=== PATIENT | female | born 1980 | race Caucasian/White ===

== ENCOUNTER 2018-06-26 18:13 | Outpatient (REF) | payer BC, SELFPAY ==
[2018-06-26 22:29] LABS: HCT 38.1 % (36.0-46.0); HGB 11.7 g/dL (12.0-15.5); Mean Corp. HGB Concentration 30.7 g/dL (32.0-36.0); Mean Corpuscular Hemoglobin 22.1 pg (27.0-33.0); Mean Platelet Volume 10.7 fL (8.0-11.0); Platelet Count 397 x1000/uL (130-400); RBC 5.29 m/cumm (4.00-5.20); RBC Distribution Width 17.5 % (11.7-14.6); White Blood Cell Count 9.22 k/cumm (4.4-10.8)
[2018-06-26 22:41] LABS: ALT 98 U/L (12-78); AST 112 U/L (15-37); Albumin 4.1 g/dL (3.4-5.0); Alkaline Phosphatase 77 U/L (46-116); BUN 13 mg/dL (7-18); Bilirubin, Total 0.4 mg/dL (0.2-1.0); Calcium 9.5 mg/dL (8.5-10.1); Chloride 100 mmol/L (98-107); Cholesterol 253 mg/dL (50-200); Glucose 95 mg/dL (70-100); HDL Cholesterol 65 mg/dL (40-60); LDL CHOLESTEROL 176 mg/dL (<100); Sodium 137 mmol/L (136-145); TSH 5.52 uIU/mL (0.358-3.74); Total Protein 8.1 g/dL (6.4-8.2); Triglyceride 101 mg/dL (30-150)
[2018-06-27 12:20] LABS: FREE T4 0.86 ng/dL (0.76-1.46)
== END 2018-06-26 18:33 ==
LOC: NCHCN 18:13
PROVIDERS: PCP Family Medicine; Visit Provider Registered Nurse
DX: R07.89 Other chest pain (principal); R94.6 Abnormal results of thyroid function studies; R03.0 Elevated blood-pressure reading, without diagnosis of hypertension; F41.9 Anxiety disorder, unspecified
CPT/HCPCS: 80053; 80061; 83721; 85027; 84439; 84443

== ENCOUNTER 2018-07-10 15:53 | Outpatient (REF) | payer BC, SELFPAY ==
[2018-07-10 22:13] LABS: Iron 13 ug/dL (50-175); Total Iron Binding Capacity 438 ug/dL (250-450); Transferrin Sat 3 % (15-50)
[2018-07-10 22:26] LABS: ALT 105 U/L (12-78); AST 161 U/L (15-37); Ferritin 18 ng/mL (8-388)
[2018-07-10 22:30] LABS: Abs Immature Grans 0.01 k/cumm (0.0-0.09); Absolute Basophil Count 0.07 k/cumm (0.0-0.2); Absolute Lymphocyte Count 1.47 k/cumm (1.2-3.4); Absolute Monocyte Count 0.73 k/cumm (0.11-0.7); Absolute Neutrophil Count 5.15 k/cumm (1.2-6.7); Basophils % 0.9; Eosinophils % 2.6; HCT 37.8 % (36.0-46.0); HGB 11.4 g/dL (12.0-15.5); Immature Grans % 0.1; Lymphocytes % 19.3; Mean Corp. HGB Concentration 30.2 g/dL (32.0-36.0); Mean Corpuscular Hemoglobin 21.6 pg (27.0-33.0); Mean Corpuscular Volume 71.6 fL (80-95); Mean Platelet Volume 10.5 fL (8.0-11.0); Monocytes % 9.6; Neutrophils % 67.5; Platelet Count 490 x1000/uL (130-400); RBC 5.28 m/cumm (4.00-5.20); RBC Distribution Width 17.2 % (11.7-14.6); White Blood Cell Count 7.63 k/cumm (4.4-10.8)
[2018-07-10 23:33] LABS: Hypochromasia 1+; Microcytosis 1+
== END 2018-07-10 16:13 ==
LOC: NCHCN 15:53
PROVIDERS: PCP Family Medicine; Visit Provider Registered Nurse
DX: D64.9 Anemia, unspecified (principal); R79.89 Other specified abnormal findings of blood chemistry
CPT/HCPCS: 82728; 83540; 83550; 84450; 84460; 85025

== ENCOUNTER 2018-07-19 13:13 | Outpatient (REF) | payer BC, SELFPAY ==
[2018-07-21 11:10] LABS: Hepatitis B Surface Ag Negative (NEGAT)
[2018-07-21 12:25] LABS: Hepatitis C Ab w Rflx HCV PCR Negative (NEGAT)
[2018-07-21 13:03] LABS: HBs Antibody, Quant 44.7 mIU/mL; Hepatitis B Surface Ab Positive
[2018-07-21 13:51] LABS: Hep B Core Antibody Negative (NEGAT)
== END 2018-07-19 13:33 ==
LOC: NCHCN 13:13
PROVIDERS: PCP Family Medicine; Visit Provider Registered Nurse
DX: R79.89 Other specified abnormal findings of blood chemistry (principal); Z11.59 Encounter for screening for other viral diseases
CPT/HCPCS: 86704; 86706; 86803; 87340

== ENCOUNTER 2018-09-18 13:08 | Outpatient (REF) | payer BC, SELFPAY ==
[2018-09-18 22:16] LABS: ALT 133 U/L (12-78); AST 173 U/L (15-37); Albumin 3.7 g/dL (3.4-5.0); Alkaline Phosphatase 96 U/L (46-116); Bilirubin, Direct 0.17 mg/dL (0.00-0.20); Bilirubin, Total 0.4 mg/dL (0.2-1.0); Total Protein 7.9 g/dL (6.4-8.2)
== END 2018-09-18 13:28 ==
LOC: NCHCN 13:08
PROVIDERS: PCP Family Medicine; Visit Provider Registered Nurse
DX: R79.89 Other specified abnormal findings of blood chemistry (principal)
CPT/HCPCS: 80076

== ENCOUNTER 2019-01-03 16:04 | Outpatient (REF) | payer BC, SELFPAY ==
--- NOTE | 2019-01-03 15:30 | PAPFT_PTH ---
PATIENT: Violet Cowan LOC: [facility]#:[id number] AGE/SX: 38/F ROOM: RE01/03/[address]: Julieta Odell : 1980 BED: DIS: 01/03/2019 SPEC #: [id number] RECD: 01/04/19 12:35 STATUS: LAWANDA RESri #: [id number] ELVIS: 01/03/19 15:[address]: Julieta Odell DEPT: [facility] Cytology RECD BY: Raine Juarez ENTERED: 01/04/19 12:35 SP TYPE: PAPFT OTHR DR: Leidy Fitzgerald Tissues: 1 - CX/ENDOCX FOR PAP SMEARS Procedures: PAP THIN PREP/UVM Screening HPV DNA PROBE Comments: [id number]
[2019-01-03 22:02] LABS: HCT 31.3 % (36.0-46.0); HGB 8.9 g/dL (12.0-15.5); Mean Corp. HGB Concentration 28.4 g/dL (32.0-36.0); Mean Corpuscular Hemoglobin 18.7 pg (27.0-33.0); Mean Corpuscular Volume 65.9 fL (80-95); Mean Platelet Volume 10.3 fL (8.0-11.0); Platelet Count 634 x1000/uL (130-400); RBC 4.75 m/cumm (4.00-5.20); RBC Distribution Width 19.5 % (11.7-14.6); White Blood Cell Count 10.01 k/cumm (4.4-10.8)
[2019-01-03 22:13] LABS: ALT 72 U/L (12-78); AST 112 U/L (15-37); Albumin 3.7 g/dL (3.4-5.0); Alkaline Phosphatase 95 U/L (46-116); Bilirubin, Direct 0.19 mg/dL (0.00-0.20); Bilirubin, Total 0.5 mg/dL (0.2-1.0); Total Protein 7.5 g/dL (6.4-8.2)
== END 2019-01-03 16:24 ==
LOC: NCHCN 16:04
PROVIDERS: PCP Family Medicine; Visit Provider Registered Nurse
DX: D64.9 Anemia, unspecified (principal); R79.89 Other specified abnormal findings of blood chemistry; Z12.4 Encounter for screening for malignant neoplasm of cervix; Z11.51 Encounter for screening for human papillomavirus (HPV)
CPT/HCPCS: 80076; 85027; 88142; 87624

== ENCOUNTER 2019-01-17 11:22 | Outpatient (REF) | payer BC, SELFPAY ==
[2019-01-17 21:40] LABS: HCT 28.9 % (36.0-46.0); HGB 8.2 g/dL (12.0-15.5)
== END 2019-01-17 11:42 ==
LOC: NCHCN 11:22
PROVIDERS: PCP Family Medicine; Visit Provider Registered Nurse
DX: D64.9 Anemia, unspecified (principal)
CPT/HCPCS: 85014; 85018

== ENCOUNTER 2019-01-19 10:41 | Outpatient (REF) | payer BC, SELFPAY ==
[2019-01-19 21:26] LABS: Abs Immature Grans 0.01 k/cumm (0.0-0.09); Absolute Eosinophil Count 0.13 k/cumm (0.0-0.7); Absolute Lymphocyte Count 1.15 k/cumm (1.2-3.4); Absolute Monocyte Count 0.77 k/cumm (0.11-0.7); Absolute Neutrophil Count 5.35 k/cumm (1.2-6.7); Basophils % 1.3; Eosinophils % 1.7; HCT 34.6 % (36.0-46.0); HGB 9.7 g/dL (12.0-15.5); Immature Grans % 0.1; Lymphocytes % 15.3; Mean Corpuscular Hemoglobin 18.3 pg (27.0-33.0); Mean Corpuscular Volume 65.2 fL (80-95); Mean Platelet Volume 10.8 fL (8.0-11.0); Monocytes % 10.3; Neutrophils % 71.3; Platelet Count 522 x1000/uL (130-400); RBC 5.31 m/cumm (4.00-5.20); RBC Distribution Width 20.5 % (11.7-14.6); Reticulocyte 1.5 % (0.5-2.4); White Blood Cell Count 7.51 k/cumm (4.4-10.8)
[2019-01-19 21:50] LABS: Ferritin 12 ng/mL (8-388); Iron 393 ug/dL (50-175); Total Iron Binding Capacity 513 ug/dL (250-450); Transferrin Sat 77 % (15-50)
[2019-01-19 21:58] LABS: Anisocytosis 2+; Hypochromasia 1+; Macrocytosis 1+; Microcytosis 2+; Polychromasia Present
[2019-01-22 11:27] LABS: IgA 278 mg/dL (85-499); Interpretation SEE COMMENTS; Tissue Transglutaminase IgA <1.2 U/mL (<4.0)
== END 2019-01-19 11:01 ==
LOC: NCHCN 10:41
PROVIDERS: PCP Family Medicine; Visit Provider Family Medicine
DX: D64.9 Anemia, unspecified (principal)
CPT/HCPCS: 82784; 83516; 82728; 83540; 83550; 85025; 85045

== ENCOUNTER 2019-03-28 11:51 | Outpatient (REF) | payer BC, SELFPAY | END 2019-03-28 12:11 | LOC: NCHCN 11:51 | PROVIDERS: PCP Family Medicine; Visit Provider Registered Nurse | DX: Z87.440 Personal history of urinary (tract) infections (principal); F41.9 Anxiety disorder, unspecified; N98.2 Complications of attempted introduction of fertilized ovum following in vitro fertilization; R60.0 Localized edema | CPT/HCPCS: 87077; 87086 ==

== ENCOUNTER 2019-07-16 21:31 | Outpatient (REF) | payer BC, SELFPAY ==
[2019-07-16 21:53] LABS: Bilirubin Negative (Negative); Blood Trace-intact (Negative); Clarity Sl Cloudy (Clear); Glucose Negative (Negative); Ketones Negative (Negative); Leukocyte Esterase Moderate (Negative); Nitrite Negative (Negative); Specific Gravity 1.025 (1.005-1.025); Urobilinogen 0.2 EU/dL (Up TO 0.2); pH 6.5 (5-8)
[2019-07-16 22:12] LABS: Bacteria Many HPF (Negative); C & S Indicated? Yes; Casts Negative LPF (Negative); Crystals Few Amorphous HPF (Negative); Epithelial Cells Few HPF (Negative); Mucus Negative (Negative); WBC 20-50 HPF (0-5)
== END 2019-07-16 21:51 ==
LOC: NCHCN 21:31
PROVIDERS: PCP Family Medicine; Visit Provider Family Medicine
DX: N39.0 Urinary tract infection, site not specified (principal); Z87.440 Personal history of urinary (tract) infections
CPT/HCPCS: 87077; 81003; 81015; 87086; 87186

== ENCOUNTER 2019-07-23 11:29 | Outpatient (REF) | payer BC, SELFPAY | END 2019-07-23 11:49 | LOC: NCHCN 11:29 | PROVIDERS: PCP Family Medicine; Visit Provider Family Medicine | DX: N39.0 Urinary tract infection, site not specified (principal); Z87.440 Personal history of urinary (tract) infections | CPT/HCPCS: 87086 ==

== ENCOUNTER 2019-08-09 11:39 | Outpatient (REF) | payer BC, SELFPAY ==
[2019-08-09 21:37] LABS: HCT 31.1 % (36.0-46.0); HGB 8.9 g/dL (12.0-15.5); Mean Corp. HGB Concentration 28.6 g/dL (32.0-36.0); Mean Corpuscular Hemoglobin 22.7 pg (27.0-33.0); Mean Corpuscular Volume 79.3 fL (80-95); Mean Platelet Volume 10.8 fL (8.0-11.0); Platelet Count 707 x1000/uL (130-400); RBC 3.92 m/cumm (4.00-5.20); RBC Distribution Width 22.3 % (11.7-14.6); White Blood Cell Count 7.63 k/cumm (4.4-10.8)
[2019-08-09 21:55] LABS: ALT 49 U/L (14-59); AST 124 U/L (15-37); Albumin 3.2 g/dL (3.4-5.0); Alkaline Phosphatase 124 U/L (46-116); Anion Gap 12.5 mmol/L (3-11); BUN 7 mg/dL (7-18); Bilirubin, Total 0.5 mg/dL (0.2-1.0); CO2 25.5 mmol/L (21.0-32.0); Calcium 8.9 mg/dL (8.5-10.1); Chloride 105 mmol/L (98-107); Glucose 81 mg/dL (74-106); Potassium 4.1 mmol/L (3.5-5.1); Sodium 143 mmol/L (136-145); Total Protein 6.7 g/dL (6.4-8.2)
[2019-08-09 22:09] LABS: Bacteria Many HPF (Negative); C & S Indicated? C&S Done As Ordered; Crystals Negative HPF (Negative); Epithelial Cells Many HPF (Negative); Mucus Negative (Negative); Other Cells Few Transitional (Negative); RBC 0-2 HPF (0-2)
== END 2019-08-09 11:59 ==
LOC: NCHCN 11:39
PROVIDERS: PCP Family Medicine; Visit Provider Registered Nurse
DX: R60.0 Localized edema (principal); D64.9 Anemia, unspecified; R79.89 Other specified abnormal findings of blood chemistry; N39.0 Urinary tract infection, site not specified
CPT/HCPCS: 80053; 85027; 87077; 81015; 87086

== ENCOUNTER 2019-09-13 19:57 | Outpatient (REF) | payer BC, SELFPAY ==
[2019-09-13 21:08] LABS: HGB 9.9 g/dL (12.0-15.5); Mean Corp. HGB Concentration 29.1 g/dL (32.0-36.0); Mean Corpuscular Hemoglobin 23.9 pg (27.0-33.0); Mean Corpuscular Volume 82.1 fL (80-95); Mean Platelet Volume 10.3 fL (8.0-11.0); Platelet Count 470 x1000/uL (130-400); RBC 4.14 m/cumm (4.00-5.20); RBC Distribution Width 19.5 % (11.7-14.6); White Blood Cell Count 7.86 k/cumm (4.4-10.8)
[2019-09-13 21:34] LABS: ALT 55 U/L (14-59); AST 197 U/L (15-37); Albumin 3.4 g/dL (3.4-5.0); Alkaline Phosphatase 116 U/L (46-116); Bilirubin, Total 0.4 mg/dL (0.2-1.0); Total Protein 7.2 g/dL (6.4-8.2)
[2019-09-13 21:49] LABS: Bilirubin, Direct 0.17 mg/dL (0.00-0.20)
== END 2019-09-13 20:17 ==
LOC: NCHCN 19:57
PROVIDERS: PCP Family Medicine; Visit Provider Registered Nurse
DX: D64.9 Anemia, unspecified (principal); R79.89 Other specified abnormal findings of blood chemistry
CPT/HCPCS: 80076; 85027

== ENCOUNTER 2019-09-24 11:05 | Outpatient (REF) | payer BC, SELFPAY ==
[2019-09-24 21:28] LABS: HCT 37.2 % (36.0-46.0); HGB 11.3 g/dL (12.0-15.5); Mean Corp. HGB Concentration 30.4 g/dL (32.0-36.0); Mean Corpuscular Hemoglobin 24.3 pg (27.0-33.0); Platelet Count 495 x1000/uL (130-400); RBC 4.65 m/cumm (4.00-5.20); RBC Distribution Width 17.7 % (11.7-14.6)
== END 2019-09-24 11:25 ==
LOC: NCHCN 11:05
PROVIDERS: PCP Family Medicine; Visit Provider Registered Nurse
DX: D64.9 Anemia, unspecified (principal)
CPT/HCPCS: 85027

== ENCOUNTER 2019-10-08 21:57 | Outpatient (REF) | payer BC, SELFPAY ==
[2019-10-08 21:44] LABS: HCT 35.3 % (36.0-46.0); HGB 10.7 g/dL (12.0-15.5); Mean Corp. HGB Concentration 30.3 g/dL (32.0-36.0); Mean Corpuscular Hemoglobin 24.2 pg (27.0-33.0); Mean Corpuscular Volume 79.9 fL (80-95); Mean Platelet Volume 10.6 fL (8.0-11.0); Platelet Count 355 x1000/uL (130-400); RBC 4.42 m/cumm (4.00-5.20); RBC Distribution Width 17.3 % (11.7-14.6); White Blood Cell Count 7.84 k/cumm (4.4-10.8)
== END 2019-10-08 22:17 ==
LOC: NCHCN 21:57
PROVIDERS: PCP Family Medicine; Visit Provider Registered Nurse
DX: K92.2 Gastrointestinal hemorrhage, unspecified (principal)
CPT/HCPCS: 85027

== ENCOUNTER 2019-10-29 09:12 | Outpatient (REF) | payer BC, SELFPAY ==
[2019-10-29 20:03] LABS: HGB 13.5 g/dL (12.0-15.5); Mean Corp. HGB Concentration 31.4 g/dL (32.0-36.0); Mean Corpuscular Hemoglobin 26.1 pg (27.0-33.0); Mean Platelet Volume 10.9 fL (8.0-11.0); Platelet Count 528 x1000/uL (130-400); RBC 5.18 m/cumm (4.00-5.20); RBC Distribution Width 18.7 % (11.7-14.6); White Blood Cell Count 16.16 k/cumm (4.4-10.8)
== END 2019-10-29 09:32 ==
LOC: NCHCN 09:12
PROVIDERS: PCP Family Medicine; Visit Provider Registered Nurse
DX: D64.9 Anemia, unspecified (principal)
CPT/HCPCS: 85027

== ENCOUNTER 2020-02-07 14:11 | Outpatient (REF) | payer BC, SELFPAY | END 2020-02-07 14:31 | LOC: NCHCN 14:11 | PROVIDERS: PCP Family Medicine; Visit Provider Registered Nurse | DX: Z87.440 Personal history of urinary (tract) infections (principal) | CPT/HCPCS: 87077; 87086; 87186 ==

== ENCOUNTER 2020-02-12 16:41 | Outpatient (REF) | payer BC, SELFPAY | END 2020-02-12 17:01 | LOC: NCHCN 16:41 | PROVIDERS: PCP Family Medicine; Visit Provider Family Medicine | DX: Z87.440 Personal history of urinary (tract) infections (principal) | CPT/HCPCS: 87086 ==

== ENCOUNTER 2020-04-25 12:02 | Outpatient (REF) | payer BC, SELFPAY ==
[2020-04-25 21:08] LABS: Abs Immature Grans 0.18 10^3/uL (0.0-0.06); HCT 34.8 % (36.0-46.0); HGB 11.5 g/dL (11.2-15.7); MCH 29.4 pg (27.0-33.0); MPV 11.2 fL (8.0-11.0); Nucleated RBC 0 %; Platelet Count 659 10^3/uL (130-400); RBC 3.91 10^6/uL (3.93-5.22); RDW 18.9 % (11.7-14.6); RDW-SD 59.9 fL
[2020-04-25 21:43] LABS: WBC 27.39 10^3/uL (4.4-10.8)
[2020-04-25 21:44] LABS: Absolute Lymphocyte Count 1.92 10^3/uL (1.2-3.4); Absolute Monocyte Count 2.47 10^3/uL (0.1-0.8); Absolute Neutrophil Count 23.01 10^3/uL (1.2-6.7); Bands % 4
[2020-04-25 21:45] LABS: Diff Comment Manual Differential; Poikilocytes 1+
[2020-04-25 21:59] LABS: ALT 38 U/L (14-59); AST 180 U/L (15-37); Albumin 1.9 g/dL (3.4-5.0); Alkaline Phosphatase 142 U/L (46-116); BUN 6 mg/dL (7-18); Calcium 8.2 mg/dL (8.5-10.1); Chloride 100 mmol/L (98-107); Glucose 98 mg/dL (74-106); Potassium 3.7 mmol/L (3.5-5.1); Sodium 135 mmol/L (136-145); Total Protein 5.8 g/dL (6.4-8.2)
[2020-04-25 22:13] LABS: Bilirubin, Total 19.2 mg/dL (0.2-1.0)
== END 2020-04-25 12:22 ==
LOC: NCHCN 12:02
PROVIDERS: PCP Family Medicine; Visit Provider Registered Nurse
DX: D64.9 Anemia, unspecified (principal); K92.2 Gastrointestinal hemorrhage, unspecified
CPT/HCPCS: 80053; 85025; 85610

== ENCOUNTER 2020-06-10 11:09 | Outpatient (REF) | payer BC, SELFPAY ==
[2020-06-10 21:10] LABS: Abs Immature Grans 0.06 10^3/uL (0.0-0.06); Absolute Basophil Count 0.03 10^3/uL (0.0-0.2); Absolute Eosinophil Count 0.27 10^3/uL (0.0-0.7); Absolute Lymphocyte Count 2.28 10^3/uL (1.2-3.4); Absolute Monocyte Count 1.03 10^3/uL (0.1-0.8); Basophils % 0.2; Eosinophils % 1.9; HCT 28.5 % (36.0-46.0); HGB 8.5 g/dL (11.2-15.7); Immature Grans % 0.4; MCH 25.2 pg (27.0-33.0); MCHC 29.8 % (32.0-36.0); MCV 84.6 fL (80-95); MPV 12.3 fL (8.0-11.0); Monocytes % 7.2; Neutrophils % 74.3; Nucleated RBC 0 %; Platelet Count 240 10^3/uL (130-400); RBC 3.37 10^6/uL (3.93-5.22); RDW 18.7 % (11.7-14.6); RDW-SD 57.2 fL; WBC 14.26 10^3/uL (4.4-10.8)
[2020-06-10 21:26] LABS: Prothrombin Time 13.5 sec (9.3-11.0)
[2020-06-10 21:27] LABS: ALT 65 U/L (14-59); AST 94 U/L (15-37); Albumin 2.8 g/dL (3.4-5.0); Alkaline Phosphatase 118 U/L (46-116); Anion Gap 5.4 mmol/L (3-11); BUN 11 mg/dL (7-18); Bilirubin, Total 12.6 mg/dL (0.2-1.0); CO2 32.6 mmol/L (21.0-32.0); CREATININE 0.88 mg/dL (0.55-1.02); Calcium 8.8 mg/dL (8.5-10.1); Chloride 97 mmol/L (98-107); Glucose 142 mg/dL (74-106); Sodium 135 mmol/L (136-145); Total Protein 6.4 g/dL (6.4-8.2)
[2020-06-10 21:35] LABS: INR 1.3 (0.9-1.1)
[2020-06-10 22:20] LABS: Potassium 2.8 mmol/L (3.5-5.1)
== END 2020-06-10 11:29 ==
LOC: LBN 11:09
PROVIDERS: PCP Family Medicine; Visit Provider Internal Medicine
DX: K70.11 Alcoholic hepatitis with ascites (principal)
CPT/HCPCS: 80053; 85025; 85610

== ENCOUNTER 2020-06-24 21:50 | Outpatient (REF) | payer BC, SELFPAY ==
[2020-06-24 21:49] LABS: Abs Immature Grans 0.05 10^3/uL (0.0-0.06); Absolute Basophil Count 0.01 10^3/uL (0.0-0.2); Absolute Eosinophil Count 0.02 10^3/uL (0.0-0.7); Absolute Lymphocyte Count 1.59 10^3/uL (1.2-3.4); Absolute Monocyte Count 0.75 10^3/uL (0.1-0.8); Absolute Neutrophil Count 9.35 10^3/uL (1.2-6.7); Basophils % 0.1; Eosinophils % 0.2; HCT 33.9 % (36.0-46.0); HGB 10.3 g/dL (11.2-15.7); Immature Grans % 0.4; Lymphocytes % 13.5; MCH 25.9 pg (27.0-33.0); MCHC 30.4 % (32.0-36.0); MCV 85.4 fL (80-95); MPV 10.6 fL (8.0-11.0); Monocytes % 6.4; Neutrophils % 79.4; Nucleated RBC 0 %; Platelet Count 256 10^3/uL (130-400); RBC 3.97 10^6/uL (3.93-5.22); RDW 18.3 % (11.7-14.6); RDW-SD 55.7 fL; WBC 11.77 10^3/uL (4.4-10.8)
[2020-06-24 22:47] LABS: ALT 37 U/L (14-59); AST 89 U/L (15-37); Alkaline Phosphatase 130 U/L (46-116); Anion Gap 10.9 mmol/L (3-11); BUN 13 mg/dL (7-18); Bilirubin, Total 7.5 mg/dL (0.2-1.0); CO2 21.1 mmol/L (21.0-32.0); Calcium 8.8 mg/dL (8.5-10.1); Chloride 108 mmol/L (98-107); Glucose 92 mg/dL (74-106); Potassium 3.4 mmol/L (3.5-5.1); Sodium 140 mmol/L (136-145); Total Protein 7.3 g/dL (6.4-8.2)
== END 2020-06-24 22:10 ==
LOC: NCHCN 21:50
PROVIDERS: PCP Family Medicine; Visit Provider Nurse Practitioner Family
DX: D64.9 Anemia, unspecified (principal); K70.31 Alcoholic cirrhosis of liver with ascites; K72.90 Hepatic failure, unspecified without coma
CPT/HCPCS: 80053; 85025

== ENCOUNTER 2020-07-01 09:52 | Outpatient (REF) | payer BC, SELFPAY ==
[2020-07-01 22:07] LABS: INR 1.3 (0.9-1.1); Prothrombin Time 12.8 sec (9.3-11.0)
[2020-07-01 22:17] LABS: Abs Immature Grans 0.01 10^3/uL (0.0-0.06); Absolute Basophil Count 0.05 10^3/uL (0.0-0.2); Absolute Eosinophil Count 0.06 10^3/uL (0.0-0.7); Absolute Lymphocyte Count 1.68 10^3/uL (1.2-3.4); Absolute Monocyte Count 0.68 10^3/uL (0.1-0.8); Basophils % 0.8; Eosinophils % 0.9; HCT 34.8 % (36.0-46.0); HGB 10.6 g/dL (11.2-15.7); Immature Grans % 0.2; Lymphocytes % 26.3; MCH 25.7 pg (27.0-33.0); MCHC 30.5 % (32.0-36.0); MCV 84.5 fL (80-95); MPV 11.5 fL (8.0-11.0); Monocytes % 10.7; Neutrophils % 61.1; Nucleated RBC 0 %; Platelet Count 327 10^3/uL (130-400); RBC 4.12 10^6/uL (3.93-5.22); RDW-SD 55.7 fL; WBC 6.38 10^3/uL (4.4-10.8)
[2020-07-01 22:58] LABS: ALT 26 U/L (14-59); AST 57 U/L (15-37); Albumin 3.1 g/dL (3.4-5.0); Alkaline Phosphatase 95 U/L (46-116); Anion Gap 7.9 mmol/L (3-11); BUN 19 mg/dL (7-18); Bilirubin, Total 6.6 mg/dL (0.2-1.0); CO2 30.1 mmol/L (21.0-32.0); CREATININE 1.26 mg/dL (0.55-1.02); Calcium 9.1 mg/dL (8.5-10.1); Chloride 101 mmol/L (98-107); Glucose 183 mg/dL (74-106); Potassium 3.2 mmol/L (3.5-5.1); Sodium 139 mmol/L (136-145); Total Protein 7.2 g/dL (6.4-8.2)
== END 2020-07-01 10:12 ==
LOC: LBN 09:52
PROVIDERS: PCP Family Medicine; Visit Provider Internal Medicine
DX: K70.11 Alcoholic hepatitis with ascites (principal)
CPT/HCPCS: 80053; 85025; 85610

== ENCOUNTER 2020-07-10 21:27 | Outpatient (REF) | payer BC, SELFPAY ==
[2020-07-10 21:37] LABS: Abs Immature Grans 0.02 10^3/uL (0.0-0.06); Absolute Eosinophil Count 0.16 10^3/uL (0.0-0.7); Absolute Lymphocyte Count 1.88 10^3/uL (1.2-3.4); Absolute Monocyte Count 0.83 10^3/uL (0.1-0.8); Absolute Neutrophil Count 4.69 10^3/uL (1.2-6.7); Basophils % 1.3; Eosinophils % 2.1; HCT 33.2 % (36.0-46.0); HGB 10.2 g/dL (11.2-15.7); Immature Grans % 0.3; Lymphocytes % 24.5; MCHC 30.7 % (32.0-36.0); MCV 81.4 fL (80-95); MPV 11.8 fL (8.0-11.0); Monocytes % 10.8; Nucleated RBC 0 %; Platelet Count 283 10^3/uL (130-400); RBC 4.08 10^6/uL (3.93-5.22); RDW 18.1 % (11.7-14.6); RDW-SD 53.9 fL; WBC 7.68 10^3/uL (4.4-10.8)
[2020-07-10 21:52] LABS: ALT 23 U/L (14-59); AST 54 U/L (15-37); Albumin 3.1 g/dL (3.4-5.0); Alkaline Phosphatase 97 U/L (46-116); Anion Gap 8.9 mmol/L (3-11); BUN 13 mg/dL (7-18); Bilirubin, Total 4.5 mg/dL (0.2-1.0); CO2 27.1 mmol/L (21.0-32.0); CREATININE 1.08 mg/dL (0.55-1.02); Calcium 8.9 mg/dL (8.5-10.1); Chloride 103 mmol/L (98-107); Estimated GFR 55.91 (mL/min/1.73m2); Glucose 103 mg/dL (74-106); Potassium 3.2 mmol/L (3.5-5.1); Sodium 139 mmol/L (136-145); Total Protein 7.1 g/dL (6.4-8.2)
[2020-07-10 22:21] LABS: INR 1.2 (0.9-1.1); Prothrombin Time 12.3 sec (9.3-11.0)
== END 2020-07-10 21:47 ==
LOC: LBN 21:27
PROVIDERS: PCP Family Medicine; Visit Provider Internal Medicine
DX: K70.11 Alcoholic hepatitis with ascites (principal)
CPT/HCPCS: 80053; 85025; 85610

== ENCOUNTER 2020-07-31 20:28 | Outpatient (REF) | payer BC, SELFPAY ==
[2020-07-31 20:44] LABS: INR 1.3 (0.9-1.1); Prothrombin Time 12.6 sec (9.3-11.0)
[2020-07-31 20:49] LABS: Abs Immature Grans 0.01 10^3/uL (0.0-0.06); Absolute Basophil Count 0.04 10^3/uL (0.0-0.2); Absolute Eosinophil Count 0.15 10^3/uL (0.0-0.7); Absolute Lymphocyte Count 1.58 10^3/uL (1.2-3.4); Absolute Monocyte Count 0.53 10^3/uL (0.1-0.8); Absolute Neutrophil Count 4.17 10^3/uL (1.2-6.7); Basophils % 0.6; Eosinophils % 2.3; HCT 28.7 % (36.0-46.0); HGB 8.8 g/dL (11.2-15.7); Immature Grans % 0.2; Lymphocytes % 24.4; MCH 23.9 pg (27.0-33.0); MCHC 30.7 % (32.0-36.0); MPV 11.1 fL (8.0-11.0); Monocytes % 8.2; Neutrophils % 64.3; Nucleated RBC 0 %; Platelet Count 259 10^3/uL (130-400); RBC 3.68 10^6/uL (3.93-5.22); RDW 16.2 % (11.7-14.6); RDW-SD 46.2 fL; WBC 6.48 10^3/uL (4.4-10.8)
[2020-07-31 21:09] LABS: ALT 18 U/L (14-59); AST 37 U/L (15-37); Albumin 3.1 g/dL (3.4-5.0); Alkaline Phosphatase 84 U/L (46-116); Anion Gap 9.4 mmol/L (3-11); BUN 12 mg/dL (7-18); Bilirubin, Total 2.9 mg/dL (0.2-1.0); CO2 26.6 mmol/L (21.0-32.0); CREATININE 1.11 mg/dL (0.55-1.02); Calcium 8.5 mg/dL (8.5-10.1); Chloride 103 mmol/L (98-107); Estimated GFR 54.17 (mL/min/1.73m2); Glucose 123 mg/dL (74-106); Potassium 3.3 mmol/L (3.5-5.1); Sodium 139 mmol/L (136-145); Total Protein 6.8 g/dL (6.4-8.2)
== END 2020-07-31 20:48 ==
LOC: LBN 20:28
PROVIDERS: PCP Family Medicine; Referring Provider Registered Nurse; Visit Provider Internal Medicine
DX: K70.11 Alcoholic hepatitis with ascites (principal)
CPT/HCPCS: 80053; 85025; 85610

== ENCOUNTER 2020-08-26 13:59 | Outpatient (REF) | payer BC, SELFPAY ==
[2020-08-26 13:48] LABS: Abs Immature Grans 0.01 10^3/uL (0.0-0.06); Absolute Basophil Count 0.04 10^3/uL (0.0-0.2); Absolute Eosinophil Count 0.08 10^3/uL (0.0-0.7); Absolute Monocyte Count 0.38 10^3/uL (0.1-0.8); Absolute Neutrophil Count 2.52 10^3/uL (1.2-6.7); Eosinophils % 1.9; HCT 22.8 % (36.0-46.0); Immature Grans % 0.2; Lymphocytes % 26.6; MCH 22.1 pg (27.0-33.0); MCHC 30.3 % (32.0-36.0); MCV 73.1 fL (80-95); MPV 10.1 fL (8.0-11.0); Monocytes % 9.2; Neutrophils % 61.1; Nucleated RBC 0 %; Platelet Count 232 10^3/uL (130-400); RBC 3.12 10^6/uL (3.93-5.22); RDW 14.8 % (11.7-14.6); RDW-SD 39.2 fL; WBC 4.13 10^3/uL (4.4-10.8)
[2020-08-26 13:52] LABS: INR 1.2 (0.9-1.1); Prothrombin Time 12.1 sec (9.3-11.0)
[2020-08-26 14:36] LABS: ALT 18 U/L (14-59); AST 31 U/L (15-37); Albumin 2.9 g/dL (3.4-5.0); Alkaline Phosphatase 77 U/L (46-116); BUN 13 mg/dL (7-18); CREATININE 0.97 mg/dL (0.55-1.02); Calcium 8.6 mg/dL (8.5-10.1); Chloride 106 mmol/L (98-107); Glucose 89 mg/dL (74-106); Potassium 3.4 mmol/L (3.5-5.1); Sodium 138 mmol/L (136-145); Total Protein 6.3 g/dL (6.4-8.2)
[2020-08-26 14:41] LABS: HGB 6.9 g/dL (11.2-15.7)
[2020-08-26 14:43] LABS: Acanthocytes 1+; Diff Comment RBC Morph Reviewed
[2020-08-26 14:44] LABS: Hypochromasia 2+; Microcytosis 2+; Polychromasia Present
[2020-08-26 14:45] LABS: Ovalocytes 2+
[2020-08-26 14:46] LABS: Poikilocytes 2+
== END 2020-08-26 14:19 ==
LOC: NCHCN 13:59
PROVIDERS: PCP Family Medicine; Referring Provider Registered Nurse; Visit Provider Internal Medicine
DX: K70.11 Alcoholic hepatitis with ascites (principal)
CPT/HCPCS: 80053; 85025; 85610

== ENCOUNTER 2020-08-27 17:59 | Outpatient (REF) | payer BC, SELFPAY ==
[2020-08-27 22:09] LABS: HCT 29.5 % (36.0-46.0); MCH 23.5 pg (27.0-33.0); MCHC 31.9 % (32.0-36.0); MCV 73.8 fL (80-95); MPV 10.6 fL (8.0-11.0); Platelet Count 245 10^3/uL (130-400); RDW 15.6 % (11.7-14.6); RDW-SD 41.4 fL; WBC 5.68 10^3/uL (4.4-10.8)
[2020-08-27 22:10] LABS: HGB 9.4 g/dL (11.2-15.7)
[2020-08-27 22:13] LABS: Iron 15 ug/dL (50-170); Total Iron Binding Capacity 426 ug/dL (250-450); Transferrin Sat 4 % (15-50)
[2020-08-27 22:27] LABS: Ferritin 15 ng/mL (8-252)
== END 2020-08-27 18:19 ==
LOC: NCHCN 17:59
PROVIDERS: PCP Family Medicine; Visit Provider Registered Nurse
DX: D64.9 Anemia, unspecified (principal); K92.2 Gastrointestinal hemorrhage, unspecified; K70.31 Alcoholic cirrhosis of liver with ascites
CPT/HCPCS: 85027; 82728; 83540; 83550

== ENCOUNTER 2020-09-04 15:05 | Outpatient (REF) | payer BC, SELFPAY ==
[2020-09-04 13:53] LABS: HGB 9.9 g/dL (11.2-15.7); MCH 23.3 pg (27.0-33.0); MCHC 30.9 % (32.0-36.0); MCV 75.5 fL (80-95); MPV 11.2 fL (8.0-11.0); Platelet Count 208 10^3/uL (130-400); RBC 4.24 10^6/uL (3.93-5.22); RDW 18.8 % (11.7-14.6); RDW-SD 50.3 fL; WBC 5.51 10^3/uL (4.4-10.8)
== END 2020-09-04 15:06 | disposition home or self-care (01) ==
LOC: NCHCN 15:05
PROVIDERS: PCP Family Medicine; Visit Provider Registered Nurse
DX: D64.9 Anemia, unspecified (principal); K72.90 Hepatic failure, unspecified without coma
CPT/HCPCS: 85027

== ENCOUNTER 2020-10-01 14:39 | Outpatient (REF) | payer BC, SELFPAY ==
[2020-10-01 13:21] LABS: Abs Immature Grans 0.02 10^3/uL (0.0-0.06); Absolute Basophil Count 0.05 10^3/uL (0.0-0.2); Absolute Lymphocyte Count 1.14 10^3/uL (1.2-3.4); Absolute Monocyte Count 0.59 10^3/uL (0.1-0.8); Basophils % 0.8; Eosinophils % 1.7; HCT 32.2 % (36.0-46.0); HGB 9.9 g/dL (11.2-15.7); Immature Grans % 0.3; MCH 23.3 pg (27.0-33.0); MCHC 30.7 % (32.0-36.0); MCV 75.8 fL (80-95); MPV 10.5 fL (8.0-11.0); Monocytes % 9.8; Neutrophils % 68.4; Nucleated RBC 0 %; Platelet Count 234 10^3/uL (130-400); RBC 4.25 10^6/uL (3.93-5.22); RDW 18.8 % (11.7-14.6)
[2020-10-01 13:32] LABS: ALT 19 U/L (14-59); AST 31 U/L (15-37); Albumin 3.1 g/dL (3.4-5.0); Alkaline Phosphatase 80 U/L (46-116); Anion Gap 10.1 mmol/L (3-11); BUN 15 mg/dL (7-18); CO2 24.9 mmol/L (21.0-32.0); Calcium 8.8 mg/dL (8.5-10.1); Chloride 105 mmol/L (98-107); Glucose 99 mg/dL (74-106); Potassium 3.7 mmol/L (3.5-5.1); Sodium 140 mmol/L (136-145)
[2020-10-01 13:41] LABS: INR 1.1 (0.9-1.1); Prothrombin Time 11.4 sec (9.3-11.0)
== END 2020-10-01 14:40 | disposition home or self-care (01) ==
LOC: LBN 14:39
PROVIDERS: PCP Family Medicine; Visit Provider Internal Medicine
DX: K70.11 Alcoholic hepatitis with ascites (principal)
CPT/HCPCS: 80053; 85025; 85610

== ENCOUNTER 2020-11-05 11:03 | Outpatient (REF) | payer BC, SELFPAY ==
[2020-11-05 13:55] LABS: Abs Immature Grans 0.01 10^3/uL (0.0-0.06); Absolute Basophil Count 0.04 10^3/uL (0.0-0.2); Absolute Eosinophil Count 0.09 10^3/uL (0.0-0.7); Absolute Lymphocyte Count 1.25 10^3/uL (1.2-3.4); Absolute Monocyte Count 0.54 10^3/uL (0.1-0.8); Absolute Neutrophil Count 3.55 10^3/uL (1.2-6.7); Basophils % 0.7; Eosinophils % 1.6; HCT 30.3 % (36.0-46.0); HGB 9.2 g/dL (11.2-15.7); Immature Grans % 0.2; Lymphocytes % 22.8; MCH 23.9 pg (27.0-33.0); MCHC 30.4 % (32.0-36.0); MCV 78.7 fL (80-95); MPV 10.6 fL (8.0-11.0); Monocytes % 9.9; Neutrophils % 64.8; Nucleated RBC 0 %; Platelet Count 236 10^3/uL (130-400); RBC 3.85 10^6/uL (3.93-5.22); RDW 16.5 % (11.7-14.6); RDW-SD 47.1 fL; WBC 5.48 10^3/uL (4.4-10.8)
[2020-11-05 14:05] LABS: INR 1.1 (0.9-1.1); Prothrombin Time 11.3 sec (9.3-11.0)
[2020-11-05 14:39] LABS: ALT 19 U/L (14-59); AST 30 U/L (15-37); Albumin 3.2 g/dL (3.4-5.0); Alkaline Phosphatase 81 U/L (46-116); Anion Gap 9.3 mmol/L (3-11); BUN 16 mg/dL (7-18); Bilirubin, Total 0.7 mg/dL (0.2-1.0); CO2 26.7 mmol/L (21.0-32.0); CREATININE 0.9 mg/dL (0.55-1.02); Calcium 8.7 mg/dL (8.5-10.1); Chloride 105 mmol/L (98-107); Glucose 85 mg/dL (74-106); Potassium 3.9 mmol/L (3.5-5.1); Sodium 141 mmol/L (136-145); Total Protein 6.5 g/dL (6.4-8.2)
[2020-11-07 10:10] LABS: AFP Tumor Marker 4.5 ng/mL (<8.1)
== END 2020-11-05 11:04 | disposition home or self-care (01) ==
LOC: NCHCN 11:03
PROVIDERS: Registered Nurse; PCP Family Medicine; Visit Provider Family Medicine
DX: K70.11 Alcoholic hepatitis with ascites (principal)
CPT/HCPCS: 80053; 82105; 85025; 85610

== ENCOUNTER 2020-11-12 14:41 | Outpatient (REF) | payer BC, SELFPAY ==
[2020-11-12 13:27] LABS: Abs Immature Grans 0.02 10^3/uL (0.0-0.06); Absolute Basophil Count 0.04 10^3/uL (0.0-0.2); Absolute Eosinophil Count 0.07 10^3/uL (0.0-0.7); Absolute Lymphocyte Count 1.29 10^3/uL (1.2-3.4); Basophils % 0.7; Eosinophils % 1.2; HCT 31.3 % (36.0-46.0); HGB 9.6 g/dL (11.2-15.7); Immature Grans % 0.3; Lymphocytes % 22.6; MCH 23.9 pg (27.0-33.0); MCHC 30.7 % (32.0-36.0); MCV 77.9 fL (80-95); MPV 10.6 fL (8.0-11.0); Monocytes % 10.5; Neutrophils % 64.7; Nucleated RBC 0 %; Platelet Count 268 10^3/uL (130-400); RBC 4.02 10^6/uL (3.93-5.22); RDW 15.9 % (11.7-14.6); RDW-SD 45.7 fL; WBC 5.72 10^3/uL (4.4-10.8)
== END 2020-11-12 14:42 | disposition home or self-care (01) ==
LOC: NCHCN 14:41
PROVIDERS: PCP Family Medicine; Visit Provider Registered Nurse
DX: K92.2 Gastrointestinal hemorrhage, unspecified (principal)
CPT/HCPCS: 85025

== ENCOUNTER 2020-12-03 13:14 | Outpatient (REF) | payer BC, SELFPAY ==
[2020-12-03 13:07] LABS: Abs Immature Grans 0.01 10^3/uL (0.0-0.06); Absolute Basophil Count 0.06 10^3/uL (0.0-0.2); Absolute Eosinophil Count 0.12 10^3/uL (0.0-0.7); Absolute Lymphocyte Count 1.66 10^3/uL (1.2-3.4); Absolute Monocyte Count 0.51 10^3/uL (0.1-0.8); Absolute Neutrophil Count 3.63 10^3/uL (1.2-6.7); HCT 33.8 % (36.0-46.0); HGB 10.3 g/dL (11.2-15.7); Immature Grans % 0.2; Lymphocytes % 27.7; MCH 24.1 pg (27.0-33.0); MCHC 30.5 % (32.0-36.0); MPV 10.1 fL (8.0-11.0); Monocytes % 8.5; Neutrophils % 60.6; Nucleated RBC 0 %; Platelet Count 242 10^3/uL (130-400); RBC 4.28 10^6/uL (3.93-5.22); RDW 15.4 % (11.7-14.6); WBC 5.99 10^3/uL (4.4-10.8)
[2020-12-03 13:57] LABS: ALT 21 U/L (14-59); AST 28 U/L (15-37); Albumin 3.5 g/dL (3.4-5.0); Alkaline Phosphatase 80 U/L (46-116); Anion Gap 10.4 mmol/L (3-11); BUN 15 mg/dL (7-18); Bilirubin, Total 0.7 mg/dL (0.2-1.0); CO2 25.6 mmol/L (21.0-32.0); CREATININE 0.9 mg/dL (0.55-1.02); Calcium 9.1 mg/dL (8.5-10.1); Chloride 105 mmol/L (98-107); Glucose 84 mg/dL (74-106); Potassium 4.1 mmol/L (3.5-5.1); Sodium 141 mmol/L (136-145)
[2020-12-03 16:14] LABS: INR 1.1 (0.9-1.1)
[2020-12-05 09:48] LABS: AFP Tumor Marker 3.8 ng/mL (<8.1)
== END 2020-12-03 13:15 | disposition home or self-care (01) ==
LOC: NCHCN 13:14
PROVIDERS: Internal Medicine; PCP Family Medicine; Visit Provider Registered Nurse
DX: K70.11 Alcoholic hepatitis with ascites (principal)
CPT/HCPCS: 80053; 82105; 85025; 85610

== ENCOUNTER 2021-01-14 17:14 | Outpatient (REF) | payer BC, SELFPAY ==
[2021-01-14 17:29] LABS: HCT 34.3 % (36.0-46.0); HGB 10.4 g/dL (11.2-15.7); MCH 24.7 pg (27.0-33.0); MCHC 30.3 % (32.0-36.0); MCV 81.5 fL (80-95); MPV 10.3 fL (8.0-11.0); Platelet Count 250 10^3/uL (130-400); RBC 4.21 10^6/uL (3.93-5.22); RDW 14.9 % (11.7-14.6); RDW-SD 44.2 fL; WBC 5.06 10^3/uL (4.4-10.8)
[2021-01-14 17:49] LABS: ALT 20 U/L (14-59); AST 23 U/L (15-37); Albumin 3.3 g/dL (3.4-5.0); Alkaline Phosphatase 70 U/L (46-116); Anion Gap 10.1 mmol/L (3-11); BUN 12 mg/dL (7-18); Bilirubin, Total 0.5 mg/dL (0.2-1.0); CO2 24.9 mmol/L (21.0-32.0); CREATININE 0.9 mg/dL (0.55-1.02); Calcium 8.7 mg/dL (8.5-10.1); Chloride 108 mmol/L (98-107); Glucose 78 mg/dL (74-106); Potassium 4.1 mmol/L (3.5-5.1); Sodium 143 mmol/L (136-145); Total Protein 6.6 g/dL (6.4-8.2)
[2021-01-14 17:51] LABS: INR 1.1 (0.9-1.1); Prothrombin Time 11.1 sec (9.3-11.0)
[2021-01-16 10:59] LABS: AFP Tumor Marker 4.4 ng/mL (<8.1)
== END 2021-01-14 17:15 | disposition home or self-care (01) ==
LOC: LBN 17:14
PROVIDERS: PCP Family Medicine; Visit Provider Internal Medicine
DX: K70.31 Alcoholic cirrhosis of liver with ascites (principal)
CPT/HCPCS: 80053; 85027; 82105; 85610

== ENCOUNTER 2021-08-20 15:31 | Outpatient (REF) | payer BC, SELFPAY ==
[2021-08-20 20:54] LABS: Abs Immature Grans 0.04 10^3/uL (0.0-0.06); Absolute Basophil Count 0.07 10^3/uL (0.0-0.2); Absolute Eosinophil Count 0.15 10^3/uL (0.0-0.7); Absolute Lymphocyte Count 2.13 10^3/uL (1.2-3.4); Absolute Monocyte Count 0.85 10^3/uL (0.1-0.8); Absolute Neutrophil Count 6.65 10^3/uL (1.2-6.7); Basophils % 0.7; Eosinophils % 1.5; HCT 45.7 % (36.0-46.0); HGB 14.7 g/dL (11.2-15.7); Immature Grans % 0.4; Lymphocytes % 21.5; MCH 27.8 pg (27.0-33.0); MCHC 32.2 % (32.0-36.0); MCV 86.6 fL (80-95); MPV 10.2 fL (8.0-11.0); Monocytes % 8.6; Neutrophils % 67.3; Nucleated RBC 0 %; Platelet Count 292 10^3/uL (130-400); RBC 5.28 10^6/uL (3.93-5.22); RDW 13.6 % (11.7-14.6); RDW-SD 43.8 fL; WBC 9.89 10^3/uL (4.4-10.8)
[2021-08-20 20:59] LABS: Prothrombin Time 10.4 sec (9.3-11.0)
[2021-08-20 21:02] LABS: ALT 29 U/L (14-59); AST 24 U/L (15-37); Albumin 4.1 g/dL (3.4-5.0); Alkaline Phosphatase 59 U/L (46-116); Anion Gap 6.6 mmol/L (3-11); BUN 12 mg/dL (7-18); Bilirubin, Total 0.4 mg/dL (0.2-1.0); CO2 29.4 mmol/L (21.0-32.0); CREATININE 0.9 mg/dL (0.55-1.02); Calcium 9.4 mg/dL (8.5-10.1); Chloride 103 mmol/L (98-107); Glucose 92 mg/dL (74-106); Potassium 4.1 mmol/L (3.5-5.1); Sodium 139 mmol/L (136-145); Total Protein 7.7 g/dL (6.4-8.2)
[2021-08-24 09:20] LABS: AFP Tumor Marker 6.1 ng/mL (<8.1)
== END 2021-08-20 15:32 | disposition home or self-care (01) ==
LOC: LBN 15:31
PROVIDERS: PCP Family Medicine; Visit Provider Internal Medicine
DX: K70.31 Alcoholic cirrhosis of liver with ascites (principal)
CPT/HCPCS: 80053; 82105; 85025; 85610

== ENCOUNTER 2021-09-22 10:10 | Outpatient (REF) | payer BC, SELFPAY ==
[2021-09-22 15:42] LABS: HCT 46.5 % (36.0-46.0); HGB 15.3 g/dL (11.2-15.7); MCH 28.2 pg (27.0-33.0); MCHC 32.9 % (32.0-36.0); MCV 85.6 fL (80-95); Platelet Count 289 10^3/uL (130-400); RBC 5.43 10^6/uL (3.93-5.22); RDW 12.7 % (11.7-14.6); RDW-SD 39.6 fL; WBC 9.03 10^3/uL (4.4-10.8)
== END 2021-09-22 10:11 | disposition home or self-care (01) ==
LOC: NCHCN 10:10
PROVIDERS: PCP Family Medicine; Visit Provider Registered Nurse
DX: D64.9 Anemia, unspecified (principal)
CPT/HCPCS: 85027

== ENCOUNTER 2021-11-18 18:54 | Outpatient (REF) | payer BC, SELFPAY ==
[2021-11-18 19:24] LABS: TSH (W/Ref FT4) 1.73 uIU/mL (0.36-3.74)
== END 2021-11-18 18:55 | disposition home or self-care (01) ==
LOC: NCHCN 18:54
PROVIDERS: PCP Family Medicine; Visit Provider Registered Nurse
DX: D64.9 Anemia, unspecified (principal); Z87.19 Personal history of other diseases of the digestive system
CPT/HCPCS: 84443

== ENCOUNTER 2022-01-20 15:46 | Outpatient (REF) | payer BC, SELFPAY ==
[2022-01-20 16:35] LABS: Abs Immature Grans 0.02 10^3/uL (0.0-0.06); Absolute Basophil Count 0.06 10^3/uL (0.0-0.2); Absolute Eosinophil Count 0.18 10^3/uL (0.0-0.7); Absolute Lymphocyte Count 1.73 10^3/uL (1.2-3.4); Absolute Monocyte Count 0.58 10^3/uL (0.1-0.8); Absolute Neutrophil Count 4.51 10^3/uL (1.2-6.7); Basophils % 0.8; Eosinophils % 2.5; HCT 36.1 % (36.0-46.0); HGB 11.1 g/dL (11.2-15.7); Immature Grans % 0.3; Lymphocytes % 24.4; MCH 23.7 pg (27.0-33.0); MCHC 30.7 % (32.0-36.0); MCV 77 fL (80-95); MPV 10.6 fL (8.0-11.0); Monocytes % 8.2; Neutrophils % 63.8; Platelet Count 343 10^3/uL (130-400); RBC 4.68 10^6/uL (3.93-5.22); RDW 12.7 % (11.7-14.6); WBC 7.08 10^3/uL (4.4-10.8)
[2022-01-20 16:37] LABS: Prothrombin Time 9.9 sec (9.3-11.0)
[2022-01-20 16:46] LABS: ALT 29 U/L (14-59); AST 26 U/L (15-37); Albumin 3.9 g/dL (3.4-5.0); Alkaline Phosphatase 57 U/L (46-116); Anion Gap 8.8 mmol/L (3-11); BUN 13 mg/dL (7-18); Bilirubin, Total 0.5 mg/dL (0.2-1.0); CO2 26.2 mmol/L (21.0-32.0); Calcium 8.6 mg/dL (8.5-10.1); Chloride 104 mmol/L (98-107); Glucose 109 mg/dL (74-106); Sodium 139 mmol/L (136-145); Total Protein 7.3 g/dL (6.4-8.2)
== END 2022-01-20 15:47 | disposition home or self-care (01) ==
LOC: NCHCN 15:46
PROVIDERS: PCP Family Medicine; Referring Provider Registered Nurse; Visit Provider Internal Medicine
DX: K70.31 Alcoholic cirrhosis of liver with ascites (principal)
CPT/HCPCS: 80053; 85025; 85610

== ENCOUNTER 2022-04-22 08:21 | Outpatient (REF) | payer BC, SELFPAY ==
--- OUTSIDE RECORDS SUMMARY | 2022-04-22 08:31 | XMS_ITS | Encounter Summary ---
:1980 Author Organization [facility] Address [address] [place] [address] Care Team Providers Name Role Phone Marah Khalil NEHEMIAH Primary Care Provider Reason for Visit Reason Comments Labs Only Encounter Details Date Type Department Care Team Description 05/30/2012 Procedure visit [facility] Unknown, Prov MD gilmar Microprolactinoma ([facility]); Endocrinology - Phlebotomy, [facility] Endo Hyperprolactinemia ([facility]) [address] [place] [address] Social History Tobacco Use Types Packs/Day Years Used Date Never Smoker Alcohol Use Standard Drinks/Week Comments No 0 (1 standard drink = 0.6 oz pure alcoho l) Sex Assigned at Date Recorded Not on file documented as of this encounter Plan of Treatment Not on filedocumented as of this encounter Procedures Procedure Name Priority Date/Time Associated Diagnosis Comme nts PROLACTIN Routine 05/30/2012 11:52 Microprolactinoma Result s for this EDT ([facility]) procedure are in Hyperprolactinemia the resul ts ([facility]) section. 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
--- OUTSIDE RECORDS SUMMARY | 2022-04-22 08:31 | XMS_ITS | Encounter Summary ---
:1980 Author Organization [facility] Address [address] [place] [address] Care Team Providers Name Role Phone None, Provider Primary Care Provider Unavailable Reason for Visit Reason Comments Pituitary Abnormality Encounter Details Date Type Department Care Team Description 01/31/2017 Office Visit [facility] Bridgett Saundersrol actinoma Endocrinology - Felix Hernandez, ([facility]) (Primary Dx) [address] [phone] [place] [phone] Social History Tobacco Use Types Packs/Day Years Used Date Never Smoker Smokeless Tobacco: Never Used Alcohol Use Standard Drinks/Week Comments No 0 (1 standard drink = 0.6 oz pure alcoho l) Sex Assigned at Date Recorded Not on file documented as of this encounter Last Filed Vital Signs Vital Sign Reading Time Taken Comments Blood Pressure 120/64 01/31/201733 EDT Pulse 97 01/31/2017 0733 EDT Temperature - - Respiratory Rate - - Oxygen Saturation - - Inhaled Oxygen Concentration - - Weight 73 kg (161 lb) 01/31/2017 0733 EDT Height 170.2 cm (5' 7.01) 01/31/2017 0733 EDT Body Mass Index 25.21 01/31/2017 0733 EDT documented in this encounter Functional Status Functional Status Response Date of Assessment Because of a physical, mental, or emotional condition, No 01/31/2017 does this person have difficulty doing errands alone such as visiting a doctor's office or shopping? Cognitive Status Response Date of Assessment Because of a physical, mental, or emotional condition, No 01/31/2017 does this person have serious difficulty concentrating, remembering, or making decisions? documented as of this encounter Patient Instructions Patient InstructionsGiFelix mendiola DO - 01/31/2017 8:[address] Saunders will inform you of your lab results by phone or mail within 2 weeks. If you do not receive your test results after two weeks please contact the office. 2. Call with questions, concerns or change in symptoms. 3. Follow-up in one year documented in this encounter Progress Notes Felix Saunders DO - 01/31/2017 0800 EDT SUBJECTIVE:?? 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 She was first diagnosed in June of 2005 via MRI and presentation of galactorrhea and oligomenorrhea.?? She had been on Dostinex but was changed to bromocriptine as she was attempting to become .?? Please see that note for full details. She had successful in vitro fertilization. Her baby is now 9 months old. She has been off bromocriptine since the second trimester of her . Blood work drawn on August 2016 showed a mildly elevated prolactin at 26.5. Recheck a prolactin on September at [facility] showed a prolactin of 10.5. She is planning on startingfertility treatments soon. During her last her accountant helper Drawn her bromocriptine for the first trimester. Although this point her prolactin has normalized. Upon interview to day she denies galactorrhea, change in libido or change in vision. Her menstrual cycle has been regular in frequency of somewhat shorter in duration. PAST MEDICAL HISTORY:?? Reviewed as documented in electronic medical record. ?? MEDICATIONS:?? Reviewed as documented in electronic medical record. ?? ALLERGIES:?? Reviewed as documented in electronic medical record. ?? OBJECTIVE:?? BP 120/64 Pulse 97 Ht 170.2 cm (67.01) Wt 73 kg (161 lb) LMP 01/29/2017 BMI 25.21 kg/m2.?? In general, patient is a pleasant 36-year-old female in no acute distress.?? HEENT:?? Eyes:?? There is no lid lag or periorbital edema noted.?? Gross visual field testing was normal.?? Neck is supple without adenopathy.?? Thyroid is normal in size without tenderness, nodules to palpation.?? Respiratory:?? Lungs clear to auscultation bilaterally.?? Cardiovascular is regular without murmurs, rubs, or gallops.?? GI:?? Abdomen has good bowel sounds in all 4 quadrants.?? Extremities:?? No cl ubbing, cyanosis or edema.?? Strength is 5/5 and equal bilaterally without proximal muscle weakness.?? Neuro:?? DTRs +2/4 and equal bilaterally in all 4 extremities, without a resting tremor.?? Psych:?? Patient is A and O x3.?? Speech and thoughts are appropriate.?? Denies depression, anxiety. ?? ASSESSMENT:?? 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 We will recheck prolactin level today to make sure things are stable. She should call questions or concerns. Repeat MRI in 2012 showed tumor was smaller in size. She should follow-up with me in 1 year ?? PLAN: 1. Currently off bromocriptine with normal prolactin levels as of September 2016 2. Will repeat prolactin levels today 3. 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
--- OUTSIDE RECORDS SUMMARY | 2022-04-22 08:31 | XMS_ITS | Encounter Summary ---
:1980 Author Organization [facility] Address [address] [place] [address] Care Team Providers Name Role Phone None, Provider Primary Care Provider Unavailable Encounter Details Date Type Department Care Team Description 02/09/2018 Procedure visit [facility] Unknown, Prov MD gilmar Microprolactinoma Endocrinology - Phlebotomy, [facility] Erick Deluca ([facility]) (Primary Dx) [address] [place] [address] Social History Tobacco Use Types Packs/Day Years Used Date Never Smoker Smokeless Tobacco: Never Used Alcohol Use Standard Drinks/Week Comments No 0 (1 standard drink = 0.6 oz pure alcoho l) Sex Assigned at Date Recorded Not on file documented as of this encounter Functional Status Functional Status Response Date of Assessment Because of a physical, mental, or emotional condition, No 02/09/2018 does this person have difficulty doing errands alone such as visiting a doctor's office or shopping? Cognitive Status Response Date of Assessment Because of a physical, mental, or emotional condition, No 02/09/2018 does this person have serious difficulty concentrating, remembering, or making decisions? documented as of this encounter Discharge Diagnoses Diagnosis D35.2 Benign neoplasm of pituitary gland -D35.2[ICD-10-CM] documented in this encounter Discharge Disposition Disposition Code Departure Means Destination Auto Discharge documented in this encounter Progress Notes Candelaria Siu - 02/09/2018 1500 EDT Venipuncture preformed for Prolactin Per orders of Gilbert, M Diagnosis of D35.2 227.3 I was supervised by Meng Alex who was present and immediately available in the office suite. Candelaria Siu 02/09/2018 15:12 documented in this encounter Plan of Treatment Not on filedocumented as of this encounter Procedures Procedure Name Priority Date/Time Associated Diagnosis Comme nts PROLACTIN Routine 02/09/2018 15:12 Microprolactinoma Result s for this EDT ([facility]) procedure are i n the results section. documented in this encounter Results PROLACTIN (02/09/2018 15:12 EDT) Pathologist Sig nature Prolactin 8.7 ng/ml [facility] Comment: LABORATORY SERVICES Non-: 2.8-29.2 : 9.7-208.5 Post Menopausal: 1.8-20.3 Specimen Blood specimen (specimen) - Blood Performing Organization Address City/State/ZIP Code Phon e Number [facility] [address] [place] [address] SERVICES documented in this encounter Visit Diagnoses Diagnosis Microprolactinoma (HCC-CMS) ([facility]) - Prim fatuma Benign neoplasm of pituitary gland and c raniopharyngeal duct (pouch) documented in this encounter Care Teams Business Continuity Coordinator Relationship Specialty Start Date End Date None, Provider PCP - General 09/10/16 documented as of this encounter
--- OUTSIDE RECORDS SUMMARY | 2022-04-22 08:31 | XMS_ITS | Encounter Summary ---
:1980 Author Organization [facility] Address [address] [place] [address] Care Team Providers Name Role Phone Karl Saab MD Primary Care Provider Encounter Details Date Type Department Care Team Description 05/14/2016 Hospital Encounter [facility] - Unknown, [place] [facility] [phone] [place] [address] (Work) [place] [address] Social History Tobacco Use Types Packs/Day Years Used Date Never Smoker Smokeless Tobacco: Never Used Alcohol Use Standard Drinks/Week Comments No 0 (1 standard drink = 0.6 oz pure alcoho l) Sex Assigned at Date Recorded Not on file documented as of this encounter Functional Status Functional Status Response Date of Assessment Because of a physical, mental, or emotional condition, No 09/15/2015 does this person have difficulty doing errands alone such as visiting a doctor's office or shopping? Cognitive Status Response Date of Assessment Because of a physical, mental, or emotional condition, No 09/15/2015 does this person have serious difficulty concentrating, remembering, or making decisions? documented as of this encounter Medications at Time of Discharge Medication Sig Dispensed Refills Start Date End Date bromocriptine (PARLODEL) take 2 tablets by 180 Tab 3 /09/2014 2.5 mg tablet mouth at bedtime folic acid (FOLVITE) 1 mg Take 1 mg by mouth 0 tablet at bedtime. letrozole (FEMARA) 2.5 mg Take one tablet for 5 Tab 0 0 12/03/2013 tablet cycle days 5 through 9.. documented as of this encounter Discharge Disposition Disposition Code Departure Means Destination Home or Self Assisted documented in this encounter Plan of Treatment Not on filedocumented as of this encounter Visit Diagnoses Not on filedocumented in this encounter Care Teams Tinning Machine Set Up Operator Relationship Specialty Start Date End Date Karl Saab MD PCP - General 09/12/15 [address] [place] [address] documented as of this encounter
--- OUTSIDE RECORDS SUMMARY | 2022-04-22 08:31 | XMS_ITS | Encounter Summary ---
:1980 Author Organization [facility] Address [address] [place] [address] Care Team Providers Name Role Phone Karl Saab MD Primary Care Provider Reason for Visit Reason Onset Date Comments Discuss Test Results 07/15/201607/06 Encounter Details Date Type Department Care Team Description 07/15/2016 Telephone [facility] Felix Saunders ss Test Results Endocrinology - Namita Hernandez DO (07/06) [address] [place], [place] [address] [place] [address] [place] [address] Social History Tobacco Use Types Packs/Day Years [...] making decisions? documented as of this encounter Miscellaneous Notes Telephone Encounter - Susi Lucero RN - 07/16/2016 3688 EST Left message for Violet to please call office. Violet called back. I relayed Dr. Sosa review of her recent lab and his recommendation to remain off the medication and to recheck labs in 6-8 weeks. Requisitions mailed to her as requested. Sheverbalized understanding and had no further questions./ROSARIO elephone Encounter - Felix Saunders DO - 07/16/2016 0808 EST Please contact patient via phone. I reviewed her most recent laboratory evaluation conducted at the [facility] on 07/06/2016. Her prolactin levelis normal at 8.1. There does not appear to be a need to restart medication at this time. Would like to recheck her prolactin level in 6-8 weeks. Please send labs of the patient's home so she can obtainlabs at her local hospital elephone Encounter - Sole Paul - 07/15/2016 0844 EST Pt calling as she had lab work done 07/06 and is looking for results. Advised that nothing had been scanned into system yet. Pt is going to contact [facility] and have them sent again documented in this encounter Plan of Treatment Not on filedocumented as of this encounter Visit Diagnoses Not on filedocumented in this encounter Care Teams Education General Manager Relationship Specialty Start Date End Date Karl Saab MD PCP - General 09/12/15 09/09/16 [address] [place] [address] documented as of this encounter
--- OUTSIDE RECORDS SUMMARY | 2022-04-22 08:31 | XMS_ITS | Encounter Summary ---
:1980 Author Organization [facility] Address [address] [place] [address] Care Team Providers Name Role Phone Karl Saab MD Primary Care Provider None, Provider Primary Care Provider Unavailable Encounter Details Date Type Department Care Team Description 05/15/2016 Historical Results [facility] - Meng Kim MD Only [facility] [place] [facility] [address] [facility] [address] [facility] [address] [place] [address] [place] [phone] [address] Social History Tobacco Use Types Packs/Day Years [...] making decisions? documented as of this encounter Plan of Treatment Not on filedocumented as of this encounter Procedures Procedure Name Priority Date/Time Associated Diagnosis Comme nts SURGICAL PATHOLOGY Routine 05/15/2016 11:15 Resul ts for this EDT procedure are i n the results section. documented in this encounter Results SURGICAL PATHOLOGY (05/15/2016 11:15 EDT) Specimen Narrative [facility] - 016 17:23 EDT Name: VIOLET WILEY ? : [birth year] ?Age/Sex: 38/F ?Unit#: [id number] ? Loc: OBS ? Status: DIS IN ? Reg Date: 05/14/16 ? Pt.Phone Number : ? Specimen: [id number] ? LISANDRO BLANCO: LAWANDA ?Spec Date:05/15/16 ? Physician Copies: ?Maria Eugenia Kim MD ? Tissues: A ?? Placenta, third trimester ?Leidy Fitzgerald ? CPT: 31981 ?? Units: ??1 ?FINAL DIAGNOSIS ? PLACENTA (494 grams), MEMBRANES, AND UMBILICAL CORD,VAGINAL DELIVERY AT 39WKS; ? -Trivascular umbilical cord ?-Velementous insertion in placental membranes ?-No evident thrombosis or hemorrhage ? -Unremarkable chorion, amnion and decidual vessels ? -Villous maturity consistent with age ? Note 1: 494 grams falls between t he 25th and 50th percentiles for weight at 39 ? week gestation. The to plac ental ratio is 6.0 (expected 6.7). ? Note 2: ??The length of submitted umbilical cord is 31 cm. ??The average ? umbilical cord length at 39 weeks is 44-70 cm. ? Note 3: Velementous insertion of umbilical cord is present. Velementous cord ? insertion is found in about 1% of placentas, ??It has associated morbidity as ? the unsupported vessels coursing through the membranes may rupture at delivery ? resulting in hemorrhage. ?? One theory of pathogenesis of velementous cord ? insertion is that normally during early the placenta changes ? location through marginal atrophy on one side and growth and expansion on the ? other. In abnormal cord insertion s, atrophy near the cord and expansion of the ? opposite side results in the cord being left behind in the membranes. ? GROSS DESCRIPTION ? The specimen is received in forma carla and consists of placenta with attached ? membrane and cord. The cord inser tion is slightly disrupted, appears to be a ? velamentous inserting at least 6 cm from the placenta margin. ??The vessels are ? seen coursing through the membran es and inserting into the surface of the ? placental disc.The umbilical cord measures 31 cm in length and 1.0 cm in ? diameter. ??The membranes are par tially removed but appear to be complete. ? surface is translucent and tannish-brown in color. ??The vessels are ? dilated and congested but do not appear to have thromboses. ??The placenta ? measures 14.0 x 13.5 x 2.5 cm and weighs 494 grams. ??The maternal surface is ? lobulated and complete. ??Serial sections reveal soft, red spongy parenchyma. ? There is a central firm white are a measuring 3.0 cm Cleaning Specialist sections are Patient: VIOLET WILEY ? #[id number] ? (Continued) Specimen: [id number] ? Rec eived: 05/17/16 ?(Continued) ? GROSS DESCRIPTION ?(Continued) ? submitted according to ramiro duong. ? 1: ?Membranes 2: ?Umbilical cord 3,4,5: ?Placental parenchyma, ? 6 7: ?Infarction. ??SS ?? PREOP DX/CLINICAL HISTORY ?TERM , IVF ORDER QUERIES: Baby wgt in grams: 2980 ? Gestation al Age: 39WK=4D ?? 1 min score: 8 ?5 min s core: 9 ?? Signed ____(signature on file)____ Nehal Barrientos M.D. 05/21/16 ? By the signature above, the attending ph ysician certifies that he/she has personally conducted a gross and/or microscopic exa mination of the described specimens and rendered or confirmed the above diagnosi s. Test [facility], [address] [place] [id number] Doctor Podiatric Medicine: Sheron Pizarro MD PHD Performing Organization Address City/State/ZIP Code Phon e Number [facility] [address] [place], [place] [phone] [place] [address] LAB documented in this encounter Visit Diagnoses Not on filedocumented in this encounter Care Teams Die Technician Relationship Specialty Start Date End Date Karl Saab MD PCP - General 09/12/15 09/09/16 [address] [place], [place] [address] None, Provider PCP - General 09/10/16 documented as of this encounter
--- OUTSIDE RECORDS SUMMARY | 2022-04-22 08:31 | XMS_ITS | Encounter Summary ---
:1980 Author Organization [facility] Address [address] [place] [address] Care Team Providers Name Role Phone Price Khalil NEHEMIAH Primary Care Provider Encounter Details Date Type Department Care Team Description 07/04/2013 Results Only [facility] Lizzy Khalil FNP Laboratory Services - [address] [address] [place] [address] [phone] Social History Tobacco Use Types Packs/Day Years Used Date Never Smoker Alcohol Use Standard Drinks/Week Comments No 0 (1 standard drink = 0.6 oz pure alcoho l) Sex Assigned at Date Recorded Not on file documented as of this encounter Plan of Treatment Not on filedocumented as of this encounter Procedures Procedure Name Priority Date/Time Associated Diagnosis Comme nts PAP TEST- RESULT Routine 07/04/2013 0:00 EST Resu lts for this ONLY procedure are i n the results section. documented in this encounter Results PAP TEST- RESULT ONLY (07/04/2013 0:00 EST) Pathology Report: CYTOPATHOLOGY REPORT [facility] Reports generated via electronic interface contain ajith ginal data; however they are lacking the format of the original re port. Caution should be taken when reading/interpreting unfo rmatted reports. Name: ? MERVIN WILEY ? Accession #: ? [id number] ? : ? 1980 (Age: 32) ??F ?Collect Da te: ? 07/04/2013 ? Location: ? [facility] ? Receive Date: ? 013 ? Provider: PRICE KHALIL STRETCHER HELPER Copy to: ? Final Report SPECIMEN ADEQUACY ? Satisfactory for Evaluation - transformation zone component present GENERAL CATEGORIZATION ? Epithelial Cell Abnormality INTERPRETATION ? Squamous Cell Abnormality - Atypical squamous c ells, undetermined significance (ASC-US). EDUCATIONAL NOTES/RECOMMENDATIONS ? [facility] recommends juan johnson ASCCP's 2012 Updated Consensus Guidelines for the Management of Abnormal Cervical Cancer Screening T ests and Cancer Precursors (JLGTD, 2013; 17(5):S1-S27). ??Conse nsus guidelines are available online at www.asccp.org. Last Menstrual Period: 06/25/2013 Other: Additional clinical information: on bromocripti ne for fertility Specimen/Source: ??Pap Test, Endocervix, ThinPrep Imag ing System with manual evaluation Document reviewed and electronically signed by: ? SERGIO WARE MD ? Report ??Date: 07/12/2013 08:13 HPV with Pap Test ? Date Ordered: ? 07/11/2013 ? Status: ?? Signed Out ?Date Complete: ? 07/16/2013 ? By: ??S ystem Interface ? Date Reported: ? 07/16/2013 ? Interpretation RESULT: Negative for HPV. No E6 or E7 mRNA is detected from HPV types 16,18,31,3 3,35, 39,45,51,52,56,58,59,66, and 68 by extension professor media wayne amplification. Comments Document reviewed and electronically signed by: ? System Interface ? Report date: 07/16/2013 By the signature above, the attending physician certif ies that he/she has personally conducted a gross and/or microscopic examin ation of the described specimens and rendered or confirmed the above diagnosi s. End of Report Specimen Performing Organization Address City/State/ZIP Code Phon e Number [facility] [address] [place] [address] SERVICES [facility] [address] [place] [address] documented in this encounter Visit Diagnoses Not on filedocumented in this encounter Care Teams Commercial Specialist Relationship Specialty Start Date End Date Price Khalil FNP PCP - General 12/18/08 [address] [place] [phone] documented as of this encounter
--- OUTSIDE RECORDS SUMMARY | 2022-04-22 08:31 | XMS_ITS | Encounter Summary ---
:[address] [facility] Address [address] [place] [address] Care Team Providers Name Role Phone Marah Khalil Primary Care Provider Encounter Details Date Type Department Care Team Description 07/04/2013 Hospital Encounter [facility]- Twila Unknown, Provider, [facility] [address] [facility] [phone] [place] [address] (Work) [phone] Social History Tobacco Use Types Packs/Day Years Used Date Never Smoker Alcohol Use Standard Drinks/Week Comments No 0 (1 standard drink = 0.6 oz pure alcoho l) Sex Assigned at Date Recorded Not on file documented as of this encounter Medications at Time of Discharge Medication Sig Dispensed Refills Start Date End Date folic acid (FOLVITE) 1 mg Take 1 mg by mouth 0 tablet at bedtime. bromocriptine (PARLODEL) take 2 tablets by 180 Tab 3 07/0207/19/2013 2.5 mg tablet mouth at bedtime documented as of this encounter Discharge Disposition Disposition Code Departure Means Destination Home or Self Correction documented in this encounter Plan of Treatment Not on filedocumented as of this encounter Visit Diagnoses Not on filedocumented in this encounter Care Teams Crm Marketing Manager Relationship Specialty Start Date End Date Marah Khalil FNP PCP - General 12/18/08 2 [address] [facility] [place] [phone] documented as of this encounter
--- OUTSIDE RECORDS SUMMARY | 2022-04-22 08:31 | XMS_ITS | Encounter Summary ---
:1980 Author Organization [facility] Address [address] [place] [address] Care Team Providers Name Role Phone Marah Khalil Primary Care Provider Encounter Details Date Type Department Care Team Description 07/20/2013 Hospital Encounter [facility] - Nathan Saunders, DO [address] [place] [address] (Wo rk) Social History Tobacco Use Types Packs/Day Years Used Date Never Smoker Alcohol Use Standard Drinks/Week Comments No 0 (1 standard drink = 0.6 oz pure alcoho l) Sex Assigned at Date Recorded Not on file documented as of this encounter Discharge Diagnoses Diagnosis 784.0 HEADACHE[ICD-9-CM] 368.9 VISUAL DISTURBANCE NOS[ICD-9-CM] documented in this encounter Medications at Time of Discharge Medication Sig Dispensed Refills Start Date End Date folic acid (FOLVITE) 1 mg Take 1 mg by mouth 0 tablet at bedtime. bromocriptine (PARLODEL) take 2 tablets by 180 Tab 3 07/0106/26/2014 2.5 mg tablet mouth at bedtime documented as of this encounter Discharge Disposition Disposition Code Departure Means Destination Auto Discharge Home documented in this encounter Plan of Treatment Not on filedocumented as of this encounter Visit Diagnoses Not on filedocumented in this encounter Care Teams Biophysics Scientist Relationship Specialty Start Date End Date Marah Khalil FNP PCP - General 12/18/08 09/11/15 4 [place] [phone] documented as of this encounter
--- OUTSIDE RECORDS SUMMARY | 2022-04-22 08:31 | XMS_ITS | Encounter Summary ---
:1980 Author Organization [facility] Address [address] [place] [address] Care Team Providers Name Role Phone Marah Khalil NEHEMIAH Primary Care Provider Reason for Visit Reason Comments Follow-up review infertility testing Encounter Details Date Type Department Care Team Description 09/18/2013 Office Visit [facility] Hyperprolactin emia ([facility]) (Primary Dx); Reproductive Medicine MD Krys Microprolactinoma ([facility]); [facility] [address] [place] [address] Female infertility of other specified origin - [facility] [address] [place] [address] [phone] Social History Tobacco Use Types Packs/Day Years Used Date Never Smoker Smokeless Tobacco: Never Used Alcohol Use Standard Drinks/Week Comments No 0 (1 standard drink = 0.6 oz pure alcoho l) Sex Assigned at Date Recorded Not on file documented as of this encounter Discharge Diagnoses Diagnosis 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 documented in this encounter Discharge Disposition Disposition Code Departure Means Destination Auto Discharge documented in this encounter Progress Notes [facility] [place] MD - 09/18/[address] Negrete and I met with Sushma today. Her HyCoSy is normal. Her ovarian reserve good as measured by [facility] and antral follicle counts. She has regular ovulatory cycles. Recall that this couple has 2 early miscarriages together now a period of unexplained infertility. Also, recall that she has hyperprola ctinemia, a microadenoma and has regular cycles on Dostinex. We had an extensive discussion today. My preferential treatment would be letrozole with intrauterineinsemination. He simply will not produce the semen analysis at this point in time. What we have arranged as a compromise is to do 2 cycles of letrozole with ovulation predictor kit and intercourse withsex the night of the kit turning positive and then the night after. The first cycle, she will call us and we will have her come in for a postcoital test the morning after the second episode of intercourse. This will ensure us that at least he has some sperm. We spent 30 minutes with her all in discussion, gave her written instructions. We e-scripted the letrozole in. She will check a test before she starts the medication. Thirty minutes, all discussion. documented in this encounter Plan of Treatment Not on filedocumented as of this encounter Visit Diagnoses Diagnosis Hyperprolactinemia (HCC-CMS) (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
--- OUTSIDE RECORDS SUMMARY | 2022-04-22 08:31 | XMS_ITS | Encounter Summary ---
:1980 Author Organization [facility] Address [address] [place] [address] Care Team Providers Name Role Phone Marah Khalil NEHEMIAH Primary Care Provider Reason for Visit Reason Onset Date Comments Infertility 11/01/2013 Encounter Details Date Type Department Care Team Description 11/01/2013 Telephone [facility] Reproductive Medicine Carina Kimbrough RN [facility] [address] [place], [place] [phone] Social History Tobacco Use Types Packs/Day Years Used Date Never Smoker Smokeless Tobacco: Never Used Alcohol Use Standard Drinks/Week Comments No 0 (1 standard drink = 0.6 oz pure alcoho l) Sex Assigned at Date Recorded Not on file documented as of this encounter Ordered Prescriptions Prescription Sig Dispensed Refills Start Date End Date letrozole (FEMARA) 2.5 mg Take one tablet for 5 Tab 0 0 11/01/2013 12/03/2013 tablet cycle days 5 through 9.. documented in this encounter Miscellaneous Notes Telephone Encounter - Candy Kimbrough RN - 11/01/2013 1537 EDT Of note, reports positive OPK. elephone Encounter - Candy Kimbrough RN - 11/01/2013 1536 EDT Spoke to pt. Cycle lasted 28 days. She will take home UPT on day 5 prior to starting letrozole. documented in this encounter Plan of Treatment Not on filedocumented as of this encounter Visit Diagnoses Not on filedocumented in this encounter Discontinued Medications Medication Sig Discontinue Reason Start Date End Date letrozole (FEMARA) 2.5 Take cycle day 5 Reorder 09/18/2013 0 11/01/2013 mg tablet through 9.. documented as of this encounter Care Teams Roping Tender Relationship Specialty Start Date End Date Marah Khalil FNP PCP - General 12/18/08 09/11/15 [address] [place] [phone] documented as of this encounter
--- OUTSIDE RECORDS SUMMARY | 2022-04-22 08:31 | XMS_ITS | Encounter Summary ---
:[address] [facility] Address [address] [place] [address] Care Team Providers Name Role Phone Marah Khalil Primary Care Provider Karl Saab MD Primary Care Provider None, Provider Primary Care Provider Unavailable Reason for Visit Reason Comments Other Encounter Details Date Type Department Care Team Description 07/19/2013 Refill [facility] Felix Saunders, Other Endocrinology - [facility] DO [address] [place], [place] [address] [address] [place] [address] (Wo rk) Social History Tobacco [...] 2.5 mg tablet mouth at bedtime documented in this encounter Plan of Treatment Not on filedocumented as of this encounter Visit Diagnoses Not on filedocumented in this encounter Discontinued Medications Medication Sig Discontinue Reason Start Date End Date bromocriptine (PARLODEL) take 2 tablets by Reorder 07/26/2012 07/19/2013 2.5 mg tablet mouth at bedtime documented as of this encounter Care Teams Crusher And Binder Operator Relationship Specialty Start Date End Date Marah Khalil FNP PCP - General 12/18/08 09/11/15 [address] [place] [phone] Karl Saab MD PCP - General 09/12/15 2 [address] [place] [phone] None, Provider PCP - General 09/10/16 documented as of this encounter
--- OUTSIDE RECORDS SUMMARY | 2022-04-22 08:31 | XMS_ITS | Encounter Summary ---
:1980 Author Organization [facility] Address [address] [place] [address] Care Team Providers Name Role Phone Marah Khalil NEHEMIAH Primary Care Provider Karl Saab MD Primary Care Provider None, Provider Primary Care Provider Unavailable Encounter Details Date Type Department Care Team Description 11/29/2011 Historical Results Only [facility] - Addis Mccarthy, [facility] [place] [facility] [address] [place] [address] Social History Tobacco Use Types Packs/Day Years Used Date Never Smoker Alcohol Use Standard Drinks/Week Comments No 0 (1 standard drink = 0.6 oz pure alcoho l) Sex Assigned at Date Recorded Not on file documented as of this encounter Plan of Treatment Not on filedocumented as of this encounter Procedures Procedure Name Priority Date/Time Associated Diagnosis Comme nts PAP TEST Routine 11/29/2011 Results for thi s procedure are in the resu lts section. documented in this encounter Results PAP TEST (11/29/2011) Specimen Narrative [facility] - 012 15:35 EDT Name: VIOLET WILEY ? : [birth year] ?Age/Sex: 38/F ?Unit#: [id number] ? Loc: AGO ? Status: REG POV ?? Reg Date: 11/29/11 ? Pt.Phone Number : ? Specimen: [id number] ?STA TUS: SOUT ?Spec Date:11/29/11 ? Physician Copies: ?Marshal Mccarthy MD ? Tissues: ? Cervical/Endo Pap ?Marah Khalil CPT: 60019 ?? Units: ??1 ? CYTOLOGY DIAGNOSIS SPECIMEN ADEQUACY: ?Satisfactory for evaluation. Transformation zone component present. GENERAL CATEGORIZATION: ?Negative fo r Intraepithelial Lesion or Malignancy DESCRIPTIVE DIAGNOSIS: ? Negative fo r Intraepithelial Lesion or Malignancy. RECOMMENDATIONS/COMMENTS: ?None. ORDER QUERIES: LMP: 10/02/11 - ?Preg nant? Y Post ? N ??PREVIOUS ATYPICAL: N BCP/HRT? N Rad Rx? N IUD? N ??PAP PLUS HPV? N ??REFLEX TO HR-HPV IF ASCUS ?? REFLEX TO HPV 16/18 IF HPV POS/PAP NEG ?? HPV REGARDLESS?RFLX HPV IF LSIL ?? IF ASCUS DO HPV? Y Signed Lizzy Santiago CT(ASCP) 12/02/11 By the signature above, the attending ph ysician certifies that he/she has personally conducted a gross and/or microscopic exa mination of the described specimens and rendered or confirmed the above diagnosi s. Test Performed by [facility], [address] [place] [id number] Financial Sales Representative: Sheron Pizarro MD PHD Performing Organization Address City/State/ZIP Code Phon e Number [facility] [address] [place] [address] [facility] documented in this encounter Visit Diagnoses Not on filedocumented in this encounter Care Teams Compliance Administrator Relationship Specialty Start Date End Date Marah Khalil FNP PCP - General 12/18/08 2 [address] [place] [phone] Karl Saab MD PCP - General 09/12/15 2 [address] [place], [place] [phone] None, Provider PCP - General 09/10/16 documented as of this encounter
--- OUTSIDE RECORDS SUMMARY | 2022-04-22 08:31 | XMS_ITS | Encounter Summary ---
:1980 Author Organization [facility] Address [address] [place] [address] Care Team Providers Name Role Phone Karl Saab MD Primary Care Provider None, Provider Primary Care Provider Unavailable Encounter Details Date Type Department Care Team Description 07/06/2016 Historical Results [facility] - Nathan Saunders Only [facility] [place] David [address] [place] [address] [address] [place] [address] Social History Tobacco Use Types [...] Date/Time Associated Diagnosis Comme nts PROLACTIN Routine 07/06/2016 10:00 EST Results for this procedure are i n the results section . documented in this encounter Results PROLACTIN (07/06/2016 10:00 EST) Pathologist Sig nature Prolactin 8.1 ng/mL [facility] Comment: [facility]ENTER [facility] Reference Range/Expected Values: Non: ? 2.8 - 29.2 ??ng/mL : ?9.7 - 208.5 ng/mL Postmenopausal: ??1.8 - 20.3 ??ng/mL Specimen Narrative [facility] - 016 11:17 EST Does PT Have a Latex Allergy? NO Performing Organization Address City/State/ZIP Code Phon e Number [facility] [address] [place], [place] [id number] [place] [address] LAB documented in this encounter Visit Diagnoses Not on filedocumented in this encounter Care Teams Food General Manager Relationship Specialty Start Date End Date Karl Saab MD PCP - General 09/12/15 09/09/16 [address] [place], [place] [address] None, Provider PCP - General 09/10/16 documented as of this encounter
--- OUTSIDE RECORDS SUMMARY | 2022-04-22 08:31 | XMS_ITS | Encounter Summary ---
:1980 Author Organization [facility] Address [address] [place] [address] Care Team Providers Name Role Phone Marah Khalil NEHEMIAH Primary Care Provider Karl Saab MD Primary Care Provider None, Provider Primary Care Provider Unavailable Encounter Details Date Type Department Care Team Description 12/31/[address] [facility] - Benjy Holt, [facility] - [facility] [address] [place], [place] [id number] Social History Tobacco Use Types Packs/Day Years Used Date Never Smoker Alcohol Use Standard Drinks/Week Comments No 0 (1 standard drink = 0.6 oz pure alcoho l) Sex Assigned at Date Recorded Not on file documented as of this encounter Plan of Treatment Not on filedocumented as of this encounter Procedures Procedure Name Priority Date/Time Associated Diagnosis Comme nts SURGICAL PATHOLOGY Routine 12/31/2011 Results f or this procedure are i n the results section . PROTEIN S ACTIVITY Routine 12/31/2011 Results f or this procedure are i n the results section . documented in this encounter Results SURGICAL PATHOLOGY (12/31/2011) Specimen Narrative [facility] - 012 13:31 EDT BLOCK RETURNED 01/18/12 Name: VIOLET WILEY ? : [birth year] ?Age/Sex: 38/F ?Unit#: [id number] ? Loc: SDS ? Status: REG SDC ?? Reg Date: 12/31/11 ? Pt.Phone Number : ? Specimen: [id number] ? STA TUS: SOUT ?Spec Date:12/31/11 ? Physician Copies: ?Marshal Mccarthy MD ? Tissues: A ?? Female Reproductive System (PRODUCTS OF CONCEPTION) ? CPT: 18022 ?? Units: ??1 ?FINAL DIAGNOSIS ? Uterine contents, suction curreta ge; ? -Hydropic degeneration of chorion ic villi. ? GROSS DESCRIPTION ? Received in formalin and labeled products of conception is a 80 cc aggregate ? of membranous tissue fragments. ? ?Parts of a placenta and chorionic villi are ? identified but no parts are definetely identified. ??No enlarged villi are ? identified. ??Semiconductor Testing Group Leader sect ions are identified. ??BT ?MICROSCOPIC DESCRIPTION ? A diploid determination by fish a nalysis rules out partial mole. ? Staining of the cytotrophoblast a nd stromal cells by P57 rule-out complete ? mole. ? 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 ?? PREOP DX/CLINICAL HISTORY ?MISSED AB Signed ____(signature on file)____ Oscar Mayer M.D. 01/14/12 ?? By the signature above, the attending ph ysician certifies that he/she has personally conducted a gross and/or microscopic exa mination of the described specimens and rendered or confirmed the above diagnosi s. Test Performed by [facility], [address] [place] [address] Information Security Associate: Sheron Pizarro MD PHD Performing Organization Address [facility]/State/ZIP Code Phon e Number [facility] [address] [place] [address] LAB PROTEIN S ACTIVITY (12/31/2011) Specimen Narrative [facility] - 012 13:32 EDT Name: VIOLET WILEY ? : [birth year] ?Age/Sex: 38/F ?Unit#: [id number] ? Loc: SDS ? Status: REG SDC ?? Reg Date: 12/31/11 ? Pt.Phone Number : ? Specimen: [id number] ?ST ATUS: SOUT ?Spec Date:12/31/11 ? Physician Copies: ?Oscar Holt ? Tissues: ? PATHOLOGY SPECIAL STUDIES (POCFISH ON [id number], BLOCK 2) ? Marah Khalil ?Marshal Mccarthy MD ? CPT: 51835 ?? Units: ??1 ?? PREOP DX/CLINICAL HISTORY ?MISSED ?? PATHOLOGY SPECIAL STUDIES ?RESULT ? Chr omosome ? Result ? --- ? XX ? normal ? 13 ? normal ? 15 ? normal ? 16 ? normal ? 18 ? normal ? 21 ? normal ? 22 ? normal ? INTERPRETATION ?A no rmal signal pattern for chromosomes 13, 15, 16, 18, ?21, 22 and XX was observed. ? Full report in PCI under Reference L ab ? Test performed by [facility], [address], [place], [place] ??[address]. ?? Rn X Ray: Cameron Richmond ?? Christal DUBOIS Signed ____(signature on file)____ Oscar Mayer M.D. 01/14/12 ?? By the signature above, the attending ph ysician certifies that he/she has personally conducted a gross and/or microscopic exa mination of the described specimens and rendered or confirmed the above diagnosi s. Test Performed by [facility], [address] [place] [address] Information Security Associate: Sheron Pizarro MD PHD Performing Organization Address City/State/[facility] Code Phon e Number [facility] [address] [place], [place] [id number] [place] [address] LAB documented in this encounter Visit Diagnoses Not on filedocumented in this encounter Care Teams Biztalk Software Developer Relationship Specialty Start Date End Date Marah Khalil FNP PCP - General 12/18/08 2 [address] [place] [address] Karl Saab MD PCP - General 09/12/15 09/09/16 [address] [place] [address] None, Provider PCP - General 09/10/16 documented as of this encounter
--- OUTSIDE RECORDS SUMMARY | 2022-04-22 08:31 | XMS_ITS | Encounter Summary ---
:1980 Author Organization [facility] Address [address] [place] [address] Care Team Providers Name Role Phone None, Provider Primary Care Provider Unavailable Encounter Details Date Type Department Care Team Description 01/03/2019 Results Only [facility]- Froilan Lucio, PRODUCT DEVELOPMENT [address] [place] [address] (Wo rk) Social History Tobacco Use Types [...] Diagnosis Comme nts PAP TEST- RESULT Routine 01/03/2019 0:00 EDT Resu lts for this ONLY procedure are i n the results section. documented in this encounter Results PAP TEST- RESULT ONLY (01/03/2019 0:00 EDT) Pathology Report: CYTOPATHOLOGY REPORT [facility] Reports generated via electronic interface contain ajith ginal data; SERVICES however they are lacking the format of the original re port. Caution should be taken when reading/interpreting unfo rmatted reports. Name: ? MERVIN WILEY ? Accession #: ? [id number] ? : ? 1980 (Age: 2 0) ??F ?Collect Date: ? 2018 ? Location: ? [facility] ? Receive Date: ? Provider: FROILAN OSEGUERA PRODUCT DEVELOPMENT Copy to: ? Final Report SPECIMEN ADEQUACY ? Satisfactory for Evaluation - transformation zone component present GENERAL CATEGORIZATION ? Negative for Intraepithelial Lesion or Malignan cy ?? Last Menstrual Period: 12/25/18 Previous Gynecologic Pathology: ASC-US: 2013 Infection History: Neg for HPV: 2013 Other: Additional clinical information: Z12.4 Specimen/Source: ??Pap Test, Cervix, ThinPrep Imaging System with manual evaluation Document reviewed and electronically signed by: ? Teresa Blanca, CATIA(ASCP) ? Report ??Date: 01/09/2019 13:56 HPV with Pap Test ? Date Ordered: ? 01/09/2019 ? Status: ?? Signed Out ?Date Complete: ? 01/10/2019 ? By: ??Sy stem Interface ? Date Reported: ? 01/10/2019 ? Interpretation RESULT: Negative for HPV. No E6 or E7 mRNA is detected from HPV types 16,18,31,3 3,35, 39,45,51,52,56,58,59,66, and 68 by cost coordinator media wayne amplification. Comments Document reviewed and electronically signed by: ? System Interface ? Report date: 01/10/2019 By the signature above, the attending physician certif ies that he/she has personally conducted a gross and/or microscopic examin ation of the described specimens and rendered or confirmed the above diagnosi s. End of Report Specimen Performing Organization Address City/State/ZIP Code Phon e Number [facility] [address] [place] [address] SERVICES documented in this encounter Visit Diagnoses Not on filedocumented in this encounter Care Teams Gun Striper Relationship Specialty Start Date End Date None, Provider PCP - General 09/10/16 documented as of this encounter
--- OUTSIDE RECORDS SUMMARY | 2022-04-22 08:31 | XMS_ITS | Encounter Summary ---
:1980 Author Organization [facility] Address [address] [place] [address] Care Team Providers Name Role Phone Marah Khalil NEHEMIAH Primary Care Provider Reason for Visit Reason Onset Date Comments Appointment Related 07/02/2013 Encounter Details Date Type Department Care Team Description 07/02/2013 Telephone [facility] [place] Felix Saunders ntment Related Endocrinology - Namita Hernandez DO [address] [place], [place] [address] [address] [place] [address] (Wo rk) Social History Tobacco Use Types Packs/Day Years Used Date Never Smoker Alcohol Use Standard Drinks/Week Comments No 0 (1 standard drink = 0.6 oz pure alcoho l) Sex Assigned at Date Recorded Not on file documented as of this encounter Miscellaneous Notes Telephone Encounter - Isis Payne - 07/03/2013 1151 EST LMOM for pt with date and time elephone Encounter - Candelaria Bradshaw - 07/02/2013 1138 EST Pt scheduled for MRI 12-20 9:45. Check in 9-[address] documented in this encounter Plan of Treatment Not on filedocumented as of this encounter Visit Diagnoses Not on filedocumented in this encounter Care Teams Etcher Machine Relationship Specialty Start Date End Date Marah Khalil FNP PCP - General 12/18/08 09/11/15 [address] [place] [phone] documented as of this encounter
--- OUTSIDE RECORDS SUMMARY | 2022-04-22 08:31 | XMS_ITS | Encounter Summary ---
:1980 Author Organization [facility] Address [address] [place] [address] Care Team Providers Name Role Phone Marah Khalil NEHEMIAH Primary Care Provider Encounter Details Date Type Department Care Team Description 09/14/2013 Orders Only [facility] Giovanna Horne Hyper prolactinemia ([facility]) (Primary Dx); Women's Services - A., LINOTYPER Irregular periods/menstrual cycles; [address] Dysmenorrhea; [address] [place] [address] Female infertility associated with anovu lation; [place], [place] Female infe rtility of unspecified origin [phone] [id number] Social History Tobacco Use Types Packs/Day Years Used Date Never Smoker Smokeless Tobacco: Never Used Alcohol Use Standard Drinks/Week Comments No 0 (1 standard drink = 0.6 oz pure alcoho l) Sex Assigned at Date Recorded Not on file documented as of this encounter Plan of Treatment Not on filedocumented as of this encounter Procedures Procedure Name Priority Date/Time Associated Diagnosis Comme nts FSH Routine 09/07/2013 11:18 Hyperprolactinemia Resul ts for this EST ([facility]) procedure are in Irregular the results periods/menstrua l cycles section. Dysmenorrhea Female infertility associated with anovulation Female infertility of unspecified origin documented in this encounter Results FSH (09/07/2013 11:18 EST) Pathologist Sig nature FSH, External 5.4 mIU/ml [facility] Specimen Blood specimen (specimen) Performing Organization Address City/State/ZIP Code Phon e Number [facility] documented in this encounter Visit Diagnoses Diagnosis Hyperprolactinemia (HCC-CMS) (HCC) - Vida scott Other and unspecified anterior pituitary hyperfunction Irregular periods/menstrual cycles Irregular menstrual cycle Dysmenorrhea Female infertility associated with anovu lation Female infertility of unspecified origin documented in this encounter Care Teams Power Sewing Machine Operator Relationship Specialty Start Date End Date Marah Khalil FNP PCP - General 12/18/08 09/11/15 [address] [place] [phone] documented as of this encounter
--- OUTSIDE RECORDS SUMMARY | 2022-04-22 08:31 | XMS_ITS | Encounter Summary ---
:1980 Author Organization [facility] Address [address] [place] [address] Care Team Providers Name Role Phone Karl Saab MD Primary Care Provider None, Provider Primary Care Provider Unavailable Encounter Details Date Type Department Care Team Description 12/24/2015 Historical Results [facility] Ruperto Castaneda, Only [facility] [place] Resul ts [address] [place] [address] [facility] A, [address] [place], [place] [id number] Social History Tobacco Use Types Packs/Day Years [...] Name Priority Date/Time Associated Diagnosis Comme nts US OB ROUTINE 12/24/2015 10:07 Results fo r this (GREATER THAN 14 EDT procedure a re in WEEKS) the results section. documented in this encounter Results US OB ROUTINE (GREATER THAN 14 WEEKS) (12/24/2015 10:07 EDT) Specimen Narrative [facility] - 12/25/2015 8:39 EDT ? EXAM: ULTRASOUND/OB LEVEL 2 WITH TRANSVAG EX. D/ (1007) ? CLINICAL INFORMATION: ? Z33.1 , O23.40 UTI DURIN G ? See attached report. ??Report als o available in PACS. ? SNR:kad ?Reported B y: Alton Angeles MD ? CC: ? Transcribed Date/Time: 12/25/2015 (0839) ? Fire Investigation Manager: YUDY ? Printed Date/Time: 01/11/2019 (23 02) ? PAGE 1 ? Jennifer d Report ? Procedure Note Alton Angeles MD - 06/06/2019 EXAM: ULTRASOUND/OB LEVEL 2 WITH TRANSV AG EX. D/ (1007) CLINICAL INFORMATION: Z33.1 , O23.40 UTI DURING PREG FERDINAND See attached report. Report also availa ble in PACS. SNR:kad Reported By: Alton Angeles MD CC: Transcribed Date/Time: 12/25/2015 (0839 ) Fire Investigation Manager: YUDY Printed Date/Time: 01/11/2019 (6250) PAGE 1 Signed Report Performing Organization Address City/State/ZIP Code Phon e Number [facility] documented in this encounter Visit Diagnoses Not on filedocumented in this encounter Care Teams Boat Engines Installer Relationship Specialty Start Date End Date Karl Saab MD PCP - General 09/12/15 09/09/16 [address] [place] [address] None, Provider PCP - General 09/10/16 documented as of this encounter
--- OUTSIDE RECORDS SUMMARY | 2022-04-22 08:31 | XMS_ITS | Encounter Summary ---
:1980 Author Organization [facility] Address [address] [place] [address] Care Team Providers Name Role Phone Marah Khalil NEHEMIAH Primary Care Provider Reason for Referral (Routine/Next Available) - Closed Specialty Diagnoses / Procedures Referred By Contact Refer red To Contact Diagnoses Hyperprolactinemia ([facility]) (HCC) Irregular periods/menstrual cycles Dysmenorrhea Female infertility associated with anovulation Female infertility of unspecified origin Didi Negrete MD Procedures [facility] [address] [phone] Referral ID Status Reason Start Date Expiration Date Visits Requ ested Visits Authorized [id number] Closed 09/05/2013 1 1 B/RESIDENCE DIRECTOR (Routine/Next Available) - Closed Specialty Diagnoses / Procedures Referred By Contact Refer red To Contact Diagnoses Hyperprolactinemia ([facility]) (HCC) Irregular periods/menstrual cycles Dysmenorrhea Female infertility associated with anovulation Female infertility of unspecified origin Didi Negrete MD Procedures RESIDENCE DIRECTOR US HYSTEROSONOGRAPHY [address] [phone] Referral ID Status Reason Start Date Expiration Date Visits Requ ested Visits Authorized [id number] Closed 09/05/2013 1 1 Reason for Visit Reason Comments Infertility referred Dr Marshal Mccarthy MD [facility] saw Dr Pena 5 years ago attempting 2 years Encounter Details Date Type Department Care Team Description 09/05/2013 Office Visit [facility] Ishmael Meadows Hyperprolactin emia ([facility]) (Primary Dx); Reproductive Medicine MD Krys Irregular periods/menstrual cycles; [facility] [address] [facility] Dysmen orrhea; - [facility] [address] Female infertility associated with anovu lation; [address] [place], [place] Female [place] [address] [phone] Social History Tobacco Use Types Packs/Day Years Used Date Never Smoker Smokeless Tobacco: Never Used Alcohol Use Standard Drinks/Week Comments No 0 (1 standard drink = 0.6 oz pure alcoho l) Sex Assigned at Date Recorded Not on file documented as of this encounter Last Filed Vital Signs Vital Sign Reading Time Taken Comments Blood Pressure - - Pulse - - Temperature - - Respiratory Rate - - Oxygen Saturation - - Inhaled Oxygen Concentration - - Weight 72.6 kg (160 lb) 09/05/2013 0922 EST Height 170.2 cm (5' 7) 09/05/2013 0922 EST Body Mass Index 25.06 09/05/2013 0922 EST documented in this encounter Discharge Diagnoses Diagnosis 253.1 ANT PITUIT HYPERFUNC NEC[ICD-9-CM] 626.4 IRREGULAR MENSTRUATION[ICD-9-CM] 625.3 DYSMENORRHEA[ICD-9-CM] 628.0 INFERTILITY-ANOVULATION[ICD-9-CM] 628.9 FEMALE INFERTILITY NOS[ICD-9-CM] documented in this encounter Discharge Disposition Disposition Code Departure Means Destination Auto Discharge documented in this encounter Progress Notes Didi Negrete MD - 09/05/2013 1027 EST Subjective: Consult requested by: Marshal Mccarthy Violet Cowan is a 32 y.o. female who presents for evaluation of infertility. Patientand partner have been attempting conception for nearly 2 years since her last miscarriage. In 2010 had an SAB at 7 w[address] and underwent a D&C for heavy bleeding. In 11/2011 had a 7 wk MAB with D&C.There was a documented heart beat with both pregnancies per the patient. She was seen previously in 2006 and 2008 by [facility] and had undergone an initial infertility workup with Dr. Pena, but thenconceived spontaneously prior to starting clomid. She also has a history of a 4mm microprolactinoma diagnosed in 2004 by MRI after oligomenorrhea and galactorrhea. On her last MRI in 07/2013 it had shrunk and she is currently stable on 2.5 mg bromocriptine and her prolactin has been normal for quite some time. Her cycles are very regular now and OPKs have been consistently positive on CD 12 and she is no longer using them. Her was deployed to [place] in 2009, and when he returned they began trying to conceive again. Pregnancies with current partner: yes - SAB x 2. Partners sex is male. Menstrual and Endocrine History LMP Patient's last menstrual period was 09/05/2013. Menses regular Shortest Interval 26 Longest Interval 28 days Duration of flow 5-6 days Heavy Menses Yes on day 3 Dysmenorrhea yes Amenorrhea N/A Hirsutism no Galactorrhea Previously in 2004 prior to dx of prolactinoma Obstetrical History Gynecologic History Last PAP ASCUS HPV neg in 07/2013 Previous abdominal or pelvic surgery no Pelvic Pain no Endometriosis no Hot Flashes yes ADAN Exposure no Abnormal Pap yes Cervix Cryo/cone no STD no PID no Infertility and Endocrine Studies BBT yes Ovulation Predictor Kit Yes - always positive on day 12, not using them any more HSG Many years ago Laparoscopy no Hormonal Studies Not recently Semen analysis Yes - in 2006 Other Studies Yes - MRI brain Meds Bromocriptine 2.5 mg qHS Other Therapies N/A Antral Follicle Count no Sexual History Dyspareunia occasional Couple is having intercourse with adequate frequency to maximize chance of conception yes Use of Lubricant no Family History Thyroid Problems no Defects/Inherited diseases no Cysticfibrosis unknown Age Mother Underwent Menopause unknown Past Medical History Diagnosis Date ??? Galactorrhea 08/2005 ??? Hyperprolactinemia 08/2005 No family history on file. Current Outpatient Prescriptions Medication Sig Dispense Refill ??? bromocriptine (PARLODEL) 2.5 mg tablet take 2 tablets by mouth at bedtime 180 Tab 3 ??? folic acid (FOLVITE) 1 mg tablet Take 1 mg by mouth at bedtime. No current facility-administered medications for this visit. No Known Allergies History Social History ??? Marital Status: Spouse Name: N/A Number of Children: N/A ??? Years of Education: N/A Occupational History ??? Not on file. Social History Main Topics ??? Smoking status: Never Smoker ??? Smokeless tobacco: Never Used ??? Alcohol Use: No ??? Drug Use: No ??? Sexually Active: Yes -- Male partner(s) Other Topics Concern ??? Not on file Social History Narrative ??? No narrative on file Review of Systems RESIDENCE DIRECTOR ROS Complete: dysmenorrhea Male Infertility History: Had [facility] many years ago. Objective: Female Exam Ht 170.2 cm (67) Wt 72.576 kg (160 lb) BMI 25.05 kg/m2 LMP 09/05/2013 Wt Readings from Last 1 Encounters: 09/05/13 72.576 kg (160 lb) BMI: Body mass index is 25.05 kg/(m^2). 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 Now unable to conceive x 1.5 years Plan: Will check TSH, prolactin, Day 3 FSH, rubella, varicella HyCoSy scheduled for next Tuesday for cavity & tubal eval (will be day CD 8) Recommended repeat SA, but pt wishes to postpone this due to 's psychological issues (PTSD) Given list of counselors who deal with infertility patients Discussed using scheduled ibuprofen from day prior to menses until day 2-3 to decrease pain and menstrual bleeding Pt seen and d/w Dr. Meadows. Didi Negrete MD 09/05/2013 11:20 Attestation statement: I discussed the patient with the resident/fellow at the time of the visit. I agree with the findings and the plan of care documented in the resident's/fellow's note. Ishmael Tejeda MD - 09/05/2013 1014 EST I agree with Dr. Negrete's note. Letter dictated to Dr Mccarthy. 40 minutes all discussion documented in this encounter Consult Notes Ishmael Meadows MD - 09/05/2013 0389 EST DIVISION OF REPRODUCTIVE ENDOCRINOLOGY AND INFERTILITY CONSULTATION - 09/05/2013 Marshal Mccarthy MD [facility] [address] [facility], [address] [place] [address] Dear Marshal: Thanks so much for sending along Violet Cowan to see me today. She comes for an opinion regarding her hyperprolactinemia, her 2 miscarriages, and her inability to conceive. This most delightful 2, para 0 woman presents with a longstanding history of hyperprolactinemia. She did see our service in 2004. She at that time had a normal semen analysis and had a hysterosalpingogram that demonstrated a possible endometrial polyp. She had polypectomy done with Dr Avi Pena. 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 She was subsequently placed on Dostinex and obtained regular ovulatory cycles. She has been followed by the residential building inspector who changed her to bromocriptine because she was attempting . On the bromocriptine, her cycles are regular and ovulatory by ovulation predictor kits and symptomatology. She has no more galactorrhea. She tried for several years, obtained 2 pregnancies. Both ended in miscarriage. Both were confirmed intrauterine. The first had to have a D+C for bleeding. This was in 2011. Since over 2012 despite having regular cycles, she has not conceived. Her last prolactin was in the normal range. She has not had a recent TSH. A semen analysis done in 2004 was normal by patient report. She is otherwise healthy. Pertinent positives and negatives in the past medical, surgical history and a 13-point review of systems are noted in the electronic health record. On physical examination today, her weight was 160 pounds, her height is 5 feet 7 inches. She appearsanxious but with appropriate answers to questions. She is grossly neurologically normal. She has no hirsutism. She has good mucosal color. There is no scleral icterus. The rest of the physical examination was deferred. The patient preferred rather to talk. Her long interval to conceiving and her subsequent inability to conceive over the last year are worrisome to me that something organic may be going on. I do not believe her previous history of prolactinemia is contributing to her infertility or miscarriages because this has been appropriately treated.She is cycle day 1 and we have arranged an AMH. We have also arranged an ultrasound with an evaluation of her cavity and her fallopian tubes as well as an antral follicle count for a week from today. She will draw a follicle stimulating hormone level on Tuesday (day 3). We also did a TSH, a rubella, varicella, and a prolactin today. I did want to do a sperm count on her partner, but that is not in theworks for while yet. We will revisit that issue in 3 months' time. If everything is normal, may proceed to letrozole and intrauterine insemination. I spent 40 minutes with her, all in discussion and coordination of care. Thank you very much for allowing me to render an opinion in her care. Yours very truly, Ishmael Meadows MD 10 22 AM - Ishmael Meadows MD mn Dictation ID: [id number] cc: Marshal Mccarthy MD, [facility] [address], [address] [address] documented in this encounter Plan of Treatment Not on filedocumented as of this encounter Procedures Procedure Name Priority Date/Time Associated Diagnosis Comme nts RESIDENCE DIRECTOR US Routine 09/12/2013 Hyperprolactinemia Results f or HYSTEROSONOGRAPHY 10:50 EST ([facility]) this procedure Irregular are in the periods/menstrua l cycles results Dysmenorrhea section. Female infertility associated with anovulation Female infertility of unspecified origin PATHOLOGY - SCANNED 09/11/2013 14:27 EST documented in this encounter Results RESIDENCE DIRECTOR US HYSTEROSONOGRAPHY (09/12/2013 10:50 EST) Anatomical Region Laterality Modality Other Specimen Narrative [facility] - 09/12/2013 10:58 EST Indication: Infertility. Gynecological Ultrasonography: Sonohysterography: Performed by: Dr. Rhonda Martinez. Zoning Assistant : Sally Paez. Catheter type: IUI. Fluid used: Saline. HyCoSy. Uterus: Size: Longitudinal 84 mm. Anteri o- posterior 45 mm. Transverse 55 mm. Volume: 108.9 ml. Endometrium: endometrium clearly visuali zed. Endometrium thickness total: 9.9 mm. Impression based on Sonohysterography: T he uterus appears normal in size, shape and contour. ??The endometri al stripe measures 10 mm without evidence of mass or irregularity . ??The ovaries appear sonographically normal. ??No adnexal mas ses are seen or suspected. 30 cc's of bacteriostatic saline was inf used in the endometrial canal. ??Endometrial lining appears smoo th without evidence of polyps, fibroid or other adjacent masses. Right Ovary: normal. Right Ovary size: 19 mm x 16 mm x 25 mm. Volume: 4.0 ml. Comments: AFC = 6 Left Ovary: normal. Left Ovary size: 31 mm x 21 mm x 20 mm. Volume: 6.8 ml. Comments: AFC= 8 Cul de Sac / Pouch of Hakeem: no free f luid visible. Method: with Saline, HyCoSy. View: good. Report Summary: Overall impression: Ultrasound Performed : Transvaginal sonohysterogram-[id number] 1) AFC= 14 2) Air bubbles seen in both fallopian tu bes. Most likely patent bilaterally 3) Normal endometrial cavity. Follow- up: Dr Meadows. Procedure Note 09/12/2013 Indication: Infertility. Gynecological Ultrasonography: Sonohysterography: Performed by: Dr. Rhonda Martinez. Zoning Assistant : Sally Paez. Catheter type: IUI. Fluid used: Saline. HyCoSy. Uterus: Size: Longitudinal 84 mm. Anteri o- posterior 45 mm. Transverse 55 mm. Volume: 108.9 ml. Endometrium: endometrium clearly visuali zed. Endometrium thickness total: 9.9 mm. Impression based on Sonohysterography: T he uterus appears normal in size, shape and contour. The endometrial stripe measures 10 mm without evidence of mass or irregularity . The ovaries appear sonographically normal. No adnexal shankar s are seen or suspected. 30 cc's of bacteriostatic saline was inf used in the endometrial canal. Endometrial lining appears smooth without evidence of polyps, fibroid or other adjacent masses. Right Ovary: normal. Right Ovary size: 19 mm x 16 mm x 25 mm. Volume: 4.0 ml. Comments: AFC = 6 Left Ovary: normal. Left Ovary size: 31 mm x 21 mm x 20 mm. Volume: 6.8 ml. Comments: AFC= 8 Cul de Sac / Pouch of Hakeem: no free f luid visible. Method: with Saline, HyCoSy. View: good. Report Summary: Overall impression: Ultrasound Performed : Transvaginal sonohysterogram-[id number] 1) AFC= 14 2) Air bubbles seen in both fallopian tu bes. Most likely patent bilaterally 3) Normal endometrial cavity. Follow- up: Dr Meadows. Performing Organization Address City/State/ZIP Code Phon e Number [facility] MATERNAL MEDICINE [facility] RADIOLOGY PATHOLOGY - SCANNED (09/11/2013 14:27 EST) Specimen Narrative This result has an attachment that is no t available. FSH (09/07/2013 11:18 EST) Pathologist Sig nature FSH, External 5.4 mIU/ml [facility] Specimen Blood specimen (specimen) Performing Organization Address [facility]/ZIP Code Phon e Number [facility] FSH (09/05/2013 10:54 EST) Pathologist Sig israel FSH 2.6 mIU/ml [facility] Comment: Follicular: 2-11 Mid-Cycle Peak: 3.4-35 Luteal: 1-9 Postmenopausal: 25-120 Specimen Blood specimen (specimen) Performing Organization Address [facility] Phon e Number [facility] [address] [place] [address] SERVICES [facility] [address] [place] [address] PROLACTIN (09/05/2013 10:54 EST) Pathologist Sig israel Prolactin 6.7 ng/ml [facility] Comment: Non-: 2.8-29.2 : 9.7-208.5 Post Menopausal: 1.8-20.3 Specimen Blood specimen (specimen) Performing Organization Address [facility] Phon e Number [facility] [address] [place] [address] SERVICES [facility] [address] [place] [address] ANTIMULLERIAN HORMONE ([facility]) [facility] (09/05/2013 10:54 EST) Pathologist Sig israel [facility] Result Anti Mullerian Hormone = 1.53 ng/mL [facility] Comment: See Pathology Scanned Report in PRISM. Assayed at [facility], [place], [place] Specimen Blood specimen (specimen) Performing Organization Address [facility] Phon e Number [facility] [address] [place] [address] SERVICES [facility] [address] [place] [address] VARICELLA IGG ANTIBODY (09/05/2013 10:54 EST) Varicella IgG Ab Interpretation: Positive [facility] Comment: Presence of detectable Varicella Zoster virus IgG antibodies. Specimen Blood specimen (specimen) Performing Organization Address City/[facility]/ZIP [facility] Phon e Number [facility] [address] [place] [address] SERVICES [facility] [address] [place] [address] RUBELLA IGG ANTIBODY (09/05/2013 10:54 EST) Pathologist Sig nature Rubella IgG Ab Positive [facility] Comment: Positive results suggest immunity to Rubella infection. Specimen Blood specimen (specimen) Performing Organization Address City/State/ZIP Code Phon e Number [facility] [address] [place] [address] SERVICES [facility] [address] [place] [address] TSH (09/05/2013 10:54 EST) Pathologist Sig nature TSH 3.05 0.35 - 5.00 uIU/ml [facility] Specimen Blood specimen (specimen) Performing Organization Address City/[facility]/ZIP Code Phon e Number [facility] [address] [place] [address] SERVICES [facility] [address] [place] [address] documented in this encounter Visit Diagnoses Diagnosis Hyperprolactinemia ([facility]) ([facility]) - Vida scott Other and unspecified anterior pituitary hyperfunction Irregular periods/menstrual cycles Irregular menstrual cycle Dysmenorrhea Female infertility associated with anovu lation Female infertility of unspecified origin documented in this encounter Discontinued Medications Medication Sig Discontinue Reason Start Date End Date bromocriptine (PARLODEL) take 2 tablets by Therapy completed 201209/05/2013 2.5 mg tablet mouth at bedtime documented as of this encounter Care Teams Joint Cutter Relationship Specialty Start Date End Date Marah Khalil FNP PCP - General 12/18/08 09/11/15 [address] [place] [phone] documented as of this encounter
--- OUTSIDE RECORDS SUMMARY | 2022-04-22 08:31 | XMS_ITS | Encounter Summary ---
:1980 Author Organization [facility] Address [address] [place] [address] Care Team Providers Name Role Phone Marah Khalil Primary Care Provider Reason for Visit Reason Comments Other Encounter Details Date Type Department Care Team Description 07/23/2013 Refill [facility] Felix Saunders, Other Endocrinology - [facility] [address] [facility] [address] [place], [place] [address] [facility] [address] [place] [address] (Wo rk) Social History Tobacco Use Types Packs/Day Years Used Date Never Smoker Alcohol Use Standard Drinks/Week Comments No 0 (1 standard drink = 0.6 oz pure alcoho l) Sex Assigned at Date Recorded Not on file documented as of this encounter Ordered Prescriptions Prescription Sig Dispensed Refills Start Date End Date bromocriptine (PARLODEL) take 2 tablets by 180 Tab 3 07/0209/05/2013 2.5 mg tablet mouth at bedtime documented in this encounter Plan of Treatment Not on filedocumented as of this encounter Visit Diagnoses Not on filedocumented in this encounter Care Teams Beauty Consultant Relationship Specialty Start Date End Date Marah Khalil FNP PCP - General 12/18/08 09/11/15 [address] [place] [id number] documented as of this encounter
--- OUTSIDE RECORDS SUMMARY | 2022-04-22 08:31 | XMS_ITS | Encounter Summary ---
:1980 Author Organization [facility] Address [address] [place] [address] Care Team Providers Name Role Phone None, Provider Primary Care Provider Unavailable Reason for Visit Reason Onset Date Comments Paperwork request 04/11/2020 Encounter Details Date Type Department Care Team Description 04/11/2020 Telephone [facility] Felix Saunders Paper work request Endocrinology - Namita Hernandez, DO [address] [place], [place] [address] [place] [address] [address] [place] [address] (Wo rk) Social History Tobacco [...] this encounter Miscellaneous Notes Telephone Encounter - Kimmy North MA - 04/18/2020 8324 EDT Faxed Bill from [facility] progress note from 02/09/18 and medication list on 04.18.20 to [phone] elephone Encounter - Joanne Carey - 04/11/2020 1654 EDT Bill with [facility] requesting patient's med list and most recent progress notes be faxed to [phone] as soon as able. Please call with questions. documented in this encounter Plan of Treatment Not on filedocumented as of this encounter Visit Diagnoses Not on filedocumented in this encounter Care Teams Reel Cutter Relationship Specialty Start Date End Date None, Provider PCP - General 09/10/16 documented as of this encounter
--- OUTSIDE RECORDS SUMMARY | 2022-04-22 08:31 | XMS_ITS | Encounter Summary ---
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 QUANT BETA HCG, Routine 11/30/2013 16:11 Irregular menses Resu lts for this EDT procedure are i n the results section. documented in this encounter Results HCG FOR (11/30/2013 16:11 EDT) Pathologist Sig nature HCG, External <1 mIU/ml [facility] Specimen Blood specimen (specimen) Performing Organization Address City/State/ZIP Code Phon e Number [facility] PROGESTERONE (11/30/2013 16:11 EDT) Pathologist Sig nature Progesterone, External 1.1 ng/ml [facility] Specimen Blood specimen (specimen) Performing Organization Address City/State/ZIP Code Phon e Number [facility] documented in this encounter Visit Diagnoses Diagnosis Irregular menses - Primary Irregular menstrual cycle documented in this encounter Care Teams Bank Consultant Relationship Specialty Start Date End Date Marah Khalil FNP PCP - General 12/18/08 09/11/15 [address] [place] [id number] documented as of this encounter
--- OUTSIDE RECORDS SUMMARY | 2022-04-22 08:31 | XMS_ITS | Encounter Summary ---
:1980 Author Organization [facility] Address [address] [place] [address] Care Team Providers Name Role Phone Marah Khalil Primary Care Provider Reason for Visit Reason Comments Other Encounter Details Date Type Department Care Team Description 07/26/2012 Refill [facility] Felix Saunders, Other Endocrinology - [facility] 62 [facility] 62 [place], [place] [address] [place] [address] [place] [address] (Wo rk) Social History Tobacco [...] bromocriptine (PARLODEL) take 2 tablets by Reorder 07/19/2011 07/26/2012 2.5 mg tablet mouth at bedtime documented as of this encounter Care Teams Terminal Block Assembler Relationship Specialty Start Date End Date Marah Khalil FNP PCP - General 12/18/08 09/11/15 [address] [place] [phone] documented as of this encounter
--- OUTSIDE RECORDS SUMMARY | 2022-04-22 08:31 | XMS_ITS | Encounter Summary ---
:1980 Author Organization [facility] Address [address] [place] [address] Care Team Providers Name Role Phone Marah Khalil NEHEMIAH Primary Care Provider Reason for Visit Reason Onset Date Comments Medications Refill 06/26/2014 Encounter Details Date Type Department Care Team Description 06/26/2014 Refill [facility] Felix Saunders Medic ations Refill Endocrinology - [facility] David, DO [address] [facility] [address] [place], [place] [address] [address] [place] [address] (Wo rk) Social History Tobacco [...] take 2 tablets by 180 Tab 3 06/0207/01/2015 2.5 mg tablet mouth at bedtime. documented in this encounter Miscellaneous Notes Telephone Encounter - Candelaria Bradshaw - 06/26/2014 1028 EST Medication(s) Requested: [facility] Last Refill Date: Last Visit Date: 07-03-13 Next Visit Date: Visit date not found Is patient out of medication? yes Candelaria Bradshaw 06/26/2014 10:28 documented in this encounter Plan of Treatment Not on filedocumented as of this encounter Visit Diagnoses Not on filedocumented in this encounter Discontinued Medications Medication Sig Discontinue Reason Start Date End Date bromocriptine (PARLODEL) take 2 tablets by Reorder 07/19/2013 06/26/2014 2.5 mg tablet mouth at bedtime documented as of this encounter Care Teams Change Consultant Relationship Specialty Start Date End Date Marah Khalil FNP PCP - General 12/18/08 09/11/15 [address] [place] [phone] documented as of this encounter
--- OUTSIDE RECORDS SUMMARY | 2022-04-22 08:31 | XMS_ITS | Encounter Summary ---
:1980 Author Organization [facility] Address [address] [place] [address] Care Team Providers Name Role Phone Marah Khalil NEHEMIAH Primary Care Provider Reason for Visit Reason Comments Pituitary Abnormality Encounter Details Date Type Department Care Team Description 05/30/2012 Office Visit [facility] Chip, Microprol actinoma [place] Endocrinology - Felix Hernandez, Hyperprol actinemia [place] [facility] [address] [facility] [address] [phone] [place] [address] Social History Tobacco Use Types Packs/Day Years Used Date Never Smoker Alcohol Use Standard Drinks/Week Comments No 0 (1 standard drink = 0.6 oz pure alcoho l) Sex Assigned at Date Recorded Not on file documented as of this encounter Last Filed Vital Signs Vital Sign Reading Time Taken Comments Blood Pressure 102/64 05/30/2012 1103 EDT Pulse 80 05/30/2012 1103 EDT Temperature - - Respiratory Rate - - Oxygen Saturation - - Inhaled Oxygen Concentration - - Weight 73 kg (161 lb) 05/30/2012 1103 EDT Height 171.5 cm (5' 7.5) 05/30/2012 1103 EDT Body Mass Index 24.84 05/30/2012 1103 EDT documented in this encounter Progress Notes Felix Saunders, DO - 05/30/2012 1155 EDT SUBJECTIVE: Mrs Violet Cowan is a pleasant 31-year-old female, who returns to the endocrine clinic today for further evaluation and management of her 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 She was first diagnosed in 06/2005 via MRI and presentation of galactorrhea and oligomenorrhea. She had been on Dostinex but was changed to bromocriptine as she was attempting to become . Most recent visit to the endocrine clinic was on 06/01/2011. Please see that note for full details. Unfortunately, the patient had another spontaneous and D+C in September of 2011. She continues on bromocriptine 5 mg daily. Denies lightheadedness, nausea, vomiting, orthostatic symptoms. Her menstrual cycle is regular both in duration and frequency. She is actively trying to conceive with her , who is due to ship out to [facility] in other tour of duty in July of 2013. She denies headaches. No galactorrhea. No vision changes. PAST MEDICAL HISTORY: Reviewed as documented in the electronic medical record. MEDICATIONS: Reviewed as documented in the electronic medical record. ALLERGIES: Reviewed as documented in the electronic medical record. OBJECTIVE: Blood pressure is 102/64. Pulse is 80. Weight is 161 pounds. BMI is 25. In general, the patient is a pleasant 31-year-old female, in no acute distress. HEENT: Eyes: Extraocular muscles intact. Sclerae are anicteric. Gross testing of visual schuster was normal. No periorbital edema. Neck is supple without adenopathy. Thyroid appears normal in size without tenderness or nodules to palpation. Respiratory: Lungs clear to auscultation bilaterally. Cardiovascular: Heart is regular without murmurs, rubs, or gallops. GI: Abdomen is soft, nontender, nondistended, good bowel sounds in all 4 quadrants. Extremities: No clubbing, cyanosis or edema. Strength is 5/5 and equal bilaterally without proximal muscle weakness. Neuro: DTRs are +2/4 and equal bilaterally in all 4 extremities, without a restingtremor. Psych: The patient is A and O x3. Speech and thoughts are appropriate. ASSESSMENT: Mrs Cowan has a 0.4 cm prolactinoma with return to a normal prolactin level with use of bromocriptine 5 mg daily. No significant adverse events from this medication. We will check her prolactin today. Encouraged the patient to continue on this medication to maintain normal menstrual cycle while she is trying to get . Once she becomes , she should discontinue her bromocriptine. We will readdress starting her back on the medication if at all after she is done . Given the fact she has been on medication for greater than 3 years, she is due for a trial off the medication but may want to keep her on the medication to regulate her menstrual cycle in case she wants to have more children after she becomes . The patient voiced understanding. PLAN: 1. We will check a prolactin level today. 2. We will contact the patient with those results. 3. Continue current medications. 4. Call when you become . documented in this encounter Plan of Treatment Not on filedocumented as of this encounter Results PROLACTIN (05/30/2012 11:52 EDT) Pathologist Sig nature Prolactin 8.6 ng/ml [facility] Comment: Non-: 2.8-29.2 : 9.7-208.5 Post Menopausal: 1.8-20.3 Specimen Blood specimen (specimen) Performing Organization Address City/State/ZIP Code Phon e Number [facility] [address] [place] [address] [facility] [address] [place] [address] documented in this encounter Visit Diagnoses Diagnosis Microprolactinoma (HCC-CMS) (HCC) Benign neoplasm of pituitary gland and c raniopharyngeal duct (pouch) Hyperprolactinemia (HCC-CMS) (HCC) Other and unspecified anterior pituitary hyperfunction documented in this encounter Care Teams Side Splitter Relationship Specialty Start Date End Date Marah Khalil FNP PCP - General 12/18/08 09/11/15 [address] [place] [phone] documented as of this encounter
--- OUTSIDE RECORDS SUMMARY | 2022-04-22 08:31 | XMS_ITS | Encounter Summary ---
:1980 Author Organization [facility] Address [address] [place] [address] Care Team Providers Name Role Phone Karl Saab MD Primary Care Provider Encounter Details Date Type Department Care Team Description 11/21/2015 Hospital Encounter [facility] - Unknown, [facility] [phone] [place] [address] (Work) [place] [address] Social History Tobacco Use Types Packs/Day Years [...] Code Departure Means Destination Home or Self Fpc documented in this encounter Plan of Treatment Not on filedocumented as of this encounter Visit Diagnoses Not on filedocumented in this encounter Care Teams Dry Cleaning Machine Operator Helper Relationship Specialty Start Date End Date Karl Saab MD PCP - General 09/12/15 [address] [place] [address] documented as of this encounter
--- OUTSIDE RECORDS SUMMARY | 2022-04-22 08:31 | XMS_ITS | Encounter Summary ---
:1980 Author Organization [facility] Address [address] [place] [address] Care Team Providers Name Role Phone None, Provider Primary Care Provider Unavailable Reason for Visit Reason Onset Date Comments Appointment Related 05/22/2019 Encounter Details Date Type Department Care Team Description 05/22/2019 Telephone [facility] Felix Saunders Appvonnie ntment Related Endocrinology - Namita Hernandez, DO [address] [place], [place] [address] [facility] [address] [place] [address] (Wo rk) Social History Tobacco [...] this encounter Miscellaneous Notes Telephone Encounter - Ho Solorio - 05/22/2019 0948 EDT LMOM to reschedule bumped 10.16 appointment documented in this encounter Plan of Treatment Not on filedocumented as of this encounter Visit Diagnoses Not on filedocumented in this encounter Care Teams Tank Truck Mechanic Relationship Specialty Start Date End Date None, Provider PCP - General 09/10/16 documented as of this encounter
--- OUTSIDE RECORDS SUMMARY | 2022-04-22 08:31 | XMS_ITS | Encounter Summary ---
:1980 Author Organization [facility] Address [address] [place] [address] Care Team Providers Name Role Phone Karl Saab MD Primary Care Provider Reason for Visit Reason Onset Date Comments Results 08/24/2016 Encounter Details Date Type Department Care Team Description 08/24/2016 Telephone [facility] Felix Saunders Endocrinology - [facility] shmuel Hernandez, DO [address] [facility] [address] [place], [place] [address] [address] [place] [address] (Wo rk) Social History Tobacco [...] Telephone Encounter - Susi Lucero RN - 08/24/2016 1331 EST Spoke with Violet and relayed Dr. Sosa review of her recent labs and his recommendation to recheck labs in 6 weeks. Lab reqs mailed to her. She verbalized understanding and had will keep September appointment./ROSARIO elephone Encounter - Felix Saunders DO - 08/24/2016 1000 EST Please contact patient via phone. I have reviewed her most recent laboratory evaluation collected onAugust 20, 2016. Her prolactin is in the high and of normal at 26.5. This is a significant increasefrom 8.1 during her last blood tests approximate 6-8 weeks ago. Still no apparent need for medication but the significant increases concerning the perhaps she may need medication the future. I would like her to recheck her prolactin level in 6 weeks. Please send a lab slip to the patient's home. documented in this encounter Plan of Treatment Not on filedocumented as of this encounter Visit Diagnoses Not on filedocumented in this encounter Care Teams Curb Builder Relationship Specialty Start Date End Date Karl Saab MD PCP - General 09/12/15 09/09/16 [address] [place] [address] documented as of this encounter
--- OUTSIDE RECORDS SUMMARY | 2022-04-22 08:31 | XMS_ITS | Encounter Summary ---
:1980 Author Organization [facility] Address [address] [place] [address] Care Team Providers Name Role Phone Marah Khalil NEHEMIAH Primary Care Provider Reason for Visit Reason Comments Pituitary Abnormality f/u Encounter Details Date Type Department Care Team Description 07/02/2013 Office Visit [facility] Chip, Microprol actinoma ([facility]) (Primary Dx); Endocrinology - Felix Hernandez, Hyperprol actinemia ([facility]) Erick DO [address] [employer] [address] [phone] [place] [phone] Social History Tobacco Use Types Packs/Day Years Used Date Never Smoker Alcohol Use Standard Drinks/Week Comments No 0 (1 standard drink = 0.6 oz pure alcoho l) Sex Assigned at Date Recorded Not on file documented as of this encounter Last Filed Vital Signs Vital Sign Reading Time Taken Comments Blood Pressure 126/76 07/02/2013 1037 EST Pulse 92 07/02/2013 1037 EST Temperature - - Respiratory Rate - - Oxygen Saturation - - Inhaled Oxygen Concentration - - Weight 79.3 kg (174 lb 12.8 oz) 07/02/2013 1037 EST Height 171.5 cm (5' 7.5) 07/02/2013 1037 EST Body Mass Index 26.97 07/02/2013 1037 EST documented in this encounter Discharge Diagnoses Diagnosis 227.3 BENIGN JAZIEL PITUITARY[ICD-9-CM] 253.1 ANT PITUIT HYPERFUNC NEC[ICD-9-CM] documented in this encounter Patient Instructions Patient InstructionsFelix Saunders DO - 07/02/2013 11:[address] Saunders will inform you of your lab results by phone or mail within 2 weeks. If you do not receive your test results after two weeks please contact the office. 2. Call with questions, concerns or change in symptoms. 3. Follow-up in one year documented in this encounter Progress Notes Felix Saunders, - 07/02/2013 1114 EST SUBJECTIVE: Mrs Violet Cowan is a 32-year-old female who returns to the endocrine clinic todayfor further evaluation and management of her hyperprolactinemia secondary to microprolactinoma. She was first diagnosed in June of 2005 via MRI and presentation of galactorrhea and oligomenorrhea. S he had been on Dostinex but was changed to bromocriptine as she was attempting to become . The patient was last seen on 05/30/2012. Please see that note for full details. The patient did have aspontaneous and D and C in September of 2011. She continues today on bromocriptine 5 mg daily, but still desires . Her menstrual cycle is regular in frequency, although the duration has been somewhat changed recently. She is taking her medications regularly. She reports occasional lightheadedness when she changes position, but nothing bothersome to her. No nausea or vomiting. Notes headaches have been increased recently. She describes a pressure behind her eyes, feels that her vision is less sharp and is concerned that perhaps her pituitary tumor is growing. Her weight has remained stable. No change in her appetite. PAST MEDICAL HISTORY: Reviewed as documented in electronic medical record. MEDICATIONS: Reviewed as documented in electronic medical record. ALLERGIES: Reviewed as documented in electronic medical record. OBJECTIVE: Blood pressure is 126/76, pulse is 92, weight is 174 pounds, BMI is 27. In general, patient is a pleasant 32-year-old female in no acute distress. HEENT: Eyes: There is no lid lag or periorbital edema noted. Gross visual field testing was normal. Neck is supple without adenopathy. Thyroid is normal insize without tenderness, nodules to palpation. Respiratory: Lungs clear to auscultation bilaterally.Cardiovascular is regular without murmurs, rubs, or gallops. GI: Abdomen has good bowel sounds in all 4 quadrants. Extremities: No clubbing, cyanosis or edema. Strength is 5/5 and equal bilaterally without proximal muscle weakness. Neuro: DTRs +2/4 and equal bilaterally in all 4 extremities, without aresting tremor. Psych: Patient is A and O x3. Speech and thoughts are appropriate. Denies depression, anxiety. ASSESSMENT: Ms Cowan has a 0.4 cm prolactinoma with return to normal prolactin levels with use ofbromocriptine 5 mg daily. Occasional lightheadedness may be her only adverse event from the bromocriptine. She has had changes in her vision, increase in headaches and pressure behind her eye. I did explain to her today that the chance of her microprolactinoma growing is very small, though she would feel more comfortable if we examined her with a repeat MRI to make sure it is stable. It is certainly not unreasonable given the fact that she has been on treatment for more than 3 years. We actually would like to have a trial off the medication and some recommendations do include an MRI prior to discont inuing medications to make sure that the tumor has at least gotten somewhat smaller in size, although the medication can certainly beat up the tumor to the point where it is no longer able to produce excessive prolactin despite a lack of decrease in size. We will repeat MRI and contact her with those results. We will also check a prolactin level today. She still desires to become so we will keep her on the bromocriptine to regulate her menstrual cycle. If she does become , she was instructed to discontinue the medication, both during the and afterwards if she were to breastfeed. We would reconsider whether going back on it or trying a period off of the medication after is completed if she does become . If not, plan is to follow up with me in 1 year. PLAN: 1. Recheck prolactin level today. 2. I will order MRI and contact patient with those results. 3. Continue current medication. 4. Call when you become , we can review recommendations. documented in this encounter Plan of Treatment Not on filedocumented as of this encounter Procedures Procedure Name Priority Date/Time Associated Diagnosis Comme nts MR HEAD W/WO 07/20/2013 10:28 Results for this CONTRAST EST procedure are i n the results section. documented in this encounter Results MR HEAD W/WO CONTRAST (07/20/2013 10:28 EST) Anatomical Region Laterality Modality Other Specimen Narrative [facility] MRI - 07/20/2013 10:52 EST MR HEAD W/WO CONTRAST ??07/20/2013 10:28 AM Signs and Symptoms/Comments: ??227.3-French ign neoplasm of pituitary gland and craniopharyngeal duct (pouch)- ICD-9-CM 253.1-Other and unspecified anterior pituitary hyperfunc [id number]; h/o microprolactinoma. Pt with vision change s and increase in headaches Prior exam: 06/21/06 Technique: Pre-and postcontrast sagittal and coronal T1-weighted images centered at the level of the sell a turcica in addition to dynamic postcontrast T1-weighted images in the coronal plane and coronal T2-weighted images are provided for review. Findings: Previously described left-side d pituitary microadenoma is less conspicuous on this followup examin ation. There is a small persistent focus of decreased enhancemen t and signal intensity on unenhanced T1 images along the inferior aspect of the pituitary gland just to the left of midline which remain s unchanged however the larger area of signal abnormality along the left side of the gland present on the prior examination is less well visualized on the present examination. In addition the ove rall size of the left side of the pituitary gland appears slightly sma ller in comparison to the prior exam. Infundibulum remains midline in position. No parasellar or suprasellar abnormality . Reidentified is a retention cyst in the right sphenoid sinus. Impression: Interval decrease in conspicuity of the previously described left-sided pituitary microadenoma in com parison to the previous examination and mild interval decrease i n the overall size/volume of the left side of the pituitary gland in comparison to the prior exam. Procedure Note 07/20/2013 MR HEAD W/WO CONTRAST 07/20/2013 10:28 A M Signs and Symptoms/Comments: 227.3-Benig n neoplasm of pituitary gland and craniopharyngeal duct (pouch)- ICD-9-CM 253.1-Other and unspecified anterior pituitary hyperfunc [id number]; h/o microprolactinoma. Pt with vision change s and increase in headaches Prior exam: 06/21/06 Technique: Pre-and postcontrast sagittal and coronal T1-weighted images centered at the level of the sell a turcica in addition to dynamic postcontrast T1-weighted images in the coronal plane and coronal T2-weighted images are provided for review. Findings: Previously described left-side d pituitary microadenoma is less conspicuous on this followup examin ation. There is a small persistent focus of decreased enhancemen t and signal intensity on unenhanced T1 images along the inferior aspect of the pituitary gland just to the left of midline which remain s unchanged however the larger area of signal abnormality along the left side of the gland present on the prior examination is less well visualized on the present examination. In addition the ove rall size of the left side of the pituitary gland appears slightly sma ller in comparison to the prior exam. Infundibulum remains midline in position. No parasellar or suprasellar abnormality . Reidentified is a retention cyst in the right sphenoid sinus. Impression: Interval decrease in conspicuity of the previously described left-sided pituitary microadenoma in com parison to the previous examination and mild interval decrease i n the overall size/volume of the left side of the pituitary gland in comparison to the prior exam. Performing Organization Address City/State/ZIP Code Phon e Number [facility] RADIOLOGY MRI [facility] MRI PROLACTIN (07/02/2013 11:37 EST) Pathologist Sig nature Prolactin 5.9 ng/ml [facility] Comment: Non-: 2.8-29.2 : 9.7-208.5 Post Menopausal: 1.8-20.3 Specimen Blood specimen (specimen) Performing Organization Address City/State/ZIP Code Phon e Number [facility] [address] [place] [address] SERVICES [facility] [address] [place] [address] documented in this encounter Visit Diagnoses Diagnosis Microprolactinoma (HCC-CMS) (HCC) - Prim fatuma Benign neoplasm of pituitary gland and c raniopharyngeal duct (pouch) Hyperprolactinemia (HCC-CMS) (HCC) Other and unspecified anterior pituitary hyperfunction documented in this encounter Care Teams Astrobiologist Relationship Specialty Start Date End Date Marah Khalil FNP PCP - General 12/18/08 09/11/15 [address] [phone] documented as of this encounter
--- OUTSIDE RECORDS SUMMARY | 2022-04-22 08:31 | XMS_ITS | Encounter Summary ---
:1980 Author Organization [facility] Address [address] [place] [address] Care Team Providers Name Role Phone Karl Saab MD Primary Care Provider Reason for Visit Reason Onset Date Comments Follow-up 07/05/2016 no longer breast fee ding Encounter Details Date Type Department Care Team Description 07/05/2016 Telephone [facility] Felix Saunders w-up (no longer Endocrinology - Namita Hernandez, DO breast feeding) [address] [place], [place] [address] [address] [address] [place] [address] Social History Tobacco Use Types [...] Telephone Encounter - Susi Lucero RN - 07/05/2016 2443 EST Talked with Violet and asked her to have her Prolactin level drawn. She is going tomorrow to [facility] and will do it then. Lab requisitions faxed./ROSARIO elephone Encounter - Felix Saunders DO - 07/05/2016 1456 EST Lets repeat prolactin levels and we can discuss restarting treatment after I have the labs back sndnwe can talk on the phone. elephone Encounter - Diamante Bernard - 07/05/2016 0908 EST Pt is no longer breast feeding and would like to discuss what her plan of care is now. documented in this encounter Plan of Treatment Not on filedocumented as of this encounter Visit Diagnoses Diagnosis Anterior pituitary hyperfunction (HCC-CM S) (HCC) - Primary Other and unspecified anterior pituitary hyperfunction documented in this encounter Care Teams Nail Feeder Relationship Specialty Start Date End Date Karl Saab MD PCP - General 09/12/15 09/09/16 [address] [place] [address] documented as of this encounter
--- OUTSIDE RECORDS SUMMARY | 2022-04-22 08:31 | XMS_ITS | Encounter Summary ---
:1980 Author Organization [facility] Address [address] [place] [address] Care Team Providers Name Role Phone None, Provider Primary Care Provider Unavailable Encounter Details Date Type Department Care Team Description 08/21/2021 Lab [facility] Outr Resulting Lab, Pathology & Laboratory Provider [facility] [address] [place] [address] Social History Tobacco Use Types Packs/Day Years [...] Name Priority Date/Time Associated Diagnosis Comme nts AFP TUMOR MARKER Routine 08/20/2021 14:30 EST Res ults for this procedure are i n the results section. documented in this encounter Results AFP TUMOR MARKER (08/20/2021 14:30 EST) AFP Tumor Marker 6.1 <8.1 ng/mL [facility] Comment: CENTER LAB[facility]ORY AFP Tumor Marker cannot be interpreted in fem ales. ?? SERVICES NOTE: Serum AFP concentrations liana uld not be interpreted as absolute evidence for the presence or absence of malignant disease. Assayed on Siemens ADVIA Ashutosh taur XPT using chemiluminescent technology. ??Values obtained by using different assay methods cannot be used interchangeably. Specimen Blood - Venous blood (substance) Performing Organization Address City/State/ZIP Code Phon e Number [facility] [address] [place] [address] SERVICES documented in this encounter Visit Diagnoses Not on filedocumented in this encounter Care Teams Roll Grinder Operator Relationship Specialty Start Date End Date None, Provider PCP - General 09/10/16 documented as of this encounter
--- OUTSIDE RECORDS SUMMARY | 2022-04-22 08:31 | XMS_ITS | Encounter Summary ---
:1980 Author Organization [facility] Address [address] [place] [address] Care Team Providers Name Role Phone Marah Khalil DISTRICT SUPERVISOR Primary Care Provider Encounter Details Date Type Department Care Team Description 02/06/2015 Results Only [facility] Ishmael Meadows MD [phone] [address] [facility] [place], [place] [address] (Wo rk) Social History Tobacco Use Types [...] Procedure Name Priority Date/Time Associated Diagnosis Comme [facility] SURGICAL PATHOLOGY Routine 02/06/2015 9:32 EDT Re sults for this procedure are i n the results section. documented in this encounter Results SURGICAL PATHOLOGY (02/06/2015 9:32 EDT) Pathology Report: SURGICAL PATHOLOGY REPORT [facility] Reports generated via electronic interface contain ajith ginal data; LABORATORY however they are lacking the format of the original re port. SERVICES Caution should be taken when reading/interpreting unfo rmatted reports. Name: ? MERVIN WILEY ? Accession #: ? [id number] ? : ? 1980 (Age: [age]) ??F ? Collect Date: ? 02/06/2015 ? Location: ? [facility] ? Receive Date: ? 5 ? Provider: ISHMAEL MEADOWS MD Copy to: JAYLON SARGENT MD ? Final Pathologic Diagnosis: ENDOMETRIUM WITH POLYPS, CURETTAGE: - ??Polypoid fragments of se cretory endometrium with rare fragments suggestive of functional endometrial polyp. - ??Fragments of benign endocervical mucosa. Document reviewed and electronically signed by: SERGIO WARE MD Report ??Date: 02/10/2015 11:38 By the signature above, the attending physician certif ies that he/she has personally conducted a gross and/or microscopic examin ation of the described specimens and rendered or confirmed the above diagnosi s. Specimen(s) Received: Polyp and EMC Clinical History: Endometrial polyps Gross Description: ? Received in formalin labelled with proper patient identification (initials B, C) and polyp and EMC is an aggregate of red-pink soft tissue fragments (3.0 x 3.0 x 2.0 cm). Submitted in toto in 1-6. Chloe Fernando 02/07/2015 11:26 AM End of Report Specimen Performing Organization Address City/State/ZIP Code Phon e Number [facility] [address] [place] [address] SERVICES documented in this encounter Visit Diagnoses Not on filedocumented in this encounter Care Teams Technical Assoc Relationship Specialty Start Date End Date Marah Khalil FNP PCP - General 12/18/08 09/11/15 [address] [place] [phone] documented as of this encounter
--- OUTSIDE RECORDS SUMMARY | 2022-04-22 08:31 | XMS_ITS | Encounter Summary ---
:[address] [facility] Address [address] [place] [address] Care Team Providers Name Role Phone Marah Khalil NEHEMIAH Primary Care Provider Reason for Visit Reason Onset Date Comments Medications Refill 07/01/2015 Encounter Details Date Type Department Care Team Description 07/01/2015 Refill [facility] Felix Saunders Medic ations Refill Endocrinology - [facility] shmuel Hernandez, DO [address] [facility] [address] [place], [place] [address] [address] [place] [phone] (Wo rk) Social History Tobacco [...] take 2 tablets by 180 Tab 3 09/2014 2.5 mg tablet mouth at bedtime documented in this encounter Miscellaneous Notes Telephone Encounter - Brie Starkey - 07/01/2015 1002 EST Medication(s) Requested: Bromocriptine 2.5 mg tablet Pharmacy: [facility] [address] [place], [place] Last Refill Date: 06/26/14 Last Visit Date: 07/02/13 Next Visit Date: 09/15/2015 Is patient out of medication? No - Has 1 week left Brie Starkey 07/01/2015 10:03 documented in this encounter Plan of Treatment Not on filedocumented as of this encounter Visit Diagnoses Not on filedocumented in this encounter Discontinued Medications Medication Sig Discontinue Reason Start Date End Date bromocriptine (PARLODEL) take 2 tablets by Reorder 06/26/2014 07/01/2015 2.5 mg tablet mouth at bedtime. documented as of this encounter Care Teams Registered Nurse Behavioral Health Relationship Specialty Start Date End Date Marah Khalil FNP PCP - General 12/18/08 09/11/15 [address] [place] [phone] documented as of this encounter
--- OUTSIDE RECORDS SUMMARY | 2022-04-22 08:31 | XMS_ITS | Encounter Summary ---
:1980 Author Organization [facility] Address [address] [place] [address] Care Team Providers Name Role Phone Marah Khalil NEHEMIAH Primary Care Provider Reason for Visit Reason Onset Date Comments Results 12/03/2013 Encounter Details Date Type Department Care Team Description 12/03/2013 Telephone [facility] Center Reproductive Medicine Carina Kimbrough RN Results & [facility] - [facility] [address] [place] [address] Social History Tobacco Use Types [...] this encounter Miscellaneous Notes Telephone Encounter - Ishmael Meadows MD - 12/07/2013 1118 EDT Did she have a spont period? If so, continue on let 2.5, if not repeat prog and beta, start let 5.0 elephone Encounter - Candy Kimbrough RN - 12/03/2013 0951 EDT Call from pt. Results of BHCG and progesterone >BHCG- <1, progesterone 1.1. documented in this encounter Plan of Treatment Not on filedocumented as of this encounter Visit Diagnoses Not on filedocumented in this encounter Discontinued Medications Medication Sig Discontinue Reason Start Date End Date letrozole (FEMARA) 2.5 Take one tablet for Reorder 11/01/2013 12/03/2013 mg tablet cycle days 5 through 9.. documented as of this encounter Care Teams Tele Marketing Executive Relationship Specialty Start Date End Date Marah Khalil FNP PCP - General 12/18/08 09/11/15 [address] [place] [phone] documented as of this encounter
--- OUTSIDE RECORDS SUMMARY | 2022-04-22 08:31 | XMS_ITS | Encounter Summary ---
:1980 Author Organization [facility] Address [address] [place] [address] Care Team Providers Name Role Phone None, Provider Primary Care Provider Unavailable Reason for Visit Reason Comments Pituitary Abnormality Encounter Details Date Type Department Care Team Description 02/09/2018 Office Visit [facility] Marc Adam actinoma Endocrinology - Felix Hernandez ([facility]) (Primary Dx) [address] [phone] [place] [phone] Social History Tobacco Use Types Packs/Day Years Used Date Never Smoker Smokeless Tobacco: Never Used Alcohol Use Standard Drinks/Week Comments No 0 (1 standard drink = 0.6 oz pure alcoho l) Sex Assigned at Date Recorded Not on file documented as of this encounter Last Filed Vital Signs Vital Sign Reading Time Taken Comments Blood Pressure 123/72 02/09/2018 1408 EDT Pulse 99 02/09/2018 1408 EDT Temperature - - Respiratory Rate - - Oxygen Saturation - - Inhaled Oxygen Concentration - - Weight 73 kg (161 lb) 02/09/2018 1408 EDT Height 170.2 cm (5' 7.01) 02/09/2018 1408 EDT Body Mass Index 25.21 02/09/2018 1408 EDT documented in this encounter Functional Status [...] Patient Instructions Patient InstructionsGiFelix mendiola DO - 02/09/2018 14:[address] Adam will inform you of your lab results by phone or mail within 2 weeks. If you do not receive your test results after two weeks please contact the office. 2. Call with questions, concerns or change in symptoms. 3. Follow-up in one year documented in this encounter Progress Notes Felix Adam DO - 02/09/2018 1440 EDT SUBJECTIVE:?? 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 She was first diagnosed in June of 2005 via MRI and presentation of galactorrhea and oligomenorrhea.?? She had been on Dostinex but was changed to bromocriptine as she was attempting to become . She had successful in vitro fertilization. Her baby is now 22 months old. She has been off bromocriptine and Dostinex. Repeat prolactin in January 2017 was normal. Upon interview today she denies galactorrhea, change in libido or change in vision. Her menstrual cycle has been regular in frequency andduration. She denies headaches. PAST MEDICAL HISTORY:?? Reviewed as documented in electronic medical record. ?? MEDICATIONS:?? Reviewed as documented in electronic medical record. ?? ALLERGIES:?? Reviewed as documented in electronic medical record. ?? OBJECTIVE:?? BP 123/72 Pulse 99 Ht 170.2 cm (67.01) Wt 73 kg (161 lb) BMI 25.21 kg/m2.?? Ingeneral, patient is a pleasant 37-year-old female in no acute distress.?? HEENT:?? Eyes:?? There is no lid lag or periorbital edema noted.?? Gross visual field testing was normal.?? Neck is supple without adenopathy.?? Thyroid is normal in size without tenderness, nodules to palpation.?? Respiratory:?? Lungs clear to auscultation bilaterally.?? Cardiovascular is regular without murmurs, rubs, or gallops.?? GI:?? Abdomen has good bowel sounds in all 4 quadrants.?? Extremities:?? No clubbing, cyanosisor edema.?? Strength is 5/5 and equal bilaterally without proximal muscle weakness.?? Neuro:?? DTRs +2/4 and equal bilaterally in all 4 extremities, without a resting tremor.?? Psych:?? Patient is A and O x3.?? Speech and thoughts are appropriate.?? Denies depression, anxiety. ?? ASSESSMENT:?? Ms Cowan has microprolactinoma with return to normal prolactin levels currently offof medication. We will recheck prolactin level today to make sure things are stable. She should callquestions or concerns. Repeat MRI in 2012 showed tumor was smaller in size. She should follow-up with me in 1 year ?? PLAN: 1. Currently off bromocriptine with normal prolactin levels as of September 2016 2. Will repeat prolactin levels today 3. Follow-up in one year documented in this encounter Miscellaneous Notes Addendum Note - Felix Adam DO - 02/09/2018 1511 EDT Addended by: FELIX ADAM on: 02/09/2018 15:11 Modules accepted: Orders documented in this encounter Plan of Treatment Not on filedocumented as of this encounter Results PROLACTIN (02/09/2018 15:12 EDT) Pathologist Sig nature Prolactin 8.7 ng/ml [facility] Comment: LABORATORY SERVICES Non-: 2.8-29.2 : 9.7-208.5 Post Menopausal: 1.8-20.3 Specimen Blood specimen (specimen) - Blood Performing Organization Address City/State/ZIP Code Phon e Number [facility] [address] [place] [address] SERVICES documented in this encounter Visit Diagnoses Diagnosis Microprolactinoma (HCC-CMS) (HCC) - Prim fatuma 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
--- OUTSIDE RECORDS SUMMARY | 2022-04-22 08:31 | XMS_ITS | Encounter Summary ---
:1980 Author Organization [facility] Address [address] [place] [address] Care Team Providers Name Role Phone Marah Khalil PROBATION WORKER Primary Care Provider Reason for Visit Reason Comments Follow-up post coital testing Encounter Details Date Type Department Care Team Description 10/19/2013 Office Visit [facility] Ishmael Meadows Irregular emilie ods/menstrual cycles (Primary Dx); Reproductive Medicine MD Krys Hyperprolactinemia ([facility] & [facility] [address] [place] [address] Female infertility associated with anovulation - [facility] [address] [place] [address] [phone] Social History Tobacco Use Types Packs/Day Years Used Date Never Smoker Smokeless Tobacco: Never Used Alcohol Use Standard Drinks/Week Comments No 0 (1 standard drink = 0.6 oz pure alcoho l) Sex Assigned at Date Recorded Not on file documented as of this encounter Progress Notes Ishmael Meadows MD - 10/19/2013 1351 EDT I met with Violet today. She is 25, 28-day cycle on letrozole. It feels more normal to her. Her partner is coming around to giving a semen analysis eventually. She did turn a kit positive a day or so ago and had sex this morning at 8:00. She is here for postcoital test at 1:30 in the afternoon. We did a postcoital test. We assessed the spinnbarkeit, which was very minimal (she is 2 days after the kit turned positive). There were more than 5 moving sperm in each high-powered. It is clear that he is not azoospermic. Our plan at present is to continue with letrozole/timed intercourse for the next 2 cycles. At that time, if it does not work we will move on to intrauterine insemination. Thirty minutes, 20 in discussion. documented in this encounter Plan of Treatment Not on filedocumented as of this encounter Visit Diagnoses Diagnosis Irregular periods/menstrual cycles - Vida chavez Irregular menstrual cycle Hyperprolactinemia (HCC-CMS) (HCC) Other and unspecified anterior pituitary hyperfunction Female infertility associated with anovu lation documented in this encounter Care Teams Automotive General Manager Relationship Specialty Start Date End Date Marah Khalil FNP PCP - General 12/18/08 09/11/15 [address] [place] [phone] documented as of this encounter
--- OUTSIDE RECORDS SUMMARY | 2022-04-22 08:31 | XMS_ITS | Encounter Summary ---
:1980 Author Organization [facility] Address [address] [place] [address] Care Team Providers Name Role Phone Marah Khalil NEHEMIAH Primary Care Provider Reason for Visit Reason Comments Labs Only Encounter Details Date Type Department Care Team Description 07/02/2013 Procedure visit [facility] Segundo Saunders, [address] [phone] Hyperprolactinemia ([facility]); Endocrinology - Phlebotomy, [facility] Microprolactinoma ([facility]) [address] [address] Social History Tobacco Use Types Packs/Day Years Used Date Never Smoker Alcohol Use Standard Drinks/Week Comments No 0 (1 standard drink = 0.6 oz pure alcoho l) Sex Assigned at Date Recorded Not on file documented as of this encounter Progress Notes Kiersten Green - 07/02/2013 1154 EST Blood sample drawn from vein for testing at the order of Dr. Saunders ???I was supervised by Dr. Saunders who was in the suite and readily available.?? documented in this encounter Plan of Treatment Not on filedocumented as of this encounter Procedures Procedure Name Priority Date/Time Associated Diagnosis Comme nts PROLACTIN Routine 07/02/2013 11:37 Hyperprolactinemia Resul ts for this EST ([facility]) procedure are in Microprolactinoma the result s ([facility]) section. 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
--- OUTSIDE RECORDS SUMMARY | 2022-04-22 08:31 | XMS_ITS | Encounter Summary ---
:1980 Author Organization [facility] Address [address] [place] [address] Care Team Providers Name Role Phone None, Provider Primary Care Provider Unavailable Reason for Visit Reason Onset Date Comments Appointment Related 11/19/2019 11-21-19 Encounter Details Date Type Department Care Team Description 11/19/2019 Telephone [facility] Felix Saunders Appoi ntment Related Endocrinology - Namita Hernandez DO (11-21-19 ) [address] [place], [place] [address] [place] [address] [address] [place] [address] Social History Tobacco Use Types [...] this encounter Miscellaneous Notes Telephone Encounter - Alireza Guillen - 11/19/2019 1118 EDT We will reach out to patient when we are able to schedule in office visits elephone Encounter - Janell Puentes - 11/19/2019 1103 EDT Reason for Call: Appointment Related (11-21-19 ) Summary/Symptoms: Patient would like to reschedule for a couple of months out when she can be seen in person not having any issues now and can not do the tele video appointment on 11-20 Sound Installation Worker maddied Janell Puentes 11/19/2019 11:03 documented in this encounter Plan of Treatment Not on filedocumented as of this encounter Visit Diagnoses Not on filedocumented in this encounter Care Teams Driver License Examiner Relationship Specialty Start Date End Date None, Provider PCP - General 09/10/16 documented as of this encounter
--- OUTSIDE RECORDS SUMMARY | 2022-04-22 08:31 | XMS_ITS | Encounter Summary ---
:1980 Author Organization [facility] Address [address] [place] [address] Care Team Providers Name Role Phone Karl Saab MD Primary Care Provider None, Provider Primary Care Provider Unavailable Encounter Details Date Type Department Care Team Description 01/07/2016 Historical Results [facility] - Melissa Rodriguez, Only [facility] Radiology Resul ts [address] [place] [address] [address], [address] [place] [address] Social History Tobacco Use Types Packs/Day [...] Date/Time Associated Diagnosis Comme nts US OB LIMITED 01/07/2016 12:55 EDT Result s for this procedure are i n the results section . documented in this encounter Results US OB LIMITED (01/07/2016 12:55 EDT) Specimen Narrative [facility] - 01/07/2016 14:26 EDT ? EXAM: ULTRASOUND/TRANSABDOMINAL OB LIMITE EX. D/ (1255) ? CLINICAL INFORMATION: ? Z33.1 RE-EVALUATE RVOT IT WAS NOT SEEN ON ? 12/24/15 U/S ? See attached report. ??Report als o available in PACS. ? BBL:rosie ?Reported B y: Clive Watson MD ? CC: ? Transcribed Date/Time: 01/07/2016 (4446) ? Cyberathlete: YUDY ? Printed Date/Time: 01/11/2019 (23 47) ? PAGE 1 ? Jennifer d Report ? Procedure Note Clive Watson MD - 06/06/2019 EXAM: ULTRASOUND/TRANSABDOMINAL OB LIMI TE EX. D/ (7415) CLINICAL INFORMATION: Z33.1 RE-EVALUATE RVOT IT WAS NOT SE EN ON 12/24/15 U/S See attached report. Report also availa ble in PACS. BBL:rosie Reported By: Clive Watson MD CC: Transcribed Date/Time: 01/07/2016 (2566 ) Cyberathlete: YUDY Printed Date/Time: 01/11/2019 (6751) PAGE 1 Signed Report Performing Organization Address City/State/ZIP Code Phon e Number [facility] documented in this encounter Visit Diagnoses Not on filedocumented in this encounter Care Teams Marine Electronics Technician Relationship Specialty Start Date End Date Karl Saab MD PCP - General 09/12/15 09/09/[address] [place] [phone] None, Provider PCP - General 09/10/16 documented as of this encounter
--- OUTSIDE RECORDS SUMMARY | 2022-04-22 08:31 | XMS_ITS | Encounter Summary ---
:[address] [facility] Address [address] [place] [address] Care Team Providers Name Role Phone Karl Saab MD Primary Care Provider None, Provider Primary Care Provider Unavailable Encounter Details Date Type Department Care Team Description 11/21/2015 Historical Results [facility] Ruperto Castaneda, Only [facility]iology Resul ts [address] [place] [address] [facility] A, [address] [place], [place] [id number] Social History Tobacco Use Types Packs/Day Years [...] Associated Diagnosis Comme nts US OB LIMITED 11/21/2015 13:02 EDT Result s for this procedure are i n the results section . documented in this encounter Results US OB LIMITED (11/21/2015 13:02 EDT) Specimen Narrative [facility] - 11/21/2015 16:12 EDT ? EXAM: ULTRASOUND/TRANSABDOMINAL OB LIMITE EX. D/ (1302) ? CLINICAL INFORMATION: ? CHECK VIABILITY ? SPOTTING ? CHRIS 05/18/2016 ? See attached report. ??Report als o available in PACS. ? JSP:Shea ?Reported B y: Cornelius Greene MD ? CC: ? Transcribed Date/Time: 11/21/2015 (1612) ? Almond Cutting Machine Tender: YUDY ? Printed Date/Time: 01/11/2019 (11 30) ? PAGE 1 ? Jennifer d Report ? Procedure Note Cornelius Greene MD - 06/06/2019 EXAM: ULTRASOUND/TRANSABDOMINAL OB LIMI TE EX. D/ (1302) CLINICAL INFORMATION: CHECK VIABILITY SPOTTING CHRIS 05/18/2016 See attached report. Report also availa ble in PACS. JSP:Shea Reported By: Cornelius Greene MD CC: Transcribed Date/Time: 11/21/2015 (1612 ) Almond Cutting Machine Tender: YUDY Printed Date/Time: 01/11/2019 (1130) PAGE 1 Signed Report Performing Organization Address City/State/ZIP Code Phon e Number [facility] documented in this encounter Visit Diagnoses Not on filedocumented in this encounter Care Teams Eyewear Consultant Relationship Specialty Start Date End Date Karl Saab MD PCP - General 09/12/15 09/09/16 [address] [place] [address] None, Provider PCP - General 09/10/16 documented as of this encounter
--- OUTSIDE RECORDS SUMMARY | 2022-04-22 08:31 | XMS_ITS | Encounter Summary ---
:1980 Author Organization [facility] Address [address] [place] [address] Care Team Providers Name Role Phone Marah Khalil NEHEMIAH Primary Care Provider Reason for Visit Reason Onset Date Comments Infertility 10/10/2013 Encounter Details Date Type Department Care Team Description 10/10/2013 Telephone [facility] Leo Hernandez, Infertility Medicine & Infertility RN Center - [facility] [address] [facility] [address] [place], [place] [phone] [place] [address] Social History Tobacco Use Types Packs/Day Years Used Date Never Smoker Smokeless Tobacco: Never Used Alcohol Use Standard Drinks/Week Comments No 0 (1 standard drink = 0.6 oz pure alcoho l) Sex Assigned at Date Recorded Not on file documented as of this encounter Miscellaneous Notes Telephone Encounter - Meghan Hernandez - 10/17/2013 0820 EDT PC- positive ovulation on 10.17.13- appointment scheduled for post coital testing 2 days after ovulation- appointment on 10.19.13 w/ Isaias Meadows @ 1:30. Patient aware. Telephone Encounter - Meghan Hernandez - 10/10/2013 1033 EDT PC- patient wanting to schedule post coital testings as requested by Dr. Meadows. Explained to patient to call office when OPK turns positive, so that the post coital testing appointment can be scheduled 2 days after postive ovulation. Patient verbalized understanding and will call office with positiveovulation. Cycle 1 of letrozole 2.5, LMP 3..14, negative testing taken on 10.07.13, startedLetrozole 2.5 on CD 5 on 10.08.13. Explained importance of negative testing prior to starting letrozole. Patient verbalized understanding and had no further questions. documented in this encounter Plan of Treatment Not on filedocumented as of this encounter Visit Diagnoses Not on filedocumented in this encounter Care Teams Electronic Game Developer Relationship Specialty Start Date End Date Marah Khalil FNP PCP - General 12/18/08 09/11/15 [address] [place] [phone] documented as of this encounter
--- OUTSIDE RECORDS SUMMARY | 2022-04-22 08:31 | XMS_ITS | Encounter Summary ---
:1980 Author Organization [facility] Address [address] [place] [address] Care Team Providers Name Role Phone None, Provider Primary Care Provider Unavailable Encounter Details Date Type Department Care Team Description 12/03/2020 Lab Requisition [facility] Outr Resulting Lab, Pathology & Laboratory Provider [facility] [address] [place] [address] Social History Tobacco Use Types [...] Diagnosis Comme nts AFP TUMOR MARKER Routine 12/03/2020 9:35 EDT Resu lts for this procedure are i n the results section. documented in this encounter Results AFP TUMOR MARKER (12/03/2020 9:35 EDT) AFP Tumor Marker 3.8 <8.1 ng/mL [facility] Comment: CENTER LAB[facility]ORY AFP Tumor Marker [...] City/State/ZIP Code Phon e Number [facility] [address] [place] [address] SERVICES documented in this encounter Visit Diagnoses Not on filedocumented in this encounter Care Teams Front Desk Officer Relationship Specialty Start Date End Date None, Provider PCP - General 09/10/16 documented as of this encounter
--- OUTSIDE RECORDS SUMMARY | 2022-04-22 08:31 | XMS_ITS | Clinical Summary ---
:1980 Author Organization [facility] Address [address] [place] [address] Care Team Providers Name Role Phone None, Provider Primary Care Provider Unavailable Allergies No known active allergies Medications Medication Sig Dispensed Refills Start Date End Date Status folic acid (FOLVITE) 1 Take 1 mg by mouth 0 Active mg tablet at bedtime. letrozole (FEMARA) 2.5 Take one tablet 5 Tab 0 12/03/2013 Active mg tablet for cycle days 5 through 9.. Additional Information Patient not taking. Reported on 01/31/2017 bromocriptine (PARLODEL) 2.5 mg take 2 tablets by mouth 180 Tab 3 07/02/2015 Active tablet at bedtime Additional Information Patient not taking. 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 On daily bromocriptine as she is trying to get . 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 Overview: ICD10 Update Auto Replacement Anxiety 08/25/2005 Medical History Medical History Date Comments Galactorrhea 08/2005 Hyperprolactinemia ([facility]) ([facility]) 08/2005 Family History Relation Name Status Comments Brother Alive Father Alive Mother Alive HTN Social History Tobacco Use Types Packs/Day Years Used Date Never Smoker Smokeless Tobacco: Never Used Alcohol Use Standard Drinks/Week Comments No 0 (1 standard drink = 0.6 oz pure alcoho l) Sex Assigned at Date Recorded Not on file Last Filed Vital Signs Vital Sign Reading Time Taken Comments Blood Pressure 123/72 02/09/2018 1408 EDT Pulse 99 02/09/2018 1408 EDT Temperature 36.5 ??C (97.7 ??F) 02/19/2009 1315 EDT Respiratory Rate 15 02/19/2009 1315 EDT Oxygen Saturation 99% 02/19/2009 1315 EDT Inhaled Oxygen Concentration - - Weight 73 kg (161 lb) 02/09/2018 1408 EDT Height 170.2 cm (5' 7.01) 02/09/2018 1408 EDT Body Mass Index 25.21 02/09/2018 1408 EDT Plan of Treatment Health Maintenance Due Date Last Done Comments Hepatitis C Screen 1980 COVID-19 Vaccine (1) 12/30/[address] Relationship Specialty Start Date End Date None, Provider PCP - General 09/10/16
--- OUTSIDE RECORDS SUMMARY | 2022-04-22 08:31 | XMS_ITS | Encounter Summary ---
:1980 Author Organization [facility] Address [address] [place] [address] Care Team Providers Name Role Phone Karl Saab MD Primary Care Provider Reason for Visit Reason Onset Date Comments Update 05/20/2016 Not producing breast milk Encounter Details Date Type Department Care Team Description 05/20/2016 Telephone [facility] Felix Saunders (Not producing Endocrinology - Till David, DO breast milk) [email or web address], [place] [address] [place] [address] [place] [address] Social History Tobacco Use Types [...] this encounter Miscellaneous Notes Telephone Encounter - Anabel Trujillo - 05/21/2016 2556 EDT Started producing milk this am. She is all set. elephone Encounter - Vanda Garcia - 05/20/2016 1023 EDT Pt calling states that she is not producing any breast milk and just recently gave and that they found a pituitary tumor and is concerned that could be why she isn't producing any milk. Please call. documented in this encounter Plan of Treatment Not on filedocumented as of this encounter Visit Diagnoses Not on filedocumented in this encounter Care Teams Business Liaison Manager Relationship Specialty Start Date End Date Karl Saab MD PCP - General 09/12/15 09/09/16 [address] [place] [address] documented as of this encounter
--- OUTSIDE RECORDS SUMMARY | 2022-04-22 08:31 | XMS_ITS | Encounter Summary ---
:1980 Author Organization [facility] Address [address] [place] [address] Care Team Providers Name Role Phone None, Provider Primary Care Provider Unavailable Encounter Details Date Type Department Care Team Description 01/14/2021 Lab Requisition [facility] Outr Resulting Lab, Pathology & Laboratory Provider [facility] [address] [place] [address] Social History Tobacco Use Types [...] Diagnosis Comme nts AFP TUMOR MARKER Routine 01/14/2021 9:05 EDT Resu lts for this procedure are i n the results section. documented in this encounter Results AFP TUMOR MARKER (01/14/2021 9:05 EDT) AFP Tumor Marker 4.4 <8.1 ng/mL [facility] MEDICAL Comment: [facility]ENTER [facility] AFP Tumor Marker [...] Organization Address City/State/ZIP Code Phon e Number [facility] [address] [place] [address] SERVICES documented in this encounter Visit Diagnoses Not on filedocumented in this encounter Care Teams Power Cutting Machine Operator Relationship Specialty Start Date End Date None, Provider PCP - General 09/10/16 documented as of this encounter
--- OUTSIDE RECORDS SUMMARY | 2022-04-22 08:31 | XMS_ITS | Encounter Summary ---
:[address] [facility] Address [address] [place] [address] Care Team Providers Name Role Phone Marah Khalil NEHEMIAH Primary Care Provider Encounter Details Date Type Department Care Team Description 09/05/2013 Phlebotomy Only [facility], Hyperprolac tinemia [place] [facility] - [facility] Irregular emilie ods/menstrual cycles; [place] Dysmenorrhea; [address] Female infert ility associated with anovulation; Ave Female infertility [place] [address] Social History Tobacco Use Types Packs/Day Years Used Date Never Smoker Smokeless Tobacco: Never Used Alcohol Use Standard Drinks/Week Comments No 0 (1 standard drink = 0.6 oz pure alcoho l) Sex Assigned at Date Recorded Not on file documented as of this encounter Plan of Treatment Not on filedocumented as of this encounter Procedures Procedure Name Priority Date/Time Associated Diagnosis Comme nts ANTIMULLERIAN Routine 09/05/2013 10:54 Hyperprolactinemia Resu lts for HORMONE ([facility]) EST ([facility] this procedure REPROSOURCE Irregular are in the periods/menstrua l cycles results Dysmenorrhea section. Female infertility associated with anovulation Female infertility of unspecified origin PROLACTIN Routine 09/05/2013 10:54 Hyperprolactinemia Resul ts for EST ([facility] this procedure Irregular are in the periods/menstrua l cycles results Dysmenorrhea section. Female infertility associated with anovulation Female infertility of unspecified origin RUBELLA IGG ANTIBODY Routine 09/05/2013 10:54 Hyperprolactinem ia Results for EST ([facility] this procedure Irregular are in the periods/menstrua l cycles results Dysmenorrhea section. Female infertility associated with anovulation Female infertility of unspecified origin VARICELLA IGG Routine 09/05/2013 10:54 Hyperprolactinemia Resu lts for ANTIBODY EST ([facility] this procedure Irregular are in the periods/menstrua l cycles results Dysmenorrhea section. Female infertility associated with anovulation Female infertility of unspecified origin TSH Routine 09/05/2013 10:54 Hyperprolactinemia Resul ts for EST ([facility] this procedure Irregular are in the periods/menstrua l cycles results Dysmenorrhea section. Female infertility associated with anovulation Female infertility of unspecified origin FSH Routine 09/05/2013 10:54 Hyperprolactinemia Resul ts for EST ([facility] this procedure Irregular are in the periods/menstrua l cycles results Dysmenorrhea section. Female infertility associated with anovulation Female infertility of unspecified origin documented in this encounter Results FSH (09/05/2013 10:54 EST) Pathologist Sig nature FSH 2.6 mIU/ml [facility] Comment: Follicular: 2-11 Mid-Cycle Peak: 3.4-35 Luteal: 1-9 Postmenopausal: 25-120 Specimen Blood specimen (specimen) Performing Organization Address City/[facility]/ZIP Code Phon e Number [facility] [address] [place] [address] SERVICES [facility] [address] [place] [address] PROLACTIN (09/05/2013 10:54 EST) Pathologist Sig nature Prolactin 6.7 ng/ml [facility] Comment: Non-: 2.8-29.2 : 9.7-208.5 Post Menopausal: 1.8-20.3 Specimen Blood specimen (specimen) Performing Organization Address City/[facility]/ZIP Code Phon e Number [facility] [address] [place] [address] SERVICES [facility] [address] [place] [address] ANTIMULLERIAN HORMONE ([facility]) REPROSOURCE (09/05/2013 10:54 EST) Pathologist Sig nature [facility] Result Anti Mullerian Hormone = 1.53 ng/mL [facility] Comment: See Pathology Scanned Report in PRISM. Assayed at [facility], [place], [place] Specimen Blood specimen (specimen) Performing Organization Address [facility]/ZIP Code Phon e Number [facility] [address] [place] [address] SERVICES [facility] [address] [place] [address] VARICELLA IGG ANTIBODY (09/05/2013 10:54 EST) Varicella IgG Ab Interpretation: Positive [facility] Comment: Presence of detectable Varicella Zoster virus IgG antibodies. Specimen Blood specimen (specimen) Performing Organization Address [facility]/ZIP Code Phon e Number [facility] [address] [place] [address] SERVICES [facility] [address] [place] [address] RUBELLA IGG ANTIBODY (09/05/2013 10:54 EST) Pathologist Sig nature Rubella IgG Ab Positive [facility] Comment: Positive results suggest immunity to Rubella infection. Specimen Blood specimen (specimen) Performing Organization Address [facility] Phon e Number [facility] [address] [place] [address] SERVICES [facility] [address] [place] [address] TSH (09/05/2013 10:54 EST) Pathologist Sig nature TSH 3.05 0.35 - 5.00 uIU/ml [facility] Specimen Blood specimen (specimen) Performing Organization Address [facility] Phon e Number [facility] [address] [place] [address] SERVICES [facility] [address] [place] [address] documented in this encounter Visit Diagnoses Diagnosis Hyperprolactinemia (HCC-CMS) (HCC) Other and unspecified anterior pituitary hyperfunction Irregular periods/menstrual cycles Irregular menstrual cycle Dysmenorrhea Female infertility associated with anovu lation Female infertility of unspecified origin documented in this encounter Care Teams Software Recruiter Relationship Specialty Start Date End Date Marah Khalil FNP PCP - General 12/18/08 09/11/15 4 [place] [phone] documented as of this encounter
--- OUTSIDE RECORDS SUMMARY | 2022-04-22 08:31 | XMS_ITS | Encounter Summary ---
:1980 Author Organization [facility] Address [address] [place] [address] Care Team Providers Name Role Phone Marah Khalil Primary Care Provider Encounter Details Date Type Department Care Team Description 02/06/2015 Hospital Encounter [facility] - S Unknown, Pro Luis knight MD [address] [facility] [phone] [place] [address] (Work) [phone] Social History Tobacco Use Types Packs/Day Years [...] 12/03/2013 tablet cycle days 5 through 9.. bromocriptine (PARLODEL) take 2 tablets by 180 Tab 3 06/0207/01/2015 2.5 mg tablet mouth at bedtime. documented as of this encounter Discharge Disposition Disposition Code Departure Means Destination Home or Self [facility] documented in this encounter Plan of Treatment Not on filedocumented as of this encounter Visit Diagnoses Not on filedocumented in this encounter Care Teams State Assessed Properties Director Relationship Specialty Start Date End Date Marah Khalil FNP PCP - General 12/18/08 09/11/15 [address] [place] [phone] documented as of this encounter
--- OUTSIDE RECORDS SUMMARY | 2022-04-22 08:32 | XMS_ITS | Encounter Summary ---
:1980 Author Organization [facility] Address [address] [place] [address] Care Team Providers Name Role Phone Marah Khalil NEHEMIAH Primary Care Provider Encounter Details Date Type Department Care Team Description 01/19/2011 Results Only [facility] Silvano Pena MD Medicine & Infertility [address] [place] [address] [address] [facility] [id number] [place] [address] Social History Tobacco Use Types [...] Diagnosis Comme nts PAP TEST- RESULT Routine 01/19/2011 0:00 EDT Resu lts for this ONLY procedure are i n the results section. documented in this encounter Results PAP TEST- RESULT ONLY (01/19/2011 0:00 EDT) Pathology Report: CYTOPATHOLOGY REPORT ? [facility] Reports generated via electr onic interface contain original data; ? however they are lacking the format of the original report. ? Caution should be taken when reading/interpreting unformatted reports. ? Name: ? MERVIN WILEY ANDER L ? Accession #: ? [id number] ? : ? 1980 (Age: 30) ??F ?Collect Date: ? 01/19/2011 ? Location: ? [facility] ? Receive Date: ? 01/20/2011 ? Provider: SILVANO H DIANA M D ? Copy to: ? Final Report ? SPECIMEN ADEQUACY ? Satisfactory for Eval uation ? - transformation zone compon ent present ? - scant squamous epithelial component secondary to excessive blood ? GENERAL CATEGORIZATION ? Negative for Intraepi thelial Lesion or Malignancy ? Last Menstural Period: 01/17 / ? Specimen/Source: ??Pap Test, Cervix/Endocervix, ThinPrep Imaging System with ? manual evaluation ? Document reviewed and electr onically signed by: ? Sunshine Diogo, CT( CP) ? Report ??Date: 06/29/ 2011 10:28 ? HPV with Pap Test ? Date Ordered: ? 0 01/27/2011 ? Status: ?? Signed Out ?Date Complete: ? 02/02/2011 ? By: ??System Interface ? Date Reported: ? 02/02/2011 ? Interpretation ? RESULT: Negative for HPV typ es 16, 18, 31, 33, 35, 39, 45, 51, 52, ? 56, 58, 59, and 68. ? Comments ? Document reviewed and electr onically signed by: ? System Interface ? Report date: 07/05/20 11 ? By the signature above, the attending physician certifies that he/she has ? personally conducted a gross and/or microscopic examination of the described ? specimens and rendered or co nfirmed the above diagnosis. ? End of Report ? Specimen Performing Organization Address City/State/ZIP Code Phon e Number [facility] [address] [place] [address] SERVICES [facility] [address] [place] [address] documented in this encounter Visit Diagnoses Not on filedocumented in this encounter Care Teams Private Branch Exchange Service Advisor Relationship Specialty Start Date End Date Marah Khalil FNP PCP - General 12/18/08 09/11/15 [address] [place] [phone] documented as of this encounter
--- OUTSIDE RECORDS SUMMARY | 2022-04-22 08:32 | XMS_ITS | Encounter Summary ---
:1980 Author Organization [facility] Address [address] [place] [address] Care Team Providers Name Role Phone Marah Khalil NEHEMIAH Primary Care Provider Reason for Visit Reason Comments Infertility Pt here for injection techni que class. Encounter Details Date Type Department Care Team Description 01/26/2011 Nurse Only [facility] Center Reproductive Unknown, Provider, Medicine & Infertility Center Ishmael Meadows MD [address] [place] [address] - [facility] Nurse, MS AlbertW [address] [place], [place] [address] Social History Tobacco Use Types Packs/Day Years Used Date Never Smoker Alcohol Use Standard Drinks/Week Comments No 0 (1 standard drink = 0.6 oz pure alcoho l) Sex Assigned at Date Recorded Not on file documented as of this encounter Progress Notes Gina Henderson RN - 02/11/2011 1054 EDT Intrauterine Insemination Cycle number: #1 Plan:cc/hcg/iui 1.) Call from patient - Date:02/09/11 Time:0800 Previous IUI:no: Please complete: a.) Attended injection site technique class:yes b.) Pre-certified:yes c.) Consent signed by patient & patient's partner to use specimen:yes d.) Aware of current costs:yes RXD:no Labs up to date:yes Consent up to date:yes *All labs and consent must be current to proceed Clomid/HCG surge 2.) Last Menstrual Period: 02/09/11 WNL?:Yes 3.) Proceed:yes A.) Clomid:50mg(50mg 1 tablets) po qd. Cycle days 5-9 5 tablets 3 refills called into [facility] C.) Human Chorionic Gonadotropin (HCG), novarel, pregnyl, or ovidrel 10,000 International Unit mix in 1 1/2 ml of diluent SQx1 as directed, 1 vial(s) 1 refills called into 3 pharmacy D.) USF scheduled cycle day 02/19/11 Date:11 Gina Henderson RN Candy Pineda RN - 01/26/2011 0810 EDT [facility] Injection Technique Class Goal: Participants will verbalize understanding and demonstrate correct sterile injection techniques. Nursing Diagnosis: Injection Technique Deficit S: Patient presents with diagnosis of infertility requesting instruction of injection technique. O: Learning objectives: _x_ Participants are aware of needed supplies: Supplies: -Vial of HCG (powdered) -Extra needle 12/06?? -Vial of Diluent -Alcohol swabs -3 cc syringe with needle -Band-Aid _x_ Participants demonstrate ability to reconstitute HCG as outlined by the following steps: 1) Wash hands and assemble supplies. 2) Remove plastic flip top from both vials and swab the rubber stoppers with alcohol. 3) Draw air into syringe by pulling out the plunger to the 1 ?? cc oliver. Inject the air into the diluent vial. Without withdrawing the needle, turn the diluent vial upside down and withdraw 1 ?? cc of diluent into the syringe. 4) Remove filled syringe and needle from diluent vial and inject into the HCG vial. Push the plungerdown until all the diluent is in the vial. 5) Leaving the needle in the vial, agitate or shake gently until powder is dissolved. 6) When powder is dissolved, withdraw entire contents of vial into syringe. You will be able to drawthe 1 ?? cc of HCG into the syringe. 7) Remove air bubbles from the syringe and change needles before injecting HCG to minimize the possibility of irritation. _x_ Participants can select and prepare the Injection Site: The lateral aspect of either thigh is the best area to give a subcutaneous (SC) injection. _x_ Participants verbalize and understand the steps for administering the injection: S/C INJECTION INSTRUCTIONS: 1) Prepare an area for the injection on the lateral aspect of either thigh. Pinch up the skin between your index finger and thumb, cleanse with alcohol, and allow time for the skin to dry. 2) Hold syringe at a 90-degree angle to the skin and insert the entire needle quickly into the thigh. 3) When ready to inject the solution, push the plunger with a slow, steady motion. 4) Gently withdraw the needle and cover the injection site with sterile cotton and apply a small amount of pressure until the bleeding stops. If necessary, cover the site with a Band-Aid to prevent anyblood from getting on underclothes. _x_ Participants verbalize understanding of: _x_ CC/HCG/IUI __ CC/HCG/RXD __x Protocol/Plan _x Clinic visits and cost/timing of medication and insemination __x Participants will be informed of correct needle disposal. A: __x Patient adequately verbalizes understanding of injection techniques and complete return demonstration. __ Other: P: _x_Patient to proceed with CC/HCG/IUI or CC/HCG/RXD per MD plan __ Other: _x_ Precertification done __ Fee Sheet given Nurse Signature:Candy Kimbrough RN [facility] Injection Technique Class Goal: Participants will verbalize understanding and demonstrate correct sterile injection techniques. Nursing Diagnosis: Injection Technique Deficit S: Patient presents with diagnosis of infertility requesting instruction of injection technique. O: Learning objectives: __ Participants are aware of needed supplies: Supplies: -Vial of HCG (powdered) -Extra needle 12/06?? -Vial of Diluent -Alcohol swabs -3 cc syringe with needle -Band-Aid __ Participants demonstrate ability to reconstitute HCG as outlined by the following steps: 1) Wash hands and assemble supplies. 2) Remove plastic flip top from both vials and swab the rubber stoppers with alcohol. 3) Draw air into syringe by pulling out the plunger to the 1 ?? cc oliver. Inject the air into the diluent vial. Without withdrawing the needle, turn the diluent vial upside down and withdraw 1 ?? cc of diluent into the syringe. 4) Remove filled syringe and needle from diluent vial and inject into the HCG vial. Push the plungerdown until all the diluent is in the vial. 5) Leaving the needle in the vial, agitate or shake gently until powder is dissolved. 6) When powder is dissolved, withdraw entire contents of vial into syringe. You will be able to drawthe 1 ?? cc of HCG into the syringe. 7) Remove air bubbles from the syringe and change needles before injecting HCG to minimize the possibility of irritation. __ Participants can select and prepare the Injection Site: The lateral aspect of either thigh is the best area to give a subcutaneous (SC) injection. __ Participants verbalize and understand the steps for administering the injection: S/C INJECTION INSTRUCTIONS: 5) Prepare an area for the injection on the lateral aspect of either thigh. Pinch up the skin between your index finger and thumb, cleanse with alcohol, and allow time for the skin to dry. 6) Hold syringe at a 90-degree angle to the skin and insert the entire needle quickly into the thigh. 7) When ready to inject the solution, push the plunger with a slow, steady motion. 8) Gently withdraw the needle and cover the injection site with sterile cotton and apply a small amount of pressure until the bleeding stops. If necessary, cover the site with a Band-Aid to prevent anyblood from getting on underclothes. __ Participants verbalize understanding of: __ CC/HCG/IUI __ CC/HCG/RXD __ Protocol/Plan __ Clinic visits and cost/timing of medication and insemination __ Participants will be informed of correct needle disposal. A: __ Patient adequately verbalizes understanding of injection techniques and complete return demonstration. __ Other: P: __Patient to proceed with CC/HCG/IUI or CC/HCG/RXD per MD plan __ Other: __ Precertification done __ Fee Sheet given Nurse Signature: documented in this encounter Miscellaneous Notes Scanned Note-Null - [facility] [place] - 01/27/2011 0853 EDT documented in this encounter Plan of Treatment Not on filedocumented as of this encounter Visit Diagnoses Not on filedocumented in this encounter Care Teams Vice President Of Software Development Relationship Specialty Start Date End Date Marah Khalil FNP PCP - General 12/18/08 09/11/15 [address] [place] [phone] documented as of this encounter
--- OUTSIDE RECORDS SUMMARY | 2022-04-22 08:32 | XMS_ITS | Encounter Summary ---
:1980 Author Organization [facility] Address [address] [place] [address] Care Team Providers Name Role Phone Marah Khalil Primary Care Provider Reason for Visit Reason Onset Date Comments Vaginal Bleeding 06/09/2010 pt called to report vaginal spotting while having intercourse and has continued. Encounter Details Date Type Department Care Team Description [facility]ina Henderson g[facility] (pt Medicine & Infertility Oliverio, RN ray d to report [facility] vaginal spotting while [address] [place] [address] has continued.) [phone] Social History Tobacco Use Types Packs/Day Years Used Date Never Assessed Sex Assigned at Date Recorded Not on file documented as of this encounter Miscellaneous Notes Telephone Encounter - Gina Henderson RN - 06/09/2010 0943 EST Pt had not had intercourse for 9 months. was recently home on leave from the . She noticed spotting with intercourse. The spotting has continued and she is Cycle day 21. I am having herget a UPT tomorrow Am. I will let you know the results and we can plan from there. Gina Henderson RN documented in this encounter Plan of Treatment Not on filedocumented as of this encounter Visit Diagnoses Not on filedocumented in this encounter Care Teams Sequins Stringer Relationship Specialty Start Date End Date Marah Khalil FNP PCP - General 12/18/08 09/11/15 4 [address] [place], [place] [phone] documented as of this encounter
--- OUTSIDE RECORDS SUMMARY | 2022-04-22 08:32 | XMS_ITS | Encounter Summary ---
:1980 Author Organization [facility] Address [address] [place] [address] Care Team Providers Name Role Phone Marah Khalil NEHEMIAH Primary Care Provider Encounter Details Date Type Department Care Team Description 11/05/2008 Before [facility] Silvano Pena, Converted Visit Reproductive Medicine MD [facility] - [address] [place] [address] [address] [place], [place] [phone] Social History Tobacco Use Types Packs/Day Years Used Date Never Assessed Sex Assigned at Date Recorded Not on file documented as of this encounter Plan of Treatment Not on filedocumented as of this encounter Procedures Procedure Name Priority Date/Time Associated Diagnosis Comme nts CYTOPATHOLOGY Routine 11/05/2008 0:00 EDT Results for this procedure are i n the results section . documented in this encounter Results CYTOPATHOLOGY (11/05/2008 0:00 EDT) Pathology Report: CYTOPATHOLOGY REPORT ? [facility] Reports generated via electr onic interface contain original data; ? however they are lacking the format of the original report. ? Caution should be taken when reading/interpreting unformatted reports. ? Name: ? MERVIN WILEY ? Accession #: ? [id number] ? : ? 1980 (Age: 27) ??F ?Collect Date: ? 11/05/2008 ? Location: ? [facility] ? Receive Date: ? 11/07/2008 ? Provider: ?SILVANO HERNANDEZ MD ? Copy to: ? Specimen/Source: ? Pap Test, Cervix/Endocervix, ThinPrep Imaging System ? with manual evaluation ? Last Menstrual Period: ? 03/17/09 ? Other: ? HPVA - HPV testing requested if ASC-US on the current ThinPrep Pap test. ? SPECIMEN ADEQUACY ? Satisfactory for Eval uation ? - transformation zone compon ent present ? GENERAL CATEGORIZATION ? Negative for Intraepi thelial Lesion or Malignancy ? Document reviewed and electr onically signed by: ? Ok Stumler, CT( CP) ? Report Date: ??04/13/ 2009 11:43 ? End of Report ? Specimen Performing Organization Address City/State/ZIP Code Phon e Number [facility] [address] [place] [address] SERVICES [facility] [address] [place] [address] documented in this encounter Visit Diagnoses Not on filedocumented in this encounter Care Teams Rental Coordinator Relationship Specialty Start Date End Date Marah Khalil FNP PCP - General 12/18/08 09/11/15 [address] [place] [phone] documented as of this encounter
--- OUTSIDE RECORDS SUMMARY | 2022-04-22 08:32 | XMS_ITS | Encounter Summary ---
:1980 Author Organization [facility] Address [address] [place] [address] Care Team Providers Name Role Phone Marah Khalil NEHEMIAH Primary Care Provider Encounter Details Date Type Department Care Team Description 12/19/2008 Orders Only [facility] Saúl Pena MD Medicine & Infertility [address] [place] [address] [address] [facility] [id number] [place] [address] Social History Tobacco Use Types Packs/Day Years Used Date Never Assessed Sex Assigned at Date Recorded Not on file documented as of this encounter Plan of Treatment Not on filedocumented as of this encounter Procedures Procedure Name Priority Date/Time Associated Comments Diagnosis PRINCIPAL STATISTICAL SCIENTIST US HYSTEROSONOGRAPHY 12/19/2008 10:29 Results for this EDT procedure are i n the results section. documented in this encounter Results PRINCIPAL STATISTICAL SCIENTIST US HYSTEROSONOGRAPHY (12/19/2008 10:29 EDT) Anatomical Region Laterality Modality Other Specimen Narrative [facility] RADIOLOGY - 12/24/2008 7:57 EDT TRANSVAGINAL ULTRASOUND AND SONOHYSTEROG MARIZOL: ??12/19/2008 INDICATION: ?? This is a 27-year-old wit h infertility and the suggestion of endometrial polyp on hyste rosalpingogram. FINDINGS: ?? The uterus is normal sized measuring 8.5 x 4.2 x 4.9 cm sagittal x AP x transverse respectively. ??The endometrial stripe measured 10.6mm six days following the o nset of her last menstrual period. ??The endometrium was slightly t hickened and irregular. ??The myometrium was normal. ??The right ovary measured 3.3 x 2.8 x 1.8 cm and contained a complex cyst measuring 1 9 x 15 x 15 mm, probably representing a resolving corpus luteum. ??The left ovary measured 3.1 x 2.1 x 2 cm. ??There was no free fluid in the cul-de-sac. ??Because of the suggestion of irregularity in the en dometrial stripe, a sonohysterogram was carried out. ??The s onohysterogram catheter was inserted without difficulty and saline i nfused. ??Three endometrial polyps were identified across the length of the endometrial cavity measuring 9 x 13 x 5 mm, 3.5 x 8 x 4 mm, and 13 x 8 x 3 mm. ?? INTERPRETATION: ??Endometrial polyps. PLAN: ??The patient will follow up with Dr. Pena. D: ??12/19/2008 T: ??12/19/2008/dw Procedure Note 12/24/2008 TRANSVAGINAL ULTRASOUND AND SONOHYSTEROG MARIZOL: 12/19/2008 INDICATION: This is a 27-year-old with i nfertility and the suggestion of endometrial polyp on hyste rosalpingogram. FINDINGS: The uterus is normal sized bisi suring 8.5 x 4.2 x 4.9 cm sagittal x AP x transverse respectively. The endometrial stripe measured 10.6mm six days following the o nset of her last menstrual period. The endometrium was slightly thi ckened and irregular. The myometrium was normal. The right ovary m easured 3.3 x 2.8 x 1.8 cm and contained a complex cyst measuring 1 9 x 15 x 15 mm, probably representing a resolving corpus luteum. The left ovary measured 3.1 x 2.1 x 2 cm. There was no free fluid in the cul-de-sac. Because of the suggestion of irregularity in the en dometrial stripe, a sonohysterogram was carried out. The son ohysterogram catheter was inserted without difficulty and saline i nfused. Three endometrial polyps were identified across the length of the endometrial cavity measuring 9 x 13 x 5 mm, 3.5 x 8 x 4 mm, and 13 x 8 x 3 mm. INTERPRETATION: Endometrial polyps. PLAN: The patient will follow up with Dr Harry Pena. /alden Performing Organization Address City/State/ZIP Code Phon e Number [facility] RADIOLOGY MATERNAL MEDICINE [facility]OLOGY documented in this encounter Visit Diagnoses Not on filedocumented in this encounter Care Teams Eastern Philosophy Professor Relationship Specialty Start Date End Date Marah Khalil FNP PCP - General 12/18/08 [address] [place] [phone] documented as of this encounter
--- OUTSIDE RECORDS SUMMARY | 2022-04-22 08:32 | XMS_ITS | Encounter Summary ---
:1980 Author Organization [facility] Address [address] [place] [address] Care Team Providers Name Role Phone Marah Khalil NEHEMIAH Primary Care Provider Reason for Visit Reason Onset Date Comments 02/22/2011 Encounter Details Date Type Department Care Team Description 02/22/2011 Orders Only [facility] Center Reproductive [facility] (Primary Dx) Medicine & Infertility ARANZA [place] [employer] [place] [address] [place] [address] Social History Tobacco Use Types Packs/Day Years Used Date Never Smoker Alcohol Use Standard Drinks/Week Comments No 0 (1 standard drink = 0.6 oz pure alcoho l) Sex Assigned at Date Recorded Not on file documented as of this encounter Plan of Treatment Not on filedocumented as of this encounter Procedures Procedure Name Priority Date/Time Associated Comments Diagnosis CATALYST OPERATOR US OB FIRST Routine 03/15/2011 13:23 Results for this TRIMESTER EDT procedure are i n TRANSVAGINAL the results section. documented in this encounter Results CATALYST OPERATOR US OB FIRST TRIMESTER TRANSVAGINAL (03/15/2011 13:23 EDT) Anatomical Region Laterality Modality Other Specimen Narrative [facility] RADIOLOGY - 03/15/2011 15:15 EDT Indication: dating. History: Age: 30 years. Dating: Current Scan on: 03/15/2011 EDC: 012 GA by current scan: 7w6d Best Overall Assessment: 03/15/2011 EDC: 10/26/2011 Assessed GA: 7w6d The calculation of the gestational age b y current scan was based on CRL. The Best Overall Assessment is based on the ultrasound examination on 03/15/2011. General Evaluation: heart activity: Present. hea rt rate: 153 bpm. Early Assessment: Biometry: CRL 15.3 mm 92nd% 7w6d (7w2d to 8w4d) Gestational Sac present. Yolk Sac presen t. Embryo present. Heart activity: Present. Heart rate: 153 bpm. Maternal Structures: Right Ovary: Right Ovary size: 37 mm x 16 mm x 24 mm. Volume: 7.4 ml. Left Ovary: Left Ovary size: 18 mm x 19 mm x 15 mm. Volume: 2.7 ml. Cul de Sac / Pouch of Hakeem: no free f luid visible. Report Summary: Impression: [id number] First trimester obstet rical US, transvaginal This is a irizarry gestation. CRL is consistent with menstrual dating. A normal heart beat and yolk sac were noted. Recommendations: Follow-up as clinically indicated. Procedure Note 03/15/2011 Indication: dating. History: Age: 30 years. Dating: Current Scan on: 03/15/2011 EDC: 012 GA by current scan: 7w6d Best Overall Assessment: 03/15/2011 EDC: 10/26/2011 Assessed GA: 7w6d The calculation of the gestational age b y current scan was based on CRL. The Best Overall Assessment is based on the ultrasound examination on 03/15/2011. General Evaluation: heart activity: Present. hea rt rate: 153 bpm. Early Assessment: Biometry: CRL 15.3 mm 92nd% 7w6d (7w2d to 8w4d) Gestational Sac present. Yolk Sac presen t. Embryo present. Heart activity: Present. Heart rate: 153 bpm. Maternal Structures: Right Ovary: Right Ovary size: 37 mm x 16 mm x 24 mm. Volume: 7.4 ml. Left Ovary: Left Ovary size: 18 mm x 19 mm x 15 mm. Volume: 2.7 ml. Cul de Sac / Pouch of Hakeem: no free f luid visible. Report Summary: Impression: [id number] First trimester obstet rical US, transvaginal This is a irizarry gestation. CRL is consistent with menstrual dating. A normal heart beat and yolk sac were noted. Recommendations: Follow-up as clinically indicated. Performing Organization Address City/State/ZIP Code Phon e Number [facility] RAD[facility] MATERNAL MEDICINE [facility] RADIOLOGY documented in this encounter Visit Diagnoses Diagnosis - Primary state, incidental documented in this encounter Care Teams Shredder Tender Peat Relationship Specialty Start Date End Date Marah Khalil FNP PCP - General 12/18/08 09/11/15 4 [place] [place] [phone] documented as of this encounter
--- OUTSIDE RECORDS SUMMARY | 2022-04-22 08:32 | XMS_ITS | Encounter Summary ---
:1980 Author Organization [facility] Address [address] [place] [address] Care Team Providers Name Role Phone Marah Khalil NEHEMIAH Primary Care Provider Reason for Visit Reason Comments Pituitary Abnormality f/u Encounter Details Date Type Department Care Team Description 06/01/2011 Office Visit [facility] Marc Saunders actinoma Endocrinology - Felix Hernandez, ([facility]) (Primary Dx) [facility] 62 [facility] [address] [phone] [place] [address] Social History Tobacco Use Types Packs/Day Years Used Date Never Smoker Alcohol Use Standard Drinks/Week Comments No 0 (1 standard drink = 0.6 oz pure alcoho l) Sex Assigned at Date Recorded Not on file documented as of this encounter Last Filed Vital Signs Vital Sign Reading Time Taken Comments Blood Pressure 116/64 06/01/2011 1110 EDT Pulse 76 06/01/2011 1110 EDT Temperature - - Respiratory Rate - - Oxygen Saturation - - Inhaled Oxygen Concentration - - Weight 70.3 kg (155 lb) 06/01/2011 1110 EDT Height 171.5 cm (5' 7.5) 06/01/2011 1110 EDT Body Mass Index 23.92 06/01/2011 1110 EDT documented in this encounter Patient Instructions Patient InstructionsFelix Saunders, DO - 06/01/2011 11:[address] Saunders will inform you of your lab results by phone or mail within 2 weeks. If you do not receive your test results after two weeks please contact the office. 2. Call with questions, concerns or change in symptoms. 3. 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 She was first diagnosed in 06/2005 via MRI and presentation of galactorrhea and oligomenorrhea. She had been on Dostinex but was changed to bromocriptine as she was attempting to become . Most recent visit to the endocrine clinic was 06/15/2009. Please see that note for full details. Her returned home from duty in [facility] in 07/2010. The patient had a spontaneous in late 03/2011 requiring aD and C. She discontinue her bromocriptine, as instructed, when she found out she was . She is back on her bromocriptine at this point and reports compliance with this daily medication. She physically feels well but is having some problems emotionally after the spontaneous . She deniesheadaches, nausea or vomiting. No galactorrhea or orthostatic changes. Her menstrual cycles are regular both in frequency and duration. She reports no vision changes. PAST MEDICAL HISTORY: Reviewed as documented in the electronic medical record. MEDICATIONS: Reviewed as documented in the electronic medical record. ALLERGIES: Reviewed as documented in the electronic medical record. OBJECTIVE: Blood pressure is 116/64, pulse is 76. Weight is 105 pounds, BMI is 23.9. In general, thepatient is a pleasant young white female in no acute distress. HEENT: Eyes: No lid lag or periorbital edema noted. Gross testing of her visual schuster was normal. Respiratory: Lungs clear to auscultation bilaterally. Cardiovascular: Heart is regular without murmurs, rubs or gallops. GI: Abdomen is soft, nontender, nondistended, good bowel sounds in all 4 quadrants. Extremities: No clubbing, cyanosis or edema. Strength is 5/5 and equal bilaterally. Neuro: DTRs are +2/4 and equal bilaterally in all 4 extremities without a resting tremor. Psych: The patient is A and O x3. Speech and thoughts are appropriate, appears well groomed, makes good eye contact. Having some appropriately emotional discussing her spontaneous abortions. ASSESSMENT: Mrs Cowan has a 0.4 cm prolactinoma with a stable prolactin level as of 06/15/2010, is currently on bromocriptine 5 mg daily and reports no significant adverse events from this medication. We will check her prolactin level today. Encouraged the patient again to discontinue her bromocriptine when she becomes . We will readdress starting her back on the medication, if at all, after she is done . Given the fact she has been on medication for greater than 3 years. Sheis due for a trial off the medication, but this will have to be worked into her family planning, etc. PLAN: 1. Continue bromocriptine 5 mg daily. 2. We will check a prolactin level today and inform the patient of those results. 3. Follow up in 12 months. 4. Call the office if they have any questions or concerns. Electronically Signed by Felix Saunders DO 06/15/2011 09:14 Felix Saunders DO - Felix Saunders DO - [facility] Job ID: SM Doc ID: [id number] Ext Doc ID: [id number] cc: NEHEMIAH Wilson Felix Fried DO - 06/01/2011 1154 EDT This office note has been dictated. documented in this encounter Plan of Treatment Not on filedocumented as of this encounter Procedures Procedure Name Priority Date/Time Associated Diagnosis Comme nts PROLACTIN Routine 06/01/2011 11:43 Microprolactinoma Result s for this EDT ([facility]) procedure are i n the results section. documented in this encounter Results PROLACTIN (06/01/2011 11:43 EDT) Pathologist Sig nature Prolactin 7.5 ng/ml [facility] Comment: Non-: 2.8-29.2 : 9.7-208.5 Post Menopausal: 1.8-20.3 Specimen Blood specimen (specimen) Performing Organization Address City/State/ZIP Code Phon e Number [facility] [address] [place] [address] SERVICES [facility] [address] [place] [address] documented in this encounter Visit Diagnoses Diagnosis Microprolactinoma ([facility]) ([facility]) - Prim fatuma Benign neoplasm of pituitary gland and c raniopharyngeal duct (pouch) documented in this encounter Discontinued Medications Medication Sig Discontinue Reason Start Date End Date chorionic Inject 10,000 Units Therapy completed 02/11/201108/2010 gonadotropin, human into the skin once. (PREGNYL) 10,000 unit Indications: OVULATION injectionIndications: STIMULATION ovulation stimulation clomiPHENE (CLOMID) 50 Take 1 Tab by mouth Therapy completed 201006/01/2011 mg tablet daily. documented as of this encounter Care Teams Montessori Toddler Teacher Relationship Specialty Start Date End Date Marah Khalil FNP PCP - General 12/18/08 09/11/15 4 [place] [place] [phone] documented as of this encounter
--- OUTSIDE RECORDS SUMMARY | 2022-04-22 08:32 | XMS_ITS | Encounter Summary ---
:1980 Author Organization [facility] Address [address] [place] [address] Care Team Providers Name Role Phone Marah Khalil Primary Care Provider Reason for Visit Reason Onset Date Comments Other 04/23/2011 Encounter Details Date Type Department Care Team Description 04/23/2011 Telephone [facility] Center Reproductive Medicine Carina Kimbrough RN Other & Infertility Center - [facility] [address] [place] [address] Social History Tobacco Use Types Packs/Day Years Used Date Never Smoker Alcohol Use Standard Drinks/Week Comments No 0 (1 standard drink = 0.6 oz pure alcoho l) Sex Assigned at Date Recorded Not on file documented as of this encounter Miscellaneous Notes Telephone Encounter - Candy Kimbrough RN - 04/23/2011 0916 EDT Call from pt. She wanted Dr. Pena to know that she had a miscarriage/D+C 2 1/2 weeks ago. She hada follow up visit with her OB provider post D+C. She just wanted our office to know this informationand that she will be resuming attempts at conception in approx. 6 months. documented in this encounter Plan of Treatment Not on filedocumented as of this encounter Visit Diagnoses Not on filedocumented in this encounter Care Teams Quality Control Representative Relationship Specialty Start Date End Date Marah Khalil FNP PCP - General 12/18/08 09/11/15 4 [address] [place] [phone] documented as of this encounter
--- OUTSIDE RECORDS SUMMARY | 2022-04-22 08:32 | XMS_ITS | Encounter Summary ---
:1980 Author Organization [facility] Address [address] [place] [address] Care Team Providers Name Role Phone Marah Khalil NEHEMIAH Primary Care Provider Reason for Visit Reason Onset Date Comments Medications Refill 02/10/2011 LMP today Encounter Details Date Type Department Care Team Description 02/10/2011 Refill [facility] Center Reproductive Gina Henderson dications Refill (LMP Medicine & Infertility Oliverio, ARANZA today ) Center - [facility] [address] [place], [place] [id number] Social History Tobacco Use Types Packs/Day Years Used Date Never Smoker Alcohol Use Standard Drinks/Week Comments No 0 (1 standard drink = 0.6 oz pure alcoho l) Sex Assigned at Date Recorded Not on file documented as of this encounter Ordered Prescriptions Prescription Sig Dispensed Refills Start Date End Date chorionic gonadotropin, Inject 10,000 Units 1 Units 3 06/01/2011 human (PREGNYL) 10,000 into the skin once. unit Indications: OVULATION injectionIndications: STIMULATION ovulation stimulation clomiPHENE (CLOMID) 50 Take 1 Tab by mouth 5 Tab 3 01/2906/01/2011 mg tablet daily. documented in this encounter Miscellaneous Notes Telephone Encounter - Gina Henderson RN - 02/10/2011 0824 EDT Intrauterine Insemination Cycle number: #1 Plan:cc/hcg/iui 1.) Call from patient - Date:02/10/11 Time:0800 Previous IUI:no: Please complete: a.) Attended injection site technique class:no b.) Pre-certified:yes c.) Consent signed by patient & patient's partner to use specimen:no d.) Aware of current costs:no RXD:no Labs up to date:yes Consent up to date:yes *All labs and consent must be current to proceed Clomid/HCG surge 2.) Last Menstrual Period: 02/10/11 WNL?:Yes 3.) Proceed:yes A.) Clomid:50mg(50mg 1 tablets) po qd. Cycle days 5-9 5 tablets 3 refills called into [facility] Rochelle CONTRERAS C.) Human Chorionic Gonadotropin (HCG), novarel, pregnyl, or ovidrel 10,000 International Unit mix in 1 1/2 ml of diluent SQx1 as directed, 1 vial(s) 3 refills called into [facility] D.) USF scheduled cycle day #10 Date:02/19/11 Gina Henderson RN documented in this encounter Plan of Treatment Not on filedocumented as of this encounter Visit Diagnoses Not on filedocumented in this encounter Discontinued Medications Medication Sig Discontinue Reason Start Date End Date chorionic Inject 10,000 Units Reorder 02/11/2011 02/12/20 11 gonadotropin, human into the muscle once. (PREGNYL) 10,000 unit Indications: OVULATION injectionIndications: STIMULATION ovulation stimulation documented as of this encounter Historical Medications This list may reflect changes made after this encounter. Medication Sig Dispensed Refills Start Date End Date chorionic gonadotropin, Inject 10,000 Units 0 02/11/2011 human (PREGNYL) 10,000 into the muscle once. unit Indications: OVULATION injectionIndications: STIMULATION ovulation stimulation added in this encounter Care Teams Jewel Sorter Relationship Specialty Start Date End Date Mraah Khalil FNP PCP - General 12/18/08 09/11/15 4 Junior [place] [phone] documented as of this encounter
--- OUTSIDE RECORDS SUMMARY | 2022-04-22 08:32 | XMS_ITS | Encounter Summary ---
:1980 Author Organization [facility] Address [address] [place] [address] Care Team Providers Name Role Phone Marah Khalil NEHEMIAH Primary Care Provider Encounter Details Date Type Department Care Team Description 08/12/2003 Office Visit [facility] - Alex Canales MD Maple conversion [address] [place] [address] [address], [place] [phone] (Wo rk) Social History Tobacco Use Types Packs/Day Years Used Date Never Assessed Sex Assigned at Date Recorded Not on file documented as of this encounter Progress Notes Alex Canales MD - 10/03/2009 0800 EST Emergency Department ??? Physician Summary Registration Date/Time 08/12/2003 15:10 Time Seen (16:00 PM). Arrived- By private vehicle. Historian- patient and family. HISTORY OF PRESENT ILLNESS Chief Complaint: HEADACHE and FEVER. This started last night at 1 AM dev nausea, fever. MCKEE prsent for 2 weeks. Is still present. It is described as similar to previous headaches, throbbing and diffuse.Described as a global headache. No neck pain. At its maximum, severity described as moderate. She has had nausea and vomiting. The patient was seen recently in the emergency department (2 weeks ago for similar symptoms.). REVIEW OF SYSTEMS The patient has had fever, muscle aches and a cough. No sinus pressure, ear pain, sore throat, skin rash or hesitancy. No frequent urination or urinary problems. All systems otherwise negative, except as recorded above. PAST HISTORY See nurses notes. Medications: See nurses notes. Allergies: See nurses notes. SOCIAL HISTORY Nonsmoker. ADDITIONAL NOTES The nursing notes have been reviewed. PHYSICAL EXAM Appearance: Alert. No acute distress. Signs: The vital signs have been reviewed. Eyes: Pupils equal, round and reactive to light. Eyes normal inspection. ENT: Ears normal. Nose normal. Neck: Normal inspection. Neck supple. (Neck supple with FROM). CVS: Normal heart rate and rhythm. Heart sounds normal. Respiratory: No respiratory distress. Breath sounds normal. o2 sat 99% RA Abdomen: Abdomen soft and nontender. No organomegaly. Back: Normal inspection. Skin: Normal skin color. Skin warm and dry. No rash. Extremities: Extremities exhibit normal ROM. No pedal edema. Neuro: Oriented X 3. Alert. Mood/affect normal. Speech normal. No motor deficit. No sensory deficit. LABS, X-RAYS, AND EKG Urinalysis: Clean-catch specimen. WBCs present (10-50). RBCs present (10-50). Many bacteria/hpf. PROGRESS AND PROCEDURES E.D. Course: 16:40 Drinking april mari 18:07. 18:07 Physical exam findings are improved. Symptoms much better. Discussed case with physician Dr. Vazquezviewed test results and need for additional work-up. Agreed upon treatment plan and need for patient follow-up. Patient/family counseled. Old medical recordsordered. Disposition: Discharged home in good condition. Discharged home in good condition. CLINICAL IMPRESSION Pyelonephritis. INSTRUCTIONS Take Tylenol (Acetaminophen) or Motrin (Ibuprofen) as needed for fever control. Take medication according to label instructions. Do not work for two days. Drink lots of fluids. Warnings: GENERAL WARNINGS: Return or contact your physician immediately if your condition worsens or changes unexpectedly, if not improving as expected, or if other problems arise. Prescription Medications: Cipro 500 mg: every 12 hours for 14 days. No refills. Generic substitute OK. OTC Medications: Motrin (available over the counter): take according to label instructions. Follow-up: Follow up with Doctor Edmonds in 2 days. come back immediately if you start to vomit. Alex Canales M.D. (Electronically signed Alex Canales M.D. 08/12/200318:18) Physician's Clinical Report Emergency Department ??? Nursing Summary Registration Date/Time 08/12/2003 15:10 TRIAGE Initial Assessment Triage time 15:12 BP: 141 / 83 sitting HR: 142 RR: 20 Temp: 39.7 Alert. No acute distress. --15:14 Laura Rivera R.N. Medications (Oral Contraceptives). --15:14 Laura Rivera R.N. Allergies No known drug allergies. --15:14 Laura Rivera R.N. History Chief Complaint: (MCKEE and nausea with fever x 3 weeks. Told by MD to come in-may have meningitis). The patient has had fever and a cough. Reports muscle aches. (tylenol and ibuprofen prn). PAST HX: Negative. SOCIAL HX: Nonsmoker. Denies alcohol use. No report of abuse. Arrived by private vehicle and accompanied by family. Historian: patient. --15:14 Laura Rivera R.N. NURSING PROGRESS NOTES Progress Patient gowned. Head of bed elevated. Warming measures performed. The patient was positioned up in bed. Call light placed in reach. Side rails up x 1. Bed placed in lowest position. Brakes of bed on. Visitor at bedside. --15:39 Carlie Ballesteros IV started: #1 site, left antecubital space, 20g angiocath, using aseptic technique, with good bloodreturn; one attempt. Fluid - 1000 cc bag NS infusing; rate = wide open. --15:53 Feliciano Gonzalez R.N. Blood samples drawn by RN and sent to lab. Tubes drawn: red, green, purple, blue and tiger top. Total amount drawn was 20 cc. Blood drawn from peripheral IV site. Line flushed post blood draw with normal saline. --15:53 Feliciano Gonzalez R.N. Patient ready for evaluation- ED physician notified.--15:54 Feliciano Gonzalez R.N. (Pt. aware of need for Urine Sample). --15:54 Feliciano Gonzalez R.N. Temp: C 39.3 tympanic --15:59 Feliciano Gonzalez R.N. BENADRYL 25 mg diluted with IV fluid slow IVP. IV patency established. IV site checked: no pain, redness, or swelling. IV flushed thoroughly pre- and post- medication administration. Sedative drug warning given to the patient. COMPAZINE 10 mg diluted with 10cc slow IVP. IV patency established. IV site checked: no pain, redness, or swelling. IV flushed thoroughly pre- and post-medication administration. Sedative drug warning given to the patient. TORADOL 30 mg diluted with IV fluid slow IVP. IV patency established. IV site checked: no pain, redness, or swelling. IV flushed thoroughly pre- and post-medication administration. --16:20 Feliciano Gonzalez R.N. HR: 122 regular O2 saturation: 99 % room air --16:22 Feliciano Gonzalez R.N. Clean catch urine collected. Urine dip performed. Urine sample sent to lab for culture (Sg 1.020, pH5.5, KET 1+, BLO 2+, PRO 3+, NIT-positive, ROSANGELA 1+, all else negative). --17:09 Feliciano Gonzalez R.N. BP: 95 / 57 lying R arm auto HR: 102 regular RR: 18 Temp: C 37.3 tympanic O2 saturation: 98 % room air Patient reports current pain level as 0/10. Reassessment after fluids administered and medication administered. The patient reports has no complaints and the patient is resting quietly. Overall patient status is improved- the patient states feels better. Denies nausea or headache. --17:43 Feliciano Gonzalez R.N. The patient reports has no complaints and the patient is calm and resting quietly. Patient reports current pain level as 0/10. (Mother at bedside). --18:15 Javid Corcoran R.N. CIPRO 400 mg IVPB in D5W (pre-mix) over 1 hour, via IV pump. Allergic reaction warning given to patient. --18:25 Javid Corcoran R.N. (IV wrapped in kerlex). --18:49 Feliciano Gonzalez R.N. COMPAZINE 25 mg 1 to go home with for prn use [place]. Sedative drug warning given to the patient. --19:41 Feliciano Gonzalez R.N. IV / I&O Flowsheet IV site #1, location left antecubital space. IV patent. No redness or swelling at site. IV fluid started- #1 bag NS 1000 cc. Rate - wide open. --15:54 Feliciano Gonzalez R.N. IV site #1, location left antecubital space. IV patent. no redness at site. IV fluid bag #1 discontinued. IV fluid started- #2 bag NS 1000 cc. Rate - wide open. --16:48 Feliciano Gonzalez R.N. DISPOSITION / DISCHARGE Patient reports pain level on departure as 0/10. Condition at departure: improved. No barriers to learning present. Discharge instructions reviewed with the patient and family. Reviewed medication sideeffects, precautions, dosing and course; prescription (s) given to the patient. Reviewed referrals for followup (primary MD in 2 days). Work note given (no work for 2 days). --19:41 Feliciano Gonzalez R.N. Patient verbalized understanding. The patient was discharged home and accompanied by family. The patient left the Emergency Department ambulatory and via private vehicle. --19:42 Misha Atkins R.N., E.M.T. Chris Vanstone R.N. Michael Roy, R.N. Kathy Karg R.N. Locked/Released at 08/13/2003 9:26 by Becky Zimmerman R.N. documented in this encounter Plan of Treatment Not on filedocumented as of this encounter Visit Diagnoses Not on filedocumented in this encounter Care Teams Wire Harness Design Engineer Relationship Specialty Start Date End Date Marah Khalil FNP PCP - General 12/18/08 09/11/15 4 DIANE Barbosa [phone] documented as of this encounter
--- OUTSIDE RECORDS SUMMARY | 2022-04-22 08:32 | XMS_ITS | Encounter Summary ---
:1980 Author Organization [facility] Address [address] [place] [address] Care Team Providers Name Role Phone Marah Khalil Primary Care Provider Encounter Details Date Type Department Care Team Description 07/18/2007 Results Only [facility] - Emmy brooks, Provider, conversion [address] [place] [address] [place] [address] Social History Tobacco Use Types Packs/Day Years Used Date Never Assessed Sex Assigned at Date Recorded Not on file documented as of this encounter Plan of Treatment Not on filedocumented as of this encounter Procedures Procedure Name Priority Date/Time Associated Diagnosis Comme nts PROLACTIN Routine 07/18/2007 8:12 EST Results for this procedure are i n the results section . documented in this encounter Results PROLACTIN (07/18/2007 8:12 EST) Pathologist Sig nature Prolactin 14.8 ng/ml [facility] Comment: Non-: 2.8-29.2 : 9.7-208.5 Post Menopausal: 1.8-20.3 Specimen Performing Organization Address City/State/ZIP Code Phon e Number [facility] [address] [place] [address] SERVICES [facility] [address] [place] [address] documented in this encounter Visit Diagnoses Not on filedocumented in this encounter Care Teams Electric Crane Operator Relationship Specialty Start Date End Date Marah Khalil FNP PCP - General 12/18/08 09/11/15 4 DIANE Barbosa [phone] documented as of this encounter
--- OUTSIDE RECORDS SUMMARY | 2022-04-22 08:32 | XMS_ITS | Encounter Summary ---
:1980 Author Organization [facility] Address [address] [place] [address] Care Team Providers Name Role Phone Marah Khalil NEHEMIAH Primary Care Provider Encounter Details Date Type Department Care Team Description 06/25/2008 Before [facility] - Felix Saunders Converted Visit Maple conversion DO David (Maple) [address] [address] [place] [address] [place] [phone] (Wo rk) Social History Tobacco Use Types Packs/Day Years Used Date Never Assessed Sex Assigned at Date Recorded Not on file documented as of this encounter Progress Notes Felix Saunders Do, DO - 02/22/2009 0605 EDT DIVISION OF ENDOCRINOLOGY PROGRESS/FOLLOWUP NOTE - 06/25/2008 SUBJECTIVE Mrs. 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 She was first diagnosed in 06/2005 via MRI, after presenting with symptoms of galactorrhea and oligomenorrhea. She had been on a stable dose of Dostinexbut presented to our clinic on 06/25/2007, with mild galactorrhea. Her menstrual cycle was normal atthat time. She had also been trying to get for 2 to 3 months without success. Prolactin level on 06/20/2007 was in the high end of normal at 24.9. We actually changed her from Dostinex to bromocriptine as she was attempting to get . Repeat Prolactin level showed it to be down in the normal range at 14. She continues with regular periods over the last 14 months, stating that they were both regular in frequency and duration. She reports no headaches, vision changes or galactorrhea. She has not been able to become and is quite frustrated about this, and would like a referral to Reproductive Endocrinology. Her thyroid function tests were obtained in 06/2007, and were found to be normal. Her other pituitary hormones as expected were found to be normal. PAST MEDICAL HISTORY History of anxiety. 2. Microprolactinoma. MEDICATIONS Bromocriptine 2.5 mg p.o. daily. OBJECTIVE Physical exam: Blood pressure is 120/70, pulse is 104, weight is 176 pounds. She is 5 feet 8 inches tall giving her a BMI of 26.5. In general, patient is a pleasant, young white female in no acute distress. She appears her stated age. HEENT: Eyes: Pupils equal, round and reactive to light. Extraocularmuscles intact. There is no evidence of corneal abrasion bilaterally. Sclerae and conjunctivae are not injected. A nondilated funduscopic exam did not reveal any evidence of palpable edema, retinal abnormalities. She had grossly intact visual schuster. Neck supple without adenopathy. Thyroid is normal in size. No tenderness or nodules to palpation. Respiratory: Lungs clear to auscultation bilaterally. C ardiovascular; Heart is regular without murmurs, rubs or gallops. GI: Abdomen is soft, nontender, nondistended with good bowel sounds in all 4 quadrants. Extremities: No clubbing, cyanosis or edema. Neuro: DTRs are2+/4 and equal bilaterally in all 4 extremities. Strength 5/5 and equal bilaterally in all 4 extremities. Psych: Patient alert and oriented x3. Speech and thoughts are appropriate. She appears well groomed. She makes good eye contact. ASSESSMENT has a 4-mm prolactinoma with a stable prolactin of approximately 14 eight months ago after switching from Dostinex once weekly to 2.5 mg of bromocriptine daily due to the fact that she wasattempting to get . She has continued to have trouble becoming despite regular menstrual cycle. No further evidence of hyperprolactinemia. As noted in previous notes, these tumors tendto be stable in size. Will refer her to Reproductive Endocrine, and advised her to bring her partneralongwith her. PLAN Will continue bromocriptine at 2.5 mg p.o. daily. I have given her a prescription with 1 tablet p.o. daily, dispense #30 with 11 refills today. 2. Will check her prolactin level to confirm it is in the normal range. This should be done on a yearly basis now that she is on a stable dose. 3. Will refer her to Reproductive Endocrinology. ADDENDUM Prolactine level from 06/25/08 was 24.7. Will increase bromocroptine to 5 mg daily. Recheck prolactin level in 6 weeks. I saw and examined the patient with the resident/fellow. I agree with the findings and plan of care documented in the resident's/fellow's note. Signed by Rosemary Acuña MD 07/08/2008 10:49 Reviewed by Felix Saunders DO 07/04/2008 10:54 Felix Saunders DO Rosemary Acuña MD - Felix Saunders DO - MARK Job ID: [id number] Doc ID: [id number] cc: NEHEMIAH Wilson MD,PhD documented in this encounter Plan of Treatment Not on filedocumented as of this encounter Visit Diagnoses Not on filedocumented in this encounter Care Teams Ballistics Laboratory Gunsmith Relationship Specialty Start Date End Date Marah Khalil FNP PCP - General 12/18/08 09/11/15 4 DIANE Barbosa [phone] documented as of this encounter
--- OUTSIDE RECORDS SUMMARY | 2022-04-22 08:32 | XMS_ITS | Encounter Summary ---
:1980 Author Organization [facility] Address [address] [place] [address] Care Team Providers Name Role Phone Marah Khalil AUTOMATIC LATHE OPERATOR Primary Care Provider Encounter Details Date Type Department Care Team Description 08/04/2003 Office Visit [facility] - Tanmay Cid, TOBIAS Maple conversion [address] [address] [address], [place] [address] (Wo rk) Social History Tobacco Use Types Packs/Day Years Used Date Never Assessed Sex Assigned at Date Recorded Not on file documented as of this encounter Progress Notes Moi Cid Jr., GENA - 10/03/2009 0810 EST Emergency Department ??? Physician Summary Registration Date/Time 08/04/2003 13:28 Time Seen (14:50 ). Arrived- By private vehicle. Historian- patient. HISTORY OF PRESENT ILLNESS Chief Complaint: COUGH, SORE THROAT, FEVER, CHILLS and MUSCLE ACHES. This started about 2 days ago and is still present. The illness is described as moderate. She has had sputum production, a cough, chest discomfort, a sore throat and nasal congestion. The patient has had fever, chills, muscle aches and a nasal discharge. No difficulty breathing, chest pain, hoarseness, sinus pressure or sinus drainage. No ear pain. Patient has not had similar symptoms previously. Not recently seen/assessed. REVIEW OF SYSTEMS Last normal menstrual period- 3 weeks ago The patient notes having headache and has had nausea and vomiting. No eye discomfort, diarrhea or abdominal pain. PAST HISTORY See nurses notes. No history of asthma or chronic obstructive pulmonary disease. Medications: See nurses notes. SOCIAL HISTORY Nonsmoker. ADDITIONAL NOTES The nursing notes have been reviewed. PHYSICAL EXAM Appearance: Alert. No acute distress. Vital Signs: The vital signs have been reviewed. Eyes: Pupils equal, round and reactive to light. Eyes normal inspection. ENT: Ears normal. Nose normal. Pharynx normal. Neck: Normal inspection. Neck supple. CVS: Normal heart rate and rhythm. Heart sounds normal. Respiratory: No respiratory distress. Breath sounds normal. Abdomen: Abdomen soft and nontender. Back: Normal inspection. Skin: Normal skin color. Skin warm and dry. Extremities: No pedal edema. Neuro: Oriented X 3. LABS, X-RAYS, ANDEKG Urinalysis: Clean-catch specimen normal (dipstick). PROGRESS AND PROCEDURES ED Attending on duty and available for supervision: Isaias Alarcon. Disposition: Condition: good. CLINICAL IMPRESSION Fever. Acute viral syndrome. INSTRUCTIONS Take Tylenol (Acetaminophen) or Motrin (Ibuprofen) as needed for fever control. Take medication according to label instructions. Drink plenty of fluids. Prescription Medications: Tussionex: as needed for cough every 12 hours. Dispense sixty (60) cc.No refill. Follow-up: Follow up with your doctor in two days if not well. Moi Vail (Electronically signed Moi Vail 08/04/2003 14:54) Physician's Clinical Report Emergency Department ??? Nursing Summary Registration Date/Time 08/04/2003 13:28 TRIAGE Initial Assessment Triage time 13:19 --13:21 Mariajose Isaac R.N. Acuity: LEVEL 4. BP: 114 / 81 sitting HR: 119 RR: 16 Temp: 38.1 O2 saturation: 100% room air Alert. --13:23 Mariajose Isaac R.N. Medications (bcp). --13:21 Mariajose Isaac R.N. Allergies No known drug allergies. --13:21 Mariajose Isaac R.N. History Chief Complaint: FEVER, CHILLS, HEADACHE and NAUSEA. (onset tuesday pm). Pain level now: 02/07. Treatment TURBINE ATTENDANT: took Tylenol. PAST HX: Negative. SOCIAL HX: Nonsmoker. Denies alcohol use. Arrived by private vehicle. Historian: patient. --13:21 Mariajose Isaac R.N. NURSING PROGRESS NOTES Progress Urine collected. Urine test negative; dip trace amount for blood and small amount for ketones (SG 1.015, pH 7.5, ALEXEY 1+, PRO 2+, ROSANGELA trace, rest negative.). --14:46 Carlie Jenkins DISPOSITION / DISCHARGE 14:59. Condition at departure: unchanged. No barriers to learning present. Discharge instructions reviewed with the patient and family. Reviewed medication side effects; prescription (s) given to the patient. Patient verbalized understanding.The patient was discharged home and accompanied by parent. The patient left the Emergency Department ambulatory and via private vehicle. --14:59 China Hightower R.N. 15:04. Condition at departure: unchanged. No barriers to learning present. Discharge instructions reviewed with the patient. Reviewed medication side effects; prescription (s) given to the patient. Patient verbalized understanding. The patient was discharged home and accompanied by parent. The patientleft the Emergency Department ambulatory and via private vehicle. --15:04 Misha Wells R.N., E.M.T. Cindy TaylorR.N. Kathy Karg, R.N. Locked/Released at 08/04/2003 15:21 by Becky Zimmerman R.N. documented in this encounter Plan of Treatment Not on filedocumented as of this encounter Visit Diagnoses Not on filedocumented in this encounter Care Teams Costume Designer Relationship Specialty Start Date End Date Marah Khalil FNP PCP - General 12/18/08 09/11/15 [address] [place] [phone] documented as of this encounter
--- OUTSIDE RECORDS SUMMARY | 2022-04-22 08:32 | XMS_ITS | Encounter Summary ---
:1980 Author Organization [facility] Address [address] [place] [address] Care Team Providers Name Role Phone Unavailable Primary Care Provider Unavailable Encounter Details Date Type Department Care Team Description 12/21/1999 Hospital Encounter [facility] - Eloisa Woo, JOSH Other Unknown, Provider, [address] [place] [address] Social History Tobacco Use Types Packs/Day Years Used Date Never Assessed Sex Assigned at Date Recorded Not on file documented as of this encounter Discharge Disposition Disposition Code Departure Means Destination Auto Discharge documented in this encounter Plan of Treatment Not on filedocumented as of this encounter Procedures Procedure Name Priority Date/Time Associated Comments Diagnosis N.GONORRHOEAE PROBE Routine 12/21/1999 7:27 Resul ts for this EDT procedure are i n the results section. CHLAMYDIA TRACHOMATIS Routine 12/21/1999 7:27 Res ults for this PROBE EDT procedure are i n the results section. CYTOPATHOLOGY Routine 12/21/1999 0:00 Results for this EDT procedure are i n the results section. documented in this encounter Results CHLAMYDIA TRACHOMATIS PROBE (12/21/1999 7:27 EDT) Specimen Cervix [facility] Description LAB Result No Chlamydia [facility] trachomatis DNA LAB detected by pugger helper mediated amplification. Report Status Final [facility] [id number] [facility] Specimen Performing Organization Address City/State/ZIP Code Phon e Number [facility] [address] [place] [address] SERVICES [facility] [address] [place] [address] N.GONORRHOEAE PROBE (12/21/1999 7:27 EDT) Specimen Cervix [facility] Description LAB Result No Neisseria [facility] gonorrhoeae DNA LAB detected by pugger helper mediated amplification. Report Status Final [facility] [id number] [facility] Specimen Performing Organization Address City/State/ZIP Code Phon e Number [facility] [address] [place] [address] SERVICES [facility] [address] [place] [address] CYTOPATHOLOGY (12/21/1999 0:00 EDT) Pathology Report: CYTOPATHOLOGY REPORT [facility] Reports generated via electronic interface contain ajith ginal data; however they are lacking the format of the original re port. Caution should be taken when reading/interpreting unfo rmatted reports. Name: ? VIOLET WILEY ? Accession #: ? [id number] : ? 1980 (Age: 18) ??F ?Collect Date: ? 11/30 Location: ? [facility] ? Receive Date : ? 12/23/1999 Provider: ?[facility] Copy to: ? Specimen/Source: ?ThinPrep Pap Test, Cervix/ Endocervix Last Menstrual Period: ? 12/04/99 Hormonal/Contraceptive Status: ? Oral contraceptives ? SPECIMEN ADEQUACY ? Satisfactory for eval uation but limited by an absence of a transformation zone component. GENERAL CATEGORIZATION ? Within Normal Limits ? Document reviewed and electronically signed by: ? CATIA Andino(ASCP) ? Report Date: ??12/24/1999 11:59 End of Report Specimen Performing Organization Address City/State/ZIP Code Phon e Number [facility] [address] [place] [address] SERVICES [facility] [address] [place] [address] documented in this encounter Visit Diagnoses Not on filedocumented in this encounter
--- OUTSIDE RECORDS SUMMARY | 2022-04-22 08:32 | XMS_ITS | Encounter Summary ---
:1980 Author Organization [facility] Address [facility] [place] [address] Care Team Providers Name Role Phone Julieta Odell ENGRAVER SEALS Primary Care Provider [phone] Reason for Visit Diagnostic Test (Routine) - Closed Specialty Diagnoses / Procedures Referred By Contact Refer red To Contact Radiology Diagnoses Alcoholic cirrhosis of liver with ascites Julieta Odell, [facility] Rad Ct Scan Procedures CT Abdomen wwo Contrast CT Abdomen & Pelvis w Contrast ENGRAVER SEALS [facility] [address] [place] [address] [place] [address] Referral ID Status Reason Start Date Expiration Date Visits V isits Requested Authorized [id number] Closed Specialty 01/01/2021 06/29/2021 1 1 Service Requested Encounter Details Date Type Department Care Team Description 02/04/[address] Scan at [facility] [place], Alcoholic cirrhosis [facility] Julieta Ball APR N of liver with Drive [address] ascites [place] [phone] Social History Tobacco Use Types Packs/Day Years Used Date Never Smoker Smokeless Tobacco: Never Used Comments: never Alcohol Use Standard Drinks/Week Comments Not Currently 10 (1 standard drink = 0.6 oz pure alcoh ol) last drink apr 11 2020 Alcohol Habits Answer Date Recorded How often do you have a drink containing 4 or more times a w [place] 06/21/2020 alcohol? How many drinks containing alcohol do you have 1 or 2 06/21/2020 on a typical day when you are drinking? How often do you have six or more drinks on one Not asked 06/21/2020 occasion? Comment: last drink apr 11 2020 01/23/2021 Sex Assigned at Date Recorded Not on file documented as of this encounter Medications at Time of Discharge Medication Sig Dispensed Refills Start Date End Date bumetanide (Bumex) 1 mg TAKE 1 TABLET(1 MG) 0 03/2021 Tablet BY MOUTH DAILY ferrous sulfate 220 mg (44 TAKE 10 ML BY MOUTH 0 08/28/2020 mg iron)/5 mL Solution EVERY OTHER DAY. TAKE WITH A SMALL AMOUNT OF ORANGE JUICE gabapentin (Neurontin) 100 TAKE 1 CAPSULE BY 0 mg Capsule MOUTH THREE TIMES DAILY potassium chloride 20 mEq Take 20 mEq by 0 2019 Tablet Sustained Release mouth. acetaminophen (Tylenol) Take 1 tablet by 30 tablet 1 2019 500 mg Tablet mouth every 6 hours as needed for Pain. dextromethorphan-guaiFENes Take 5 mLs by mouth 118 mL 0 05/06/2020 in (Robitussin) 10-100 every 4 hours as mg/5 mL Syrup needed for Cough. ondansetron ODT Take 1 tablet by 20 tablet 0 05/06/2020 (Zofran-ODT) 8 mg Tablet, mouth every 8 hours Rapid Dissolve as needed for Nausea. folic acid (Folvite) 1 mg Take 1 tablet by 90 tablet 3 04/01 Tablet mouth daily. multivitamin with minerals Take 1 tablet by 30 tablet 0 (THERA-M) 9 mg iron-400 mouth daily. mcg Tablet pantoprazole EC (Protonix) Take 1 tablet by 90 tablet 3 40 mg Tablet, Delayed mouth 2 times daily. Release (E.C.) thiamine (Vitamin B1) Take 1 tablet by 30 tablet 0 04/18/[address] (Campral) Take 2 tablets by 180 tablet 0 04/01 333 mg Tablet, Delayed mouth 3 times daily. Release (E.C.) documented as of this encounter Plan of Treatment Not on filedocumented as of this encounter Procedures Procedure Name Priority Date/Time Associated Diagnosis Comme nts CT ABDOMEN WWO Routine 02/04/2021 11:40 AM Alcoholic cirrhosis Results for this CONTRAST EDT of liver with procedure are in ascites the results section. documented in this encounter Results CT Abdomen wwo Contrast (02/04/2021 11:40 AM EDT) Anatomical Region Laterality Modality Abdomen Computed Tomography Specimen (Source) Anatomical Location Collection Method / Collectio n Time Received Time / Laterality Volume Impressions 02/04/2021 1:20 PM EDT 1. ??Significant interval improvement in hepatomegaly and diffuse hypoattenuation throughout the left hepatic lobe. 2. ??Hepatic cirrhosis with portal hyper tension. ??Superior mesenteric-perirectal varices. ??Splenomegaly = 14.7 cm. 3. ??Heterogeneous enhancement throughou t the right hepatic lobe, likely related to combination of hepatic cirrhosis and fibrosis. ?? 4. ??Subtle hypervascular 9 mm focus wit hin segment 4, LR-3. 5. ??Cholelithiasis without CT evidence of acute cholecystitis. LI-RADS Categories: LR-TIV = Tumor in vein LR-5 = Definitely hepatocellular carcino ma (concordant with OPTN 5) LR-4 = Probably hepatocellular carcinoma LR-3 = Intermediate probability for hepa tocellular carcinoma LR-2 = Probably benign LR-1 = Definitely benign LR-TR Viable = Treated, probably or defi nitely viable LR-TR Equivocal = Treated, equivocal via ble LR-TR Nonviable = Treated, probably or d efinitely not viable LR-TR Nonevaluable = Treated, Response n ot evaluable (due to image omission or degradation) LR-M = Probably or definitely malignant but not HCC specific LR-NC = Not categorizable (due to image omission or degradation) NOTE: LI-RADS categories should be inter preted in the context of other available data, such as biomarkers and the patient 's prior probability of developing or having hepatocellular carcinoma. The LI- RADS / OPTN classification of liver lesions has been adopted to standardize CT and MRI scan reporting in patients at risk for hepatocellular carcinoma. The i maging criteria for definite hepatocellular carcinoma are concordant for the LI-RADS and OPTN systems. LI-RADS criteria and documentation are a vailable online at https://www.acr.org/Clinical-Resources/R zqashthf-jti-Vvjf-Systems/LI-RADS. This report utilizes LI-RADS version 2018. Thank you for letting us participate in the care of this patient. ??If you are a health care provider and have any questi ons regarding this report, please contact the number below. ??For patients who have questions please contact the health assistant child care teacher that requested your imaging first. ? Electronically signed by: Carlitos Steve DO, [facility] ([phone]), at 02/04/2021 1:20 PM Narrative 02/04/2021 1:20 PM EDT EXAMINATION: CT OF THE ABDOMEN WITHOUT AND WITH INTRAVENOUS CONTRAST CLINICAL HISTORY: 40-year-old female wit h history of alcoholic cirrhosis who presented in transfer for upper gastroin testinal hemorrhage status post empiric gastroduodenal artery embolization. ??Pr etransplant evaluation. ??Screening and surveillance for hepatocellular carcinom a. TECHNIQUE: Helical CT of the abdomen was performed without and following intravenous administration of contrast. The patient received 110 mL Omnipaque 350 intravenous contrast. Oral contrast was administered. COMPARISON: Comparison is made to CT of the abdomen and pelvis dated April 09, 2020. ??Correlation is made to angio gram dated April 11, 2020 and ultrasound of the abdomen examinations d ated 04/22/2020 and 06/23/2020. FINDINGS: Children'S Lunchroom Supervisor Images: Noncontributory. Lower chest: There are regions of atelec tasis within the right middle lobe and to assess extent lingula. Liver: Prior hepatic interventions: None. Liver Morphology: The previously noted s ignificant enlargement of the left hepatic lobe has decreased as compared t o the prior examination. ??There is a subtle nodular contour to the hepatic pa renchyma. ??There is diffuse hypoattenuation throughout the left hepa tic lobe has also resolved. ??On postcontrast imaging, there is heterogen eous enhancement of the hepatic parenchyma, most pronounced in the super ior aspect of the right hepatic lobe and inferolateral aspect of the right hepati c lobe. Focal hepatic lesions: Yes. Lesion 1: Segment 4, series 8, image 27 Size: 8mm Enhancement: Slightly hypervascular on l ate arterial phase images. Washout or pseudocapsule: None. Change from prior: This lesion is not de finitively seen on the prior examination LI-RADS: LR-3 Portal Vein: Widely Patent. Varices: There are prominent retroperito sujit varices, particularly along the right paracolic gutter, incompletely vis ualized, but previously via superior mesenteric and perirectal collateral pat hways. ??Additionally, previously, there are prominent parametrial vessels bilate rally. Ascites: None. Bile ducts: Normal. Gallbladder: There are layering calcifie d gallstones. ??The gallbladder is nondistended. ??There is no gallbladder wall thickening, pericholecystic fluid, pericholecystic fat dictation. Pancreas: Normal attenuation without harshal karoline dilatation. Spleen: The spleen is enlarged with an a nteroposterior diameter 14.7 cm. Adrenals: Normal. Kidneys: Normal. Vasculature: The aorta is normal in cour se and caliber. ??The origin of the mesenteric and renal arteries are within normal limits. ??There is been prior coronary embolization of the gastroduode nal artery. ??The inferior vena cava is normal in course and caliber. ??The supe rior mesenteric, splenic, and portal veins are patent. ??The hepatic veins ar e patent. Lymph Nodes: There are no pathologically enlarged lymph nodes. Bowel: Limited evaluation the distal eso phagus is unremarkable. ??The stomach is distended. ??The duodenum is normal in c ourse and caliber. ??The remainder of the visualized small bowel is within normal limits. ??Visualized aspects of the large bowel demonstrated a moderate volume of stool. Peritoneum and mesentery: No ascites, fr ee air, or loculated fluid collection. No mesenteric inflammation. Abdominal wall: There is a small fat-con taining umbilical Osseous structures: There are no suspici ous osseous lesions. Julieta Odell ENGRAVER SEALS IMG CT ORDERABLES documented in this encounter Visit Diagnoses Diagnosis Alcoholic cirrhosis of liver with ascite s Alcoholic cirrhosis of liver documented in this encounter Administered Medications Inactive Administered Medications - up to 3 most recent administrations Medication Order MAR Action Action Date Dose Rate Site iohexoL (Omnipaque) (350 mg/mL) Given 02/04/2021 11:41 AM EDT 11 0 mLs injection solution 0-200 mL 0-200 mL, Intravenous, ONCE PRN, 1 dose, Starting on Tue02/04/21 at 1140, Until Tue02/04/21 at 1141, Per Protocol, Warning Vesicant/Irritant Medication , Radiology Contrast, Routine iohexoL (Omnipaque) (350 mg/mL) injection Given 02/04/2021 11:41 AM EDT 50 mLs solution 0-50 mL 0-50 mL, Oral, ONCE PRN, 1 dose, Starting on Tue02/04/21 at 1140, Until Tue02/04/21 at 1141, Per Protocol, Warning Vesicant/Irritant Medication , Radiology Contrast, Routine documented in this encounter Care Teams Charge Hand Relationship Specialty Start Date End Date Julieta Odell, ENGRAVER SEALS PCP - General Family Medicine 04/11/20 [address] [place], [place] [address] documented as of this encounter
--- OUTSIDE RECORDS SUMMARY | 2022-04-22 08:32 | XMS_ITS | Encounter Summary ---
:1980 Author Organization [facility] Address [address] [place] [address] Care Team Providers Name Role Phone Marah Khalil Primary Care Provider Encounter Details Date Type Department Care Team Description 07/23/2009 Abstract [facility] Marah Khalil Uns pecified Symptom Women's Services - Main TOWER CRANE OPERATOR Associated with Female [place] [facility] [address] [place] [phone] Social History Tobacco Use Types Packs/Day Years Used Date Never Assessed Sex Assigned at Date Recorded Not on file documented as of this encounter Plan of Treatment Not on filedocumented as of this encounter Visit Diagnoses Diagnosis Unspecified symptom associated with fema le genital organs documented in this encounter Care Teams Weigh And Charge Worker Relationship Specialty Start Date End Date Marah Khalil FNP PCP - General 12/18/08 [address] [place] [phone] documented as of this encounter
--- OUTSIDE RECORDS SUMMARY | 2022-04-22 08:32 | XMS_ITS | Encounter Summary ---
:1980 Author Organization [facility] Address [address] [place] [address] Care Team Providers Name Role Phone Marah Khalil NEHEMIAH Primary Care Provider Karl Saab MD Primary Care Provider None, Provider Primary Care Provider Unavailable Encounter Details Date Type Department Care Team Description 08/25/2005 Hospital Encounter [facility] Nigel Yen i, MD [place] [address] [facility] [address] [facility] [address] [place], [place] [id number] [place] [phone] (Wo rk) Social History Tobacco Use Types [...] Date/Time Associated Diagnosis Comme nts PROLACTIN Routine 08/27/2005 8:10 EST Results for this procedure are i n the results section. ACTH, PLASMA Routine 08/25/2005 13:53 EST Results for this procedure are i n the results section. PROLACTIN Routine 08/25/2005 13:53 EST Results for this procedure are i n the results section. IGF-1, LC/MS, S Routine 08/25/2005 13:53 EST Resu lts for this procedure are i n the results section. TSH Routine 08/25/2005 13:53 EST Results for this procedure are i n the results section. T4 FREE Routine 08/25/2005 13:53 EST Results for this procedure are i n the results section. LH Routine 08/25/2005 13:53 EST Results for this procedure are i n the results section. FSH Routine 08/25/2005 13:53 EST Results for this procedure are i n the results section. CORTISOL Routine 08/25/2005 13:53 EST Results for this procedure are i n the results section. documented in this encounter Results PROLACTIN (08/27/2005 8:10 EST) Pathologist Sig nature Prolactin 112.4 ng/ml [facility] Comment: Non-: 2.8-29.2 : 9.7-208.5 Post Menopausal: 1.8-20.3 Specimen Performing Organization Address City/[facility]/ZIP Code Phon e Number [facility] [address] [place] [address] SERVICES [facility] [address] [place] [address] TSH (08/25/2005 13:53 EST) Pathologist Sig nature TSH 2.15 0.35 - 5.50 uIU/ml [facility] Specimen Performing Organization Address City/[facility]/ZIP Code Phon e Number [facility] [address] [place] [address] SERVICES [facility] [address] [place] [address] PROLACTIN (08/25/2005 13:53 EST) Pathologist Sig nature Prolactin 111.5 ng/ml [facility] Comment: Non-: 2.8-29.2 : 9.7-208.5 Post Menopausal: 1.8-20.3 Specimen Performing Organization Address City/State/ZIP Code Phon e Number [facility] [address] [place] [address] SERVICES [facility] [address] [place] [address] LH (08/25/2005 13:53 EST) Pathologist Sig nature LH 5.8 mIU/ml [facility] Comment: Follicular: 1-18 Mid-Cycle Peak: 15-80 Luteal: 0.5-18 Postmenopausal: 12-55 Specimen Performing Organization Address City/[facility]/ZIP Code Phon e Number [facility] [address] [place] [address] SERVICES [facility] [address] [place] [address] INSULIN LIKE GROWTH FACTOR I (IGF-1) (08/25/2005 13:53 EST) Insulin-Like GF-1 161Unit: ng/mL(Note) [facility] -- EXPECTED VALUES -- ? (Ref Range) 117 to 329 ? Test Performed by: ? [facility] Dpt of Lab Med a nd Pathology ? [address], [place] [address] ? Locomotive Lubricating Systems Clerk: Enrico Caruso M.D. ? Specimen Performing Organization Address [facility] Phon e Number [facility] [address] [place] [address] SERVICES [facility] [address] [place] [address] T4 FREE (08/25/2005 13:53 EST) Pathologist Sig nature Free T4 1.1 0.8 - 1.8 ng/dl [facility] Specimen Performing Organization Address [facility] Phon e Number [facility] [address] [place] [address] SERVICES [facility] [address] [place] [address] FSH (08/25/2005 13:53 EST) Pathologist Sig nature FSH 3.6 mIU/ml [facility] Comment: Follicular: 2-11 Mid-Cycle Peak: 3.4-35 Luteal: 1-9 Postmenopausal: 25-120 Specimen Performing Organization Address [facility] Phon e Number [facility] [address] [place] [address] SERVICES [facility] [address] [place] [address] CORTISOL (08/25/2005 13:53 EST) Pathologist Sig nature Cortisol 16 ug/dl [facility] Comment: 7-9a.m.=4.3-22.4 3-5p.m.=3.1-16.7 Specimen Performing Organization Address [facility] Phon e Number [facility] [address] [place] [address] SERVICES [facility] [address] [place] [address] ACTH, PLASMA (08/25/2005 13:53 EST) Adrenocorticotropic 23Unit: pg/mL(Note) [facility] -- EXPECTED VALUES -- ? LAB (Ref Range) 10 to 60 (a.m. d raw) ? Please note change in refere nce ranges effective 2005. ? Test Performed by: ? [facility] Dpt of Lab Med a nd Pathology ? [address], [place] [address] ? [employer] Clerk: Enrico Caruso M.D. ? Specimen Performing Organization Address City/State/ZIP Code Phon e Number [facility] [address] [place] [address] SERVICES [facility] [address] [place] [address] documented in this encounter Visit Diagnoses Not on filedocumented in this encounter Care Teams Beading Sawyer Relationship Specialty Start Date End Date Marah Khalil FNP PCP - General 12/18/08 09/11/15 [address] [place] [phone] Karl Saab MD PCP - General 09/12/15 2 [address] [place], [place] [id number] None, Provider PCP - General 09/10/16 documented as of this encounter
--- OUTSIDE RECORDS SUMMARY | 2022-04-22 08:32 | XMS_ITS | Encounter Summary ---
:1980 Author Organization [facility] Address [address] [place] [address] Care Team Providers Name Role Phone Marah Khalil NEHEMIAH Primary Care Provider Reason for Visit Reason Onset Date Comments 02/22/2011 Encounter Details Date Type Department Care Team Description 02/22/2011 Telephone [facility] Reproductive Lulú Hawley RN [facility] [address] [place] [address] Social History Tobacco Use Types Packs/Day Years Used Date Never Smoker Alcohol Use Standard Drinks/Week Comments No 0 (1 standard drink = 0.6 oz pure alcoho l) Sex Assigned at Date Recorded Not on file documented as of this encounter Miscellaneous Notes Telephone Encounter - Gina Henderson RN - 02/23/2011 1106 EDT Pt called with questions regarding cramping and light bleeding. Explained this is normal. Ectopic precautions given. USM made for 03/15/11 @ 1:30. Gina Henderson RN Telephone Encounter - Lulú Hawley - 02/22/2011 1123 EDT Return message left from patient. Patient reports that the cramping she experienced is not severe. She compares it to the cramping you feel prior to your menses. Message left for patient explaining that this type of cramping can be very normal early in . She was also advised that if cramping becomes severe or if she develops bleeding she should call back for evaluation. elephone Encounter - Lulú Hawley - 02/22/2011 0830 EDT Telephone message left by patient yesterday reporting that she began having moderate cramping. She reports no bleeding. Attempt made to reach patient but she is unavailable. Message left for patient tocall back. documented in this encounter Plan of Treatment Not on filedocumented as of this encounter Visit Diagnoses Not on filedocumented in this encounter Care Teams Motor Vehicle Light Assembler Relationship Specialty Start Date End Date Marah Khalil FNP PCP - General 12/18/08 09/11/15 [address] [place] [phone] documented as of this encounter
--- OUTSIDE RECORDS SUMMARY | 2022-04-22 08:32 | XMS_ITS | Encounter Summary ---
:1980 Author Organization [facility] Address [address] [place] [address] Care Team Providers Name Role Phone Marah Khalil Primary Care Provider Karl Saab MD Primary Care Provider None, Provider Primary Care Provider Unavailable Encounter Details Date Type Department Care Team Description 07/03/2008 Hospital Encounter [facility] - Sa[facility]l Pena MD [id number] [place] [address] [phone] Social History Tobacco Use Types Packs/Day Years [...] on filedocumented in this encounter Care Teams Automotive Sales Executive Relationship Specialty Start Date End Date Marah Khalil FNP PCP - General 12/18/08 09/11/15 [address] [place] [phone] Karl Saab MD PCP - General 09/12/15 09/09/16 [address] [place] [id number] None, Provider PCP - General 09/10/16 documented as of this encounter
--- OUTSIDE RECORDS SUMMARY | 2022-04-22 08:32 | XMS_ITS | Encounter Summary ---
:1980 Author Organization [facility] Address [address] [place] [address] Care Team Providers Name Role Phone Unavailable Primary Care Provider Unavailable Encounter Details Date Type Department Care Team Description 04/24/2001 Hospital Encounter [facility] Emergency, Emergency Department - [place], Main [place] [address] [place], [place] [id number] Social History Tobacco Use Types Packs/Day Years Used Date Never Assessed Sex Assigned at Date Recorded Not on file documented as of this encounter Discharge Disposition Disposition Code Departure Means Destination Home or Self Care documented in this encounter Plan of Treatment Not on filedocumented as of this encounter Procedures Procedure Name Priority Date/Time Associated Diagnosis Comme nts ANKLE 3 OR MORE Routine 04/24/2001 17:46 Results for this VIEWS EDT procedure are i n the results section. FOOT 3 OR MORE Routine 04/24/2001 17:34 Results f or this VIEWS EDT procedure are i n the results section. documented in this encounter Results ANKLE 3 OR MORE VIEWS (04/24/2001 17:46 EDT) Anatomical Region Laterality Modality Other Specimen Impressions [facility] - 06/20/2009 2: 55 EST IMPRESSION: #1: No acute bony abnormality. FINDINGS: Three views of the ankle and t hree views of the foot are obtained. Bony mineralization is normal. Alignment and position are anatomic. No acute bony abnormality is s een. Small amount of soft tissue swelling is seen overlying the la teral malleolus. D: 04-24-01 T: 04-25-01 /am Narrative [facility] - 06/20/2009 2: 55 EST fell twisting left foot 2 days ago 5-3 metatarsal fx 04-24-01 FOOT AND ANKLE: Procedure Note Joanne Schwarz MD - 06/20/2009 fell twisting left foot 2 days ago 5-3 m etatarsal fx 04-24-01 FOOT AND ANKLE: IMPRESSION IMPRESSION: #1: No acute bony abnormality. FINDINGS: Three views of the ankle and t hree views of the foot are obtained. Bony mineralization is normal. Alignment and position are anatomic. No acute bony abnormality is s een. Small amount of soft tissue swelling is seen overlying the la teral malleolus. D: 04-24-01 T: 04-25-01 /am Performing Organization Address City/[facility]/ZIP Code Phon e Number [facility] [address] [place] [address] [address] 05 401 FOOT 3 OR MORE VIEWS (04/24/2001 17:34 EDT) Anatomical Region Laterality Modality Other Specimen Narrative [facility] - 06/20/2009 2: 55 EST fell twisting left foot 2 days ago 5-3 metatarsal fx Procedure Note Joanne Schwarz MD - 06/20/2009 fell twisting left foot 2 days ago 5-3 m etatarsal fx Performing Organization Address City/[facility] Code Phon e Number [facility] [address] [facility] [address] [facility] [address] [place] [address] 05 [phone] documented in this encounter Visit Diagnoses Not on filedocumented in this encounter
--- OUTSIDE RECORDS SUMMARY | 2022-04-22 08:32 | XMS_ITS | Encounter Summary ---
:1980 Author Organization [facility] Address [address] [place] [address] Care Team Providers Name Role Phone Marah Khalil NEHEMIAH Primary Care Provider Encounter Details Date Type Department Care Team Description 06/30/2006 Before [facility] - Nuris Clifton MD Converted Visit Maple conversion FA HOUSESTAFF MAIL (Maple) [address] [facility] [address] [place] [address] [place] [address] Social History Tobacco Use Types Packs/Day Years Used Date Never Assessed Sex Assigned at Date Recorded Not on file documented as of this encounter Progress Notes Richard, [employer] Transportation Director - 08/05/2009 0315 EST DIVISION OF ENDOCRINOLOGY PROGRESS/FOLLOWUP NOTE - 06/30/2006 This is a follow-up note. Ms. Delgado was seen in followup [facility] for evaluation of her prolactinoma. Ms. Delgado is a 24-year-old female who had presented with symptoms of galactorrhea, irregular menses, and a 4 mm pituitary adenoma and high prolactinlevels. She has been on Dostinex 0.25 mg once a week for almost a year. She has had not had any nipple discharge and her menstrual cycles have been regular. She is planning to get in March andplan a in a year. She does not have any other concerns today. MEDICATIONS: Carbachol one-half tablet weekly. Blood work done on 06/28/2006 showed a prolactin of 28.9. She had a recent MRI on 06/21/2006 which showed a 4-mm pituitary microadenoma which has been stable. PHYSICAL EXAM: Blood pressure 130/85, pulse 92, weight 134, height 5 feet 8 inches. A pleasant female in no significant stress. HEENT: No lid lag, retraction, or exophthalmos. HEART: Regular rate and rhythm. LUNGS: Clear bilaterally. LOWER EXTREMITIES: No edema. ASSESSMENT AND PLAN: Ms. Violet Delgado is a pleasant 24-year-old female with prolactinoma. Hersymptoms have resolved and prolactin levels have been stable. PLAN: Would recommend that she continue Dostinex at 0.25 mg once a week. Advised that she stop her carbachol once she is and preferably avoid as this might stimulate the prolactin levels and hence the tumor, even though there hasnot been enough evidence in the literature. She will get her blood work in 6 months and followup back in 6 months with prolactin levels. I saw and examined the patient with Dr Yumi Clifton. I agree with the HPI, exam findings and theplan of care as outlined above. I have documented any additions/changes in the body of the note. Signed by Ryan Estrada MD 07/05/2006 13:44 Anderson Gonzalez MBBSJoel J Schnure, MDCarteret Health CareAssociate Professor of Medicine Dictated by: JUAN C Newman Ryan Estrada MD [facility] Care manager human resources - JUAN C Newman P - o1 Job ID: [id number] Document ID: [id number] cc: documented in this encounter Plan of Treatment Not on filedocumented as of this encounter Visit Diagnoses Not on filedocumented in this encounter Care Teams Consulting Sales Executive Relationship Specialty Start Date End Date Marah Khalil FNP PCP - General 12/18/08 09/11/15 4 DIANE Barbosa [phone] documented as of this encounter
--- OUTSIDE RECORDS SUMMARY | 2022-04-22 08:32 | XMS_ITS | Clinical Summary ---
:1980 Author Organization [facility] Address [place] [id number] Care Team Providers Name Role Phone Julieta Odell Lizzy ESPOSITO Primary Care Provider Allergies No known active allergies Medications Medication Sig Dispensed Refills Start Date End Date Status folic acid (Folvite) 1 Take 1 tablet by 90 tablet 3 04/18/2020 Active mg Tablet mouth daily. multivitamin with Take 1 tablet by 30 tablet 0 04/18/2020 Active minerals (THERA-M) 9 mg mouth daily. iron-400 mcg Tablet pantoprazole EC Take 1 tablet by 90 tablet 3 04/17/2020 Active (Protonix) 40 mg mouth 2 times Tablet, Delayed Release daily. (E.C.) thiamine (Vitamin B1) Take 1 tablet by 30 tablet 0 04/18/2020 Active mouth daily. acamprosate DR Take 2 tablets 180 tablet 0 04/17/2020 Active (Campral) 333 mg by mouth 3 times Tablet, Delayed Release daily. (E.C.) acetaminophen (Tylenol) Take 1 tablet by 30 tablet 1 0 Active 500 mg Tablet mouth every 6 hours as needed for Pain. dextromethorphan-guaiFE Take 5 mLs by 118 mL 0 05/06/2020 Active Nesin (Robitussin) mouth every 4 10-100 mg/5 mL Syrup hours as needed for Cough. ondansetron ODT Take 1 tablet by 20 tablet 0 05/06/2020 Active (Zofran-ODT) 8 mg mouth every 8 Tablet, Rapid Dissolve hours as needed for Nausea. bumetanide (Bumex) 1 mg TAKE 1 TABLET(1 0 08/08/2020 Active Tablet MG) BY MOUTH DAILY ferrous sulfate 220 mg TAKE 10 ML BY 0 08/28/2020 Active (44 mg iron)/5 mL MOUTH EVERY Solution OTHER DAY. TAKE WITH A SMALL AMOUNT OF ORANGE JUICE gabapentin (Neurontin) TAKE 1 CAPSULE 0 01/14/2021 Active 100 mg Capsule BY MOUTH THREE TIMES DAILY potassium chloride 20 Take 20 mEq by 0 06/24/2020 Active mEq Tablet Sustained mouth. Release Active Problems Problem Noted Date UGIB (upper gastrointestinal bleed) 06/21/2020 Alcoholic hepatitis with ascites 04/26/2020 Alcoholic hepatitis 04/26/2020 Jaundice 04/19/2020 GI bleed 04/11/2020 Social History Tobacco Use Types Packs/Day Years Used Date Never Smoker Smokeless Tobacco: Never Used Comments: never Alcohol Use Standard Drinks/Week Comments Not Currently 10 (1 standard drink = 0.6 oz pure alcoh ol) last drink apr 11 2020 Alcohol Habits Answer Date Recorded How often do you have a drink containing 4 or more times a w sen[place] 06/21/2020 alcohol? How many drinks containing alcohol [...] Sign Reading Time Taken Comments Blood Pressure 102/66 01/23/2021 11:02 AM EDT Pulse 77 01/23/2021 10:12 AM EDT Temperature 36.3 ??C (97.3 ??F) 01/23/2021 10:12 AM EDT Respiratory Rate 18 01/23/2021 11:02 AM EDT Oxygen Saturation 100% 01/23/2021 11:05 AM EDT Inhaled Oxygen Concentration - - Weight 66.7 kg (147 lb) 01/23/2021 10:12 AM EDT Height 170.2 cm (5' 7.01) 06/21/2020 3:52 PM EST Body Mass Index 23.02 06/21/2020 3:52 PM EST Plan of Treatment Health Maintenance Due Date Last Done Comments Covid-19 Vaccine (#1) 12/30/1983 Tdap adult 1997 Tetanus vaccine 1997 HPV test 2008 PAP Smear 2008 Breast Cancer Share Decision Needed 2018 Influenza (Flu) vaccine (1 of 1 - Influenza standard 04/01/2022 series) Hepatitis C Screening Completed 04/11/2020 HIV screen Completed 04/14/2020 Medical Devices Implanted Type Area Braze Operator Device Shelf Model / Identifier Expiration Serial / Date Lot Coil,Occl,Vortx-35,Cnl,3x35mm ([id number])-04/12/2020 IMPLANTS Arterial [place] 05/23/2022 [id number] / Implanted: Qty: 2 on 04/12/2020 by Carlitos Steve, DO SCIENTIFIC [id number] / [employer] - [id number] [address] [place] [address] SCI Description: 5x4.5 vortex coil in GDA Insurance Payer Benefit Plan / Subscriber ID Effective Dates Phone Addre ss Type Group [employer] [id number] 2020-Present [address] [employer] [place] [place] [address] Advance Directives Latest Code Status on File Code Status Date Activated Date Inactivated Comments Attempt Cardiopulmonary Resuscitation 06/21/2020 1:15 PM 020 3:55 PM - Inpatient Code Status decision made by: Patient Attempt Cardiopulmonary Resuscitation - 04/26/2020 5:33 AM 020 11:35 PM Inpatient Code Status decision made by: Patient Attempt Cardiopulmonary Resuscitation - 04/19/2020 2:05 AM 020 8:01 PM Inpatient Code Status decision made by: Patient Attempt Cardiopulmonary Resuscitation - 04/11/2020 5:02 PM 020 4:38 PM Inpatient Code Status decision made by: Patient Care Teams Bdc Manager Relationship Specialty Start Date End Date Julieta Odell APRN PCP - General Family Medicine 04/11/20 [address] [place] [address]
--- OUTSIDE RECORDS SUMMARY | 2022-04-22 08:32 | XMS_ITS | Encounter Summary ---
:1980 Author Organization Health system Address [address] [place] [address] Care Team Providers Name Role Phone Unavailable Primary Care Provider Unavailable Encounter Details Date Type Department Care Team Description 08/12/2003 Hospital Encounter [facility] Emergency, Emergency Department - [place], Main [place] [address] [place] [address] Social History Tobacco Use Types Packs/Day Years Used Date Never Assessed Sex Assigned at Date Recorded Not on file documented as of this encounter Discharge Disposition Disposition Code Departure Means Destination Home or Self Care documented in this encounter Plan of Treatment Not on filedocumented as of this encounter Procedures Procedure Name Priority Date/Time Associated Comments Diagnosis URINE SEDIMENT Routine 08/12/2003 17:00 Results f or this (MICRO) WITHOUT EST procedure ar e in REFLEX TO CULTURE the result s section. BACTERIAL CULTURE, Routine 08/12/2003 17:00 Resul ts for this URINE EST procedure are i n the results section. CREATININE Routine 08/12/2003 15:45 Results for this EST procedure are i n the results section. HOLD Routine 08/12/2003 15:45 Results for this EST procedure are i n the results section. TESTS ADDED BY PHONE Routine 08/12/2003 15:45 Res ults for this EST procedure are i n the results section. BUN Routine 08/12/2003 15:45 Results for this EST procedure are i n the results section. documented in this encounter Results BACTERIAL CULTURE, URINE (08/12/2003 17:00 EST) Specimen Description Urine [facility] Result Greater than 100,000 CFU/ml [facility] Report Status Final [facility] [id number] Specimen Organism Antibiotic Method Susceptibility Greater than Ampicillin SUSCEPTIBILITY (DOMO) 2 100,000 Susceptible cfu/mlescherichia Susceptible coli Greater than Cefazolin SUSCEPTIBILITY (DOMO) <=8 100,000 Susceptible cfu/mlescherichia Susceptible coli Greater than Gentamicin SUSCEPTIBILITY (DOMO) 1 100,000 Susceptible cfu/mlescherichia Susceptible coli Greater than Trimethoprim-Sulfametho SUSCEPTIBILITY (DOMO) <=. 5/9.5 100,000 xazole Susceptible cfu/mlescherichia Susceptible coli Greater than Nitrofurantoin SUSCEPTIBILITY (DOMO) <=32 100,000 Susceptible cfu/mlescherichia Susceptible coli Greater than Tobramycin SUSCEPTIBILITY (DOMO) 1 100,000 Susceptible cfu/mlescherichia Susceptible coli Greater than Amikacin SUSCEPTIBILITY (DOMO) <=2 100,000 Susceptible cfu/mlescherichia Susceptible coli Greater than Imipenem SUSCEPTIBILITY (DOMO) <=4 100,000 Susceptible cfu/mlescherichia Susceptible coli Greater than Piperacillin SUSCEPTIBILITY (DOMO) <=8 100,000 Susceptible cfu/mlescherichia Susceptible coli Greater than Ciprofloxacin SUSCEPTIBILITY (DOMO) <=0.5 100,000 Susceptible cfu/mlescherichia Susceptible coli Performing Organization Address City/[facility] Phon e Number [facility] [address] [place] [address] SERVICES [facility] [address] [place] [address] (ABNORMAL) URINE MICROSCOPIC ONLY (08/12/2003 17:00 EST) WBC, UA 10 to 50 0 - 5 /HPF [facility] RBC, UA 10 to 50 0 - 5 /HPF [facility] Squam Epithel, UA None seen NS /HPF [facility] Renal Epithel, UA None seen NS /HPF [facility] Bacteria, UA Frequent (A) NS /HPF [facility] Crystals, UA None seen /HPF [facility] Hyaline Casts, UA None seen /LPF [facility] UA Comment Microscopic results [facility] are unreliable on LAB urines unrefrig >2hrs or refrig >8hrs. Specimen Performing Organization Address City/[facility] Phon e Number [facility] [address] [place] [address] SERVICES [facility] [address] [place] [address] HOLD (08/12/2003 15:45 EST) Pathologist Sig nature Hold Hold for further testing. Specimen will be held for 30 days. [facility] EDTA for hematology will be discarded after 48 hours, differential not available after 12 hours. Sample for coagulation will be discarded after 4 hours Heparinized plasma. Specimen Performing Organization Address [facility]/ZIP Code Phon e Number [facility] [address] [place] [address] SERVICES [facility] [address] [place] [address] CREATININE (08/12/2003 15:45 EST) Pathologist Sig nature Creatinine 1.1 0.7 - 1.5 mg/dl [facility] Specimen Performing Organization Address [facility]/ZIP Code Phon e Number [facility] [address] [place] [address] SERVICES [facility] [address] [place] [address] BUN (08/12/2003 15:45 EST) Pathologist Sig nature BUN 12 10 - 26 mg/dl [facility] Specimen Performing Organization Address [facility]/ZIP Code Phon e Number [facility] [address] [place] [address] SERVICES [facility] [address] [place] [address] TESTS ADDED BY PHONE (08/12/2003 15:45 EST) Pathologist Sig nature Tests to be added BUN AND CREA [facility] Diagnosis Code PYLENEPHRITIS [facility] Specimen Performing Organization Address [facility]/ZIP Code Phon e Number [facility] [address] [place] [address] SERVICES [facility] [address] [place] [address] documented in this encounter Visit Diagnoses Not on filedocumented in this encounter
--- OUTSIDE RECORDS SUMMARY | 2022-04-22 08:32 | XMS_ITS | Encounter Summary ---
:1980 Author Organization [facility] Address [address] [place] [address] Care Team Providers Name Role Phone Unavailable Primary Care Provider Unavailable Encounter Details Date Type Department Care Team Description 07/30/2008 Hospital Encounter [facility] - Saúl Pena MD [id number] [place] [phone] Social History Tobacco Use Types Packs/Day Years Used Date Never Assessed Sex Assigned at Date Recorded Not on file documented as of this encounter Discharge Disposition Disposition Code Departure Means Destination Auto Discharge documented in this encounter Plan of Treatment Not on filedocumented as of this encounter Procedures Procedure Name Priority Date/Time Associated Comments Diagnosis PROLACTIN Routine 06/16/2009 14:48 Results for this EST procedure are i n the results section. SEISMOGRAPH CHIEF US PELVIS 05/21/2009 15:28 Results fo r this TRANSVAGINAL EDT procedure are i n the results section. HPV DETECTION, HIGH Routine 05/21/2009 15:01 Resu lts for this RISK TYPES EDT procedure are i n the results section. CYTOPATHOLOGY Routine 05/21/2009 0:00 Results for this EDT procedure are i n the results section. SURGICAL PATHOLOGY Routine 02/19/2009 0:00 Result s for this EDT procedure are i n the results section. documented in this encounter Results PROLACTIN (06/16/2009 14:48 EST) Pathologist Sig nature Prolactin 8.1 ng/ml [facility] Comment: Non-: 2.8-29.2 : 9.7-208.5 Post Menopausal: 1.8-20.3 Specimen Performing Organization Address City/State/ZIP Code Phon e Number [facility] [address] [place] [address] SERVICES [facility] [address] [place] [address] SEISMOGRAPH CHIEF US PELVIS TRANSVAGINAL (05/21/2009 15:28 EDT) Anatomical Region Laterality Modality Other Specimen Narrative [facility] - 05/22/2009 14:32 EDT TRANSVAGINAL ULTRASOUND: ??05/21/2009 INDICATION: ??28-year-old with intermitt ent right lower quadrant pain during the second half of her cycle. FINDINGS: ??The uterus is normal measuri ng 8 x 4.3 x 5.2 cm sagittal x AP x transverse respectively. ??The cerv ix is normal and the fundus anterior. ??The endometrial stripe measu red 10mm one week prior to onset of menses. ??The endometrium was o therwise normal. ??The myometrium was normal. ??The right ovary measured 3.5 x 2.7 x 3.1 cm and contained a 28 x 24 x 24 mm corpus l uteum. ??The left ovary measured 2.5 x 1.8 x 1.7 cm and was norm al. ??There was no free fluid in the cul-de-sac. INTERPRETATION: ??Normal transvaginal ul trasound with a right corpus luteal cyst. ?? PLAN: ??Patient will follow up with Dr. Pena. D: ??05/21/2009 T: ??05/22/2009 /dw Procedure Note 05/22/2009 TRANSVAGINAL ULTRASOUND: 05/21/2009 INDICATION: 28-year-old with intermitten t right lower quadrant pain during the second half of her cycle. FINDINGS: The uterus is normal measuring 8 x 4.3 x 5.2 cm sagittal x AP x transverse respectively. The cervix is normal and the fundus anterior. The endometrial stripe measure d 10mm one week prior to onset of menses. The endometrium was oth erwise normal. The myometrium was normal. The right ovary m easured 3.5 x 2.7 x 3.1 cm and contained a 28 x 24 x 24 mm corpus l uteum. The left ovary measured 2.5 x 1.8 x 1.7 cm and was norm al. There was no free fluid in the cul-de-sac. INTERPRETATION: Normal transvaginal ultr asound with a right corpus luteal cyst. PLAN: Patient will follow up with Dr. Qiana nicholson. /dw Performing Organization Address City/[facility]/ZIP Code Phon e Number [facility] MATERNAL MEDICINE [facility] HUMAN PAPILLOMA VIRUS DNA TEST (05/21/2009 15:01 EDT) Specimen Description Cervix, ThinPrep [facility] Result Positive for one or more of HPV types 16,18,31,33,35,39,45,51,52,56,58,59, or 68. These [facility] high/intermediate risk HPV t ypes are associated with dysplasia and some cervical cancers. LAB Report Status Final [facility] 06/04/2009 LAB Specimen Performing Organization Address City/[facility]/ZIP Code Phon e Number [facility] [address] [place] [address] SERVICES [facility] [address] [place] [address] CYTOPATHOLOGY (05/21/2009 0:00 EDT) Pathology Report: CYTOPATHOLOGY REPORT ? [facility] ? LAB Reports generated via Four Eyes interface contain original data; ? however they are lacking the format of the original report. ? Caution should be taken when reading/interpreting unformatted reports. ? Name: ? INEZ, MERVIN ANDER L ? Accession #: ? [id number] ? : ? 1980 (Age: 28) ??F ?Collect Date: ? 05/21/2009 ? Location: ? [facility] ? Receive Date: ? 05/22/2009 ? Provider: ?SALÚ H R IDDICK MD ? Copy to: ? Specimen/Source: ? Pap Test, Cervix/Endocervix, ThinPrep Imaging System ? with manual evaluation ? Last Menstrual Period: ? 9/30/09 ? Other: ? HP[facility]X - HPV testing requeste d regardless of diagnosis on current ThinPrep Pap ?? test. ? SPECIMEN ADEQUACY ? Satisfactory for Eval uation ? - transformation zone compon ent present ? GENERAL CATEGORIZATION ? Negative for Intraepi thelial Lesion or Malignancy ? Document reviewed and electr onically signed by: ? Leidy Contreras, CT(ASCP ) ? Report Date: ??10/29/ 2009 10:27 ? End of Report ? Specimen Performing Organization Address City/State/ZIP Code Phon e Number [facility] [address] [place] [address] SERVICES [facility] [address] [place] [address] SURGICAL PATHOLOGY (02/19/2009 0:00 EDT) Pathologist [facility] Pathology Report: SURGICAL PATHOLOGY REPORT ? [facility] Reports generated via Four Eyes interface contain original data; ? LAB however they are lacking the format of the original report. ? Caution should be taken when reading/interpreting unformatted reports. ? Name: ? MERVIN WILEY ? Accession #: ? [id number] ? : ? 1980 (Age: 28) ??F ? Collec t Date: ? 02/19/2009 ? Location: ? [facility] ? Receive Date: ? 02/19/2009 ? Provider: SAÚL H DIANA M D ? Copy to: PRICE SHAWNA FN P ? Final Pathologic Diagnosis: ? Endometrium, polypect garth and curettage: ? 1. ?Hyperplasti c endometrial polyp. ? 2. ? Focal simple hyperp lasia with no cytologic atypia. ? 3. ? Disordered prolifer ative endometrium. ? Document reviewed and electr onically signed by: ? ABDELKELSIE VALDEZ MD ? Report ??Date: 02/21/2009 17 :11 ? By the signature above, the attending physician certifies that he/she has ? personally conducted a gross and/or microscopic examination of the described ? specimens and rendered or co nfirmed the above diagnosis. ? Specimen(s) Received: ? Endometrial polyps, e ndometrial curettings ? Clinical History: ? Endometrial polyps ? Gross Description: ? Received in normal sa line labelled Violet Wiley and endometrial ?? polyps, endometrial curettin gs is a 4.0 x 3.0 x 0.8 cm aggregate of herndon-pink ?? soft tissue fragments. ??Josue e of the tissue is thin. ??The specimen is submitted ?? entirely as (A1) through (A5 ) following filtration. ??(Courtney Victor)/yanin ? End of Report ? Specimen Performing Organization Address City/State/ZIP Code Phon e Number [facility] [address] [place] [address] SERVICES [facility] [address] [place] [address] documented in this encounter Visit Diagnoses Not on filedocumented in this encounter
--- OUTSIDE RECORDS SUMMARY | 2022-04-22 08:32 | XMS_ITS | Encounter Summary ---
:1980 Author Organization [facility] Address [address] [place] [address] Care Team Providers Name Role Phone Marah Khalil NEHEMIAH Primary Care Provider Reason for Visit Reason Onset Date Comments Vaginal Bleeding 06/10/2010 spotting Encounter Details Date Type Department Care Team Description 06/10/2010 Telephone [facility] Center Reproductive Gina Henderson ginal Bleeding Medicine & Infertility ARANZA [facility]on (spot ting ) Center - [facility] [address] [place] [address] Social History Tobacco Use Types Packs/Day Years Used Date Never Assessed Sex Assigned at Date Recorded Not on file documented as of this encounter Miscellaneous Notes Telephone Encounter - Gina Henderson RN - 06/10/2010 1020 EST Pt probably has irritation from previous activity. Encouraged to call if symtoms persist, instructedto use lubrication if area is irritated. Instructed to call and schedule an appoitment if symtoms persist. Gina Henderson RN Telephone Encounter - Gina Hnederson RN - 06/10/2010 0848 EST Pt had called yesterday with vag spotting after 2 weeks of being reunited with her , [place]. Denies Urinary frequency or burning. Gina Henderson RN documented in this encounter Plan of Treatment Not on filedocumented as of this encounter Visit Diagnoses Not on filedocumented in this encounter Care Teams Cellular Equipment Installer Relationship Specialty Start Date End Date Marah Khalil FNP PCP - General 12/18/08 09/11/15 [address] [place] [phone] documented as of this encounter
--- OUTSIDE RECORDS SUMMARY | 2022-04-22 08:32 | XMS_ITS | Encounter Summary ---
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
--- OUTSIDE RECORDS SUMMARY | 2022-04-22 08:32 | XMS_ITS | Encounter Summary ---
:1980 Author Organization [facility] Address [address] [place] [address] Care Team Providers Name Role Phone SimranMarah andrea NEHEMIAH Primary Care Provider Encounter Details Date Type Department Care Team Description 08/25/2005 Before [facility] - Nuris Clifton MD Converted Visit Maple conversion FA HOUSESTAFF MAIL (Maple) [address] [facility] [address] [place] [address] [place] [address] Social History Tobacco Use Types Packs/Day Years Used Date Never Assessed Sex Assigned at Date Recorded Not on file documented as of this encounter Consult Notes Richard, Conv High Scaler - 10/01/20092042 EST DIVISION OF ENDOCRINOLOGY CONSULTATION - NEHEMIAH [facility] [address] [place] [address] Dear Ms. YusufSimran: We had the pleasure of seeing Ms. Delgado in consultation at the Endocrinology, Diabetes, and Metabolism clinic on 08/25/2005 for evaluation of her recently diagnosed pituitary tumor. As you might know, Ms. Delgado is a 24-year-old female who gives history of having noticed discharge from her breast two years back. The discharge was spontaneous and she would notice the discharge would stain her undergarments. She describes the discharge to be clear, white, and without any odor. She has not noticed any lump. She has mentioned this to her primary care physician once in the past but has not pursuedany work up then. Her menstrual cycles have been regular until the last year. Her cycles have been more spaced out for the last year, and she skipped a cycle in April 2005. She denies headache or vision changes, no nausea or vomiting. Review of symptoms: no significant change in weight, no headache or vision abnormalities, no dysphagia or dysphonia. No chest pain, shortness of breath, or palpitations. No changes in her appetite or weight. Mood is positive for anxiety for which she is treated with Klonopin. Past medical history: Anxiety on Klonopin p.r.n. Past surgical history: none. Family history: Motherage 50 has hypertension, father age 50 is healthy. She has a 23-year-old male sibling who is healthy. Social history: She lives in [facility]. She works at [employer]. 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 She is engaged, fiadelina just got back from [place] after being there for 18 months. She doesnot have children, does not smoke, and does not use alcohol. She is interested in starting a family. Menstrual cycle: Obtained menarche at age 11, regular cycles until 2 years back, her cycle shave been irregular for the last year. Contraception: she started on contraceptive pills at age 13 and continued until 17. Again resumed between age of [age]. She has not been on any OCP for the last two years. Medications today: 1. Folic acid daily 2. Klonopin 0.5 mg one p.o. q.h.s. OBJECTIVE: Blood pressure: 132/78 Pulse: 112 Weight: 154 pounds Height: 5'7 In general she is a pleasant female, anxious but in no significant distress. HEENT: No lid lag, retraction, or exophthalmus. Visual field was intact on confrontation. Neck: No thyromegaly. Skin: No hyperpigmentation, skin tags, no soft tissue enlargement. Heart: Tachycardiac. Lungs: Clear to auscultation. Abdomen: Soft. Lower extremities: No edema. Reflexes 1+ symmetric bilaterally. Review of labs sent over from primary physician's office showed prolactin level of 91.6 ng per ml (range 2.8 to 29.2), TSH 3.862 micro international units per ml (0.35 to 5.5). Review of MRI done at [facility] showed normal sized pituitary gland with no suprasellar extension. The was not enlarged. Mass identified in pituitary gland posteriorly off the midline on the left side measured 4 x 4 mm. ASSESSMENT: Ms. Delgado is a 24-year-old female presenting with galactorrhea and hyperprolactinemia. 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 It does not seem to be related to any medications, hypothyroidism, or hypothalamic source. PLAN: 1. Would repeat prolactin levels today along with a TSH, free T4, ACTH, random cortisol, IGF-1 level, As she just had breast exam, I will probably repeat another prolactin level and requested it in themorning, after abstaining from sexual intercourse or breast manipulation for at least 24 hours. She will do this at [facility] and have the results faxed to us. 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 Treating prolactinoma is known to reduce prolactin levels by 90%, tumor sites, 70%. I have given her a prescription for Dostinex 0.25 mg. She will take half tablet once a week for two weeks and if she tolerates it would go on to one tablet per week. I would have her level checked in 2-3 months after she has been on the medication and will plan to see her back in 4 months. Thank you for allowing us to participate in the care of this wonderful patient. Please do not hesitate to call if you have any questions or concerns. I saw and examined the patient with . I agree with the HPI, exam findings and the plan ofcare as outlined above. I have documented any additions/changes in the body of the note. Signed by Nigel Zaldivar MD 09/15/2005 09:06 Reviewed by JUAN C Newman 09/03/2005 11:54 Anderson Gonzalez MBBSAfshin Salsali, MD Dictated by: JUAN C Newman Nigel Zaldivar MD - JUAN C Newman A - LB Job ID: [id number] Document ID: [id number] cc: NEHEMIAH Wilson documented in this encounter Plan of Treatment Not on filedocumented as of this encounter Visit Diagnoses Not on filedocumented in this encounter Care Teams Feed Crusher Relationship Specialty Start Date End Date Marah Khalil FNP PCP - General 12/18/08 09/11/15 [address] [place] [phone] documented as of this encounter
--- OUTSIDE RECORDS SUMMARY | 2022-04-22 08:32 | XMS_ITS | Encounter Summary ---
:1980 Author Organization [facility] Address [address] [place] [address] Care Team Providers Name Role Phone Unavailable Primary Care Provider Unavailable Encounter Details Date Type Department Care Team Description 06/21/2006 Hospital Encounter [facility] - Nigel Zaldivar MD [address] [place] [phone] [facility] Yumi Clifton MD [facility] [address] [place] [address] [place] [phone] Social History Tobacco Use Types Packs/Day Years Used Date Never Assessed Sex Assigned at Date Recorded Not on file documented as of this encounter Discharge Disposition Disposition Code Departure Means Destination Auto Discharge documented in this encounter Plan of Treatment Not on filedocumented as of this encounter Procedures Procedure Name Priority Date/Time Associated Diagnosis Comme nts PROLACTIN Routine 06/28/2006 7:43 EST Results for this procedure are i n the results section. MR HEAD W/WO 06/21/2006 8:10 EST Results for this CONTRAST procedure are i n the results section. 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 ??Assess for progression of pituitary adenoma. TECHNIQUE: ??Thin section sagittal and c oronal FSE T1, coronal fat-saturated FSE T2, and post IV contra st fat-saturated coronal and sagittal FSE T1 images of the brain were performed. Dynamic IV contrast-enhanced coronal FSE T1 weighte d scans were obtained. FINDINGS: Incidental note is made of a mucus rete ntion cyst in the right sphenoid sinus. ??There is no expansion of the sella turcica. ??There is a hypo-enhancing lesion within the pi tuitary gland posterior and to the left of midline. ??It measures ap proximately 4 mm in diameter, unchanged from prior study. ??No suprase llar abnormality is identified. IMPRESSION: ??Stable appearance of the 4 mm pituitary microadenoma. D: ??06/21/06 T: ??06/22/06 /dw I have personally reviewed the images an d the above interpretation and agree with the findings. Procedure Note Ruthie Mccormick MD / Kym Pimentel MD - 02/08/2009 25 YEAR OLD FEMALE WITH PROLACTIN MICRO ADENOMA MRI OF THE PITUITARY GLAND: 06/21/06 HISTORY: 25-year-old female with prolact in microadenoma. Assess for progression of pituitary adenoma. TECHNIQUE: Thin section sagittal and cor onal FSE T1, coronal fat-saturated FSE T2, and post IV contra st fat-saturated coronal and sagittal FSE T1 images of the brain were performed. Dynamic IV contrast-enhanced coronal FSE T1 weighte d scans were obtained. FINDINGS: Incidental note is made of a mucus rete ntion cyst in the right sphenoid sinus. There is no expansion of the sella turcica. There is a hypo-enhancing lesion within the pi tuitary gland posterior and to the left of midline. It measures appr oximately 4 mm in diameter, unchanged from prior study. No suprasell ar abnormality is identified. IMPRESSION: Stable appearance of the 4 m m pituitary microadenoma. /alden I have personally reviewed the images an d the above interpretation and agree with the findings. Performing Organization Address City/State/ZIP Code Phon e Number [facility] [address] [facility] [address] [facility] [address] [place], [place] [address] documented in this encounter Visit Diagnoses Not on filedocumented in this encounter
--- OUTSIDE RECORDS SUMMARY | 2022-04-22 08:32 | XMS_ITS | Encounter Summary ---
:1980 Author Organization [facility] Address [address] [place] [address] Care Team Providers Name Role Phone Marah Khalil NEHEMIAH Primary Care Provider Encounter Details Date Type Department Care Team Description 06/20/2007 Results Only [facility] - Emmy brooks, Provider, conversion [address] [facility] [place] [address] Social History Tobacco Use Types Packs/Day Years Used Date Never Assessed Sex Assigned at Date Recorded Not on file documented as of this encounter Plan of Treatment Not on filedocumented as of this encounter Procedures Procedure Name Priority Date/Time Associated Diagnosis Comme nts PROLACTIN Routine 06/20/2007 8:39 EST Results for this procedure are i n the results section . LH Routine 06/20/2007 8:39 EST Results for this procedure are i n the results section . FSH Routine 06/20/2007 8:39 EST Results for this procedure are i n the results section . CORTISOL Routine 06/20/2007 8:39 EST Results for this procedure are i n the results section . documented in this encounter Results PROLACTIN (06/20/2007 8:39 EST) Pathologist Sig nature Prolactin 24.8 ng/ml [facility] Comment: Non-: 2.8-29.2 : 9.7-208.5 Post Menopausal: 1.8-20.3 Specimen Performing Organization Address City/State/ZIP Code Phon e Number [facility] [address] [place] [address] SERVICES [facility] [address] [place] [address] LH (06/20/2007 8:39 EST) Pathologist Sig nature LH 3.2 mIU/ml [facility] Comment: Follicular: 1-18 Mid-Cycle Peak: 15-80 Luteal: 0.5-18 Postmenopausal: 12-55 Specimen Performing Organization Address [facility] Phon e Number [facility] [address] [place] [address] SERVICES [facility] [address] [place] [address] FSH (06/20/2007 8:39 EST) Pathologist Sig nature FSH 5.3 mIU/ml [facility] Comment: Follicular: 2-11 Mid-Cycle Peak: 3.4-35 Luteal: 1-9 Postmenopausal: 25-120 Specimen Performing Organization Address [facility] Phon e Number [facility] [address] [place] [address] SERVICES [facility] [address] [place] [address] CORTISOL (06/20/2007 8:39 EST) Pathologist Sig nature Cortisol 10 ug/dl [facility] Comment: 7-9a.m.=4.3-22.4 3-5p.m.=3.1-16.7 Specimen Performing Organization Address [facility] Phon e Number [facility] [address] [place] [address] SERVICES [facility] [address] [place] [address] documented in this encounter Visit Diagnoses Not on filedocumented in this encounter Care Teams Operations Associate Relationship Specialty Start Date End Date Marah Khalil FNP PCP - General 12/18/08 09/11/15 4 DI[place] [phone] documented as of this encounter
--- OUTSIDE RECORDS SUMMARY | 2022-04-22 08:32 | XMS_ITS | Encounter Summary ---
:1980 Author Organization [facility] Address [address] [place] [address] Care Team Providers Name Role Phone Marah Khalil NEHEMIAH Primary Care Provider Reason for Visit Reason Comments Infertility bleeding between cycles/ and after intercourse/interested in preg Encounter Details Date Type Department Care Team Description 01/19/2011 Office Visit [facility] Saúl Pena, Screening examination for venereal disease (Primary Dx); Reproductive Medicine Safe And Vault Mechanic exam; & [facility] - [address] [place] [address] ertility [facility] [address] [place], [place] [phone] Social History Tobacco Use Types Packs/Day Years Used Date Never Smoker Alcohol Use Standard Drinks/Week Comments No 0 (1 standard drink = 0.6 oz pure alcoho l) Sex Assigned at Date Recorded Not on file documented as of this encounter Last Filed Vital Signs Vital Sign Reading Time Taken Comments Blood Pressure 120/70 01/19/2011 1526 EDT Pulse - - Temperature - - Respiratory Rate - - Oxygen Saturation - - Inhaled Oxygen Concentration - - Weight 66.2 kg (146 lb) 01/19/2011 1526 EDT Height 170.2 cm (5' 7) 01/19/2011 1526 EDT Body Mass Index 22.87 01/19/2011 1526 EDT documented in this encounter Discharge Disposition Disposition Code Departure Means Destination Auto Discharge documented in this encounter Progress Notes Chrissie Mcfadden - 01/19/2011 1541 EDT S/O: 30 y/o here for evaluation of abnormal bleeding and infertility work-up. Patient and have been trying to conceive for the past 7 months since her returned from [place]. Prior to his deployment they were actively trying for ~ 2 years and she underwent a HSG and TVUS here in 2008 as a work up for infertility. The HSG revealed endometrial polyps for which she underwent surgery with Dr Pena in 2008, the TVUS was overall unremarkable. They were told to try for another 3 months and if no conception at that point would consider CC/HcG/IUI. Patient did notfollow up as was then deployed. Since her has returned they have again been actively trying. She uses BBT and ovulation predictor kits to time intercourse. She and partner have sex the 2 days prior to ovulation and ~ 1-2 daysafter. Five months ago she noted a change in her menstrual cycle. Her periods changed from 28 -->25 days. They last 4-5 days, heavy during the second day and painful menstrual cramps. She has also noted right sided pain associated with ovulation intermittently over the past 7 months. Bleeding with intercourse since husbands return is positional and associated with time of ovulation. Has history of UTI's, most recent in October. Past medical history significant for microadenoma. Prolactin level 9.6 in June 2011. Pelvis Exam: Chaperoned by Gina COBIAN. Normal external genitalia. Vaginals wall are pink, moist and have ruggae. Cervix does not appear nulliparous, and has evidence of prior manipulation. Patient at the end of her menstrual cycle so some blood is obscuring the os. No obvious evidence of erythema. Uterus is of appropriate size, no ovarian masses palpated. 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 - Pelvic exam done today along with GC/Chlamydia swab and pap smear - Patient has now been trying for a significant period of time and warrants more aggressive therapy.Discussed CC/HCG/IUI and provided information. Patient to contact Gina at the beginning of her next menstrual cycle and start first CC/HCG/IUI cycle at that time. Will pre-certify today. Patient willschedule injection teaching course. Patient seen by me. Critical medical information obtained. I agree with assessment and plan as recorded. (D[facility]) documented in this encounter Plan of Treatment Scheduled Orders Name Type Priority Associated Diagnoses Order S chedule PAP TEST- ORDER ONLY Pathology Routine Safe And Vault Mechanic exam Ordered : 01/19/2011 documented as of this encounter Procedures Procedure Name Priority Date/Time Associated Diagnosis Comme nts CHLAMYDIA/N. Routine 01/19/2011 16:33 Screening Results for this GONORRHOEAE EDT examination for procedure ar e in AMPLIFIED RNA venereal disease the result s section. documented in this encounter Results CHLAMYDIA/GC AMPLIFIED (01/19/2011 16:33 EDT) Specimen Endocervix [facility] Description LAB Chlamydia Result No Chlamydia [facility] trachomatis DNA LAB detected by help desk intern mediated amplification. GC Result No Neisseria [facility] gonorrhoeae DNA LAB detected by help desk intern mediated amplification. Specimen Other (qualifier value) Performing Organization Address City/State/ZIP Code Phon e Number [facility] [address] [place] [address] SERVICES [facility] [address] [place] [address] documented in this encounter Visit Diagnoses Diagnosis Screening examination for venereal disea se - Primary Safe And Vault Mechanic exam Routine gynecological examination Infertility female Female infertility of unspecified origin documented in this encounter Care Teams Brake Repairer Railroad Relationship Specialty Start Date End Date Marah Khalil FNP PCP - General 12/18/08 09/11/15 4 [place] [phone] documented as of this encounter
--- OUTSIDE RECORDS SUMMARY | 2022-04-22 08:32 | XMS_ITS | Encounter Summary ---
:1980 Author Organization [facility] Address [address] [place] [address] Care Team Providers Name Role Phone aMrah Khalil Primary Care Provider Encounter Details Date Type Department Care Team Description 01/13/2010 Hospital Encounter [facility] - Dhruv price, Rafat Lopez MD [address] [place] [address] [phone] [place] [address] Social History Tobacco Use Types Packs/Day Years Used Date Never Assessed Sex Assigned at Date Recorded Not on file documented as of this encounter Medications at Time of Discharge Medication Sig Dispensed Refills Start Date End Date folic acid (FOLVITE) 1 mg Take 1 mg by mouth 0 tablet at bedtime. bromocriptine (PARLODEL) Take 5 mg by mouth 0 06/24/2010 2.5 mg tablet at bedtime. clonazepam (KLONOPIN) 0.5 Take 0.5 mg by 0 06/15/2010 mg tablet mouth daily. documented as of this encounter Discharge Disposition Disposition Code Departure Means Destination Home or Self Care documented in this encounter Plan of Treatment Not on filedocumented as of this encounter Visit Diagnoses Not on filedocumented in this encounter Care Teams Bituminous Paving Machine Operator Relationship Specialty Start Date End Date Marah Khalil FNP PCP - General 12/18/08 2 [address] [place] [phone] documented as of this encounter
--- OUTSIDE RECORDS SUMMARY | 2022-04-22 08:32 | XMS_ITS | Encounter Summary ---
:1980 Author Organization [facility] Address [address] [place] [address] Care Team Providers Name Role Phone Unavailable Primary Care Provider Unavailable Encounter Details Date Type Department Care Team Description 07/09/2008 Hospital Encounter [facility] - Saúl Pena MD [id number] [place] [phone] Social History Tobacco Use Types Packs/Day Years Used Date Never Assessed Sex Assigned at Date Recorded Not on file documented as of this encounter Discharge Disposition Disposition Code Departure Means Destination Auto Discharge documented in this encounter Plan of Treatment Not on filedocumented as of this encounter Procedures Procedure Name Priority Date/Time Associated Comments Diagnosis FL HYSTEROSALPINGOGRAM 07/09/2008 14:25 R esults for this EST procedure are i n the results section. documented in this encounter Results FL HYSTEROSALPINGOGRAM (07/09/2008 14:25 EST) Anatomical Region Laterality Modality Other Specimen Narrative [facility] - 12/16/2008 9: 26 EDT Infertility FL HYSTEROSALPINGOGRAM ??Jul 09, 2008 2:2 5:00 PM Signs and Symptoms: ??Infertility Comparison: None Findings: There is an irregularity to th e uterine mucosal surface which could represent mucus within the u terine cavity. There is a changeable filling defect in the lower u terine segment which could represent a uterine polyp. Bilateral spill is seen from the fallopi an tubes. Impression: 1. Findings which could represent a poly p in the lower uterine segment. Refer to the HSG procedure note for furt her recommendations. I have personally reviewed the images an d the above interpretation and agree with the findings. Procedure Note Epi Child MD / Rudy Sommers MD - 12/16/2008 Infertility FL HYSTEROSALPINGOGRAM Jul 09, 2008 2:25: 00 PM Signs and Symptoms: Infertility Comparison: None Findings: There is an irregularity to th e uterine mucosal surface which could represent mucus within the u terine cavity. There is a changeable filling defect in the lower u terine segment which could represent a uterine polyp. Bilateral spill is seen from the fallopi an tubes. Impression: 1. Findings which could represent a poly p in the lower uterine segment. Refer to the HSG procedure note for furt her recommendations. I have personally reviewed the images an d the above interpretation and agree with the findings. Performing Organization Address City/State/ZIP Code Phon e Number [facility] [address] [facility] [address] [facility] [address] [place], [place] [address] documented in this encounter Visit Diagnoses Not on filedocumented in this encounter
--- OUTSIDE RECORDS SUMMARY | 2022-04-22 08:32 | XMS_ITS | Encounter Summary ---
:1980 Author Organization [facility] Address [address] [place] [address] Care Team Providers Name Role Phone Marah Khalil Primary Care Provider Karl Saab MD Primary Care Provider None, Provider Primary Care Provider Unavailable Reason for Visit Reason Comments Other Encounter Details Date Type Department Care Team Description 07/19/2011 Refill [facility] Felix Saunders, Other Endocrinology - [facility] DO [address] [employer] [place], [place] [address] [address] [place] [address] (Wo rk) Social History Tobacco Use Types Packs/Day Years Used Date Never Smoker Alcohol Use Standard Drinks/Week Comments No 0 (1 standard drink = 0.6 oz pure alcoho l) Sex Assigned at Date Recorded Not on file documented as of this encounter Ordered Prescriptions Prescription Sig Dispensed Refills Start Date End Date bromocriptine (PARLODEL) take 2 tablets by 180 Tab 3 07/0107/26/2012 2.5 mg tablet mouth at bedtime documented in this encounter Plan of Treatment Not on filedocumented as of this encounter Visit Diagnoses Not on filedocumented in this encounter Discontinued Medications Medication Sig Discontinue Reason Start Date End Date bromocriptine (PARLODEL) Take 2 Tabs by Reorder 06/24/2010 1 09/19/2010 2.5 mg tablet mouth at bedtime. documented as of this encounter Care Teams Buyer Intern Relationship Specialty Start Date End Date Marah Khalil FNP PCP - General 12/18/08 09/11/15 4 [address] [place] [phone] Karl Saab MD PCP - General 09/12/15 2 [address] [place] [phone] None, Provider PCP - General 09/10/16 documented as of this encounter
--- OUTSIDE RECORDS SUMMARY | 2022-04-22 08:32 | XMS_ITS | Encounter Summary ---
:1980 Author Organization [facility] Address [address] [place] [address] Care Team Providers Name Role Phone Unavailable Primary Care Provider Unavailable Encounter Details Date Type Department Care Team Description 06/26/2007 Hospital Encounter [facility] - Mya Velazco MD PhD [address] [place] [address] Felix Evans, DO [address] [place] [address] [address], [place] [address] Social History Tobacco Use Types Packs/Day Years Used Date Never Assessed Sex Assigned at Date Recorded Not on file documented as of this encounter Discharge Disposition Disposition Code Departure Means Destination Auto Discharge documented in this encounter Plan of Treatment Not on filedocumented as of this encounter Visit Diagnoses Not on filedocumented in this encounter
--- OUTSIDE RECORDS SUMMARY | 2022-04-22 08:32 | XMS_ITS | Encounter Summary ---
:1980 Author Organization [facility] Address [address] [place] [address] Care Team Providers Name Role Phone Marah Khalil Primary Care Provider Reason for Visit Reason Onset Date Comments Other 11/24/2010 Encounter Details Date Type Department Care Team Description 11/24/2010 Telephone [facility] Women's Candy Kimbrough RN Other Services - [facility] [address] [place], [place] [address] Social History Tobacco Use Types Packs/Day Years Used Date Never Smoker Alcohol Use Standard Drinks/Week Comments No 0 (1 standard drink = 0.6 oz pure alcoho l) Sex Assigned at Date Recorded Not on file documented as of this encounter Miscellaneous Notes Telephone Encounter - Candy Kimbrough RN - 11/24/2010 1240 EDT Call from pt, left message what is the next step? . Called and left message for pt to call office back. documented in this encounter Plan of Treatment Not on filedocumented as of this encounter Visit Diagnoses Not on filedocumented in this encounter Care Teams Hog Stomach Preparer Relationship Specialty Start Date End Date Marah Khalil FNP PCP - General 12/18/08 09/11/15 [address] [place] [phone] documented as of this encounter
--- OUTSIDE RECORDS SUMMARY | 2022-04-22 08:32 | XMS_ITS | Encounter Summary ---
:1980 Author Organization [facility] Address [address] [place] [address] Care Team Providers Name Role Phone Marah Khalil Primary Care Provider Karl Saab MD Primary Care Provider None, Provider Primary Care Provider Unavailable Encounter Details Date Type Department Care Team Description 06/30/2006 Hospital Encounter [facility] - Pascual Ruano MD [address] [address] [address] [place] [address] (Wo rk) Social History Tobacco [...] on filedocumented in this encounter Care Teams Franchise Development Manager Relationship Specialty Start Date End Date Marah Khalil FNP PCP - General 12/18/08 09/11/15 [address] [place] [phone] Karl Saab MD PCP - General 09/12/15 09/09/16 [address] [place], [place] [id number] None, Provider PCP - General 09/10/16 documented as of this encounter
--- OUTSIDE RECORDS SUMMARY | 2022-04-22 08:32 | XMS_ITS | Encounter Summary ---
:1980 Author Organization [facility] Address [address] [place] [address] Care Team Providers Name Role Phone Marah Khalil NEHEMIAH Primary Care Provider Encounter Details Date Type Department Care Team Description 02/16/2011 Orders Only [facility] Center Reproductive Gina Henderson of Medicine & Infertility ARANZA Duron menst ruation (Primary Center - [facility] [place] [facility]) [address] [place] [address] Social History Tobacco Use Types Packs/Day Years Used Date Never Smoker Alcohol Use Standard Drinks/Week Comments No 0 (1 standard drink = 0.6 oz pure alcoho l) Sex Assigned at Date Recorded Not on file documented as of this encounter Progress Notes Gina Henderson RN - 02/16/2011 7370 EDT Date: 02/16/2011 Time: 1500 Phone #: Referring Provider: MADISYN Provider: : 1 Para: Abort: Ectopic: 0 Miscarriage: 0 How conceived? Spontaneous X CC/HCG/IUI Other LMP: 01/16/2011 GA: Blood Type: A pos Current Medications: Folic acid/PNV Allergies: NKA Ht: 5'7 Wt: 150lb Risk Factors: Abdominal pain or vaginal bleeding? cramping Previous pelvic or tubal surgery or ruptured appendix? no History of pelvic infections? chlamyida 15 years ago Previous tubal ? NO Do you have an IUD? 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 Date: Time: Phone #: Referring Provider: MADISYN Provider: : Para: Abort: Ectopic: Miscarriage: How conceived? Spontaneous CC/HCG/IUI Other LMP: GA: Blood Type: Current Medications: Allergies: Ht: Wt: Risk Factors: Abdominal pain or vaginal bleeding? Previous pelvic or tubal surgery or ruptured appendix? History of pelvic infections? Previous tubal ? Do you have an IUD? Do you have a history of infertility for > 1 year? Do you have a chronic medical illness? Previous outcomes: Date: Beta HCG Levels Date: Ultrasound Scheduled? documented in this encounter Plan of Treatment Not on filedocumented as of this encounter Visit Diagnoses Diagnosis Absence of menstruation - Primary documented in this encounter Care Teams Life Care Planner Relationship Specialty Start Date End Date Marah Khalil FNP PCP - General 12/18/08 09/11/15 [address] [place] [phone] documented as of this encounter
--- OUTSIDE RECORDS SUMMARY | 2022-04-22 08:32 | XMS_ITS | Encounter Summary ---
:1980 Author Organization [facility] Address [address] [place] [address] Care Team Providers Name Role Phone Marah Khalil NEHEMIAH Primary Care Provider Reason for Visit Reason Onset Date Comments Medications Refill 06/24/2010 Vadim -- doctor w as supposed to have this refilled for her right after last appt. she is all out and needs it refilled today Encounter Details Date Type Department Care Team Description 06/24/2010 Refill [facility] EugenecharlieFelix Medic ations Refill Endocrinology - Namita Hernandez DO ([place] -- doctor was [address] [facility] supposed to have this [place], [place] [address] [address] refilled for her right [phone] [place], [place] [phone] all out and needs it [phone] (Wo rk) refilled today) Social History Tobacco Use Types Packs/Day Years Used Date Never Assessed Sex Assigned at Date Recorded Not on file documented as of this encounter Ordered Prescriptions Prescription Sig Dispensed Refills Start Date End Date bromocriptine (PARLODEL) Take 2 Tabs by 180 Tab 3 010 07/19/2011 2.5 mg tablet mouth at bedtime. documented in this encounter Miscellaneous Notes Telephone Encounter - Amilcar Blanco - 06/24/2010 0838 EST Parlodel 2.5 mg (2) Nightly reordered at this time and e scripted. AMILCAR BLANCO, RN documented in this encounter Plan of Treatment Not on filedocumented as of this encounter Visit Diagnoses Not on filedocumented in this encounter Discontinued Medications Medication Sig Discontinue Reason Start Date End Date bromocriptine (PARLODEL) Take 5 mg by mouth Reorder 06/24/2010 2.5 mg tablet at bedtime. documented as of this encounter Care Teams Savings Counselor Relationship Specialty Start Date End Date Marah Khalil FNP PCP - General 12/18/08 09/11/15 [address] [place] [phone] documented as of this encounter
--- OUTSIDE RECORDS SUMMARY | 2022-04-22 08:32 | XMS_ITS | Encounter Summary ---
:1980 Author Organization [facility] Address [address] [place] [address] Care Team Providers Name Role Phone Marah Khalil NEHEMIAH Primary Care Provider Reason for Referral Laboratory Services (Routine) - Closed Specialty Diagnoses / Procedures Referred By Contact Refer red To Contact Diagnoses Amenorrhea Lulú Hawley RN Procedures HCG Referral ID Status Reason Start Date Expiration Date Visits Requ ested Visits Authorized [id number] Closed 02/16/2011 1 1 Reason for Visit Reason Onset Date Comments Labs Only 02/16/2011 Encounter Details Date Type Department Care Team Description 02/16/2011 Telephone [facility] Center Reproductive Lulú Hawley, ARANZA Labs Only [facility] [place] [address] [place] [address] Social History Tobacco Use Types Packs/Day Years Used Date Never Smoker Alcohol Use Standard Drinks/Week Comments No 0 (1 standard drink = 0.6 oz pure alcoho l) Sex Assigned at Date Recorded Not on file documented as of this encounter Miscellaneous Notes Telephone Encounter - Lulú Hawley - 02/16/2011 1105 EDT Telephone message left by patient requesting Beta HCG order to be sent to [facility]. She is late for her menses. Message left for patient to call back. Order faxed. documented in this encounter Plan of Treatment Scheduled Orders Name Type Priority Associated Diagnoses Order S chedule HCG Lab Routine Amenorrhea Expected: 02/16 (Approximate), Expires: 02/17/2012 documented as of this encounter Visit Diagnoses Diagnosis Amenorrhea - Primary Absence of menstruation documented in this encounter Care Teams Motor Vehicles Inspector Relationship Specialty Start Date End Date Marah Khalil FNP PCP - General 12/18/08 09/11/15 [address] [place] [phone] documented as of this encounter
--- OUTSIDE RECORDS SUMMARY | 2022-04-22 08:32 | XMS_ITS | Encounter Summary ---
:1980 Author Organization [facility] Address [address] [place] [address] Care Team Providers Name Role Phone Marah Khalil Primary Care Provider Encounter Details Date Type Department Care Team Description 05/21/2009 Abstract Used for ABSTRACTING Data Marah Khalil FNP [phone] [facility] [place] [phone] (Wo rk) Social History Tobacco Use Types Packs/Day Years Used Date Never Assessed Sex Assigned at Date Recorded Not on file documented as of this encounter Plan of Treatment Not on filedocumented as of this encounter Visit Diagnoses Not on filedocumented in this encounter Care Teams Distribution Estimator Relationship Specialty Start Date End Date Marah Khalil FNP PCP - General 12/18/08 09/11/15 [address] [place] [phone] documented as of this encounter
--- OUTSIDE RECORDS SUMMARY | 2022-04-22 08:32 | XMS_ITS | Encounter Summary ---
:1980 Author Organization [facility] Address [address] [place] [address] Care Team Providers Name Role Phone Unavailable Primary Care Provider Unavailable Encounter Details Date Type Department Care Team Description 11/05/2008 Hospital Encounter [facility] - Saúl Pena MD [id number] [place] [phone] Social History Tobacco Use Types Packs/Day Years Used Date Never Assessed Sex Assigned at Date Recorded Not on file documented as of this encounter Discharge Disposition Disposition Code Departure Means Destination Auto Discharge documented in this encounter Plan of Treatment Not on filedocumented as of this encounter Visit Diagnoses Not on filedocumented in this encounter
--- OUTSIDE RECORDS SUMMARY | 2022-04-22 08:32 | XMS_ITS | Encounter Summary ---
:1980 Author Organization [facility] Address [address] [place] [address] Care Team Providers Name Role Phone Marah Khalil NEHEMIAH Primary Care Provider Reason for Visit Reason Onset Date Comments Amenorrhea 02/15/2011 pt called to report 2 poisitive UPT's. Encounter Details Date Type Department Care Team Description 02/15/2011 Telephone [facility] Reproductive Yolanda Khalil menorrhea (pt called Medicine & Infertility Lizzy Canales MBA to report 2 poisitive Center - [facility] [address] [facility] [place], [place] [address] [place] [address] [phone] (Wo rk) Social History Tobacco Use Types Packs/Day Years Used Date Never Smoker Alcohol Use Standard Drinks/Week Comments No 0 (1 standard drink = 0.6 oz pure alcoho l) Sex Assigned at Date Recorded Not on file documented as of this encounter Miscellaneous Notes Telephone Encounter - Gina Henderson RN - 02/15/2011 1020 EDT Date: 02/15/2011 Time: 1000 Phone #: [phone] Referring Provider: MADISYN Provider: : Para: Abort: [...] Date: Beta HCG Levels Date: Ultrasound Scheduled? Date: Time: Phone #: Referring [...] on filedocumented in this encounter Care Teams Cutter Brake Lining Relationship Specialty Start Date End Date Marah Khalil FNP PCP - General 12/18/08 09/11/15 [address] [place] [phone] documented as of this encounter
--- OUTSIDE RECORDS SUMMARY | 2022-04-22 08:32 | XMS_ITS | Encounter Summary ---
:1980 Author Organization [facility] Address [address] [place] [address] Care Team Providers Name Role Phone Marah Khalil NEHEMIAH Primary Care Provider Karl Saab MD Primary Care Provider None, Provider Primary Care Provider Unavailable Encounter Details Date Type Department Care Team Description 04/07/[address] [facility] - Alena Peacock, Only [facility] Lab - Main [facility] [address] [place] [address] [facility] [address] [place] [address] Social History Tobacco Use Types [...] Associated Diagnosis Comme nts SURGICAL PATHOLOGY Routine 04/07/2011 Results f or this procedure are i n the results section . documented in this encounter Results SURGICAL PATHOLOGY (04/07/2011) Specimen Narrative [facility] - 011 12:18 EDT Name: VIOLET WILEY ? : 76 ?Age/Sex: 38/F ?Unit#: [id number] ? Loc: SDS ? Status: DEP SDC ?? Reg Date: 04/07/11 ? Pt.Phone Number : ? Specimen: [id number] ? STA TUS: SOUT ?Spec Date:04/07/11 ? Physician Copies: ?Alena Peacock MD ?? Tissues: A ?? Female Reproductive System (UTERUS) ?Marah Khalil CPT: 55735 ?? Units: ??1 ?FINAL DIAGNOSIS ? Uterine contents, suction curetta ge; ? - Chorionic villi identified. ? No sign of molar gestation. ? Reactive decidual tissue. ? GROSS DESCRIPTION ? Received in formalin and labeled products of conception is a 50 cc aggregate ? of membranous tissue fragments. ? ?No definite parts are identified. ??No ? enlarged villi are identified. ?? r.s. BT ?? PREOP DX/CLINICAL HISTORY ?Missed incomplete AB. Signed ____(signature on file)____ Oscar Mayer M.D. 04/08/11 ?? By the signature above, the attending ph ysician certifies that he/she has personally conducted a gross and/or microscopic exa mination of the described specimens and rendered or confirmed the above diagnosi s. Test Performed by [facility], [address] [place] [address] Data Analysis Manager: Sheron Pizarro MD PHD Performing Organization Address City/State/ZIP Code Phon e Number [facility] [address] [place] [address] LAB documented in this encounter Visit Diagnoses Not on filedocumented in this encounter Care Teams Inflatable Buildings Laminator Relationship Specialty Start Date End Date Marah Khalil FNP PCP - General 12/18/08 09/11/15 [address] [place] [address] Karl Saab MD PCP - General 09/12/15 09/09/16 [address] [place] [address] None, Provider PCP - General 09/10/16 documented as of this encounter
--- OUTSIDE RECORDS SUMMARY | 2022-04-22 08:32 | XMS_ITS | Encounter Summary ---
:1980 Author Organization [facility] Address [address] [place] [address] Care Team Providers Name Role Phone Marah Khalil NEHEMIAH Primary Care Provider Reason for Referral Laboratory Services (Routine) - Closed Specialty Diagnoses / Procedures Referred By Contact Refer red To Contact Diagnoses state, incidental Lulú Hawley RN Procedures HCG Referral ID Status Reason Start Date Expiration Date Visits Requ ested Visits Authorized [id number] Closed 02/19/2011 1 1 Reason for Visit Reason Onset Date Comments Labs Only 02/19/2011 Encounter Details Date Type Department Care Team Description 02/19/2011 Telephone [facility] Center Reproductive Lulú Hawley, ARANZA Labs Only Medicine & Infertility Center - [facility] [address] [place] [address] Social History Tobacco Use Types Packs/Day Years Used Date Never Smoker Alcohol Use Standard Drinks/Week Comments No 0 (1 standard drink = 0.6 oz pure alcoho l) Sex Assigned at Date Recorded Not on file documented as of this encounter Miscellaneous Notes Telephone Encounter - Lulú Hawley - 02/19/2011 1628 EDT Patient informed that her Beta HCG increased from 830 to 1488 in 48 hours. She will get repeat Beta HCG at [facility] tomorrow per Dr. Richards. Ectopic precautions reviewed with patient. elephone Encounter - Lulú Hawley - 02/19/2011 1345 EDT Telephone call placed to patient. Message left on phone to call back to discuss plan. Patient will need repeat HCG tomorrow. elephone Encounter - Ronald Richards MD - 02/19/2011 1231 EDT Yes, we will need to repeat this in 48hrs, and continue to repeat every 48hrs if it continues to fail to rise <50%. Thanks. Salomón Richards M.D. Reproductive Endocrinology and Infertility Fellow elephone Encounter - Lulú Hawley - 02/19/2011 1038 EDT Telephone call placed to patient's primary care office, [facility] to get results of most recent HCG. HCG nino from 830 to 1488 in 48 hours. Will review with MD. documented in this encounter Plan of Treatment Scheduled Orders Name Type Priority Associated Diagnoses Order S chedule HCG Lab Routine state, incidental E xpected: 02/19/2011 (Approximate), Expires: 2011 documented as of this encounter Visit Diagnoses Diagnosis state, incidental - Primary documented in this encounter Care Teams Sap Trainer Relationship Specialty Start Date End Date Marah Khalil FNP PCP - General 12/18/08 09/11/15 [address] [place] [phone] documented as of this encounter
--- OUTSIDE RECORDS SUMMARY | 2022-04-22 08:32 | XMS_ITS | Encounter Summary ---
:1980 Author Organization [place] [address] Care Team Providers Name Role Phone Julieta Odell VAIBHAV Primary Care Provider [phone] Reason for Visit Auth/Cert Specialty Diagnoses / Procedures Referred By Contact Refer red To Contact Diagnoses Polyp of colon polyp removal Procedures PRO ENDOSCOPIC US EXAM, ESOPH PRO ANESTH, COMBINED UPPER OR LOWER ENDOSCOPY UPPER EUS- ENDOSCOPIC ULTRASOUND Referral ID Status Reason Start Date Expiration Date Visits Requ ested Visits Authorized [id number] 1 1 Encounter Details Date Type Department Care Team Description 01/23/2021 Anesthesia Event Gastroenterology at [facility] [place] Hector Mcdaniel, [facility] [place] [address] [facility] [phone] ANESTHESIOLOGY [place], [place] [address] Anesthesia Record Procedure Summary Procedure Name Responsible Anesthesia Start Anesthesia Stop Anesthesiologist Time Time UPPER EUS- Hector Mcdaniel MD 01/23/21 1032 01/23/21 11 03 ENDOSCOPIC ULTRASOUND (N/A Trunk) Events Date Time Event Comment 01/23/2021 1018 1032 Start 1034 AN Verify 1034 An Start Data 1040 An Induction 6 L/min O2 via P OM. Smooth IV induction; spontaneous vent ilation maintained. 1041 Anesthesia Ready 1044 Procedure Start 1057 Procedure Stop 1058 an stop data 1102 Recovery or ICU Handoff Patient care was transferred to the destination unit staff after review of the patient's medica l history, current anesthetic/surgi kassidy status and plan, according to the Provider Handoff Checklist. 1103 Stop Patient awake, a lert, and oriented; actively conversing with staff. Spontaneous ventilation with out issue. VSS. Full report given to OIL BOILER . Name Total IV Lidocaine 100 mg Propofol 140 mg Propofol INF 186.76 mg lactated ringers infusion 300 mL Agents Name O2 Air N2O O2 Auxiliary Flowmeter 1 Blood No blood administrations on file. Lines, Drains, and Airways Type Details Placement Removal Incision 04/12/20; 0020; groin; 04/12/20 0020 by Shlomo, 03/29/22 1715 by non-laparascopic puncture; ARANZA Pang Dierdre L angiogram with intervention; 03/29/22 (LDA cleanup utility RA#[id number]); 1715 (LDA cleanup utility RA#[id number]) Incision 05/06/20; 1213; lower 05/06/20 1213 by Malnati, 03/29/22 1715 by quadrant; non-laparascopic ARANZA Muniz Dierdre L puncture; 03/29/22 (LDA cleanup utility RA#[id number]); 1715 (LDA cleanup utility RA#[id number]) PIV 01/23/21; 1025; cephalic 01/23/21 1025 by Manolo ariza, 05/06/21 1650 by vein (lateral side of arm), ARANZA Hahn Andrea right; [id number] catheter system; Anatomical Landmarks; 20 gauge; distraction, intradermal injection, tolerated well; 05/06/21 (LDA Cleanup utility RA#[id number]); 1650 (LDA Cleanup utility RA#[id number]) documented in this encounter Social History Tobacco Use Types Packs/Day Years Used Date Never Smoker Smokeless Tobacco: Never Used Comments: never Alcohol Use Standard Drinks/Week Comments Not Currently 10 (1 standard drink = 0.6 oz pure alcoh ol) last drink apr 11 2020 Alcohol Habits Answer Date Recorded How often do you have a drink containing 4 or more times a w [place] 06/21/2020 alcohol? How many drinks containing alcohol do you have 1 or 2 06/21/2020 on a typical day when you are drinking? How often do you have six or more drinks on one Not asked 06/21/2020 occasion? Comment: last drink apr 11 2020 01/23/2021 Sex Assigned at Date Recorded Not on file documented as of this encounter OR Notes Anesthesia Postprocedure Evaluation - Hector Mcdaniel MD - 01/23/2021 11:22 AM EDT Department of Anesthesiology Post-procedure Note Patient: Violet Cowan Procedure Summary Date: 01/23/21 Room / Location: [facility] ENDO 2 / [facility] ENDOSCOPY Anesthesia Start: 1032 Anesthesia Stop: 1103 Procedures: UPPER EUS- ENDOSCOPIC ULTRASOUND (N/A Trunk) EGD, UPPER GI ENDOSCOPY (N/A Trunk) Diagnosis: (polyp removal) Surgeons: Nabor Joseph MD Responsible Provider: Hector Mcdaniel MD Anesthesia Type: MAC ASA Status: 3 All Anesthesia Providers: Anesthesiologist: Hector Mcdaniel MD FERRY ENGINEER: Tessie Brown CRNA Vitals Value Taken Time BP 113/78 01/23/21 1120 Temp Pulse Resp SpO2 100 % 01/23/21 1122 Pain Level Vitals shown include unvalidated device data. Patient [facility] Level of Consciousness: Awake and Alert Pain Management: Satisfactory Analgesia PONV: None Cardiovascular Status: At Baseline and Hemodynamically Stable Respiratory Status: At Baseline and Room Air Postoperative Fluid Status: Intravascular EUvolemia Possible Anesthetic Complications: NONE apparent at time of evaluation Final Primary Anesthesia Type: MAC (The anesthetic type performed was the same as planned.) Comments: HECTOR MCDANIEL MD Anesthesia Preprocedure Evaluation - Hector Mcdaniel MD - 01/23/2021 10:16 AM EDT Pre-Anesthesia Evaluation for: Violet Cowan a 40 y.o. female. Procedure(s): UPPER EUS- ENDOSCOPIC ULTRASOUND Patient Active Problem List Diagnosis ??? UGIB (upper gastrointestinal bleed) ??? Alcoholic hepatitis with ascites ??? Alcoholic hepatitis ??? Jaundice ??? GI bleed Past Medical History: Diagnosis Date ??? Cirrhosis, alcoholic ??? UGIB (upper gastrointestinal bleed) gastric ulcer 04/2020 Past Surgical History: Procedure Laterality Date ??? IR ARTERIAL INTERVENTION 04/12/2020 IR Arterial Intervention 04/12/2020 Carlitos Steve, DO [facility] INTERVENTIONL RAD ??? IR PARACENTESIS 04/21/2020 IR Paracentesis 04/21/2020 Hector Roy MD [facility] INTERVENTIONL RAD ??? IR PARACENTESIS 04/28/2020 IR Paracentesis 04/28/2020 Kye Nazario MD [facility] INTERVENTIONL RAD ??? IR PARACENTESIS 05/06/2020 IR Paracentesis 05/06/2020 Carlitos Steve, DO [facility] INTERVENTIONL RAD ??? PRO UPPER GI ENDOSCOPY, BIOPSY N/A 06/22/2020 EGD WITH BIOPSY (WRVU 2.49) performed by Siddhartha Arreola MD at [facility] ENDOSCOPY Social History Tobacco Use ??? Smoking status: Never Smoker ??? Smokeless tobacco: Never Used ??? Tobacco comment: never Substance Use Topics ??? Alcohol use: Not Currently Alcohol/week: 10.0 standard drinks Types: 10 Shots of liquor per week Comment: last drink apr 11 2020 Social History Substance and Sexual Activity Drug Use Never No Known Allergies Medications: MAR and/or home medications have been reviewed. Physical Exam: Preprocedure Vitals Current as of 01/23/21 1016 BP: 116/77 Pulse: 77 Resp: 20 SpO2: 100 Temp: 36.3 ??C (97.3 ??F) Height: Weight: 66.7 kg (147 lb) (01/23/21) BMI: IBW: Last edited 01/23/21 1012 by CG Airway Assessment: Mallampati: II TM distance: >3 FB Neck ROM: full Cardiovascular Assessment: Rhythm: regular Rate: normal Pulmonary Assessment: unlabored breathing Dental Assessment: Misc Assessment: IV access: Peripheral line Last Filed Perioperative Cognitive Screening None Anesthesia Plan: ASA 3 MAC, with a(n) intravenous induction Upper EUS Cirrhosis Region - Other Informed Consent: Anesthetic plan and risks discussed with patient. Plan discussed with FERRY ENGINEER. Anesthesia Screening documented in this encounter Plan of Treatment Not on filedocumented as of this encounter Visit Diagnoses Not on filedocumented in this encounter Administered Medications Inactive Administered Medications - up to 3 most recent administrations Medication Order MAR Action Action Date Dose Rate Site lactated ringers infusion Restarted 01/23/2021 10:55 AM EDT 100 mL/hr, Intravenous, CONTINUOUS, Starting on Tue01/23/21 at 1030, Until Tue01/23/21 at 1400, Endoscopy (Day of Procedure) New Bag 01/23/2021 10:30 AM EDT 100 mL/hr 100 mL/hr lidocaine (pf) (Xylocaine) (20 mg/mL) 2% Given 01/23/2021 10:40 AM EDT 100 mg injection syringe Intravenous, PRN, Starting on Tue01/23/21 at 1040, Until Tue01/23/21 at 1105, Anesthesia Intra-op, Routine propofoL (Diprivan) 10 mg/mL bolus injection Given 10:49 AM EDT 40 mg (Anesthesia) Intravenous, PRN, Starting on Tue01/23/21 at 1040, Until Tue01/23/21 at 1105, Anesthesia Intra-op Given 01/23/2021 10:43 AM EDT 50 mg Given 01/23/2021 10:40 AM EDT 50 mg propofoL (Diprivan) infusion New Bag 01/23/2021 10:41 200 mcg/kg/min 80.04 mL/hr Intravenous, CONTINUOUS PRN, AM EDT Starting on Tue01/23/21 at 1041, Until Tue01/23/21 at 1105, Anesthesia Intra-op, Routine documented in this encounter Care Teams Utility Teller Relationship Specialty Start Date End Date Julieta Odell APRN PCP - General Family Medicine 04/11/20 [address] [place] [address] documented as of this encounter
--- OUTSIDE RECORDS SUMMARY | 2022-04-22 08:32 | XMS_ITS | Encounter Summary ---
:1980 Author Organization [facility] Address [address] [place] [address] Care Team Providers Name Role Phone Marah Khalil NEHEMIAH Primary Care Provider Encounter Details Date Type Department Care Team Description 06/24/2010 Results Only [facility] Leidy Fitzgerald MD Laboratory Services - [address] [address] [facility] [place] [address] [phone] Social History Tobacco Use Types Packs/Day Years Used Date Never Assessed Sex Assigned at Date Recorded Not on file documented as of this encounter Plan of Treatment Not on filedocumented as of this encounter Procedures Procedure Name Priority Date/Time Associated Diagnosis Comme nts CYTOPATHOLOGY Routine 06/24/2010 0:00 EST Results for this procedure are i n the results section . documented in this encounter Results CYTOPATHOLOGY (06/24/2010 0:00 EST) Pathology Report: CYTOPATHOLOGY REPORT ? [facility] ? [facility] Reports generated via electr onic interface contain original data; ? however they are lacking the format of the original report. ? Caution should be taken when reading/interpreting unformatted reports. ? Name: ? MERVIN WILEY L ? Accession #: ? [id number] ? : ? 1980 (Age: 29) ??F ?Collect Date: ? 06/24/2010 ? Location: ? [facility] ? R eceive Date: ? 06/29/2010 ? Provider: LEIDY DAVID MD ? Copy to: ? Final Report ? SPECIMEN ADEQUACY ? Satisfactory for Eval uation ? - transformation zone compon ent present ? - scant squamous epithelial component secondary to excessive inflammation ? GENERAL CATEGORIZATION ? Negative for Intraepi thelial Lesion or Malignancy ? Last Menstural Period: 11/ /10 ? Specimen/Source: ??Pap Test, Cervix/Endocervix, ThinPrep Imaging System with ? manual evaluation ? Document reviewed and electr onically signed by: ? Lynan Evangelist, CT(ASCP) ? Report ??Date: 11/29/ 2010 16:30 ? HPV with Pap Test ? Date Ordered: ? 08/29/2009 ? Status: ?? Signed Out ?Date Complete: ? 07/01/2010 ? By: ??System Interface ? Date Reported: ? 07/01/2010 ? Interpretation ? RESULT: Negative for HPV typ es 16, 18, 31, 33, 35, 39, 45, 51, 52, ? 56, 58, 59, and 68. ? Comments ? Document reviewed and electr onically signed by: ? System Interface ? Report date: 12/01/20 10 ? By the signature above, the attending physician certifies that he/she has ? personally conducted a gross and/or microscopic examination of the described ? specimens and rendered or co nfirmed the above diagnosis. ? End of Report ? Specimen Performing Organization Address City/State/ZIP Code Phon e Number [facility] [address] [place] [address] [facility] [address] [place] [address] documented in this encounter Visit Diagnoses Not on filedocumented in this encounter Care Teams Supervisor Metal Placing Relationship Specialty Start Date End Date Marah Khalil FNP PCP - General 12/18/08 09/11/15 [address] [place] [address] documented as of this encounter
--- OUTSIDE RECORDS SUMMARY | 2022-04-22 08:32 | XMS_ITS | Encounter Summary ---
:1980 Author Organization [facility] Address [address] [place] [address] Care Team Providers Name Role Phone Marah Khalil NEHEMIAH Primary Care Provider Reason for Visit Reason Comments Pituitary Abnormality Encounter Details Date Type Department Care Team Description 06/15/2010 Office Visit [facility] Felix Saunders [facility] Endocrinology - Namita Hernandez DO ([facility]) (Primary [address] [place], [place] [address] [address] [place] [address] Social History Tobacco Use Types Packs/Day Years Used Date Never Assessed Sex Assigned at Date Recorded Not on file documented as of this encounter Last Filed Vital Signs Vital Sign Reading Time Taken Comments Blood Pressure 112/68 06/15/2010 1321 EST Pulse 68 06/15/2010 1321 EST Temperature - - Respiratory Rate - - Oxygen Saturation - - Inhaled Oxygen Concentration - - Weight 65.3 kg (144 lb) 06/15/2010 1321 EST Height 171.5 cm (5' 7.5) 06/15/2010 1321 EST Body Mass Index 22.22 06/15/2010 1321 EST documented in this encounter Patient Instructions Patient InstructionsFelix Saunders DO - 06/15/2010 13:33 EST 1. Call if you become 2. Call with questions or concerns 3. Dr. 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 She was first diagnosed in 06/2005 via MRI after presenting with symptoms of galactorrhea and oligomenorrhea. She had been on Dostinex but was changed to bromocriptine as she was attempting to become . Hermost recent visit to the endocrine clinic was on 06/16/2009. Please see that note for full details. Her has been deployed in [place] [facility] for the last 9-1/2 months but did return home for 2 weeks and is hoping to be home in July for good. She is due for a repeat prolactin today. Upon interview she notes no symptoms consistent with adverse events from the medication, and she reports compliance with her daily medication. She denies nausea, vomiting or orthostatic changes. Her vision has remained stable. She reports no increase in frequency or severity of headaches. She denies galactorrhea.Her menstrual cycle is regular both in frequency and duration. PAST MEDICAL HISTORY: 1. History of anxiety. 2. 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 MEDICATIONS: 1. Bromocriptine 5 mg p.o. daily. 2. Clonazepam 0.5 mg p.o. p.r.n. 3. Folic acid p.r.n. ALLERGIES: No known drug allergies. OBJECTIVE: Blood pressure is 112/68, pulse is 68. Weight is 144 pounds, she is 171.5 cm giving her aBMI of 22.2. In general, the patient is a pleasant young white female in no acute distress. HEENT: Eyes: There is no lid lag or periorbital edema noted. Gross testing of her visual schuster was normal. Re spiratory: Lungs are clear to auscultation bilaterally. Cardiovascular: Heart is regular without murmurs, rubs or gallops. GI: Abdomen is soft, nontender, nondistended, good bowel sounds in all 4 quadrants. Extremities: No clubbing, cyanosis or edema. Strength is 5/5 and equal bilaterally. Neuro: DTRsare +2/4 and equal bilaterally in all 4 extremities without resting tremor. Psych: The patient is A and O x3. Speech and thoughts are appropriate, appears well groomed, makes good eye contact, denies depression. ASSESSMENT: Mrs Cowan has a 4 mm prolactinoma with a stable prolactin level as of 06/16/2009. Sheis currently on bromocriptine 5 mg daily, reports no side effects from this medication and reports compliance. She has no chronic headaches or galactorrhea, and her menstrual cycles remain regular. Encouraged the patient to continue her bromocriptine at its current dose. We will check a prolactin level to make sure it remains below. We briefly discussed when her returns home in July if she were to get she should discontinue her bromocriptine as soon as the is confirmedand call my office for further instructions. She voiced understanding. PLAN: 1. Continue bromocriptine 5 mg p.o. daily. 2. We will check prolactin today and we will inform the patient of those results. 3. Follow up in 12 months. 4. Call the office if and when she becomes after the return home of her from [facility]. Electronically Signed by Felix Saunders DO 06/22/2010 17:24 Felix Saunders DO - Felix Saunders DO - [facility] Job ID: SM Doc ID: [id number] Ext Doc ID: [id number] cc: NEHEMIAH Wilson Felix Fried DO - 06/15/2010 1339 EST This office note has been dictated. documented in this encounter Plan of Treatment Not on filedocumented as of this encounter Procedures Procedure Name Priority Date/Time Associated Diagnosis Comme nts PROLACTIN Routine 06/15/2010 13:42 EST Prolactinoma (CMS-HC C) Results for this procedure are i n the results section. documented in this encounter Results PROLACTIN (06/15/2010 13:42 EST) Pathologist Sig nature Prolactin 9.6Comment: ng/ml [facility] Non-: 2.8-29.2 : 9.7-208.5 Post Menopausal: 1.8-20.3 Specimen Blood specimen (specimen) Performing Organization Address City/State/ZIP Code Phon e Number [facility] [address] [place] [address] SERVICES [facility] [address] [place] [address] documented in this encounter Visit Diagnoses Diagnosis Prolactinoma ([facility] (HCC) - Primary Benign neoplasm of pituitary gland and c raniopharyngeal duct (pouch) documented in this encounter Discontinued Medications Medication Sig Discontinue Reason Start Date End Date clonazepam (KLONOPIN) Take 0.5 mg by Patient Stopped Taking 06/15/2010 0.5 mg tablet mouth daily. documented as of this encounter Care Teams Alarm Installation Technician Relationship Specialty Start Date End Date Marah Khalil FNP PCP - General 12/18/08 09/11/15 [address] [place] [address] documented as of this encounter
--- OUTSIDE RECORDS SUMMARY | 2022-04-22 08:32 | XMS_ITS | Encounter Summary ---
:1980 Author Organization [facility] Address [address] [place] [address] Care Team Providers Name Role Phone Unavailable Primary Care Provider Unavailable Encounter Details Date Type Department Care Team Description 07/21/2005 Hospital Encounter [facility] - Kym Damico MD [address] [place], [place] [id number] [facility], [facility] [address] [place] [phone] [address] [place], [place] [id number] Social History Tobacco Use Types Packs/Day Years Used Date Never Assessed Sex Assigned at Date Recorded Not on file documented as of this encounter Discharge Disposition Disposition Code Departure Means Destination Auto Discharge documented in this encounter Plan of Treatment Not on filedocumented as of this encounter Procedures Procedure Name Priority Date/Time Associated Diagnosis Comme nts MR HEAD W/WO 07/21/2005 18:36 Results for this CONTRAST EST procedure are i n the results section. documented in this encounter Results MR HEAD W/WO CONTRAST (07/21/2005 18:36 EST) Anatomical Region Laterality Modality Other Specimen Narrative [facility] - 02/28/2009 4: 16 EDT PROLACTINOMA, LEFT BREAST DISCHARGE, PROLACTIN LEVEL 91.0 MRI OF THE PITUITARY GLAND AND MR ANGIOG [place] OF THE [place]LEM OF [place], 07/21/05, 1749 IMPRESSION: 1. 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 2. ?Normal MR angiography of the [place]. CLINICAL HISTORY: Prolactinoma with prolactin level of 91. 0. ??Rule out microadenoma. TECHNIQUE: Thin section sagittal and coronal FSE T 1, coronal fat-saturated FSE T2, and post IV contrast fat-saturated c oronal and sagittal FSE T1 images of the brain were performed. Agueda marilou IV contrast-enhanced coronal FSE T1 weighted scans were obtai aminah. TECHNIQUE: Non contrast 3D TOF images of the circl e of [place] were performed with targeted MIP reformations. FINDINGS: The pituitary gland is normal in size. ? ?There is no suprasellar extension. ??The sella turcica is not en larged. ??A mass is identified in the pituitary gland posteriorly off t he midline on the left side. This measures about 4 x 4 millimeters in its largest diameter. ??The findings are consistent with a microaden evelio. MR angiography of the [place] s hows no vascular malformations. ??Aneurysms are not demon strated. ??Vascular occlusion is not present. D: ??07/22/05 T: ??07/22/05 /[facility] Procedure Note Kym Pimentel MD - 02/28/2009 PROLACTINOMA, LEFT BREAST DISCHARGE, SD OLACTIN LEVEL 91.0 MRI OF THE PITUITARY GLAND AND MR ANGIOG [place] OF THE [place]LEM OF [place], 07/21/05, 7069 IMPRESSION: 1. 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 2. Normal MR angiography of the [place]. CLINICAL HISTORY: Prolactinoma with prolactin level of 91. 0. Rule out microadenoma. TECHNIQUE: Thin section sagittal and coronal FSE T 1, coronal fat-saturated FSE T2, and post IV contrast fat-saturated c oronal and sagittal FSE T1 images of the brain were performed. Agueda marilou IV contrast-enhanced coronal FSE T1 weighted scans were obtai aminah. TECHNIQUE: Non contrast 3D TOF images of the circl e of [place] were performed with targeted MIP reformations. FINDINGS: The pituitary gland is normal in size. T here is no suprasellar extension. The sella turcica is not enla rged. A mass is identified in the pituitary gland posteriorly off t he midline on the left side. This measures about 4 x 4 millimeters in its largest diameter. The findings are consistent with a microaden evelio. MR angiography of the [place] s hows no vascular malformations. Aneurysms are not demonst rated. Vascular occlusion is not present. /[facility] Performing Organization Address City/State/ZIP Code Phon e Number [facility] [address] [facility] [place] [address] [facility] [address] [place], [place] [address] documented in this encounter Visit Diagnoses Not on filedocumented in this encounter
--- OUTSIDE RECORDS SUMMARY | 2022-04-22 08:32 | XMS_ITS | Encounter Summary ---
:1980 Author Organization [facility] Address [address] [place] [address] Care Team Providers Name Role Phone Marah Khalil NEHEMIAH Primary Care Provider Encounter Details Date Type Department Care Team Description 2005 Before [facility] - Nuris Clifton MD Converted Visit Maple conversion FA HOUSESTAFF MAIL (Maple) 111 [facility] [address] [place] [address] [place] [address] Social History Tobacco Use Types Packs/Day Years Used Date Never Assessed Sex Assigned at Date Recorded Not on file documented as of this encounter Progress Notes Richard, Conv Assistant Manager Bilingual - 07/25/2009 0456 EST DIVISION OF ENDOCRINOLOGY PROGRESS/FOLLOWUP NOTE - 2005 SUBJECTIVE: Ms. Delgado was seen in followup at [facility] for evaluation of her prolactinoma. Ms. 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 She was started on dostinex 0.25 mg once a week and she has stayed on the dose for the last 4- 5 months. She tells me that she has some nausea associated with her medication. Hasnot had any nipple discharge for the last few months. Her menstrual cycles are more regular. She is planning a in the next year. She is concerned whether she is should be taking the medications through the and whether this would be a lifelong therapy. Medications listed in the chart include Dostinex 0.25 mg once a week. PHYSICAL EXAMINATION: Blood pressure 116/64. Pulse 96. Weight 160. In general, she is a pleasant female in no significant distress. HEENT : EOM intact. Visual schuster intact to confrontation. Heart regular rate and rhythm. Lungs clear bilaterally. ASSESSMENT: Ms. Delgado is a 24- year- old female seen for followup of her hyperprolactinemia and prolactinoma. She has had significant clinical improvement in terms of her breast discharge and abnormal menstrual cycles, which have been regular since she has been on the Dostinex. PLAN: I recommended we get prolactin level today. She had a microadenoma and, hence, would not need to repeat an MRI at this point today. However, as she is planning a , and and could stimulate the pituitary gland and cause diffuse enlargement of the pituitary gland, would like to get an MRI as a baseline before her next visit in 6 months. I plan to see her backin 6 months with a repeat prolactin level and MRI. saw and examined the patient with .. I agree with the HPI, exam findings and the plan of care as outlined above. I have documented any additions/changes in the body of the note. Signed by Nigel Zaldivar MD 01/20/2006 15:36 Reviewed by JUAN C Newman 01/13/2006 10:37 Anderson Gonzalez MBBSAfshin Salsali, MD Dictated by: JUAN C Newman Nigel Zaldivar MD - JUAN C Newman P - O3 Job ID: [id number] Document ID: [id number] cc: NEHEMIAH Wilson documented in this encounter Plan of Treatment Not on filedocumented as of this encounter Visit Diagnoses Not on filedocumented in this encounter Care Teams Social Sciences Department Chair Relationship Specialty Start Date End Date Marah Khalil FNP PCP - General 12/18/08 09/11/15 [address] [place] [phone] documented as of this encounter
--- OUTSIDE RECORDS SUMMARY | 2022-04-22 08:32 | XMS_ITS | Encounter Summary ---
:1980 Author Organization [facility] Address [address] [place] [address] Care Team Providers Name Role Phone Marah Khalil NEHEMIAH Primary Care Provider Encounter Details Date Type Department Care Team Description 06/25/2007 Before [facility] - Felix Saunders Converted Visit Maple conversion DO David (Maple) [address] [address] [place] [address] [place] [address] (Wo rk) Social History Tobacco Use Types Packs/Day Years Used Date Never Assessed Sex Assigned at Date Recorded Not on file documented as of this encounter Progress Notes Felix Saunders DO - 06/08/2009 1946 EST DIVISION OF ENDOCRINOLOGY PROGRESS/FOLLOWUP NOTE - 06/25/2007 SUBJECTIVE: Mrs. Cowan is a 26-year-old white female who returns to the clinic today for further evaluation and management of her 4 mm prolactinoma. She was first diagnosed in 06/2005 via MRI. She presented with symptoms of galactorrhea, oligomenorrhea. She has been on a stable dose of Dostinex 0.25 mg once a week for approximately two years. She returns to the clinic today with several concerns. She has been having intermittent headaches which she describes as mild over the last several months. In addition, she notes over the last four weeks she has noticed some mild galactorrhea, certainly less in volume than her previous diagnosis. It is described as white and clear; there has been no nipple inversion or skin changes around her nipples. Her menstrual cycle remains regular both in duration and frequency. She has had multiple negativepregnancy tests. She also notes some occasional floaters in her eye but no distinct visual field loss. She has been attempting to get for approximately three months and has been unsuccessful. She is concerned today that her symptoms are related toher microadenoma. Recent blood work obtained on 06/20/2007 showed prolactin level to be at the high end of normal at 24.9. Her thyroid function tests obtained at that point showed TSH of 2.19 and free T4 of0.9. Her other pituitary hormones, as expected,are normal. PAST MEDICAL HISTORY: History of anxiety, currently not on any medications. MEDICATIONS: Cabergoline (Dostinex) 0.5 mg 1/2 tablet p.o. weekly. OBJECTIVE: On physical exam blood pressure is 128/80, pulse 116, weight 170 pounds and she is 5 feet8 inches tall, giving her a BMI of 26. In general, the patient is a pleasant 26-year-old white female in no acute distress. She appears her stated age. HEENT: Eyes: Pupils are equal, round and reactiveto light, extraocular muscles intact, sclerae are anicteric. There is no evidence of corneal abrasion bilaterally. Sclerae and conjunctivae are not injected. A nonviolating funduscopic exam does not reveal any evidence of papilledema or retinal abnormalities. Neck supple without adenopathy. Thyroid isnormal in size without tenderness or nodules to palpation. Respiratory: Lungs are clear to auscultation bilaterally. Cardiovascular: Heart is regular without murmurs, rubs or gallops. Chest: Breast exam shows bilaterally inverted nipples. No skin changes or masses palpated in either breast. I am unable to express any discharge. GI: Abdomen is soft, nontender and nondistended with good bowel sounds inall four quadrants. Extremities: No clubbing, cyanosis or edema. Neuro: DTRs are +2/4 and equal bilaterally in all four extremities. Strength is 5/5 and equal bilaterally and equal in all four extremities. Psych: Patient is alert and oriented times three; speech and thoughts are appropriate. She has good insight into her current clinical situation and asks and answers questions appropriately. She self-describes mood as under some stress. ASSESSMENT: A 4 mm prolactinoma. Given the small size of patient's tumor, doubt tumor is causing anyvisual symptoms or headaches. In a non- individual the prolactin levels correlate quite wellwith tumor size and I doubt she has had a significant increase in her tumor with her prolactin levelof 24.9. However, despite her prolactin being in the normal range, she may need a lower prolactin level to prevent galactorrhea. Unclear if her difficulty getting is the result of working three jobs and recently moving or related to her prolactinoma. By increasing her medication slightly wecould drop her prolactin level into the middle or low-normal range, thus removing pituitary issues as a complicating factor. Her menstrual cycle has remained regular during the onset of her galactorrhea. We had a lengthy discussion regarding the treatment of her microprolactinoma during and after her , which is outlined below. PLAN: 1. Both cabergoline and bromocriptine have not been shown to increase rates of spontaneous or contribute to congenital abnormalities if discontinued within the first few weeks of . However, there is a larger volume of data with use of bromocriptine. Due to this fact, I recommend thatpatient switch from Dostinex to bromocriptine as she is attempting to get . The one drawbackis bromocriptine happens to be a daily medication. I also explained to patient that in trials with elderly individuals this medication at much higher doses there was found to be some heart arrhythmias.Will switch the patient to bromocriptine 2.5 mg p.o. at bedtime, prescription given, dispense #30 with 6 refills. 2. Instructed patient to discontinue her bromocriptine as soon as she finds out she is . 3. Would review symptoms of expanding prolactinoma with patient once per trimester. The symptoms would include headache or visual changes. There is less than 3% chance of a microadenoma growing to the size where it causes symptoms during . 4. Instructed patient that she may breast feed after her if she chooses and that there have been no studies that show in increase in size of prolactinoma with breast feeding. 5. Would not check prolactin levels during as estrogen causes prolactin levels to rise despite no change in tumor size. 6. Patient to follow up with me in one year; I have encouraged her to call with questions as she attempts to become with regard to her microadenoma. Edited and Signed by Mya Velazco MD,PhD 07/17/2007 21:50 Reviewed by Felix Saunders DO 07/17/2007 13:57 Felix Saunders, Mya Velazco MD,PhD - Felix Saunders DO - DENICE Job ID: [id number] Doc ID: [id number] cc: NEHEMIAH Wilson - denice Job ID: [id number] Doc ID: [id number] cc: NEHEMIAH Wilson documented in this encounter Plan of Treatment Not on filedocumented as of this encounter Visit Diagnoses Not on filedocumented in this encounter Care Teams Knotter Hand Relationship Specialty Start Date End Date Marah Khalil FNP PCP - General 12/18/08 09/11/15 4 DIANE Barbosa [phone] documented as of this encounter
--- OUTSIDE RECORDS SUMMARY | 2022-04-22 08:32 | XMS_ITS | Encounter Summary ---
:1980 Author Organization [facility] Address [address] [place] [address] Care Team Providers Name Role Phone Marah Khalil Primary Care Provider Encounter Details Date Type Department Care Team Description 07/23/2009 Abstract [facility] Women's Marah Arajuo FNP Services - [facility] [address] [facility] [place] [address] [place] [address] [phone] Social History Tobacco Use Types Packs/Day Years Used Date Never Assessed Sex Assigned at Date Recorded Not on file documented as of this encounter Plan of Treatment Not on filedocumented as of this encounter Visit Diagnoses Not on filedocumented in this encounter Care Teams Surgical Training Specialist Relationship Specialty Start Date End Date Marah Khalil FNP PCP - General 12/18/08 09/11/15 4 [address] [facility] [place] [address] documented as of this encounter
--- OUTSIDE RECORDS SUMMARY | 2022-04-22 08:32 | XMS_ITS | Encounter Summary ---
:1980 Author Organization [facility] Address [address] [place] [address] Care Team Providers Name Role Phone Marah Khalil NEHEMIAH Primary Care Provider Encounter Details Date Type Department Care Team Description 02/19/2009 Hospital Encounter [facility] Saúl Pena, Perioperative Services- [id number] [place] [address] [phone] Social History Tobacco Use Types Packs/Day Years Used Date Never Assessed Sex Assigned at Date Recorded Not on file documented as of this encounter Last Filed Vital Signs Vital Sign Reading Time Taken Comments Blood Pressure 113/82 02/19/2009 1315 EDT Pulse 82 02/19/2009 1130 EDT Temperature 36.5 ??C (97.7 ??F) 02/19/2009 1315 EDT Respiratory Rate 15 02/19/2009 1315 EDT Oxygen Saturation 99% 02/19/2009 1315 EDT Inhaled Oxygen Concentration - - Weight 77.1 kg (170 lb) 02/05/2009 0904 EDT Height 172.7 cm (5' 8) 02/05/2009 0904 EDT Body Mass Index 25.85 02/05/2009 0904 EDT documented in this encounter Discharge Instructions Kelly [place] RN - 02/19/2009 F/U Appointment: [address] Pena Prescriptions: Oxycodone 5 mg take 1-2 tabs PO q 4 hrs PRN, disp # 0. OTC Motrin and Tylenol Activity/Weight Bearing: As tolerated Shower/Bath: As tolerated Dressings: none Return to Work: As tolerated Nothing per vagina for: 2 weeks Next Motrin (Ibuprofen) can be taken at 5PM today, and every six hours as needed for discomfort. Tylenol, take every four hours as needed for pain. DO NOT TAKE MORE THAN 1000MG. OF TYLENOL IN A FOUR HOUR PERIOD. TAKE DIRECTED ON PRODUCT BOTTLE. documented in this encounter Medications at Time of Discharge Medication Sig Dispensed Refills Start Date End Date folic acid (FOLVITE) 1 mg Take 1 mg by mouth 0 tablet at bedtime. bromocriptine (PARLODEL) Take 5 mg by mouth 0 06/24/2010 2.5 mg tablet at bedtime. documented as of this encounter Discharge Disposition Disposition Code Departure Means Destination Home or Self Care documented in this encounter Progress Notes Kelly Rangel, ARANZA - 02/19/2009 1242 EDT pATIENT SITTING UP IN BED, ABLE TO TAKE PAIN PILL WITH SIP JUICE, SEEMS TIRED, NO LONGER COMPLAININGOF PAIN. hAS MALIAN MUFF AT BEDSIDE, NIBBLING. DRINKING BEVERAGE, AT BEDSIDE. VAG DRAINAGE MINIMAL. documented in this encounter H&P Notes InpatientPhysician MD - 02/25/2009 1009 EDT documented in this encounter Procedure Notes Physician Smith MD - 02/25/2009 1009 EDTAssociated Order(s): ORDERS - SCANNED; ORDERS - SCANNED Physician Smith MD - 02/25/2009 1009 EDTAssociated Order(s): ECG REPORT - SCANNED; ECG REPORT - SCANNED Isha Carl - 02/19/2009 1049 EDTProcedure(s): HYSTEROSCOPY OPERATIVE; POLYPECTOMY; DILATION AND CURETTAGE OF UTERUS; HYSTEROSCOPY OPERATIVE; POLYPECTOMY; DILATION AND CURETTAGE OF UTERUSPre-Procedure Diagnose(s): Polyp of corpus uteri; Polyp of corpus uteri Brief Op-note Surgeon: Becky Senior Java Web Application Developer: Meseret Canales Meisinger Pre-op Dx: Polyps on sonohysterogram Post-op Dx: same Procedure: Operative hysteroscopy with removal of polyps by loop excision, D&C Anesthesia: LMA Findings: Large erythematous, friable cervix. Several small uterine polyps on anterior wall, posterior wall, and near right cornua. Normal appearing ostia bilat EBL: min IVF: 1100 cc LR Fluid deficit: 125 cc UOP: 250 cc I&O prior to procedure Foreign materials retained: none Specimens sent: EMC, polyps Complications: none Condition: stable Disposition: PACU documented in this encounter OR Notes OR PreOp - Physician Smith MD - 02/25/2009 1009 EDT R PreOp - InpatientPhysician MD - 02/25/2009 1009 EDT Anesthesia Procedure Notes - Physician Smith MD - 02/19/2009 1105 EDT R PreOp - Physician Smith MD - 02/19/2009 1058 EDT Anesthesia Preprocedure Evaluation - Physician Smith MD - 02/19/2009 0933 EDT R Surgeon - Yolanda Canales MD - 02/19/2009 0000 EDT PROCEDURE REPORT PT TYPE: OPPROC SERVICE DATE: 02/19/2009 SURGEON: Saúl Pena MD BACK HANGER: Yolanda Canales MD, Isha Carl MD PREOPERATIVE DIAGNOSIS 1. Infertility. 2. Endometrial polyps identified on hysterosalpingogram and sonohysterogram. POSTOPERATIVE DIAGNOSIS 1. Infertility. 2. Endometrial polyps identified on hysterosalpingogram and sonohysterogram. PROCEDURE Hysteroscopic polypectomy, dilation and curettage. ANESTHESIA General as per anesthesia record. INDICATIONS Ms. Cowan is a 28-year-old para zero female with a history of infertility who had an HSG performed, which identified intrauterine polyps. A subsequent sonohysterogram identified a normal uterus in dimension with an endometrium demonstrating at least three polyps. The patient desired to proceed withsurgical removal of the polyps and informed consent was obtained. FINDINGS Exam under anesthesia revealed an anteverted 6-8 week sized uterus. Operative findings included a bulbous cervix, which bled easily with manipulation. Hysteroscopic findings included a polypoid-appearing endometrium with multiple polyps from the fundus to the endocervical os circumferentially. NARRATIVE The risks, benefits, alternatives and explanation of the procedure were reviewed and informed consent obtained. The patient was taken to the operating room where anesthesia was administered and found to be adequate. She was then prepped and draped in the usual sterile fashion in the dorsal lithotomy position. A weighted speculum was placed in the patients vagina and the anterior lip of the cervix grasped with a single-toothed tenaculum. The uterus was sounded to 9.5 cm and dilated to a #7 Hegar. Theoperative hysteroscope was then introduced through the cervix into the uterine cavity with the findings noted above. Based on the extensive nature of the polyps, the decision was made to resect these with the loop electrode. The cervix was then dilated to a #10 Hegar and the resectoscope was introduced into the uterine cavity. Multiple passes were taken to resect the polyp circumferentially. The polyps were then removed and sent to pathology. The hysteroscope was then removed and gentle curettage was performed to remove the remaining fragments in the cavity. These were also sent to pathology. The op erative hysteroscope was then reintroduced into the cavity and a more regular smooth uterine contourwas noted with no further polyps identified. Both cornua were visualized. All instruments were then removed from the patients vagina. The patient was awakened and taken to the recovery room in stable condition. All sponge, lap and needle counts were correct x2. There were no complications. Unless otherwise noted, there were no complications, no blood loss, cultures obtained, specimens removed, or drains retained. ESTIMATED BLOOD LOSS Minimal. FLUIDS 1100 mL URINE OUTPUT 250 mL prior to start of the case. GLYCINE DEFICIT 125 mL SPECIMENS Intrauterine polyps and curettings, sent to pathology. COMPLICATIONS None. Yolanda Canales MD Saúl Pena MD - Yolanda Canales MD A - jlb Job ID: [id number] Document ID: [id number] cc: MD Felix Srinivasan, DO documented in this encounter Miscellaneous Notes Scanned Note-Null - InpatientPhysician MD - 02/25/2009 1009 EDT canned Note-Null - InpatientPhysician MD - 02/25/2009 1009 EDT documented in this encounter Plan of Treatment Not on filedocumented as of this encounter Procedures Procedure Name Priority Date/Time Associated Diagnosis Comme nts ECG REPORT - 02/25/2009 10:09 Results for this SCANNED EDT procedure are i n the results section. ORDERS - SCANNED 02/25/2009 10:09 Results for this EDT procedure are i n the results section. TEST, STAT 02/19/2009 7:50 EDT Resul ts for this URINE procedure are i n the results section. documented in this encounter Results ORDERS - SCANNED (02/25/2009 10:09 EDT) Specimen Narrative 02/25/2009 13:26 EDT This result has an attachment that is no t available. Ordered by an unspecified provider. Transcriptions Physician Smith MD - 02/25/2009 10 :09 EDT ECG REPORT - SCANNED (02/25/2009 10:09 EDT) Specimen Narrative 02/25/2009 13:26 EDT This result has an attachment that is no t available. Ordered by an unspecified provider. Transcriptions Physician Smith MD - 02/25/2009 10 :09 EDT TEST, URINE (02/19/2009 7:50 EDT) Pathologist Sig nature Result Neg [facility] Specimen Urine (substance) Performing Organization Address City/State/ZIP Code Phon e Number [facility] [address] [place] [address] [facility] [address] [place] [address] documented in this encounter Visit Diagnoses Not on filedocumented in this encounter Administered Medications Inactive Administered Medications - up to 3 most recent administrations Medication Order MAR Action Action Date Dose Rate Site fentanyl citrate (PF) 50 mcg/mL Given 02/19/2009 11:35 EDT 50 mc g injection 25-100 mcg 25-100 mcg, intravenous, PRN, Starting on Tue02/19/09 at 1004, Until Tue02/19/09 at 1537, Pain, Routine, Recovery (only) Given 02/19/2009 11:15 EDT 50 mcg fentanyl citrate (PF) 50 mcg/mL injectio n 1 dose, Starting on Tue02/19/09 at 1114, Until 01/30 at 1115 lactated ringers (LR) infusion New Bag 02/19/2009 8:45 EDT 25 mL/hr at 25 mL/hr, intravenous, CONTINUOUS, Starting on Tue02/19/09 at 0845, Until Tue02/19/09 at 1537, Routine, Pre Op Day of Surgery oxycodone-acetaminophen (PERCOCET) 5-325 mg Given 02/19/2009 12:20 EDT 1 Tablet per tablet 1-2 Tab 1-2 Tablet, oral, PRN, 1 dose, Starting on Tue02/19/09 at 1005, Until Tue02/19/09 at 1220, Pain, Routine, Recovery (only) documented in this encounter Historical Medications This list may reflect changes made after this encounter. Medication Sig Dispensed Refills Start Date End Date folic acid (FOLVITE) 1 mg Take 1 mg by mouth 0 tablet at bedtime. bromocriptine (PARLODEL) Take 5 mg by mouth 0 06/24/2010 2.5 mg tablet at bedtime. added in this encounter Active and Recently Administered Medications Times are shown in EDT. Continuous Medication Order 02/17/2009 02/18/2009 02/19/2009 lactated ringers (LR) infusion (CANCELED) 0845 (New Bag - Provider: Jordyn Tsang RN) at 25 mL/hr, Intravenous, CONTINUOUS, St arting 02/19/09 at 0845, Until Discontinued PRN Medication Order 02/17/2009 02/18/2009 02/19/2009 fentanyl citrate (PF) 50 mcg/mL injection 25-100 mcg (CANCELED) 1115 (Given - Provider: Kelly Rangel, ARANZA)1135 (Given - Provider: Kelly Rangel, RN) 25-100 mcg, intravenous, PRN, Starting W ed 02/19/09 at 1004, Until 02/19/09 at 1537, Pain, Routine oxycodone-acetaminophen (PERCOCET) 5-325 mg per tablet 1-2 Tab ( COMPLETED) 1220 (Given - Provider: Kelly Rangel RN) 1-2 Tab, oral, PRN, 1 dose, Starting 02/19/09 at 1005, Until 02/19/09 at 1220, Pain, Routine documented in this encounter Orders Medications Ordered That Might Not Have Count Last Ord ered Date First Ordered Date Been Administered atropine 0.1 mg/mL 10 mL syringe 0.5 mg 1 02/20/20 HYDROmorphone (PF) (DILAUDID) 1 mg/mL 1 02/19/2009 injection 0.2 mg lactated ringers (LR) infusion 1 02/19/2009 naloxone (NARCAN) injection 0.2 mg 1 02/19/2009 ondansetron (PF) (ZOFRAN) 4 mg/2 mL 1 02/19/2009 injection 2 mg oxycodone (ROXICODONE) 5 mg immediate 1 02/19/2009 release tablet Nursing Count Last Ordered Date First Ordered Date APPLY WARMING BLANKET 1 02/19/2009 CARDIAC MONITORING 1 02/19/2009 MONITOR AIRWAY 1 02/19/2009 NOTIFY SERVICE 1 02/19/[address] SEQUENTIAL COMPRESSION DEVICE 1 02/19/2009 PULSE OXIMETRY 1 02/19/2009 VITAL SIGNS 1 02/19/2009 Admission Count Last Ordered Date First Ordered Date NOTIFY PPS PATIENT DISCHARGED FROM PACU 1 02/20/20 09 Discharge Count Last Ordered Date First Ordered Date DISCHARGE PATIENT 1 02/19/2009 documented in this encounter Care Teams Serology Teacher Relationship Specialty Start Date End Date Marah Khalil FNP PCP - General 12/18/08 09/11/15 4 DIANE Barbosa [phone] documented as of this encounter
--- OUTSIDE RECORDS SUMMARY | 2022-04-22 08:32 | XMS_ITS | Encounter Summary ---
:1980 Author Organization [place] [address] Care Team Providers Name Role Phone Julieta Odell VAIBHAV Primary Care Provider [phone] Reason for Visit Auth/Cert Specialty Diagnoses / Procedures Referred By Contact Refer red To Contact Diagnoses Polyp of colon polyp removal Procedures PRO ENDOSCOPIC US EXAM, ESOPH PRO ANESTH, COMBINED UPPER OR LOWER ENDOSCOPY UPPER EUS- ENDOSCOPIC ULTRASOUND Referral ID Status Reason Start Date Expiration Date Visits Requ ested Visits Authorized [id number] 1 1 Encounter Details Date Type Department Care Team Description 01/23/2021 Surgery Gastroenterology at [facility] [place] Nabor Joseph UPPER EUS- ENDOSCOPIC [facility] Jordy [place] [address] [facility] [phone] DR GASTROENTEROLOGY [place], [place] [address] Social History Tobacco Use Types Packs/Day Years Used Date Never Smoker Smokeless Tobacco: Never Used Comments: never Alcohol Use Standard Drinks/Week Comments Not Currently 10 (1 standard drink = 0.6 oz pure alcoh ol) last drink apr 11 2020 Alcohol Habits Answer Date Recorded How often do you have a drink containing 4 or more times a w [place] 06/21/2020 alcohol? How many drinks containing alcohol [...] (147 lb) 01/23/2021 10:12 AM EDT Height - - Body Mass Index 23.02 06/21/2020 3:52 PM EST documented in this encounter Discharge Instructions Discharge InstructionsKellen Olivia RN - 01/23/2021 11:04 AM EDT UPPER GI ENDOSCOPY WHAT TO EXPECT AFTER THE PROCEDURE After the test you may feel a little more gassy or bloated than usual, this is normal. ACTIVITY Because of the sedation that you received Your judgement and reaction time are affected ?? Go home and rest quietly for the remainder of the day. You may resume your normal activities tomorrow. ?? Change from one position to the next slowly. You may lose your balance unexpectedly Be careful on stairs, as you may be unsteady on your feet. FOR THE NEXT 24 HRS ?? DO NOT DRIVE OR OPERATE ANY MACHINERY ?? DO NOT DRINK ALCOHOLIC BEVERAGES ?? DO NOT SIGN LEGAL DOCUMENTS ?? If you are a smoker: DO NOT SMOKE WHILE YOU ARE ALONE Diet ?? Start by eating small portions of foods that ordinarily will not upset your stomach. Be gentle with what you choose to start with. ?? Drink plenty of fluids ( unless otherwise told not to) Medications You may have a mild sore throat. Ice chips, popsicles, over the counter throat lozenges or spray may help numb your throat. This procedure should not cause a fever. IV SITE-- slight redness or tenderness is normal, you can use warm compresses if you get concerned.If the tenderness +/or redness increases or foul drainage and a red streak occurs, please contact your PCP immediately. WHEN SHOULD YOU CALL FOR HELP? Call 911 anytime you think that you need emergency care. For example, call if: You passed out (lost consciousness). You cough up blood. You vomit blood or what looks like coffee grounds. You pass maroon or very bloody stools. Call your healthcare provider or seek immediate medical attention if: You have trouble swallowing. You have belly pain. Your stools are black or tarlike or have streaks of blood. You are sick to your stomach or cannot keep fluids down. Watch closely for changes in your health, and be sure to contact your doctor IF Your throat still hurts after a day or two You do not get better as expected. Tuesday-Tuesday Same Day Endo [phone] 7a-8p Otherwise contact [phone] and ask to speak to the auto washer telecommunications line mechanic Follow-up care is a fish part of your treatment and safety. Be sure to make and go to all appointments, and call your doctor if you are having problems. Instructions have been reviewed and patient expresses understanding documented in this encounter Medications at Time [...] Release (E.C.) documented as of this encounter H&P Notes Nabor Joseph MD - 01/23/2021 10:35 AM EDT PROBLEM LIST Patient Active Problem List Diagnosis Code ??? GI bleed K92.2 ??? Jaundice R17 ??? Alcoholic hepatitis with ascites K70.11 ??? Alcoholic hepatitis K70.10 ??? UGIB (upper gastrointestinal bleed) K92.2 HISTORY OF PRESENT ILLNESS Violet Cowan is a 40 y.o. y/o who presents for EUS/EGD for duodenal nodules MEDICATIONS No current facility-administered medications on file prior to encounter. Current Outpatient Medications on File Prior to Encounter Medication Sig Dispense Refill ??? bumetanide (Bumex) 1 mg Tablet TAKE 1 TABLET(1 MG) BY MOUTH DAILY ??? ferrous sulfate 220 mg (44 mg iron)/5 mL Solution TAKE 10 ML BY MOUTH EVERY OTHER DAY. TAKE WITHA SMALL AMOUNT OF ORANGE JUICE ??? gabapentin (Neurontin) 100 mg Capsule TAKE 1 CAPSULE BY MOUTH THREE TIMES DAILY ??? potassium chloride 20 mEq Tablet Sustained Release Take 20 mEq by mouth. ??? folic acid (Folvite) 1 mg Tablet Take 1 tablet by mouth daily. 90 tablet 3 ??? multivitamin with minerals (THERA-M) 9 mg iron-400 mcg Tablet Take 1 tablet by mouth daily. 30 tablet 0 ??? pantoprazole EC (Protonix) 40 mg Tablet, Delayed Release (E.C.) Take 1 tablet by mouth 2 times daily. 90 tablet 3 ??? thiamine (Vitamin B1) Take 1 tablet by mouth daily. 30 tablet 0 ??? acetaminophen (Tylenol) 500 mg Tablet Take 1 tablet by mouth every 6 hours as needed for Pain. 30 tablet 1 ??? dextromethorphan-guaiFENesin (Robitussin) 10-100 mg/5 mL Syrup Take 5 mLs by mouth every 4 hoursas needed for Cough. 118 mL 0 ??? ondansetron ODT (Zofran-ODT) 8 mg Tablet, Rapid Dissolve Take 1 tablet by mouth every 8 hours asneeded for Nausea. 20 tablet 0 ??? acamprosate DR (Campral) 333 mg Tablet, Delayed Release (E.C.) Take 2 tablets by mouth 3 times daily. 180 tablet 0 PHYSICAL EXAM: Blood pressure 116/77, pulse 77, temperature 36.3 ??C (97.3 ??F), temperature source Temporal, resp.rate 20, weight 66.7 kg (147 lb), last menstrual period 01/16/2021, SpO2 100 %. GEN: Alert, cooperative. Pleasant. In NAD MP I ASA II HEENT: No oropharyngeal lesions. Neck supple. No masses. Thyroid symmetric LUNGS: CTAB CARD: RRR without m/g/r RECENT LABS No results found for this or any previous visit (from the past 24 hour(s)). ASSESSMENT AND PLAN Violet Cowan is a 40 y.o. y/o who presents for endoscopic evaluation. Risks extensively discussed including bleeding, infection, reaction to anesthesia, perforation, pancreatitis (if applicable), bile duct injury (if applicable), missing a cancer (if applicable) and/or other unforseen complicat ion. Consent signed and patient well informed of the risks of the procedure. documented in this encounter Plan of Treatment Not on filedocumented as of this encounter Procedures Procedure Name Priority Date/Time Associated Comments Diagnosis EGD, UPPER GI 01/23/2021 10:34 AM polyp removal ENDOSCOPY EDT UPPER EUS- 01/23/2021 10:34 AM polyp removal ENDOSCOPIC EDT ULTRASOUND UPPER EUS-ENDOSCOPIC Routine 01/23/2021 10:19 AM Results for this ULTRASOUND EDT procedure are i n the results section. documented in this encounter Results UPPER EUS-ENDOSCOPIC ULTRASOUND (01/23/2021 10:19 AM EDT) Component Value Ref Test Analysis Performed At [facility] gist Range Method Time Signature UPPER [facility] ENDOSCOPIC Endoscopy ULTRASOUND _ Procedure Date: 01/23/2021 10:19 AM ? Patient Name: Violet Cowan ? Date of : 1980 ? Age: 40 ? Order #: [id number] ? Instrument Name: GIF [id number] [id number] ? Procedure: ? Upper EUS Indications: ? Gastric mucosal mass/polyp found on ? endoscopy Providers: ? Nabor Joseph MD, Osiel Schuler ? , RN, Javid De Leon Referring : ?Julieta Odell Medicines: ? Monitored Anesthesia Care Complications: ? No immediate complications. Procedure: ? Pre-Anesthesia Assessment: ? - Prior to the procedure, a H istory ? and Physical was performed, a nd ? patient medications and aller gies ? were reviewed. The patient is ? competent. The risks and bene fits of ? the procedure and the sedatio n ? options and risks were discus sed with ? the patient. All questions we re ? answered and informed consent was ? obtained. Patient identificat ion and ? proposed procedure were verif ied by ? the physician in the pre-proc edure ? area. Mental Status Examinati on: ? alert and oriented. Airway ? Examination: normal oropharyn geal ? airway and neck mobility. Res piratory ? Examination: clear to auscult ation. ? CV Examination: normal. Proph ylactic ? Antibiotics: The patient does not ? require prophylactic antibiot ics. ? Prior Anticoagulants: The pat ient has ? taken no previous anticoagula nt or ? antiplatelet agents. ASA Grad e ? Assessment: II - A patient wi th mild ? systemic disease. After revie wing the ? risks and benefits, the patie nt was ? deemed in satisfactory condit ion to ? undergo the procedure. The an esthesia ? plan was to use monitored ane sthesia ? care (MAC). Immediately prior to ? administration of medications , the ? patient was re-assessed for a dequacy ? to receive sedatives. The hea rt rate, ? respiratory rate, oxygen satu rations, ? blood pressure, adequacy of p ulmonary ? ventilation, and response to care ? were monitored throughout the ? procedure. The physical statu s of the ? patient was re-assessed after the ? procedure. ? The procedure, indications, b enefits, ? risks and alternatives were e xplained ? to the patient. Specifically ? discussed were potential ? complications including, but not ? limited to, bleeding, perfora tion, ? infection, missing a cancer, and ? adverse medication reactions. The ? Endosonoscope was introduced through ? the mouth, and advanced to th e third ? part of duodenum. The Endosco pe was ? introduced through the mouth, and ? advanced to the third part of ? duodenum. The upper EUS was ? accomplished without difficul ty. The ? patient tolerated the procedu re well. ? Findings: ? ENDOSCOPIC FINDING: : ? The examined esophagus was endoscopically normal. The ? GE junction was at 37 cm. There were no esophageal ? varices. ? There was a faint scalloped appearance to the musoca ? in the entire stomach consistent with mild portal ? hypertensive gastropathy. In the pre-pyloric antrum ? there were raised nodules in a linear pattern ? consistent with portal hypertensive gastropathy. ? These were not biopsied and were benign appearing. ? The examined duodenum was endoscopically normal. ? ENDOSONOGRAPHIC FINDING: : ? There was no sign of significant endosonographic ? abnormality in the esophagus, duodenum or celiac ? axis. The nodules in the stomach did not have flow ? present but there were collaterals beneath the ? nodules to support the diagnosis of portal ? hypertension. ? There was no sign of significant endosonographic ? abnormality in the ampulla. Specifically, the CBD and ? PD tapered normal to the ampulla. ? There was no sign of significant endosonographic ? abnormality in the common bile duct. The maximum ? diameter of the duct was 3 mm. ? There was no sign of significant endosonographic ? abnormality in the left lobe of the liver. ? There was no sign of significant endosonographic ? abnormality in the pancreatic head, body and tail. ? Normal appearing pancreatic duct. ? No lymphadenopathy seen. ? Moderate Sedation: ? Not applicable - See Anesthesia documentation Impression: ?- The nodules in the prepyloric ? antrum are due to underlying portal ? hypertensive gastropathy - no ? intervention performed Recommendation: ?- Continue beta rodolfo ? - Patient can discontinue Pro tonix ? - Follow-up with liver transp lant ? team as scheduled ? Attending Participation: ? I personally performed the entire procedure. ? Nabor Joseph MD 01/23/2021 11:05:33 AM This report has been signed electronically. Number of Addenda: 0 Note Initiated On: 01/23/2021 10:19 AM Specimen (Source) Anatomical Collection Method Collection Time Re ceived Time Location / / Volume Laterality 01/23/2021 10:19 AM EDT Julieta Odell APRN GENERAL SURGICAL ORDERABLES Performing Organization Address City/State/ZIP Code Phon e Number [place] documented in this encounter Visit Diagnoses Not [...] 10:30 AM EDT 100 mL/hr 100 mL/hr documented in this encounter Active and Recently Administered Medications Times are shown in EDT. Continuous Medication Order 01/21/2021 01/22/2021 01/23/2021 lactated ringers infusion 1030 ( New Bag - Provider: Selma Gross RN)1054 (Paused - Provider: Tessie Brown CRNA - Comment: Switch to gravity)1055 (Restarted - Provider: Tessie Brown CRNA) 100 mL/hr, at 100 mL/hr, Intravenous, CO NTINUOUS, Starting on Tue01/23/21 at 1030, Until Tue01/23/21 at 1400, Endo (Day of Procedure) documented in this encounter Care Teams Atomic Process Engineer Relationship Specialty Start Date End Date Julieta Odell APRN PCP - General Family Medicine 04/11/20 [address] [place] [address] documented as of this encounter
--- OUTSIDE RECORDS SUMMARY | 2022-04-22 08:33 | XMS_ITS | Encounter Summary ---
:1980 Author Organization [facility] [place] [address] Care Team Providers Name Role Phone Julieta Odell APRN Primary Care Provider [phone] Reason for Visit Reason Comments Medication Refill Encounter Details Date Type Department Care Team Description 12/30/2020 [place]ill [place] [facility] [place]in Mckeon [facility] Jordy [facility] [place] [address] GENERAL INTERNAL MEDICINE [phone] [place] [id number] (Wo rk) Social History Tobacco Use Types Packs/Day Years Used Date Never Smoker Smokeless Tobacco: Never Used Comments: never Alcohol Use Standard Drinks/Week Comments Not Currently 10 (1 standard drink = 0.6 oz pure alcoh ol) Alcohol Habits Answer Date Recorded How often do you have a drink containing 4 or more times a w [place] 06/21/2020 alcohol? How many drinks containing alcohol do you have 1 or 2 06/21/2020 on a typical day when you are drinking? How often do you have six or more drinks on one Not asked 06/21/2020 occasion? Comment: Not asked Sex Assigned at Date Recorded Not on file documented as of this encounter Plan of Treatment Not on filedocumented as of this encounter Visit Diagnoses Not on filedocumented in this encounter Care Teams Lighting Fixtures Decorator Relationship Specialty Start Date End Date Julieta Odell APRN PCP - General Family Medicine 04/11/20 [address] [facility] [id number] documented as of this encounter
--- OUTSIDE RECORDS SUMMARY | 2022-04-22 08:33 | XMS_ITS | Encounter Summary ---
:1980 Author Organization [facility] Address [address] [place] [address] Care Team Providers Name Role Phone Julieta Odell VAIBHAV Primary Care Provider [phone] Reason for Visit Auth/Cert Specialty Diagnoses / Procedures Referred By Contact Refer red To Contact Diagnoses UGIB (upper gastrointestinal bleed) upper GI bleed Procedures EMERGENCY IPI Referral ID Status Reason Start Date Expiration Date Visits Requ ested Visits Authorized [id number] 1 1 Encounter Details Date Type Department Care Team Description 06/22/2020 Surgery [place]ology at [facility] Siddhartha Arreola, EGD WITH BIOPSY ([facility] Jordy aleman MD [address]) [place] [address] [facility] [phone] GASTROENTEROLOGY DEPT. [place], [place] [address] Social History Tobacco Use Types Packs/Day Years Used Date Never Smoker Smokeless Tobacco: Never Used Comments: never Alcohol Use Standard Drinks/Week Comments Not Currently 10 (1 standard drink = 0.6 oz pure alcoh ol) Alcohol Habits Answer Date Recorded How often do you have a drink containing 4 or more times a w citizen [place] 06/21/2020 alcohol? How many drinks containing alcohol [...] Sign Reading Time Taken Comments Blood Pressure 99/63 06/22/2020 1:05 PM EST Pulse 76 06/22/2020 1:05 PM EST Temperature 36.9 ??C (98.4 ??F) 06/22/2020 1:05 PM EST Respiratory Rate 15 06/22/2020 1:05 PM EST Oxygen Saturation 98% 06/22/2020 1:05 PM EST Inhaled Oxygen Concentration - - Weight 68.5 kg (151 lb 0.2 oz) 06/21/2020 3:52 PM EST Height 170.2 cm (5' 7.01) 06/21/2020 3:52 PM EST Body Mass Index 23.65 06/21/2020 3:52 PM EST documented in this encounter Discharge Summaries Felix Carlson MD - 06/23/2020 11:56 AM EST Inpatient - Discharge Summary Patient Name: Violet Cowan Patient Age: 39 y.o. Birthdate: 1980 Admit date: 06/21/2020 Discharge date and time: 06/23/20, 1:30 pm Attending Physician: Felix Carlson MD Discharge Diagnoses (Hospital Problems) and Secondary Diagnoses (Chronic Problems): Active Hospital Problems Diagnosis ??? UGIB (upper gastrointestinal bleed) Resolved Hospital Problems No resolved problems to display. Active Non-Hospital Problems Diagnosis ??? Alcoholic hepatitis with ascites ??? Alcoholic hepatitis ??? Jaundice ??? GI bleed Follow-up Recommendations for Providers: - Please follow up CBC and BMP (last hemoglobin on 06/23 was 9.2) when seen by PCP in follow up Operations/Major Procedures: Operations: Procedure(s): EGD WITH BIOPSY (WRVU 2.49) Other Major Procedures: none History of Presentation: Violet Cowan is a 39 y.o. female with history of newly diagnosed alcoholic cirrhosis (no biopsy), medically manage microprolactinoma, LEONA, who presents as a transfer from [facility] for UGIB. ?? Per the pt, she presented to [facility] with 2 day history of nausea/vomiting, weakness and dizziness. She explains that after DC from [facility] in [place], she admitted herself to a rehab facility near [facility] for 2 wks as she was nervous about drinking. Since then, she has been home. Last drink was 04/01 08/20. She explains that for the past 2-3 days, she has been feeling unwell with mild fatigue. Yesterday she developed dizziness with standing up. This progressed and was associated with nausea. She denies any emesis at home. She continued to have dizziness so called EMS. When EMS arrived, she had one episode of emesis with slight bright red blood. She denies any overt GI bleeding. No melanotic stoolsor coffee ground emesis. She was given 500 cc of IVF. Initial hb was 8.3 which had decreased to 6.8 after the fluids. Therefore, she was started on an octreotide gtt, PPI gtt and IV CTX. GI was contacted and accepted pt for transfer. She received 2 units of pRBC and her SBPs increased from mid 80s to 9 /. ?? OSH labs: CBC: wbc 6/ Hb 6.8/hct 22 /plts 170 CMP: Na 138/ K 3.8/ cl 102/ CO2 21/ BUN 11/ Cr 0.9 AST 51/ ALT 24/ Alk Phos 114/ Albumin 2.6/ TB 8 INR 1.4 Ammonia <10 ?? Prior history is significant for multiple recent admissions at [facility] from 04/11- 04/17 for UGIB 2/2 pre-pyloric ulcer s/p EGD and IR embolization, 04/19-04/22 for hepatic encephalopathy and 04/26-05/06 for Decompensated cirrhosis where she was discharged with prednisolone for alcoholic hepatitis. During the last admission, the team had reached out to [facility] for liver transplant and she was discharged with an outpt referral.Liver eval interrupted as pt's [id number]-fgj-ttr (donor) tested positive for COVID. She currently denies any abd pain, diarrhea or constipation. No fevers or chills. Mild nausea and fatigue. Hospital Course: #Likely blood loss anemia - possible acute on chronic #EtOH Cirrhosis The patient was admitted to the ISCU for concerns of an upper GI bleed. She had already received twounits of blood at the outside hospital. When she arrived here, she was started on an octreotide dripand IV PPI BID. US abdomen was done at bedside and did not visualize much ascites to tap. Hg was monitored regularly. She had some hypotension (80s/40s) the first night which resolved with fluids. GI performed and upper endoscopy (results below). No active bleed was visualized and mainly notable for portal hypertensive gastropathy. She was taken off of the octreotide drip after the procedure and encouraged to eat. She reported feeling much better and was able to hold down a good quantity of food. Bythe next morning, she reported that her dizziness had subsided. A formal US abdomen was done to again check if there was fluid to tap but there was too little so she was discharged to her 's care with close follow-up with her PCP and [facility]. She had received 2 units of pRBC at OSH, hemoglobinremained stable in 9s while at [facility]. She received IV Ceftriaxone for SBP prophylaxis x 3 days while inpatient, and this was transitioned to PO Ciprofloxacin x 2 days on discharge. Also received 2 doses of IV Vitamin K for elevated INR of 1.7 on arrival; which had improved to 1.5 by 06/22. Resumed home PPI BID on discharge. Important Studies and Lab Data: Labs: Recent Labs 06/23/20 0444 06/22/20 1358 06/22/20 0103 06/21/20 2219 06/21/20 1540 WBC 8.0 -- 6.1 6.2 7.2 HGB 9.2* 10.3* 9.1* 9.5* 9.8* HCT 30.5* 32.7* 29.3* 30.1* 31.2* PLATELET 187 -- 171 170 175 Recent Labs 06/23/20 0444 06/22/20 0103 06/21/20 1540 NA 138 136 138 K 4.3 4.3 4.8 CL 114* 111* 110* CO2 16* 18* 19* BUN 10 11 10 CREATININE 0.83 0.91 0.82 GLUCOSE 156 155 98 Recent Labs 06/23/20 0444 06/22/20 0103 06/21/20 1540 CALCIUM 8.5 8.2* 8.6 MAGNESIUM -- -- 0.78 PHOS -- -- 3.2 Recent Labs 06/22/20 1358 06/21/20 1540 AST 54* 48* ALT 18 17 ALKPHOS 106* 104 BILITOT 8.5* 9.2* BILIDIR 5.5* 5.4* Recent Labs 06/22/20 1358 06/21/20 1540 PT 17.6* 19.4* PTT 42* 40* INR 1.5 1.7 Studies: UPPER GI ENDOSCOPY [facility] Endoscopy Procedure Date: 06/22/2020 10:19 AM ? Patient Name: Violet Cowan ? N: [id number] ? Date of : 1980 ? Age: 39 ? Order #: [id number] ? Instrument Name: [id number] ? Procedure: ? Upper GI endoscopy Indications: ? Hematemesis Providers: ? Madi Arreola MD, Genie Boyd ?Javid Martin, ARANZA, Vanessa ?Doc David, Inventory Specialist Manager Referring : ? Medicines: ? Monitored Anesthesia Care Complications: ? No immediate complications. Procedure: ? Pre-Anesthesia Assessment: ?- Prior to the procedure, a History ?and Physical was performed, and ?patient medications, allergies and ?sensitivities were reviewed. The ?patient's tolerance of previous ?anesthesia was reviewed. ?- The risks and benefits of the ?procedure and the sedation options ?and risks were discussed with the ?patient. All questions were answered ?and informed consent was obtained. ?- Patient identification and proposed ?procedure were verified prior to the ?procedure by the physician, the nurse ?and the anesthesiologist. The ?procedure was verified in the ? endoscopy suite. ?The procedure, indications, benefits, ?risks and alternatives were explained ?to the patient. Specifically ?discussed were potential ?complications including, but not ?limited to, bleeding, perforation, ?infection, missing a cancer, and ?adverse medication reactions. The ?Endoscope was introduced through the ?mouth, and advanced to the third part ?of duodenum. The patient tolerated ?the procedure well. The upper GI ?endoscopy was accomplished without ?difficulty. The patient tolerated the ?procedure well. ? Findings: ?Localized erythematous, congested and edematous ?nodular mucosa without bleeding with punctate areas ?of exudate was found in the gastric antrum, suspect ?this is reactive secondary to prior ulcer. Biopsies ?were taken with a cold forceps for histology and H. ?pylori. ?Moderate portal hypertensive gastropathy without ?bleeding was found in the entire examined stomach. ?Normal retroflexion without signs of gastric varices. ?The examined esophagus was normal without evidence ?esophageal varices. ?The examined duodenum was normal. ?No blood was seen in the stomach or duodenum during ?this exam. ? Moderate Sedation: ?Not applicable - See Anesthesia documentation Impression: ?- Erythematous, congestive and ?edematous nodular mucosa in the ?antrum, suspect this is reactive. ?Biopsied. ?- Portal hypertensive gastropathy. ?Suspect etiology of the bleeding was ?either PHG or reactive changes. ?- Normal esophagus. ?- Normal examined duodenum. Recommendation: ?- [facility] care. ?- Advance diet as tolerated. ?- Follow up gastric biopsies ?- Trend H/H ?- OK to stop octreotide ?- Continue CTX x total 5 days ?- Continue protonix 40 mg BID po ? Procedure Code(s): ?? --- Professional --- ?61943, Esophagogastroduodenoscopy, ?flexible, transoral; with biopsy, ?single or multiple ?--- Technical --- ?05712, Esophagogastroduodenoscopy, ?flexible, transoral; with biopsy, ?single or multiple CPT copyright 2019 [employer]. All rights reserved. The codes documented in this report are preliminary and upon tubing machine operator review may be revised to meet current compliance requirements. Attending Participation: ?I was present and participated during the entire ?procedure from insertion to removal of the endoscope. ? L. Juventino Arreola MD 06/22/2020 11:17:59 AM Number of Addenda: 0 Note Initiated On: 06/22/2020 10:19 AM Pending Studies and Lab Data: No current labs Discharge Conditions/Prognosis: Stable Discharge to: Home to 's care Discharge Medications: Your Medications New Medications Dose Details ciprofloxacin 500 mg Tab Commonly known as: Cipro Take 1 tablet by mouth 2 times daily for 2 days. 500 mg Quantity: 4 tablet Refills: 0 Continued medications, unchanged Dose Details acamprosate DR 333 mg Tbec Commonly known as: Campral Take 2 tablets by mouth 3 times daily. 666 mg Quantity: 180 tablet Refills: 0 acetaminophen 500 mg Tab Commonly known as: Tylenol Take 1 tablet by mouth every 6 hours as needed for Pain. 500 mg Quantity: 30 tablet Refills: 1 dextromethorphan-guaiFENesin 10-100 mg/5 mL Syrp Commonly known as: Robitussin Take 5 mLs by mouth every 4 hours as needed for Cough. 5 mL Quantity: 118 mL Refills: 0 folic acid 1 mg Tab Commonly known as: Folvite Take 1 tablet by mouth daily. 1,000 mcg Quantity: 90 tablet Refills: 3 multivitamin with minerals 9 mg iron-400 mcg Tab Commonly known as: THERA-M Take 1 tablet by mouth daily. 1 tablet Quantity: 30 tablet Refills: 0 ondansetron ODT 8 mg Tbdl Commonly known as: Zofran-ODT Take 1 tablet by mouth every 8 hours as needed for Nausea. 8 mg Quantity: 20 tablet Refills: 0 pantoprazole EC 40 mg Tbec Commonly known as: Protonix Take 1 tablet by mouth 2 times daily. 40 mg Quantity: 90 tablet Refills: 3 thiamine Commonly known as: Vitamin B1 Take 1 tablet by mouth daily. 100 mg Quantity: 30 tablet Refills: 0 STOPPED Medications prednisoLONE 5 mg Tab Commonly known as: Millipred Updated Allergies/ADRs: No Known Allergies Instructions Given to Patient at Discharge: Patient Instructions Discharge Instructions Why you were hospitalized: You were admitted for dizziness and concerns of a repeat gastric bleed. Your EGD did not show any active bleeding. You are beign prescribed oral antibiotics which you should take until weds. Patient Instructions: Please take antibiotics as prescribed. Please follow-up with [facility] for ongoingtransplant evaluation. Call your doctor or seek medical attention if you experience any alarming symptoms. This may include, but is not limited to, fever, chest pain, severe shortness of breath, nausea with vomiting, persistent decrease in your urinary output, severe pain, or any other concerning symptoms. Activity level: As tolerated. Diet: No new restrictions. Driving: Please do not drive if you feel lightheaded, dizzy, faint, or taking any opioids/narcotics (i.e oxycodone). It is advisable that you do not drive till you follow-up with your primary care physician. Shower/Bath: No new restrictions. Wound Care: N/A Home Oxygen therapy: N/A Changes in Your Medications: New Medications: ciprofloxacin 500 mg twice daily until 06/25 evening Stop these medications: prednisolone Follow-Up Appointments Please follow up with your [facility] transplant team Date and Time Provider and Specialty Location 07/02/20 1:00 Julieta Odell APRN , PCP [address] / [facility] [address] Your Inpatient Doctor(s) at [facility]: Felix Carlson MD Your Primary Care Provider: Julieta Odell APRN [address] / [facility] [address] For questions regarding this document or issues relating to this hospitalization on the Medical Service, please contact your inpatient physician through the [facility] Clay Dry Press Helper . Issues after hours and on weekends will be handled by the Hospitalist staff on-call. General Instructions None Discharge References/Attachments: Discharge References/Attachments None Inpatient Provider Contact Information: Charli Arriola MD Pager [phone] Electronically Signed By: Charli Arriola MD 06/23/2020 documented in this encounter Discharge Instructions Patient InstructionsDorian Velasquez MA - 06/23/2020 10:30 AM EST Discharge Instructions Why you were hospitalized: You were admitted for dizziness and concerns of a repeat gastric bleed. Your EGD did not show any active bleeding. You are beign prescribed oral antibiotics which you should take until . Patient Instructions: Please take antibiotics as prescribed. Please follow-up with [facility] for ongoingtransplant evaluation. Call your doctor or seek medical attention if you experience any alarming symptoms. This may include, but is not limited to, fever, chest pain, severe shortness of breath, nausea with vomiting, persistent decrease in your urinary output, severe pain, or any other concerning symptoms. Activity level: As tolerated. Diet: No new restrictions. Driving: Please do not drive if you feel lightheaded, dizzy, faint, or taking any opioids/narcotics (i.e oxycodone). It is advisable that you do not drive till you follow-up with your primary care physician. Shower/Bath: No new restrictions. Wound Care: N/A Home Oxygen therapy: N/A Changes in Your Medications: New Medications: ciprofloxacin 500 mg twice daily until 06/25 evening Stop these medications: prednisolone Follow-Up Appointments Please follow up with your [facility] transplant team Date and Time Provider and Specialty Location 07/02/20 1:00 Julieta Odell APRN , PCP [address] / [place] [address] Your Inpatient Doctor(s) at [facility]: Felix Carlson MD Your Primary Care Provider: Julieta Odell APRN [address] / [place] [address] For questions regarding this document or issues relating to this hospitalization on the Medical Service, please contact your inpatient physician through the [facility] [employer] Dry [employer] Helper . Issues after hours and on weekends will be handled by the Hospitalist staff on-call. documented in this encounter Medications at Time of Discharge Medication Sig Dispensed Refills Start Date End Date acetaminophen (Tylenol) Take 1 tablet by 30 tablet 1 2019 500 mg Tablet mouth every 6 hours as needed for Pain. dextromethorphan-guaiFENe Take 5 mLs by mouth 118 mL 0 1 sin (Robitussin) 10-100 every 4 hours as mg/5 mL Syrup needed for Cough. ondansetron ODT Take 1 tablet by 20 tablet 0 05/06/2020 (Zofran-ODT) 8 mg Tablet, mouth every 8 hours Rapid Dissolve as needed for Nausea. folic acid (Folvite) 1 mg Take 1 tablet by 90 tablet 3 04/01 Tablet mouth daily. multivitamin with Take 1 tablet by 30 tablet 0 04/18/2020 minerals (THERA-M) 9 mg mouth daily. iron-400 mcg Tablet pantoprazole EC Take 1 tablet by 90 tablet 3 04/17/2020 (Protonix) 40 mg Tablet, mouth 2 times Delayed Release (E.C.) daily. thiamine (Vitamin B1) Take 1 tablet by 30 tablet 0 04/18/[address] (Campral) Take 2 tablets by 180 tablet 0 04/01 333 mg Tablet, Delayed mouth 3 times Release (E.C.) daily. ciprofloxacin (Cipro) 500 Take 1 tablet by 4 tablet 0 06/0206/25/2020 mg Tablet mouth 2 times daily for 2 days. documented as of this encounter Progress Notes Felix Carlson MD - 06/23/2020 1:50 PM EST Hospital Medicine - Attending Day of Discharge Documentation Discharge diagnosis Active Hospital Problems Diagnosis ??? UGIB (upper gastrointestinal bleed) Resolved Hospital Problems No resolved problems to display. Secondary Issues Active Non-Hospital Problems Diagnosis ??? Alcoholic hepatitis with ascites ??? Alcoholic hepatitis ??? Jaundice ??? GI bleed I have personally seen and examined the patient and they are ready for discharge. Select the appropriate statement that describes your involvement and care and omit the other: I spent <30 minutes (Day of Discharge Code 89760) involved in the final examination of the patient, discussion of the hospital stay, instructions for continuing care to all relevant caregivers, and preparation of discharge records, prescriptions and referral forms. Plans ? Discharge to Home ? Follow-up scheduled with PCP, GI ? Please see the Discharge Summary for complete details of any medication changes and additional plans. Iveth Vera - 06/23/2020 12:56 PM EST Occupational Therapy Note OT orders received and chart reviewed. Spoke with PT this morning who had a conversation with ARANZA vivar pt is independent. Will continue to monitor. ABEL Hunt Kyle Paez RN - 06/23/2020 7:01 AM EST Boat Outboard Engine Mechanic IDR/ Daily Note: LOS: 1 day Primary Insurance: [employer] [place] Secondary Insurance: N/A PCP: Julieta Odell, TABLEAU ANALYST [phone] Code Status: Attempt Cardiopulmonary Resuscitation - Inpatient Decision Maker: self or Nawaf Kellyton would be surrogate decision maker per Reason for Hospitalization per H&P or ID: Violet Camryn is a 39 y.o. female w/ PMH of newlydiagnosed??alcoholic cirrhosis??(no biopsy), prior medically managed microprolactinoma, LEONA for an upper GI bleed. Patient Active Problem List Diagnosis Code ??? GI bleed K92.2 ??? Jaundice R17 ??? Alcoholic hepatitis with ascites K70.11 ??? Alcoholic hepatitis K70.10 ??? UGIB (upper gastrointestinal bleed) K92.2 [facility] and [facility] reviewed prior to IDR. Patient discussed with Medicine Blue Team, nursing, CM and MANAGER RESEARCH AND DEVELOPMENT. Per interdisciplinary rounds patient continues to require inpatient status for ultrasound for ? Of ascites and possible paracentesis tap. Anticipated d/c and plan: Patient is medically ready/ not medically ready. Possible discharge on 06/23 Current discharge needs are uncertain but based on current medical status and medications, past medical hx or prior needs; the patient would need No Needs when medically ready for discharge. Current referrals placed to: one CM Interventions: CM will continue to monitor progress, follow for continuity of care and assist with discharge planning while patient is inpatient status on current unit. Kyle Paez RN Office of Care Management student life dean Pager: [phone] Zahida Connors RN - 06/23/2020 3:57 AM EST OUTCOME EVALUATION NOTE: OUTCOME SUMMARY: Violet had a good shift. A/Ox4, VSS on RA, see flow sheet. Denies CP/SOB. No other complaints of any discomfort. Ambulating independently around room, tolerating well. No other significant events. Will continue to monitor. PLAN MOVING FORWARD: D/C planning as appropriate INDIVIDUALIZED FALL PREVENTION INTERVENTIONS: Patient-specific fall risk factors per assessment: [current deficits]: IV, generalized weakness Assistance [level of assistance required for transfers and ambulation]: Indep Supervision [direct monitoring required during toileting and ADLs]: Indep Surveillance [continuous indirect monitoring]: cody Brian within reach, purposeful rounding Patient-specific fall prevention interventions for sensory deficits provided, if applicable: [X] No CPG GOAL OUTCOME EVALUATION: Kimmy Alvarado RN - 06/22/2020 4:43 PM EST Pt arrived to floor from ISCU at 1640. A&O x4, VSS, RA, no complaint of pain, assessment as documented. Menu provided to order dinner. Roc applied. Safety maintained, will continue to monitor. Susi Hernandez RN - 06/22/2020 12:20 PM EST Pt arrived to floor from PACU, pt initiated on telemetry, VSS, will continue to monitor Charli Arriola MD - 06/22/2020 7:50 AM EST [facility] (#[id number]) Progress Note Patient info: Name: Violet Cowan : 1980 PCP: Julieta Odell APRN PCP phone number: [phone] Date of Admission: 06/21/2020 ( Hospital Day 1 day ) Responsible Attending:Gulshan Dockery MD ID: Violet Cowan is a 39 y.o. female w/ PMH of newly diagnosed alcoholic cirrhosis (no biopsy), prior medically managed microprolactinoma, LEONA on HD# 1 for an upper GI bleed. 24 Hour Events: - had soft pressures overnight (80s/40s) and was given 500 mL LR bolus - Mg partially repleted (d/c due to pain at IV site) - NPO - Hg just mildly decreased (9.8 on admission to 9.1 this morning) Plan updates/changes today: - had EGD today, no active bleeding. Some gastropathy visible. - per GI recommendations, stopping octreotide drip post EGD - rechecking coags and Hg early afternoon - ordered limited abdominal US tomorrow to assess volume of ascites Objective: Vitals Last value Range last 24 hrs Temperature Temp: 36.7 ??C (98.1 ??F) Temp: [36.4 ??C (97.5 ??F)-37.2 ??C (99 ??F)] Heart Rate Heart Rate: 74 Heart Rate: [74-93] Blood Pressure BP: 94/62 BP: (84-117)/(45-69) Art Line BP BP (Arterial Line): -- MAP (NBP): [53 mmHg-78 mmHg] Respiratory Rate Resp: 17 Resp: [13-21] SpO2 SpO2: 98 % SpO2: [96 %-100 %] Oxygen Delivery Oxygen Therapy O2 Device: None (Room air) O2 Flow Rate (L/min): 6 L/min Physical Exam: Gen: AOx3, NAD Eyes: PERRLA, EOMI, scleral icterus ENT: moist mucous membranes, -erythema/exudate, neck supple, no lymphadenopathy, no JVD CV: RRR, S1 S2 normal, without murmurs, rubs, or gallops Respiratory: clear to auscultation bilaterally, without rales or rhonchi, good inspiratory effort GI: soft, nontender, nondistended, no rebound tenderness or guarding, normoactive bowel sounds, no hepatosplenomegaly Skin: normal temperature and turgor, jaundiced, no cyanosis, no lesions, rashes, or petechiae Neuro: CN II-XII grossly intact, normal strength, normal sensation, without focal deficits Musculoskeletal: no joint swelling or pain Ext: no LE edema, 2+ peripheral pulses Medications: ??? folic acid 1 mg Oral Daily ### ??? multivitamin with minerals 1 tablet Oral Daily ### ??? thiamine 100 mg Oral Daily ### ??? pantoprazole 40 mg Intravenous BID ### ??? sodium chloride 0.9 % (flush) 5 mL Intravenous BID ### ??? cefTRIAXone 1 g Intravenous Q24H ### ??? phytonadione, vitamin K (Aqua-Mephyton) IV 10 mg Intravenous Daily ### sodium chloride 0.9 % (flush), lidocaine, ondansetron OR ondansetron ? ? octreotide (SandoSTATIN) (standard ADULT & Pedi greater than 20kg) infusion 50 mcg/hr (06/22/20 1122) Labs: Recent Labs 06/22/20 0103 06/21/20 2219 06/21/20 1540 WBC 6.1 6.2 7.2 HGB 9.1* 9.5* 9.8* HCT 29.3* 30.1* 31.2* PLATELET 171 170 175 Recent Labs 06/22/20 0103 06/21/20 1540 NA 136 138 K 4.3 4.8 CL 111* 110* CO2 18* 19* BUN 11 10 CREATININE 0.91 0.82 GLUCOSE 155 98 Recent Labs 06/22/20 0103 06/21/20 1540 CALCIUM 8.2* 8.6 MAGNESIUM -- 0.78 PHOS -- 3.2 Recent Labs 06/21/20 1540 AST 48* ALT 17 ALKPHOS 104 BILITOT 9.2* BILIDIR 5.4* No results for input(s): TROPONINT in the last 72 hours. No results for input(s): PHART, PO2ART, [id number] in the last 72 hours. No results for input(s): PHVEN, KHB8FUM, PO2VEN, [id number] in the last 72 hours. Microbiology: 06/21/20 COVID negative Pertinent radiology/diagnostic studies: No recent imaging. ASSESSMENT: Violet Cowan is a 39 y.o. female with history of alcoholic cirrhosis, prior medically managed microprolactinoma, and LEONA who presents as a transfer from [facility] with concerns of an UGIB. ?? PLAN: #UGIB with known gastric ulcer #Decompensated alcoholic cirrhosis MELD-Na score: 27 at 05/06/2020 5:49 AM MELD score: 27 at 05/06/2020 5:49 AM Calculated from: Serum Creatinine: 0.57 mg/dL (Rounded to 1 mg/dL) at 05/06/2020 5:49 AM Serum Sodium: 136 mmol/L at 05/06/2020 5:49 AM Total Bilirubin: 19.5 mg/dL at 05/06/2020 5:49 AM INR(ratio): 2.4 at 05/06/2020 5:49 AM Age: 39 years 4 months -s/p 2 unit pRBC -active T+S -f/u CBC, CMP -continue octreotide gtt 50 mcg/unit, IV pantoprazole 40 mg BID -IV zofran 4m g Q8 prn -continue IV CTX 1 g Q24 x 5 days -consult GI, recs pending -NPO, EGD on 06/22 -continue thiamine, folate -will evaluate with a bedside U/S for ascites, possible para Routine Diet: NPO (give meds) DVT: SCDs GI: pantoprazole 40 mg BID Activity: as tolerated CODE STATUS: Attempt Cardiopulmonary Resuscitation - Inpatient Dispo: pending course Charli Arriola MD, PGY-1 06/22/2020 Blue Team #[id number] Associated attestation - Felix Carlson MD - 06/22/2020 3:04 PM EST Hospital Medicine Service Attending Documentation Please see Dr. Arriola's note for details of the patient history of presentation and data. I have discussed, reviewed and agree with the documented History, Physical findings, Assessment and Plan of care. I have examined the patient myself and personally reviewed all studies. Additions to the history, physical, assessment and plan include the following: EGD notable for gastropathy and varices, although no signs of active bleeding. Per GI will d/c octreotide. Otherwise will plan for formal Abd US and diagnostic paracentesis if fluid pocket can be identified. Will advance diet as tolerates. I have examined the patient myself and personally reviewed all studies. In addition, I certify that I am a [facility] credentialed attending provider with admitting privileges and that the patient meets or has met medical necessity to require an inpatient IPI level of care meeting a minimum of two midnights or is on the CMS inpatient only procedure list (status C) due to: Further evaluation and management of acute blood loss anemia requiring 2 units pRBC transfused at OSH MD Mal Padilla Caitlin A, RN - 06/21/2020 6:48 PM EST OUTCOME EVALUATION NOTE: OUTCOME SUMMARY: A&Ox4, VSS on RA, SBP >90, afebrile, NSR HR 80-90s. EKG obtained, labs obtained, swabbed for covid. Type and screen and blood content obtained. SBA to the BR, voided 500mL. Octreotide gtt running at 10mL/hr (50mcg/hr), per orders. Denies pain at this time, denies numbness/tingling. US of abdomen performed at the bedside by the provider. Hgb recheck will be at 10pm tonight. Call soni in reach, will continue to monitor. PLAN MOVING FORWARD: Monitor BP/VS Monitor Hgb, recheck at 10pm INDIVIDUALIZED FALL PREVENTION INTERVENTIONS: Patient-specific fall risk factors per assessment: [current deficits]: leads/lines, weakness Assistance [level of assistance required for transfers and ambulation]: SBA Supervision [direct monitoring required during toileting and ADLs]: eyes on Surveillance [continuous indirect monitoring]: Barnes monitor, bed alarm, rounding, call soni Patient-specific fall prevention interventions for sensory deficits provided, if applicable: [X] Yes documented in this encounter H&P Notes Genie Martin - 06/22/2020 10:28 AM EST Gastroenterology and Hepatology Pre-Procedure History and Physical Exam Procedure: EGD: Indication: hematemesis Patient Active Problem List Diagnosis Code ??? GI bleed K92.2 ??? Jaundice R17 ??? Alcoholic hepatitis with ascites K70.11 ??? Alcoholic hepatitis K70.10 ??? UGIB (upper gastrointestinal bleed) K92.2 EXAM: HEENT: Airway examined, oropharynx clear Mallampati Score: II (soft palate, uvula, fauces visible) LUNGS: Clear to auscultation HEART: Regular rate and rhythm, normal S1, S2 ABDOMEN: Normal bowel sounds, soft, non tender, non distended, A/P Proceed with the planned endoscopic procedure. ASA 4 - Patient with severe systemic disease that is a constant threat to life Sedation Plan: anesthesia Risks and benefits of the procedure explained to the patient. Consent signed. Please see separate consult note for further details. Genie Martin MD Gastroenterology PGY-6 06/22/2020 10:32 AM Pager #[phone] Maribell Butler MD - 06/21/2020 1:33 PM EST [facility] Medicine - Admission History & Physical - BLUE Team, Pager [phone] Chief Complaint: UGIB History of Present Illness: Violet Cowan is a 39 y.o. female with history of newly diagnosed alcoholic cirrhosis (no biopsy), medically manage microprolactinoma, LEONA, who presents as a transfer from [facility] for UGIB. Per the pt, she presented to [facility] with 2 day history of nausea/vomiting, weakness and dizziness. She explains that after DC from [facility] [place], she admitted herself to a rehab facility near [facility] for 2 wks as she was nervous about drinking. Since then, she has been home. Last drink was 04/01 08/20. She explains that for the past 2-3 days, she has been feeling unwell with mild fatigue. Yesterday she developed dizziness with standing up. This progressed and was associated with nausea. She denies any emesis at home. She continued to have dizziness so called EMS. When EMS arrived, she had one episode of emesis with slight bright red blood. She denies any overt GI bleeding. No melanotic stoolsor coffee ground emesis. She was given 500 cc of IVF. Initial hb was 8.3 which had decreased to 6.8 after the fluids. Therefore, she was started on an octreotide gtt, PPI gtt and IV CTX. GI was contacted and accepted pt for transfer. She received 2 units of pRBC and her SBPs increased from mid 80s to 9 /. OSH labs: CBC: wbc 6/ Hb 6.8/hct 22 /plts 170 CMP: Na 138/ K 3.8/ cl 102/ CO2 21/ BUN 11/ Cr 0.9 AST 51/ ALT 24/ Alk Phos 114/ Albumin 2.6/ TB 8 INR 1.4 Ammonia <10 Prior history is significant for multiple recent admissions at [facility] from 04/11- 04/17 for UGIB 2/2 pre-pyloric ulcer s/p EGD and IR embolization, 04/19-04/22 for hepatic encephalopathy and 04/26-05/06 for Decompensated cirrhosis where she was discharged with prednisolone for alcoholic hepatitis. During the last admission, the team had reached out to [facility] for liver transplant and she was discharged with an outpt referral.Liver eval interrupted as pt's [id number] (donor) tested positive for COVID. She currently denies any abd pain, diarrhea or constipation. No fevers or chills. Mild nausea and fatigue. Review of Systems: ?? GENERAL ?? HEENT ?? COR ?? PULM All negative All negative ?? All negative ?? All negative ?? Weight loss ?? Headache Chest Pain ?? Non-productive cough ?? Weight gain ?? Vision change ?? Palpitations ?? Productive cough ?? Fevers ?? Sinus congestion ?? Orthopnea ?? Wheezing ?? Chills ?? Hoarseness ?? Leg edema ?? Hemoptysis ?? Night sweats ?? Epistaxis ?? Paroxysmal nocturnal dyspnea ?? Pleuritic pain x?? Fatigue ? Syncope ?? SOB ? Claudication ?? MACDONALD ? MSK ?? RENAL ?? ENDO ?? GI All negative All negative All negative All negative ?? Arthralgias ?? Frequency ?? Heat intolerance ?? Blood in stool ?? Myalgias ?? Urgency ?? Cold intolerance ?? Dysphagia ?? Weakness ?? Hematuria ?? Polydipsia ??x Coffee ground emesis ?? Stiffness ?? Flank pain ?? Polyphagia ?? Abdominal discomfort ? Dysuria ?? Cushingoid ?? Constipation ? Foamy urine ? Diarrhea ? Discharge ?x Nausea/Vomiting ? LYMPH ?? SKIN ?? NEURO ?? PSYCH x All negative x All negative x All negative x All negative ?? Swollen nodes ?? Rash ?? Seizures ?? Depressed affect ?? Tender nodes ?? Ulcers ?? Tremors ?? Occupational stress ?? Diffuse nodes ?? Bruising ?? Spasticity ?? Anxiety ?? Local nodes ?? Tanned skin ?? Focal weakness ?? Insomnia ?? Night sweats ?? Telangiectasias ?? Diplopia ? Paresthesias ? Dizziness ? Past Medical/Surgical History: Past Medical History: Diagnosis Date ??? Cirrhosis, alcoholic ??? UGIB (upper gastrointestinal bleed) gastric ulcer 04/2020 Medications: No current facility-administered medications on file prior to encounter. Current Outpatient Medications on File Prior to Encounter Medication Sig Dispense Refill ??? acetaminophen (Tylenol) 500 mg Tablet Take [...] asneeded for Nausea. 20 tablet 0 ??? prednisoLONE (Millipred) 5 mg Tablet Take 8 tablets by mouth daily. Last day of the 7-day courseis 05/06/2020 90 each 0 ??? folic acid (Folvite) 1 mg Tablet [...] by mouth daily. 30 tablet 0 ??? acamprosate DR (Campral) 333 mg Tablet, Delayed Release (E.C.) Take 2 tablets by mouth 3 times daily. 180 tablet 0 Allergies: No Known Allergies Social History: Social History Socioeconomic History ??? Marital status: Spouse name: None ??? Number of children: None ??? Years of education: None ??? Highest education level: None Occupational History ??? None Social Needs ??? Financial resource strain: None ??? Food insecurity Worry: None Inability: None ??? Transportation needs Medical: None Non-medical: None Tobacco Use ??? Smoking status: Never Smoker ??? Smokeless tobacco: Never Used ??? Tobacco comment: never Substance and Sexual Activity ??? Alcohol use: Not Currently Alcohol/week: 10.0 standard drinks Types: 10 Shots of liquor per week Frequency: 4 or more times a week Drinks per session: 1 or 2 ??? Drug use: Never ??? Sexual activity: Yes Partners: Male control/protection: Other-see comments Comment: none Lifestyle ??? Physical activity Days per week: None Minutes per session: None ??? Stress: None Relationships ??? Social connections Talks on phone: None Gets together: None Attends rastafari service: None Active member of club or organization: None Attends meetings of clubs or organizations: None Relationship status: None ??? Intimate partner violence Fear of current or ex partner: None Emotionally abused: None Physically abused: None Forced sexual activity: None Other Topics Concern ??? None Social History Narrative ??? None Family History: No family history on file. Physical Exam: Most Recent Range (last 24) Temperature Temp: 37.2 ??C (99 ??F) Temp: [37.2 ??C (99 ??F)] Heart Rate Heart Rate: 76 Heart Rate: [76] Blood Pressure BP: 106/58 BP: (106)/(58) Respiratory Rate Resp: 13 Resp: [13] SpO2 SpO2: 100 % SpO2: [100 %] Gen: AOx3, NAD Eyes: PERRLA, EOMI, scleral icterus ENT: moist mucous membranes, -erythema/exudate, neck supple, no lymphadenopathy, no JVD CV: RRR, S1 S2 normal, without murmurs, rubs, or gallops Respiratory: clear to auscultation bilaterally, without rales or rhonchi, good inspiratory effort GI: soft, nontender, nondistended, no rebound tenderness or guarding, normoactive bowel sounds, no hepatosplenomegaly Skin: normal temperature and turgor, jaundiced, no cyanosis, no lesions, rashes, or petechiae Neuro: CN II-XII grossly intact, normal strength, normal sensation, without focal deficits Musculoskeletal: no joint swelling or pain Ext: no LE elizabeth, 2+ peripheral pulses Laboratory: Recent Results (from the past 24 hour(s)) Hemogram Result Value Ref Range WBC 7.2 4.0 - 9.5 x10(3)/mcL RBC 3.79 (L) 4.00 - 5.21 x10(6)/mcL Hemoglobin 9.8 (L) 11.7 - 15.5 gm/dL Hematocrit 31.2 (L) 35.7 - 45.8 % MCV 82.3 (L) 82.6 - 94.4 fL MCH 25.9 (L) 27.1 - 32.0 pg MCHC 31.4 (L) 31.7 - 35.0 gm/dL Platelets 175 145 - 357 x10(3)/mcL RDWSD 49.9 (H) 37.0 - 46.0 fL RDWCV 16.5 (H) 11.5 - 14.1 % MPV 9.7 7.6 - 12.9 fL nRBC % Auto 0.0 % nRBC Abs Auto 0.000 0.000 - 0.000 x10(3)/mcL Differential, Automated Result Value Ref Range Neutrophils % 52.5 % Neutr Abs (ANC) 3.77 1.70 - 6.10 x10(3)/mcL Lymphocytes % 35.9 % Lymphocytes Abs 2.6 0.9 - 3.2 x10(3)/mcL Monocytes % 9.6 % Monocyte Abs 0.7 0.3 - 0.9 x10(3)/mcL Eosinophils % 1.1 % Eosinophils Abs 0.1 0.0 - 0.4 x10(3)/mcL Basophils % 0.8 % Basophils Abs 0.1 0.0 - 0.1 x10(3)/mcL Immature Gran % 0.10 % Josey Gran Abs 0.01 0.00 - 0.04 x10(3)/mcL POCT Glucose Result Value Ref Range POC Glucose 92 65 - 199 mg/dL Microbiology: Microbiology Results (Last 30 days) No results found for the last 720 hours. Imaging and Diagnostics: EGD (04/11/20): Findings: ?Esophagogastric landmarks were identified: the Z-line ?was found at 40 cm and the gastroesophageal junction ?was found at 40 cm from the incisors. ?The stomach and duodenum were filled with fresh blood ?making visualization difficult. ?Active bleeding throughout procedure. ?One spurting cratered gastric ulcer with spurting ?hemorrhage (Patricio Class Ia) was found in the ?prepyloric region of the stomach. The lesion was 5 mm ?in largest dimension. To stop active bleeding, four ?hemostatic clips were successfully placed (MR ?conditional). There was no bleeding at the end of the ?procedure. ?The examined duodenum was normal. ? Moderate Sedation: ?Not applicable - See Anesthesia documentation Impression: ?- Esophagogastric landmarks ?identified. ?- Spurting gastric ulcer with ?spurting hemorrhage (Patricio Class ?Ia). Clips (MR conditional) were ?placed. ?- Normal examined duodenum. ?- No specimens collected. Recommendation: ?Likely limited role of repeat EGD if ?rebleed; suggest IR embolization ?attempt as next step if rebleed. ?PPI and ongoing supportive care ?NPO overnight ?Will need oral PPI BID at discharge ?and screening for H.pylori ?Will need repeat EGD in 6-8 weeks to ?confirm healing of ulcer Assessment/Plan: Violet Cowan is a 39 y.o. female with history of alcoholic cirrhosis, medically managed microprolactinoma and LEONA who presents as a transfer from [facility] with concerns of an UGIB. Given her recent EGD which showed a cratered gastric ulcer, this is likely the source. On exam, pt looks HDS therefore will touch base with gastroenterology team re UGIB tomorrow. #UGIB with known gastric ulcer #Decompensated alcoholic cirrhosis MELD-Na score: 27 at 05/06/2020 5:49 AM MELD score: 27 at 05/06/2020 5:49 AM Calculated from: Serum Creatinine: 0.57 mg/dL (Rounded to 1 mg/dL) at 05/06/2020 5:49 AM Serum Sodium: 136 mmol/L at 05/06/2020 5:49 AM Total Bilirubin: 19.5 mg/dL at 05/06/2020 5:49 AM INR(ratio): 2.4 at 05/06/2020 5:49 AM Age: 39 years 4 months -s/p 2 unit pRBC -active T+S -f/u CBC, CMP -continue octreotide gtt 50 mcg/unit, IV pantoprazole 40 mg BID -IV zofran 4m g Q8 prn -continue IV CTX 1 g Q24 x 5 days -consult GI, recs pending -NPO, EGD tomorrow -continue thiamine, folate -will evaluate with a bedside U/S for ascites, possible para # Routine Diet: NPO diet (Give Meds) DVT prophylaxis: SCDs Fluids: s/p 500 cc fluids at OSH Access: 2 Large- bore IVs Dispo: pending course Code: Attempt Cardiopulmonary Resuscitation - Inpatient Maribell Butler MD PGY-3, Internal Medicine 06/21/2020 Blue Team Pager - #[phone] Associated attestation - Felix Carlson MD - 06/21/2020 5:26 PM EST Hospital Medicine Service Attending Documentation Please see Dr. Butler's note for details of the patient history of presentation and data. I have discussed, reviewed and agree with the documented History, Physical findings, Assessment and Plan of care. I have examined the patient myself and personally reviewed all studies. Additions to the history, physical, assessment and plan include the following: Will keep NPO, plan for EGD tomorrow unless develops signs of active bleeding. Continue CTX for SBP prophylaxis, octreotide for now pending EGD results, and IV PPI BID. Trend H/H q8 hours. Will plan for abdominal U/S to check extent of ascites, if large pocket would plan for diagnostic para. Will giveIV Vitamin K challenge. Otherwise LFTs much improved from prior. Felix Carlson MD documented in this encounter Nursing Notes Letty Brumfield RN - 06/22/2020 12:02 PM EST 11:16 Pt arrived to PACU, lethargic but a/o x4. Denies pain. 12:00 Report called to receiving ISCU RN. documented in this encounter Miscellaneous Notes Plan of Care - Dora De Dios RN - 06/23/2020 12:44 PM EST Problem: Patient Care Overview Goal: Plan of Care Review Outcome: Outcome (s) achieved Date Met: 06/23/20 06/22/20 0337 06/23/20 0819 Coping/Psychosocial Plan Of Care Reviewed With -- patient Plan of Care Review Progress no change -- OUTCOME EVALUATION NOTE: OUTCOME SUMMARY: Pt A&Ox4, c/o no pain. VSS on RA. Pt went to US today, team decided there was not enough to tap,going home. Pt IND to the bathroom for BM and urination. Pt remained free from falls. Will continue to monitor. PLAN MOVING FORWARD: Pt d/c to home via private car. Education completed. AVS in hand. IV's out without issues. INDIVIDUALIZED FALL PREVENTION INTERVENTIONS: Patient-specific fall risk factors per assessment: [current deficits]: IV site Assistance [level of assistance required for transfers and ambulation]: IND Supervision [direct monitoring required during toileting and ADLs]: Eyes application trainer soni Surveillance [continuous indirect monitoring]: Call soni in reach, safety maintained, bed in lower locked position Patient-specific fall prevention interventions for sensory deficits provided, if applicable: N/A Goal: Individualization & Mutuality Outcome: Outcome (s) achieved Date Met: 06/23/20 06/21/20172406/22/20336 Individualization Patient Specific Preferences -- Pt likes to have feet tucked under blankets Patient Specific Goals -- eat food Patient Specific Interventions -- Indication for NPO reviewed with pt and plan discussed Mutuality/Individual Preferences What Anxieties, Fears or Concerns Do You Have About Your Health or Care? none -- What Questions Do You Have About Your Health or Care? none -- What Information Would Help Us Give You More Personalized Care? none -- Goal: Fall Prevention-Safe Patient Handling Outcome: Outcome (s) achieved Date Met: 06/23/20 06/22/2033606/22/20213706/23/20 07 Daily Care Interventions Self-Care Promotion BADL personal objects within reach -- -- Logan Fall Risk History of Falling -- -- -- Secondary Diagnosis -- -- -- Ambulatory Aids -- -- -- Intravenous Therapy/Heparin/Saline Lock -- -- -- Gait/Transferring -- -- -- Mental Status -- -- -- Score -- -- -- OTHER Logan Fall Risk -- -- -- Restraint Interventions Safety Promotion/Fall Prevention -- -- -- Positioning Body Position -- -- independent Activity Activity Type -- -- -- Activity Assistance Provided -- -- -- Assistive Device Utilized -- none -- 06/23/20 0819 06/23/20 09 Daily Care Interventions Self-Care Promotion -- -- Logan Fall Risk History of Falling 0 -- Secondary Diagnosis 15 -- Ambulatory Aids 0 -- Intravenous Therapy/Heparin/Saline Lock 20 -- Gait/Transferring 0 -- Mental Status 0 -- Score 35 -- OTHER Logan Fall Risk Med -- Restraint Interventions Safety Promotion/Fall Prevention safety round/check completed -- Positioning Body Position -- -- Activity Activity Type -- activity adjusted per tolerance Activity Assistance Provided -- independent Assistive Device Utilized -- -- Goal: Infection Control Outcome: Outcome (s) achieved Date Met: 06/23/20 06/23/20 0700 06/23/20 0819 Coping Strategies Supportive Measures -- active listening utilized Safety Interventions Isolation Precautions standard precautions maintained -- Infection Prevention rest/sleep promoted -- Goal: Interdisciplinary Rounds/Family Conf Outcome: Outcome (s) achieved Date Met: 06/23/20 06/23/20 1229 Interdisciplinary Rounds/Family Conf Participants patient;nursing Plan of Care - Alivia Mustafa, PT - 06/23/2020 12:05 PM EST Physical Therapy Contact Note PT consult received/chart reviewed. Pt off the floor however spoke with RN who reports pt is currently independent with all ambulation and transfers in her room. Anticipate no further inpatient PT needs. Alivia Mustafa, PT Pager #[phone] Physical Therapy Inpatient Rehabilitation Initial Assessments - Moi Murillo RN - 06/22/2020 9:54 AM EST Office of Care Management Assessment Medical record reviewed. Plan of care and patient status discussed with direct care RN and/or Care Team in multidisciplinary rounds. Screening: Last COVID test: Result Information Date and Time: Resulted: 06/21/2020 19:52 Status: Final result Specimen Information: Nasopharyngeal Swab Symptoms->Surveillance ?? Component Value Flag Ref Range Units Status Rapid SARS-CoV-2 RNA Not Detected Not Detected Final 39 y.o. female here for upper GI bleed Present on Admission: ??? UGIB (upper gastrointestinal bleed) Patient has not been admitted to a hospital within the last 30 days. Patient receiving hospital care under Inpatient status. Admission order reviewed. Primary Insurance on file: [employer] [facility] Secondary Insurance on file: n/a Primary care provider on file: Julieta Odell, TABLEAU ANALYST [phone] Advance Directive on file and Code Status: Attempt Cardiopulmonary Resuscitation - Inpatient. No AD on file. If AD's have not been completed Nawaf Kellyton would be surrogate decision maker per [place] surrogate decision making law. Any patient receiving care at [facility] must abide by [place] law. The hierarchy for surrogate decision making is: (a) Patient???s spouse, or civil union partner or common law spouse unless there is a divorce proceeding, separation agreement, or restraining order limiting that person???s relationship with the patient. (b) Any adult son or daughter of the patient. (c) Either parent of the patient. (d) Any adult brother or sister of the patient. (e) Any adult grandchild of the patient. (f) Any grandparent of the patient. (g) Any adult aunt, uncle, niece, or nephew of the patient. (h) A close friend of the patient. (i) The agent with financial power of litigation attorney or a conservator appointed in accordance with RSA 464-A. (j) The guardian of the patient???s estate. Patient???s Functional Status: Independent Living Situation: Lives w/ and son in 2-story home [phone] [facility] [id number] Supports: Family Assessment: Patient with no apparent RNCM/SW needs at this time. No housing, transportation, insurance, resources concerns identified at this time. Supports in place to achieve a safe post-hospital transition. No identified barriers to accessing necessary care and/or follow-up after discharge. Plan: Patient to d/c to home via family when medically ready. student life dean/[employer] will continue to follow patient???s progress and remain available if situation changes for coordination of care, psychosocial support and/or discharge planning. Moi Murillo, RN Pager [phone] Plan of Care - Karmen Jones RN - 06/22/2020 3:56 AM EST Problem: Patient Care Overview Goal: Plan of Care Review Outcome: Ongoing (Interventions Implemented as Appropriate) 06/22/20 6107 Coping/Psychosocial Plan Of Care Reviewed With patient Plan of Care Review Progress no change OUTCOME EVALUATION NOTE: OUTCOME SUMMARY: Pt A+Ox4. Pt hypotensive 80s/40s around 2200, notified, 500cc NS bolus ordered and administered with good effect. Other VSS. Reports of mild headache that resolved without intervention. Octreotide infusing per orders. SBA to BR to void, urine dark jennifer. Pt resting comfortably between care, bed alarm on, call soni in reach. PLAN MOVING FORWARD: Continue to monitor VS, I/O, and Labs. INDIVIDUALIZED FALL PREVENTION INTERVENTIONS: ?? Patient-specific fall risk factors per assessment: [current deficits]: leads/lines, weakness ?? Assistance [level of assistance required for transfers and ambulation]: SBA ?? Supervision [direct monitoring required during toileting and ADLs]: eyes on ?? Surveillance [continuous indirect monitoring]: bed alarm, purposeful rounding, call soni ?? Patient-specific fall prevention interventions for sensory deficits provided, if applicable: [X] Yes CPG GOAL OUTCOME EVALUATION: Goal: Individualization & Mutuality Outcome: Ongoing (Interventions Implemented as Appropriate) 06/22/20336 Individualization Patient Specific Preferences Pt likes to have feet tucked under blankets Patient Specific Goals eat food Patient Specific Interventions Indication for NPO reviewed with pt and plan discussed Goal: Fall Prevention-Safe Patient Handling Outcome: Ongoing (Interventions Implemented as Appropriate) 06/21/20 1700 06/21/20199906/22/20 020 Daily Care Interventions Self-Care Promotion -- -- -- Logan Fall Risk History of Falling -- 0 -- Secondary Diagnosis -- 15 -- Ambulatory Aids -- 0 -- Intravenous Therapy/Heparin/Saline Lock -- 20 -- Gait/Transferring -- 0 -- Mental Status -- 0 -- Score -- 35 -- OTHER Logan Fall Risk -- Med -- Restraint Interventions Safety Promotion/Fall Prevention -- -- activity supervised;fall prevention program maintained;nonskid shoes/slippers when out of bed;safety round/check completed Positioning Body Position -- -- independent Activity Activity Type ambulated to bathroom -- -- Activity Assistance Provided assistance, 1 person -- -- Assistive Device Utilized none -- -- 06/22/20336 Daily Care Interventions Self-Care Promotion BADL personal objects within reach Logan Fall Risk History of Falling -- Secondary Diagnosis -- Ambulatory Aids -- Intravenous Therapy/Heparin/Saline Lock -- Gait/Transferring -- Mental Status -- Score -- OTHER Logan Fall Risk -- Restraint Interventions Safety Promotion/Fall Prevention -- Positioning Body Position -- Activity Activity Type -- Activity Assistance Provided -- Assistive Device Utilized -- Goal: Infection Control Outcome: Ongoing (Interventions Implemented as Appropriate) 06/22/20 0000 06/22/20336 Coping Strategies Supportive Measures -- active listening utilized;decision-making supported;positive reinforcement provided;verbalization of feelings encouraged Safety Interventions Isolation Precautions standard precautions maintained -- Infection Prevention rest/sleep promoted -- Problem: Pain, Acute (Adult) Goal: Identify Related Risk Factors and Signs and Symptoms Related risk factors and signs and symptoms are identified upon initiation of Human Response Clinical Practice Guideline (CPG) Outcome: Outcome (s) achieved Date Met: 06/22/20 06/22/20336 Pain, Acute Related Risk Factors (Acute Pain) disease process Signs and Symptoms (Acute Pain) verbalization of pain descriptors Goal: Acceptable Pain Control/Comfort Level Patient will demonstrate the desired outcomes by discharge/transition of care. Outcome: Ongoing (Interventions Implemented as Appropriate) 06/22/20336 Pain, Acute (Adult) Acceptable Pain Control/Comfort Level making progress toward outcome Consult Note - Genie Martin - 06/21/2020 4:54 PM EST GASTROENTEROLOGY & HEPATOLOGY CONSULTATION Initial Consult Note Requesting Provider: Gulshan Dockery MD REASON FOR CONSULTATION: hematemesis HISTORY OF PRESENT ILLNESS Violet Cowan is a 39 y.o. year old woman with recent diagnosis of EtOH cirrhosis and EtOH hepatitis, UGIB d/t gastric ulcer 04/11/20 s/p clipping and empiric IR GDA embolization who was transferred from OSH with lightheadedness, nausea and one episode of hematemesis. She was admitted here from the end of Apr to early May, at which point she was transferred to [facility] for inpatient liver transplant evaluation. Since discharge from rehab at the beginning of June, she reports intermittent lightheadedness, especially with standing. She became more lightheaded and nauseated after eating dinner last night. She went to sleep very early and awoke the middle of the night with nausea and felt like she was spinning. She went to the ED and on the way had one episode of emesis with a couple small blood clots and approx 1 tbsp of red blood. No black or bloody stools and no abd pain. She was found there to have SBP 80-90s. Initial Hgb was 8.3, but recheck after receiving 500 cc IVF went down to Hgb 6.8 . She received 2 units of PRBC prior to transfer and was started on octreotide gtt, PPI ggt and rocephin. She was taken off of all her diuretics because she was getting dehydrated and feels that her abd hasa little fluid but not distended and no LE edema. She has not required a paracentesis since her lastone here on 05/06. No fevers or cold symptoms. She is no longer on steroids. She takes her protonix daily. No NSAIDs or ASA. No EtOH since 04/11/20. She lives at home with her and 4 year old. Darion in law has been in the process of work up for living donor liver transplant at [facility]. ROS: 10 systems reviewed and positive for those in HPI, otherwise negative PAST MEDICAL/SURGICAL HISTORY: Past Medical History: Diagnosis Date ??? Cirrhosis, alcoholic ??? UGIB (upper gastrointestinal bleed) gastric ulcer 04/2020 MEDICATIONS ??? folic acid 1 mg Oral Daily ??? multivitamin with minerals 1 tablet Oral Daily ??? thiamine 100 mg Oral Daily ??? pantoprazole 40 mg Intravenous BID ??? sodium chloride 0.9 % (flush) 5 mL Intravenous BID ??? bolus IV fluid Intravenous Once ??? cefTRIAXone 1 g Intravenous Q24H ??? phytonadione, vitamin K (Aqua-Mephyton) IV 10 mg Intravenous Daily ? ? octreotide (SandoSTATIN) (standard ADULT & Pedi greater than 20kg) infusion 50 mcg/hr (06/21/20 1606) sodium chloride 0.9 % (flush), lidocaine, ondansetron OR ondansetron ALLERGIES No Known Allergies SOCIAL HISTORY Social History Socioeconomic History ??? Marital status: Spouse name: Not on file ??? Number of children: Not on file ??? Years of education: Not on file ??? Highest education level: Not on file Occupational History ??? Not on file Social Needs ??? Financial resource strain: Not on file ??? Food insecurity Worry: Not on file Inability: Not on file ??? Transportation needs Medical: Not on file Non-medical: Not on file Tobacco Use ??? Smoking status: Never Smoker ??? Smokeless tobacco: Never Used ??? Tobacco comment: never Substance and Sexual Activity ??? Alcohol use: Not Currently Alcohol/week: 10.0 standard drinks Types: 10 Shots of liquor per week Frequency: 4 or more times a week Drinks per session: 1 or 2 ??? Drug use: Never ??? Sexual activity: Yes Partners: Male control/protection: Other-see comments Comment: none Lifestyle ??? Physical activity Days per week: Not on file Minutes per session: Not on file ??? Stress: Not on file Relationships ??? Social connections Talks on phone: Not on file Gets together: Not on file Attends rastafari service: Not on file Active member of club or organization: Not on file Attends meetings of clubs or organizations: Not on file Relationship status: Not on file ??? Intimate partner violence Fear of current or ex partner: Not on file Emotionally abused: Not on file Physically abused: Not on file Forced sexual activity: Not on file Other Topics Concern ??? Not on file Social History Narrative ??? Not on file FAMILY HISTORY Father of EtOH cirrhosis Vitals: 06/21/20 1552 06/21/20 1600 BP: 106/58 BP Location (NBP): Left arm Patient Position: Lying Pulse: 76 Resp: 13 Temp: 37.2 ??C (99 ??F) TempSrc: Oral SpO2: 100% Weight: 68.5 kg (151 lb 0.2 oz) PHYSICAL EXAM GENERAL: No acute distress, alert and oriented HEENT: AT/NC, +icteric sclera, moist mucous membranes CHEST: CTAB with no w/c/r CARDIAC: RRR. Normal S1, S2, no appreciable murmurs. ABDOMEN: Soft, normoactive bowel sounds, non-tender, non-distended, +mildy bulging flanks EXT: Warm, no edema NEURO: Grossly intact, moves all extremities. SKIN: + jaundice. +spider angiomata LABS: Lab Results Component Value Date Sodium 138 06/21/2020 Potassium 4.8 06/21/2020 Chloride 110 (H) 06/21/2020 CO2 19 (L) 06/21/2020 BUN 10 06/21/2020 Creatinine 0.82 06/21/2020 Glucose Lvl 98 06/21/2020 CBC Lab Results Component Value Date WBC 7.2 06/21/2020 Hemoglobin 9.8 (L) 06/21/2020 Hematocrit 31.2 (L) 06/21/2020 Platelets 175 06/21/2020 LFT's Lab Results Component Value Date Alk Phos 104 06/21/2020 AST 48 (H) 06/21/2020 Albumin 2.9 (L) 06/21/2020 Bili, Direct 5.4 (H) 06/21/2020 Total Bilirubin 9.2 (H) 06/21/2020 ALT 17 06/21/2020 Total Protein 5.7 (L) 06/21/2020 ENDOSCOPY: EGD 04/11/20 Impression: ?- Esophagogastric landmarks ?identified. ?- Spurting gastric ulcer with ?spurting hemorrhage (Patricio Class ?Ia). Clips (MR conditional) were ?placed. ?- Normal examined duodenum. IMPRESSION: Violet Cowan is a 39 y.o. year old woman with recent diagnosis of EtOH cirrhosis and EtOH hepatitis, UGIB d/t gastric ulcer 04/11/20 s/p clipping and empiric IR GDA embolization who was transferred from OSH with lightheadedness, nausea and one episode of hematemesis. She received 2 units of PRBC for Hgb 6.8 at OSH, now with Hgb 9.8. HD stable. She has had no further nausea/vomiting since last night. She has a known history of high risk gastric ulcer (H. Pylori neg) and notes she was taking NSAIDs at that time, which she is no longer. DDx also includes portal hypertensive gastropathy, erosive esophagitis. Less likely varices given recent EGD without varices. Overall she appears to be doing much better than a month ago with significantly downtrended total bilirubin and WBC. She has only mild ascites on exam and is off all diuretics. She has maintained her sobriety and is looking forward thinking about liver transplant. RECOMMENDATIONS: - Maintain 2 large bore IVs - Maintain active T&S - NPO at MO for likely EGD tomorrow - Continue PPI IV BID - Continue CTX 1g IV daily x 5 days - Continue octreotide gtt - Abd US, diagnostic paracentesis if has ascites - Trend H/H qhrs - Daily MELD labs (INR, CMP) - Please don't hesitate to contact us for any questions The plan as outlined above was discussed with Dr. Arreola. The recommendations were discussed with the primary team. Genie Martin MD Gastroenterology PGY-[id number] 06/21/2020 4:54 PM Pager #[phone] Associated attestation - Siddhartha Arreola MD - 06/22/2020 12:10 PM EST ATTENDING ADDENDUM I interviewed and examined Violet Cowan with Dr. Martin on rounds today. I have discussed the case with her and confirm the history and fish physical findings outlined in this note. The assessment and plan were formulated in discussion with me at the time of this encounter, and I agree with them as documented. Please see EGD report. Moderately severe portal gasropathy - otherwise unremarkable. Seems to be doing well overall. Will monitor for symptoms and signs of worsening anemia. Madi Arreola MD [place] [employer] assembler Co-Director, [facility] Section of Gastroenterology [place] [address] documented in this encounter Plan of Treatment Not on filedocumented as of this encounter Procedures Procedure Name Priority Date/Time Associated Diagnosis Comme nts US ABDOMEN LIMITED Routine 06/23/2020 10:21 Resul ts for this AM EST procedure are i n the results section. HEMOGRAM Routine 06/23/2020 4:44 Results for this AM EST procedure are i n the results section. DIFFERENTIAL, Routine 06/23/2020 4:44 Results for this AUTOMATED AM EST procedure are i n the results section. HC CBC,PLT & AUTO Routine 06/23/2020 4:44 DIFF AM EST BASIC METABOLIC PANEL Routine 06/23/2020 4:44 Res ults for this (NON-FASTING) AM EST procedure are in the results section. HC HEMOGLOBIN, BLOOD Routine 06/22/2020 1:58 Resu lts for this PM EST procedure are i n the results section. HC PARTIAL Routine 06/22/2020 1:58 Results for this THROMBOPLASTIN TIME PM EST procedur e are in the results section. HC VENIPUNCTURE Routine 06/22/2020 1:58 Results f or this PM EST procedure are i n the results section. HEPATIC FUNCTION Routine 06/22/2020 1:58 Results for this PANEL PM EST procedure are i n the results section. SURGICAL PATHOLOGY Routine 06/22/2020 11:06 Resul ts for this REPORT AM EST procedure are i n the results section. SPECIMEN TO PATHOLOGY Routine 06/22/2020 11:06 Re sults for this AM EST procedure are i n the results section. EGD WITH BIOPSY (WRVU 06/22/2020 10:39 GI bleed 2.49) AM EST UPPER GI ENDOSCOPY Routine 06/22/2020 10:19 Resul ts for this AM EST procedure are i n the results section. HEMOGRAM Routine 06/22/2020 1:03 Results for this AM EST procedure are i n the results section. DIFFERENTIAL, Routine 06/22/2020 1:03 Results for this AUTOMATED AM EST procedure are i n the results section. HC VENIPUNCTURE Routine 06/22/2020 1:03 AM EST BASIC METABOLIC PANEL Routine 06/22/2020 1:03 Res ults for this (NON-FASTING) AM EST procedure are in the results section. HEMOGRAM STAT 06/21/2020 10:19 Results for this PM EST procedure are i n the results section. DIFFERENTIAL, STAT 06/21/2020 10:19 Results fo r this AUTOMATED PM EST procedure are i n the results section. HC CBC,PLT & AUTO STAT 06/21/2020 10:19 DIFF PM EST RAPID COVID-19 PCR Routine 06/21/2020 5:20 Result s for this ([facility]/APD/[facility]) PM EST procedure are in the results section. EKG 12-LEAD Routine 06/21/2020 4:43 Gastrointestinal Results for this PM EST hemorrhage, unspecified proc edure are in gastrointestinal the results hemorrhage type section. POCT GLUCOSE Routine 06/21/2020 3:45 Results for this PM EST procedure are i n the results section. ABORH RECHECK STATUS STAT 06/21/2020 3:40 Resu lts for this PM EST procedure are i n the results section. HEMOGRAM STAT 06/21/2020 3:40 Results for this PM EST procedure are i n the results section. DIFFERENTIAL, STAT 06/21/2020 3:40 Results for this AUTOMATED PM EST procedure are i n the results section. ABO/RH TYPING STAT 06/21/2020 3:40 Results for this PM EST procedure are i n the results section. HC PARTIAL STAT 06/21/2020 3:40 Results for this THROMBOPLASTIN TIME PM EST procedur e are in the results section. HC PROTHROMBIN TIME STAT 06/21/2020 3:40 Resul ts for this PM EST procedure are i n the results section. HC CBC,PLT & AUTO STAT 06/21/2020 3:40 DIFF PM EST ANTIBODY SCREEN STAT 06/21/2020 3:40 Results f or this PM EST procedure are i n the results section. HC ABO-MICROTITER STAT 06/21/2020 3:40 PM EST HC PHOSPHORUS, SERUM STAT 06/21/2020 3:40 Resu lts for this PM EST procedure are i n the results section. HC MAGNESIUM, SERUM STAT 06/21/2020 3:40 Resul ts for this PM EST procedure are i n the results section. HEPATIC FUNCTION STAT 06/21/2020 3:40 Results for this PANEL PM EST procedure are i n the results section. BASIC METABOLIC PANEL STAT 06/21/2020 3:40 Res ults for this (NON-FASTING) PM EST procedure are in the results section. documented in this encounter Results US Abdomen Limited (06/23/2020 10:21 AM EST) Anatomical Region Laterality Modality Abdomen Ultrasound Specimen (Source) Anatomical Collection Method Collection Time Re ceived Time Location / / Volume Laterality 06/23/2020 10:23 AM EST Impressions 06/23/2020 11:03 AM EST ?? Small amount of ascites, predominant ly perihepatic, where the fluid depth is approximately 17 mm Thank you for letting us participate in the care of this patient. For questions regarding this report, please contact raissa campoverde number below. Electronically signed by: Cici Carbone MD, [facility] [place] ([phone]), at 10:56 AM ? Cici Carbone, Staff Physician Electronically Signed Final Report ?? 11:03 am Narrative 06/23/2020 11:03 AM EST Abdominal ? (Signed Final 06/23/2020 11:03 am) PATIENT INFO: ID #: ? [id number] ?: ??[birth year] (39 yrs)(F) Name: ? VIOLET COWAN ? Visit Date: 06/23/2020 10:23 am PERFORMED BY: Performed By: ? Mayra Davis RDMS Attending: ?Raf HERNANDEZ, Cici Fan . Referred By: ?GULSHAN DOCKERY Location: ? [place] SERVICE(S) PROVIDED: ??UABDLIM - Abdominal Limited Survey Si ngle ? [id number] ??Organ or Quadrant - [id number] INDICATIONS: ??patient with liver cirrhosis; would b enefit from ??diagnostic paracentesis. Please asses s if ??enough ascitic fluid for procedure (a t ??minimum need 3cm by 3cm pocket) COMPARISON: Prior US: 04/22/20 FLUID COLLECTIONS: Small amount of ascites. Procedure Note Cici Carbone MD - 06/23/2020Formattin g of this note might be different from the original. Abdominal (Signed Final 06/23/2020 11:0 3 am) PATIENT INFO: ID #: [id number] : [id number] (39 y rs)(F) Name: VIOLET COWAN Visit Date: 10:23 am PERFORMED BY: Performed By: Mayra Davis RDMS Attending: Cici Carbone MD Referred By: GULSHAN DOCKERY Location: [place] SERVICE(S) PROVIDED: UABDLIM - Abdominal Limited Survey [facility] [id number] Organ or Quadrant - [id number] INDICATIONS: patient with liver cirrhosis; would rian efit from diagnostic paracentesis. Please assess if enough ascitic fluid for procedure (at minimum need 3cm by 3cm pocket) COMPARISON: Prior US: 04/22/20 FLUID COLLECTIONS: Small amount of ascites. IMPRESSION Small amount of ascites, predominantly perihepatic, where the fluid depth is approximately 17 mm Thank you for letting us participate in the care of this patient. For questions regarding this report, please contact t he number below. Electronically signed by: Cici Carbone MD, [facility] ([phone]), at 10:56 BETINA Carbone, Staff Physician Electronically Signed Final Report 06/23 11:03 am Gulshan Dockery MD IMG US GEN ORDERABLES (ABNORMAL) Differential, Automated (06/23/2020 4:44 AM EST) [facility] Method Time Signature Neutrophils % 85.8 % [facility] Neutr Abs (ANC) 6.83 (H) 1.70 - [facility] 6.10 [facility] x10(3)/[facility] L LABORATORY Lymphocytes % 9.2 % [facility] Lymphocytes Abs 0.7 (L) 0.9 - 3.2 [facility] x10(3)/[facility] LABORATORY Monocytes % 4.4 % [facility] Monocyte Abs 0.4 0.3 - 0.9 [facility] x10(3)/[facility] LABORATORY Eosinophils % 0.0 % [facility] Eosinophils Abs 0.0 0.0 - 0.4 [facility] x10(3)/[facility] LABORATORY Basophils % 0.1 % [facility] Basophils Abs 0.0 0.0 - 0.1 [facility] x10(3)/[facility] LABORATORY Immature Gran % 0.50 % [facility] Comment: Immature granulocytes(IG's)percentage an d absolute count will include metamyelocytes, myelocytes, and promyelo cytes. Blood smears from CBCs yielding IG's will be scanned manually for concor dance. If this scan disagrees with the automated IG or if promyelocytes are not ed, a manual differential will be performed. Josey Gran Abs 0.04 0.00 - 0.04 x10(3)/[facility] LABORATORY Specimen Anatomical Collection Method Collection Time Receive d Time (Source) Location / / Volume Laterality Blood specimen 06/23/2020 4:44 AM 020 5:09 (specimen) EST AM EST Resulting Agency Comment Spec In Lab Charli Arriola MD HEMATOLOGY ORDERABLES Performing Organization Address City/State/[place] [address] (ABNORMAL) Hemogram (06/23/2020 4:44 AM EST) Analysis Performed At Patho logist Time Signature WBC 8.0 4.0 - 9.[facility] LABORATORY RBC 3.68 (L) 4.00 - [place] [facility] 5.21 [facility] x10(6)/[facility] LABORATORY Hemoglobin 9.2 (L) 11.7 [facility] 15.5 gm/dL [facility] Hematocrit 30.5 (L) 35.7 - [facility] 45.8 % [facility] MCV 82.9 82.6 [facility] 94.4 [facility] LABORATORY MCH 25.0 (L) 27.1 - [place] 32.0 pg [facility] MCHC 30.2 (L) 31.7 - [facility] 35.0 gm/dL [facility] Platelets 187 145 - 357 [facility] x10(3)/[facility] LABORATORY RDWSD 51.4 (H) 37.0 - [facility] 46.0 [facility] LABORATORY RDWCV 16.9 (H) 11.5 - [facility] 14.1 % [facility] LABORATORY MPV 9.8 7.6 - 12.9 [facility] LABORATORY nRBC % Auto 0.0 % [facility] nRBC Abs Auto 0.000 0.000 - [facility] 0.000 [facility] x10(3)/[facility] LABORATORY Specimen Anatomical Collection Method Collection Time Receive d Time (Source) Location / / Volume Laterality Blood specimen 06/23/2020 4:44 AM 020 5:09 (specimen) EST AM EST Resulting Agency Comment Spec In Lab Charli Arriola MD HEMATOLOGY ORDERABLES Performing Organization Address City/State/[place] [address] (ABNORMAL) Basic Metabolic Panel (non-fasting) (06/23/2020 4:44 AM EST) P athologist Signature Glucose Lvl 156 65 - 199 [facility] mg/dL [facility] Comment: Diabetes: >=200 mg/dL plus symp toms BUN 10 8 - 18 mg/dL [facility] Creatinine 0.83 0.70 - 1.20 mg/dL [facility] Sodium 138 135 - 145 mmol/L [facility] Potassium 4.3 3.5 - 5.0 mmol/L [facility] Comment: Please note: ??Patients with WBC >100,00 0 may have falsely elevated Potassium levels. ??For accurate Potassium quantif ication in these patients send serum separator tube (gold top) for subsequent determinations. ??Contact the Clinical Chemistry Laboratory if there are any qu estions. Chloride 114 (H) 98 - 107 mmol/L [facility] CO2 16 (L) 22 - 31 mmol/L [facility] Anion Gap 8 5 - 15 mmol/L [facility] LAB[facility]ORY Calcium 8.5 8.5 - 10.5 mg/dL [facility] Estimated GFR 88 >=60 mL/min/1.73 m?? [facility] Comment: The eGFR was calculated using the CKD-EP I equation. As with all creatinine based estimates of kidney function, eGFR values calculated with the CKD-EPI equation are not accurate in patients wi th acute kidney failure, extremes of body mass or the acutely ill. http://[employer] (acquired by [employer] in 2014)/[facility] eGFR 102 >=60 mL/min/1.73 m?? [facility] Comment: The eGFR was calculated using the CKD-EP I equation. As with all creatinine based estimates of kidney function, eGFR values calculated with the CKD-EPI equation are not accurate in patients wi th acute kidney failure, extremes of body mass or the acutely ill. http://[employer] (acquired by [employer] in 2014)/[facility] Specimen Anatomical Collection Method Collection Time Receive d Time (Source) Location / / Volume Laterality Blood specimen 06/23/2020 4:44 AM 020 5:09 (specimen) EST AM EST Resulting Agency Comment Spec In Lab Gulshan Dockery MD CHEMISTRY ORDERABLES Performing Organization Address City/State/[place] [address] (ABNORMAL) Hepatic Function Panel (06/22/2020 1:58 PM EST) athologist Signature Total Protein 5.9 (L) 6.1 - 8.0 [facility] Albumin 2.9 (L) 3.2 - 5.2 [facility] gm/dL [facility] AST 54 (H) 0 - 30 [facility] unit/L [facility] ALT 18 0 - 30 [facility] [place] unit/L [facility] Alk Phos 106 (H) 35 - 105 [facility] [place] unit/L [facility] Total 8.5 (H) 0.2 - 1.3 [place] Bilirubin mg/dL [facility] Bili, Direct 5.5 (H) 0.0 - 0.3 [facility] [facility]OR[facility] Specimen Anatomical Collection Method Collection Time Receive d Time (Source) Location / / Volume Laterality Blood specimen 06/22/2020 1:58 PM 020 2:04 (specimen) EST PM EST Resulting Agency Comment Spec In Lab Gulshan Dockery MD CHEMISTRY ORDERABLES Performing Organization Address City/State/ZIP Code Phon e Number [address] (ABNORMAL) Hemoglobin and Hematocrit, blood (06/22/2020 1:58 PM EST) athologist [facility] Hemoglobin 10.3 (L) 11.7 - [facility].5 gm/dL [facility] Hematocrit 32.7 (L) 35.7 - [facility] 45.8 % [facility] Specimen Anatomical Collection Method Collection Time Receive d Time (Source) Location / / Volume Laterality Blood specimen 06/22/2020 1:58 PM 020 2:04 (specimen) EST PM EST Resulting Agency Comment Spec In Lab Gulshan Dockery MD HEMATOLOGY ORDERABLES Performing Organization Address City/State/[place] [address] (ABNORMAL) APTT (06/22/2020 1:58 PM EST) athologist [facility] PTT 42 (H) 25 - 37 sec [facility] Comment: The PTT is NOT appropriate for heparin m onitoring. Use the Anti-Xa level for heparin monitoring (HEP UFH) or LMWH mon itoring (HEP LMW). A PTT less than 37 seconds generally indicates adequate hem ostasis. Specimen Anatomical Collection Method Collection Time Receive d Time (Source) Location / / Volume Laterality Blood specimen 06/22/2020 1:58 PM 020 2:04 (specimen) EST PM EST Resulting Agency Comment Spec In Lab Gulshan Dockery MD HEMATOLOGY ORDERABLES Performing Organization Address [facility] Phon e Number [address] (ABNORMAL) Prothrombin Time (06/22/2020 1:58 PM EST) P athologist Signature PT 17.6 (H) 9.4 - 12.5 [facility] LABORATORY INR 1.5 [facility] Comment: An INR <2.0 indicates adequate procoagul ant activity for hemostasis in most patients without underlying bleeding dis orders, though the INR may not adequately reflect hemostatic capacity i n patients with liver disease and synthetic impairment. The recommended ta rget INR range for therapeutic anticoagulation is 2.0 ? 3.0 for most applications, though lower and higher ranges may be appropriate depending on c linical circumstances. Specimen Anatomical Collection Method Collection Time Receive d Time (Source) Location / / Volume Laterality Blood specimen 06/22/2020 1:58 PM 020 2:04 (specimen) EST PM EST Resulting Agency Comment Spec In Lab Gulshan Dockery MD HEMATOLOGY ORDERABLES Performing Organization Address City/[facility] [place] [address] Surgical Pathology Report (06/22/2020 11:06 AM EST) Component Value Ref Test Analysis Performed At Patholo gist Range Method Time Signature Surgical [id number] ? Location: 1EST; 0133; [facility] Report The signing pathologist has (i) examined the relevant preparation(s) for the [facility] specimen(s) and (ii) rendered or confirmed the diagnosis(es) . HOSPITAL LABORATORY . ? Addendum ADDENDUM DISCUSSION Immunostains for H. pylori are negative. Immunohistochemistry Studies: Formalin-fixed, paraffin-emb edded tissue sections are studied using the polymer technique with appropriate positive and negative controls. ?These IHC studies provide the pathologist wit h adjunctive diagnostic information. Antibody specificity has been verified by testin g antibodies on a series of in-house tissues with known immunohistochemical perform ance characteristics. The clinical interpretation of any antibody positive stain ing or its absence is evaluated within the context of clinical presentation, morp hology, histopathological criteria and other diagnostic tests. Block ? Antibody ?Result (Positive /Negative) A1,A2 ?h. pylori ?negative Electronically signed by: ??Jessica Gillespie MD Verified: ??07/03/2020 ?Pathologist Performed at: ??-[facility] [place] [place], [place], [place] ?Surgic al Pathology DIAGNOSIS Stomach, ??biopsy: Gastric antral and fundic gl and mucosa with focal active inflammation, foveolar hyperplasia and nonspecific reactive epithelial changes. A fragment of fundic gland mucosa with features of fundic gl and polyp. Electronically signed by: ??Jessica Gillespie MD Verified: ??07/02/2020 ?Pathologist Performed at: ??-[facility] [place] [place], [place], [place] SPECIMEN(S) SUBMITTED A - gastric bx's. r/o h-pylori, biopsy (Multiple) CLINICAL INFORMATION 39 yo with hematemesis, Hx of cirrhosis SPECIMEN PROCESSING A - Labeled/Fixative: Gastric BX's. r/o H-pylori, formalin. Quantity/Size: Seven, 0.2-0.5 cm. Tissue Description: Soft, herndon tissues. Sections/Processing: Submitted en toto ??in 2 cassettes labeled A1-A2. ??hmg Specimen (Source) Anatomical Collection Method Collection Time Re ceived Time Location / / Volume Laterality 06/22/2020 11:06 AM EST Siddhartha Arreola MD PATHOLOGY/CYTOLOGY ORDERABLE S Performing Organization Address City/State/ZIP Code Phon e Number [address] Specimen to Pathology (06/22/2020 11:06 AM EST) Specimen Anatomical Collection Method Collection Time Receive d Time (Source) Location / / Volume Laterality AP Specimen 06/22/2020 11:06 06/22/2020 AM EST 11:06 AM EST Narrative [facility] ORY - 06/22/2020 11:06 AM EST Specimen requisition ordered. ??Separate Pathology report to follow Gulshan Dockery MD PATHOLOGY/CYTOLOGY ORDERABLE S Performing Organization Address City/State/[place] [address] UPPER GI ENDOSCOPY (06/22/2020 10:19 AM EST) Component Value Ref Test Analysis Performed At [facility] Range Method Time Signature UPPER GI [facility] ENDOSCOPY Endoscopy Procedure Date: 06/22/2020 10:19 AM ? Patient Name: Violet Cowan ? Date of : 1980 ? Age: 39 ? Order #: [id number] ? Instrument Name: [id number] ? Procedure: ? Upper GI endoscopy Indications: ? Hematemesis Providers: ? LHarry Arreola MD, Genie Boyd ? Javid Martin, ARANZA, Vanessa ? Doc David, Inventory Specialist Manager Referring : ? Medicines: ? Monitored Anesthesia Care Complications: ? No immediate complications. Procedure: ? Pre-Anesthesia Assessment: ? - Prior to the procedure, a H istory ? and Physical was performed, a nd ? patient medications, allergie s and ? sensitivities were reviewed. The ? patient's tolerance of previo us ? anesthesia was reviewed. ? - The risks and benefits of t he ? procedure and the sedation op tions ? and risks were discussed with the ? patient. All questions were a nswered ? and informed consent was obta ined. ? - Patient identification and proposed ? procedure were verified prior to the ? procedure by the physician, t nirali nurse ? and the anesthesiologist. The ? procedure was verified in the ? endoscopy suite. ? The procedure, indications, b enefits, ? risks and alternatives were e xplained ? to the patient. Specifically ? discussed were potential ? complications including, but not ? limited to, bleeding, perfora tion, ? infection, missing a cancer, and ? adverse medication reactions. The ? End[facility] the ? mouth, and [facility] ? of duodenum. The patient tole rated ? the procedure well. The upper GI ? endoscopy was accomplished [facility] ? difficulty. The patient genaro ated the ? procedure well. ? Findings: ? Localized erythematous, congested and edematous ? nodular mucosa without bleeding with punctate areas ? of exudate was found in the gastric antrum, suspect ? this is reactive secondary to prior ulcer. Biopsies ? were taken with a cold forceps for histology and H. ? pylori. ? Moderate portal hypertensive gastropathy without ? bleeding was found in the entire examined stomach. ? Normal retroflexion without signs of gastric varices. ? The examined esophagus was normal without evidence ? esophageal varices. ? The examined duodenum was normal. ? No blood was seen in the stomach or duodenum during ? this exam. ? Moderate Sedation: ? Not applicable - See Anesthesia documentation Impression: ?- Erythematous, congestive and ? edematous nodular mucosa in t he ? antrum, suspect this is react lópez. ? Biopsied. ? - Portal hypertensive gastrop athy. ? Suspect etiology of the bleed ing was ? either PHG or reactive change s. ? - Normal esophagus. ? - Normal examined duodenum. Recommendation: ?- [facility] ? ongoing care. ? - Advance diet as tolerated. ? - Follow up gastric biopsies ? - Trend H/H ? - OK to stop octreotide ? - Continue CTX x total 5 days ? - Continue protonix 40 mg BID po ? Procedure Code(s): ?? --- Professional --- ? 16714, Esophagogastroduodenos copy, ? flexible, transoral; with bio psy, ? single or multiple ? --- Technical --- ? 11839, Esophagogastroduodenos copy, ? flexible, transoral; with bio psy, ? single or multiple CPT copyright 2019 [employer]. All rights reserved. The codes documented in this report are preliminary and upon tubing machine operator review may be revised to meet current compliance requirements. Attending Participation: ? I was present and participated during the entire ? procedure from insertion to removal of the endoscope. ? L. Juventino Arreola MD 06/22/2020 11:17:59 AM Number of Addenda: 0 Note Initiated On: 06/22/2020 10:19 AM Specimen (Source) Anatomical Collection Method Collection Time Re ceived Time Location / / Volume Laterality 06/22/2020 10:19 AM EST Unknown GENERAL SURGICAL ORDERABLES Performing Organization Address City/State/ZIP Code Phon e Number [facility] Differential, Automated (06/22/2020 1:03 AM EST) P athologist Signature Neutrophils % 51.6 % [facility]ORY Neutr Abs (ANC) 3.13 1.70 - [facility] 6.10 [facility] x10(3)/[facility] LABORATORY Lymphocytes % 36.5 % [facility] Lymphocytes Abs 2.2 0.9 - 3.2 [facility] x10(3)/[facility] LABORATORY Monocytes % 8.6 % [facility] Monocyte Abs 0.5 0.3 - 0.9 [facility] x10(3)/[facility] LABORATORY Eosinophils % 2.0 % [facility] Eosinophils Abs 0.1 0.0 - 0.4 [facility] x10(3)/[facility] LABORATORY Basophils % 1.0 % [facility] Basophils Abs 0.1 0.0 - 0.1 [facility] x10(3)/[facility] LABORATORY Immature Gran % 0.30 % [facility] Comment: Immature granulocytes(IG's)percentage an d absolute count will include metamyelocytes, myelocytes, and promyelo cytes. Blood smears from CBCs yielding IG's will be scanned manually for concor dance. If this scan disagrees with the automated IG or if promyelocytes are not ed, a manual differential will be performed. Josey Gran Abs 0.02 0.00 - 0.04 x10(3)/[facility] LABORATORY Specimen Anatomical Collection Method Collection Time Receive d Time (Source) Location / / Volume Laterality Blood specimen 06/22/2020 1:03 AM 020 1:13 (specimen) EST AM EST Resulting Agency Comment Spec In Lab Maribell Butler MD HEMATOLOGY ORDERABLES Performing Organization Address City/State/[place] [address] (ABNORMAL) Hemogram (06/22/2020 1:03 AM EST) Analysis Performed At Patho logist Time Signature WBC 6.1 4.0 - 9.5 [facility] x10(3)/[facility] LABORATORY RBC 3.55 (L) 4.00 - [facility] 5.21 [facility] x10(6)/[facility] LABORATORY Hemoglobin 9.1 (L) 11.7 [facility] 15.5 gm/dL [facility] Hematocrit 29.3 (L) 35.7 - [facility] 45.8 % [facility] MCV 82.5 (L) 82.6 [facility]4 [facility] LABORATORY MCH 25.6 (L) 27.1 - [facility] 32.0 pg [facility] LABORATORY MCHC 31.1 (L) 31.7 - [facility] gm/dL [facility] Platelets 171 145 - 357 [facility] x10(3)/[facility] LABORATORY RDWSD 49.7 (H) 37.0 - [facility] 46.0 [facility] LABORATORY RDWCV 16.6 (H) 11.5 - [facility] 14.1 % [facility] LABORATORY MPV 10.0 7.6 - 12.9 [facility] LABORATORY nRBC % Auto 0.0 % [facility] LABORATORY nRBC Abs Auto 0.000 0.000 - [facility] 0.000 [facility] x10(3)/[facility] LABORATORY Specimen Anatomical Collection Method Collection Time Receive d Time (Source) Location / / Volume Laterality Blood specimen 06/22/2020 1:03 AM 020 1:13 (specimen) EST AM EST Resulting Agency Comment Spec In Lab Maribell Butler MD HEMATOLOGY ORDERABLES Performing Organization Address City/State/[place] [address] (ABNORMAL) Basic Metabolic Panel (non-fasting) (06/22/2020 1:03 AM EST) P athologist Signature Glucose Lvl 155 65 - 199 [facility] mg/dL [facility] Comment: Diabetes: >=200 mg/dL plus symp toms BUN 11 8 - 18 mg/dL [facility] LABORATORY Creatinine 0.91 0.70 - 1.20 mg/dL [facility] LABORATORY Sodium 136 135 - 145 mmol/L [facility] LABORATORY Potassium 4.3 3.5 - 5.0 mmol/L [facility] LABORATORY Comment: Please note: ??Patients with WBC >100,00 0 may have falsely elevated Potassium levels. ??For accurate Potassium quantif ication in these patients send serum separator tube (gold top) for subsequent determinations. ??Contact the Clinical Chemistry Laboratory if there are any qu estions. Chloride 111 (H) 98 - 107 mmol/L [facility] CO2 18 (L) 22 - 31 mmol/L [facility] Anion Gap 7 5 - 15 mmol/L [facility] LABORATORY Calcium 8.2 (L) 8.5 - 10.5 mg/dL [facility] LABORATORY Estimated GFR 78 >=60 mL/min/1.73 m?? [facility] Comment: The eGFR was calculated using the CKD-EP I equation. As with all creatinine based estimates of kidney function, eGFR values calculated with the CKD-EPI equation are not accurate in patients wi th acute kidney failure, extremes of body mass or the acutely ill. http://[employer] (acquired by [employer] in 2014)/[facility] eGFR 91 >=60 mL/min/1.73 m?? [facility] Comment: The eGFR was calculated using the CKD-EP I equation. As with all creatinine based estimates of kidney function, eGFR values calculated with the CKD-EPI equation are not accurate in patients wi th acute kidney failure, extremes of body mass or the acutely ill. http://[employer] (acquired by [employer] in 2014)/[facility] Specimen Anatomical Collection Method Collection Time Receive d Time (Source) Location / / Volume Laterality Blood specimen 06/22/2020 1:03 AM 020 1:13 (specimen) EST AM EST Resulting Agency Comment Spec In Lab Gulshan Dockery MD CHEMISTRY ORDERABLES Performing Organization Address City/State/[place] [address] Differential, Automated (06/21/2020 10:19 PM EST) P athologist Signature Neutrophils % 54.8 % [facility]ORY Neutr Abs (ANC) 3.42 1.70 - [facility] 6.10 [facility] x10(3)/[facility] LABORATORY Lymphocytes % 33.8 % [facility] Lymphocytes Abs 2.1 0.9 - 3.2 [facility] x10(3)/[facility] LABORATORY Monocytes % 8.8 % [facility] Monocyte Abs 0.6 0.3 - 0.9 [facility] x10(3)/[facility] LABORATORY Eosinophils % 1.3 % [facility] Eosinophils Abs 0.1 0.0 - 0.4 [facility] x10(3)/[facility] LABORATORY Basophils % 1.0 % [facility] Basophils Abs 0.1 0.0 - 0.1 [facility] x10(3)/[facility] LABORATORY Immature Gran % 0.30 % [facility] Comment: Immature granulocytes(IG's)percentage an d absolute count will include metamyelocytes, myelocytes, and promyelo cytes. Blood smears from CBCs yielding IG's will be scanned manually for concor dance. If this scan disagrees with the automated IG or if promyelocytes are not ed, a manual differential will be performed. Josey Gran Abs 0.02 0.00 - 0.04 x10(3)/[facility] MAR Y [facility] LABORATORY Specimen Anatomical Collection Method Collection Time Receive d Time (Source) Location / / Volume Laterality Blood specimen 06/21/2020 10:19 0 (specimen) PM EST 10:23 PM EST Resulting Agency Comment Spec In Lab Maribell Butler MD HEMATOLOGY ORDERABLES Performing Organization Address City/State/[place] [address] (ABNORMAL) Hemogram (06/21/2020 10:19 PM EST) Analysis Performed At Patho logist Time Signature WBC 6.2 4.0 - 9.5 [facility] x10(3)/[facility] LABORATORY RBC 3.67 (L) 4.00 - [facility] 5.21 [facility] x10(6)/[facility] LABORATORY Hemoglobin 9.5 (L) 11.7 [facility] gm/dL [facility] Hematocrit 30.1 (L) 35.7 - [facility] 45.8 % [facility] MCV 82.0 (L) 82.6 - [facility] 94.4 [facility] LABORATORY MCH 25.9 (L) 27.1 [facility] 32.0 pg [facility] MCHC 31.6 (L) 31.7 - [facility] gm/dL [facility] Platelets 170 145 - 357 [facility] x10(3)/[facility] LABORATORY RDWSD 49.5 (H) 37.0 [facility] 46.0 [facility] LABORATORY RDWCV 16.5 (H) 11.5 - [facility] 14.1 % [facility] LABORATORY MPV 9.6 7.6 - 12.9 [facility] LABORATORY nRBC % Auto 0.0 % [facility] nRBC Abs Auto 0.000 0.000 - [facility] 0.000 [facility] x10(3)/[facility] LABORATORY Specimen Anatomical Collection Method Collection Time Receive d Time (Source) Location / / Volume Laterality Blood specimen 06/21/2020 10:19 0 (specimen) PM EST 10:23 PM EST Resulting Agency Comment Spec In Lab Maribell Butler MD HEMATOLOGY ORDERABLES Performing Organization Address City/State/[place] [address] COVID-19 PCR (06/21/2020 5:20 PM EST) [facility] Method Time Signature SARS-CoV-2 Not Detected Not Detected [facility] RNA PCR [facility] LABORATORY Comment: This result should be interpreted in com bination with the clinical observations, patient history and epidem iological information. For testing of asymptomatic individuals, assay performa nce characteristics and clinical utility have not been evaluated. Testing for SARS-CoV-2 (Severe acute respiratory syndrome coronavirus 2, form erly known as 2019 novel coronavirus or 2019-nCoV) to aid in the diagnosis of CO VID-19 is performed using the Simplexa COVID-19 Direct Assay by [employer] as authorized by the FDA issued Emergency Use Authorization (EUA). This assay is intended for In-vitro Diagnostic (IVD) use with nasopharyngeal swabs collected from individuals meeting the CDC criteria for testing. e assay is performed based on the instructions for use and additional guid ance provided by the FDA. Testing is performed in the Microbiology Laboratory within the Department of Pathology and Laboratory Medicine at [facility], certified under the Clinical Laboratory Improvement Amendmen ts of 1988 (CLIA), 42 U.S.C. section 263a, to perform high complexity tests. Assay performance has been verified according to clinical laboratory regulat ory requirements. Test results are provided above. A resul t of Not Detected indicates that the viral RNA target is not present but does not preclude SARS-CoV-2 infection. False negative results may occur if a sp ecimen is improperly collected, transported or handled; if amplification inhibitors are present; or if inadequate numbers of viral particles ar e present in the specimen. A result of Detected suggests a current or recent infection and the patient is presumed to be infected. Positive and negative pr edictive values for this test are highly dependent on disease prevalence. A result of Invalid indicates the inability to conclusively determine the presence or absence of SARS-CoV-2 RNA in the sample which can be due to a vari ety of factors. Recollection is recommended in the case of an invalid re sult. CDC COVID-19 criteria for testing on hum an specimens and clinical management guidance information are available at e CDC Coronavirus Disease 2019 (COVID-19) webpage under Information fo r Healthcare Professionals (https://www.cdc.gov/coronavirus/2019-nc ov/hcp/index.html). 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 Specimen (Source) Anatomical Collection Method Collection Time Re ceived Time Location / / Volume Laterality Nasopharyngeal swab 06/21/2020 5:20 06/21 (specimen) PM EST 5:53 PM EST Comment: Symptoms->Surveillance Resulting Agency Comment Spec In Lab Felix Carlson MD MICROBIOLOGY - GENERAL ORDER MARK Performing Organization Address City/State/[place] [address] EKG 12 Lead (06/21/2020 4:43 PM EST) [facility] Method Time Signature Ventricular rate 74 BPM MUSE SYSTEM Atrial Rate 74 BPM MUSE SYSTEM P-R Interval 136 ms MUSE SYSTEM QRS Duration 72 ms MUSE SYSTEM Q-T Interval 420 ms MUSE SYSTEM QTC Calculated 466 ms MUSE SYSTEM (Bezet) Calculated P [place] -4 degrees MUSE SYSTEM Calculated R [place] 68 degrees MUSE SYSTEM Calculated T [place] 15 degrees MUSE SYSTEM INTERPRETATION Normal sinus rhythm MUSE SYSTEM Low voltage QRS Borderline ECG When compared with ECG of 19-APR-2020 06:37, Minimal criteria for Anterior infarct are no longer Present Confirmed by MD Solange, Vero Esparza ([id number]) on 06/23/2020 7:45 :11 AM Specimen Anatomical Collection Method Collection Time Receive d Time (Source) Location / / Volume Laterality 06/21/2020 4:43 PM 0 7:45 EST AM EST Gulshan Dockery MD ECG ORDERABLES Performing Organization Address City/[facility]/ZIP Code Phon e Number MUSE SYSTEM POCT Glucose (06/21/2020 3:45 PM EST) athologist Signature POC Glucose 92 65 - 199 [facility] mg/dL [facility] Comment: Supplemental ranges: <140 mg/dL before meals <180 mg/dL all other times of the day Specimen Anatomical Collection Method Collection Time Receive d Time (Source) Location / / Volume Laterality Blood specimen 06/21/2020 3:45 PM 020 3:45 (specimen) EST PM EST Gulshan Dockery MD POINT OF CARE TEST ORDERABLE S Performing Organization Address City/State/[place] [address] ABORH Recheck Status (06/21/2020 3:40 PM EST) [facility] Method Time Signature ABORH Type Completed [facility] LABORATORY Specimen Anatomical Collection Method Collection Time Receive d Time (Source) Location / / Volume Laterality Blood specimen 06/21/2020 3:40 PM 020 4:13 (specimen) EST PM EST Resulting Agency Comment Spec In Lab Maribell Butler MD BLOOD BANK ORDERABLES Performing Organization Address City/[facility]/ZIP Code Phon e Number [address] Antibody screen (06/21/2020 3:40 PM EST) [facility] gist Method Time Signature Ab Screen Negative [facility] LABORATORY Expires at 06/24/2020 [facility] [id number] on: [facility] LABORATORY Specimen Anatomical Collection Method Collection Time Receive d Time (Source) Location / / Volume Laterality Blood specimen 06/21/2020 3:40 PM 020 4:13 (specimen) EST PM EST Resulting Agency Comment Spec In Lab Maribell Butler MD BLOOD BANK ORDERABLES Performing Organization Address City/[facility]/ZIP Code Phon e Number [address] ABO/Rh Typing (06/21/2020 3:40 PM EST) athologist Signature ABORh Type A Pos [facility] LABORATORY Specimen Anatomical Collection Method Collection Time Receive d Time (Source) Location / / Volume Laterality Blood specimen 06/21/2020 3:40 PM 020 4:13 (specimen) EST PM EST Resulting Agency Comment Spec In Lab Maribell Butler MD BLOOD BANK ORDERABLES Performing Organization Address City/[facility]/ZIP Code Phon e Number [address] Differential, Automated (06/21/2020 3:40 PM EST) P athologist Signature Neutrophils % 52.5 % [facility] LABORATORY Neutr Abs (ANC) 3.77 1.70 - [facility] 6.10 [facility] x10(3)/[facility] LABORATORY Lymphocytes % 35.9 % [facility] LABORATORY Lymphocytes Abs 2.6 0.9 - 3.2 [facility] x10(3)/[facility] LABORATORY Monocytes % 9.6 % [facility] LABORATORY Monocyte Abs 0.7 0.3 - 0.9 [facility] x10(3)/[facility] LABORATORY Eosinophils % 1.1 % [facility] LABORATORY Eosinophils Abs 0.1 0.0 - 0.4 [facility] x10(3)/[facility] LABORATORY Basophils % 0.8 % [facility] LABORATORY Basophils Abs 0.1 0.0 - 0.1 [facility] x10(3)/[facility] LABORATORY Immature Gran % 0.10 % [facility] LABORATORY Comment: Immature granulocytes(IG's)percentage an d absolute count will include metamyelocytes, myelocytes, and promyelo cytes. Blood smears from CBCs yielding IG's will be scanned manually for concor dance. If this scan disagrees with the automated IG or if promyelocytes are not ed, a manual differential will be performed. Josey Gran Abs 0.01 0.00 - 0.04 x10(3)/[facility] LABORATORY Specimen Anatomical Collection Method Collection Time Receive d Time (Source) Location / / Volume Laterality Blood specimen 06/21/2020 3:40 PM 020 3:59 (specimen) EST PM EST Resulting Agency Comment Spec In Lab Maribell Butler MD HEMATOLOGY ORDERABLES Performing Organization Address City/State/[place] [address] (ABNORMAL) Hemogram (06/21/2020 3:40 PM EST) Analysis Performed At Patho logist Time Signature WBC 7.2 4.0 - 9.5 [facility] x10(3)/[facility] LABORATORY RBC 3.79 (L) 4.00 - [facility] 5.21 [facility] x10(6)/[facility] LABORATORY Hemoglobin 9.8 (L) 11.7 [facility] gm/dL [facility] LABORATORY Hematocrit 31.2 (L) 35.7 - [facility] 45.8 % [facility] LABORATORY MCV 82.3 (L) 82.6 - [facility] 94.4 fL [facility] LABORATORY MCH 25.9 (L) 27.1 - [facility] 32.0 pg [facility] LABORATORY MCHC 31.4 (L) 31.7 - [facility] 35.[facility] gm/dL [facility] LABORATORY Platelets 175 145 - 357 [facility] x10(3)/[facility] LABORATORY RDWSD 49.9 (H) 37.0 - [facility] [place] 46.0 [facility] LABORATORY RDWCV 16.5 (H) 11.5 - [facility] [place] 14.1 % [facility] LABORATORY MPV 9.7 7.6 - 12.9 [facility] LABORATORY nRBC % Auto 0.0 % [facility] LABORATORY nRBC Abs Auto 0.000 0.000 - [facility] [place] 0.000 [facility] x10(3)/[facility] LABORATORY Specimen Anatomical Collection Method Collection Time Receive d Time (Source) Location / / Volume Laterality Blood specimen 06/21/2020 3:40 PM 020 3:59 (specimen) EST PM EST Resulting Agency Comment Spec In Lab Maribell Butler MD HEMATOLOGY ORDERABLES Performing Organization Address City/[facility]/[place] [address] (ABNORMAL) APTT (06/21/2020 3:40 PM EST) P athologist Signature PTT 40 (H) 25 - 37 sec [facility] LABORATORY Comment: The PTT is NOT appropriate for heparin m onitoring. Use the Anti-Xa level for heparin monitoring (HEP UFH) or LMWH mon itoring (HEP LMW). A PTT less than 37 seconds generally indicates adequate hem ostasis. Specimen Anatomical Collection Method Collection Time Receive d Time (Source) Location / / Volume Laterality Blood specimen 06/21/2020 3:40 PM 020 3:59 (specimen) EST PM EST Resulting Agency Comment Spec In Lab Felix Carlson MD HEMATOLOGY ORDERABLES Performing Organization Address City/State/[place] [address] (ABNORMAL) Prothrombin Time (06/21/2020 3:40 PM EST) P athologist Signature PT 19.4 (H) 9.4 - 12.5 [facility] LABORATORY INR 1.7 [facility] LABORATORY Comment: An INR <2.0 indicates adequate procoagul ant activity for hemostasis in most patients without underlying bleeding dis orders, though the INR may not adequately reflect hemostatic capacity i n patients with liver disease and synthetic impairment. The recommended ta rget INR range for therapeutic anticoagulation is 2.0 ? 3.0 for most applications, though lower and higher ranges may be appropriate depending on c linical circumstances. Specimen Anatomical Collection Method Collection Time Receive d Time (Source) Location / / Volume Laterality Blood specimen 06/21/2020 3:40 PM 020 3:59 (specimen) EST PM EST Resulting Agency Comment Spec In Lab Felix Carlson MD HEMATOLOGY ORDERABLES Performing Organization Address City/State/[place] [address] Phosphorus (06/21/2020 3:40 PM EST) P athologist Signature Phosphorus 3.2 2.5 - 4.5 [place] mg/dL [facility] LABORATORY Specimen Anatomical Collection Method Collection Time Receive d Time (Source) Location / / Volume Laterality Blood specimen 06/21/2020 3:40 PM 020 3:59 (specimen) EST PM EST Resulting Agency Comment Spec In Lab Felix Carlson MD CHEMISTRY ORDERABLES Performing Organization Address City/[facility]/[place] [address] (ABNORMAL) Hepatic Function Panel (06/21/2020 3:40 PM EST) P athologist Signature Total Protein 5.7 (L) 6.1 - 8.0 [place] gm/dL [facility] LABORATORY Albumin 2.9 (L) 3.2 - 5.2 [place] gm/dL [facility] LABORATORY AST 48 (H) 0 - 30 [place] unit/L [facility] LABOR[facility]ORY ALT 17 0 - 30 [facility] [place] unit/L [facility] LABORATORY Alk Phos 104 35 - 105 [place] unit/L [facility] LABORATORY Total 9.2 (H) 0.2 - 1.3 [place] Bilirubin mg/dL [facility] LABORATORY Bili, Direct 5.4 (H) 0.0 - 0.3 [place] mg/dL [facility] LABORATORY Specimen Anatomical Collection Method Collection Time Receive d Time (Source) Location / / Volume Laterality Blood specimen 06/21/2020 3:40 PM 020 3:59 (specimen) EST PM EST Resulting Agency Comment Spec In Lab Felix Carlson MD CHEMISTRY ORDERABLES Performing Organization Address City/State/ZIP Code Phon e Number [address] Magnesium (06/21/2020 3:40 PM EST) P athologist Signature Magnesium 0.78 0.69 - 1.07 [facility] mmol/L [facility] LABORATORY Specimen Anatomical Collection Method Collection Time Receive d Time (Source) Location / / Volume Laterality Blood specimen 06/21/2020 3:40 PM 020 3:59 (specimen) EST PM EST Resulting Agency Comment Spec In Lab Felix Carlson MD CHEMISTRY ORDERABLES Performing Organization Address City/[facility]/ZIP Code Phon e Number [address] (ABNORMAL) Basic Metabolic Panel (non-fasting) (06/21/2020 3:40 PM EST) athologist Signature Glucose Lvl 98 65 - 199 [facility] mg/dL [facility] LABORATORY Comment: Diabetes: >=200 mg/dL plus symp toms BUN 10 8 - 18 mg/dL [facility] LABORATORY Creatinine 0.82 0.70 - 1.20 mg/dL [facility] LABORATORY Sodium 138 135 - 145 mmol/L [facility] LABORATORY Potassium 4.8 3.5 - 5.0 mmol/L [facility] LABORATORY Comment: Please note: ??Patients with WBC >100,00 0 may have falsely elevated Potassium levels. ??For accurate Potassium quantif ication in these patients send serum separator tube (gold top) for subsequent determinations. ??Contact the Clinical Chemistry Laboratory if there are any qu estions. Chloride 110 (H) 98 - 107 mmol/L [facility] LABORATORY CO2 19 (L) 22 - 31 mmol/L [facility] LABORATORY Anion Gap 9 5 - 15 mmol/L [facility] LABORATORY Calcium 8.6 8.5 - 10.5 mg/dL [facility] LABORATORY Estimated GFR 89 >=60 mL/min/1.73 m?? [facility] LABORATORY Comment: The eGFR was calculated using the CKD-EP I equation. As with all creatinine based estimates of kidney function, eGFR values calculated with the CKD-EPI equation are not accurate in patients wi th acute kidney failure, extremes of body mass or the acutely ill. http://[employer] (acquired by [employer] in 2014)/[facility] eGFR 103 >=60 mL/min/1.73 m?? [facility] LABORATORY Comment: The eGFR was calculated using the CKD-EP I equation. As with all creatinine based estimates of kidney function, eGFR values calculated with the CKD-EPI equation are not accurate in patients wi th acute kidney failure, extremes of body mass or the acutely ill. http://[employer] (acquired by [employer] in 2014)/[facility] Specimen Anatomical Collection Method Collection Time Receive d Time (Source) Location / / Volume Laterality Blood specimen 06/21/2020 3:40 PM 020 3:59 (specimen) EST PM EST Resulting Agency Comment Spec In Lab Felix Carlson MD CHEMISTRY ORDERABLES Performing Organization Address City/State/[place] [address] documented in this encounter Visit Diagnoses Not on filedocumented in this encounter Admitting Diagnoses Diagnosis UGIB (upper gastrointestinal bleed) Hemorrhage of gastrointestinal tract, un specified documented in this encounter Administered Medications Inactive Administered Medications - up to 3 most recent administrations Medication Order MAR Action Action Date Dose Rate Site cefTRIAXone (Rocephin) 1 g vial New Bag 06/22/2020 5:02 PM EST 1 g 100 mL/hr attach to sodium chloride 0.9% 50 mL Mini-Bag Plus 1 g, Intravenous, EVERY 24 HOURS, 5 doses, First dose on 06/21/20 at 1730, Last dose on 06/25/20 at 1730, Administer over 30 Minutes, Indication for (Active or Suspected): Bacteremia/Sepsis New Bag 06/21/2020 5:03 PM EST 1 g 100 mL/hr folic acid (Folvite) tablet 1,000 mcg Given 06/23/2020 8:15 AM EST 1,000 mcg 1,000 mcg (1 mg), Oral, DAILY, First dose on 06/21/20 at 1630, Until Discontinued, Routine Given 06/22/2020 9:53 AM EST 1,000 mcg Given 06/21/2020 4:08 PM EST 1,000 mcg multivitamin with minerals (THERA-M) tablet Given 06/02 8:15 AM EST 1 tablet 1 tablet 1 tablet, Oral, DAILY, First dose on 06/21/20 at 1630, Until Discontinued, Routine Given 06/22/2020 9:52 AM EST 1 tablet Given 06/21/2020 4:08 PM EST 1 tablet ondansetron (ZOFRAN) injection 4-8 mg 4-8 mg, Intravenous, EVERY 8 HOURS PRN, Starting on 06/21/20 at 1531, Until 06/23/20 at 1555, Nausea, Start with 4mg and if ineffective in 30 minutes, give an additional 4mg If multiple antiemetic s are ordered, give ondansetron first. ondansetron (Zofran) tablet 4-8 mg 4-8 mg, Oral, EVERY 8 HOURS PRN, Starting on Sat 06/21 at 1531, Until 06/23/20 at 1555, Nausea, Vomiting, If multiple anti emetics are ordered, use ondansetron first. PO Preferred. If patient unable t o take PO, may give IV if ordered. Start with 4mg and if ineffecti ve in 45 minutes, give an additional 4mg. If unable to take PO, may give IV., Routine pantoprazole (PROTONIX) injection 40 mg Given 06/23/2020 8:14 AM EST 40 mg 40 mg, Intravenous, 2 TIMES DAILY, First dose on 06/21/20 at 2100, Until Discontinued Given 06/22/2020 8:05 PM EST 40 mg Given 06/22/2020 9:57 AM EST 40 mg sodium chloride 0.9 % (flush) flush 5 mL Given 06/23/2020 8:14 AM EST 5 mLs 5 mL, Intravenous, 2 TIMES DAILY, First dose on 06/21/20 at 2100, Until Discontinued, Routine Given 06/22/2020 8:05 PM EST 5 mLs Given 06/22/2020 5:00 AM EST 5 mLs thiamine (Vitamin B1) tablet 100 mg Given 06/23/2020 8:15 AM EST 100 mg 100 mg, Oral, DAILY, First dose on 06/21/20 at 1630, Until Discontinued, Routine Given 06/22/2020 9:00 AM EST 100 mg Given 06/21/2020 4:08 PM EST 100 mg documented in this encounter Active and Recently Administered Medications Times are shown in EST. Scheduled Medication Order 06/21/2020 06/22/2020 06/23/2020 cefTRIAXone (Rocephin) 1 g vial attach t o sodium chloride 0.9% 50 mL Mini-Bag Plus 1703 (New Bag - Provider: Rola mi RN)1733 (Stopped - Provider: Rola Resendez RN) 1040 ([facility] Hold - Provider: Admin Adt - R alida: Transfer to a Procedural area)1213 ([facility] Unhold - Provider: Admin Adt)1702 (New Bag - Provider: Kimmy Sheikh RN)1732 (Stopped - Provider: Kimmy Sheikh RN) 1 g, Intravenous, EVERY 24 HOURS, 5 dose s, First dose on 06/21/20 at 1730, Last dose on 06/25/20 at 1730, Administer over 30 Minutes, Indication for (Active or Suspected): Bacteremia/Sepsis folic acid (Folvite) tablet 1,000 mcg 1608 (Given - Pr ovider: Rola Resendez RN) 0953 (Given - Provider: Susi Hernandez RN)1040 ([facility] Hold - Provider: Admin Adt - Reason: Transfer to a Procedural area)1213 ([facility] Unhold - Provider: Admin Adt) 0815 (Given - Provider: Dora De Dios RN) 1,000 mcg (1 mg), Oral, DAILY, First dos e on 06/21/20 at 1630, Until Discontinued, Routine magnesium sulfate 2 g in sterile water 50 mL (CANCELED ) 2341 (New Bag - Provider: Karmen Jones RN) 0020 (Stopped - Provider: Karmen Jones RN) 2 g, Intravenous, ONCE, 1 dose, Sat 06/02 08/20 at 2330, Administer over 120 Minutes multivitamin with minerals (THERA-M) tablet 1 tablet 1 608 (Given - Provider: Rola Resendez RN) 0952 (Given - Provider: Susi Hernandez RN)1040 ([facility] Hold - Provider: Admin Adt - Reason: Transfer to a Procedural area)1213 ([facility] Unhold - Provider: Admin Adt) 0815 (Given - Provider: Dora De Dios, ARANZA) 1 tablet, Oral, DAILY, First dose on 06/21/20 at 1630, Until Discontinued, Routine pantoprazole (PROTONIX) injection 40 mg 2034 (Given - Provider: Karmen Jones RN) 0957 (Given - Provider: Susi Hernandez RN)1040 ([facility] Hold - Provider: Admin Adt - Reason: Transfer to a Procedural area)1213 ([facility] Unhold - Provider: Admin Adt)2004 (Given - Provider: Zahida White RN) 0814 (Given - Provider: Dora De Dios, ARANZA) 40 mg, Intravenous, 2 TIMES DAILY, First dose on 06/21/20 at 2100, Until Discontinued phytonadione (vitamin K1) (Aqua-Mephyton ) 10 mg in sodium chloride 0.9% 51 mL infusion 1840 (New Bag - Provider: Rola mi RN)1940 (Stopped - Provider: Karmen Jones RN) 0959 (New Bag - Provider: Susi streeter RN)1040 ([facility] Hold - Provider: Admin Adt - Reason: Transfer to a Procedural area)1059 (Stopped - Provider: Susi Hernandez RN - Comment: waiting for IV access, while waiting pt transferred to OR) 0900 (Not Given - Provider: Dora De Dios RN - Reason: Medication not available) 10 mg, Intravenous, DAILY, 3 doses, Firs t dose on 06/21/20 at 1800, Last dose on 06/23/20 at 0900, Administer over 60 Minutes, Administer by slow IV infusion over 60 minutes 1213 ([facility] Unhold - Provider: Admin Adt) sodium chloride 0.9 % (flush) flush 5 mL 2034 (Given - Provider: Karmen Jones RN) 0500 (Given - Provider: Susi Hernandez RN)1040 ([facility] Hold - Provider: Admin Adt - Reason: Transfer to a Procedural area)1213 ([facility] Unhold - Provider: Admin Adt)2004 (Given - Provider: Zahida White, RN) 0814 (Given - Provider: Dora De Dios, ARANZA) 5 mL, Intravenous, 2 TIMES DAILY, First dose on 06/21/20 at 2100, Until Discontinued, Routine sodium chloride 0.9% 500 mL IV bolus (COMPLETED) 2307 (New Bag - Provider: Karmen Jones, ARANZA)2337 (Stopped - Provider: Karmen Jones RN) at 1,000 mL/hr, Intravenous, ONCE, 1 dose, 06/21/20 at 2330 thiamine (Vitamin B1) tablet 100 mg 1608 (Given - Prov ider: Rola Resendez RN) 0900 (Given - Provider: Susi Hernandez, ARANZA)1040 ([facility] Hold - Provider: Admin Adt - Reason: Transfer to a Procedural area)1213 ([facility] Unhold - Provider: Admin Adt) 0815 (Given - Provider: Dora De Dios, ARANZA) 100 mg, Oral, DAILY, First dose on Sat 1 08/21/19 at 1630, Until Discontinued, Routine Continuous Medication Order 06/21/2020 06/22/2020 06/23/2020 octreotide acetate (SandoSTATIN) 500 mcg in sodium chloride 0.9% 100 mL infusion (CANCELED) 1606 (New Bag - Provider: Rola Resendez RN) 0021 ( New Bag - Provider: Karmen Jones, ARANZA)1040 ([facility] Hold - Provider: Admin Adt - Reason: Transfer to a Procedural area)1121 ([facility] Unhold - Provider: Letty Brumfield, ARANZA) 50 mcg/hr (10 mL/hr), at 10 mL/hr, Intra venous, CONTINUOUS, Starting 06/21/20 at 1630, Until 06/22/20 at 1242 1122 (Con tinued Bag - Provider: Letty Brumfield, ARANZA - Comment: continued bag from Endo) PRN Medication Order 06/21/2020 06/22/2020 06/23/2020 lidocaine (XYLOCAINE) 10 mg/mL (1 %) injection 3 mg 1040 ([facility] Hold - Provider: Admin Adt - Reason: Transfer to a Procedural area)1213 ([facility] Unhold - Provider: Admin Adt) 3 mg (0.3 mL), Subcutaneous, ONCE PRN, 1 dose, Starting 06/21/20 at 1531, Until 06/23/20 at 1555, for discomfort with PIV insertion, Routine ondansetron (ZOFRAN) injection 4-8 mg(Linked Group 1) 1040 ([facility] Hold - Provider: Admin Adt - Reason: Transfer to a Procedural area)1213 ([facility] Unhold - Provider: Admin Adt) 4-8 mg, Intravenous, EVERY 8 HOURS PRN, Starting 06/21/20 at 1531, Until 06/23/20 at 1555, Nausea, Start with 4mg and if ineffective in 30 minutes, give an additional 4mg If multiple antiemetics are ordered, give ondansetron first. ondansetron (Zofran) tablet 4-8 mg(Linked Group 1) 1040 ([facility] Hold - Provider: Admin Adt - Reason: Transfer to a Procedural area)1213 ([facility] Unhold - Provider: Admin Adt) 4-8 mg, Oral, EVERY 8 HOURS PRN, Startin g 06/21/20 at 1531, Until 06/23/20 at 1555, Nausea, Vomiting, If multiple antiemetics are ordered, use ondansetron first. PO Preferred. If patient kavitha ble to take PO, may give IV if ordered. Start with 4mg and if ineffective in 45 minutes, give an additional 4mg. If unable to take PO, may give IV., Routine sodium chloride 0.9 % (flush) flush 5-20 mL 1040 ([facility] Hold - Provider: Admin Adt - Reason: Transfer to a Procedural area)1213 ([facility] Unhold - Provider: Admin Adt) 5-20 mL, Intravenous, EVERY 1 MIN PRN, S tarting 06/21/20 at 1531, Until 06/23/20 at 1555, flush, Flush pertains to all indwelling lines. Flush per protocol found in the job aid using the link provided on this medication record., Routine Linked Groups Order Group 1: ondansetron (Zofran) tablet 4-8 mgJump to med 4-8 mg, Oral, EVERY 8 HOURS PRN, Startin g 06/21/20 at 1531, Until Tue06/23/20 at 1555, Nausea, Vomiting
If multiple antiemetics are ordered, use ondansetron first. PO Preferr ed. If patient unable to take PO, may gi ve IV if ordered. Start with 4mg and if ineffective in 45 minutes, give an additional 4mg. If unable to take PO, may give IV.
Routine Or ondansetron (ZOFRAN) injection 4-8 mgJump to med 4-8 mg, Intravenous, EVERY 8 HOURS PRN, Starting 06/21/20 at 1531, Until 06/23/20 at 1555, Nausea
Start with 4mg and if ineffective in 30 minutes, give an additional 4mg If multiple antiemetics are ordered, give o ndansetron first.
documented in this encounter Care Teams Content Designer Relationship Specialty Start Date End Date Julieta Odell APRN PCP - General Family Medicine 04/11/20 [address] [place] [address] documented as of this encounter
--- OUTSIDE RECORDS SUMMARY | 2022-04-22 08:33 | XMS_ITS | Encounter Summary ---
:1980 Author Organization [facility] [place] [address] Care Team Providers Name Role Phone OdellJulieta APRN Primary Care Provider [phone] Encounter Details Date Type Department Care Team Description 06/21/2020 Telephone Gastroenterology at [facility] Genie Martin MD [facility] [place] [address] GASTROENTEROLOGY DEPT [phone] [place], [place] [address] (Wo rk) Social History Tobacco Use Types Packs/Day Years Used Date Never Smoker Smokeless Tobacco: Never Used Comments: never Alcohol Use Standard Drinks/Week Comments Not Currently 10 (1 standard drink = 0.6 oz pure alcoh ol) Alcohol Habits Answer Date Recorded How often do you have a drink containing 4 or more times a w [place] 06/21/2020 alcohol? How many drinks containing alcohol do you have 1 or 2 06/21/2020 on a typical day when you are drinking? How often do you have six or more drinks on one Not asked 06/21/2020 occasion? Comment: Not asked Sex Assigned at Date Recorded Not on file documented as of this encounter Miscellaneous Notes Telephone Encounter - Genie Martin - 06/21/2020 10:58 AM EST Transfer Center Call: I received a call from Dr. Ronquillo at [facility]. Briefly, this is a 39 yo woman with hx of newly diagnosed EtOH cirrhosis, alcoholic hepatitis, recent admission Apr for hemorrhagic shock in the s/o gastric ulcer s/p clipping and GDA embolizationwho presented to the ED with nausea/vomiting, weakness and dizziness. No report of overt GI bleedingat home. Seen in the ED to have some dark bloody emesis. She was given octreotide gtt, PPI gtt, rocephin. She has two good IVs. Hgb 8.3--> 6.8 after receiving 500 cc IVF. BP occasionally drop to themid 80s, per patient this is around her baseline. She is receiving 1 unit PRBC and now BP is 98/58. Labs: TB 8 AP 114 AST 51 ALT 24 Alb 2.6 INR 1.4 Plts 170 Based on the information provided to me that has been outlined above, the general recommendations for this type of patient is transfer for UGIB, Dr. Dockery has accepted the patient to the SDU. Agree with octreotide gtt, PPI IV and abx. She need evaluation for EGD. COVID is pending. This is not an official consult, as my recommendations are limited by my inability to interview and examine the patient as well as personally review the medical record, imaging, and laboratory findings. Genie Martin MD Gastroenterology PGY-6 06/21/2020 10:58 AM Pager #[phone] documented in this encounter Plan of Treatment Not on filedocumented as of this encounter Visit Diagnoses Not on filedocumented in this encounter Care Teams Recreation Program Specialist Relationship Specialty Start Date End Date Julieta Odell, BRONZER PCP - General Family Medicine 04/11/20 [address] [place] [address] documented as of this encounter
--- OUTSIDE RECORDS SUMMARY | 2022-04-22 08:33 | XMS_ITS | Encounter Summary ---
:1980 Author Organization [facility] Address [address] [place] [address] Care Team Providers Name Role Phone Julieta Odell Lizzy ESPOSITO Primary Care Provider [phone] Reason for Visit Auth/Cert Specialty Diagnoses / Procedures Referred By Contact Refer red To Contact Diagnoses UGIB (upper gastrointestinal bleed) upper GI bleed Procedures EMERGENCY IPI Referral ID Status Reason Start Date Expiration Date Visits Requ ested Visits Authorized [id number] 1 1 Encounter Details Date Type Department Care Team Description 06/22/2020 Anesthesia Event Gastroenterology at [facility] Lupillo Quintanilla MD [facility] [place] [address] [place] [address] [facility] Julee Meier CRNA [facility] [place] [address] [place] [address] [place] [address] Anesthesia Record Procedure Summary Procedure Name Responsible Anesthesia Start Anesthesia Stop Time Anesthesiologist Time EGD WITH BIOPSY Lupillo Quintanilla MD 06/22/20 1039 06/22/20 1 112 (WRVU 2.49) (N/A Trunk) Events Date Time Event Comment 06/22/2020 1031 1039 AN Verify 1039 Start 1039 An Start Data 1044 An Induction 1045 An Intubation 1054 Anesthesia Ready 1108 Extubation/LMA Out 1112 an stop data 1112 Recovery or ICU Handoff Patient care was transferred to the destination unit staff after review of the patient's medica l history, current anesthetic/surgi kassidy status and plan, according to the Provider Handoff Checklist. 1112 Stop Name Total Midazolam 2 mg IV Lidocaine 100 mg Propofol 200 mg Ondansetron 4 mg Succinylcholine 100 mg Lactated Ringers 400 mL Agents Name O2 Air N2O Sevoflurane (et) Blood No blood administrations on file. Lines, Drains, and Airways Type Details Placement Removal Incision 04/12/20; 0020; groin; 04/12/20 0020 by Shlomo, 03/29/22 1715 by non-laparascopic puncture; ARANZA Pang Dierdre Siddhartha angiogram with intervention; 03/29/22 (LDA cleanup utility RA#[id number]); 1715 (LDA cleanup utility RA#[id number]) Incision 05/06/20; 1213; lower 05/06/20 1213 by Malnati, 03/29/22 1715 by quadrant; non-laparascopic ARANZA Muniz Dierdre Siddhartha puncture; 03/29/22 (LDA cleanup utility RA#[id number]); 1715 (LDA cleanup utility RA#[id number]) PIV 06/21/20; 1610; median 06/21/20 1610 by Susankey, 06/22/20 1015 by cubital vein (antecubital Rola Mo RN [place] ad, Susi Ball RN fossa), left; pt c/o of pain at site; removed per patient; 06/22/20; 1015 PIV 06/21/20; 2219; basilic vein 06/21/20 2219 by 1304 by (medial side of arm), right; Hunter Gordon, ARANZA De Dios, Dora Pratt, RN [id number] catheter system; 22 gauge, 1 in length; hunter naqvi; distraction, tolerated well, appears comfortable; 0; 06/23/20; 1304 ETT Mask Ventilation: Not 06/22/20 1045 by Luke, 1108 by Luke, Attempted (0); ETT Type: Shreena K, AVIONIC TECHNICIAN Shreena K, AVIONIC TECHNICIAN Cuffed; ETT Size: 7 mm; Indirect:Video; Attempts: 1; Laryngoscopy Grade: 1; ETT Placement Verified By: Auscultation, Capnometry, Visual (atraumatic intubation with dentition unchanged from pre-op eval ); Secured at Teeth: 21 cm; Inserted by: SUMEET Peterson documented in this encounter Social History Tobacco Use Types Packs/Day Years Used Date Never Smoker Smokeless Tobacco: Never Used Comments: never Alcohol Use Standard Drinks/Week Comments Not Currently 10 (1 standard drink = 0.6 oz pure alcoh ol) Alcohol Habits Answer Date Recorded How often do you have a drink containing 4 or more times a w [place] 06/21/2020 alcohol? How many drinks containing alcohol do you have 1 or 2 06/21/2020 on a typical day when you are drinking? How often do you have six or more drinks on one Not asked 06/21/2020 occasion? Comment: Not asked Sex Assigned at Date Recorded Not on file documented as of this encounter OR Notes Anesthesia Postprocedure Evaluation - Lupillo Quintanilla MD - 06/22/2020 11:30 PM EST Department of Anesthesiology Post-procedure Note Patient: Violet Cowan Procedure Summary Date: 06/22/20 Room / Location: [facility] ENDO 2 / [facility] ENDOSCOPY Anesthesia Start: 1039 Anesthesia Stop: 111 Procedure: EGD WITH BIOPSY (WRVU 2.49) (N/A Trunk) Diagnosis: (GI bleed) Surgeon: Siddhartha Arreola MD Responsible Provider: Lupillo Quintanilla MD Anesthesia Type: general ASA Status: 3 - Emergent All Anesthesia Providers: Anesthesiologist: Lupillo Quintanilla MD AVIONIC TECHNICIAN: Julee Butler CRNA Vitals Value Taken Time BP 96/60 06/22/20 1204 Temp 36.7 ??C (98.1 ??F) 06/22/20 1200 Pulse 75 06/22/20 1204 Resp 21 06/22/20 1204 SpO2 98 % 06/22/20 1204 Pain Level 0 06/22/20 1200 Vitals shown include unvalidated device data. Patient Location: PACU/[facility] Level of Consciousness: Awake and Alert Pain Management: Satisfactory Analgesia PONV: None Cardiovascular Status: At Baseline and Hemodynamically Stable Respiratory Status: At Baseline and Room Air Postoperative Fluid Status: Intravascular EUvolemia Possible Anesthetic Complications: NONE apparent at time of evaluation Final Primary Anesthesia Type: General (The anesthetic type performed was the same as planned.) Comments: Lupillo Quintanilla MD Anesthesia Preprocedure Evaluation - Lupillo Quintanilla MD - 06/22/2020 10:29 AM EST Pre-Anesthesia Evaluation for: Violet Cowan a 39 y.o. female. Procedure(s): EGD, UPPER GI ENDOSCOPY Patient Active Problem List Diagnosis ??? UGIB (upper gastrointestinal bleed) ??? Alcoholic hepatitis with ascites ??? Alcoholic hepatitis ??? Jaundice ??? GI bleed Past Medical History: Diagnosis Date ??? Cirrhosis, alcoholic ??? UGIB (upper gastrointestinal bleed) gastric ulcer 04/2020 Past Surgical History: Procedure Laterality Date ??? IR ARTERIAL INTERVENTION 04/12/2020 IR Arterial Intervention 04/12/2020 Carlitos Steve, DO [facility] INTERVENTIONL RAD ??? IR PARACENTESIS 04/21/2020 IR Paracentesis 04/21/[address] [facility] INTERVENTIONL RAD ??? IR PARACENTESIS 04/28/2020 IR Paracentesis 04/28/[address] [facility] INTERVENTIONL RAD ??? IR PARACENTESIS 05/06/2020 IR Paracentesis 05/06/2020 Carlitos Steve, DO [facility] INTERVENTIONL RAD Social History Tobacco Use ??? Smoking status: Never Smoker ??? Smokeless tobacco: Never Used ??? Tobacco comment: never Substance Use Topics ??? Alcohol use: Not Currently Alcohol/week: 10.0 standard drinks Types: 10 Shots of liquor per week Frequency: 4 or more times a week Drinks per session: 1 or 2 Social History Substance and Sexual Activity Drug Use Never No Known Allergies Medications: MAR and/or home medications have been reviewed. Physical Exam: Patient Vitals for the past 24 hrs: Temp Heart Rate From SP02 Pulse Resp BP SpO2 O2 Device 06/21/20 1600 37.2 ??C (99 ??F) 76 bpm 76 13 106/58 100 % RA 06/21/20 2000 37 ??C (98.6 ??F) 86 bpm 85 19 98/58 100 % -- 06/21/20 2200 -- 90 bpm 90 16 (!) 87/45 97 % -- 06/21/20 2204 -- 93 bpm 90 16 (!) 85/48 96 % -- 06/21/20 2230 -- 90 bpm 90 21 (!) 84/48 98 % -- 06/21/20 2300 -- 85 bpm 86 16 (!) 86/45 98 % -- 06/22/20 0000 36.9 ??C (98.4 ??F) 83 bpm 83 19 109/69 100 % RA 06/22/20 0400 36.9 ??C (98.4 ??F) 83 bpm 83 18 99/57 98 % RA 06/22/20 0700 36.8 ??C (98.2 ??F) 84 bpm 84 16 97/60 97 % RA Body mass index is 23.65 kg/m??. Height: 170.2 cm (5' 7.01) Weight: 68.5 kg (151 lb 0.2 oz) Airway Assessment: Mallampati: II TM distance: >3 FB Neck ROM: full Cardiovascular Assessment: Rhythm: regular Pulmonary Assessment: breath sounds clear to auscultation Dental Assessment: Misc Assessment: Patient is wearing No contact(s). IV access: Peripheral line Anesthesia Plan: ASA 3 emergent general, with a(n) intravenous induction Brief HPI: 39 y.o. with hematemesis to endo suite for EGD, UPPER GI ENDOSCOPY (N/A Trunk) Patient Active Problem List: GI bleed (K92.2) Jaundice (R17) Alcoholic hepatitis with ascites (K70.11) Alcoholic hepatitis (K70.10) UGIB (upper gastrointestinal bleed) (K92.2) Past Medical History: No date: Cirrhosis, alcoholic No date: UGIB (upper gastrointestinal bleed) Comment: gastric ulcer 04/2020 METS:>4 Cardiac Symptoms: none LABS: Lab Results Component Value Date HGB 9.1 (L) 06/22/2020 PLATELET 171 06/22/2020 INR 1.7 06/21/2020 NA 136 06/22/2020 K 4.3 06/22/2020 CREATININE 0.91 06/22/2020 Type and Screen: Lab Results Component Value Date ABORH A Pos 06/21/2020 Past anesthetic problems: none NPO status: Reviewed and appropriate Anesthetic Plan: FELICITA VILLAVICENCIO, alra Monitoring: Standard ASA monitors I have seen and examined the patient. I have reviewed the medical record and pertinent laboratory information. I have noted the major medical issues to include abcd. I have reviewed risks from minor tomajor as outlined in the anesthesia consent form. I have highlighted risks related to abcd. The patient acknowledged These risks and would like to proceed with the anesthesia plan. Region - Other Informed Consent: Anesthetic plan and risks discussed with patient. Use of blood products discussed with patient who. Plan discussed with AVIONIC TECHNICIAN. PAT Clinic Note documented in this encounter Plan of Treatment Not on filedocumented as of this encounter Visit Diagnoses Not on filedocumented in this encounter Administered Medications Inactive Administered Medications - up to 3 most recent administrations Medication Order MAR Action Action Date Dose Rate Site lactated ringers infusion New Bag 06/22/2020 10:39 AM EST CONTINUOUS PRN, Starting on 06/22/20 at 1039, Until 06/22/20 at 1112, Anesthesia Intra-op lidocaine (PF) (XYLOCAINE) 100 mg/5 mL (2 %) Given 10:44 AM EST 100 mg injection PRN, Starting on 06/22/20 at 1044, Until 06/22/20 at 1112, Anesthesia Intra-op, Routine midazolam (PF) (VERSED) multi-dose injec tion Given 06/22/2020 10:39 AM EST 2 mg PRN, Starting on 06/22/20 at 1039, Until 06/22/20 at 1112, Anesthesia Intra-op, Routine ondansetron (ZOFRAN) injection Given 06/22/2020 11:01 AM EST 4 mg PRN, Starting on 06/22/20 at 1101, Until 06/22/20 at 1112, Anesthesia Intra-op, Routine propofoL (Diprivan) 10 mg/mL bolus injection Given 10:44 AM EST 200 mg (Anesthesia) PRN, Starting on 06/22/20 at 1044, Until 06/22/20 at 1112, Anesthesia Intra-op succinylcholine chloride (Quelicin) Given 06/22/2020 10:44 AM ES T 100 mg injection PRN, Starting on 06/22/20 at 1044, Until [place] 06/22/20 at 1814, Anesthesia Intra-op, Routine documented in this encounter Care Teams Health Informatics Specialist Relationship Specialty Start Date End Date Julieta Odell, HELPDESK ADMINISTRATOR PCP - General Family Medicine 04/11/20 [address] [place] [address] documented as of this encounter
--- OUTSIDE RECORDS SUMMARY | 2022-04-22 08:33 | XMS_ITS | Encounter Summary ---
:1980 Author Organization [facility] [place] [address] Care Team Providers Name Role Phone Julieta Odell VAIBHAV Primary Care Provider [phone] Reason for Visit Auth/Cert Specialty Diagnoses / Procedures Referred By Contact Refer red To Contact Diagnoses Polyp of colon polyp removal Procedures PRO ENDOSCOPIC US EXAM, ESOPH PRO ANESTH, COMBINED UPPER OR LOWER ENDOSCOPY UPPER EUS- ENDOSCOPIC ULTRASOUND Referral ID Status Reason Start Date Expiration Date Visits Requ ested Visits Authorized [id number] 1 1 Encounter Details Date Type Department Care Team Description 01/23/2021 Hospital Encounter Gastroenterology at [facility] [place] [address] [facility] [phone] [place] [facility] [place], [place] [address] Social History Tobacco Use Types Packs/Day Years Used Date Never Smoker Smokeless Tobacco: Never Used Comments: never Alcohol Use Standard Drinks/Week Comments Not Currently 10 (1 standard drink = 0.6 oz pure alcoh ol) last drink apr 11 2020 Alcohol Habits Answer Date Recorded How often do you have a drink containing 4 or more times a w [place] 06/21/2020 alcohol? How many drinks containing alcohol [...] better as expected. Tuesday-Tuesday Same Day Endo [phone] [id number] Otherwise contact [phone] and ask to speak to the mosaic worker sponge hooker Follow-up care is a fish part of [...] Component Value Ref Test Analysis Performed At [facility] Range Method Time Signature UPPER [facility] PROVATION ENDOSCOPIC Endoscopy ULTRASOUND _ Procedure Date: 01/23/2021 10:19 AM ? Patient Name: Violet Cowan ? Date of : 1980 ? Age: 40 ? Order #: [id number] ? Instrument Name: GIF [id number] [id number] ? Procedure: ? Upper EUS Indications: ? [...] Procedure) documented in this encounter Care Teams Machine Hoop Maker Relationship Specialty Start Date End Date Julieta Odell APRN PCP - General Family Medicine 04/11/20 [address] [place] [address] documented as of this encounter
--- OUTSIDE RECORDS SUMMARY | 2022-04-22 08:33 | XMS_ITS | Encounter Summary ---
:1980 Author Organization [facility] [place] [address] Care Team Providers Name Role Phone OdellJulieta stacy Lizzy ESPOSITO Primary Care Provider Reason for Visit Auth/Cert Specialty Diagnoses / Procedures Referred By Contact Refer red To Contact Diagnoses UGIB (upper gastrointestinal bleed) upper GI bleed Procedures EMERGENCY IPI Referral ID Status Reason Start Date Expiration Date Visits Requ ested Visits Authorized [id number] 1 1 Encounter Details Date Type Department Care Team Description 06/21/2020 - [address] [place] [address] Gastrointestinal 06/23/2020 Encounter [facility] [place] [address] hemorrhage, [facility] [place] [address] Social History Tobacco Use Types Packs/Day Years Used Date Never Smoker Smokeless Tobacco: Never Used Comments: never Alcohol Use Standard Drinks/Week Comments Not Currently 10 (1 standard drink = 0.6 oz pure alcoh ol) Alcohol Habits Answer Date Recorded How often do you have a drink containing 4 or more times a w nez perce 06/21/2020 alcohol? How many drinks containing alcohol [...] Sign Reading Time Taken Comments Blood Pressure 115/73 06/23/2020 11:28 AM EST Pulse 87 06/22/2020 3:48 PM EST Temperature 36.7 ??C (98.1 ??F) 06/23/2020 11:28 AM EST Respiratory Rate 16 06/23/2020 11:28 AM EST Oxygen Saturation 100% 06/23/2020 7:43 AM EST Inhaled Oxygen Concentration - - Weight [...] LEONA, who presents as a transfer from [facility] for UGIB. ?? Per the pt, she presented to [facility] with 2 day history of nausea/vomiting, weakness and dizziness. She explains that after DC from [facility] [place], she admitted herself to a rehab facility near [facility] for 2 wks as she was nervous [...] SBPs increased from mid 80s to 9 . ?? OSH labs: CBC: wbc 6/ Hb 6.8/hct 22 /plts 170 CMP: Na 138/ K 3.8/ cl 102/ CO2 21/ BUN 11/ Cr 0.9 AST 51/ ALT 24/ Alk Phos 114/ Albumin 2.6/ TB 8 INR 1.4 Ammonia <10 ?? Prior history is significant for multiple recent admissions at [facility] from 04/11- 04/17 for UGIB 2/2 pre-pyloric ulcer s/p EGD and IR embolization, 04/19-04/22 for hepatic encephalopathy and 04/26-05/06 for Decompensated cirrhosis where she was discharged with prednisolone for alcoholic hepatitis. During the last admission, the team had reached out to [facility] for liver transplant and she was discharged with an outpt referral.Liver eval interrupted as pt's nguiju-[id number] (donor) tested positive for COVID. She currently [...] OSH, hemoglobinremained stable in 9s while at [facility]. She received IV Ceftriaxone for SBP prophylaxis [...] INR 1.5 1.7 Studies: UPPER GI ENDOSCOPY [facility] Endoscopy Procedure Date: 06/22/2020 10:19 AM ? Patient Name: Violet Cowan ? N: [id number] ? Date of : 1980 ? Age: 39 ? Order #: [id number] ? Instrument Name: [id number] ? Procedure: ? Upper GI endoscopy Indications: ? Hematemesis Providers: ? Madi Arreola MD, Genie Boyd ?Javid Martin, ARANZA, Vanessa ?Doc David, Bleach Packer Referring : ? Medicines: ? Monitored Anesthesia [...] ? Procedure Code(s): ?? --- Professional --- ?35328, Esophagogastroduodenoscopy, ?flexible, transoral; with biopsy, ?single or multiple ?--- Technical --- ?25527, Esophagogastroduodenoscopy, ?flexible, transoral; with biopsy, ?single or multiple CPT copyright 2019 [employer]. All rights reserved. The codes documented in this report are preliminary and upon medical billing coder review may be revised to meet current [...] take antibiotics as prescribed. Please follow-up with [facility] for ongoingtransplant evaluation. Call your doctor or [...] Follow-Up Appointments Please follow up with your [facility] transplant team Date and Time Provider and Specialty Location 07/02/20 1:00 Julieta Odell APRN , PCP [address] / [place] [address] Your Inpatient Doctor(s) at [facility]: Felix Carlson MD Your Primary Care Provider: Julieta Odell APRN [address] / [place] [address] For questions regarding this document or issues relating to this hospitalization on the Medical Service, please contact your inpatient physician through the [facility] Snow Plow Tractor Operator . Issues after hours and on weekends will be handled by the Hospitalist staff on-call. General Instructions None Discharge References/Attachments: Discharge References/Attachments None Inpatient Provider Contact Information: Charli Arriola MD Pager [phone] Electronically Signed By: Charli Arriola MD 06/23/2020 [...] take antibiotics as prescribed. Please follow-up with [facility] for ongoingtransplant evaluation. Call your doctor or [...] APRN , PCP [address] / [place] [address] Your Inpatient Doctor(s) at [facility]: Felix Carlson MD Your Primary Care Provider: Julieta Odell APRN [address] / [place] [address] For questions regarding this document or issues relating to this hospitalization on the Medical Service, please contact your inpatient physician through the [facility] Snow Plow Tractor Operator . Issues after hours and on weekends [...] spent <30 minutes (Day of Discharge Code 41708) involved in the final examination of the patient, discussion of the hospital stay, instructions for continuing care to all relevant caregivers, and preparation of discharge records, prescriptions and referral forms. Plans ? Discharge to Home ? Follow-up scheduled with PCP, GI ? Please see the Discharge Summary for complete details of any medication changes and additional plans. Iveth Jacobs - 06/23/2020 12:56 PM EST Occupational Therapy Note OT orders received and chart reviewed. Spoke with PT this morning who had a conversation with ARANZA vivar pt is independent. Will continue to monitor. ABEL Hunt Kyle Paez RN - 06/23/2020 7:01 AM EST Sanitation Superintendent IDR/ Daily Note: LOS: 1 day Primary Insurance: [employer] [place] Secondary Insurance: N/A PCP: Julieta Odell, TOWER ERECTOR HELPER [phone] Code Status: Attempt Cardiopulmonary Resuscitation - Inpatient Decision Maker: self or Nawaf Camryn would be surrogate decision maker per Reason for Hospitalization per H&P or ID: Violet Cowan is a 39 y.o. [...] with Medicine Blue Team, nursing, CM and DRAG CAR RACER. Per interdisciplinary rounds patient continues to require [...] Kyle Paez RN Office of Care Management administrative assistant coordinator Pager: [phone] Zahida White RN - 06/23/2020 3:57 AM EST OUTCOME [...] and ADLs]: Indep Surveillance [continuous indirect monitoring]: Masimo, call soni within reach, purposeful rounding Patient-specific fall prevention interventions for sensory deficits provided, if applicable: [X] No CPG GOAL OUTCOME EVALUATION: Kimmy Sheikh RN - 06/22/2020 4:43 PM EST Pt arrived to floor from ISCU at 1640. A&O x4, VSS, RA, no complaint of pain, assessment as documented. Menu provided to order dinner. Masimo applied. Safety maintained, will continue to monitor. uSsi Hernandez RN - 06/22/2020 12:20 PM EST Pt arrived to floor from PACU, pt initiated on telemetry, VSS, will continue to monitor Charli Arriola MD - 06/22/2020 7:50 AM EST [facility] (#[id number]) Progress Note Patient info: Name: Violet Cowan : 1980 PCP: Julieta Odell APRN PCP phone number: [phone] Date of Admission: 06/21/2020 ( Hospital Day [...] hours. No results for input(s): PHART, PO2ART, QML2GYR in the last 72 hours. No results for input(s): PHVEN, KET0EFO, PO2VEN, LEQ1SCP in the last 72 hours. Microbiology: 06/21/20 COVID negative Pertinent radiology/diagnostic studies: No recent imaging. ASSESSMENT: Violet Cowan is a 39 y.o. female with history of alcoholic cirrhosis, prior medically managed microprolactinoma, and LEONA who presents as a transfer from [facility] with concerns of an UGIB. ?? [...] Charli Arriola MD, PGY-1 06/22/2020 Blue Team #[id number] Associated attestation - Felix Carlson MD - [...] MD Gastroenterology PGY-6 06/22/2020 10:32 AM Pager #[phone] Maribell Isabel MD - 06/21/2020 1:33 PM EST Hospital Medicine - Admission History & Physical - BLUE Team, Pager [phone] Chief Complaint: UGIB History of Present Illness: Violet Cowan is a 39 y.o. female with history of newly diagnosed alcoholic cirrhosis (no biopsy), medically manage microprolactinoma, LEONA, who presents as a transfer from [facility] for UGIB. Per the pt, she presented to [facility] with 2 day history of nausea/vomiting, weakness and dizziness. She explains that after DC from [facility] in May, she admitted herself to a rehab facility near [facility] for 2 wks as she was nervous [...] SBPs increased from mid 80s to 9 8/58. OSH labs: CBC: wbc 6/ Hb 6.8/hct 22 /plts 170 CMP: Na 138/ K 3.8/ cl 102/ CO2 21/ BUN 11/ Cr 0.9 AST 51/ ALT 24/ Alk Phos 114/ Albumin 2.6/ TB 8 INR 1.4 Ammonia <10 Prior history is significant for multiple recent admissions at [facility] from 04/11- 04/17 for UGIB 2/2 pre-pyloric ulcer s/p EGD and IR embolization, 04/19-04/22 for hepatic encephalopathy and 04/26-05/06 for Decompensated cirrhosis where she was discharged with prednisolone for alcoholic hepatitis. During the last admission, the team had reached out to [facility] for liver transplant and she was discharged with an outpt referral.Liver eval interrupted as pt's qlhrni-kfj-zzp (donor) tested positive for COVID. She currently [...] on phone: None Gets together: None Attends restorationism service: None Active member of club or [...] LEONA who presents as a transfer from [facility] with concerns of an UGIB. Given [...] Internal Medicine 06/21/2020 Blue Team Pager - #[phone] Associated attestation - Felix Carlson MD - [...] monitoring required during toileting and ADLs]: Eyes loss prevention coordinator soni Surveillance [continuous indirect monitoring]: Call soni [...] inpatient PT needs. Alivia Mustafa, PT Pager #[phone] Physical Therapy Inpatient Rehabilitation Initial Assessments - [...] Admission order reviewed. Primary Insurance on file: [employer] [place] Secondary Insurance on file: n/a Primary care provider on file: Julieta Odell, TOWER ERECTOR HELPER [phone] Advance Directive on file and Code Status: Attempt Cardiopulmonary Resuscitation - Inpatient. No AD on file. If AD's have not been completed Nawaf Camryn would be surrogate decision maker per [place] surrogate decision making law. Any patient receiving care at [facility] must abide by [place] law. The hierarchy for surrogate decision making [...] (i) The agent with financial power of day care director or a conservator appointed in accordance with RSA 464-A. (j) The guardian of the patient???s estate. Patient???s Functional Status: Independent Living Situation: Lives w/ and son in 2-story home [address] [facility] [address] Supports: Family Assessment: Patient with no apparent RNCM/SW needs at this time. No housing, transportation, insurance, resources concerns identified at this time. Supports in place to achieve a safe post-hospital transition. No identified barriers to accessing necessary care and/or follow-up after discharge. Plan: Patient to d/c to home via family when medically ready. administrative assistant coordinator/Multi Media Specialist will continue to follow patient???s progress and remain available if situation changes for coordination of care, psychosocial support and/or discharge planning. Moi Murillo, RN Pager [phone] Plan of Care - Karmen Jones RN - 06/22/2020 3:56 AM EST Problem: Patient Care Overview Goal: Plan of Care Review Outcome: Ongoing (Interventions Implemented as Appropriate) 06/22/20 0032 Coping/Psychosocial Plan Of Care Reviewed With patient Plan of Care Review Progress no change OUTCOME EVALUATION NOTE: OUTCOME SUMMARY: Pt A+Ox4. Pt hypotensive 80s/40s around 2200, MD notified, 500cc NS bolus ordered and administered [...] Outcome: Ongoing (Interventions Implemented as Appropriate) 06/21/20 17006/21/20199906/22/20 0200 Daily Care Interventions Self-Care Promotion -- -- [...] at which point she was transferred to [facility] for inpatient liver transplant evaluation. Since discharge [...] home with her and 4 year old. Hersister in law has been in the process of work up for living donor liver transplant at [facility]. ROS: 10 systems reviewed and positive for [...] file Gets together: Not on file Attends restorationism service: Not on file Active member of [...] - Maintain active T&S - NPO at NE for likely EGD tomorrow - Continue PPI [...] MD Gastroenterology PGY-5 06/21/2020 4:54 PM Pager #[phone] Associated attestation - Siddhartha Arreola MD - [...] signs of worsening anemia. Madi Arreola MD Hot Repairmanburr grinder Co-Director, [facility] Section of Gastroenterology [place] [address] documented in this encounter Plan of Treatment [...] questions regarding this report, please contact t nirali number below. Electronically signed by: Cici Carbone MD, [facility] ([phone]), at 10:56 AM ? Cici Carbone, Staff Physician Electronically Signed Final Report ?? 11:03 am Narrative 06/23/2020 11:03 AM EST Abdominal ? (Signed Final 06/23/2020 11:03 am) PATIENT INFO: ID #: ? [id number] ?: ??[birth year] (39 yrs)(F) Name: ? VIOLET COWAN ? Visit Date: 06/23/2020 10:23 am PERFORMED BY: Performed By: ? Mayra Davis RDMS Attending: ?Raf HERNANDEZ, Cici Mcdonald Referred By: ?GULSHAN DOCKERY Location: ? [place] SERVICE(S) PROVIDED: ??UABDLIM - Abdominal Limited Survey Si ngle ? [id number] ??Organ or Quadrant - [id number] INDICATIONS: ??patient with liver cirrhosis; would b [...] 11:0 3 am) PATIENT INFO: ID #: [id number] : [birth year] (39 y rs)(F) Name: VIOLET COWAN Visit Date: 10:23 am PERFORMED BY: Performed By: Mayra Davis RDMS Attending: Cici Carbone MD Referred By: GULSHAN DOCKERY Location: [place] SERVICE(S) PROVIDED: UABDLIM - Abdominal Limited Survey [facility] [address] Organ or Quadrant - [id number] INDICATIONS: patient with liver cirrhosis; would rian [...] Electronically signed by: Cici Carbone MD, [facility] [place] ([phone]), at 10:56 AM Cici Carbone, Staff Physician Electronically Signed Final Report 06/23 11:03 am Gulshan Dockery MD IMG US GEN ORDERABLES (ABNORMAL) Differential, Automated (06/23/2020 4:44 AM EST) [facility] Method Time Signature Neutrophils % 85.8 % [facility] Neutr Abs (ANC) 6.83 (H) 1.70 - [facility] [address] [facility] x10(3)/[facility] LABORATORY Lymphocytes % 9.2 % [facility] Lymphocytes Abs 0.7 (L) 0.9 - 3.2 [facility] x10(3)/[facility] LABORATORY Monocytes % 4.4 % [facility] Monocyte Abs 0.4 0.3 - 0.9 [facility] x10(3)/[facility] LABORATORY Eosinophils % 0.0 % [facility] Eosinophils Abs 0.0 0.0 - 0.4 [facility] x10(3)/[facility] LABORATORY Basophils % 0.1 % [facility] Basophils Abs 0.0 0.0 - 0.1 [facility] x10(3)/[facility] LABORATORY Immature Gran % 0.50 % [facility] Comment: Immature granulocytes(IG's)percentage an d absolute count will include metamyelocytes, myelocytes, and promyelo cytes. Blood smears from CBCs yielding IG's will be scanned manually for concor dance. If this scan disagrees with the automated IG or if promyelocytes are not ed, a manual differential will be performed. Josey Gran Abs 0.04 0.00 - 0.04 x10(3)/[facility] LABORATORY Specimen Anatomical Collection Method Collection Time Receive d Time (Source) Location / / Volume Laterality Blood specimen 06/23/2020 4:44 AM 020 5:09 (specimen) EST AM EST Resulting Agency Comment Spec In Lab Charli Arriola MD HEMATOLOGY ORDERABLES Performing Organization Address City/State/[place] [address] (ABNORMAL) Hemogram (06/23/2020 4:44 AM EST) Analysis Performed At Patho logist Time Signature WBC 8.0 4.0 - 9.5 [facility] LABORATORY RBC 3.68 (L) 4.00 - [place] 5.21 [facility] x10(6)/[facility] LABORATORY Hemoglobin 9.2 (L) 11.7 - [facility] 15.5 gm/dL [facility] LABORATORY Hematocrit 30.5 (L) 35.7 - [facility] 45.8 % [facility] LABORATORY MCV 82.9 82.6 - [facility] 94.4 [facility] LABORATORY MCH 25.0 (L) 27.1 - [place] 32.0 pg [facility] LABORATORY MCHC 30.2 (L) 31.7 - [facility] [place] 35.0 gm/dL [facility]ORATORY Platelets 187 145 - 357 [facility] x10(3)/[facility] LABORATORY RDWSD 51.4 (H) 37.0 - [place] 46.0 [facility] LABORATORY RDWCV 16.9 (H) 11.5 - [facility] [place] 14.1 % [facility] LABORATORY MPV 9.8 7.6 - 12.9 [facility] LABORATORY nRBC % Auto 0.0 % [facility] nRBC Abs Auto 0.000 0.000 - [place] [address] [facility] x10(3)/[facility] LABORATORY Specimen Anatomical Collection Method Collection Time Receive d Time (Source) Location / / Volume Laterality Blood specimen 06/23/2020 4:44 AM 020 5:09 (specimen) EST AM EST Resulting Agency Comment Spec In Lab Charli Arriola MD HEMATOLOGY ORDERABLES Performing Organization Address City/State/[place] [address] (ABNORMAL) Basic Metabolic Panel (non-fasting) (06/23/2020 4:44 AM EST) P athologist Signature Glucose Lvl 156 65 - 199 [facility] mg/dL [facility]ORY Comment: Diabetes: >=200 mg/dL plus symp toms BUN 10 8 - 18 mg/dL [facility] Creatinine 0.83 0.70 - 1.20 mg/dL [facility] Sodium 138 135 - 145 mmol/L [facility] Potassium 4.3 3.5 - 5.0 mmol/L [facility] Comment: Please note: ??Patients with WBC >100,00 0 may have falsely elevated Potassium levels. ??For accurate Potassium quantif ication in these patients send serum separator tube (gold top) for subsequent determinations. ??Contact the Clinical Chemistry Laboratory if there are any qu estions. Chloride 114 (H) 98 - 107 mmol/L [facility] CO2 16 (L) 22 - 31 mmol/L [facility] Anion Gap 8 5 - 15 mmol/L [facility] LABOR[facility]ORY Calcium 8.5 8.5 - 10.5 mg/dL [facility] Estimated GFR 88 >=60 mL/min/1.73 m?? [facility] Comment: The eGFR was calculated using the CKD-EP I equation. As with all creatinine based estimates of kidney function, eGFR values calculated with the CKD-EPI equation are not accurate in patients wi th acute kidney failure, extremes of body mass or the acutely ill. [email or web address] eGFR 102 >=60 mL/min/1.73 m?? [facility] Comment: The eGFR was calculated using the CKD-EP I equation. As with all creatinine based estimates of kidney function, eGFR values calculated with the CKD-EPI equation are not accurate in patients wi th acute kidney failure, extremes of body mass or the acutely ill. [email or web address]://[email or web address]-FermenSys/[facility]nkf Specimen Anatomical Collection Method Collection Time Receive d Time (Source) Location / / Volume Laterality Blood specimen 06/23/2020 4:44 AM 020 5:09 (specimen) EST AM EST Resulting Agency Comment Spec In Lab Gulshan Dockery MD CHEMISTRY ORDERABLES Performing Organization Address City/[facility]/[place] [address] (ABNORMAL) Hepatic Function Panel (06/22/2020 1:58 PM EST) P athologist Signature Total Protein 5.9 (L) 6.1 - 8.0 [facility] [place] gm/dL [facility] Albumin 2.9 (L) 3.2 - 5.2 [place] gm/dL [facility] LABORATORY AST 54 (H) 0 - 30 [facility] [place] unit/L [facility] ALT 18 0 - 30 [facility] [place] unit/L [facility]OR[facility]ORY Alk Phos 106 (H) 35 - 105 [facility] [place] unit/L [facility] LABORATORY Total 8.5 (H) 0.2 - 1.3 [facility] Bilirubin mg/dL [facility] LABORATORY Bili, Direct 5.5 (H) 0.0 - 0.3 [facility] [place] mg/dL [facility] LABORATORY Specimen Anatomical Collection Method Collection Time Receive d Time (Source) Location / / Volume Laterality Blood specimen 06/22/2020 1:58 PM 020 2:04 (specimen) EST PM EST Resulting Agency Comment Spec In Lab Gulshan Dockery MD CHEMISTRY ORDERABLES Performing Organization Address City/[facility]/[place] [address] (ABNORMAL) Hemoglobin and Hematocrit, blood (06/22/2020 1:58 PM EST) P athologist Signature Hemoglobin 10.3 (L) 11.7 - [place] 15.5 gm/dL [facility] LABORATORY Hematocrit 32.7 (L) 35.7 - [place] 45.8 % [facility] LABORATORY Specimen Anatomical Collection Method Collection Time Receive d Time (Source) Location / / Volume Laterality Blood specimen 06/22/2020 1:58 PM 020 2:04 (specimen) EST PM EST Resulting Agency Comment Spec In Lab Gulshan Dockery MD HEMATOLOGY ORDERABLES Performing Organization Address City/[facility]/[place] [address] (ABNORMAL) APTT (06/22/2020 1:58 PM EST) P athologist Signature PTT 42 (H) 25 - 37 sec [facility] Comment: The PTT is NOT [...] Dockery MD HEMATOLOGY ORDERABLES Performing Organization Address City/[facility]/[place] [address] (ABNORMAL) Prothrombin Time (06/22/2020 1:58 PM EST) athologist Signature PT 17.6 (H) 9.4 - 12.5 [facility] LABORATORY INR 1.5 [facility] Comment: An INR <2.0 indicates [...] Dockery MD HEMATOLOGY ORDERABLES Performing Organization Address City/[facility]/[place] [address] Surgical Pathology Report (06/22/2020 11:06 AM EST) Component Value Ref Test Analysis [facility] Method Time Signature Surgical [id number] ? Location: 1EST; 0133; A [facility] Report The signing pathologist has (i) examined [...] Gillespie MD Verified: ??07/03/2020 ?Pathologist Performed at: ??-[facility] Dept. of Pathology, [place], [place] ?Surgic al Pathology DIAGNOSIS Stomach, ??biopsy: Gastric antral and fundic gl and mucosa with focal active inflammation, foveolar hyperplasia and nonspecific reactive epithelial changes. A fragment of fundic gland mucosa with features of fundic gl and polyp. Electronically signed by: ??Jessica Gillespie MD Verified: ??07/02/2020 ?Pathologist Performed at: ??-[facility] Dept. of Pathology, [place], [place] SPECIMEN(S) SUBMITTED A - gastric bx's. [...] MD PATHOLOGY/CYTOLOGY ORDERABLE S Performing Organization Address City/[facility]/ZIP Code Phon e Number [address] Specimen to Pathology (06/22/2020 11:06 AM EST) Specimen Anatomical Collection Method Collection Time Receive d Time (Source) Location / / Volume Laterality AP Specimen 06/22/2020 11:06 06/22/2020 AM EST 11:06 AM EST Narrative [facility] LABORAT ORY - 06/22/2020 11:06 AM EST Specimen requisition ordered. ??Separate Pathology report to follow Gulshan Dockery MD PATHOLOGY/CYTOLOGY ORDERABLE S Performing Organization Address City/State/[place] [address] UPPER GI ENDOSCOPY (06/22/2020 10:19 AM EST) Component Value Ref Test Analysis Performed At [facility] gist Range Method Time Signature UPPER GI [facility] ENDOSCOPY Endoscopy Procedure Date: 06/22/2020 10:19 AM ? Patient Name: Violet Cowan ? Date of : 1980 ? Age: 39 ? Order #: [id number] ? Instrument Name: [id number] ? Procedure: ? Upper GI endoscopy Indications: ? Hematemesis Providers: ? Madi Arreola MD, Genie Boyd ? Javid Martin RN, Vanessa ? oDc David Bleach Packer Referring : ? Medicines: ? Monitored Anesthesia [...] the ? procedure by the physician, t he nurse ? and the anesthesiologist. The ? [...] reactions. The ? Endoscope was introduced thro [facility] the ? mouth, and advanced to the [facility] ? of duodenum. The patient tole rated ? the procedure well. The upper GI ? endoscopy was accomplished wi out ? difficulty. The patient genaro ated the [...] Procedure Code(s): ?? --- Professional --- ? 74792, Esophagogastroduodenos copy, ? flexible, transoral; with bio psy, ? single or multiple ? --- Technical --- ? 17243, Esophagogastroduodenos copy, ? flexible, transoral; with bio psy, ? single or multiple CPT copyright 2019 [employer]. All rights reserved. The codes documented in this report are preliminary and upon medical billing coder review may be revised to meet current [...] P athologist Signature Neutrophils % 51.6 % [facility] LABORATORY Neutr Abs (ANC) 3.13 1.70 - [facility] [address] [facility] x10(3)/[facility] LABORATORY Lymphocytes % 36.5 % [facility] LABORATORY Lymphocytes Abs 2.2 0.9 - 3.2 [facility] x10(3)/[facility] LABORATORY Monocytes % 8.6 % [facility] LABORATORY Monocyte Abs 0.5 0.3 - 0.9 [facility] x10(3)/[facility] LABORATORY Eosinophils % 2.0 % [facility] LABORATORY Eosinophils Abs 0.1 0.0 - 0.4 [facility] x10(3)/[facility] LABORATORY Basophils % 1.0 % [facility] LABORATORY Basophils Abs 0.1 0.0 - 0.1 [facility] x10(3)/[facility] LABORATORY Immature Gran % 0.30 % [facility] LABORATORY Comment: Immature granulocytes(IG's)percentage an d absolute count will include metamyelocytes, myelocytes, and promyelo cytes. Blood smears from CBCs yielding IG's will be scanned manually for concor dance. If this scan disagrees with the automated IG or if promyelocytes are not ed, a manual differential will be performed. Josey Gran Abs 0.02 0.00 - 0.04 x10(3)/[facility] Y [facility] LABORATORY Specimen Anatomical Collection Method Collection Time Receive d Time (Source) Location / / Volume Laterality Blood specimen 06/22/2020 1:03 AM 020 1:13 (specimen) EST AM EST Resulting Agency Comment Spec In Lab Maribell Butler MD HEMATOLOGY ORDERABLES Performing Organization Address City/State/[place] [address] (ABNORMAL) Hemogram (06/22/2020 1:03 AM EST) Analysis Performed At Patho logist Time Signature WBC 6.1 4.0 - 9.5 [facility] LABORATORY RBC 3.55 (L) 4.00 - [place] [address] [facility] x10(6)/[facility] LABORATORY Hemoglobin 9.1 (L) 11.7 - [facility] 15.5 gm/dL [facility] LABORATORY Hematocrit 29.3 (L) 35.7 - [facility] 45.8 % [facility] LABORATORY MCV 82.5 (L) 82.6 - [facility] 94.4 [facility] LABORATORY MCH 25.6 (L) 27.1 - [place] 32.0 pg [facility] LABORATORY MCHC 31.1 (L) 31.7 - [facility] 35.0 gm/dL [facility] LABORATORY Platelets 171 145 - 357 [facility] x10(3)/[facility] LABORATORY RDWSD 49.7 (H) 37.0 - [facility] 46.0 [facility] LABORATORY RDWCV 16.6 (H) 11.5 - [facility] [place] 14.1 % [facility] LABORATORY MPV 10.0 7.6 - 12.9 [facility] LABORATORY nRBC % Auto 0.0 % [facility] LABORATORY nRBC Abs Auto 0.000 0.000 - [facility] [place] [address] [facility] x10(3)/[facility] LABORATORY Specimen Anatomical Collection Method Collection Time Receive d Time (Source) Location / / Volume Laterality Blood specimen 06/22/2020 1:03 AM 020 1:13 (specimen) EST AM EST Resulting Agency Comment Spec In Lab Maribell Butler MD HEMATOLOGY ORDERABLES Performing Organization Address City/State/ZIP [place] [address] (ABNORMAL) Basic Metabolic Panel (non-fasting) (06/22/2020 1:03 AM EST) P athologist Signature Glucose Lvl 155 65 - 199 [facility] mg/dL [facility] LABORATORY Comment: Diabetes: >=200 mg/dL plus symp toms BUN 11 8 - 18 mg/dL [facility] LABORATORY Creatinine 0.91 0.70 - 1.20 mg/dL [facility] LABORATORY Sodium 136 135 - 145 mmol/L [facility] LABORATORY Potassium 4.3 3.5 - 5.0 mmol/L [facility] LABORATORY Comment: Please note: ??Patients with WBC >100,00 0 may have falsely elevated Potassium levels. ??For accurate Potassium quantif ication in these patients send serum separator tube (gold top) for subsequent determinations. ??Contact the Clinical Chemistry Laboratory if there are any qu estions. Chloride 111 (H) 98 - 107 mmol/L [facility] LABORATORY CO2 18 (L) 22 - 31 mmol/L [facility] LABORATORY Anion Gap 7 5 - 15 mmol/L [facility] LABORATORY Calcium 8.2 (L) 8.5 - 10.5 mg/dL [facility] LABORATORY Estimated GFR 78 >=60 mL/min/1.73 m?? [facility] LABORATORY Comment: The eGFR was calculated using the CKD-EP I equation. As with all creatinine based estimates of kidney function, eGFR values calculated with the CKD-EPI equation are not accurate in patients wi th acute kidney failure, extremes of body mass or the acutely ill. [email or web address] eGFR 91 >=60 mL/min/1.73 m?? [facility] LABORATORY Comment: The eGFR was calculated using the CKD-EP I equation. As with all creatinine based estimates of kidney function, eGFR values calculated with the CKD-EPI equation are not accurate in patients wi th acute kidney failure, extremes of body mass or the acutely ill. [email or web address] Specimen Anatomical Collection Method Collection Time Receive d Time (Source) Location / / Volume Laterality Blood specimen 06/22/2020 1:03 AM 020 1:13 (specimen) EST AM EST Resulting Agency Comment Spec In Lab Gulshan Dockery MD CHEMISTRY ORDERABLES Performing Organization Address City/State/ZIP Code Phon e Number [address] Differential, Automated (06/21/2020 10:19 PM EST) P athologist Signature Neutrophils % 54.8 % [facility] LABORATORY Neutr Abs (ANC) 3.42 1.70 - [facility] [address] [facility] x10(3)/[facility] LABORATORY Lymphocytes % 33.8 % [facility] LABORATORY Lymphocytes Abs 2.1 0.9 - 3.2 [facility] x10(3)/[facility] LABORATORY Monocytes % 8.8 % [facility] Monocyte Abs 0.6 0.3 - 0.9 [facility] x10(3)/[facility] LABORATORY Eosinophils % 1.3 % [facility] LABORATORY Eosinophils Abs 0.1 0.0 - 0.4 [facility] x10(3)/[facility] LABORATORY Basophils % 1.0 % [facility] LABORATORY Basophils Abs 0.1 0.0 - 0.1 [facility] x10(3)/[facility] LABORATORY Immature Gran % 0.30 % [facility] LABORATORY Comment: Immature granulocytes(IG's)percentage an d absolute count will include metamyelocytes, myelocytes, and promyelo cytes. Blood smears from CBCs yielding IG's will be scanned manually for concor dance. If this scan disagrees with the automated IG or if promyelocytes are not ed, a manual differential will be performed. Josey Gran Abs 0.02 0.00 - 0.04 x10(3)/[facility] MAR Y [facility] LABORATORY Specimen Anatomical Collection Method Collection Time Receive d Time (Source) Location / / Volume Laterality Blood specimen 06/21/2020 10:19 0 (specimen) PM EST 10:23 PM EST Resulting Agency Comment Spec In Lab Maribell Butler MD HEMATOLOGY ORDERABLES Performing Organization Address City/State/ZIP Code Phon e Number [address] (ABNORMAL) Hemogram (06/21/2020 10:19 PM EST) Analysis Performed At Patho logist Time Signature WBC 6.2 4.0 - 9.5 [facility] LABORATORY RBC 3.67 (L) 4.00 - [facility] [address] [facility] x10(6)/[facility] LABORATORY Hemoglobin 9.5 (L) 11.7 - [facility] 15.5 gm/dL [facility] LABORATORY Hematocrit 30.1 (L) 35.7 - [facility] 45.8 % [facility] LABORATORY MCV 82.0 (L) 82.6 - [facility] 94.4 [facility] LABORATORY MCH 25.9 (L) 27.1 - [facility] 32.0 pg [facility] LABORATORY MCHC 31.6 (L) 31.7 - [facility] 35.0 gm/dL [facility] LABORATORY Platelets 170 145 - 357 [facility] x10(3)/[facility] LABORATORY RDWSD 49.5 (H) 37.0 - [facility] 46.0 [facility] LABORATORY RDWCV 16.5 (H) 11.5 - [facility] 14.1 % [facility] LABORATORY MPV 9.6 7.6 - 12.9 [facility] LABORATORY nRBC % Auto 0.0 % [facility] LABORATORY nRBC Abs Auto 0.000 0.000 - [facility] [address] [facility] x10(3)/[facility] LABORATORY Specimen Anatomical Collection Method Collection Time Receive d Time (Source) Location / / Volume Laterality Blood specimen 06/21/2020 10:19 0 (specimen) PM EST 10:23 PM EST Resulting Agency Comment Spec In Lab Maribell Butler MD HEMATOLOGY ORDERABLES Performing Organization Address City/State/Z[place] [address] COVID-19 PCR (06/21/2020 5:20 PM EST) Patholo gist Method Time Signature SARS-CoV-2 Not Detected Not Detected [facility] RNA PCR [facility] LABORATORY Comment: This result should be interpreted [...] using the Simplexa COVID-19 Direct Assay by Combinature Biopharmlopez moise as authorized by the FDA issued [...] Department of Pathology and Laboratory Medicine at [facility], certified under the Clinical Laboratory Improvement Amendmen [...] r [employer] (https://www.cdc.gov/coronavirus/2019-nc ov/hcp/index.html). SARS-CoV-2 Source METER TESTER POLYPHASE Swab [facility] LABORATORY Specimen (Source) Anatomical Collection Method Collection Time Re ceived Time Location / / Volume Laterality Nasopharyngeal swab 06/21/2020 5:20 06/21 (specimen) PM EST 5:53 PM EST Comment: Symptoms->Surveillance Resulting Agency Comment Spec In Lab Felix Carlson MD MICROBIOLOGY - GENERAL ORDER MARK Performing Organization Address City/[facility]/[place] [address] EKG 12 Lead (06/21/2020 4:43 PM EST) [facility] gist Method Time Signature Ventricular rate 74 BPM MUSE SYSTEM Atrial Rate 74 BPM MUSE SYSTEM P-R Interval 136 ms MUSE SYSTEM QRS Duration 72 ms MUSE SYSTEM Q-T Interval 420 ms MUSE SYSTEM QTC Calculated 466 ms MUSE SYSTEM (Bezet) Calculated P Corn -4 degrees MUSE SYSTEM Calculated R Corn 68 degrees MUSE SYSTEM Calculated T Corn 15 degrees MUSE SYSTEM INTERPRETATION Normal sinus [...] Dockery MD ECG ORDERABLES Performing Organization Address City/[facility]/ZIP Code Phon e Number MUSE SYSTEM POCT Glucose (06/21/2020 3:45 PM EST) athologist Signature POC Glucose 92 65 - 199 [facility] mg/dL [facility] LABORATORY Comment: Supplemental ranges: <140 mg/dL before meals <180 mg/dL all other times of the day Specimen Anatomical Collection Method Collection Time Receive d Time (Source) Location / / Volume Laterality Blood specimen 06/21/2020 3:45 PM 020 3:45 (specimen) EST PM EST Gulshan Dockery MD POINT OF CARE TEST ORDERABLE S Performing Organization Address City/[facility]/[place] [address] ABORH Recheck Status (06/21/2020 3:40 PM EST) [facility] Method Time Signature ABORH Type Completed [facility] LABORATORY Specimen Anatomical Collection Method Collection Time Receive d Time (Source) Location / / Volume Laterality Blood specimen 06/21/2020 3:40 PM 020 4:13 (specimen) EST PM EST Resulting Agency Comment Spec In Lab Maribell Butler MD BLOOD BANK ORDERABLES Performing Organization Address City/[facility]/ZIP Code Phon e Number [address] Antibody screen (06/21/2020 3:40 PM EST) Patholo gist Method Time Signature Ab Screen Negative [facility] LABORATORY Expires at 06/24/2020 [facility] [id number] on: [facility] LABORATORY Specimen Anatomical Collection Method Collection Time Receive d Time (Source) Location / / Volume Laterality Blood specimen 06/21/2020 3:40 PM 020 4:13 (specimen) EST PM EST Resulting Agency Comment Spec In Lab Maribell Butler MD BLOOD BANK ORDERABLES Performing Organization Address City/[facility]/ZIP Code Phon e Number [address] ABO/Rh Typing (06/21/2020 3:40 PM EST) P athologist Signature ABORh Type A Pos [facility] LABORATORY Specimen Anatomical Collection Method Collection Time Receive d Time (Source) Location / / Volume Laterality Blood specimen 06/21/2020 3:40 PM 020 4:13 (specimen) EST PM EST Resulting Agency Comment Spec In Lab Maribell Butler MD BLOOD BANK ORDERABLES Performing Organization Address City/[facility]/ZIP Code Phon e Number [address] Differential, Automated (06/21/2020 3:40 PM EST) P athologist Signature Neutrophils % 52.5 % [facility] LABORATORY Neutr Abs (ANC) 3.77 1.70 - [facility] [address] [facility] x10(3)/[facility] LABORATORY Lymphocytes % 35.9 % [facility] LABORATORY Lymphocytes Abs 2.6 0.9 - 3.2 [facility] x10(3)/[facility] LABORATORY Monocytes % 9.6 % [facility] LABORATORY Monocyte Abs 0.7 0.3 - 0.9 [facility] x10(3)/[facility] LABORATORY Eosinophils % 1.1 % [facility] LABORATORY Eosinophils Abs 0.1 0.0 - 0.4 [facility] x10(3)/[facility] LABORATORY Basophils % 0.8 % [facility] LABORATORY Basophils Abs 0.1 0.0 - 0.1 [facility] x10(3)/[facility] LABORATORY Immature Gran % 0.10 % [facility] LABORATORY Comment: Immature granulocytes(IG's)percentage an d absolute count will include metamyelocytes, myelocytes, and promyelo cytes. Blood smears from CBCs yielding IG's will be scanned manually for concor dance. If this scan disagrees with the automated IG or if promyelocytes are not ed, a manual differential will be performed. Josey Gran Abs 0.01 0.00 - 0.04 x10(3)/[facility] MAR Y [facility] LABORATORY Specimen Anatomical Collection Method Collection Time Receive d Time (Source) Location / / Volume Laterality Blood specimen 06/21/2020 3:40 PM 020 3:59 (specimen) EST PM EST Resulting Agency Comment Spec In Lab Maribell Butler MD HEMATOLOGY ORDERABLES Performing Organization Address City/State/[place] [address] (ABNORMAL) Hemogram (06/21/2020 3:40 PM EST) Analysis Performed At Patho logist Time Signature WBC 7.2 4.0 - 9.5 [facility] x10(3)/[facility] LABORATORY RBC 3.79 (L) 4.00 - [facility] [address] [facility] x10(6)/[facility] LABORATORY Hemoglobin 9.8 (L) 11.7 - [facility] 15.5 gm/dL [facility] LABORATORY Hematocrit 31.2 (L) 35.7 - [facility] 45.8 % [facility] LABORATORY MCV 82.3 (L) 82.6 - [facility] 94.4 [facility] LABORATORY MCH 25.9 (L) 27.1 - [place] 32.0 pg [facility] LABORATORY MCHC 31.4 (L) 31.7 - [place] 35.0 gm/dL [facility] LABORATORY Platelets 175 145 - 357 [facility] x10(3)/[facility] LABORATORY RDWSD 49.9 (H) 37.0 - [place] 46.0 [facility] LABORATORY RDWCV 16.5 (H) 11.5 - [facility] [place] 14.1 % [facility] LABORATORY MPV 9.7 7.6 - 12.9 [facility] LABORATORY nRBC % Auto 0.0 % [facility] LABORATORY nRBC Abs Auto 0.000 0.000 - [place] [address] [facility] x10(3)/[facility] LABORATORY Specimen Anatomical Collection Method Collection Time Receive d Time (Source) Location / / Volume Laterality Blood specimen 06/21/2020 3:40 PM 020 3:59 (specimen) EST PM EST Resulting Agency Comment Spec In Lab Maribell Butler MD HEMATOLOGY ORDERABLES Performing Organization Address City/State/[place] [address] (ABNORMAL) APTT (06/21/2020 3:40 PM EST) athologist Signature PTT 40 (H) 25 - 37 sec [facility] LABORATORY Comment: The PTT is NOT [...] Resulting Agency Comment Spec In Lab Felix Carlosn MD HEMATOLOGY ORDERABLES Performing Organization Address City/State/[place] [address] (ABNORMAL) Prothrombin Time (06/21/2020 3:40 PM EST) athologist Signature PT 19.4 (H) 9.4 - 12.5 [facility] LABORATORY INR 1.7 [facility] LABORATORY Comment: An INR <2.0 indicates [...] Organization Address City/State/ZIP Code Phon e Number [address] Phosphorus (06/21/2020 3:40 PM EST) athologist Signature Phosphorus 3.2 2.5 - 4.5 [facility] LABORATORY Specimen Anatomical Collection Method Collection Time Receive d Time (Source) Location / / Volume Laterality Blood specimen 06/21/2020 3:40 PM 020 3:59 (specimen) EST PM EST Resulting Agency Comment Spec In Lab Felix Carlson MD CHEMISTRY ORDERABLES Performing Organization Address City/State/[place] [address] (ABNORMAL) Hepatic Function Panel (06/21/2020 3:40 PM EST) athologist Signature Total Protein 5.7 (L) 6.1 - 8.0 [facility] [place] gm/dL [facility] LABORATORY Albumin 2.9 (L) 3.2 - 5.2 [facility] [place] gm/dL [facility] LABORATORY AST 48 (H) 0 - 30 [place] unit/L [facility] LABORATORY ALT 17 0 - 30 [facility] [place] unit/L [facility] LABORATORY Alk Phos 104 35 - 105 [facility] [place] unit/L [facility] LABORATORY Total 9.2 (H) 0.2 - 1.3 [facility] Bilirubin mg/dL [facility] LABORATORY Bili, Direct 5.4 (H) 0.0 - 0.3 [facility] mg/dL [facility] LABORATORY Specimen Anatomical Collection Method Collection Time Receive d Time (Source) Location / / Volume Laterality Blood specimen 06/21/2020 3:40 PM 020 3:59 (specimen) EST PM EST Resulting Agency Comment Spec In Lab Felix Carlson MD CHEMISTRY ORDERABLES Performing Organization Address City/[facility]/ZIP Code Phon e Number [address] Magnesium (06/21/2020 3:40 PM EST) P athologist Signature Magnesium 0.78 0.69 - 1.07 [facility] mmol/L [facility] LABORATORY Specimen Anatomical Collection Method Collection Time Receive d Time (Source) Location / / Volume Laterality Blood specimen 06/21/2020 3:40 PM 020 3:59 (specimen) EST PM EST Resulting Agency Comment Spec In Lab Felix Carlson MD CHEMISTRY ORDERABLES Performing Organization Address City/[facility]/ZIP [facility] Phon e Number [address] (ABNORMAL) Basic Metabolic Panel (non-fasting) (06/21/2020 3:40 PM EST) P athologist Signature Glucose Lvl 98 65 - 199 [facility] mg/dL [facility] LABORATORY Comment: Diabetes: >=200 mg/dL plus symp toms BUN 10 8 - 18 mg/dL [facility] LABORATORY Creatinine 0.82 0.70 - 1.20 mg/dL [facility] LABORATORY Sodium 138 135 - 145 mmol/L [facility] LABORATORY Potassium 4.8 3.5 - 5.0 mmol/L [facility] LABORATORY Comment: Please note: ??Patients with WBC >100,00 0 may have falsely elevated Potassium levels. ??For accurate Potassium quantif ication in these patients send serum separator tube (gold top) for subsequent determinations. ??Contact the Clinical Chemistry Laboratory if there are any qu estions. Chloride 110 (H) 98 - 107 mmol/L [facility] LABORATORY CO2 19 (L) 22 - 31 mmol/L [facility] LABORATORY Anion Gap 9 5 - 15 mmol/L [facility] LABORATORY Calcium 8.6 8.5 - 10.5 mg/dL [facility] LABORATORY Estimated GFR 89 >=60 mL/min/1.73 m?? [facility] LABORATORY Comment: The eGFR was calculated using the CKD-EP I equation. As with all creatinine based estimates of kidney function, eGFR values calculated with the CKD-EPI equation are not accurate in patients wi th acute kidney failure, extremes of body mass or the acutely ill. [email or web address] eGFR 103 >=60 mL/min/1.73 m?? [facility] LABORATORY Comment: The eGFR was calculated using the CKD-EP I equation. As with all creatinine based estimates of kidney function, eGFR values calculated with the CKD-EPI equation are not accurate in patients wi th acute kidney failure, extremes of body mass or the acutely ill. [email or web address] Specimen Anatomical Collection Method Collection Time Receive d Time (Source) Location / / Volume Laterality Blood specimen 06/21/2020 3:40 PM 020 3:59 (specimen) EST PM EST Resulting Agency Comment Spec In Lab Felix Carlson MD CHEMISTRY ORDERABLES Performing Organization Address City/State/ZIP Code Phon e Number [place] [id number] documented in this encounter Visit Diagnoses Diagnosis Gastrointestinal hemorrhage, unspecified gastrointestinal hemorrhage type UGIB (upper gastrointestinal bleed) Hemorrhage of gastrointestinal tract, un specified documented in this encounter Admitting Diagnoses Diagnosis UGIB [...] on 06/21/20 at 1730, Last dose on Tue06/25/20 at 1730, Administer over 30 Minutes, Indication [...] Given 06/21/2020 4:08 PM EST 1,000 mcg magnesium sulfate 2 g in sterile water New Bag 06/21/2020 11:4 1 PM EST 2 g 25 mL/hr 50 mL 2 g, Intravenous, ONCE, 1 dose, On 06/21/20 at 2330, Administer over 120 Minutes multivitamin with minerals (THERA-M) tablet Given 06/02 8:15 AM EST 1 tablet 1 tablet 1 tablet, Oral, DAILY, First dose on Tue06/21/20 at 1630, Until Discontinued, Routine Given 06/22/2020 9:52 AM EST 1 tablet Given 06/21/2020 4:08 PM EST 1 tablet octreotide acetate Continued 06/22/2020 11:22 AM EST 50 mcg/hr 1 0 mL/hr (SandoSTATIN) 500 mcg in sodium chloride 0.9% 100 mL infusion 50 mcg/hr (10 mL/hr), Intravenous, CONTINUOUS, Starting on 06/21/20 at 1630, Until 06/22/20 at 1242 [facility] 06/22/2020 12:21 AM EST 50 mcg/hr 10 mL/hr [facility] 06/21/2020 4:06 PM EST 50 mcg/hr 10 mL/hr ondansetron (ZOFRAN) injection 4-8 mg 4-8 mg, Intravenous, EVERY 8 HOURS PRN, Starting on 06/21/20 at 1531, Until 06/23/20 at 1555, Nausea, Start with 4mg and if ineffective in 30 minutes, give an additional 4mg If multiple antiemetic s are ordered, give ondansetron first. ondansetron (Zofran) tablet 4-8 mg 4-8 mg, Oral, EVERY 8 HOURS PRN, Starting on Sat 06/21 at 1531, Until Tue06/23/20 at 1555, Nausea, Vomiting, If multiple anti [...] Given 06/22/2020 9:57 AM EST 40 mg phytonadione (vitamin K1) New Bag 06/22/2020 9:59 AM EST 10 mg 51 mL/hr (Aqua-Mephyton) 10 mg in sodium chloride 0.9% 51 mL infusion 10 mg, Intravenous, DAILY, 3 doses, First dose on 06/21/20 at 1800, Last dose on Tue06/23/20 at 0900, Administer over 60 Minutes, Administer by slow IV infusion over 60 minutes New Bag 06/21/2020 6:40 PM EST 10 mg 51 mL/hr sodium chloride 0.9 % (flush) flush 5 mL Given 06/23/2020 8:14 AM EST 5 mLs 5 mL, Intravenous, 2 TIMES DAILY, First dose on 06/21/20 at 2100, Until Discontinued, Routine Given 06/22/2020 8:05 PM EST 5 mLs Given 06/22/2020 5:00 AM EST 5 mLs sodium chloride 0.9% 500 mL IV bolus New Bag 06/21/2020 11:07 PM EST 1000 mL/hr at 1,000 mL/hr, Intravenous, ONCE, 1 dose, On 06/21/20 at 2330 thiamine (Vitamin B1) tablet 100 mg Given [...] (Stopped - Provider: Rola Resendez RN) 1040 ([facility] Hold - Provider: Admin Adt - R alida: Transfer to a Procedural area)1213 ([facility] Unhold - Provider: Admin Adt)1702 (New Bag - Provider: Kimmy Sheikh, ARANZA)1732 (Stopped - Provider: Kimmy Sheikh RN) 1 g, Intravenous, EVERY 24 HOURS, 5 dose s, First dose on 06/21/20 at 1730, Last dose on Tue06/25/20 at 1730, Administer over 30 Minutes, Indication for (Active or Suspected): Bacteremia/Sepsis folic acid (Folvite) tablet 1,000 mcg 1608 (Given - Pr ovider: Rola Resendez RN) 0953 (Given - Provider: Susi Hernandez RN)1040 ([facility] Hold - Provider: Admin Adt - Reason: Transfer to a Procedural area)1213 ([facility] Unhold - Provider: Admin Adt) 0815 (Given [...] 0952 (Given - Provider: Susi Hernandez RN)1040 ([facility] Hold - Provider: Admin Adt - Reason: Transfer to a Procedural area)1213 ([facility] Unhold - Provider: Admin Adt) 0815 (Given - Provider: Dora De Dios RN) 1 tablet, Oral, DAILY, First dose on 06/21/20 at 1630, Until Discontinued, Routine pantoprazole (PROTONIX) injection 40 mg 2034 (Given - Provider: Karmen Jones RN) 0957 (Given - Provider: Susi Hernandez RN)1040 ([facility] Hold - Provider: Admin Adt - Reason: Transfer to a Procedural area)1213 ([facility] Unhold - Provider: Admin Adt)2004 (Given - Provider: Zahida White, RN) 0814 (Given - Provider: Dora De Dios RN) 40 mg, Intravenous, 2 TIMES DAILY, First dose on 06/21/20 at 2100, Until Discontinued phytonadione (vitamin K1) (Aqua-Mephyton ) 10 mg in sodium chloride 0.9% 51 mL infusion 1839 (New Bag - Provider: Rola mi RN)194 (Stopped - Provider: Karmen Jones RN) 0959 (New Bag - Provider: Susi tsreeter RN)1040 ([facility] Hold - Provider: Admin Adt [...] slow IV infusion over 60 minutes 1213 ([facility] Unhold - Provider: Admin Adt) sodium chloride 0.9 % (flush) flush 5 mL 2034 (Given - Provider: Karmen Jones RN) 0500 (Given - Provider: Susi Hernandez RN)1040 ([facility] Hold - Provider: Admin Adt - Reason: Transfer to a Procedural area)1213 ([facility] Unhold - Provider: Admin Adt)2004 (Given - Provider: Zahida White RN) 0814 (Given - Provider: Dora De Dios RN) 5 mL, Intravenous, 2 TIMES DAILY, First dose on 06/21/20 at 2100, Until Discontinued, Routine sodium chloride 0.9% 500 mL IV bolus (COMPLETED) 2306 (New Bag - Provider: Karmen Jones RN)2337 (Stopped - Provider: Karmen Jones RN) at 1,000 mL/hr, Intravenous, ONCE, 1 dose, 06/21/20 at 2330 thiamine (Vitamin B1) tablet 100 mg 1608 (Given - Prov ider: Rola Resendez, ARANZA) 0900 (Given - Provider: Susi Hernandez, RN)1040 ([facility] Hold - Provider: Admin Adt - Reason: Transfer to a Procedural area)1213 ([facility] Unhold - Provider: Admin Adt) 0815 (Given - Provider: Dora De Dios RN) 100 mg, Oral, DAILY, First dose on Sat 1 08/21/19 at 1630, Until Discontinued, Routine Continuous Medication Order 06/21/2020 06/22/2020 06/23/2020 octreotide acetate (SandoSTATIN) 500 mcg in sodium chloride 0.9% 100 mL infusion (CANCELED) 1606 (New Bag - Provider: Rola Resendez, ARANZA) 0021 ( New Bag - Provider: Karmen Jones RN)1040 ([facility] Hold - Provider: Admin Adt - Reason: Transfer to a Procedural area)1121 ([facility] Unhold - Provider: Letty Brumfield, ARANZA) 50 mcg/hr (10 mL/hr), at 10 mL/hr, Intra venous, CONTINUOUS, Starting 06/21/20 at 1630, Until 06/22/20 at 1242 1122 (Con tinued Bag - Provider: Letty Brumfield, ARANZA - Comment: continued bag from Endo) PRN Medication Order 06/21/2020 06/22/2020 06/23/2020 lidocaine (XYLOCAINE) 10 mg/mL (1 %) injection 3 mg 1040 ([facility] Hold - Provider: Admin Adt - Reason: Transfer to a Procedural area)1213 ([facility] Unhold - Provider: Admin Adt) 3 mg (0.3 mL), Subcutaneous, ONCE PRN, 1 dose, Starting 06/21/20 at 1531, Until 06/23/20 at 1555, for discomfort with PIV insertion, Routine ondansetron (ZOFRAN) injection 4-8 mg(Linked Group 1) 1040 ([facility] Hold - Provider: Admin Adt - Reason: Transfer to a Procedural area)1213 ([facility] Unhold - Provider: Admin Adt) 4-8 mg, Intravenous, EVERY 8 HOURS PRN, Starting 06/21/20 at 1531, Until 06/23/20 at 1555, Nausea, Start with 4mg and if ineffective in 30 minutes, give an additional 4mg If multiple antiemetics are ordered, give ondansetron first. ondansetron (Zofran) tablet 4-8 mg(Linked Group 1) 1040 ([facility] Hold - Provider: Admin Adt - Reason: Transfer to a Procedural area)1213 ([facility] Unhold - Provider: Admin Adt) 4-8 mg, [...] 0.9 % (flush) flush 5-20 mL 1040 ([facility] Hold - Provider: Admin Adt - Reason: Transfer to a Procedural area)1213 ([facility] Unhold - Provider: Admin Adt) 5-20 mL, [...] at 1531, Until 06/23/20 at 1555, Nausea, Vomiting
If multiple antiemetics [...] first.
documented in this encounter Care Teams Outdoor Guide Relationship Specialty Start Date End Date Julieta Odell APRN PCP - General Family Medicine 04/11/20 [address] [place] [address] documented as of this encounter
--- OUTSIDE RECORDS SUMMARY | 2022-04-22 08:33 | XMS_ITS | Encounter Summary ---
:1980 Author Organization [facility] [place] [address] Care Team Providers Name Role Phone Julieta Odell APRN Primary Care Provider [phone] Reason for Visit Reason Comments Medication Refill Encounter Details Date Type Department Care Team Description 08/08/2020 Refill Internal Medicine at [facility] Evin Mckeon [facility] Jordy [facility] [place] [address] GENERAL INTERNAL MEDICINE [phone] [place] [id number] (Wo rk) Social History Tobacco Use Types Packs/Day Years Used Date Never Smoker Smokeless Tobacco: Never Used Comments: never Alcohol Use Standard Drinks/Week Comments Not Currently 10 (1 standard drink = 0.6 oz pure alcoh ol) Alcohol Habits Answer Date Recorded How often do you have a drink containing 4 or more times a w [place] 06/21/2020 alcohol? How many drinks containing alcohol [...] on filedocumented in this encounter Care Teams Clerical Support Specialist Relationship Specialty Start Date End Date Julieta Odell APRN PCP - General Family Medicine 04/11/20 [address] [employer] [id number] documented as of this encounter
--- OUTSIDE RECORDS SUMMARY | 2022-04-22 08:33 | XMS_ITS | Encounter Summary ---
:1980 Author Organization [facility] [place] [address] Care Team Providers Name Role Phone Julieta Odell APRN Primary Care Provider [phone] Reason for Visit Reason Comments Medication Refill Encounter Details Date Type Department Care Team Description 12/12/2020 [place]ill [place] [facility] [place]in Mckeon [facility] Jordy [facility] [place] [address] GENERAL INTERNAL MEDICINE [phone] [place] [id number] (Wo rk) Social History Tobacco Use Types Packs/Day Years Used Date Never Smoker Smokeless Tobacco: Never Used Comments: never Alcohol Use Standard Drinks/Week Comments Not Currently 10 (1 standard drink = 0.6 oz pure alcoh ol) Alcohol Habits Answer Date Recorded How often do you have a drink containing 4 or more times a w [place] 06/21/2020 alcohol? How many drinks containing alcohol [...] on filedocumented in this encounter Care Teams Boss Miner Relationship Specialty Start Date End Date Julieta Odell APRN PCP - General Family Medicine 04/11/20 [address] [place] [phone] documented as of this encounter
--- OUTSIDE RECORDS SUMMARY | 2022-04-22 08:33 | XMS_ITS | Encounter Summary ---
:1980 Author Organization [facility] [place] [address] Care Team Providers Name Role Phone OdellJulieta stacy Lizzy ESPOSITO Primary Care Provider [phone] Encounter Details Date Type Department Care Team Description 12/30/2020 Telephone Gastroenterology at [facility] [place] [address] Social History Tobacco Use Types Packs/Day Years Used Date Never Smoker Smokeless Tobacco: Never Used Comments: never Alcohol Use Standard Drinks/Week Comments Not Currently 10 (1 standard drink = 0.6 oz pure alcoh ol) Alcohol Habits Answer Date Recorded How often do you have a drink containing 4 or more times a w [place] 06/21/2020 alcohol? How many drinks containing alcohol do you have 1 or 2 06/21/2020 on a typical day when you are drinking? How often do you have six or more drinks on one Not asked 06/21/2020 occasion? Comment: Not asked Sex Assigned at Date Recorded Not on file documented as of this encounter Miscellaneous Notes Telephone Encounter - Frances Goff Che[place] - 12/30/2020 3:49 PM EDT Violet Cowan [id number] Diagnosis/Indication: polyps 1. Have you ever had a/an Upper EUS before? No If yes, did you have any problems with the procedure? No What type of sedation was used: General Anesthesia 2. Do you take any blood thinners or have you been diagnosed with a bleeding disorder that increasesyour risk of bleeding with procedures? No 3. Do you have a Pacemaker or Defibrillator device? No 4. Are you a diabetic? No 5. Do you have any Allergies to Eggs, Latex or Medications? No 6. Do you take any Oral Iron Supplements (Including multi-vitamins)? Yes (Iron) 7. Do you have a history of three or more abdominal surgeries? No 8. Have you had a problem with sedation or anesthesia? No 9. Do you use a c-pap machine or oxygen tank? Neither 10. Do you take prescription narcotic pain medications, including suboxone or methodone? No 11. Do you have a preference regarding the gender of your provider? No Preference 12. Is there any other information you would like to us to note for the provider and nursing team who will perform your case? Yes: wants medication instruction after the procedure 13. Say to patient: You must have a responsible green party who will drive you to your procedure, stay on campus for the entire duration of your procedure, and drive you home from your procedure? *Please Verify the height and weight, and adjust if height and/or weight have changed* Estimated body mass index is 23.65 kg/m?? as calculated from the following: Height as of 06/21/20: 170.2 cm (5' 7.01). Weight as of 06/21/20: 68.5 kg (151 lb 0.2 oz). Age:40 y.o. documented in this encounter Plan of Treatment Not on filedocumented as of this encounter Visit Diagnoses Not on filedocumented in this encounter Care Teams Oyster Grader Relationship Specialty Start Date End Date Julieta Odell APRN PCP - General Family Medicine 04/11/20 [address] [place] [address] documented as of this encounter
--- OUTSIDE RECORDS SUMMARY | 2022-04-22 08:34 | XMS_ITS | Encounter Summary ---
:1980 Author Organization [facility] [place] [address] Care Team Providers Name Role Phone Julieta Odell Lizzy ESPOISTO Primary Care Provider [phone] Encounter Details Date Type Department Care Team Description 04/18/2020 Telephone [place] [facility] Malaika Davidson MD [facility] [place] [address] GASTROENTEROLOGY DEPT [phone] [place], [place] [address] (Wo rk) Social History Tobacco Use Types Packs/Day Years Used Date Never Assessed Alcohol Habits Answer Date Recorded How often do you have a drink containing 4 or more times a w [place] 06/21/2020 alcohol? How many drinks containing alcohol do you have 1 or 2 06/21/2020 on a typical day when you are drinking? How often do you have six or more drinks on one Not asked 06/21/2020 occasion? Comment: Not asked Sex Assigned at Date Recorded Not on file documented as of this encounter Miscellaneous Notes Telephone Encounter - Malaika Davidson MD - 04/18/2020 8:53 PM EDT Transfer Center Call: I received a call from Dr. Mackenzie with [facility]. See prior notes. INR 1.5 CT doesn't show PVT. Mild to moderate ascites. Diffuse wall thickening of stomach. Plan will be to transfer the patient here from [facility] and GI will see and evaluate the patient. This is not an official consult, as my recommendations are limited by my inability to interview and examine the patient as well as personally review the medical record, imaging, and laboratory findings. Malaika Davidson MD Gastroenterology Fellow 04/18/2020 8:53 PM Pager #[phone] documented in this encounter Plan of Treatment Not on filedocumented as of this encounter Visit Diagnoses Not on filedocumented in this encounter Care Teams Wafer Production Worker Relationship Specialty Start Date End Date Julieta Odell APRN PCP - General Family Medicine 04/11/20 [address] [place] [address] documented as of this encounter
--- OUTSIDE RECORDS SUMMARY | 2022-04-22 08:34 | XMS_ITS | Encounter Summary ---
:1980 Author Organization [facility] [place] [address] Care Team Providers Name Role Phone OdellJulieta stacy Lizzy ESPOSITO Primary Care Provider [phone] Reason for Visit Auth/Cert Specialty Diagnoses / Procedures Referred By Contact Refer red To Contact Diagnoses Alcoholic hepatitis with ascites Alcoholic hepatitis hyperbilirubinemia , leukocytosis, cirrhosis Procedures EMERGENCY IPI Referral ID Status Reason Start Date Expiration Date Visits Requ ested Visits Authorized [id number] 1 1 Encounter Details Date Type Department Care Team Description 04/26/2020 - Hospital Encounter 1 [facility] [place] [address] 05/06/2020 [facility] Karina [place] [address] [facility] Carlitos [place] [address] [place] [phone] Social History Tobacco Use Types Packs/Day Years Used Date Never Smoker Smokeless Tobacco: Never Used Comments: never Alcohol Use Standard Drinks/Week Comments Yes 10 (1 standard drink = 0.6 oz pure alcoh ol) Alcohol Habits Answer Date Recorded How often do you have a drink containing 4 or more times a w [place] 06/21/2020 alcohol? How many drinks containing alcohol [...] Sign Reading Time Taken Comments Blood Pressure 117/69 05/06/2020 4:46 PM EDT Pulse 106 05/06/2020 4:46 PM EDT Temperature 37.5 ??C (99.5 ??F) 05/06/2020 4:46 PM EDT Respiratory Rate 22 05/06/2020 4:46 PM EDT Oxygen Saturation 92% 05/06/2020 9:13 PM EDT Inhaled Oxygen Concentration - - Weight 78.7 kg (173 lb 9.6 oz) 05/05/2020 4:46 AM EDT Height 170.2 cm (5' 7) 04/26/2020 4:47 AM EDT Body Mass Index 27.19 04/26/2020 4:47 AM EDT documented in this encounter Discharge Summaries Mala Martínez MD - 05/05/2020 4:20 PM EDT Discharge Summary Patient Name: Violet Cowan Patient Age: 39 y.o. Language: British Race: White Ethnicity: Not nor Admit date: 04/26/2020 Discharge date: 05/06/20 Attending Physician: Carlitos Taveras MD Follow-up Recommendations for Providers: -Last day of the 7-day prednisolone trial will be 05/06/2020 (40mg qd), once at [facility], please consider whether to continue with steroids or discontinue steroids Inpatient Provider Contact Information: For questions regarding this document or issues relating to this hospitalization on the Medical Service, please contact your inpatient physician through the [facility] [employer] . Issues after hours and on weekends will be handled by the Hospitalist staff on-call. Discharge Diagnoses (Hospital Problems) and Secondary Diagnoses (Chronic Problems): Active Hospital Problems Diagnosis ??? Alcoholic hepatitis with ascites ??? Alcoholic hepatitis Resolved Hospital Problems No resolved problems to display. Active Non-Hospital Problems Diagnosis ??? Jaundice ??? GI bleed Operations/Major Procedures: US-guided paracentesis on 04/28/2020 History of Presentation: (From admission H&P by Dr. Mckeon on 04/26/2020) Violet Cowan is a 39 y.o. female w/ PMH of alcohol use disorder,??likely alcoholic??cirrhosis,medically managed microprolactinoma??and multiple recent admission. Originally she required admission for hemorrhagic shock secondary to a bleeding pre-pyloric ulcer s/p EGD clipping and IR embolization??who represented??in transfer last week with fever, leukocytosis and jaundice now being transferredafter f/u lab work showed worsening leukocytosis. ?? Mrs. Cowan presented to PCP office yesterday for routine post hospitalization lab work in her usual state of health. She was found to be afebrile, HD stable and had worsening leukocytosis compared to labs at recent discharge as well as up trending LFTs. In this setting she was sent to local ED, where preliminary workup affirmed the above lab abnormalities to be true. Given recent [facility] hospitalizations request for transfer was made and accepted. ?? Recent hospitalizations and health care exposures are summarized as followed: ICU admission from 04/11-04/14 treated for hemorrhagic shock secondary to a vigorously bleeding pre-pyloric ulcer that required 4-clips and then IR embolization to eventually achieve stabilization. ?? Transferred to hospital medicine 04/14-04/17 Completed initial cirrhosis workup with assistance of GI,ultimately thought to have alcoholic hepatitis and treatment w/ steroids was precluded by GIB on presentation. Of note a RUQUS was initially concerning for PVT, prompting MRI that showed patent hepaticand portal vessels. While inpatient she was given CTX as SBP ppx (given GIB and mild ascites seen onimaging) and discharged on??ciprofloxacin to complete 7 day total course. ?? 04/19 Patient presented to PCPs office and had a documented fever to 102F which defervesced on recheck in 20 minutes to 99.0 (both readings taken w/ transcutaneous monitor). She was then transferred to local ED, where she again was afebrile, and ultimately transferred to [facility] that day. ?? 04/19-04/22 On arrival she was given IV zosyn x 1, but then clinically monitored off antibiotcs for fever or other infectious stigmata. Blood and urine cultures from this hospitalization were negative, and with serial monitoring of ascites that accumulated to a level that was tappable by IR studies ultimately showed no SBP and SAAG c/w portal hypertension. She was started on po lasix to manage extravascular fluid, and despite LFTs and WBC count up trending pt opted to be discharged home with close outpt monitoring of labs. Per d/c provider instructions if Violet has any additional fevers, hard tocontrol ascites, up-trending bilirubin or symptoms concerning for hepatic encephalopathy we recommend that she go to the nearest emergency room for further work-up and evaluation? 04/25 see above ?? In talking with her she endorses taking all medications as prescribed, with the assistance of her . She does note that since discharge she has become more swollen, particularly her belly and herlegs. She will sit most of the day with feet raised to good effect in decreasing edema, but upon standing they go right back to being very swollen. Yesterday morning she notes diffuse abdominal discomfort 2/2 abdominal stretch and distension, she describes a tight abdomen. This improved a little aftertransfer to [facility], with improvement in the tightness, discomfort and distension. She has remained abstinent from etoh or other substances since last discharge. See below for full ROS. ?? ROS: Positive findings are BOLDED. GEN: Fever, chills, fatigue, nocturnal sweats anorexia. CV: chest pain, palpitations, orthopnea, paroxysmal noctural dyspnea, claudication PULM: dyspnea, cough (unchanged from prior, nonproductive), wheezing, sputum production ABD: abdominal pain 2/2 distansion, dysphagia, odynophagia, nausea, vomiting, diarrhea, constipation, melena, hematochezia. : dysuria, hematuria NEURO: anesthesia, paresthesia, asymmetric weakness, headache, photophobia, or phonophobia. SKIN: rashes, ulcers HEM: Bleeding, bruising MSK: arthralgia, arthritis, myalgia PSYCH: Depression, anhedonia, suicidal ideation, homicidal ideation Hospital Course: On 04/28/2020, patient underwent ultrasound-guided paracentesis which took off 2.8 L of serous yellowfluid (given albumin afterwards). Given that the patient had significant lower extremity edema in the aforementioned ascites, she was started on low doses of Lasix and Aldactone, but it was noted that even low doses led to spikes in her creatinine consistent with acute renal injury requiring dose reduction or complete cessation of diuretics. It was noted that the patient's bilirubin and INR continuedto uptrend, raising concern for fulminant end-stage liver failure in the setting of alcoholic hepatitis. There is a perception that even though it was rather late in the course of her alcoholic hepatitis, there was little to be lost by starting a 7-day prednisone steroid trial (as we could firmly commence her cells from her abdominal exam and vitals that she was not actively infected and did not haveSBP), so on 04/30/2020 we began a 7-day trial of prednisolone 40mg PO qd. overall during this trial, t he patient's bilirubin and INR stayed essentially the same, notable for the latter even given that she was given vitamin K replacement. Due to considerable concern for fulminant hepatic failure that would be life-threatening if the patient did not get a liver transplant, and knowing that the patient had indeed drunk within the last several months (though she had not been any point told by a clinicianto not drink for the sake of her liver), decision was made to reach out to liver transplant centers for consideration for hepatic transplant. Patient was connected with the [facility], and ultimately given that on day 6 of 7 for the steroid trial the patient's hepatic function had not improved, on 05/05/2020 we spoke with transplant silk spotter at [facility] who tentatively accepted the patient for prompt [id number]-ul-[id number] transfer for liver transplantation evaluation. Serum creatinine was 1.5 on 05/05, as such diuretics were stopped (we had been giving lasix 20 mg and spironolactone 25-50 mg for ~four days). She received an albumin challenge of 1 mg/kg. On 05/06, serum creatinine had decreased from 1.5 to 0.5. Given painful ascites she underwent paracentesis with removal of ~2 L. No labs were sent for cell count or culture from the ascites fluid. She received 50 gm of albumin after the paracentesis. Of note, she developed a new oxygen requirement of 2-4L ofoxygen on 05/06. Bedside ultrasound did not show significant pleural effusion but did show bilateral B-lines. CXR did not show a pleural effusion but did show pulmonary edema. I presume this is non-cardiogenic pulmonary edema due to her liver failure. She was accept to [facility] in transfer on the evening of 05/06. Vital Signs at Discharge: BP: 117/69, Heart Rate: (!) 106, Temp: 37.5 ??C (99.5 ??F), Resp: 22, BMI (Calculated): 29.55 Height: 170.2 cm (5' 7) (04/26/20446) Weight: 78.7 kg (173 lb 9.6 oz) (05/05/20445) Functional and Cognitive Status: Functional status is good and cognitive status is very good Important Studies and Lab Data: Last wbc, hgb, hct plt Recent Labs 05/06/20548 WBC 41.5* HGB 9.8* HCT 30.2* Last 3 wbc, hgb, hct plt Recent Labs 05/06/2054805/05/2044005/04/20317 WBC 41.5* 32.9* 29.1* HGB 9.8* 9.5* 9.6* HCT 30.2* 29.0* 29.5* PLATELET 277 240 264 Last 3 Lytes Recent Labs 05/06/2054805/05/2044005/04/20317 NA 136 134* 135 K 4.1 4.5 4.3 CL 99 98 100 CO2 26 26 26 BUN 18 21* 20* CREATININE 0.57* 1.56* 1.02 Last 3 LFTs Recent Labs 05/06/2054805/05/2044005/04/2031705/01/20 0511 04/26/20 0635 04/22/20 0700 AST 204* 207* 206* < > 178* < > 149* 120* ALT 56* 48* 43* < > 27 < > 30 31* ALKPHOS 118* 121* 143* < > 127* < > 117* 118* BILITOT 19.5* 17.6* 17.7* < > 21.2* < > 17.4* 14.0* BILIDIR -- -- -- -- >10.0* -- >10.0* >10.0* < > = values in this interval not displayed. Results for VIOLET COWAN ( ) as of 05/05/2020 16:34 Ref. Range 04/11/2020 15:45 04/12/2020 02:45 04/13/2020 00:40 04/14/2020 01:20 04/15/2020 04:05 04/17/2020 03:41 04/19/2020 03:02 04/20/2020 03:08 04/21/2020 04:16 04/22/2020 07:00 04/26/2020 06:35 04/27/2020 04:35 04/28/2020 05:21 04/29/2020 03:58 04/30/2020 10:24 05/01/2020 05:11 05/02/2020 06:04 05/03/2020 05:11 05/04/2020 03:18 05/05/2020 04:41 Total Bilirubin Latest Ref Range: 0.2 - 1.3 mg/dL 4.9 (H) 4.6 (H) 6.9 (H) 7.7 (H) 7.3 (H) 7.6 (H) 11.1 (H) 12.0 (H) 12.5 (H) 14.0 (H) 17.4 (H) 16.8 (H) 18.1 (H) 19.7 (H) 21.5 (H) 21.2 (H) 21.1 (H) 21.4(H) 17.7 (H) 17.6 (H) Results for VIOLET COWAN ( ) as of 05/05/2020 16:34 Ref. Range 04/11/2020 15:45 04/11/2020 19:45 04/12/2020 00:10 04/12/2020 04:15 04/13/2020 00:40 04/15/2020 04:05 04/16/2020 03:40 04/17/2020 03:41 04/19/2020 03:02 04/20/2020 09:05 04/21/2020 04:16 04/26/2020 06:35 04/27/2020 04:35 04/28/2020 05:21 04/29/2020 03:58 04/30/2020 10:24 05/01/2020 05:11 05/02/2020 06:04 05/03/2020 05:11 05/04/2020 03:18 05/05/2020 04:41 INR Unknown 1.5 1.6 1.6 1.6 1.3 1.5 1.4 1.7 2.1 2.0 2.0 2.5 2.5 2.6 2.7 2.8 2.9 2.4 2.2 2.4 2.5 Last Ca, Mg, Phos Recent Labs 05/06/20 0549 CALCIUM 9.1 PHOS 2.8 MAGNESIUM 0.99 Last 3 Coags Recent Labs 05/06/20 0549 05/05/20 0441 05/04/20 0318 PT 27.7* 28.3* 27.2* INR 2.4 2.5 2.4 PTT 36 37 37 Last 3 Lipids Recent Labs 04/11/20 1945 TRIG 177 Last 3 CBC Recent Labs 05/06/2049 05/05/201 05/04/20 031 WBC 41.5* 32.9* 29.1* Pending Studies and Lab Data: None Transfer Conditions/Prognosis: stable Transfer to: [facility] for liver transplantation eval Updated Allergies/ADRs: No Known Allergies Immunizations Given this Hospitalization: There is no immunization history on file for this patient. Discharge Medications: Your Medications New Medications Dose Details acetaminophen 500 mg Tab Commonly known as: Tylenol Take 1 tablet by mouth every 6 hours as needed for Pain. 500 mg Quantity: 30 tablet Refills: 1 dextromethorphan-guaiFENesin 10-100 mg/5 mL Syrp Commonly known as: Robitussin Take 5 mLs by mouth every 4 hours as needed for Cough. 5 mL Quantity: 118 mL Refills: 0 ondansetron ODT 8 mg Tbdl Commonly known as: Zofran-ODT Take 1 tablet by mouth every 8 hours as needed for Nausea. 8 mg Quantity: 20 tablet Refills: 0 prednisoLONE 5 mg Tab Commonly known as: Millipred Take 8 tablets by mouth daily. Last day of the 7-day course is 05/06/2020 40 mg Quantity: 90 each Refills: 0 Continued medications, unchanged Dose Details acamprosate DR 333 mg Tbec Commonly known as: Campral Take 2 tablets by mouth 3 times daily. 666 mg Quantity: 180 tablet Refills: 0 folic acid 1 mg Tab Commonly known as: Folvite Take 1 tablet by mouth daily. 1,000 mcg Quantity: 90 tablet Refills: 3 multivitamin with minerals 9 mg iron-400 mcg Tab Commonly known as: THERA-M Take 1 tablet by mouth daily. 1 tablet Quantity: 30 tablet Refills: 0 pantoprazole EC 40 mg Tbec Commonly known as: Protonix Take 1 tablet by mouth 2 times daily. 40 mg Quantity: 90 tablet Refills: 3 thiamine Commonly known as: Vitamin B1 Take 1 tablet by mouth daily. 100 mg Quantity: 30 tablet Refills: 0 STOPPED Medications furosemide 20 mg Tab Commonly known as: Lasix Smoking Status at Discharge: Social History Tobacco Use Smoking Status Never Smoker Smokeless Tobacco Never Used Tobacco Comment never Instructions Given to Patient at Discharge: Patient Instructions General Instructions [facility] Vascular and Interventional Radiology Discharge Instructions Following Your Paracentesis: (drainage of fluid from abdomen) Activity and Diet: Go home and rest quietly for the remainder of the day. You may resume your normalactivities tomorrow. We recommend that you do not drive, operate equipment, sign any important documents, or smoke unattended for 24 hours following your procedure. Resume your usual diet after the procedure. Bandage: There is a sterile dressing over the puncture site consisting of a small gauze with a cleardressing (Tegaderm). This dressing should be left in place for 24 hours. If the clear dressing becomes loose, you should place tape over the edges to secure it in place. Bathing: Do not take a shower until 24 hours after your procedure; after this time you may shower with the dressing in place, then remove it and pat your skin dry. You may use a bandaid to cover the site if there is any drainage. When to call your healthcare provider: *If you notice bleeding or a bulge from the puncture site. You should apply firm pressure over the site for 10-15 minutes, keeping the site covered. If you are still bleeding after 10-15 minutes, reapply pressure, and have someone drive you to the nearest Emergency Department, or call 911. *You may develop cramping in your abdomen. If this persists, please contact your Physician. If you should have any dizziness or lightheadedness that persists, go to your nearest Emergency Department orcall 911. *If you develop pain, redness, drainage or swelling at or around the puncture site. *If you develop fever equal to or greater than 101F and/or shaking chills. *It is normal for your intravenous site to be slightly tender and red. You may use a warm compress to help with the symptoms. If tenderness or redness persists, or increases, or you notice drainage from the site, please contact your healthcare provider. When to call the Interventional Radiology Department: Please call with any questions or concerns. Ifit is during regular office hours, please call [phone]. If it is after regular office hours, oron weekends or holidays, please call [phone] and ask to speak to the Complaint Evaluation Supervisor on callfor Interventional Radiology. Revised 05/17/19 Future Appointments and Orders Future Appointments and Orders Future Appointments Provider Department Dept Phone 05/09/2020 10:00 AM Anabel English MD Gastroenterology at [facility] Arrive at: K 9 Handler/ Deputy Area 4L [phone] Discharge References/Attachments None documented in this encounter Discharge Instructions Discharge InstructionsBina Connell RN - 04/28/2020 8:50 AM EDT [facility] Vascular and Interventional Radiology Discharge Instructions Following Your Paracentesis: (drainage of fluid from abdomen) Activity and Diet: Go home and rest quietly for the remainder of the day. You may resume your normalactivities tomorrow. We recommend that you do not drive, operate equipment, sign any important documents, or smoke unattended for 24 hours following your procedure. Resume your usual diet after the procedure. Bandage: There is a sterile dressing over the puncture site consisting of a small gauze with a cleardressing (Tegaderm). This dressing should be left in place for 24 hours. If the clear dressing becomes loose, you should place tape over the edges to secure it in place. Bathing: Do not take a shower until 24 hours after your procedure; after this time you may shower with the dressing in place, then remove it and pat your skin dry. You may use a bandaid to cover the site if there is any drainage. When to call your healthcare provider: *If you notice bleeding or a bulge from the puncture site. You should apply firm pressure over the site for 10-15 minutes, keeping the site covered. If you are still bleeding after 10-15 minutes, reapply pressure, and have someone drive you to the nearest Emergency Department, or call 911. *You may develop cramping in your abdomen. If this persists, please contact your Physician. If you should have any dizziness or lightheadedness that persists, go to your nearest Emergency Department orcall 911. *If you develop pain, redness, drainage or swelling at or around the puncture site. *If you develop fever equal to or greater than 101F and/or shaking chills. *It is normal for your intravenous site to be slightly tender and red. You may use a warm compress to help with the symptoms. If tenderness or redness persists, or increases, or you notice drainage from the site, please contact your healthcare provider. When to call the Interventional Radiology Department: Please call with any questions or concerns. Ifit is during regular office hours, please call [phone]. If it is after regular office hours, oron weekends or holidays, please call [phone] and ask to speak to the Complaint Evaluation Supervisor on callfor Interventional Radiology. Revised 05/17/19 documented in this encounter Medications at Time [...] Delayed mouth 3 times Release (E.C.) daily. prednisoLONE (Millipred) Take 8 tablets by 90 each 0 12/201906/23/2020 5 mg Tablet mouth daily. Last day of the 7-day course is 05/06/2020 documented as of this encounter Progress Notes Giovanna Cruz RN - 05/06/2020 9:34 PM EDT Pt transferred off unit by EMS at 2130. Report given. 4L o2 via NC. Safety maintained. Transferred to [facility] for transplant eval. Rosemary Mahoney RN - 05/06/2020 6:33 PM EDTSummary: Transfer to [facility] ED RN/CM called by assistant community director. Pt has been accepted to [facility]. She has packet of information/ambulance information. She will be calling report soon. Vero is at ext: [phone]. MD will need to complete - DC Summary and ask for Images on CD to be sent (Film Library: [phone]) [place]: Copy chart ED RN/CM has spoken with Jenn at [facility]: [phone]. She will follow up with ARANZA Pham to determine which transport patient will need tonightHarry Muñoz) ARANZA Mahoney ED RN/CM Cellphone: [phone] Donna Hope RN - 05/06/2020 12:06 PM EDT [facility] Name: VIOLET COWAN Date of : 1980 AGE: 39 y.o. Address: [address] [address] (home) Mobile: Telephone Information: Referring Provider: Dontae Aquino REASON FOR VISIT: Paracentesis Order Questions Answers What is the purpose of the study? Therapeutic Reason for exam and clinical history: cirrhotic with alcoholic hepatitis, with recurrent ascites (was tapped by IR earlier in this admission) Exam/Procedure requested: Para (please take off no more than 4L of fluid) Is the patient on anticoagulant / anitplatelet therapy ? No Is the patient ? Unknown Requested Date 05/06/20 Plan Planned procedure: Therapeutic and Diagnostic para (04/28/20741) Labs to be performed day of procedure: No labs (04/28/20741) Sedation: No Sedation (04/28/20741) Prophylactic antibiotic : None (04/28/20741) Contrast: No contrast (04/28/20741) Additional medications for procedure: Lidocaine (04/28/20741) Medications to discontinue (and days held): None (04/28/20741) Planned access site: Abd (04/28/20741) Position: Supine (04/28/20741) Cytopathology presence needed: No (04/28/20741) Consent: Scanned (04/28/20741) No Known Allergies Pertinent PSH: Past Surgical History: Procedure Laterality Date ??? IR ARTERIAL INTERVENTION 04/12/2020 IR Arterial Intervention 04/12/2020 Carlitos Steve, [facility] RAD ??? IR PARACENTESIS 04/21/2020 IR Paracentesis 04/21/2020 Darren Roy MD [facility] RAD ??? IR PARACENTESIS 04/28/2020 IR Paracentesis 04/28/2020 Kye Nazario MD [facility] INTER[facility] RAD Date/Procedure ?Meds Given/Comments 04/11/20 angiography??with multiple coils for embolization in GDA. ICU patient ??04/21/20 Diagnostic Paracentesis??40 cc ??Local only 04/28/20 Paracentsis cc 3100 ??Local only 05/06/20 Paracentesis Local only ? 1205 to procedure room 1 via stretcher. On stretcher supine. All monitors, O2, safety strap in place. Meds per protocol. Laboratory Results: Lab Results Component Value Date INR 2.4 05/06/2020 Lab Results Component Value Date CREATININE 0.57 (L) 05/06/2020 Lab Results Component Value Date K 4.1 05/06/2020 Lab Results Component Value Date PLATELET 277 05/06/2020 Bina Connell RN - 05/06/2020 12:06 PM EDT [facility]GIO [facility]UR[facility] DATABASE Name: VIOLET COWAN Date of : 1980 AGE: 39 y.o. Address: [address] [address] (home) Mobile: Telephone Information: Referring Provider: Dontae Aquino REASON FOR VISIT: Paracentesis Order Questions Answers What is the purpose of the study? Therapeutic Reason for exam and clinical history: cirrhotic with alcoholic hepatitis, with recurrent ascites (was tapped by IR earlier in this admission) Exam/Procedure requested: Para (please take off no more than 4L of fluid) Is the patient on anticoagulant / anitplatelet therapy ? No Is the patient ? Unknown Requested Date 05/06/20 Plan Planned procedure: Therapeutic and Diagnostic para (04/28/20741) Labs to be performed day of procedure: No labs (04/28/20741) Sedation: No Sedation (04/28/20741) Prophylactic antibiotic : None (04/28/20741) Contrast: No contrast (04/28/20741) Additional medications for procedure: Lidocaine (04/28/20741) Medications to discontinue (and days held): None (04/28/20741) [facility] access [facility] (04/28/20741) Position: Supine (04/28/20741) Cytopathology presence needed: No (04/28/20741) Consent: Scanned (04/28/20741) No Known Allergies Pertinent PSH: Past Surgical History: Procedure Laterality Date ??? IR ARTERIAL INTERVENTION 04/12/2020 IR Arterial Intervention 04/12/2020 Carlitos Steve, [facility] ??? IR PARACENTESIS 04/21/2020 IR Paracentesis 04/21/2020 Darren Roy MD [facility] RAD ??? IR PARACENTESIS 04/28/2020 IR Paracentesis 04/28/2020 Kye Nazario MD [facility] RAD Date/Procedure ?Meds Given/Comments 04/11/20 angiography??with multiple coils for embolization in GDA. ICU patient ??04/21/20 Diagnostic Paracentesis??40 cc ??Local only 04/28/20 Paracentsis cc 3100 ??Local only 05/06/20 Paracentesis 1910cc Local only ? 1205 to procedure room 1 via stretcher. On stretcher supine. All monitors, O2, safety strap in place. Meds per protocol. Laboratory Results: Lab Results Component Value Date INR 2.4 05/06/2020 Lab Results Component Value Date CREATININE 0.57 (L) 05/06/2020 Lab Results Component Value Date K 4.1 05/06/2020 Lab Results Component Value Date PLATELET 277 05/06/2020 Lee Ann Quezada RN - 05/06/2020 11:03 AM EDTSad: JEROME Progress Note Promotion Writer called and spoke with ARANZA Hendricks in the Transfer Center at [facility]([phone]). She let me know that the transfer center needed the demographic sheet and requested that I fax it- which I did. ARANZA Hendricks, [facility] let me know that patient is on their waiting list and they will hopefully be ableto get her down there in 1-2 days. She will page me and call the floor. Patient will be under Dr. Odom's care. Lee Ann Quezada RN, BSN, MST, ACM Drawing Tracer pager#[phone] Isha Franklin MD - 05/06/2020 9:51 AM EDT Images from the original note were not included. Inpatient Medicine Progress Note ID: Violet Cowan is a 39 y.o. female w/ PMH of alcohol use disorder,??likely alcoholic??cirrhosis, medically managed microprolactinoma??and multiple recent admission. Originally she required admission for hemorrhagic shock secondary to a bleeding pre-pyloric ulcer s/p EGD clipping and IR emboliza tion??who represented??in transfer last week with fever, leukocytosis and jaundice now being transferred after f/u lab work showed worsening leukocytosis. 24 hr events: - on RA to 3L overnight - feels somewhat SOB Meds: Continuous Infusions: Scheduled Meds: ??? prednisoLONE 40 mg Oral Daily ??? acamprosate DR 666 mg Oral TID ??? folic acid 1 mg Oral Daily ??? multivitamin with minerals 1 tablet Oral Daily ??? pantoprazole EC 40 mg Oral BID ??? thiamine 100 mg Oral Daily ??? sodium chloride 0.9 % (flush) 5 mL Intravenous BID PRN Meds:.ondansetron, ondansetron ODT, dextromethorphan-guaiFENesin, acetaminophen, sodium chloride0.9 % (flush), lidocaine Vital Signs: Last value Range last 24 hrs Temperature Temp: 37 ??C (98.6 ??F) Temp: [36.6 ??C (97.9 ??F)-37.2 ??C (99 ??F)] Heart Rate Heart Rate: (!) 112 Heart Rate: [90-112] Blood Pressure BP: 117/68 BP: (104-117)/(62-73) Respiratory Rate Resp: 24 Resp: [17-24] SpO2 SpO2: 94 % SpO2: [86 %-94 %] Patient Vitals for the past 168 hrs: Weight 05/05/20 044 78.7 kg (173 lb 9.6 oz) 05/04/20 06 79 kg (174 lb 1.6 oz) 05/03/20 0636 80.1 kg (176 lb 8 oz) 05/02/20 0628 80.5 kg (177 lb 6.4 oz) 05/01/20 0534 80.7 kg (177 lb 14.4 oz) 04/30/20 0619 80.9 kg (178 lb 4.8 oz) I/O: Intake/Output Summary (Last 24 hours) at 05/06/2020 0951 Last data filed at 05/06/2020 0815 Gross per 24 hour Intake 700 ml Output 300 ml Net 400 ml Physical Exam: Gen: in bed in NAD; alert, oriented, interactive HEENT: scleral icterus, MMM CV: RRR, normal S1/S2, no m/r/g Resp: CTAB in upper lung schuster. Bibasilar crackles. Abd: +BS, soft, NTD, somewhat distended but not rigid Ext: WWP, no cyanosis, no clubbing, 2+ DP pulses, signficant pitting edema bilaterally Neuro: no focal deficits noted, CN II-XII grossly intact, moves all extremities spontaneously Skin: jaundiced, no rashes, lesions, or ulcerations noted Labs Recent Labs 05/06/20 0549 05/05/2044005/04/20317 WBC 41.5* 32.9* 29.1* HGB 9.8* 9.5* 9.6* HCT 30.2* 29.0* 29.5* PLATELET 277 240 264 Recent Labs 05/06/20 0549 05/05/2044005/04/20317 NA 136 134* 135 K 4.1 4.5 4.3 CL 99 98 100 CO2 26 26 26 BUN 18 21* 20* CREATININE 0.57* 1.56* 1.02 Recent Labs 05/06/20 0549 05/05/2044005/04/2031705/01/20 0511 AST 204* 207* 206* < > 178* ALT 56* 48* 43* < > 27 ALKPHOS 118* 121* 143* < > 127* BILITOT 19.5* 17.6* 17.7* < > 21.2* BILIDIR -- -- -- -- >10.0* < > = values in this interval not displayed. Recent Labs 05/06/2054805/05/2044005/04/20317 CALCIUM 9.1 8.4* 8.4* MAGNESIUM 0.99 0.91 0.93 PHOS 2.8 3.2 3.1 Recent Labs 05/06/2054805/05/2044005/04/20317 INR 2.4 2.5 2.4 PT 27.7* 28.3* 27.2* PTT 36 37 37 No results for input(s): CK, TROPONINT in the last 168 hours. No results for input(s): POCGLU in the last 168 hours. No results for input(s): PROBNP in the last 168 hours. Micro Blood Cx 04/26: NGTD x2 Paracentesis Cx 04/28: NGTD Imaging/Studies: Results for orders placed or performed during the hospital encounter of 04/26/20 XR Chest PA & Lateral (Generic) (Exam End: 04/26/2020 2:38 PM) Impression Linear atelectasis in the right midlung. Trace left pleural effusion. Thank you for letting us participate in the care of this patient. For questions regarding this report, please contact the number below. Electronically signed by: CORNELIUS BOURNE DO, [facility] ([phone]), at 04/26/2020 2:41 PM MELD-Na score: 27 at 05/06/2020 5:49 AM MELD score: 27 at 05/06/2020 5:49 AM Calculated from: Serum Creatinine: 0.57 mg/dL (Rounded to 1 mg/dL) at 05/06/2020 5:49 AM Serum Sodium: 136 mmol/L at 05/06/2020 5:49 AM Total Bilirubin: 19.5 mg/dL at 05/06/2020 5:49 AM INR(ratio): 2.4 at 05/06/2020 5:49 AM Age: 39 years 4 months ASSESSMENT/PLAN: Violet Cowan is a 39 y.o. female w/ PMH notable for alcoholic hepatitis c/b evolving cirrhosisand multiple recent admission as summarized in admission H&P. S/p para 04/28 courtesy of IR. 3.1L removed, sxs improved. Continuing to trend labs. T bili 19.5 today despite steroids (day 7 of 7). No mental status changes. More ascites on exam today. C/o shortness of breath. Plan for repeat therapeutic paracentesis (max 4L) w/ albumin replacement afterward. Cr recovered w/ albumin and holding diuretics. Do not plan to restart diuretics. Given clinical course, plan for transfer to [facility] for inpatient transplant evaluation. Plan: #??Decompensated Alcoholic Cirrhosis c/b portal hypertension and coagulopathy # fulminant hepatic failure # Alcohol Use Disorder in remission - GI consult - trend daily MELD-Na, 26 on admission, 27 today -??continue??thiamine, folate??and multi-Vit??supplement -??Recent Cirrhosis workup panel was unremarkable, see previous documentation - MELD labs qd - s/p Vit K 10mg PO x3 (05/02-05/04) - holding diuresis - prednisolone 40mg qday (day 7 of 7); Lille score on day 7 - referral to [facility] for potential transplant # BRIA - holding diuresis #SOB, likely 2/2 hepatic effusion vs atelectasis caused by ascites - f/u CXR - therapeutic paracentesis #Fever #Leukocytosis - f/u blood cx, NGTD - HOLD antibiotics given low concern for infection - No fever since 04/19. Last dose of Zosyn 04/19 @ 0400 - continue to monitor for signs/symptoms of infection?? - s/p para 04/28, Abs PMN's: 7 ?? # Recent??Prepyloric Bleeding Ulcer # Subacute blood loss Anemia - S/p clips x4, GDA embolization earlier this month -??s/p 5 total units PRBC on recent hospitalizations -??continue??PO??PPI bid - Hgb stable -??trend??daily CBC - avoid NSAIDs ?? # Routine: - Prophylaxis: ?GI: PPI??BID ?DVT: Hold AC, SCDs and ambulate?? - Nutrition:??low salt high protein diet - Code Status:??Attempt Cardiopulmonary Resuscitation - Inpatient Isha Franklin MD, PGY-1 Medicine Blue Team (pgr. [phone]) Associated attestation - Carlitos Taveras MD - 05/07/2020 6:53 AM EDT [facility] Medicine Critical Care Addendum I certify the patient meets inpatient status criteria. IS PATIENT CRITICALLY ILL? Is there a high potential of sudden, clinically significant, or life threatening deterioration? Yes Is there a need for direct personal assessment and management to treat/prevent multiple vital organ failure/deterioration? Yes Please see Dr. Franklin's note for details of the patient history [...] of two midnights or is on the [facility] inpatient only procedure list (status C) due to: decompensated cirrhosis Ascites and lower extremity edema worse today. Even with low-dose diuresis, we have not been able toavoid BRIA while attempting volume removal. Thankfully, serum creatinine improved today with albumin challenge. 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 Underwent paracentesis today. She is now requiring 2-4 L nasal cannula. Bedside ultrasound today did not show significant pleural effusions, which is surprising as I initially suspected hepatic hydrothorax. Chest x-ray showed likely acute pulmonary edema, which I presume is due to non- cardiogenic pulmonary edema. Given inability of diuresis, I am worried that we have no way to correct this short of dialysis, thankfully this is not currently urgently necessary. Her INR remains elevated, albeit stable, likely due to coagulopathy of cirrhosis. We have attempted multiple roundsof IV vitamin K, to no avail. Her bilirubin remains persistently elevated due to acute liver failure/alcoholic hepatitis, despite steroids. Case discussed with [facility] transplant center, Violet was tentatively accepted for inpatient transplant evaluation pending insurance acceptance and bed availability. CRITICAL ILLNESS DIAGNOSES: Ascites Req Treatment Acute Renal Failure Acute Liver Failure Coagulopathy Req Active Treatment Acute Hypoxemic Respiratory Failure TIME spent on the grayson excluding procedures: 32 minutes (10:02-10:34) Nabor Joseph MD - 05/06/2020 7:28 AM EDT Images from the original note were not included. DIVISION OF GASTROENTEROLOGY & HEPATOLOGY CONSULT PROGRESS NOTE NAME: Violet Cowan : 1980 INTERVAL: - SOB today after diuretics held, received albumin - Continues on prednisolone, today is day 7 - T bili slowly downtrending (now 19), Lille promising, MELD-Na 27 - Development of BRIA (Cr 1.5) on diuresis, Cr improved today to 0.6 with holding diuretics, albumin - WBC 41 on steroids. No signs/symptoms of infection or C diff Past Medical, Surgical, Family History unchanged from initial consult note MEDICATIONS Scheduled: ??? albumin human 25 % 12.5 g Intravenous Q15 Min ??? prednisoLONE 40 mg Oral Daily ??? acamprosate DR 666 mg Oral TID ??? folic acid 1 mg Oral Daily ??? multivitamin with minerals 1 tablet Oral Daily ??? pantoprazole EC 40 mg Oral BID ??? thiamine 100 mg Oral Daily ??? sodium chloride 0.9 % (flush) 5 mL Intravenous BID PRN: ondansetron, ondansetron ODT, dextromethorphan-guaiFENesin, acetaminophen, sodium chloride 0.9 % (flush), lidocaine No Known Allergies Vitals: T Temp: [36.6 ??C (97.9 ??F)-37.2 ??C (99 ??F)] HR Heart Rate: [90-112] BP BP: (104-117)/(62-73) RR Resp: [17-24] SpO2 SpO2: [86 %-94 %] 05/05 701 - 05/06 700 In: 840 [P.O.:840] Out: 300 [Urine:300] Wt Last 78.7 kg (173 lb 9.6 oz) Admit 85.59 kg Physical Exam: GEN: Awake, alert, oriented, no acute distress HEENT: scleral icterus RESP: CTAB CARDIAC: RRR, normal S1/S2, no appreciable murmurs ABDOMEN: Soft, non-tender, distended, normoactive bowel sounds EXTREM: Warm, 2+ b/l edema to thighs, non-tender to palpation NEURO: Grossly intact, moves all extremities, no asterixis SKIN: Jaundice Labs: CBC: Recent Labs 05/06/2049 05/05/2044005/04/2031705/03/2051005/02/2060305/01/2051004/30/20 1024 WBC 41.5* 32.9* 29.1* 35.5* 33.0* 26.9* 30.7* HGB 9.8* 9.5* 9.6* 10.6* 10.3* 10.2* 10.2* HCT 30.2* 29.0* 29.5* 31.5* 30.9* 30.4* 30.5* MCV 86.3 85.5 86.8 86.5 88.0 86.6 86.9 RDWCV 18.1* 18.2* 18.5* 18.8* 19.1* 18.7* 18.5* COAG: Recent Labs 05/06/20 0549 05/05/2044005/04/2031705/03/2051005/02/20 0605/01/20 0504/30/20 1024 PTT 36 37 37 39* 41* 45* 45* INR 2.4 2.5 2.4 2.2 2.4 2.9 2.8 CHEM: Recent Labs 05/06/20 0549 05/05/2044005/04/2031705/03/20 0505/02/20 0604 05/01/20 0511 04/30/20 1024 GLUCOSE 116 106 122 116 119 148 137 NA 136 134* 135 134* 135 133* 134* K 4.1 4.5 4.3 4.2 4.2 4.1 3.4* CL 99 98 100 99 100 100 99 CO2 26 26 26 26 21* 24 23 BUN 18 21* 20* 17 10 6* 5* CREATININE 0.57* 1.56* 1.02 0.93 0.92 0.69* 0.66* ALBUMIN 3.7 2.6* 2.6* 2.9* 2.6* 2.6* 2.6* MAGNESIUM 0.99 0.91 0.93 1.00 0.95 0.97 -- CALCIUM 9.1 8.4* 8.4* 8.9 8.7 8.5 8.4* HEPATIC: Recent Labs 05/06/20 0549 05/05/20 0441 05/04/20 0318 05/03/20 0511 05/02/20 0604 05/01/20 0511 04/30/20 1024 ALKPHOS 118* 121* 143* 137* 136* 127* 119* ALT 56* 48* 43* 35* 28 27 25 AST 204* 207* 206* 201* 150* 178* 205* BILITOT 19.5* 17.6* 17.7* 21.4* 21.1* 21.2* 21.5* BILIDIR -- -- -- -- -- >10.0* -- MELD-Na score: 27 at 05/06/2020 5:49 AM MELD score: 27 at 05/06/2020 5:49 AM Calculated from: Serum Creatinine: 0.57 mg/dL (Rounded to 1 mg/dL) at 05/06/2020 5:49 AM Serum Sodium: 136 mmol/L at 05/06/2020 5:49 AM Total Bilirubin: 19.5 mg/dL at 05/06/2020 5:49 AM INR(ratio): 2.4 at 05/06/2020 5:49 AM Age: 39 years 4 months Imaging: Images and reports personally reviewed in [facility] IR Paracentesis Final Result XR Chest PA & Lateral (Generic) Final Result Linear atelectasis in the right midlung. Trace left pleural effusion. Thank you for letting us participate in the care of this patient. For questions regarding this report, please contact the number below. Electronically signed by: CORNELIUS BOURNE DO, [facility] ([phone]), at 04/26/2020 2:41 PM Film Library- Storage Only DX Chest Final Result XR Chest One View (Results Pending) IR Paracentesis (Results Pending) Endoscopy: Images and reports personally reviewed in [facility] EGD (04/11/20): Findings: ?Esophagogastric landmarks were identified: [...] 6-8 weeks to ?confirm healing of ulcer ASSESSMENT & PLAN: 39/F hx likely EtOH cirrhosis (newly dx, never bx-confirmed) adm 04/26 with persistent leukocytosis, worsening peripheral edema and ascites. Recent admission 04/11-04/17 in hemorrhagic shock 2/2 spurting gastric ulcer s/p clipping followed by GDA embolization (04/11). Has remained sober since that time and motivated to remain so. Discussed transfer with [facility] for expedited transplant eval and exceptions pathway who recommended outpatient eval. Started on prednisolone 04/30 for worsening hyperbilirubinemia w/ some improvement in her T bili. Lille score promising. Attempted diuresis for ascites and leg edema w/ development of oliguric BRIA, now improved with holding diuretics and giving volume. Recommendations: - Check CXR - Daily CBC, CMP, INR - Daily Cr, replete lytes PRN, strict I/Os, daily weights - No NSAIDs - 2g Na diet, OK to ease fluid restriction given improvement in serum Na - Up and OOB as tolerated, physical therapy - Recommend compression stockings for leg edema - PO PPI BID - Thiamine, folate - Hold diuretics again today - Primary team planning para, replete losses with albumin - Would hold on midodrine/octreotide - Continue prednisolone 40mg daily for 4 week course followed by taper (decrease daily dose by 10mg each week). - Team planning transfer to [facility] Patient seen with Dr. Joseph. Kei Nunes MD PGY-4, Gastroenterology ADDENDUM: I interviewed and examined Ms Cowan and I agree with the assessment and plan as outlined. Kei Nunes MD - 05/05/2020 6:41 PM EDT Images from the original note were not included. DIVISION OF GASTROENTEROLOGY & HEPATOLOGY CONSULT PROGRESS NOTE NAME: Violet Cowan : 1980 INTERVAL: - In better spirits today - Continues on prednisolone, today is day 6 - T bili slowly downtrending (now 17), prelim Lille promising, MELD-Na 33 - Development of BRIA (Cr 1.5) on diuresis Past Medical, Surgical, Family History unchanged from initial consult note MEDICATIONS Scheduled: ??? prednisoLONE 40 mg Oral Daily ??? acamprosate DR 666 mg Oral TID ??? folic acid 1 mg Oral Daily ??? multivitamin with minerals 1 tablet Oral Daily ??? pantoprazole EC 40 mg Oral BID ??? thiamine 100 mg Oral Daily ??? sodium chloride 0.9 % (flush) 5 mL Intravenous BID PRN: ondansetron, ondansetron ODT, dextromethorphan-guaiFENesin, acetaminophen, sodium chloride 0.9 % (flush), lidocaine No Known Allergies Vitals: T Temp: [36.5 ??C (97.7 ??F)-37 ??C (98.6 ??F)] HR Heart Rate: [86-88] BP BP: (94-102)/(57-64) RR Resp: [16-19] SpO2 SpO2: [87 %-94 %] 05/04 701 - 05/05 07 In: 220 [P.O.:220] Out: 1675 [Urine:1675] Wt Last 78.7 kg (173 lb 9.6 oz) Admit 85.59 kg Physical Exam: GEN: Awake, alert, oriented, no acute distress HEENT: scleral icterus RESP: CTAB CARDIAC: RRR, normal S1/S2, no appreciable murmurs ABDOMEN: Soft, non-tender, distended, normoactive bowel sounds EXTREM: Warm, 2+ b/l edema to thighs, non-tender to palpation NEURO: Grossly intact, moves all extremities, no asterixis SKIN: Jaundice Labs: CBC: Recent Labs 05/05/2044005/04/2031705/03/2051005/02/20 0604 05/01/20 0511 04/30/20 1024 04/29/20 0358 WBC 32.9* 29.1* 35.5* 33.0* 26.9* 30.7* 29.2* HGB 9.5* 9.6* 10.6* 10.3* 10.2* 10.2* 9.8* HCT 29.0* 29.5* 31.5* 30.9* 30.4* 30.5* 28.3* MCV 85.5 86.8 86.5 88.0 86.6 86.9 85.8 RDWCV 18.2* 18.5* 18.8* 19.1* 18.7* 18.5* 18.6* COAG: Recent Labs 05/05/2044005/04/2031705/03/20 0511 05/02/20 0604 05/01/20 0504/30/20 1024 04/29/20 0358 PTT 37 37 39* 41* 45* 45* 47* INR 2.5 2.4 2.2 2.4 2.9 2.8 2.7 CHEM: Recent Labs 05/05/2044005/04/2031705/03/20 0511 05/02/20 0604 05/01/20 0504/30/20 1024 04/29/20 0358 GLUCOSE 106 122 116 119 148 137 -- NA 134* 135 134* 135 133* 134* 135 K 4.5 4.3 4.2 4.2 4.1 3.4* 3.5 CL 98 100 99 100 100 99 101 CO2 26 26 26 21* 24 23 24 BUN 21* 20* 17 10 6* 5* 7* CREATININE 1.56* 1.02 0.93 0.92 0.69* 0.66* 0.70 ALBUMIN 2.6* 2.6* 2.9* 2.6* 2.6* 2.6* 2.7* MAGNESIUM 0.91 0.93 1.00 0.95 0.97 -- -- CALCIUM 8.4* 8.4* 8.9 8.7 8.5 8.4* 8.3* HEPATIC: Recent Labs 05/05/20 0441 05/04/20 0318 05/03/20 0511 05/02/20 0604 05/01/20 0511 04/30/20 1024 04/29/20 0358 ALKPHOS 121* 143* 137* 136* 127* 119* 110* ALT 48* 43* 35* 28 27 25 26 AST 207* 206* 201* 150* 178* 205* 171* BILITOT 17.6* 17.7* 21.4* 21.1* 21.2* 21.5* 19.7* BILIDIR -- -- -- -- >10.0* -- -- MELD-Na score: 33 at 05/05/2020 4:41 AM MELD score: 32 at 05/05/2020 4:41 AM Calculated from: Serum Creatinine: 1.56 mg/dL at 05/05/2020 4:41 AM Serum Sodium: 134 mmol/L at 05/05/2020 4:41 AM Total Bilirubin: 17.6 mg/dL at 05/05/2020 4:41 AM INR(ratio): 2.5 at 05/05/2020 4:41 AM Age: 39 years 4 months Imaging: Images and reports personally reviewed in [facility] IR Paracentesis Final Result XR Chest PA & Lateral (Generic) Final Result Linear atelectasis in the right midlung. Trace left pleural effusion. Thank you for letting us participate in the care of this patient. For questions regarding this report, please contact the number below. Electronically signed by: CORNELIUS BOURNE DO, [facility] ([phone]), at 04/26/2020 2:41 PM Film Library- Storage Only DX Chest Final Result Endoscopy: Images and reports personally reviewed in [facility] EGD (04/11/20): Findings: ?Esophagogastric landmarks were identified: [...] 6-8 weeks to ?confirm healing of ulcer ASSESSMENT & PLAN: 39/F hx likely EtOH cirrhosis (newly dx, never bx-confirmed) adm 04/26 with persistent leukocytosis, worsening peripheral edema and ascites. Recent admission 04/11-04/17 in hemorrhagic shock 2/2 spurting gastric ulcer s/p clipping followed by GDA embolization (04/11). Has remained sober since that time and motivated to remain so. Discussed transfer with [facility] for expedited transplant eval and exceptions pathway who recommended outpatient eval. Started on prednisolone 04/30 for worsening hyperbilirubinemia w/ some improvement in her T bili. Lille at day 4 promising. Attempted diuresis for ascites and legedema w/ development of oliguric BRIA. Suspect this is related to intravascular depletion / pre-renalrather than HRS. Recommendations: - Daily CBC, CMP, INR - Daily Cr, replete lytes PRN, strict I/Os, daily weights - UA, ucx if indicated, Judy, U Pro/Cr ratio - No NSAIDs - 2g Na diet, OK to ease fluid restriction given improvement in serum Na - Up and OOB as tolerated, physical therapy - Recommend compression stockings for leg edema - PO PPI BID - Thiamine, folate - Hold diuretics for now, give albumin 1g/kg today - Would hold on midodrine/octreotide for now - Renal U/S if not improving with diuretics held and albumin - Continue prednisolone 40mg daily, prelim Priscilla promising. Anticipate 4 week course followed by taper (decrease daily dose by 10mg each week). - Has outpatient F/U with Hepatology provisionally on 05/09 - Repeat EGD in 6-8 weeks to assess for gastric ulcer healing requested Patient discussed with Dr. Joseph. Kei Nunes MD PGY-4, Gastroenterology Eve Yary N - 05/05/2020 2:57 PM EDT Nutrition Services Note - Low Nutrition Acuity Violet Cowan is a 39 y.o. female Reason for intervention: follow up Nutrition Plan: Continue current diet. Added yogurt and fruit cup snacks in between meals. Multivitamin with minerals. Ensure Compact (on fluid restriction) added 2x/day. Monitor weight. Encourage good oral intake. Support and encouragement provided. Pt was seen for f/u after diet education provided. Pt with fully improved appetite. Pt stated that she is starving all the time and requesting snacks. This blog writer will provide yogurt and fruit cup snacks in between meals. Pt also mentioned that she is used to drinking Ensure at home 2x/day. This blog writer will provide Ensure Compact d/t to her fluid restriction. This blog writer also informed pt that if she is still hungry, she can order double portions of the protein in her meals. Pt very appreciative for this. Nutrition Services will continue to monitor and f/u with pt as needed. Active Orders Diet Low Sodium diet 2 GM NA; High Protein; 2000 mL FLUID Frequency: Effective Now Number of Occurrences: Until Specified Admit Weight: 85.59 kg Estimated body mass index is 27.19 kg/m?? as calculated from the following: Height as of this encounter: 170.2 cm (5' 7). Weight as of this encounter: 78.7 kg (173 lb 9.6 oz). Wt Readings from Last 5 Encounters: 05/05/20 78.7 kg (173 lb 9.6 oz) 04/14/20 80.8 kg (178 lb 2.1 oz) Weight loss: not clinically significant. Fluid loss. Appetite: Excellent (75%-100%) Food allergies:no known food allergies Chewing/Swallowing difficulty: none Nausea/Vomiting: no nausea and no vomiting Last Bowel Movement: 05/04/20 Patient education / questions: all nutrition related questions answered at this time Nutrition services to follow weekly through hospital course unless consulted in the interim. Yary Prado Pager: [phone] Moi Reyes MD - 05/05/2020 12:52 PM EDT Hospital Medicine Resident Note Patient Description: Violet Cowan??is a 39 y.o.??female??w/ PMH of??alcohol use??disorder,??likely alcoholic??cirrhosis, and medically managed microprolactinoma??re-admitted to Hospital Medicine service due to fulminant alcoholic hepatitis. Current Active Issues Fulminant alcoholic hepatitis Decompensated alcoholic cirrhosis Major 24 Hour Events: -Got Day 5 of 7 of prednisolone yesterday -Yesterday received furosemide 20mg x1 and Spironolactone 50mg x1 Physical Exam Vital signs: Afebrile HR 80s-90s SBPs 90s-100s, DBPs 50s-60s RR 16-18 Satting in low 90%s on RA General: Jaundiced female laying in bed in no acute distress. HEENT: Normocephalic and atraumatic. Sclerae are jaundiced. Mucosal membranes are moist. Cardiovascular: Regular rate and rhythm, no gallops, rubs, or murmurs. Respiratory: Lungs clear to auscultation bilaterally. Abdomen: Soft but distended. Non-taut. Non-tender throughout, except some very mild tenderness to palpation over the right upper quadrant. Extremities: Warm and well-perfused. There is 2+ pitting edema up to the knees bilaterally. Integument: Skin is warm and dry. Skin is very jaundiced. Neurological: Awake, alert, and fully oriented. No focal deficits. No asterixis or tremulousness. I/O: Intake/Output Summary (Last 24 hours) at 05/05/2020 1252 Last data filed at 05/05/2020 1200 Gross per 24 hour Intake 960 ml Output 975 ml Net -15 ml Pertinent Labs in Last 24 Hours and Micro WBC at 32.9 Hgb stable at 9.5 INR slowly uptrending, now up to 2.5 Serum Cr up to 1.56 Tot bili down stable at 17.6 Radiology/Studies in Last 24 Hours None Active Problems with Plan Violet Cowan??is a 39 y.o.??female??w/ PMH of??alcohol use??disorder,??likely alcoholic??cirrhosis, and medically managed microprolactinoma??re-admitted to Hospital Medicine service due to fulminant alcoholic hepatitis. Today is day 6 of 7 for a prednisone trial for her alcoholic hepatitis. Slowly uptrending INR is concerning especially given that she received 3 days of vit K 10mg PO for Tue-Tue-Tue, with other markers of liver function essentially stable or may be slightly improving over the past couple days. More concerning at this moment is her renal function, with her demonstrating an acute renal injury following increased but still low doses of Lasix-Aldactone yesterday. Will hold further additional diuretics for today. Also, discussing this further with gastroenterology and newly consulting nephrology; trialing her with a 1g/kg albumin challenge today per GI fellow. Rest of plan per below. Neurological: No active issues Cardiovascular: No active issues Pulmonary: No active issues Gastrointestinal: #Fulminant alcoholic hepatitis #Decompensated alcoholic cirrhosis -Day 6 of 7 of prednisolone today for alc hep -s/p 3 days of Vit K 10mg PO daily (05/02-05/04) -Holding diuretics due to BRIA -Arranging outpatient clinic visit at [facility] for liver transplantation eval -GI consulted, recs appreciated -Daily CBC, CMP Renal/Metabolic: #Acute renal injury -Etiology unclear; low but present index of concern for HRS -Dosing today w/ 1g/kg of albumin challenge -Consulting Nephrology today, ordered urine lytes & osm per their prelim recs Infectious: No active issues Endocrinological: No active issues Hematological: No active issues Dermatological: No active issues Nutrition: Regular diet Prophylaxis: GI: pantoprazole DVT: holding given coagulopathy Glycemic control: None needed Summary of Major Changes in Plan: -Day 6 of 7 of steroids -1g/kg albumin challenge -Consulted Nephrology and ordered urine lytes and urine osm Moi Reyes MD Internal Medicine PGY-2 M2 Blue Team, Pager #[phone] 05/05/20 Associated attestation - Carlitos Taveras MD - 05/05/2020 6:37 PM EDT [facility] Critical Care Addendum I certify the patient meets inpatient status criteria. IS PATIENT CRITICALLY ILL? Is there a high potential of sudden, clinically significant, or life threatening deterioration? Yes Is there a need for direct personal assessment and management to treat/prevent multiple vital organ failure/deterioration? Yes Please see Dr. Reyes's note for details of the patient history [...] only procedure list (status C) due to: decompensated cirrhosis Ascites and lower extremity edema persistent. With even low-dose diuresis, we have not been able to avoid BRIA, serum creatinine was increased to 1.5 today. Thus, we will hold diuresis and give an albumin challenge. Hold on octreotide for now. I am concerned for hepatorenal syndrome. Her INR is also elevated, likely due to coagulopathy of cirrhosis. We have attempted multiple rounds of IV vitamin K, to no avail. Her bilirubin remains persistently elevated due to acute liver failure/alcoholic hepatitis, despite steroids. Case discussed with [facility] transplant center, Violet was tentatively accepted for inpatient transplant evaluation pending insurance acceptance. CRITICAL ILLNESS DIAGNOSES: Ascites Req Treatment Acute Renal Failure Acute Liver Failure Coagulopathy Req Active Treatment TIME spent on the grayson excluding procedures: 35 minutes (11:00-11:35) Isha Franklin MD - 05/04/2020 11:26 AM EDT Images from the original note were not included. Inpatient Medicine Progress Note ID: Violet Cowan is a 39 y.o. female w/ PMH of alcohol use disorder,??likely alcoholic??cirrhosis, medically managed microprolactinoma??and multiple recent admission. Originally she required admission for hemorrhagic shock secondary to a bleeding pre-pyloric ulcer s/p EGD clipping and IR emboliza tion??who represented??in transfer last week with fever, leukocytosis and jaundice now being transferred after f/u lab work showed worsening leukocytosis. 24 hr events: - No acute events overnight - still c/o significant leg pain/swelling - very anxious and sad about her prognosis this morning Meds: Continuous Infusions: Scheduled Meds: ??? prednisoLONE 40 mg Oral Daily ??? acamprosate DR 666 mg Oral TID ??? folic acid 1 mg Oral Daily ??? multivitamin with minerals 1 tablet Oral Daily ??? pantoprazole EC 40 mg Oral BID ??? thiamine 100 mg Oral Daily ??? sodium chloride 0.9 % (flush) 5 mL Intravenous BID PRN Meds:.ondansetron, ondansetron ODT, dextromethorphan-guaiFENesin, acetaminophen, sodium chloride0.9 % (flush), lidocaine Vital Signs: Last value Range last 24 hrs Temperature Temp: 37 ??C (98.6 ??F) Temp: [36.6 ??C (97.9 ??F)-37 ??C (98.6 ??F)] Heart Rate Heart Rate: (!) 107 Heart Rate: -- Blood Pressure BP: 98/63 BP: (87-103)/(50-63) Respiratory Rate Resp: 18 Resp: [16-18] SpO2 SpO2: 94 % SpO2: [89 %-94 %] Patient Vitals for the past 168 hrs: Weight 05/04/20 0612 79 kg (174 lb 1.6 oz) 05/03/20 0636 80.1 kg (176 lb 8 oz) 05/02/20 0628 80.5 kg (177 lb 6.4 oz) 05/01/20 0534 80.7 kg (177 lb 14.4 oz) 04/30/20 0619 80.9 kg (178 lb 4.8 oz) 04/29/20 0143 84.6 kg (186 lb 8 oz) 04/28/20 0701 84.6 kg (186 lb 8 oz) I/O: Intake/Output Summary (Last 24 hours) at 05/04/2020 1126 Last data filed at 05/04/2020 1041 Gross per 24 hour Intake 340 ml Output 1950 ml Net -1610 ml Physical Exam: Gen: in bed in NAD; alert, oriented, interactive HEENT: scleral icterus, MMM CV: RRR, normal S1/S2, no m/r/g Resp: CTAB, no distress Abd: +BS, soft, NTD, somewhat distended but not rigid Ext: WWP, no cyanosis, no clubbing, 2+ DP pulses, signficant pitting edema bilaterally Neuro: no focal deficits noted, CN II-XII grossly intact, moves all extremities spontaneously Skin: jaundiced, no rashes, lesions, or ulcerations noted Labs Recent Labs 05/04/2031705/03/20 0511 05/02/20 0604 WBC 29.1* 35.5* 33.0* HGB 9.6* 10.6* 10.3* HCT 29.5* 31.5* 30.9* PLATELET 264 335 380* Recent Labs 05/04/2031705/03/20 0511 05/02/20 0604 NA 135 134* 135 K 4.3 4.2 4.2 CL 100 99 100 CO2 26 26 21* BUN 20* 17 10 CREATININE 1.02 0.93 0.92 Recent Labs 05/04/2031705/03/20 0511 05/02/20 0604 05/01/20 0511 AST 206* 201* 150* 178* ALT 43* 35* 28 27 ALKPHOS 143* 137* 136* 127* BILITOT 17.7* 21.4* 21.1* 21.2* BILIDIR -- -- -- >10.0* Recent Labs 05/04/2031705/03/20 0511 05/02/20 0604 CALCIUM 8.4* 8.9 8.7 MAGNESIUM 0.93 1.00 0.95 PHOS 3.1 3.3 3.1 Recent Labs 05/04/20 0318 05/03/20 0511 05/02/20 0604 INR 2.4 2.2 2.4 PT 27.2* 25.8* 27.6* PTT 37 39* 41* No results for input(s): CK, TROPONINT in the last 168 hours. No results for input(s): POCGLU in the last 168 hours. No results for input(s): PROBNP in the last 168 hours. Micro Blood Cx 04/26: NGTD x2 Paracentesis Cx 04/28: NGTD Imaging/Studies: Results for orders placed or performed during the hospital encounter of 04/26/20 XR Chest PA & Lateral (Generic) (Exam End: 04/26/2020 2:38 PM) Impression Linear atelectasis in the right midlung. Trace left pleural effusion. Thank you for letting us participate in the care of this patient. For questions regarding this report, please contact the number below. -Na score: 28 at 05/04/2020 3:18 AM MELD score: 27 at 05/04/2020 3:18 AM Calculated from: Serum Creatinine: 1.02 mg/dL at 05/04/2020 3:18 AM Serum Sodium: 135 mmol/L at 05/04/2020 3:18 AM Total Bilirubin: 17.7 mg/dL at 05/04/2020 3:18 AM INR(ratio): 2.4 at 05/04/2020 3:18 AM Age: 39 years 4 months ASSESSMENT/PLAN: Violet Cowan is a 39 y.o. female w/ PMH notable for alcoholic hepatitis c/b evolving cirrhosisand multiple recent admission as summarized in admission H&P. S/p para 04/29 courtesy of IR. 3.1L removed, sxs improved. Continuing to trend labs (somewhat improved today @ bili: 17; but tenuous). No mental status changes. More ascites on exam today. However, no plan for repeat para as pt is now on steroids and risk of SBP is increased. GI recommended steroids. Pt tolerating well. Cr minimally increased today. Plan for 20mg lasix and 50mg spironolactone today. Will f/u Cr tomorrow. Plan to defer discharge until pt can maintain a stable diuretic regimen. Plan: #??Decompensated Alcoholic Cirrhosis c/b portal hypertension and coagulopathy # fulminant hepatic failure # Alcohol Use Disorder in remission - GI consult - trend daily MELD-Na, 26 on admission, 28 today -??continue??thiamine, folate??and multi-Vit??supplement -??Recent Cirrhosis workup panel was unremarkable, see previous documentation - PO VitK 10mg x 3 doses - MELD labs qd - diuresis while closely monitoring Cr - spironolactone 50mg today - lasix 20mg today - prednisolone 40mg qday (day 5 of 7); Lille score on day 7 - referral to [facility] for potential transplant #Fever #Leukocytosis - f/u blood cx, NGTD - HOLD antibiotics given low concern for infection - No fever since 04/19. Last dose of Zosyn 04/19 @ 0400 - continue to monitor for signs/symptoms of infection?? - s/p para 04/29, Abs PMN's: 7 ?? # Recent??Prepyloric Bleeding Ulcer # Subacute blood loss Anemia - S/p clips x4, GDA embolization earlier this month -??s/p 5 total units PRBC on recent hospitaizations -??continue??PO??PPI bid - Hgb stable -??trend??daily CBC - avoid NSAIDs ?? # Routine: - Prophylaxis: ?GI: PPI??BID ?DVT: Hold AC, SCDs and ambulate?? - Nutrition:??low salt high protein diet - Code Status:??Attempt Cardiopulmonary Resuscitation - Inpatient Isha Franklin MD, PGY-1 Medicine Blue Team (pgr. [phone]) Associated attestation - Carlitos Taveras MD - 05/04/2020 4:54 PM EDT Attending Attestation Please see Dr. Franklin's note for details of the patient history [...] of two midnights or is on the [facility] inpatient only procedure list (status C) due to: decompensated cirrhosis Ascites and lower extremity edema persistent, no worse today. Despite up- trending serum creatinine we will continue diuretics today given the significant volume overload. She may need another paracentesis if diuresis fails, although belly is soft (but distended) today. Calculate Lille score on ~05/06 to determine if longer steroid taper is necessary. Needs EGD in ~4 weeks. [place] [facility] [place] Pending outpatient transplant evaluation with [facility], date/time TBD. Isha Franklin MD - 05/03/2020 8:35 AM EDT Images from the original note were not included. Inpatient Medicine Progress Note ID: Violet Cowan is a 39 y.o. female w/ PMH of alcohol use disorder,??likely alcoholic??cirrhosis, medically managed microprolactinoma??and multiple recent admission. Originally she required admission for hemorrhagic shock secondary to a bleeding pre-pyloric ulcer s/p EGD clipping and IR emboliza tion??who represented??in transfer last week with fever, leukocytosis and jaundice now being transferred after f/u lab work showed worsening leukocytosis. 24 hr events: - No acute events overnight - still c/o significant leg pain/swelling Meds: Continuous Infusions: Scheduled Meds: ??? phytonadione (vitamin K1) 10 mg Oral Daily ??? prednisoLONE 40 mg Oral Daily ??? acamprosate DR 666 mg Oral TID ??? folic acid 1 mg Oral Daily ??? multivitamin with minerals 1 tablet Oral Daily ??? pantoprazole EC 40 mg Oral BID ??? thiamine 100 mg Oral Daily ??? sodium chloride 0.9 % (flush) 5 mL Intravenous BID PRN Meds:.ondansetron, ondansetron ODT, dextromethorphan-guaiFENesin, acetaminophen, sodium chloride0.9 % (flush), lidocaine Vital Signs: Last value Range last 24 hrs Temperature Temp: 36.8 ??C (98.2 ??F) Temp: [36.6 ??C (97.9 ??F)-37 ??C (98.6 ??F)] Heart Rate Heart Rate: (!) 107 Heart Rate: -- Blood Pressure BP: 109/68 BP: (91-109)/(53-68) Respiratory Rate Resp: 18 Resp: [16-18] SpO2 SpO2: 95 % SpO2: [89 %-95 %] Patient Vitals for the past 168 hrs: Weight 05/03/20 0636 80.1 kg (176 lb 8 oz) 05/02/20 0628 80.5 kg (177 lb 6.4 oz) 05/01/20 0534 80.7 kg (177 lb 14.4 oz) 04/30/20 0619 80.9 kg (178 lb 4.8 oz) 04/29/20 0143 84.6 kg (186 lb 8 oz) 04/28/20 0701 84.6 kg (186 lb 8 oz) 04/27/20 0722 84.6 kg (186 lb 9.6 oz) I/O: Intake/Output Summary (Last 24 hours) at 05/03/2020 0835 Last data filed at 05/02/2020 1712 Gross per 24 hour Intake 480 ml Output 850 ml Net -370 ml Physical Exam: Gen: in bed in NAD; alert, oriented, interactive HEENT: scleral icterus, MMM CV: RRR, normal S1/S2, no m/r/g Resp: CTAB, no distress Abd: +BS, soft, NTD, somewhat distended but not rigid Ext: WWP, no cyanosis, no clubbing, 2+ DP pulses, signficant pitting edema bilaterally Neuro: no focal deficits noted, CN II-XII grossly intact, moves all extremities spontaneously Skin: jaundiced, no rashes, lesions, or ulcerations noted Labs Recent Labs 05/03/20 0511 05/02/20 0604 05/01/20 0511 WBC 35.5* 33.0* 26.9* HGB 10.6* 10.3* 10.2* HCT 31.5* 30.9* 30.4* PLATELET 335 380* 342 Recent Labs 05/03/20 0511 05/02/20 0604 05/01/20 0511 NA 134* 135 133* K 4.2 4.2 4.1 CL 99 100 100 CO2 26 21* 24 BUN 17 10 6* CREATININE 0.93 0.92 0.69* Recent Labs 05/03/20 0511 05/02/20 0604 05/01/20 0511 AST 201* 150* 178* ALT 35* 28 27 ALKPHOS 137* 136* 127* BILITOT 21.4* 21.1* 21.2* BILIDIR -- -- >10.0* Recent Labs 05/03/20 0511 05/02/20 0604 05/01/20 0511 CALCIUM 8.9 8.7 8.5 MAGNESIUM 1.00 0.95 0.97 PHOS 3.3 3.1 2.9 Recent Labs 05/03/20 0511 05/02/20 0604 05/01/20 0511 INR 2.2 2.4 2.9 PT 25.8* 27.6* 32.8* PTT 39* 41* 45* No results for input(s): CK, TROPONINT in the last 168 hours. No results for input(s): POCGLU in the last 168 hours. No results for input(s): PROBNP in the last 168 hours. Micro Blood Cx 04/26: NGTD x2 Paracentesis Cx 04/28: NGTD Imaging/Studies: Results for orders placed or performed during the hospital encounter of 04/26/20 XR Chest PA & Lateral (Generic) (Exam End: 04/26/2020 2:38 PM) Impression Linear atelectasis in the right midlung. Trace left pleural effusion. Thank you for letting us participate in the care of this patient. For questions regarding this report, please contact the number below. Electronically signed by: CORNELIUS BOURNE DO, [facility] ([phone]), at 04/26/2020 2:41 PM MELD-Na score: 28 at 05/03/2020 5:11 AM MELD score: 27 at 05/03/2020 5:11 AM Calculated from: Serum Creatinine: 0.93 mg/dL (Rounded to 1 mg/dL) at 05/03/2020 5:11 AM Serum Sodium: 134 mmol/L at 05/03/2020 5:11 AM Total Bilirubin: 21.4 mg/dL at 05/03/2020 5:11 AM INR(ratio): 2.2 at 05/03/2020 5:11 AM Age: 39 years 4 months ASSESSMENT/PLAN: Violet Cowan is a 39 y.o. female w/ PMH notable for alcoholic hepatitis c/b evolving cirrhosisand multiple recent admission as summarized in admission H&P. S/p para 04/28 courtesy of IR. 3.1L removed, sxs improved. Continuing to trend labs. No mental statuschanges. More ascites on exam today. However, no plan for repeat para as pt is now on steroids and risk of SBP is increased. GI recommended steroids. Pt tolerating well. Cr stable w/ 25mg spironolactone, 20mg lasix. However, still very edematous. Discussed prognosis with patient and patient's . Discussed plans around discharge/symptom management/goals of care. Labs somewhat stabilized today. INR improved, but s/p VitK yesterday. Pt wouldlike to spend another night in the hospital to optimize her symptom control and discharge plan, and then would like to go home tomorrow. ?? #??Decompensated Alcoholic Cirrhosis c/b portal hypertension and coagulopathy # fulminant hepatic failure # Alcohol Use Disorder in remission - GI consult - trend daily MELD-Na, 26 on admission, 28 today -??continue??thiamine, folate??and multi-Vit??supplement -??Recent Cirrhosis workup panel was unremarkable, see previous documentation - PO VitK 10mg x 3 doses - MELD labs qd - spironolactone 25mg qd - lasix 20mg qd - prednisolone 40mg qday (day 4 of 7); Lille score on day 7 - referral to [facility] for potential transplant #Fever #Leukocytosis - f/u blood cx, NGTD - HOLD antibiotics given low concern for infection - No fever since 04/19. Last dose of Zosyn 04/19 @ 0400 - continue to monitor for signs/symptoms of infection?? - s/p para 04/29, Abs PMN's: 7 ?? # Recent??Prepyloric Bleeding Ulcer # Subacute blood loss Anemia - S/p clips x4, GDA embolization earlier this month -??s/p 5 total units PRBC on recent hospitaizations -??continue??PO??PPI bid - Hgb stable -??trend??daily CBC - avoid NSAIDs ?? # Routine: - Prophylaxis: ?GI: PPI??BID ?DVT: Hold AC, SCDs and ambulate?? - Nutrition:??low salt high protein diet - Code Status:??Attempt Cardiopulmonary Resuscitation - Inpatient Isha Franklin MD, PGY-1 Medicine Blue Team (pgr. [phone]) Associated attestation - Carlitos Taveras MD - 05/03/2020 5:01 PM EDT Attending Attestation Please see Dr. Franklin's note for details of the patient history [...] only procedure list (status C) due to: decompensated cirrhosis Ascites and lower extremity edema worsening. Despite up-trending serum creatinine we will restart diuretics today and up-titrate as renal function allows. She may need another paracentesis if diuresis fails, although belly is soft (but distended) today. Calculate Lille score on ~05/06 to determine if lo nger steroid taper is necessary. Needs EGD in ~4 weeks. [place] [facility] [place]. Pending outpatient transplant evaluation with [facility], date/time TBD. Michelle Gerber MD - 05/03/2020 8:00 AM EDT Images from the original note were not included. DIVISION OF GASTROENTEROLOGY & HEPATOLOGY CONSULT PROGRESS NOTE NAME: Violet Cowan : 1980 INTERVAL: - Continues on prednisolone -SpO2 89-91% on RA; BP stable, 90/50s -Feels a lot more distended today, more swelling in her legs. Hard to move around. Not as bad as prior to her first para; no F/chills, no new abdominal pain. Past Medical, Surgical, Family History unchanged from initial consult note MEDICATIONS Scheduled: ??? phytonadione (vitamin K1) 10 mg Oral Daily ??? prednisoLONE 40 mg Oral Daily ??? acamprosate DR 666 mg Oral TID ??? folic acid 1 mg Oral Daily ??? multivitamin with minerals 1 tablet Oral Daily ??? pantoprazole EC 40 mg Oral BID ??? thiamine 100 mg Oral Daily ??? sodium chloride 0.9 % (flush) 5 mL Intravenous BID PRN: ondansetron, ondansetron ODT, dextromethorphan-guaiFENesin, acetaminophen, sodium chloride 0.9 % (flush), lidocaine No Known Allergies Vitals: T Temp: [36.6 ??C (97.9 ??F)-37 ??C (98.6 ??F)] HR Heart Rate: -- BP BP: (91-107)/(53-61) RR Resp: [16-18] SpO2 SpO2: [89 %-93 %] IO 05/02 0701 - 05/03 0700 In: 720 [P.O.:720] Out: 950 [Urine:950] Wt Last 80.1 kg (176 lb 8 oz) Admit 85.59 kg Physical Exam: GEN: Awake, alert, oriented, no acute distress HEENT: scleral icterus RESP: CTAB CARDIAC: RRR, normal S1/S2, no appreciable murmurs ABDOMEN: Soft, non-tender, distended, normoactive bowel sounds EXTREM: Warm, 2+ b/l edema to thighs, non-tender to palpation NEURO: Grossly intact, moves all extremities, no asterixis SKIN: Jaundice Labs: CBC: Recent Labs 05/03/20 0511 05/02/20 0604 05/01/20 0511 04/30/20 1024 04/29/20 0358 09/28/52004/27/20 0435 WBC 35.5* 33.0* 26.9* 30.7* 29.2* 24.1* 22.8* HGB 10.6* 10.3* 10.2* 10.2* 9.8* 9.8* 9.6* HCT 31.5* 30.9* 30.4* 30.5* 28.3* 29.9* 28.8* MCV 86.5 88.0 86.6 86.9 85.8 87.9 87.5 RDWCV 18.8* 19.1* 18.7* 18.5* 18.6* 18.6* 18.6* COAG: Recent Labs 05/03/2051005/02/2060305/01/2051004/30/20102304/29/2035704/28/2052004/27/20 0435 PTT 39* 41* 45* 45* 47* 46* 45* INR 2.2 2.4 2.9 2.8 2.7 2.6 2.5 CHEM: Recent Labs 05/03/2051005/02/20 0605/01/2051004/30/20102304/29/2035704/28/2052004/27/20 0435 GLUCOSE 116 119 148 137 -- -- -- NA 134* 135 133* 134* 135 134* 133* K 4.2 4.2 4.1 3.4* 3.5 3.3* 3.5 CL 99 100 100 99 101 100 100 CO2 26 21* 24 23 24 23 24 BUN 17 10 6* 5* 7* 8 7* CREATININE 0.93 0.92 0.69* 0.66* 0.70 1.02 0.70 ALBUMIN 2.9* 2.6* 2.6* 2.6* 2.7* 2.2* 2.2* MAGNESIUM 1.00 0.95 0.97 -- -- -- -- CALCIUM 8.9 8.7 8.5 8.4* 8.3* 8.1* 8.0* HEPATIC: Recent Labs 05/03/2051005/02/2060305/01/2051004/30/20102304/29/2035704/28/20 0521 04/27/20 0435 ALKPHOS 137* 136* 127* 119* 110* 118* 122* ALT 35* 28 27 25 26 28 29 AST 201* 150* 178* 205* 171* 175* 159* BILITOT 21.4* 21.1* 21.2* 21.5* 19.7* 18.1* 16.8* BILIDIR -- -- >10.0* -- -- -- -- INFLAMM: No results for input(s): CRP in the last 168 hours. Invalid input(s): ESR Imaging: Images and reports personally reviewed in [facility] IR Paracentesis Final Result XR Chest PA & Lateral (Generic) Final Result Linear atelectasis in the right midlung. Trace left pleural effusion. Thank you for letting us participate in the care of this patient. For questions regarding this report, please contact the number below. Electronically signed by: CORNELIUS BOURNE DO [facility] ([phone]), at 04/26/2020 2:41 PM Film Library- Storage Only DX Chest Final Result Endoscopy: Images and reports personally reviewed in [facility] EGD (04/11/20): Findings: ?Esophagogastric landmarks were identified: [...] 6-8 weeks to ?confirm healing of ulcer ASSESSMENT & PLAN: 39/F hx likely EtOH cirrhosis (newly dx, never bx-confirmed) adm 04/26 with persistent leukocytosis, worsening peripheral edema and ascites. Recent admission 04/11-04/17 in hemorrhagic shock 2/2 spurting gastric ulcer s/p clipping followed by GDA embolization (04/11). Has remained sober since that time and motivated to remain so. Discussed transfer with [facility] for expedited transplant eval and exceptions pathway who recommended outpatient eval. Started on prednisolone 04/30 for worsening hyperbilirubinemia. MELD-Na score: 28 at 05/03/2020 5:11 AM MELD score: 27 at 05/03/2020 5:11 AM Calculated from: Serum Creatinine: 0.93 mg/dL (Rounded to 1 mg/dL) at 05/03/2020 5:11 AM Serum Sodium: 134 mmol/L at 05/03/2020 5:11 AM Total Bilirubin: 21.4 mg/dL at 05/03/2020 5:11 AM INR(ratio): 2.2 at 05/03/2020 5:11 AM Age: 39 years 4 months Recommendations: - Daily CBC, CMP, INR - Daily Cr, replete lytes PRN, strict I/Os - PO vitamin K 10mg daily for 3 days (05/02-05/04) - No NSAIDs - 2g Na diet, 2L fluid restriction for hypoNa - Up and OOB as tolerated, physical therapy - Consider compression stockings for leg edema - PO PPI BID - Continue diuretics, recommend furosemide 20mg, spironolactone to 50mg to maintain 2:5 ratio. Can uptitrate both Rx as tolerated, and can also be followed up as outpatient to adjust prn. Monitor K levels daily. - If abdominal distention does not improve with diuresis, recommend RUQUS to evaluate for ?PVT - Continue prednisolone 40mg daily. Calculate Lille score on day 7. If >0.45, recommend discontinuing given lack of response. If <0.45, would complete a 4 week course followed by taper (decrease daily dose by 10mg each week) then stop - Thiamine, folate - Consider Psychiatry input given her difficulty with coping with her acute illness - Has outpatient F/U with Hepatology on 05/09 - Repeat EGD in 6-8 weeks to assess for gastric ulcer healing requested Patient seen with Dr. Carroll Gerber MD Gastroenterology PGY-4 05/03/2020 8:00 AM Pager #[phone] Associated attestation - Nolan Hodges MD - 05/03/2020 1:22 PM EDT Attending Addendum: I have seen and examined the patient with Dr. Gerber. We reviewed the medical record and pertinent studies and imaging. My evaluation and physical examination confirms the above findings. The assessment and plan were formulated in discussion with me at the time of the encounter and I agree with them as d ocumented. 39 y.o. female with decompensated ETOH cirrhosis. She is currently on steroids for alcoholic hepatitis and overall doing well but continued ascites and LE edema. Recommend continued sodium/volume restriction and increased diuresis. May need to increase Lasix for 40 mg daily with Spironolactone at 100mg given ongoing edema. PVT has been previoulsy ruled out on multiple images but if continued worsening or not responding to diuretics would plan a repeat US with dopplers. Nolan Hodges MD [facility] [place] Moi Reyes MD - 05/02/2020 12:42 PM EDT Hospital Medicine Resident Note Patient Description: Violet Cowan??is a 39 y.o.??female??w/ PMH of??alcohol use??disorder,??likely alcoholic??cirrhosis, and medically managed microprolactinoma??re-admitted to Hospital Medicine service due to fulminant alcoholic hepatitis. Current Active Issues Fulminant alcoholic hepatitis Decompensated alcoholic cirrhosis Major 24 Hour Events: -Got Day 2 of 7 of prednisolone yesterday -Added on furosemide 20mg qd yesterday to the spironolactone Physical Exam Vital signs: Afebrile HR 80s-100s SBPs 90s-100s, DBPs 50s-60s RR 18-20 Satting in low 90%s on RA General: Jaundiced female laying in bed in no acute distress. HEENT: Normocephalic and atraumatic. Sclerae are jaundiced. Mucosal membranes are moist. Cardiovascular: Regular rate and rhythm, no gallops, rubs, or murmurs. Respiratory: Lungs clear to auscultation bilaterally. Abdomen: Soft and non-distended. Nontender throughout. Extremities: Warm and well-perfused. There is pitting cyanosis up to the knees bilaterally. Integument: Skin is warm and dry. Skin is very jaundiced. Neurological: Awake, alert, and fully oriented. No focal deficits. No asterixis or tremulousness. I/O: Intake/Output Summary (Last 24 hours) at 05/02/2020 1241 Last data filed at 05/02/2020 1029 Gross per 24 hour Intake 240 ml Output 900 ml Net -660 ml Pertinent Labs in Last 24 Hours and Micro WBC increased to 33.0 Hgb stable in 10's INR down to 2.4 Serum Cr up to 0.92 Tot bili down stable at 21.2 Radiology/Studies in Last 24 Hours None Active Problems with Plan Violet Cowan??is a 39 y.o.??female??w/ PMH of??alcohol use??disorder,??likely alcoholic??cirrhosis, and medically managed microprolactinoma??re-admitted to Hospital Medicine service due to fulminant alcoholic hepatitis. Patient's liver function tests are essentially stable from yesterday, though the decline in the INR is somewhat encouraging. There is concern that patient may plateau out at this level of severe liver dysfunction, which be consistent with a fulminant hepatic failure requiring transplantation within the next few weeks to months. [facility] has offered to assessthe patient for transplantation in an outpatient setting: Reaching out to them today to schedule an outpatient clinic visit so that the patient could possibly be safely discharged over the weekend if we feel it is appropriate. Will discharge patient over weekend if her labs remain stable or continue to show improvement. Per recommendation from gastroenterology, will be starting patient on 3 days of oral vitamin K to address any possible nutritional deficiency component of her elevated INR. Will discontinue furosemide if tomorrow's labs show continued rise in serum Cr. Rest of plan per below. Neurological: No active issues Cardiovascular: No active issues Pulmonary: No active issues Gastrointestinal: #Fulminant alcoholic hepatitis #Decompensated alcoholic cirrhosis -Day 3 of 7 of prednisolone today for alc hep -Start: 3 days of oral Vit K per GI -Continue: spironlactone 25mg qd -Continue for now: furosemide 20mg qd -Arranging outpatient clinic visit at [facility] for liver transplantation eval -GI consulted, recs appreciated -Daily CBC, CMP Renal/Metabolic: No active issues Infectious: No active issues Endocrinological: No active issues Hematological: No active issues Dermatological: No active issues Nutrition: Regular diet Prophylaxis: GI: pantoprazole DVT: holding given coagulopathy Glycemic control: None needed Summary of Major Changes in Plan: -Day 3 of 7 of steroids -Starting 3 days of oral Vit K -Arranging outpatient [facility] hepatology visit Moi Reyes MD Internal Medicine PGY-2 M2 Blue Team, Pager #[phone] 05/02/20 Associated attestation - Karina Lantigua MD - 05/02/2020 7:02 PM EDT Attending Attestation Please see Dr. Reyes's note for details of the patient history of presentation and data. I have discussed, reviewed and agree with the documented History, Physical findings, Assessment and Plan of care. 39 y/o with recent admissions initially for UGIB from pylori ulcer requiring clipping and GDA embolization, admitted with worsening liver function in setting of alcoholic hepatitis. Leukcoytosis likelyfrom inflammation with negative infectious work-up including, CXR, para neg SBP, UA. Started prednisolone on 04/30 and monitoring response - INR improved today; bilis stable at 21. Added lasix [id number] and Cr o.7 to 0.9 - reassess Cr tomorrow to determine diuretic dosing. DIscussed with Lisa plan for dc Tuesday if LFTs stable/improving. Has GI f/u here on 05/09 and would need labs and trying to coordinate with [facility] for transplant evaluation. MELD-Na score: 29 at 05/02/2020 6:04 AM MELD score: 28 at 05/02/2020 6:04 AM Calculated from: Serum Creatinine: 0.92 mg/dL (Rounded to 1 mg/dL) at 05/02/2020 6:04 AM Serum Sodium: 135 mmol/L at 05/02/2020 6:04 AM Total Bilirubin: 21.1 mg/dL at 05/02/2020 6:04 AM INR(ratio): 2.4 at 05/02/2020 6:04 AM Age: 39 years 4 months I have examined the patient myself and personally reviewed all studies. In addition, I certify that I am a D-H credentialed attending provider with admitting privileges and that the patient meets or has met medical necessity to require an inpatient IPI level of care meeting a minimum of two midnights or is on the CMS inpatient only procedure list (status C) due to: volume status and alcoholic hepatitis Darren Orantes MSW - 05/02/2020 12:00 PM EDT Followed up with patient to assess emotional needs around pending discharge. Patient was eating lunch. Provided patient with resources/worksheets addressing self-esteem. Patient receptive to the information provided. Will continue to monitor. Following for social work needs and care management support through disposition. Darren Orantes FORENSIC EXAMINER Pager #[phone] Extension [phone] Kei Nunes MD - 05/02/2020 6:14 AM EDT Images from the original note were not included. DIVISION OF GASTROENTEROLOGY & HEPATOLOGY CONSULT PROGRESS NOTE NAME: Violet Cowan : 1980 INTERVAL: - Continues on prednisolone - Very emotional this morning. Concerned about discharge. Her is ill and she is worried she would be a burden on him if she came home. She also has anxiety about being readmitted. Past Medical, Surgical, Family History unchanged from initial consult note MEDICATIONS Scheduled: ??? furosemide 20 mg Oral Daily ??? prednisoLONE 40 mg Oral Daily ??? spironolactone 25 mg Oral Daily ??? acamprosate DR 666 mg Oral TID ??? folic acid 1 mg Oral Daily ??? multivitamin with minerals 1 tablet Oral Daily ??? pantoprazole EC 40 mg Oral BID ??? thiamine 100 mg Oral Daily ??? sodium chloride 0.9 % (flush) 5 mL Intravenous BID PRN: ondansetron, ondansetron ODT, dextromethorphan-guaiFENesin, acetaminophen, sodium chloride 0.9 % (flush), lidocaine No Known Allergies Vitals: T Temp: [36.5 ??C (97.7 ??F)-36.9 ??C (98.4 ??F)] HR Heart Rate: -- BP BP: (92-104)/(57-67) RR Resp: [18-22] SpO2 SpO2: [90 %-92 %] IO 05/01 701 - 05/02 07 In: 240 [P.O.:240] Out: 900 [Urine:900] Wt Last 80.7 kg (177 lb 14.4 oz) Admit 85.59 kg Physical Exam: GEN: Awake, alert, oriented, no acute distress HEENT: scleral icterus RESP: CTAB CARDIAC: RRR, normal S1/S2, no appreciable murmurs ABDOMEN: Soft, non-tender, minimally distended, normoactive bowel sounds EXTREM: Warm, 2+ b/l edema, non-tender to palpation NEURO: Grossly intact, moves all extremities, no asterixis SKIN: Jaundice Labs: CBC: Recent Labs 05/01/2051004/30/20102304/29/2035704/28/2052004/27/2043404/26/20 0635 WBC 26.9* 30.7* 29.2* 24.1* 22.8* 22.4* HGB 10.2* 10.2* 9.8* 9.8* 9.6* 10.0* HCT 30.4* 30.5* 28.3* 29.9* 28.8* 29.2* MCV 86.6 86.9 85.8 87.9 87.5 86.9 RDWCV 18.7* 18.5* 18.6* 18.6* 18.6* 18.7* COAG: Recent Labs 05/01/20 0504/30/20 1024 04/29/2035704/28/2052004/27/20 04304/26/20 0635 PTT 45* 45* 47* 46* 45* 46* INR 2.9 2.8 2.7 2.6 2.5 2.5 CHEM: Recent Labs 05/01/20 0504/30/20 1024 04/29/208 04/28/2052004/27/20 0435 04/26/20 0635 GLUCOSE 148 137 -- -- -- 104 NA 133* 134* 135 134* 133* 132* K 4.1 3.4* 3.5 3.3* 3.5 3.6 CL 100 99 101 100 100 100 CO2 24 23 24 23 24 24 BUN 6* 5* 7* 8 7* 7* CREATININE 0.69* 0.66* 0.70 1.02 0.70 0.72 ALBUMIN 2.6* 2.6* 2.7* 2.2* 2.2* 2.3* MAGNESIUM 0.97 -- -- -- -- 0.85 CALCIUM 8.5 8.4* 8.3* 8.1* 8.0* 8.1* HEPATIC: Recent Labs 05/01/20 0511 04/30/20 1024 04/29/20 0358 04/28/20 0521 04/27/205 04/26/20 0635 ALKPHOS 127* 119* 110* 118* 122* 117* ALT 30 AST 178* 205* 171* 175* 159* 149* BILITOT 21.2* 21.5* 19.7* 18.1* 16.8* 17.4* BILIDIR >10.0* -- -- -- -- >10.0* INFLAMM: No results for input(s): CRP in the last 168 hours. Invalid input(s): ESR MELD-Na score: 31 at 05/01/2020 5:11 AM MELD score: 30 at 05/01/2020 5:11 AM Calculated from: Serum Creatinine: 0.69 mg/dL (Rounded to 1 mg/dL) at 05/01/2020 5:11 AM Serum Sodium: 133 mmol/L at 05/01/2020 5:11 AM Total Bilirubin: 21.2 mg/dL at 05/01/2020 5:11 AM INR(ratio): 2.9 at 05/01/2020 5:11 AM Age: 39 years 4 months Imaging: Images and reports personally reviewed in [facility] IR Paracentesis Final Result XR Chest PA & Lateral (Generic) Final Result Linear atelectasis in the right midlung. Trace left pleural effusion. Thank you for letting us participate in the care of this patient. For questions regarding this report, please contact the number below. Film Library- Storage Only DX Chest Final Result Endoscopy: Images and reports personally reviewed in [facility] EGD (04/11/20): Findings: ?Esophagogastric landmarks were identified: [...] 6-8 weeks to ?confirm healing of ulcer ASSESSMENT & PLAN: 39/F hx likely EtOH cirrhosis (newly dx, never bx-confirmed) adm 04/26 with persistent leukocytosis, worsening peripheral edema and ascites. Recent admission 04/11-04/17 in hemorrhagic shock 2/2 spurting gastric ulcer s/p clipping followed by GDA embolization (04/11). Has remained sober since that time and motivated to remain so. Discussed transfer with [facility] for expedited transplant eval and exceptions pathway who recommended outpatient eval. Started on prednisolone 04/30 for worsening hyperbilirubinemia. Recommendations: - Daily CBC, CMP, INR - Daily Cr, replete lytes PRN, strict I/Os - PO vitamin K 10mg daily for 3 days for any nutritional component to coagulopathy - No NSAIDs - 2g Na diet, 2L fluid restriction for hypoNa - Up and OOB as tolerated, physical therapy - Consider compression stockings for leg edema - PO PPI BID - Continue diuretics, now on PO Lasix 20mg, PO spironolactone 25mg. Consider increasing spironolactone to 50mg to maintain 2:5 ratio. Can uptitrate both Rx as tolerated. Monitor K levels daily. - Continue prednisolone 40mg daily. Calculate Lille score on day 7. If >0.45, recommend discontinuing given lack of response. If <0.45, would complete a 4 week course followed by taper (decrease daily dose by 10mg each week) then stop - Thiamine, folate - Consider Psychiatry input given her difficulty with coping with her acute illness - Has outpatient F/U with Hepatology on 05/09 - Repeat EGD in 6-8 weeks to assess for gastric ulcer healing requested Patient seen with Dr. Whatley. Kei Nunes MD PGY-4, Gastroenterology Associated attestation - Rajendra Whatley MD - 05/02/2020 1:42 PM EDT I have independently seen and examined the patient, and have reviewed the resident???s above note, and agree with the documented history, physical findings, and study results; my evaluation of the patient is below: Met with Ms Cowan this morning, clinically stable on steroids. Will continue to monitor her course, with plan for transplant evaluation at [facility] MD Rolanda Nino John J, FORENSIC EXAMINER - 05/01/2020 3:05 PM EDT Met with patient to assess for psychosocial needs. Patient shared that she is happy to be alive andnever wants to drink again. When I explored this further with Violet she identified that she values her family. She reported that she wants to get back to life without alcohol. She shared that after her father life became complicated and it became more challenging when her child was born. We discussed coping mechanisms and she reported that this is an area of her life that she needs to work on. She identified that her family is supportive. Provided education around [place] AD. Patient will discuss with family when they visit. Following for social work needs and care management support through disposition. Darren Orantes FORENSIC EXAMINER Pager #[phone] Extension [phone] Isha Franklin MD - 05/01/2020 6:32 AM EDT Images from the original note were not included. Inpatient Medicine Progress Note ID: Violet Cowan is a 39 y.o. female w/ PMH of alcohol use disorder,??likely alcoholic??cirrhosis, medically managed microprolactinoma??and multiple recent admission. Originally she required admission for hemorrhagic shock secondary to a bleeding pre-pyloric ulcer s/p EGD clipping and IR emboliza tion??who represented??in transfer last week with fever, leukocytosis and jaundice now being transferred after f/u lab work showed worsening leukocytosis. 24 hr events: - No acute events overnight - stable leg/abd swelling - small blood clot w/ BM last night; reports consistent w/ previous GI blood from hemorrhoids. Smallamnt of blood on surface of stool, no blood in stool, no melena, no abd pain, n/v/d Meds: Continuous Infusions: Scheduled Meds: ??? prednisoLONE 40 mg Oral Daily ??? spironolactone 25 mg Oral Daily ??? acamprosate DR 666 mg Oral TID ??? folic acid 1 mg Oral Daily ??? multivitamin with minerals 1 tablet Oral Daily ??? pantoprazole EC 40 mg Oral BID ??? thiamine 100 mg Oral Daily ??? sodium chloride 0.9 % (flush) 5 mL Intravenous BID PRN Meds:.ondansetron, ondansetron ODT, dextromethorphan-guaiFENesin, acetaminophen, sodium chloride0.9 % (flush), lidocaine Vital Signs: Last value Range last 24 hrs Temperature Temp: 36.8 ??C (98.2 ??F) Temp: [36.8 ??C (98.2 ??F)-37.1 ??C (98.8 ??F)] Heart Rate Heart Rate: (!) 107 Heart Rate: -- Blood Pressure BP: 95/58 BP: (95-101)/(57-59) Respiratory Rate Resp: 20 Resp: [18-22] SpO2 SpO2: 93 % SpO2: [89 %-93 %] Patient Vitals for the past 168 hrs: Weight 05/01/20 0534 80.7 kg (177 lb 14.4 oz) 04/30/20 0619 80.9 kg (178 lb 4.8 oz) 04/29/20 0143 84.6 kg (186 lb 8 oz) 04/28/20 0701 84.6 kg (186 lb 8 oz) 04/27/20 0722 84.6 kg (186 lb 9.6 oz) 04/26/20 0447 85.6 kg (188 lb 11.2 oz) I/O: Intake/Output Summary (Last 24 hours) at 05/01/2020 0632 Last data filed at 05/01/2020 0520 Gross per 24 hour Intake 245 ml Output 900 ml Net -655 ml Physical Exam: Gen: in bed in NAD; alert, oriented, interactive HEENT: scleral icterus, MMM CV: RRR, normal S1/S2, no m/r/g Resp: CTAB, no distress Abd: +BS, soft, NTD, somewhat distended but not rigid Ext: WWP, no cyanosis, no clubbing, 2+ DP pulses, signficant pitting edema bilaterally Neuro: no focal deficits noted, CN II-XII grossly intact, moves all extremities spontaneously Skin: jaundiced, no rashes, lesions, or ulcerations noted Labs Recent Labs 05/01/2051004/30/20 1024 04/29/20 0358 WBC 26.9* 30.7* 29.2* HGB 10.2* 10.2* 9.8* HCT 30.4* 30.5* 28.3* PLATELET 342 381* 465* Recent Labs 05/01/20 0504/30/20 1024 04/29/20 0358 04/28/20 0521 NA 133* 134* 135 134* K 4.1 3.4* 3.5 3.3* CL 100 99 101 100 CO2 24 23 24 23 BUN 6* 5* 7* 8 CREATININE -- 0.66* 0.70 1.02 Recent Labs 05/01/20 0504/30/20 1024 04/29/20 0358 04/26/20 0635 AST 178* 205* 171* < > 149* ALT 27 25 26 < > 30 ALKPHOS 127* 119* 110* < > 117* BILITOT 21.2* 21.5* 19.7* < > 17.4* BILIDIR -- -- -- -- >10.0* < > = values in this interval not displayed. Recent Labs 05/01/20 0511 04/30/20 1024 04/29/20 0358 04/26/20 0635 CALCIUM 8.5 8.4* 8.3* < > 8.1* MAGNESIUM 0.97 -- -- -- 0.85 PHOS 2.9 -- -- -- 2.7 < > = values in this interval not displayed. Recent Labs 05/01/20 0511 04/30/20 1024 04/29/20 0358 INR 2.9 2.8 2.7 PT 32.8* 32.4* 31.4* PTT 45* 45* 47* No results for input(s): CK, TROPONINT in the last 168 hours. No results for input(s): POCGLU in the last 168 hours. No results for input(s): PROBNP in the last 168 hours. Micro Blood Cx 04/26: NGTD x2 Paracentesis Cx 04/28: NGTD Imaging/Studies: Results for orders placed or performed during the hospital encounter of 04/26/20 XR Chest PA & Lateral (Generic) (Exam End: 04/26/2020 2:38 PM) Impression Linear atelectasis in the right midlung. Trace left pleural effusion. Thank you for letting us participate in the care of this patient. For questions regarding this report, please contact the number below. Electronically signed by: CORNELIUS BOURNE DO, [facility] ([phone]), at 04/26/2020 2:41 PM MELD-Na score: 31 at 05/01/2020 5:11 AM MELD score: 30 at 05/01/2020 5:11 AM Calculated from: Serum Creatinine: 0.66 mg/dL (Rounded to 1 mg/dL) at 04/30/2020 10:24 AM Serum Sodium: 133 mmol/L at 05/01/2020 5:11 AM Total Bilirubin: 21.2 mg/dL at 05/01/2020 5:11 AM INR(ratio): 2.9 at 05/01/2020 5:11 AM Age: 39 years 4 months ASSESSMENT/PLAN: Violet Cowan is a 39 y.o. female w/ PMH notable for alcoholic hepatitis c/b evolving cirrhosisand multiple recent admission as summarized in admission H&P. Given this leukocytosis was expected at prior discharge, and that infectious workup within the past week was thoroughly unremarkable will hold antibiotics. 04/26 BCx NGTD. S/p para 04/28 courtesy of IR. 3.1L removed, sxs improved. Continuing to trend labs. No mental statuschanges. GI recommended steroids yesterday. Pt tolerating well. Cr stable w/ 25mg spironolactone. However, still very edematous. Plan to add 20mg lasix and observe Cr tomorrow. Discussed prognosis with patient and patient's . Discussed plans around discharge/symptom management/goals of care. Labs continuing to worsen overall, though somewhat stable today. Pt would liketo spend another night in the hospital to optimize her symptom control and discharge plan, and then would like to go home tomorrow. ?? #??Decompensated Alcoholic Cirrhosis c/b portal hypertension and coagulopathy # fulminant hepatic failure # Alcohol Use Disorder in remission - GI consult - trend daily MELD-Na, 26 on admission, 31 today -??continue??thiamine, folate??and multi-Vit??supplement -??Recent Cirrhosis workup panel was unremarkable, see previous documentation - S/p IV VitK 10mg x 3 doses??04/19-04/21 - MELD labs qd - spironolactone 25mg qd - lasix 20mg qd - prednisolone 40mg qday; Lille score on day 7 - referral to [facility] for potential transplant #Fever #Leukocytosis - f/u blood cx, NGTD - HOLD antibiotics given low concern for infection - No fever since 04/19. Last dose of Zosyn 04/19 @ 0400 - continue to monitor for signs/symptoms of infection?? - s/p para 04/29, Abs PMN's: 7 ?? # Recent??Prepyloric Bleeding Ulcer # Subacute blood loss Anemia - S/p clips x4, GDA embolization earlier this month -??s/p 5 total units PRBC on recent hospitaizations -??continue??PO??PPI bid - Hgb stable -??trend??daily CBC - avoid NSAIDs ?? # Routine: - Prophylaxis: ?GI: PPI??BID ?DVT: Hold AC, SCDs and ambulate?? - Nutrition:??low salt high protein diet - Code Status:??Attempt Cardiopulmonary Resuscitation - Inpatient Isha Franklin MD, PGY-1 Medicine Blue Team (pgr. [phone]) Associated attestation - Karina Lantigua MD - 05/01/2020 9:57 PM EDT Attending Attestation Please see Dr. Franklin''s note for details of the patient history of presentation and data. I have discussed, reviewed and agree with the documented History, Physical findings, Assessment and Plan of care. 39 y/o with recent admissions initially for UGIB from pylori ulcer requiring clipping and GDA embolization, admitted with worsening liver function in setting of alcoholic hepatitis. Leukcoytosis likelyfrom inflammation with negative infectious work-up including, CXR, para neg SBP, UA. For Alc hep, MDF 117 today. Started prednisolone on 04/30 and monitoring response. Appreciate GI input who was in touch with [facility] with current plan for outpatient evaluation but monitoring LFTs and if response to steroids. Also adjusting diuretics and monitoring renal function. Adding lasix today. With respect to EtOH and possible exception pathway criteria for transplant evaluation - reports started drinking 3 years ago. This is first EtOH related issue (no h/o DUI, has maintained job without issues, has not been told prior to stop drinking for health reason). She is very motivated with her 4 year old son and supportive . MELD-Na score: 31 at 05/01/2020 5:11 AM MELD score: 30 at 05/01/2020 5:11 AM Calculated from: Serum Creatinine: 0.69 mg/dL (Rounded to 1 mg/dL) at 05/01/2020 5:11 AM Serum Sodium: 133 mmol/L at 05/01/2020 5:11 AM Total Bilirubin: 21.2 mg/dL at 05/01/2020 5:11 AM INR(ratio): 2.9 at 05/01/2020 5:11 AM Age: 39 years 4 months I have examined the patient myself and personally reviewed all studies. In addition, I certify that I am a D-H credentialed attending provider with admitting privileges and that the patient meets or has met medical necessity to require an inpatient IPI level of care meeting a minimum of two midnights or is on the CMS inpatient only procedure list (status C) due to: volume status and alcoholic hepatitis Kei Nunes MD - 05/01/2020 5:42 AM EDT Images from the original note were not included. DIVISION OF GASTROENTEROLOGY & HEPATOLOGY CONSULT PROGRESS NOTE NAME: Violet Cowan : 1980 INTERVAL: - Discussed case with Trice, provisionally planning for outpatient transplant eval - Started on prednisolone yesterday - Feeling well this morning, feeling less bleak. Abdomen soft. Doesn't feel as though she's reacculumating fluid quickly. Persistent leg edema a concern. Past Medical, Surgical, Family History unchanged from initial consult note MEDICATIONS Scheduled: ??? prednisoLONE 40 mg Oral Daily ??? spironolactone 25 mg Oral Daily ??? acamprosate DR 666 mg Oral TID ??? folic acid 1 mg Oral Daily ??? multivitamin with minerals 1 tablet Oral Daily ??? pantoprazole EC 40 mg Oral BID ??? thiamine 100 mg Oral Daily ??? sodium chloride 0.9 % (flush) 5 mL Intravenous BID PRN: ondansetron, ondansetron ODT, dextromethorphan-guaiFENesin, acetaminophen, sodium chloride 0.9 % (flush), lidocaine No Known Allergies Vitals: T Temp: [36.8 ??C (98.2 ??F)-37.1 ??C (98.8 ??F)] HR Heart Rate: -- BP BP: (95-101)/(57-59) RR Resp: [18-22] SpO2 SpO2: [89 %-93 %] IO 04/30 0701 - 05/01 0700 In: 245 [P.O.:240; I.V.:5] Out: 900 [Urine:900] Wt Last 80.7 kg (177 lb 14.4 oz) Admit 85.59 kg Physical Exam: GEN: Awake, alert, oriented, no acute distress HEENT: scleral icterus RESP: CTAB CARDIAC: RRR, normal S1/S2, no appreciable murmurs ABDOMEN: Soft, non-tender, minimally distended, normoactive bowel sounds EXTREM: Warm, 2+ b/l edema, non-tender to palpation NEURO: Grossly intact, moves all extremities, no asterixis SKIN: Jaundice Labs: CBC: Recent Labs 04/30/20102304/29/20 0358 04/28/20 0504/27/20 0435 04/26/20 0635 WBC 30.7* 29.2* 24.1* 22.8* 22.4* HGB 10.2* 9.8* 9.8* 9.6* 10.0* HCT 30.5* 28.3* 29.9* 28.8* 29.2* MCV 86.9 85.8 87.9 87.5 86.9 RDWCV 18.5* 18.6* 18.6* 18.6* 18.7* COAG: Recent Labs 04/30/20102304/29/2035704/28/2052004/27/20 0435 04/26/20 0635 PTT 45* 47* 46* 45* 46* INR 2.8 2.7 2.6 2.5 2.5 CHEM: Recent Labs 04/30/20102304/29/2035704/28/2052004/27/20 0435 04/26/20 0635 GLUCOSE 137 -- -- -- 104 NA 134* 135 134* 133* 132* K 3.4* 3.5 3.3* 3.5 3.6 CL 99 101 100 100 100 CO2 23 24 23 24 24 BUN 5* 7* 8 7* 7* CREATININE 0.66* 0.70 1.02 0.70 0.72 ALBUMIN 2.6* 2.7* 2.2* 2.2* 2.3* MAGNESIUM -- -- -- -- 0.85 CALCIUM 8.4* 8.3* 8.1* 8.0* 8.1* HEPATIC: Recent Labs 04/30/20 1024 04/29/20 03504/28/20 0504/27/20 0435 04/26/20 0635 ALKPHOS 119* 110* 118* 122* 117* ALT 25 26 28 29 30 AST 205* 171* 175* 159* 149* BILITOT 21.5* 19.7* 18.1* 16.8* 17.4* BILIDIR -- -- -- -- >10.0* INFLAMM: No results for input(s): CRP in the last 168 hours. Invalid input(s): ESR MELD-Na score: 31 at 04/30/2020 10:24 AM MELD score: 30 at 04/30/2020 10:24 AM Calculated from: Serum Creatinine: 0.66 mg/dL (Rounded to 1 mg/dL) at 04/30/2020 10:24 AM Serum Sodium: 134 mmol/L at 04/30/2020 10:24 AM Total Bilirubin: 21.5 mg/dL at 04/30/2020 10:24 AM INR(ratio): 2.8 at 04/30/2020 10:24 AM Age: 39 years 3 months Imaging: Images and reports personally reviewed in [facility] IR Paracentesis Final Result XR Chest PA & Lateral (Generic) Final Result Linear atelectasis in the right midlung. Trace left pleural effusion. Thank you for letting us participate in the care of this patient. For questions regarding this report, please contact the number below. Film Library- Storage Only DX Chest Final Result Endoscopy: Images and reports personally reviewed in [facility] EGD (04/11/20): Findings: ?Esophagogastric landmarks were identified: [...] 6-8 weeks to ?confirm healing of ulcer ASSESSMENT & PLAN: 39/F hx likely EtOH cirrhosis (newly dx, never bx-confirmed) adm 04/26 with persistent leukocytosis, worsening peripheral edema and ascites c/f worsening decompensated cirrhosis v Alc Hep. Recent admission 04/11-04/17 in hemorrhagic shock / spurting gastric ulcer s/p clipping followed by GDA embolization (04/11). Has remained sober since that time and motivated to remain so. Discussed transfer with [facility] who recommended outpatient transplant eval. Started on prednisolone 04/30 for worsening hyperbilirubinemia. MELD-Na now 31. Recommendations: - Daily CBC, CMP, INR - Daily Cr, replete lytes PRN, strict I/Os - PO vitamin K 10mg daily for 3 days for any nutritional component to coagulopathy - No NSAIDs - 2g Na diet, nutrition consult - Up and OOB as tolerated, physical therapy - PO PPI BID - Recommend more aggressive diuresis given edema, ascites, stable Cr. Likely achieving little with low-dose spironolactone alone. Consider resuming PO Lasix at 20 or 40mg daily. Adjust spironolactone accordingly to 2:5 ratio. Closely monitor K levels if resuming Lasix. - Continue prednisolone 40mg daily. Calculate Lille score on day 7. If >0.45, recommend discontinuing given lack of response. If <0.45, would complete a 4 week course followed by taper (decrease daily dose by 10mg each week) then stop - Thiamine, folate - Will request outpatient F/U with Hepatology - Needs repeat EGD in 6-8 weeks to assess for gastric ulcer healing Patient seen with Dr. Whatley. Kei Nunes MD PGY-4, Gastroenterology Associated attestation - Rajendra Whatley MD - 05/01/2020 11:15 AM EDT I have independently seen and examined the patient, and have reviewed the resident???s above note, and agree with the documented history, physical findings, and study results; my evaluation of the patient is below: Met with Ms Cowan this morning in follow up. Will now monitor her response to steroids, and depending upon her clinical course, either more urgently need to consider transplant or will have follow up with us an [facility] regarding transplant candidacy MD Noemi Nino, Isha Carl MD - 04/30/2020 8:33 AM EDT Images from the original note were not included. Inpatient Medicine Progress Note ID: Violet Cowan is a 39 y.o. female w/ PMH of alcohol use disorder,??likely alcoholic??cirrhosis, medically managed microprolactinoma??and multiple recent admission. Originally she required admission for hemorrhagic shock secondary to a bleeding pre-pyloric ulcer s/p EGD clipping and IR emboliza tion??who represented??in transfer last week with fever, leukocytosis and jaundice now being transferred after f/u lab work showed worsening leukocytosis. 24 hr events: - No acute events overnight - no complaints today Meds: Continuous Infusions: Scheduled Meds: ??? spironolactone 25 mg Oral Daily ??? acamprosate DR 666 mg Oral TID ??? folic acid 1 mg Oral Daily ??? multivitamin with minerals 1 tablet Oral Daily ??? pantoprazole EC 40 mg Oral BID ??? thiamine 100 mg Oral Daily ??? sodium chloride 0.9 % (flush) 5 mL Intravenous BID PRN Meds:.ondansetron, ondansetron ODT, dextromethorphan-guaiFENesin, acetaminophen, sodium chloride0.9 % (flush), lidocaine Vital Signs: Last value Range last 24 hrs Temperature Temp: 36.8 ??C (98.2 ??F) Temp: [36.7 ??C (98.1 ??F)-37.5 ??C (99.5 ??F)] Heart Rate Heart Rate: (!) 107 Heart Rate: [107] Blood Pressure BP: 101/59 BP: (94-105)/(47-62) Respiratory Rate Resp: 18 Resp: [16-19] SpO2 SpO2: 92 % SpO2: [90 %-93 %] Patient Vitals for the past 168 hrs: Weight 04/30/20 0619 80.9 kg (178 lb 4.8 oz) 04/29/20 0143 84.6 kg (186 lb 8 oz) 04/28/20 0701 84.6 kg (186 lb 8 oz) 04/27/20 0722 84.6 kg (186 lb 9.6 oz) 04/26/20 0447 85.6 kg (188 lb 11.2 oz) I/O: Intake/Output Summary (Last 24 hours) at 04/30/2020 0833 Last data filed at 04/30/2020 0811 Gross per 24 hour Intake 240 ml Output 400 ml Net -160 ml Physical Exam: Gen: in bed in NAD; alert, oriented, interactive HEENT: scleral icterus, MMM CV: RRR, normal S1/S2, no m/r/g Resp: CTAB, no distress Abd: +BS, soft, NTD, somewhat distended but not rigid Ext: WWP, no cyanosis, no clubbing, 2+ DP pulses, 2+ pitting edema bilaterally Neuro: no focal deficits noted, CN II-XII grossly intact, moves all extremities spontaneously Skin: jaundiced, no rashes, lesions, or ulcerations noted Labs Recent Labs 04/29/2035704/28/20 0521 04/27/20 0435 WBC 29.2* 24.1* 22.8* HGB 9.8* 9.8* 9.6* HCT 28.3* 29.9* 28.8* PLATELET 465* 442* 453* Recent Labs 04/29/2035704/28/20 0521 04/27/20 0435 NA 135 134* 133* K 3.5 3.3* 3.5 CL 101 100 100 CO2 24 23 24 BUN 7* 8 7* CREATININE 0.70 1.02 0.70 Recent Labs 04/29/2035704/28/20 0521 04/27/20 0435 04/26/20 0635 AST 171* 175* 159* 149* ALT 30 ALKPHOS 110* 118* 122* 117* BILITOT 19.7* 18.1* 16.8* 17.4* BILIDIR -- -- -- >10.0* Recent Labs 04/29/20 0358 04/28/20 0521 04/27/20 0435 04/26/20 0635 CALCIUM 8.3* 8.1* 8.0* 8.1* MAGNESIUM -- -- -- 0.85 PHOS -- -- -- 2.7 Recent Labs 04/29/20 0358 04/28/20 0521 04/27/20 0435 INR 2.7 2.6 2.5 PT 31.4* 30.2* 28.8* PTT 47* 46* 45* No results for input(s): CK, TROPONINT in the last 168 hours. No results for input(s): POCGLU in the last 168 hours. No results for input(s): PROBNP in the last 168 hours. Micro Blood Cx 04/26: NGTD x2 Paracentesis Cx 04/28: NGTD Imaging/Studies: Results for orders placed or performed during the hospital encounter of 04/26/20 XR Chest PA & Lateral (Generic) (Exam End: 04/26/2020 2:38 PM) Impression Linear atelectasis in the right midlung. Trace left pleural effusion. Thank you for letting us participate in the care of this patient. For questions regarding this report, please contact the number below. -Na score: 30 at 04/29/2020 3:58 AM MELD score: 29 at 04/29/2020 3:58 AM Calculated from: Serum Creatinine: 0.70 mg/dL (Rounded to 1 mg/dL) at 04/29/2020 3:58 AM Serum Sodium: 135 mmol/L at 04/29/2020 3:58 AM Total Bilirubin: 19.7 mg/dL at 04/29/2020 3:58 AM INR(ratio): 2.7 at 04/29/2020 3:58 AM Age: 39 years 3 months ASSESSMENT/PLAN: Violet Cowan is a 39 y.o. female w/ PMH notable for alcoholic hepatitis c/b evolving cirrhosisand multiple recent admission as summarized in admission H&P. Given this leukocytosis was expected at prior discharge, and that infectious workup within the past week was thoroughly unremarkable will hold antibiotics. 04/26 BCx NGTD. S/p para 04/28 courtesy of IR. 3.1L removed, sxs improved. Continuing to trend labs, pending this morning. No mental status changes. Discussed prognosis with patient and patient's . Discussed plans around discharge/symptom management/goals of care. Pt would like to spend another day or two in the hospital in order to get better control of her symptoms and monitor for improvement, and then would like to go home. ?? #??Decompensated Alcoholic Cirrhosis c/b portal hypertension and coagulopathy # fulminant hepatic failure # Alcohol Use Disorder in remission - Discussed pt w/ GI, no further recs at this time - trend daily MELD-Na, 26 on admission, 30 on 04/29, labs pending today -??continue??thiamine, folate??and multi-Vit??supplement -??Recent Cirrhosis workup panel was unremarkable, see previous documentation - S/p IV VitK 10mg x 3 doses??04/19-04/21 - MELD labs qd - spironolactone 25mg qd #Fever #Leukocytosis - f/u blood cx, NGTD - HOLD antibiotics given low concern for infection - No fever since 04/19. Last dose of Zosyn 04/19 @ 0400 - continue to monitor for signs/symptoms of infection?? - s/p para 04/29, Abs PMN's: 7 ?? # Recent??Prepyloric Bleeding Ulcer # Subacute blood loss Anemia - S/p clips x4, GDA embolization earlier this month -??s/p 5 total units PRBC on recent hospitaizations -??continue??PO??PPI bid - Hgb stable -??trend??daily CBC - avoid NSAIDs ?? # Routine: - Prophylaxis: ?GI: PPI??BID ?DVT: Hold AC, SCDs and ambulate?? - Nutrition:??low salt high protein diet - Code Status:??Attempt Cardiopulmonary Resuscitation - Inpatient Isha Franklin MD, PGY-1 Medicine Blue Team (pgr. [id number]) Associated attestation - Karina Lantigua MD - 04/30/2020 7:48 PM EDT Attending Attestation Please see Dr. Franklin''s note for details of the patient history of presentation and data. I have discussed, reviewed and agree with the documented History, Physical findings, Assessment and Plan of care. 39 y/o with recent admissions initially for UGIB from pylori ulcer requiring clipping and GDA embolization, also with acute alcoholic hepatitis, admitted with worsening LFTs/liver function and leukocytosis at this point felt to be related to inflammation/leukemoid. Remains afebrile with negative infectious work-up (no infiltrate on CXR, para today negative for SBP, RUQ pain improved after para, initial UA not reflexed). Had 3L para and remains with pitting LE edema. Cr to 1 earlier in course and decreased diuretic to 25mg aldactone - goal to increase as renal function tolerates. Regarding EtOH, reports started drinking 3 years ago. This is first EtOH related issue. No h/o DUI, has maintained job without issues, has not been told prior to stop drinking for health reason. She isvery motivated with her 4 year old and supportive . Appreciate GI input and communication with [facility] - at this juncture planning outpt. Gi recommending prednisolone and 7 day lille even with recent GIB (did have GDA embolization). Discussed plan with Violet and her by phone. MELD-Na score: 31 at 04/30/2020 10:24 AM MELD score: 30 at 04/30/2020 10:24 AM Calculated from: Serum Creatinine: 0.66 mg/dL (Rounded to 1 mg/dL) at 04/30/2020 10:24 AM Serum Sodium: 134 mmol/L at 04/30/2020 10:24 AM Total Bilirubin: 21.5 mg/dL at 04/30/2020 10:24 AM INR(ratio): 2.8 at 04/30/2020 10:24 AM Age: 39 years 3 months MDF: 115 I have examined the patient myself and personally reviewed all studies. In addition, I certify that I am a [facility] credentialed attending provider with admitting privileges and that the patient meets or has met medical necessity to require an inpatient IPI level of care meeting a minimum of two midnights or is on the CMS inpatient only procedure list (status C) due to: volume status and alcoholic hepatitis Michelle Gerber MD - 04/30/2020 6:10 AM EDT Images from the original note were not included. DIVISION OF GASTROENTEROLOGY & HEPATOLOGY CONSULT PROGRESS NOTE REQUESTING PROVIDER: Karina Lantigua MD NAME: Violet Cowan : 1980 INTERVAL: - Tm 99.5,Soft BP 80/40s-->100/60s - Mentating well, no evidence of encephalopathy - Hb stable 9.8 - One episode emesis NBNB overnight; feels better now after Zofran. No abdominal pain this morning. -Discussed history of alcohol use today and new diagnosis of cirrhosis. Patient has endorsed a history of frequent binging periods of alcohol followed by decreased use. She never thought it would lead to such significant problems; notes she grew up with her father drinking all day and she normalized this behavior, and also did not see any complications arise from his behavior. She feels resolute withthis diagnosis that she will stop drinking completely. Asked appropriate questions about her liver disease, the severity of it, and the likelihood of transplant candidacy. 14-system ROS reviewed and negative except as above Past medical history: cirrhosis Past Surgical History: Procedure Laterality Date ??? IR ARTERIAL INTERVENTION 04/12/2020 IR Arterial Intervention 04/12/2020 Carlitos Steve, DO [facility] RAD ??? IR PARACENTESIS 04/21/2020 IR Paracentesis 04/21/2020 Darren Roy MD [facility] INTERVENTION[facility] RAD ??? IR PARACENTESIS 04/28/2020 IR Paracentesis 04/28/2020 Kye Nazario MD [facility] INTERVENTION[facility] RAD Social History: active EtOH at home, no tobacco or illicit drugs Family History: no known liver disease in mother/father or other family members MEDICATIONS Home Meds: Medications Prior to Admission Medication Sig Dispense Refill Last Dose ??? furosemide (Lasix) 20 mg Tablet Take 1 tablet by mouth daily. 30 tablet 0 04/25/2020 at Unknown time ??? folic acid (Folvite) 1 mg Tablet Take 1 tablet by mouth daily. 90 tablet 3 04/25/2020 at Unknown time ??? multivitamin with minerals (THERA-M) 9 mg iron-400 mcg Tablet Take 1 tablet by mouth daily. 30 tablet 0 04/25/2020 at Unknown time ??? pantoprazole EC (Protonix) 40 mg Tablet, Delayed Release (E.C.) Take 1 tablet by mouth 2 times daily. 90 tablet 3 04/25/2020 at Unknown time ??? thiamine (Vitamin B1) Take 1 tablet by mouth daily. 30 tablet 0 04/25/2020 at Unknown time ??? acamprosate DR (Campral) 333 mg Tablet, Delayed Release (E.C.) Take 2 tablets by mouth 3 times daily. 180 tablet 0 04/25/2020 at Unknown time Current Meds: Scheduled: ??? spironolactone 25 mg Oral Daily ??? acamprosate DR 666 mg Oral TID ??? folic acid 1 mg Oral Daily ??? multivitamin with minerals 1 tablet Oral Daily ??? pantoprazole EC 40 mg Oral BID ??? thiamine 100 mg Oral Daily ??? sodium chloride 0.9 % (flush) 5 mL Intravenous BID Drips: No Known Allergies OBJECTIVE Vitals: T Temp: [36.7 ??C (98.1 ??F)-37.5 ??C (99.5 ??F)] HR Heart Rate: [107] BP BP: (94-105)/(47-62) RR Resp: [16-19] SpO2 SpO2: [90 %-93 %] 04/29 0701 - 04/30 0700 In: - Out: 400 [Urine:400] Wt Last 84.6 kg (186 lb 8 oz) Admit 85.59 kg Physical Exam: GEN: Awake, alert, oriented HEENT: scleral icterus RESP: CTAB CARDIAC: regular rate, rhythm, normal S1/S2, no appreciable murmurs ABDOMEN: Soft, distended, non-tender, neg Link's, normoactive bowel sounds EXTREM: Warm, 1+ edema NEURO: Awake, alert, moving all extremities spontaneously, no asterixis SKIN: Faint jaundice Labs: CBC: Recent Labs 04/29/20 0358 04/28/20 0521 04/27/2043404/26/20 0635 WBC 29.2* 24.1* 22.8* 22.4* HGB 9.8* 9.8* 9.6* 10.0* HCT 28.3* 29.9* 28.8* 29.2* MCV 85.8 87.9 87.5 86.9 RDWCV 18.6* 18.6* 18.6* 18.7* COAG: Recent Labs 04/29/2035704/28/2052004/27/2043404/26/20 0635 PTT 47* 46* 45* 46* INR 2.7 2.6 2.5 2.5 CHEM: Recent Labs 04/29/2035704/28/2052004/27/2043404/26/20 0635 GLUCOSE -- -- -- 104 NA 135 134* 133* 132* K 3.5 3.3* 3.5 3.6 CL 101 100 100 100 CO2 24 23 24 24 BUN 7* 8 7* 7* CREATININE 0.70 1.02 0.70 0.72 ALBUMIN 2.7* 2.2* 2.2* 2.3* MAGNESIUM -- -- -- 0.85 CALCIUM 8.3* 8.1* 8.0* 8.1* HEPATIC: Recent Labs 04/29/2035704/28/2052004/27/2043404/26/20 0635 ALKPHOS 110* 118* 122* 117* ALT 26 28 29 30 AST 171* 175* 159* 149* BILITOT 19.7* 18.1* 16.8* 17.4* BILIDIR -- -- -- >10.0* IMAGING: Reports and images personally reviewed in [facility] MRI Abdomen wwo Contrast (Generic) Final Result 1. Significantly limited examination, as detailed above. 2. Hepatomegaly = 21.1 cm. 3. Multifocal hepatic steatosis, most pronounced within the left hepatic lobe. Within the limits of the examination, no focal suspicious hepatic lesions. If screening for cirrhotic changes / hepatocellular carcinoma is required, future evaluations should be with CT of the Abdomen (Hepatic Protocol - without and with intravenous contrast) given significant respiratory motion artifact and susceptibility artifact from endovascular occluding devices. 4. Respiratory motion artifact is most pronounced on postcontrast images. The hepatic veins and portal veins are patent; however, evaluation for partial thrombosis is nondiagnostic. 5. Interval increase but still small ascites, predominantly within the pelvis. Increase in edema throughout the mesentery. 6. New small bilateral pleural fluid with associated compressive atelectasis. 7. Interval development of diffuse anasarca, which may be related to hypervolemia, hypoproteinemia, or combination thereof. LI-RADS Categories: LR-TIV = Tumor in vein LR-5 = Definitely hepatocellular carcinoma (concordant with OPTN 5) LR-4 = Probably hepatocellular carcinoma LR-3 = Intermediate probability for hepatocellular carcinoma LR-2 = Probably benign LR-1 = Definitely benign LR-TR Viable = Treated, probably or definitely viable LR-TR Equivocal = Treated, equivocal viable LR-TR Nonviable = Treated, probably or definitely not viable LR-TR Nonevaluable = Treated, Response not evaluable (due to image omission or degradation) LR-M = Probably or definitely malignant but not HCC specific LR-NC = Not categorizable (due to image omission or degradation) NOTE: LI-RADS categories should be interpreted in the context of other available data, such as biomarkers and the patient's prior probability of developing or having hepatocellular carcinoma. The LI-RADS / OPTN classification of liver lesions has been adopted to standardize CT and MRI scan reporting in patients at risk for hepatocellular carcinoma. The imaging criteria for definite hepatocellular carcinoma are concordant for the LI-RADS and OPTN systems. LI-RADS criteria and documentation are available online at https://www.acr.org/Clinical-Resources/Uccjcbxvw-jwm-Cyxj-Systems/LI-RADS. This report utilizes LI-RADS version 2018. Thank you for letting us participate in the care of this patient. For questions regarding this report, please contact the number below. Chest One View Final Result FINDINGS/IMPRESSION: RIGHT central catheter tip projects over the mid SVC. Pulmonary edema. Possible small pleural effusions and/or bibasilar atelectasis. No pneumothorax seen. Prominent cardiomediastinal silhouette, nonspecific given technique/positioning. Thank you for letting us participate in the care of this patient. For questions regarding this report, please contact the number below. Abdomen Vascular Limited Hepatology Protocol Final Result 1. No flow detected in the proximal main portal vein. This finding may either be secondary to slow flow below the sensitivity of ultrasound or due to thrombosis. Of note, the portal venous system was found to be patent on the CT scan performed 04/09/2020. Multiphasic MRI liver lesion protocol had been recommended to evaluate for focal liver lesions, and such a study would provide another opportunity to evaluate the patency of the portal venous system. 2. Hepatofugal flow within the distal and mid main portal vein and the right and left portal veins, compatible with portal venous hypertension. 3. Thickening of the gallbladder wall to 6 mm, in the setting of ascites and in the absence of other signs of acute cholecystitis, more likely to be related to the ascites. The above findings were discussed with Dr. Jossy Alfaro by Dr. Babak Hurst on 04/13/2020 at 12:30 pm. Lulú Sahu, Interim Pulp Grinder Electronically Signed Final Report 04/13/2020 12:40 pm Request For 2nd Read CT Abdomen & Pelvis Final Result Abnormal 1. Hepatomegaly with large geographic areas of heterogeneously low-attenuation. Differential considerations include geographic areas of hepatic steatosis, hepatitis, or an underlying infiltrative neoplastic process. Hepatic ischemia/infarction could also have this appearance, but the portal vein, proper hepatic and variant left hepatic artery are patent. Given the heterogeneity of the attenuation, evaluation for discrete hepatic lesions, including hepatocellular carcinoma is limited. Further evaluation with multiphasic MR liver mass protocol is recommended. 2. Scattered gastric varices and prominent mesenteric vasculature raises suspicions for portal hypertension. 3. Nonspecific abnormal thickening, without inflammatory stranding. Findings could suggest adjacent hepatitis, given the abnormal attenuation of the liver, discussed above. 4. Query trace fluid around the pancreatic head. Recommend correlation with any clinical or laboratory signs of acute pancreatitis. 5. Wall thickening of the gastric antrum is nonspecific, but gastritis could have this appearance. Recommend correlation with EGD. 6. Diffuse colonic submucosal fat. These findings can be seen in chronic inflammatory condition such as ulcerative colitis or Crohn's disease, but it can also reflect patient body habitus there is no pericolonic inflammatory stranding or pericolonic fluid. 7. Unexpected finding: Asymmetric nodule left breast tissue is partially imaged. Recommend correlation with diagnostic breast imaging. Thank you for letting us participate in the care of this patient. For questions regarding this report, please contact the number below. Arterial Intervention Final Result XR Chest One View Final Result Endotracheal tube tip at the clavicle heads. Enteric tube in the stomach. Thank you for letting us participate in the care of this patient. For questions regarding this report, please contact the number below. Film Library- Storage Only CT Abdomen & Pelvis Final Result ASSESSMENT & PLAN: 39/F hx likely cirrhosis (thought to be 2/2 EtOH, still actively drinking) admitted 04/11 w/ hematemesis in hemorrhagic shock. Initial concern for portal hypertensive bleed but found to have spurting prepyloric ulcer s/p clip x4 then taken for empiric GDA embolization by IR with resolution of bleeding.Has developed worsening conjugated hyperbilirubinemia with normal AP, mild elevation in AST but normal ALT. Mild Alc Hep possible v decompensated cirrhosis. Abdominal US showed mildly thickened GB wall(6mm), and slow flows through PV c/f acute partial thrombosis but on review of f/up MR and repeat US, does not appear to have thrombus. If she were to demonstrate new thrombus, would not be a great candidate for AC given admission for hemorrhagic shock. GI now re-consulted to evaluate for candidacy of liver transplant. Patient is active drinker but perour discussion and charting, patient is only presenting for the first time now with newly diagnosed liver disease; she appears to not have any events in her past that should have prompted her to stop drinking then, and continues to have strong social supports (family), and has expressed willingness toquit drinking, with her main incentive being taking care of her child. She may qualify for exceptionpathway criteria for a liver transplant in an active drinker and can initiate that process to screenfor such on this admission. We will reach out to [facility] to discuss this case and review possible transfer vs. Evaluation as an outpatient for liver transplant. She does appear clinically stable at this time without overt encephalopathy, kidney damage and slow increase in her TB/DB, LFTs. Active ascitesnegative for SBP, no e/o liver lesion seen on MRI previously characterized on US. MELD-Na score: 30 at 04/29/2020 3:58 AM MELD score: 29 at 04/29/2020 3:58 AM Calculated from: Serum Creatinine: 0.70 mg/dL (Rounded to 1 mg/dL) at 04/29/2020 3:58 AM Serum Sodium: 135 mmol/L at 04/29/2020 3:58 AM Total Bilirubin: 19.7 mg/dL at 04/29/2020 3:58 AM INR(ratio): 2.7 at 04/29/2020 3:58 AM Age: 39 years 3 months Recommendations: - Recommend reaching out to [facility] to discuss this case and option of adding her to liver transplant list. We will also reach out to their transplant silk spotter to discuss this case -Daily CBC, CMP, INR - ASMA, AMA, LKM, OXANA neg - Repeat iron studies with ferritin - No NSAIDs - Completed 72h IV PPI BID; continue oral PPI BID given high-risk lesion on endoscopy - Completed 7d abx for SBP ppx after GIB; recent dx para 04/28 neg for SBP - Thiamine, folate - F/U with Hepatology clinic scheduled This case was discussed with Dr. Whatley. Michelle Gerber M.D. Fellow in Gastroenterology and Hepatology Pager #[phone] 04/30/2020 Associated attestation - Rajendra Whatley MD - 04/30/2020 12:33 PM EDT I have independently seen and examined the patient, and have reviewed the resident???s above note, and agree with the documented history, physical findings, and study results; my evaluation of the patient is below: I met with Ms Cowan this morning and reviewed her history. I have contacted [facility] reg ruth transplant evaluation, for which I think she would be a candidate - she started drinking moreregularly after her son was born and after her father's , and over several years was often drinking more than she realized could be problematic, and is now learning for the first time the impact her drinking had on her liver. She is committed to abstinence, she expressed strong desire to do whatever it takes to live and care for her 4 year old son. At this point I would recommend initiation of prednisolone for alcoholic hepatitis with 7 day priscilla.I have also discussed with Tr[facility], and they will arrange an appointment for her transplant evaluationin a couple of weeks unless her clinical condition changes requiring more urgent transplant. MD Noemi Nino, Isha Carl MD - 04/29/2020 6:55 AM EDT Images from the original note were not included. Inpatient Medicine Progress Note ID: Violet Cowan is a 39 y.o. female w/ PMH of alcohol use disorder,??likely alcoholic??cirrhosis, medically managed microprolactinoma??and multiple recent admission. Originally she required admission for hemorrhagic shock secondary to a bleeding pre-pyloric ulcer s/p EGD clipping and IR emboliza tion??who represented??in transfer last week with fever, leukocytosis and jaundice now being transferred after f/u lab work showed worsening leukocytosis. 24 hr events: - No acute events overnight - abd soreness after para - vomited x1 last night, nausea improved w/ Zofran Meds: Continuous Infusions: Scheduled Meds: ??? acamprosate DR 666 mg Oral TID ??? folic acid 1 mg Oral Daily ??? multivitamin with minerals 1 tablet Oral Daily ??? pantoprazole EC 40 mg Oral BID ??? thiamine 100 mg Oral Daily ??? sodium chloride 0.9 % (flush) 5 mL Intravenous BID PRN Meds:.ondansetron, ondansetron ODT, dextromethorphan-guaiFENesin, acetaminophen, sodium chloride0.9 % (flush), lidocaine Vital Signs: Last value Range last 24 hrs Temperature Temp: 36.3 ??C (97.3 ??F) Temp: [36.3 ??C (97.3 ??F)-37 ??C (98.6 ??F)] Heart Rate Heart Rate: (!) 101 Heart Rate: [95-101] Blood Pressure BP: (!) 83/46(MD Nelson aware) BP: (83-101)/(46-63) Respiratory Rate Resp: 17 Resp: [16-18] SpO2 SpO2: 94 % SpO2: [88 %-97 %] Patient Vitals for the past 168 hrs: Weight 04/29/20 0143 84.6 kg (186 lb 8 oz) 04/28/20 0701 84.6 kg (186 lb 8 oz) 04/27/20 0722 84.6 kg (186 lb 9.6 oz) 04/26/20 0447 85.6 kg (188 lb 11.2 oz) I/O: Intake/Output Summary (Last 24 hours) at 04/29/2020 0655 Last data filed at 04/28/2020 1858 Gross per 24 hour Intake 579 ml Output 3200 ml Net -2621 ml Physical Exam: Gen: in bed in NAD; alert, oriented, interactive HEENT: MMM, grossly normal neck ROM CV: RRR, normal S1/S2, no m/r/g Resp: CTAB, no distress Abd: +BS, soft, minimal RUQ tenderness Ext: WWP, no cyanosis, no clubbing, 2+ DP pulses, 2+ pitting edema bilaterally Neuro: no focal deficits noted, CN II-XII grossly intact, moves all extremities spontaneously Skin: jaundiced, no rashes, lesions, or ulcerations noted Labs Recent Labs 04/29/2035704/28/20 0521 04/27/20 0435 WBC 29.2* 24.1* 22.8* HGB 9.8* 9.8* 9.6* HCT 28.3* 29.9* 28.8* PLATELET 465* 442* 453* Recent Labs 04/29/2035704/28/20 0521 04/27/20 0435 NA 135 134* 133* K 3.5 3.3* 3.5 CL 101 100 100 CO2 24 23 24 BUN 7* 8 7* CREATININE 0.70 1.02 0.70 Recent Labs 04/29/2035704/28/20 0521 04/27/20 0435 04/26/20 0635 04/22/20 0700 AST 171* 175* 159* 149* 120* ALT 26 28 29 30 31* ALKPHOS 110* 118* 122* 117* 118* BILITOT 19.7* 18.1* 16.8* 17.4* 14.0* BILIDIR -- -- -- >10.0* >10.0* Recent Labs 04/29/20 0358 04/28/20 0521 04/27/20 0435 04/26/20 0635 04/22/20 0700 CALCIUM 8.3* 8.1* 8.0* 8.1* 8.0* MAGNESIUM -- -- -- 0.85 -- PHOS -- -- -- 2.7 2.5 Recent Labs 04/29/20 0358 04/28/20 0521 04/27/20 0435 INR 2.7 2.6 2.5 PT 31.4* 30.2* 28.8* PTT 47* 46* 45* No results for input(s): CK, TROPONINT in the last 168 hours. No results for input(s): POCGLU in the last 168 hours. No results for input(s): PROBNP in the last 168 hours. Micro Blood Cx 04/26: pending Imaging/Studies: Results for orders placed or performed during the hospital encounter of 04/26/20 XR Chest PA & Lateral (Generic) (Exam End: 04/26/2020 2:38 PM) Impression Linear atelectasis in the right midlung. Trace left pleural effusion. Thank you for letting us participate in the care of this patient. For questions regarding this report, please contact the number below. Electronically signed by: CORNELIUS BOURNE DO, [facility] ([phone]), at 04/26/2020 2:41 PM MELD-Na score: 30 at 04/29/2020 3:58 AM MELD score: 29 at 04/29/2020 3:58 AM Calculated from: Serum Creatinine: 0.70 mg/dL (Rounded to 1 mg/dL) at 04/29/2020 3:58 AM Serum Sodium: 135 mmol/L at 04/29/2020 3:58 AM Total Bilirubin: 19.7 mg/dL at 04/29/2020 3:58 AM INR(ratio): 2.7 at 04/29/2020 3:58 AM Age: 39 years 3 months ASSESSMENT/PLAN: Violet Cowan is a 39 y.o. female w/ PMH notable for alcoholic hepatitis c/b evolving cirrhosisand multiple recent admission as summarized in admission H&P. Given this leukocytosis was expected at prior discharge, and that infectious workup within the past week was thoroughly unremarkable will hold antibiotics. 04/26 BCx NGTD. S/p para yesterday courtesy of IR. 3.1L removed, sxs improved. Cr improved back to 0.7 today. However, T bili continues to rise, 19.7 today. MELD-Na score 30 today. No mental status changes. Discussed prognosis with patient and patient's today. Discussed plans around discharge/symptom management/goals of care. Pt would like to spend another day or two in the hospital in order to get better control of her symptoms and monitor for improvement, and then would like to go home. ?? #??Decompensated Alcoholic Cirrhosis c/b portal hypertension and coagulopathy # fulminant hepatic failure # Alcohol Use Disorder in remission - Discussed pt w/ GI, no further recs at this time - trend daily MELD-Na, 26 on admission, 30 today -??continue??thiamine, folate??and multi-Vit??supplement -??Recent Cirrhosis workup panel was unremarkable, see previous documentation - S/p IV VitK 10mg x 3 doses??04/19-04/21 - MELD labs qd - spironolactone 25mg qd #Fever #Leukocytosis - f/u blood cx, NGTD - HOLD antibiotics given low concern for infection - No fever since 04/19. Last dose of Zosyn 04/19 @ 0400 - continue to monitor for signs/symptoms of infection?? - s/p para 04/29, Abs PMN's: 7 ?? # Recent??Prepyloric Bleeding Ulcer # Subacute blood loss Anemia - S/p clips x4, GDA embolization earlier this month -??s/p 5 total units PRBC on recent hospitaizations -??continue??PO??PPI bid - Hgb stable -??trend??daily CBC - avoid NSAIDs ?? # Routine: - Prophylaxis: ?GI: PPI??BID ?DVT: Hold AC, SCDs and ambulate?? - Nutrition:??low salt high protein diet - Code Status:??Attempt Cardiopulmonary Resuscitation - Inpatient Isha Franklin MD, PGY-1 Medicine Blue Team (pgr. [phone]) Associated attestation - Karina Lantigua MD - 04/29/2020 2:23 PM EDT Attending Attestation Please see Dr. Franklin''s note for details of the patient history of presentation and data. I have discussed, reviewed and agree with the documented History, Physical findings, Assessment and Plan of care. 39 y/o with recent admissions initially for UGIB from pylori ulcer requiring clipping and GDA embolization, also with acute liver injury attributed to alcoholic hepatitis in setting of EtOH use disorder, admitted with worsening LFTs/liver function and ongoing leukocytosis. Remains afebrile with negative infectious work-up (no infiltrate on CXR, para today negative for SBP, RUQ pain improved after para, initial UA not reflexed). At this juncture, leukocytosis seems related to alc hep. No steroids with recent GIB. She has pitting edema to thighs and balancing diuretics with renal function with Cr up yesterday with Judy < 20 - got albumin and improved. Reintroducing low dose aldactone. She is very m otivated to stay sober. Discussed severity of her liver disease. Reach out to GI to see if would meet exception criteria for transplant evaluation for severe acute alc hep. MELD-Na score: 30 at 04/29/2020 3:58 AM MELD score: 29 at 04/29/2020 3:58 AM Calculated from: Serum Creatinine: 0.70 mg/dL (Rounded to 1 mg/dL) at 04/29/2020 3:58 AM Serum Sodium: 135 mmol/L at 04/29/2020 3:58 AM Total Bilirubin: 19.7 mg/dL at 04/29/2020 3:58 AM INR(ratio): 2.7 at 04/29/2020 3:58 AM Age: 39 years 3 months I have examined the patient myself and personally reviewed all studies. In addition, I certify that I am a D-H credentialed attending provider with admitting privileges and that the patient meets or has met medical necessity to require an inpatient IPI level of care meeting a minimum of two midnights or is on the [facility] inpatient only procedure list (status C) due to: volume status and alcoholic hepatitis Rebecca Henderson DT - 04/28/2020 2:45 PM EDT Nutrition Services Note - Low Nutrition Acuity Violet Cowan is a 39 y.o. female Reason for intervention: education Nutrition Plan: Continue current diet. Multivitamin with minerals. Monitor weight. Encourage good oral intake. Support and encouragement provided. Pt declined offer of supplements/ high protein snacks. Provided pt w/ diet order appropriate education for her Na2gm and High protein diet order. Provided pt w/ high protein food list to encourage high protein food sources. PT reported a UBW of 150 lbs. Her current recorded wt is 186 lbs on 04/28/20 d/t fluid. Active Orders Diet Low Sodium diet 2 GM NA; High Protein Frequency: Effective Now Number of Occurrences: Until Specified Admit Weight: 85.59 kg Estimated body mass index is 29.21 kg/m?? as calculated from the following: Height as of this encounter: 170.2 cm (5' 7). Weight as of this encounter: 84.6 kg (186 lb 8 oz). Wt Readings from Last 5 Encounters: 04/28/20 84.6 kg (186 lb 8 oz) 04/14/20 80.8 kg (178 lb 2.1 oz) Weight loss: none Appetite: Good (50%-75%) Food allergies:no known food allergies Chewing/Swallowing difficulty: none Nausea/Vomiting: nausea, intermittent Last Bowel Movement: 04/28/20 Patient education / questions: provided diet order education and patient with good understanding andwritten education and contact information provided Nutrition services to follow weekly through hospital course unless consulted in the interim. JOSE Willingham Pager: [phone] Janeen Clark RN - 04/28/2020 7:32 AM EDT [facility] DATAB[facility] Name: VIOLET COWAN Date of : 1980 AGE: 39 y.o. [address]: [address] [address] (home) Mobile: Telephone Information: Referring Provider: Dontae Aquino REASON FOR VISIT: Order Questions Question Answer Comment What is the purpose of the study? Therapeutic and Diagnostic Reason for exam and clinical history: alcoholic hepatitis w/ volume overload, eval if enough ascitesto tap Is the patient on anticoagulant / anitplatelet therapy ? No Is the patient ? Unknown Does patient require sedation? None Requested Date 04/28/2020 No Known Allergies Pertinent PMH: Patient Active Problem List Diagnosis Code ??? GI bleed K92.2 ??? Jaundice R17 ??? Alcoholic hepatitis with ascites K70.11 ??? Alcoholic hepatitis K70.10 ?? Date/Procedure Meds Given/Comments 04/11/20 angiography??with multiple coils for embolization in GDA. ICU patient ??04/21/20 Diagnostic Paracentesis 40 cc ??Local only 04/28/20 Paracentsis cc 3100 ??Local only ? 0848 to procedure room 5 via stretcher. Onto table supine. All monitors, O2, safety strap in place. Meds per protocol. Laboratory Results: Lab Results Component Value Date INR 2.6 04/28/2020 Lab Results Component Value Date CREATININE 1.02 04/28/2020 Lab Results Component Value Date K 3.3 (L) 04/28/2020 Lab Results Component Value Date PLATELET 442 (H) 04/28/2020 Isha Franklin MD - 04/28/2020 6:36 AM EDT Images from the original note were not included. Inpatient Medicine Progress Note ID: Violet Cowan is a 39 y.o. female w/ PMH of alcohol use disorder,??likely alcoholic??cirrhosis, medically managed microprolactinoma??and multiple recent admission. Originally she required admission for hemorrhagic shock secondary to a bleeding pre-pyloric ulcer s/p EGD clipping and IR emboliza tion??who represented??in transfer last week with fever, leukocytosis and jaundice now being transferred after f/u lab work showed worsening leukocytosis. 24 hr events: - No acute events overnight - persistent RUQ pain - BLE swelling and pain Meds: Continuous Infusions: Scheduled Meds: ??? spironolactone 50 mg Oral Daily ??? acamprosate DR 666 mg Oral TID ??? folic acid 1 mg Oral Daily ??? multivitamin with minerals 1 tablet Oral Daily ??? pantoprazole EC 40 mg Oral BID ??? thiamine 100 mg Oral Daily ??? sodium chloride 0.9 % (flush) 5 mL Intravenous BID ??? furosemide 20 mg Oral Daily PRN Meds:.dextromethorphan-guaiFENesin, acetaminophen, sodium chloride 0.9 % (flush), lidocaine Vital Signs: Last value Range last 24 hrs Temperature Temp: 37 ??C (98.6 ??F) Temp: [36.9 ??C (98.4 ??F)-37.3 ??C (99.1 ??F)] Heart Rate Heart Rate: 100 Heart Rate: -- Blood Pressure BP: 90/55 BP: (83-101)/(46-57) Respiratory Rate Resp: 16 Resp: [16-19] SpO2 SpO2: 93 % SpO2: [85 %-93 %] Patient Vitals for the past 168 hrs: Weight 04/27/20 0722 84.6 kg (186 lb 9.6 oz) 04/26/20 0447 85.6 kg (188 lb 11.2 oz) I/O: Intake/Output Summary (Last 24 hours) at 04/28/2020 0636 Last data filed at 04/27/2020 2130 Gross per 24 hour Intake 636 ml Output 725 ml Net -89 ml Physical Exam: Gen: in bed in NAD; alert, oriented, interactive HEENT: MMM, grossly normal neck ROM CV: RRR, normal S1/S2, no m/r/g Resp: CTAB, no distress Abd: +BS, soft, minimal RUQ tenderness, mildly distended Ext: WWP, no cyanosis, no clubbing, 2+ DP pulses, 2+ pitting edema bilaterally Neuro: no focal deficits noted, CN II-XII grossly intact, moves all extremities spontaneously Skin: jaundiced, no rashes, lesions, or ulcerations noted Labs Recent Labs 04/28/20 0521 09/2743404/26/20 0635 WBC 24.1* 22.8* 22.4* HGB 9.8* 9.6* 10.0* HCT 29.9* 28.8* 29.2* PLATELET 442* 453* 497* Recent Labs 04/28/2052004/27/2043404/26/2035 04/22/20 0700 NA 134* 133* 132* 133* K 3.3* 3.5 3.6 3.7 CL 100 100 100 101 CO2 23 24 24 22 BUN 8 7* 7* 5* CREATININE -- 0.70 0.72 0.44* Recent Labs 04/28/2052004/27/2043404/26/20 0635 04/22/20 0700 AST 175* 159* 149* 120* ALT 28 29 30 31* ALKPHOS 118* 122* 117* 118* BILITOT 18.1* 16.8* 17.4* 14.0* BILIDIR -- -- >10.0* >10.0* Recent Labs 04/28/2052004/27/2043404/26/2035 04/22/20 0700 CALCIUM 8.1* 8.0* 8.1* 8.0* MAGNESIUM -- -- 0.85 -- PHOS -- -- 2.7 2.5 Recent Labs 04/28/2052004/27/2043404/26/20 0635 INR 2.6 2.5 2.5 PT 30.2* 28.8* 28.6* PTT 46* 45* 46* No results for input(s): CK, TROPONINT in the last 168 hours. No results for input(s): POCGLU in the last 168 hours. No results for input(s): PROBNP in the last 168 hours. Micro Blood Cx 04/26: pending Imaging/Studies: Results for orders placed or performed during the hospital encounter of 04/26/20 XR Chest PA & Lateral (Generic) (Exam End: 04/26/2020 2:38 PM) Impression Linear atelectasis in the right midlung. Trace left pleural effusion. Thank you for letting us participate in the care of this patient. For questions regarding this report, please contact the number below. -Na score: 29 at 04/28/2020 5:21 AM MELD score: 28 at 04/28/2020 5:21 AM Calculated from: Serum Creatinine: 1.02 mg/dL at 04/28/2020 5:21 AM Serum Sodium: 134 mmol/L at 04/28/2020 5:21 AM Total Bilirubin: 18.1 mg/dL at 04/28/2020 5:21 AM INR(ratio): 2.6 at 04/28/2020 5:21 AM Age: 39 years 3 months ASSESSMENT/PLAN: Violet Cowan is a 39 y.o. female w/ PMH notable for alcoholic hepatitis c/b evolving cirrhosisand multiple recent admission as summarized in admission H&P. Given this leukocytosis was expected at prior discharge, and that infectious workup within the past week was thoroughly unremarkable will hold antibiotics. 04/26 BCx NGTD. Increased edema on exam and small R paracolic gutter pocket of ascites on POCUS at admission. Pt reports feeling bloated and described improvement of sxs with previous para, despite on 20cc fluid beingdrained. S/p IR paracentesis today w/ 3.1L fluid removal. Holding diuretics given Cr increased againtoday to 1.02, meeting criteria for BRIA. T bili continues to rise to 18 today. Consistent w/ fulminant hepatic failure. Continue to trend LFT's and follow Cr. ?? #??Decompensated Alcoholic Cirrhosis c/b portal hypertension and coagulopathy # fulminant hepatic failure # Alcohol Use Disorder in remission - Discussed pt w/ GI, no further recs at this time - trend daily MELD-Na, 26 on admission, 29 today -??continue??thiamine, folate??and multi-Vit??supplement -??Recent Cirrhosis workup panel was largely unremarkable, see previous documentation - S/p IV VitK 10mg x 3 doses??04/19-04/21 - MELD labs qd #Fever #Leukocytosis - f/u blood cx, NGTD - HOLD antibiotics given low concern for infection - No fever since 04/19. Last dose of Zosyn 04/19 @ 0400 - continue to monitor for signs/symptoms of infection?? - s/p para today, Abs PMN's: 7 ?? # Recent??Prepyloric Bleeding Ulcer # Subacute blood loss Anemia - S/p clips x4, GDA embolization earlier this month -??s/p 5 total units PRBC on recent hospitaizations -??continue??PO??PPI bid - Hgb stable -??trend??daily CBC - avoid NSAIDs ?? # Routine: - Prophylaxis: ?GI: PPI??BID ?DVT: Hold AC, SCDs and ambulate?? - Nutrition:??low salt high protein diet - Code Status:??Attempt Cardiopulmonary Resuscitation - Inpatient Isha Franklin MD, PGY-1 Medicine Blue Team (pgr. [phone]) Associated attestation - Karnia Lantigua MD - 04/28/2020 9:35 PM EDT Attending Attestation Please see Dr. Franklin''s note for details of the patient history of presentation and data. I have discussed, reviewed and agree with the documented History, Physical findings, Assessment and Plan of care. 39 y/o with recent admissions initially for UGIB from pylori ulcer requiring clipping and GDA embolization, also with acute liver injury attributed to alcoholic hepatitis in setting of EtOH use disorder, admitted with worsening LFTs/liver function and ongoing leukocytosis. Afebrile. No infiltrate on CXR, para today negative for SBP. At this juncture, leukocytosis seems related to alc hep. No steroidswith recent GIB. She has pitting edema to thighs and 3L with para today. I am concerned about her rising Cr for developing HRS. Hold diuretics, give albumin today and monitor. She is motivated to stay sober. Discussed that liver function continues to decline and recovery is not predictable at this point. MELD-Na 29, MELD 28. Not transplant candidate with recent EtOH. I have examined the patient myself and personally reviewed all studies. In addition, I certify that I am a D-H credentialed attending provider with admitting privileges and that the patient meets or has met medical necessity to require an inpatient IPI level of care meeting a minimum of two midnights or is on the CMS inpatient only procedure list (status C) due to: volume status and alcoholic hepatitis Isha Franklin MD - 04/27/2020 8:46 AM EDT Images from the original note were not included. Inpatient Medicine Progress Note ID: Violet Cowan is a 39 y.o. female w/ PMH of alcohol use disorder,??likely alcoholic??cirrhosis, medically managed microprolactinoma??and multiple recent admission. Originally she required admission for hemorrhagic shock secondary to a bleeding pre-pyloric ulcer s/p EGD clipping and IR emboliza tion??who represented??in transfer last week with fever, leukocytosis and jaundice now being transferred after f/u lab work showed worsening leukocytosis. 24 hr events: - No acute events overnight - RUQ pain last night, none this morning - BLE swelling and pain Meds: Continuous Infusions: Scheduled Meds: ??? acamprosate DR 666 mg Oral TID ??? folic acid 1 mg Oral Daily ??? multivitamin with minerals 1 tablet Oral Daily ??? pantoprazole EC 40 mg Oral BID ??? thiamine 100 mg Oral Daily ??? sodium chloride 0.9 % (flush) 5 mL Intravenous BID ??? furosemide 20 mg Oral Daily PRN Meds:.sodium chloride 0.9 % (flush), lidocaine Vital Signs: Last value Range last 24 hrs Temperature Temp: 37 ??C (98.6 ??F) Temp: [36.7 ??C (98.1 ??F)-37.2 ??C (99 ??F)] Heart Rate Heart Rate: 100 Heart Rate: -- Blood Pressure BP: 93/56 BP: (85-100)/(47-59) Respiratory Rate Resp: 17 Resp: [16-18] SpO2 SpO2: 93 % SpO2: [87 %-93 %] Patient Vitals for the past 168 hrs: Weight 04/27/20 0722 84.6 kg (186 lb 9.6 oz) 04/26/20 0447 85.6 kg (188 lb 11.2 oz) I/O: Intake/Output Summary (Last 24 hours) at 04/27/2020 0846 Last data filed at 04/27/2020 0303 Gross per 24 hour Intake 705 ml Output 650 ml Net 55 ml Physical Exam: Gen: in bed in NAD; alert, oriented, interactive HEENT: MMM, grossly normal neck ROM CV: RRR, normal S1/S2, no m/r/g Resp: CTAB, no distress Abd: +BS, soft, NT, ND Ext: WWP, no cyanosis, no clubbing, 2+ DP pulses, 2+ pitting edema bilaterally Neuro: no focal deficits noted, CN II-XII grossly intact, moves all extremities spontaneously Skin: jaundiced, no rashes, lesions, or ulcerations noted Labs Recent Labs 04/27/2043404/26/2063404/22/20 0700 WBC 22.8* 22.4* 21.7* HGB 9.6* 10.0* 10.0* HCT 28.8* 29.2* 31.5* PLATELET 453* 497* 477* Recent Labs 04/27/2043404/26/2035 04/22/20 0700 NA 133* 132* 133* K 3.5 3.6 3.7 CL 100 100 101 CO2 24 24 22 BUN 7* 7* 5* CREATININE 0.70 0.72 0.44* Recent Labs 04/27/2043404/26/2035 04/22/20 0700 04/21/20 0416 AST 159* 149* 120* 134* ALT 29 30 31* 37* ALKPHOS 122* 117* 118* 113* BILITOT 16.8* 17.4* 14.0* 12.5* BILIDIR -- >10.0* >10.0* >10.0* Recent Labs 04/27/2043404/26/2035 04/22/20 0700 04/21/20 0416 CALCIUM 8.0* 8.1* 8.0* 7.7* MAGNESIUM -- 0.85 -- -- PHOS -- 2.7 2.5 2.5 Recent Labs 04/27/2043404/26/2035 04/21/20 0416 INR 2.5 2.5 2.0 PT 28.8* 28.6* 23.1* PTT 45* 46* 42* No results for input(s): CK, TROPONINT in the last 168 hours. No results for input(s): POCGLU in the last 168 hours. No results for input(s): PROBNP in the last 168 hours. Micro Blood Cx 04/26: pending Imaging/Studies: Results for orders placed or performed during the hospital encounter of 04/26/20 XR Chest PA & Lateral (Generic) (Exam End: 04/26/2020 2:38 PM) Impression Linear atelectasis in the right midlung. Trace left pleural effusion. Thank you for letting us participate in the care of this patient. For questions regarding this report, please contact the number below. Electronically signed by: CORNELIUS BOURNE DO, [facility] ([phone]), at 04/26/2020 2:41 PM MELD-Na score: 29 at 04/27/2020 4:35 AM MELD score: 27 at 04/27/2020 4:35 AM Calculated from: Serum Creatinine: 0.70 mg/dL (Rounded to 1 mg/dL) at 04/27/2020 4:35 AM Serum Sodium: 133 mmol/L at 04/27/2020 4:35 AM Total Bilirubin: 16.8 mg/dL at 04/27/2020 4:35 AM INR(ratio): 2.5 at 04/27/2020 4:35 AM Age: 39 years 3 months ASSESSMENT/PLAN: Violet Cowan is a 39 y.o. female w/ PMH notable for alcoholic hepatitis c/b evolving cirrhosisand multiple recent admission as summarized in admission H&P. Given this leukocytosis was expected at prior discharge, and that infectious workup within the past week was thoroughly unremarkable will hold antibiotics and send repeat BCx and Urine. Increased edema on exam and small R paracolic gutter pocket of ascites on POCUS at admission. Pt reports feeling bloated and described improvement of sxs with previous para, despite on 20cc fluid beingdrained. Plan to request that IR evaluate patient for feasibility of repeat diagnostic/therapeutic para. Cr stable w/ addition of spironolactone yesterday. Plan for lasix/spironolactone again today. May consider increasing diuretic dosing, pending clinical course. ?? #Fever #Leukocytosis - f/u blood cx - HOLD antibiotics given low concern for infection - No fever since 04/19. Last dose of Zosyn 04/19 @ 0400 - continue to monitor for signs/symptoms of infection?? - consider diagnostic/therapeutic para w/ IR tomorrow ?? #??Decompensated Alcoholic Cirrhosis c/b portal hypertension and coagulopathy # Alcohol Use Disorder in remission - Discussed pt w/ GI, no further recs at this time - trend daily MELD-Na, 26 on admission, 29 today -??continue??thiamine, folate??and multi-Vit??supplement -??Recent Cirrhosis workup panel was largely unremarkable, see previous documentation - S/p IV VitK 10mg x 3 doses??04/19-04/21 - MELD labs qd ?? # Recent??Prepyloric Bleeding Ulcer # Subacute blood loss Anemia - S/p clips x4, GDA embolization earlier this month -??s/p 5 total units PRBC on recent hospitaizations -??continue??PO??PPI bid - Hgb stable -??trend??daily CBC - avoid NSAIDs ?? # Routine: - Prophylaxis: ?GI: PPI??BID ?DVT: Hold AC, SCDs and ambulate?? - Nutrition:??NPO -> low salt high protein diet if no para - Code Status:??Attempt Cardiopulmonary Resuscitation - Inpatient Isha Franklin MD, PGY-1 Medicine Blue Team (pgr. [id number]) Associated attestation - Karina Lantigua MD - 04/27/2020 2:03 PM EDT Attending Attestation Please see Dr. Franklin''s note for details of the patient history of presentation and data. I have discussed, reviewed and agree with the documented History, Physical findings, Assessment and Plan of care. 39 y/o with recent admissions initially for UGIB from pylori ulcer requiring clipping and GDA embolization, also with acute liver injury attributed to alcoholic hepatitis in setting of EtOH use disorder, admitted after labs from PCP with worsening LFTs and ongoing leukocytosis. She did not have a fever (Tm 99.2 at home). Dry cough but no acute infiltrate on CXR. Most bothered by LE swelling and feelsabdomen more firm. Recent admission also with leukocytosis and diagnostic tap without SBP. Abd duplex without PVT. No encephalopathy on exam. Added aldactone 50mg and stable Cr today (though 0.7 from 0.44 on last discharge). Still with pitting LE edema. Monitor I/O, weight on current regimen and follow renal function tomorrow. Pending diuretic response and renal function consider uptitrate diuretics further. Request IR para tomorrow (not significant ascites on last tap). Team confirmed with GI that no further intervention. No steroids with recent GIB. I discussed with Violet how sick her liver is and time will tell if gets recovery. Has f/u with GI here on 05/09. Has seen Dr. Han at [facility] previously and may benefit also local GI follow-up. She is motivated for sobriety and has plan in place with PCP. I have examined the patient myself and personally reviewed all studies. In addition, I certify that I am a [facility] credentialed attending provider with admitting privileges and that the patient meets or has met medical necessity to require an inpatient IPI level of care meeting a minimum of two midnights or is on the CMS inpatient only procedure list (status C) due to: volume status and alcoholic hepatitis Noa Durant RN - 04/26/2020 7:17 PM EDT Pt independent in room. No CP or SOB. Pt denies pain but reports tightness in BLE. Swelling to abdand BLE, see doc flowsheet. Diuresis given, see MAR. Voiding in bathroom. Eating and drinking. Pt reports abd feels smaller by the end of the day. SCD pump ordered. Pt went for chest xray. Covid testsent. Will continue to monitor documented in this encounter H&P Notes Bahman Tenorio APRN - 05/06/2020 10:34 AM EDT INTERVENTIONAL RADIOLOGY FOCUSED H&P and PRE-PROCEDURE NOTE: PCP: Julieta Odell APRN Referring Provider: Dontae Aquino Planned Procedure: Therapeutic LVP (4L max) Order Questions Answers What is the purpose of the study? Therapeutic Reason for exam and clinical history: cirrhotic with alcoholic hepatitis, with recurrent ascites (was tapped by IR earlier in this admission) Exam/Procedure requested: Para (please take off no more than 4L of fluid) Is the patient on anticoagulant / anitplatelet therapy ? No Is the patient ? Unknown Requested Date 05/06/20 Presenting Diagnosis/ Complaint: From Dr. Nunes's note, Violet Cowan is a 39 y.o. female with EtOH??cirrhosis (newly dx, never bx-confirmed) adm 04/26 with persistent leukocytosis, worsening peripheral edema and ascites. Recent admission 04/11-04/17 in hemorrhagic shock / spurting gastric ulcer s/p clipping followed by GDA embolization (04/11). Has remained sober since that time and motivated to remain so. Discussed transfer with [facility] for expedited transplant eval and exceptions pathway who recommended outpatient eval. Started on prednisolone 04/30 for worsening hyperbilirubinemia w/ some improvement in her T bili. Lille at day 4 promising. Attempted diuresis for ascites and leg edema w/ development of oliguric BRIA. Suspect this is related to intravascular depletion / pre-renal rather than HRS. Last LVP was 04/28 for 2.8L. No interval imaging. Dr. Taveras's team feels ascites has recurred basedon physical exam. If present, team would like limit of 4L. INR 2.4 Past Medical/Surgical History: Patient Active Problem List Diagnosis Code ??? GI bleed K92.2 ??? Jaundice R17 ??? Alcoholic hepatitis with ascites K70.11 ??? Alcoholic hepatitis K70.10 No past medical history on file. Past Surgical History: Procedure Laterality Date ??? IR ARTERIAL INTERVENTION 04/12/2020 IR Arterial Intervention 04/12/2020 Carlitos Steve [facility] ??? IR PARACENTESIS 04/21/2020 IR Paracentesis 04/21/2020 Darren Roy MD [facility] ??? IR PARACENTESIS 04/28/2020 IR Paracentesis 04/28/2020 Kye Nazario MD [facility] Medications: Scheduled Meds: ??? albumin human 25 % 12.5 g Intravenous Q15 Min ??? prednisoLONE 40 mg Oral Daily ??? acamprosate DR 666 mg Oral TID ??? folic acid 1 mg Oral Daily ??? multivitamin with minerals 1 tablet Oral Daily ??? pantoprazole EC 40 mg Oral BID ??? thiamine 100 mg Oral Daily ??? sodium chloride 0.9 % (flush) 5 mL Intravenous BID Continuous Infusions: PRN Meds:.ondansetron, ondansetron ODT, dextromethorphan-guaiFENesin, acetaminophen, sodium chloride0.9 % (flush), lidocaine Allergies: Patient has no known allergies. Social History and Habits: Social History Socioeconomic History ??? Marital status: [...] Substance and Sexual Activity ??? Alcohol use: Yes Alcohol/week: 10.0 standard drinks Types: 10 Shots of liquor per week ??? Drug use: Never ??? Sexual activity: Yes Partners: Male control/protection: Other-see comments Comment: none Lifestyle ??? Physical activity Days per week: Not on file Minutes per session: Not on file ??? Stress: Not on file Relationships ??? Social connections Talks on phone: Not on file Gets together: Not on file Attends uatsdin service: Not on file Active member of [...] Social History Narrative ??? Not on file Significant Family History: No family history on file. Pertinent ROS: as per HPI Labs: Lab Results Component Value Date WBC 41.5 (CRIT) 05/06/2020 HCT 30.2 (L) 05/06/2020 PLATELET 277 05/06/2020 INR 2.4 05/06/2020 BUN 18 05/06/2020 CREATININE 0.57 (L) 05/06/2020 ALKPHOS 118 (H) 05/06/2020 AST 204 (H) 05/06/2020 ALBUMIN 3.7 05/06/2020 BILIDIR >10.0 (H) 05/01/2020 BILITOT 19.5 (H) 05/06/2020 ALT 56 (H) 05/06/2020 PROT 6.6 05/06/2020 K 4.1 05/06/2020 Assessment: 39 y.o. female with ETOH cirrhosis, admitted with recurrent ascites (no imaging), LE swelling. Low diuresing resulting in BRIA; concern for HRS. Thus, now on Albumin challenge Physical exam concerning for recurrent ascites. Plan to US in pre-room. 4L LIMIT. INR 2.4 Plan: Plan Planned procedure: 4 LITER LIMIT LVP Labs to be performed day of procedure: No labs Sedation: No Sedation Prophylactic antibiotic : None Contrast: No contrast Additional medications for procedure: Lidocaine Medications to discontinue (and days held): None Planned access site: TBD; US IN PRE-ROOM Position: Supine Cytopathology presence needed: No Consent: Scanned 05/06/2020 Star Rivera DO - 04/28/2020 7:06 AM EDT INTERVENTIONAL RADIOLOGY FOCUSED H&P and PRE-PROCEDURE NOTE: PCP: Julieta Odell APRN Referring Provider: Dontae Aquino Planned Procedure: Planned procedure: Therapeutic and Diagnostic para Procedure Indication: Bloating and volume overload Order Questions Answers What is the purpose of the study? Therapeutic and Diagnostic Reason for exam and clinical history: alcoholic hepatitis w/ volume overload, eval if enough ascitesto tap Is the patient on anticoagulant / anitplatelet therapy ? No Is the patient ? Unknown Does patient require sedation? None Requested Date 04/28/20 Presenting Diagnosis/ Complaint: Violet Cowan is a 39 y.o. female with recent admissions initially for UGIB from pylori ulcer requiring clipping and GDA embolization, also with worsening liver failure in setting of alcoholic hepatitis with bloating and volume overload. Not transplant candidate with recent EtOH. Date/Procedure Meds Given/Comments 04/11/20 angiography??with multiple coils for embolization in GDA. ICU patient ??04/21/20 Diagnostic Paracentesis 40 cc ??Local only Past Medical/Surgical History: Patient Active Problem List Diagnosis Code ??? GI bleed K92.2 ??? Jaundice R17 ??? Alcoholic hepatitis with ascites K70.11 ??? Alcoholic hepatitis K70.10 No past medical history on file. Past Surgical History: Procedure Laterality Date ??? IR ARTERIAL INTERVENTION 04/12/2020 IR Arterial Intervention 04/12/2020 Carlitos Steve, [facility] ??? IR PARACENTESIS 04/21/2020 IR Paracentesis 04/21/2020 Darren Roy MD [facility] Medications: No current facility-administered medications on file prior to encounter. Current Outpatient Medications on File Prior to Encounter Medication Sig Dispense Refill ??? furosemide (Lasix) 20 mg Tablet Take 1 tablet by mouth daily. 30 tablet 0 ??? folic acid (Folvite) 1 mg [...] 3 times daily. 180 tablet 0 Allergies: Patient has no known allergies. Social History and Habits: Social History Socioeconomic History ??? Marital status: [...] Substance and Sexual Activity ??? Alcohol use: Yes Alcohol/week: 10.0 standard drinks Types: 10 Shots of liquor per week ??? Drug use: Never ??? Sexual activity: Yes Partners: Male control/protection: Other-see comments Comment: none Lifestyle ??? Physical activity Days per week: Not on file Minutes per session: Not on file ??? Stress: Not on file Relationships ??? Social connections Talks on phone: Not on file Gets together: Not on file Attends uatsdin service: Not on file Active member of [...] Social History Narrative ??? Not on file Significant Family History: No family history on file. Pertinent ROS: as per HPI Labs: Lab Results Component Value Date WBC 24.1 (H) 04/28/2020 HCT 29.9 (L) 04/28/2020 PLATELET 442 (H) 04/28/2020 INR 2.6 04/28/2020 BUN 8 04/28/2020 CREATININE 1.02 04/28/2020 ALKPHOS 118 (H) 04/28/2020 AST 175 (H) 04/28/2020 ALBUMIN 2.2 (L) 04/28/2020 BILIDIR >10.0 (H) 04/26/2020 BILITOT 18.1 (H) 04/28/2020 ALT 28 04/28/2020 PROT 5.0 (L) 04/28/2020 K 3.3 (L) 04/28/2020 Physical Exam: Pending (to be performed in angio the day of procedure) ASA: Pending (to be assessed in angio the day of procedure) Mallampati Class: Pending (to be assessed in angio the day of procedure) Assessment: 39 y.o. female with bloating and volume overload Plan: US in pre Plan Planned procedure: Therapeutic and Diagnostic para Labs to be performed day of procedure: No labs Sedation: No Sedation Prophylactic antibiotic : None Contrast: No contrast Additional medications for procedure: Lidocaine Medications to discontinue (and days held): None Planned access site: Abd Position: Supine Cytopathology presence needed: No Consent: Scanned 04/28/2020 Evin Mckeon Terence - 04/26/2020 5:03 AM EDT Images from the original note were not included. [facility] (#[id number]) History and Physical Patient info: Name: Violet Cowan : 1980 PCP: Julieta Odell APRN PCP phone number: [phone] Date of Admission: 04/26/2020 ( Hospital Day 0 days ) Responsible Attending:Mikey Mtz MD There are no hospital problems to display for this patient. Active Non-Hospital Problems Diagnosis ??? Jaundice ??? GI bleed ID: Violet Cowan is a 39 y.o. female w/ PMH of alcohol use disorder,??likely alcoholic??cirrhosis, medically managed microprolactinoma??and multiple recent admission. Originally she required admission for hemorrhagic shock secondary to a bleeding pre-pyloric ulcer s/p EGD clipping and IR emboliza tion??who represented??in transfer last week with fever, leukocytosis and jaundice now being transferred after f/u lab work showed worsening leukocytosis. Mrs. Cowan presented to PCP office yesterday for routine post hospitalization lab work in her usual state of health. She was found to be afebrile, HD stable and had worsening leukocytosis compared to labs at recent discharge as well as up trending LFTs. In this setting she was sent to local ED, where preliminary workup affirmed the above lab abnormalities to be true. Given recent [facility] [place] request for transfer was made and accepted. Recent hospitalizations and health care exposures are summarized as followed: ICU admission from 04/11-04/14 treated for hemorrhagic shock secondary to a vigorously bleeding pre-pyloric ulcer that required 4-clips and then IR embolization to eventually achieve stabilization. Transferred to [facility] medicine 04/14-04/17 Completed initial cirrhosis workup with assistance of GI,ultimately thought to have alcoholic hepatitis and treatment w/ steroids was precluded by GIB on presentation. Of note a RUQUS was initially concerning for PVT, prompting MRI that showed patent hepaticand portal vessels. While inpatient she was given CTX as SBP ppx (given GIB and mild ascites seen onimaging) and discharged on??ciprofloxacin to complete 7 day total course. 04/19 Patient presented to PCPs office and had a documented fever to 102F which defervesced on recheck in 20 minutes to 99.0 (both readings taken w/ transcutaneous monitor). She was then transferred to local ED, where she again was afebrile, and ultimately transferred to [facility] that day. 04/19-04/22 On arrival she was given IV zosyn x 1, but then clinically monitored off antibiotcs for fever or other infectious stigmata. Blood and urine cultures from this hospitalization were negative, and with serial monitoring of ascites that accumulated to a level that was tappable by IR studies ultimately showed no SBP and SAAG c/w portal hypertension. She was started on po lasix to manage extravascular fluid, and despite LFTs and WBC count up trending pt opted to be discharged home with close outpt monitoring of labs. Per d/c provider instructions if Violet has any additional fevers, hard tocontrol ascites, up-trending bilirubin or symptoms concerning for hepatic encephalopathy we recommend that she go to the nearest emergency room for further work-up and evaluation 04/25 see above In talking with her she endorses taking all medications as prescribed, with the assistance of her . She does note that since discharge she has become more swollen, particularly her belly and herlegs. She will sit most of the day with feet raised to good effect in decreasing edema, but upon standing they go right back to being very swollen. Yesterday morning she notes diffuse abdominal discomfort 2/2 abdominal stretch and distension, she describes a tight abdomen. This improved a little aftertransfer to [facility], with improvement in the tightness, discomfort and distension. She has remained abstinent from etoh or other substances since last discharge. See below for full ROS. ROS: Positive findings are BOLDED. GEN: Fever, chills, fatigue, nocturnal sweats anorexia. CV: chest pain, palpitations, orthopnea, paroxysmal noctural dyspnea, claudication PULM: dyspnea, cough (unchanged from prior, nonproductive), wheezing, sputum production ABD: abdominal pain 2/2 distansion, dysphagia, odynophagia, nausea, vomiting, diarrhea, constipation, melena, hematochezia. : dysuria, hematuria NEURO: anesthesia, paresthesia, asymmetric weakness, headache, photophobia, or phonophobia. SKIN: rashes, ulcers HEM: Bleeding, bruising MSK: arthralgia, arthritis, myalgia PSYCH: Depression, anhedonia, suicidal ideation, homicidal ideation No past medical history on file. Past Surgical History: Procedure Laterality Date ??? IR ARTERIAL INTERVENTION 04/12/2020 IR Arterial Intervention 04/12/2020 Carlitos Steve, DO [facility] RAD ??? IR PARACENTESIS 04/21/2020 IR Paracentesis 04/21/2020 Darren Roy MD [facility] No family history on file. Social History Socioeconomic History ??? Marital status: [...] on file Tobacco Use ??? Smoking status: Not on file Substance and Sexual Activity ??? Alcohol use: Not on file ??? Drug use: Not on file ??? Sexual activity: Not on file Lifestyle ??? Physical activity Days per week: Not on file Minutes per session: Not on file ??? Stress: Not on file Relationships ??? Social connections Talks on phone: Not on file Gets together: Not on file Attends uatsdin service: Not on file Active member of [...] Social History Narrative ??? Not on file Medications Prior to Admission Medication Sig Dispense Refill Last Dose ??? furosemide (Lasix) 20 mg Tablet Take 1 tablet by mouth daily. 30 tablet 0 ??? folic acid (Folvite) 1 mg [...] mouth 3 times daily. 180 tablet 0 No Known Allergies Objective: Vitals Last value Range last 24 hrs Temperature Temp: 36.8 ??C (98.2 ??F) Temp: [36.8 ??C (98.2 ??F)] Heart Rate Heart Rate: -- Blood Pressure BP: -- Art Line BP BP (Arterial Line): -- MAP (NBP): -- Respiratory Rate Resp: 20 Resp: [20] SpO2 SpO2: -- Oxygen Delivery Oxygen Therapy O2 Device: None (Room air) No intake or output data in the 24 hours ending 04/26/20 0504 Patient Vitals for the past 168 hrs: Weight 04/26/20 0447 85.6 kg (188 lb 11.2 oz) Admit wt: 85.59 kg Physical Exam: Gen: NAD. Laying in bed appropriately engaged in conversation. Diffusely jaundiced. HEENT:NC/AT. Sclera icteric. Non-injected. oropharynx nonerythematous. No exudates. Uvula midline and palate rises symmetrically. CV: RRR. Normal S1 and S2. No M/R/G. Pulm/chest: clear to ascultation bilaterally in the posterior lung schuster with diminished breath sounds in R lung base. Normal WOB. Anterior chest wall with blanching spider angioma Abd: hypoactive bowel sounds. Protuberant,, soft, distended, tender to light palpation in epigastricregion. No rebound gaurding. Shifting dullness to percussion. Ext: 3+ b/l LE edema up to knees.No clubbing, fuentes erythema or cyanosis. Neuro: alert and appropriate. Non-focal. Grossly intact. Psych: cooperative. POCUS exam notable for R paracolic gutter fluid collection Labs: CBC: Recent Labs 04/22/20 0704/21/2041504/20/20 0308 WBC 21.7* 17.1* 15.0* HGB 10.0* 10.0* 10.1* HCT 31.5* 29.6* 30.5* PLATELET 477* 479* 490* NEUTROABS 18.15* 13.64* 11.02* Chemistry: Recent Labs 04/22/2069904/21/2041504/20/20 030 NA 133* 131* 133* K 3.7 3.5 3.6 CL 101 101 102 CO2 22 22 23 BUN 5* 7* 8 CREATININE 0.44* Not Perf 0.52* GLUCOSE 97 100 114 ANIONGAP 10 8 8 Recent Labs 04/22/2069904/21/2041504/20/2030704/19/20 030 CALCIUM 8.0* 7.7* 7.9* 7.8* MAGNESIUM -- -- -- 0.80 PHOS 2.5 2.5 2.4* 1.4* LFT's: Recent Labs 04/22/2069904/21/2041504/20/20 030 BILITOT 14.0* 12.5* 12.0* BILIDIR >10.0* >10.0* >10.0* ALBUMIN 2.3* 2.3* 2.5* ALKPHOS 118* 113* 116* ALT 31* 37* 41* AST 120* 134* 144* Coags: Recent Labs 04/21/2041504/20/20 0905 PT 23.1* 22.9* INR 2.0 2.0 PTT 42* 43* MELD-Na score: 26 at 04/22/2020 7:00 AM MELD score: 24 at 04/22/2020 7:00 AM Calculated from: Serum Creatinine: 0.44 mg/dL (Rounded to 1 mg/dL) at 04/22/2020 7:00 AM Serum Sodium: 133 mmol/L at 04/22/2020 7:00 AM Total Bilirubin: 14.0 mg/dL at 04/22/2020 7:00 AM INR(ratio): 2.0 at 04/21/2020 4:16 AM Age: 39 years 3 months Microbiology: Para (04/21): 5 PMNs Pertinent radiology/diagnostic studies: RUQ U/S (04/19): 1. Coarsened hepatic parenchyma, and surrounding ascites, with a diminutive but recanalized umbilical vein. Prominent liver span. No definite intrahepatic focal lesion. 2. The gallbladder with internal echogenic substance without shadowing this could represent nonshadowing stones/sludge with nonspecific wall thickening, in the setting of ascites. No definite current evidence of acute cholecystitis. 3. Splenomegaly and surrounding ascites. 4. Vascular evaluation with patent hepatic veins. To/fro bidirectionality of the main portal vein is again appreciated, normal size main portal vein. The right and left portal veins are also bidirectional in flow. The portal venous system remains patent. These findings are consistent with recent sonographic comparison. ASSESSMENT/PLAN: Violet Cowan is a 39 y.o. female w/ PMH notable for alcoholic hepatitis c/b evolving cirrhosisand multiple recent admission as summarized above. Given this leukocytosis was expected at prior discharge, and that infectious workup within the past week was thoroughly unremarkable will hold antibiotics and send repeat BCx and Urine. I appreciate marked worsening of edema, and saw a small R paracolic gutter pocket of ascites on POCUS this am, but given overall stability and recent diagnostic para last week will defer repeat diagnostic para to primary team in a few hours as I do not believe this small delay if indicated would pattern changer and repairer or prognosis. Goal of this stay should largely be on s tabilization of fluid status and likely initiation of spirolactone with lasix. I will hold on further changes to prior regiment until we have initial lab work back. See below for problem based plan. #Fever #Leukocytosis - f/u OSH blood cultures and send 2 more hereon arrival - UCx negative last hospitalization, repeat today - HOLD antibiotics given low concern for infection - No fever since 04/19. Last dose of Zosyn 04/19 @ 0400 - continue to monitor for signs/symptoms of infection - consider diagnostic para to r/o SBP, pt kept NPO in case trip to IR warranted ?? #??Decompensated Alcoholic Cirrhosis c/b portal hypertension and coagulopathy # Alcohol Use Disorder in remission - Will let GI team know she is here again, appreciated recs - trend daily MELD-Na, 27 on discharge 04/22, today -??continue??thiamine, folate??and multi-Vit??supplement -??Recent Cirrhosis workup panel was largely unremarkable, see previous documentation - S/p IV VitK 10mg x 3 doses??04/19-04/21 - MELD labs qd ?? # Recent??Prepyloric Bleeding Ulcer # Subacute blood loss Anemia - S/p clips x4, GDA embolization earlier this month -??s/p 5 total units PRBC on recent hospitaizations -??continue??PO??PPI bid -??trend??daily CBC, recently Hgb 10.0 at discharge (04/22) - avoid NSAIDs ?? # Routine: - Prophylaxis: ?GI: PPI??BID ?DVT: Hold AC, SCDs and ambulate?? - Nutrition:??NPO -> low salt high protein diet if no para - Code Status:??Attempt Cardiopulmonary Resuscitation - Inpatient Evin Mckeon DO, PGY-3 04/26/2020 [facility] Medicine # [id number] Associated attestation - Karina Lantigua MD - 04/26/2020 2:48 PM EDT Attending Staff Admission Documentation I have examined the patient myself on 04/26/2020 and reviewed all labs and studies personally. Please see Dr. Mckeon's documentation for details of the patient history of presentation and data. I have reviewed and agree with the documented history with ROS, physical findings, labs/studies, assessment and plan of care. 39 y/o with recent admissions initially for UGIB from pylori ulcer requiring clipping and GDA embolization, also with acute liver injury attributed to alcoholic hepatitis in setting of EtOH use disorder, referred by PCP with labs with worsening LFTs and ongoing leukocytosis. Clarification - she did not have a fever (Tm 99.2 at home). Dry cough. Most bothered by LE swelling. Recent admission also withleukocytosis and diagnostic tap without SBP. Abd duplex without PVT. She is oriented, no encephalopathy. Warrants diuretic uptitration with close monitoring of renal function (Cr 0.7 from 0.44 on discharge). Unfortunately, worsening liver failure in setting of alcoholic hepatitis. Team confirmed with GI that not recommending steroids and no further intervention. Not transplant candidate with recent EtOH. Continue supportive care and diuresis as renal function allows. documented in this encounter Miscellaneous Notes Plan of Care - Vero Keith RN - 05/06/2020 3:54 PM EDT Problem: Patient Care Overview Goal: Plan of Care Review Outcome: Ongoing (Interventions Implemented as Appropriate) 05/06/20 1552 Coping/Psychosocial Plan Of Care Reviewed With patient Plan of Care Review Progress progress toward functional goals as expected OUTCOME EVALUATION NOTE: OUTCOME SUMMARY: Patient A&O, no pain. VSS. Reports dry cough that kept her up at night. States it is better whensitting upright. Jaundice noted. Patient ambulating in room independently. BM reported today, voiding concentrated orange urine. Paracentesis today, albumin given per orders after procedure. Patient eager for transport to [facility]. PLAN MOVING FORWARD: Symptom management Transfer to [facility] INDIVIDUALIZED FALL PREVENTION INTERVENTIONS: Patient-specific fall risk factors per assessment: [current deficits]: Generalized weakness, secondary diagnosis Assistance [level of assistance required for transfers and ambulation]: IND Supervision [direct monitoring required during toileting and ADLs]: IND Surveillance [continuous indirect monitoring]: Masimo, hourly rounds Patient-specific fall prevention interventions for sensory deficits provided, if applicable: [X] Yes CPG GOAL OUTCOME EVALUATION: Consult Note - Ghassan Laguna MD - 05/06/2020 12:07 PM EDT PATIENT: Violet Cowan : 1980 Renal Dialysis Follow-up Interval history: Patient reports increased work of breathing which she attributes to expanding ascites.. And she is anticipating paracentesis today. Assessment/Plan: #BRIA Robust response to volume expansion with albumin suggestive of prerenal, likely in setting hepatorenal physiology despite peripheral volume overload. Agree with paracentesis and aggressive work-up ruleout of infectious causes. Would replace with albumin if large amount of fluid tapped. Maintain salt restricted diet. Given patient's massive overload will in time have to retrial diuretics but would await renal stability before trialing this. Hopefully we begin to see resolution of hepatitis reversinghepatorenal physiology MEDICATIONS: ??? prednisoLONE 40 mg Oral Daily ??? acamprosate DR 666 mg Oral TID ??? folic acid 1 mg Oral Daily ??? multivitamin with minerals 1 tablet Oral Daily ??? pantoprazole EC 40 mg Oral BID ??? thiamine 100 mg Oral Daily ??? sodium chloride 0.9 % (flush) 5 mL Intravenous BID No Known Allergies ROS: Unless otherwise stated in history 10 point review of systems is negative PHYSICAL EXAM: Last value Temperature Temp: 37.3 ??C (99.1 ??F) Heart Rate Heart Rate: (!) 112 Blood Pressure BP: 97/43 Respiratory Rate Resp: 24 SpO2 SpO2: 95 % Appearance - Alert, mild distress Skin - No exanthem. HEENT - Sclera white. Mucous membranes moist. Chest:. Lungs clear to ausculatation w/o wheezes/ rhonchi/ crackles. Heart - S1 and S2 clear w/o murmur, gallop, or rub. JVP not elevated. Abd -distended. Non tender. Ext - . Warm. No cyanosis. +2 pitting edema bilateral lower extremities. Neuro - No asterixis. STUDIES: Labs: CBC: Recent Labs 05/06/2054805/05/2044005/04/20317 WBC 41.5* 32.9* 29.1* HGB 9.8* 9.5* 9.6* PLATELET 277 240 264 Chemistry: Recent Labs 05/06/2049 05/05/2044005/04/20317 NA 136 134* 135 K 4.1 4.5 4.3 CL 99 98 100 CO2 26 26 26 BUN 18 21* 20* CREATININE 0.57* 1.56* 1.02 GLUCOSE 116 106 122 Recent Labs 05/06/20 0549 05/05/2044005/04/20317 CALCIUM 9.1 8.4* 8.4* MAGNESIUM 0.99 0.91 0.93 PHOS 2.8 3.2 3.1 LFT's: Recent Labs 05/06/2049 05/05/2044005/04/2031705/01/20 0511 04/26/20 0635 04/22/20 0700 BILITOT 19.5* 17.6* 17.7* < > 21.2* < > 17.4* 14.0* BILIDIR -- -- -- -- >10.0* -- >10.0* >10.0* ALBUMIN 3.7 2.6* 2.6* < > 2.6* < > 2.3* 2.3* ALKPHOS 118* 121* 143* < > 127* < > 117* 118* ALT 56* 48* 43* < > 27 < > 30 31* AST 204* 207* 206* < > 178* < > 149* 120* < > = values in this interval not displayed. Ghassan Laguna MD, MPH Section of Nephrology #[id number] Plan of Care - Nia Burnett RN - 05/06/2020 4:00 AM EDT Problem: Patient Care Overview Goal: Plan of Care Review Outcome: Ongoing (Interventions Implemented as Appropriate) 05/06/20 0345 Coping/Psychosocial Plan Of Care Reviewed With patient Plan of Care Review Progress progress toward functional goals as expected OUTCOME EVALUATION NOTE: OUTCOME SUMMARY: Assumed care of pt around 2300. Pt A+Ox4. VSS on 2-3L NC. Pt denies having any chest pain; intermittent SOB. Pt denies having any pain. Pt c/o cough; given PRN robitussin x2 with good effect. Other medications administered, see MAR. Pt independent in the room; rings appropriately for staff assistance.Pt rested comfortably between care. Safety maintained. No further events. PLAN MOVING FORWARD: Medication administration, discharge planning INDIVIDUALIZED FALL PREVENTION INTERVENTIONS: Patient-specific fall risk factors per assessment: [current deficits]: Generalized weakness, IV sites, oxygen Assistance [level of assistance required for transfers and ambulation]: Independent Supervision [direct monitoring required during toileting and ADLs]: Independent Surveillance [continuous indirect monitoring]: Purposeful rounding, room near nurse's station, safety checks Patient-specific fall prevention interventions for sensory deficits provided, if applicable: N/A CPG GOAL OUTCOME EVALUATION: Plan of Care - Lulu Brody RN - 05/05/2020 6:20 PM EDT Problem: Patient Care Overview Goal: Plan of Care Review Outcome: Ongoing (Interventions Implemented as Appropriate) 05/05/201818 Coping/Psychosocial Plan Of Care Reviewed With patient Plan of Care Review Progress progress toward functional goals as expected OUTCOME EVALUATION NOTE: OUTCOME SUMMARY: ?? Pt A&Ox4. VSS on RA. Pt c/o 10/08 pain, denied offer for pain meds. Pos d/c to [facility] for evaluation for liver transplant. Scheduled meds given. Ind in the room. Pt resting in bed, safety maintained. ?? PLAN MOVING FORWARD: ?? D/C planning ?? INDIVIDUALIZED FALL PREVENTION INTERVENTIONS: ?? Patient-specific fall risk factors per assessment: [current deficits]:?IV access, gen weakness ? Assistance [level of assistance required for transfers and ambulation]:?Ind ?? Supervision [direct monitoring required during toileting and ADLs]:?Ears on ?? Surveillance [continuous indirect monitoring]:?Masimo ?? Patient-specific fall prevention interventions for sensory deficits provided, if applicable:?[X] N/A ? CPG GOAL OUTCOME EVALUATION:? Consult Note - Pura Su MD - 05/05/2020 2:04 PM EDT Images from the original note were not included. HYPERTENSION/ NEPHROLOGY PROGRESS NOTE PATIENT: Violet Cowan : 1980 REASON FOR CONSULTATION: Consulted by Dr. Taveras for BRIA Violet Cowan is a 39 y.o. female with a medical history of alcohol use disorder, likely alcoholic cirrhosis, and medically managed microprolactinoma who is [place] [facility] [place]. Her course is complicated by BRIA for which Nephrology is consulted. LFTs continue to worsen, MELD is 32 today consistent with decompensated alcoholic cirrhosis. Patientis on day 6/7 of prednisolone. She has experienced progressive volume overload in this setting. Diuretics were attempted 10/3 & 05/04 (05/03 PO lasix 20 mg, 05/04 PO lasix 20 mg & aldactone 50 mg). Creatinine has unfortunately been slowly rising over the last week. Urine output has declined over the last 24-48 hours with only 300 cc out today thus far. Patient denies significant difficulty breathing but endorses generalized discomfort with this degree of swelling. Other ROS negative for difficulty urinating, abdominal pain. ROS: Negative omitting above. MEDICATIONS: ??? albumin human 25 % 12.5 g Intravenous Q15 Min ??? prednisoLONE 40 mg Oral Daily ??? acamprosate DR 666 mg Oral TID ??? folic acid 1 mg Oral Daily ??? multivitamin with minerals 1 tablet Oral Daily ??? pantoprazole EC 40 mg Oral BID ??? thiamine 100 mg Oral Daily ??? sodium chloride 0.9 % (flush) 5 mL Intravenous BID PHYSICAL EXAM: Last value Range last 24 hrs Temperature Temp: 37.2 ??C (99 ??F) Temp: [36.5 ??C (97.7 ??F)-37.3 ??C (99.1 ??F)] Heart Rate Heart Rate: 90 Heart Rate: [86-97] Blood Pressure BP: 104/62 BP: (94-105)/(57-63) Respiratory Rate Resp: 17 Resp: [16-19] SpO2 SpO2: 93 % SpO2: [87 %-94 %] Patient is awake alert did not seem to be in acute distress, jaundiced appearing HEENT: MMM, scleral icterus, EOMI Pulm: breathing comfortably ORA Abdomen: distended, nontender Extremities: 3+ pitting edema in the bilateral lower extremities Neuro: grossly intact, alert and oriented, moving all fours Intake/Output Summary (Last 24 hours) at 05/05/2020 1408 Last data filed at 05/05/2020 1200 Gross per 24 hour Intake 960 ml Output 375 ml Net 585 ml STUDIES: Labs: CBC: Recent Labs 05/05/2044005/04/2031705/03/20 0511 WBC 32.9* 29.1* 35.5* HGB 9.5* 9.6* 10.6* PLATELET 240 264 335 Recent Labs 05/05/2044005/04/2031703/20 0511 NA 134* 135 134* K 4.5 4.3 4.2 CL 98 100 99 CO2 26 26 26 BUN 21* 20* 17 CREATININE 1.56* 1.02 0.93 GLUCOSE 106 122 116 Recent Labs 05/05/20 0441 05/04/208 05/03/20 0511 CALCIUM 8.4* 8.4* 8.9 MAGNESIUM 0.91 0.93 1.00 PHOS 3.2 3.1 3.3 LFT's: Recent Labs 05/05/2044005/04/208 05/03/20 0511 05/01/20 0511 04/26/20 0635 04/22/20 0700 BILITOT 17.6* 17.7* 21.4* < > 21.2* < > 17.4* 14.0* BILIDIR -- -- -- -- >10.0* -- >10.0* >10.0* ALBUMIN 2.6* 2.6* 2.9* < > 2.6* < > 2.3* 2.3* ALKPHOS 121* 143* 137* < > 127* < > 117* 118* ALT 48* 43* 35* < > 27 < > 30 31* AST 207* 206* 201* < > 178* < > 149* 120* < > = values in this interval not displayed. IMPRESSION/ RECOMMENDATIONS: [age] year old female with decompensated alcoholic cirrhosis. Nephrology is consulted for BRIA. Agree with volume expansion with albumin for prerenal physiology. Unclear if this reflects hepatorenalphysiology, will need to assess response to albumin challenge. Would defer further diuresis today. Recommend urine microscopy & sediment to assess for tubular injury as well as urine lytes. - Agree with albumin challenge - Recommend urine microscopy - Urine lytes - We will spin a sample ourselves - Would readdress indications for therapeutic paracentesis daily. Thanks for letting us participate in the care of this patient. Seen and Discussed w/ Dr. Jase Su MD PGY3 IM, Nephrology Consult Service 05/05/2020 Associated attestation - Ghassan Laguna MD - 05/05/2020 5:12 PM EDT I saw and discussed the patient with Dr. Su and I agree with the assessment plan. [id number] with prolonged hospitalization in the setting of alcoholic hepatitis. Patient has ongoing ascites and +2-3 pitting edema bilateral lower extremities. Urine electrolytes consistent with prerenal picture she has had uptrending creatinine in the past several days and agree with diuretic holiday with an attempt at intravascular expansion with albumin. we will assess urine sample when patient able to give to assess for signs of reversible kidney injury. Would aggressively rule out and treat infectious symptoms. Patient reports multiple paracentesis without evidence of SBP and if continues to accumulate ascites would repeat this. Blood pressure is on the soft side and if no improvement in the coming days with volume expansion may have to consider vasoconstrictive therapy Plan of Care - Sole Carpio RN - 05/05/2020 5:34 AM EDT Problem: Patient Care Overview Goal: Plan of Care Review Outcome: Ongoing (Interventions Implemented as Appropriate) 05/05/20 0512 Coping/Psychosocial Plan Of Care Reviewed With patient Plan of Care Review Progress progress toward functional goals as expected OUTCOME EVALUATION NOTE: OUTCOME SUMMARY: Pt resting in bed. Plan of care reviewed with pt. Pt reporting RUQ abdominal pain during shift. Pt reported pain being worse than previous days. Abdomen distended but soft on palpation. MD notified. PRN tylenol given x1. Pt placed on 2L NC during sleep. Pt on RA while awake. Pt sleeping between care. Safety maintained. Call light within reach. Will continue to monitor and notify MD of changes. PLAN MOVING FORWARD: Diuresis Fluid restriction Discharge planning INDIVIDUALIZED FALL PREVENTION INTERVENTIONS: Patient-specific fall risk factors per assessment: [current deficits]: Generalized weakness; edema Assistance [level of assistance required for transfers and ambulation]: IND/SBA Supervision [direct monitoring required during toileting and ADLs]: SBA Surveillance [continuous indirect monitoring]: Purposeful rounding; masimo Patient-specific fall prevention interventions for sensory deficits provided, if applicable: CPG GOAL OUTCOME EVALUATION: Plan of Care - Lulu Brody RN - 05/04/2020 3:47 PM EDT Problem: Patient Care Overview Goal: Plan of Care Review Outcome: Ongoing (Interventions Implemented as Appropriate) 05/04/20 1543 Coping/Psychosocial Plan Of Care Reviewed With patient Plan of Care Review Progress progress toward functional goals as expected OUTCOME EVALUATION NOTE: OUTCOME SUMMARY: ?? Pt A&Ox4. VSS on RA. Pt c/o 10/08 pain, denied offer for pain meds. Spironolactone given once today per MD orders, see MAR. Scheduled meds given. Ind in the room. Pt resting in bed, safety maintained. ?? PLAN MOVING FORWARD: ?? D/C planning ?? INDIVIDUALIZED FALL PREVENTION INTERVENTIONS: ?? Patient-specific fall risk factors per assessment: [current deficits]: IV access, gen weakness ?? Assistance [level of assistance required for transfers and ambulation]: Ind ?? Supervision [direct monitoring required during toileting and ADLs]: Ears on ?? Surveillance [continuous indirect monitoring]: Masimo ?? Patient-specific fall prevention interventions for sensory deficits provided, if applicable: [X] N/A ? CPG GOAL OUTCOME EVALUATION: Plan of Care - Fidelia Gaxiola RN - 05/04/2020 5:30 AM EDT Problem: Patient Care Overview Goal: Plan of Care Review Outcome: Ongoing (Interventions Implemented as Appropriate) 05/03/20 1700 05/03/202058 Coping/Psychosocial Plan Of Care Reviewed With -- patient Plan of Care Review Progress progress toward functional goals as expected -- OUTCOME EVALUATION NOTE: ?? OUTCOME SUMMARY: ?? A&Ox4. VS and assessment as documented. Pt currently on 2 L NC. This Am BP was 89/52 while sleeping, MD guevara. Legs edema is worsening, pt complained of worsening abdominal fullness/pain.Pt c/o legpain when ambulating. Pt resting in between care. Safety maintained. Will continue to monitor and page MD with any changes. ?? PLAN MOVING FORWARD: Steroid taper Diurese Monitor labs Discharge planing ?? INDIVIDUALIZED FALL PREVENTION INTERVENTIONS: ?? Patient-specific fall risk factors per assessment: [current deficits]: Gen weakness, increase leg pain when ambulating, secondary diagnosis ?? Assistance [level of assistance required for transfers and ambulation]: IND ?? Supervision [direct monitoring required during toileting and ADLs]: IND ?? Surveillance [continuous indirect monitoring]: Call soni in reach, room near unit station, Masimo on, Purposeful rounding. ?? Patient-specific fall prevention interventions for sensory deficits provided, if applicable: [X] No ? CPG GOAL OUTCOME EVALUATION: ? Plan of Care - Lulu Brody RN - 05/03/2020 5:08 PM EDT Problem: Patient Care Overview Goal: Plan of Care Review Outcome: Ongoing (Interventions Implemented as Appropriate) 05/03/20 1700 Coping/Psychosocial Plan Of Care Reviewed With patient Plan of Care Review Progress progress toward functional goals as expected OUTCOME EVALUATION NOTE: OUTCOME SUMMARY: Pt A&Ox4. VSS on RA. Pt denied pain this shift. Started spironolactone today per MD orders, see SEP. Scheduled meds given. Ind in the room. Pt resting in bed, safety maintained. PLAN MOVING FORWARD: D/C planning INDIVIDUALIZED FALL PREVENTION INTERVENTIONS: Patient-specific fall risk factors per assessment: [current deficits]: IV access, gen weakness Assistance [level of assistance required for transfers and ambulation]: Ind Supervision [direct monitoring required during toileting and ADLs]: Ears on Surveillance [continuous indirect monitoring]: Masimo Patient-specific fall prevention interventions for sensory deficits provided, if applicable: [X] N/A CPG GOAL OUTCOME EVALUATION: Plan of Care - Fidelia Gaxiola RN - 05/03/2020 6:28 AM EDT Problem: Patient Care Overview Goal: Plan of Care Review Outcome: Ongoing (Interventions Implemented as Appropriate) 05/02/20 0535 05/02/202037 Coping/Psychosocial Plan Of Care Reviewed With -- patient Plan of Care Review Progress progress toward functional goals as expected -- OUTCOME EVALUATION NOTE: OUTCOME SUMMARY: A&Ox4 on RA. VS and assessment as documented. Pt c/o leg pain when ambulating. Pt had a criticalWBC 35.5, MD aware. Pt resting in between care. Safety maintained. Will continue to monitor and pageMD with any changes. PLAN MOVING FORWARD: Discharge planing INDIVIDUALIZED FALL PREVENTION INTERVENTIONS: Patient-specific fall risk factors per assessment: [current deficits]: Gen weakness, secondary diagnosis Assistance [level of assistance required for transfers and ambulation]: IND Supervision [direct monitoring required during toileting and ADLs]: IND Surveillance [continuous indirect monitoring]: Call soni in reach, room near unit station, Masimo on, Purposeful rounding Patient-specific fall prevention interventions for sensory deficits provided, if applicable: [X] No CPG GOAL OUTCOME EVALUATION: Plan of Care - Noa Durant RN - 05/02/2020 2:56 PM EDT Problem: Patient Care Overview Goal: Plan of Care Review Outcome: Ongoing (Interventions Implemented as Appropriate) OUTCOME EVALUATION NOTE: OUTCOME SUMMARY: Pt independent in room. No CP or SOB. Pt voiding. Chair in room so pt can sit up in chair. Jaundice.MD at bedside to update pt. Pt did not feel ready today for discharge. Painful feet when dependent due to edema. Will continue to monitor PLAN MOVING FORWARD: Monitor urine output, safety INDIVIDUALIZED FALL PREVENTION INTERVENTIONS: Patient-specific fall risk factors per assessment: [current deficits]: hospital environment Assistance [level of assistance required for transfers and ambulation]: ind Supervision [direct monitoring required during toileting and ADLs]: ind Surveillance [continuous indirect monitoring]: Hourly rounding Patient-specific fall prevention interventions for sensory deficits provided, if applicable: CPG GOAL OUTCOME EVALUATION: Plan of Care - Sole Carpio RN - 05/02/2020 5:39 AM EDT Problem: Patient Care Overview Goal: Plan of Care Review Outcome: Ongoing (Interventions Implemented as Appropriate) 05/02/20 0535 Coping/Psychosocial Plan Of Care Reviewed With patient Plan of Care Review Progress progress toward functional goals as expected OUTCOME EVALUATION NOTE: OUTCOME SUMMARY: Pt resting in bed. Plan of care reviewed with pt. Pt denied pain during shift. Pt had no episodes ofN/V. Pt having increased pitting edema in feet. MD notified. Bilateral legs elevated. Pt BP soft in low 90s- low 100s systolic. MD notified of BP down-trend. Pt asymptomatic and no interventions ordered at this time. Pt sleeping between care. Safety maintained. Call light within reach. Will continue to monitor and notify MD of changes. PLAN MOVING FORWARD: Monitor labs Diuresis Discharge planning INDIVIDUALIZED FALL PREVENTION INTERVENTIONS: Patient-specific fall risk factors per assessment: [current deficits]: Generalized weakness Assistance [level of assistance required for transfers and ambulation]: SBA/IND Supervision [direct monitoring required during toileting and ADLs]: SBA Surveillance [continuous indirect monitoring]: Purposeful rounding; masimo Patient-specific fall prevention interventions for sensory deficits provided, if applicable: CPG GOAL OUTCOME EVALUATION: Plan of Care - Angely Guzman RN - 05/01/2020 5:28 PM EDT Problem: Patient Care Overview Goal: Fall Prevention-Safe Patient Handling Outcome: Ongoing (Interventions Implemented as Appropriate) 05/01/20 0830 05/01/20 1000 Restraint Interventions Safety Promotion/Fall Prevention -- activity supervised;fall prevention program maintained;muscle strengthening facilitated;nonskid shoes/slippers when out of bed;safety round/check completed Positioning Body Position -- independent Daily Care Interventions Self-Care Promotion independence encouraged -- Logan Fall Risk History of Falling 0 -- Secondary Diagnosis 15 -- Ambulatory Aids 0 -- Intravenous Therapy/Heparin/Saline Lock 20 -- Gait/Transferring 10 -- Mental Status 0 -- Score 45 -- OTHER Logan Fall Risk High -- Activity Activity Type activity adjusted per tolerance;activity encouraged;ambulated in room;ambulated to bathroom;ROM, active encouraged -- Activity Assistance Provided independent -- Assistive Device Utilized none -- OUTCOME SUMMARY: Violet had a good day. AAOx4, VSS, Afebrile, Jaundice,Pt denies nausea. Urine ouput adequate, BSactive/+flatus/LBM 05/01loose/soft. Pain well controlled. Lines/Incisions CDI. Pt ambulated Independent in room. POC/Safety/CPG's ongoing. Pt encouraged to call for needs, verbalized understanding. No other complaints at this time, will continue to monitor. PLAN MOVING FORWARD: Encourage ambulation Encourage fluids/nutrition Maintain pain control DC planning INDIVIDUALIZED FALL PREVENTION INTERVENTIONS: Patient-specific fall risk factors per assessment: [current deficits]: IV, pain, generalized weakness, recent procedure Assistance [level of assistance required for transfers and ambulation]: SBA/Independent Supervision [direct monitoring required during toileting and ADLs]: Eyes on Surveillance [continuous indirect monitoring]: Masimo,purposeful rounding, call soni in reach , Bed alarm Patient-specific fall prevention interventions for sensory deficits provided, if applicable: Yes, environmental modifications, lighting, non-skid socks CPG GOAL OUTCOME EVALUATION: Ongoing Goal: Infection Control Outcome: Ongoing (Interventions Implemented as Appropriate) 05/01/20 0830 05/01/20 1000 Safety Interventions Isolation Precautions -- standard precautions maintained Infection Prevention -- environmental surveillance performed Coping Strategies Supportive Measures active listening utilized;positive reinforcement provided;self-care encouraged -- Plan of Care - Sole Carpio RN - 05/01/2020 5:25 AM EDT Problem: Patient Care Overview Goal: Plan of Care Review Outcome: Ongoing (Interventions Implemented as Appropriate) 04/30/20 0416 04/30/20 1950 Coping/Psychosocial Plan Of Care Reviewed With -- patient Plan of Care Review Progress progress toward functional goals as expected -- OUTCOME EVALUATION NOTE: OUTCOME SUMMARY: Pt resting in bed. Plan of care reviewed with pt. Pt had no episodes of N/V overnight and required no zofran. Pt had small clot found in hat following using bathroom. Pt reported having hemorrhoids which have gotten worse. MD notified and no interventions ordered at this time. Pt VSS overnight. Pt sleeping between care. Safety maintained. Will continue to monitor and notify MD of changes. PLAN MOVING FORWARD: Monitor labs Discharge planning INDIVIDUALIZED FALL PREVENTION INTERVENTIONS: Patient-specific fall risk factors per assessment: [current deficits]: Generalized weakness Assistance [level of assistance required for transfers and ambulation]: SBA/IND Supervision [direct monitoring required during toileting and ADLs]: SBA Surveillance [continuous indirect monitoring]: Purposeful rounding; sirishao Patient-specific fall prevention interventions for sensory deficits provided, if applicable: CPG GOAL OUTCOME EVALUATION: Plan of Care - Iraj Claros RN - 04/30/2020 2:49 PM EDT Problem: Patient Care Overview Goal: Plan of Care Review Outcome: Ongoing (Interventions Implemented as Appropriate) 04/30/206 04/30/20 1446 Coping/Psychosocial Plan Of Care Reviewed With -- patient Plan of Care Review Progress progress toward functional goals as expected -- OUTCOME EVALUATION NOTE: OUTCOME SUMMARY: Patient A&Ox4, VSS, and denies any pain. Reported nausea this morning, given PRN Zofran with good relief. visited this afternoon. No other changes, will continue to monitor. PLAN MOVING FORWARD: Continue to monitor labs, VS, transfer pending transplant decision INDIVIDUALIZED FALL PREVENTION INTERVENTIONS: Patient-specific fall risk factors per assessment: [current deficits]: IV sites, generalized weakness Assistance [level of assistance required for transfers and ambulation]: IND Supervision [direct monitoring required during toileting and ADLs]: IND Surveillance [continuous indirect monitoring]: Masimo, purposeful rounding Plan of Care - Sole Carpio RN - 04/30/2020 4:29 AM EDT Problem: Patient Care Overview Goal: Plan of Care Review Outcome: Ongoing (Interventions Implemented as Appropriate) 04/30/20 0416 Coping/Psychosocial Plan Of Care Reviewed With patient Plan of Care Review Progress progress toward functional goals as expected OUTCOME EVALUATION NOTE: OUTCOME SUMMARY: Pt resting in bed. Plan of care reviewed with pt. Pt systolic bp in mid 90s- low 100s during shift. Pt denied pain during shift. Pt had one episode of nausea without vomiting during shift. PRN IV zofran given with good effect. Emotional support provided throughout shift. Pt sleeping between care. Safety maintained. Call light within reach. Will continue to monitor and notify MD of changes. PLAN MOVING FORWARD: Monitor labs Diuresis Emotional support INDIVIDUALIZED FALL PREVENTION INTERVENTIONS: Patient-specific fall risk factors per assessment: [current deficits]: Generalized weakness Assistance [level of assistance required for transfers and ambulation]: IND/SBA Supervision [direct monitoring required during toileting and ADLs]: SBA Surveillance [continuous indirect monitoring]: Purposeful rounding; masimo Patient-specific fall prevention interventions for sensory deficits provided, if applicable: CPG GOAL OUTCOME EVALUATION: Plan of Care - Gema West RN - 04/29/2020 3:22 PM EDT Problem: Patient Care Overview Goal: Plan of Care Review Outcome: Ongoing (Interventions Implemented as Appropriate) 04/29/20 0307 04/29/20 1400 Coping/Psychosocial Plan Of Care Reviewed With -- patient Plan of Care Review Progress progress toward functional goals as expected -- OUTCOME EVALUATION NOTE: OUTCOME SUMMARY: Pt alert/oriented x4. Tachy to low 100's, VS otherwise stable on RA. Does not endorse pain, does complain of mild discomfort in abdomen. Discussed prognosis and plan with interdisciplinary team. Frequently crying in room, emotional support provided. No acute events. Will continue to monitor. PLAN MOVING FORWARD: Monitor labs, diurese INDIVIDUALIZED FALL PREVENTION INTERVENTIONS: Patient-specific fall risk factors per assessment: [current deficits]: Gen weakness Assistance [level of assistance required for transfers and ambulation]: IND Supervision [direct monitoring required during toileting and ADLs]: Ears on Surveillance [continuous indirect monitoring]: Purposeful rounding, call soni in reach, bed alarm on Patient-specific fall prevention interventions for sensory deficits provided, if applicable: [X] Yes CPG GOAL OUTCOME EVALUATION: Plan of Care - Lulu Brody RN - 04/29/2020 3:13 AM EDT Problem: Patient Care Overview Goal: Plan of Care Review Outcome: Ongoing (Interventions Implemented as Appropriate) 04/28/20 2155 04/29/20 0307 Coping/Psychosocial Plan Of Care Reviewed With patient -- Plan of Care Review Progress -- progress toward functional goals as expected OUTCOME EVALUATION NOTE: OUTCOME SUMMARY: ?? Pt A&Ox4. VSS on 2L NC, except for BP 83/46 at 0300, notified.Pt Given prn robitussin for cough once this shift, see MAR. Pt is independent in the room. Scheduled meds given, see MAR. Pt restingin bed, safety maintained. ?? PLAN MOVING FORWARD: D/C planning ?? INDIVIDUALIZED FALL PREVENTION INTERVENTIONS: ?? Patient-specific fall risk factors per assessment: [current deficits]: IV access, gen weakness ?? Assistance [level of assistance required for transfers and ambulation]: Ind ?? Supervision [direct monitoring required during toileting and ADLs]: Ears on ?? Surveillance [continuous indirect monitoring]: Masimo ?? Patient-specific fall prevention interventions for sensory deficits provided, if applicable: [X] N/A ? CPG GOAL OUTCOME EVALUATION: Plan of Care - Zahida Rice RN - 04/28/2020 7:32 PM EDT Problem: Patient Care Overview Goal: Plan of Care Review Outcome: Ongoing (Interventions Implemented as Appropriate) 04/28/20 0301 04/28/20 1237 Coping/Psychosocial Plan Of Care Reviewed With -- patient Plan of Care Review Progress progress toward functional goals as expected -- OUTCOME EVALUATION NOTE: OUTCOME SUMMARY: AxOx4. VSS on room air. No c/o pain. 3100 removed via paracentesis this morning in IR. Total of 50g of albumin administered upon return to unit. 4mg Zofran given with some effect when pt reported nausea. About 3 hours later, pt experienced 200ml of brown emesis.Order for ODT Zofran ordered and given. 1 BM today. Voiding small amount-urine sample sent. Ambulating to bathroom independently. Poor PO intake, tolerating about 25% of meals. PRN cough syrup given per pt request. Will continue to monitor and page with any changes. PLAN MOVING FORWARD: Urine samples when pt able to void. Encourage PO intake. Monitor weights. D/c planning. INDIVIDUALIZED FALL PREVENTION INTERVENTIONS: Patient-specific fall risk factors per assessment: [current deficits]: IV tubing (at times). Assistance [level of assistance required for transfers and ambulation]: IND Supervision [direct monitoring required during toileting and ADLs]: IND Surveillance [continuous indirect monitoring]: Hourly rounding, room near unit station, call soni within reach. Patient-specific fall prevention interventions for sensory deficits provided, if applicable: [X] N/A CPG GOAL OUTCOME EVALUATION: Initial Assessments - Cooper English RN - 04/28/2020 4:36 PM EDT Office of Care Management Initial Assessment Cooper English RN reviewed record and discussed patient with Care Team. Source of Information: patient Introduced self/reviewed role; services accepted. Reason for Hospitalization: Reason for Admission as Stated by Patient: swelling, not feeling well Last COVID test date and time: 04-26-2020@22:07 No past medical history on file. 39 y.o.??female??w/ PMH of??alcohol use??disorder,??likely alcoholic??cirrhosis, medically managed microprolactinoma??and??multiple recent admission. Originally she requ ired??admission for hemorrhagic shock secondary to a bleeding pre-pyloric ulcer s/p EGD clipping andIR embolization??who??represented??in transfer??last week with fever, leukocytosis and jaundice??nowbeing transferred after f/u lab work showed worsening leukocytosis. Hospitalizations Within the Past 30 Days: per patient has had two hospital stays this month Anticipated Length Of Stay (If known): Expected Length of Hospitalization: 3 Current Decision-Making Capacity: yes Advance Care Planning: none on file here Current Coping/Education/Information Needs: patient appears to understand hospital course Current Functional Ability: up ad tracy Functional Status Prior to Admission: normally independent at home Home Environment: 2 story home, can stay on first level if needed Social & Family Supports/Community Resources: , lives with , Nawaf and 4 year old son, Ty Behavioral Health History: None listed Substance Use/Abuse: DAST 10 In the past year have you used an illegal drug or used a prescription medication for non-medical reaons?: No In the past year have you used opioids (oxycodone, Vicodin, heroin, fentanyl, buprenorphine, methadone, etc.) for non-medical reasons?: No AUDIT In the past year have you had 4 or more drinks a day containing alcohol?: Yes How many drinks containing alcohol do you have on a typical day when you are drinking?: 1-->3 or 4 How often on one occasion have you had 4 or more drinks a day containing alcohol?: 4-->Daily or almost daily How often during the last year have you found that you were not able to stop drinking once you had started?: 3->Weekly How often during the last year have you failed to do what was normally expected from you because of drinking?: 0-->Never How often during the last year have you been unable to remember what happened the night before because you had been drinking?: 0-->Never How often during the last year have you needed an alcoholic drink first thing in the morning to get yourself going after a night of heavy drinking?: 0-->Never How often during the last year have you had a feeling of guilt or remorse after drinking?: 0-->Never Have you or someone else been injured as a result of your drinking?: 0-->No Has a relative, friend, doctor, or another health professional expressed concern about your drinkingor suggested you cut down?: 0-->No Audit Score (Female): 8 Other Pertinent/Service Specific Information: none Health/Prescription Coverage: Primary Insurance: Housekeep [facility] Secondary Insurance: N/A Prescription Coverage: yes Preferred [facility]acy: [facility] [place] Other: none Primary Care Provider: Julieta Odell, [employer] [phone] Patient/Caregiver Goals of Treatment: feel better, return home with family Potential Needs for Transition of Care: Rehab/SNF: no Home Health: no DME: no Dialysis: no Community Resources: family Transportation: family Other: none Anticipated Barriers to Discharge/Special Considerations: monitor labs, wean off oxygen Assessment: Patient is alert and oriented and able to make decisions. Plan: discharge to home tomorrow with family A member of the Care Management team will continue to monitor progress, follow for continuity of care and assist with transition of care planning. Cooper English RN CM Pager: [phone] Plan of Care - Lulu Brody RN - 04/28/2020 3:06 AM EDT Problem: Patient Care Overview Goal: Plan of Care Review Outcome: Ongoing (Interventions Implemented as Appropriate) 04/27/20 2130 04/28/20 0301 Coping/Psychosocial Plan Of Care Reviewed With patient -- Plan of Care Review Progress -- progress toward functional goals as expected OUTCOME EVALUATION NOTE: OUTCOME SUMMARY: Pt A&Ox4. VSS on 2L NC. Pt c/o 10/08 pain once this shift, given prn tylenol with good effect. Ptis independent in the room. Scheduled meds given, see MAR. Pt resting in bed, safety maintained. PLAN MOVING FORWARD: Paracentesis INDIVIDUALIZED FALL PREVENTION INTERVENTIONS: Patient-specific fall risk factors per assessment: [current deficits]: IV access, gen weakness Assistance [level of assistance required for transfers and ambulation]: Ind Supervision [direct monitoring required during toileting and ADLs]: Ears on Surveillance [continuous indirect monitoring]: Masimo Patient-specific fall prevention interventions for sensory deficits provided, if applicable: [X] N/A CPG GOAL OUTCOME EVALUATION: Patient Refusal of Care - Lulu Brody RN - 04/27/2020 10:29 PM EDT Patient refusing to wear SCDs. The reason pt gave for this refusal was that they are uncomfortable to sleep with. Nursing actions taken during this shift to address patient???s refusal included Education about importance of care Plan to address patient???s refusal include Modify plan of care to encourage ambulation Lulu Brody RN Plan of Care - Fay Ellison RN - 04/27/2020 4:43 PM EDT Problem: Patient Care Overview Goal: Plan of Care Review Outcome: Ongoing (Interventions Implemented as Appropriate) OUTCOME EVALUATION NOTE: OUTCOME SUMMARY: Patient A/OX4, BP soft but asymptomatic. Abdominal pain and distention continues, hurts more with coughing. PRN robitussin and tylenol given. Order for paracentesis placed. Diet advanced, tolerating well. Patient up to BR independently. Requiring intermittent 2L NC. Resting in between care. No further events occurred, will continue to monitor. PLAN MOVING FORWARD: Paracentesis, pain control INDIVIDUALIZED FALL PREVENTION INTERVENTIONS: Patient-specific fall risk factors per assessment: [current deficits]: Med falls risk Assistance [level of assistance required for transfers and ambulation]: IND Supervision [direct monitoring required during toileting and ADLs]: IND Surveillance [continuous indirect monitoring]: Masimo, room near nursing station, call soni within reach, purposeful rounding Patient-specific fall prevention interventions for sensory deficits provided, if applicable: [X] N/A CPG GOAL OUTCOME EVALUATION: Plan of Care - Kylie Reese RN - 04/27/2020 12:59 AM EDT Problem: Patient Care Overview Goal: Plan of Care Review Outcome: Ongoing (Interventions Implemented as Appropriate) 04/26/20 0607 04/26/20 2100 Coping/Psychosocial Plan Of Care Reviewed With -- patient Plan of Care Review Progress progress towards functional goals is fair -- OUTCOME EVALUATION NOTE: OUTCOME SUMMARY: Patient awake, alert and oriented. BP remains soft and HR tachy, PO down to 87- 88%, team aware and oxygen placed via nasal canula.(see vitals flow sheet). She denies pain but, c/o tightness due to swelling in her abdomen and lower extremities. She has been NPO since midnight for possible IR procedure. Assessment as filed, makes needs known, safety maintained PLAN MOVING FORWARD: Fluid volume management, monitor vitals, I & O's, possible paracentesis today via IR INDIVIDUALIZED FALL PREVENTION INTERVENTIONS: Patient-specific fall risk factors per assessment: [current deficits]: Edema, lines and devices Assistance [level of assistance required for transfers and ambulation]: indep/sba Supervision [direct monitoring required during toileting and ADLs]: Eyes on Surveillance [continuous indirect monitoring]: Intentional rounding, call light in reach, bed near nurses station Patient-specific fall prevention interventions for sensory deficits provided, if applicable: [X] No CPG GOAL OUTCOME EVALUATION: Patient Refusal of Care - Kylie Reese RN - 04/26/2020 6:56 AM EDT Patient refusing to have bed monitor enabled. The reason pt gave for this refusal was not needed. Nursing actions taken during this shift to address patient???s refusal included Education about importance of care Plan to address patient???s refusal include Modify plan of care to patient will call for OOB needs Plan of Care - Kylie Reese RN - 04/26/2020 6:13 AM EDT Problem: Patient Care Overview Goal: Plan of Care Review Outcome: Ongoing (Interventions Implemented as Appropriate) 04/26/20 0607 Coping/Psychosocial Plan Of Care Reviewed With patient Plan of Care Review Progress progress towards functional goals is fair OUTCOME EVALUATION NOTE: OUTCOME SUMMARY: Patient arrived via ambulance to room 142 @ 0450. She is awake, alert and oriented. VSS, afeb. Jaundiced in color (chronic). Orders received, Patient oriented to surroundings (d/c from same room 2 daysago). abd down to feet edematous. Patient denies pain except for tightness in LE d/t swelling. Assess ment as filed, safety maintained PLAN MOVING FORWARD: Monitor labs and vitals, plan per primary team INDIVIDUALIZED FALL PREVENTION INTERVENTIONS: Patient-specific fall risk factors per assessment: [current deficits]: Edema in lower extremities, lines and devices Assistance [level of assistance required for transfers and ambulation]: SBA Supervision [direct monitoring required during toileting and ADLs]: Eyes on Surveillance [continuous indirect monitoring]: Intentional rounding, call light in reach, bed near nurses station Patient-specific fall prevention interventions for sensory deficits provided, if applicable: [X] No CPG GOAL OUTCOME EVALUATION: documented in this encounter Plan of Treatment Not on filedocumented as of this encounter Procedures Procedure Name Priority Date/Time Associated Comments Diagnosis XR CHEST ONE VIEW Routine 05/06/2020 1:45 PM Resu lts for this EDT procedure are i n the results section. IR PARACENTESIS Routine 05/06/2020 12:19 Results for this PM EDT procedure are i n the results section. COVID-19 PCR Routine 05/06/2020 11:23 Results for this AM EDT procedure are i n the results section. HEMOGRAM Routine 05/06/2020 5:49 AM Results f or this EDT procedure are i n the results section. DIFFERENTIAL, AUTOMATED Routine 05/06/2020 5:49 AM Results for this EDT procedure are i n the results section. HC PARTIAL Routine 05/06/2020 5:49 AM Results f or this THROMBOPLASTIN TIME EDT procedur e are in the results section. HC PROTHROMBIN TIME Routine 05/06/2020 5:49 AM Re sults for this EDT procedure are i n the results section. HC CBC,PLT & AUTO DIFF Routine 05/06/2020 5:49 AM EDT HC PHOSPHORUS, SERUM Routine 05/06/2020 5:49 AM R esults for this EDT procedure are i n the results section. HC MAGNESIUM, SERUM Routine 05/06/2020 5:49 AM Re sults for this EDT procedure are i n the results section. HC VENIPUNCTURE Routine 05/06/2020 5:49 AM Result s for this EDT procedure are i n the results section. HC SODIUM, URINE Routine 05/05/2020 3:10 PM Resul ts for this EDT procedure are i n the results section. HC OSMOLALITY URINE Routine 05/05/2020 3:10 PM Re sults for this EDT procedure are i n the results section. HC CREATININE - NON Routine 05/05/2020 3:10 PM Re sults for this BLOOD EDT procedure are i n the results section. HEMOGRAM Routine 05/05/2020 4:41 AM Results f or this EDT procedure are i n the results section. DIFFERENTIAL, AUTOMATED Routine 05/05/2020 4:41 AM Results for this EDT procedure are i n the results section. HC PARTIAL Routine 05/05/2020 4:41 AM Results f or this THROMBOPLASTIN TIME EDT procedur e are in the results section. HC PROTHROMBIN TIME Routine 05/05/2020 4:41 AM Re sults for this EDT procedure are i n the results section. HC CBC,PLT & AUTO DIFF Routine 05/05/2020 4:41 AM EDT HC PHOSPHORUS, SERUM Routine 05/05/2020 4:41 AM R esults for this EDT procedure are i n the results section. HC MAGNESIUM, SERUM Routine 05/05/2020 4:41 AM Re sults for this EDT procedure are i n the results section. HC VENIPUNCTURE Routine 05/05/2020 4:41 AM Result s for this EDT procedure are i n the results section. HEMOGRAM Routine 05/04/2020 3:18 AM Results f or this EDT procedure are i n the results section. DIFFERENTIAL, AUTOMATED Routine 05/04/2020 3:18 AM Results for this EDT procedure are i n the results section. HC PARTIAL Routine 05/04/2020 3:18 AM Results f or this THROMBOPLASTIN TIME EDT procedur e are in the results section. HC PROTHROMBIN TIME Routine 05/04/2020 3:18 AM Re sults for this EDT procedure are i n the results section. HC CBC,PLT & AUTO DIFF Routine 05/04/2020 3:18 AM EDT HC PHOSPHORUS, SERUM Routine 05/04/2020 3:18 AM R esults for this EDT procedure are i n the results section. HC MAGNESIUM, SERUM Routine 05/04/2020 3:18 AM Re sults for this EDT procedure are i n the results section. HC VENIPUNCTURE Routine 05/04/2020 3:18 AM Result s for this EDT procedure are i n the results section. HEMOGRAM Routine 05/03/2020 5:11 AM Results f or this EDT procedure are i n the results section. DIFFERENTIAL, AUTOMATED Routine 05/03/2020 5:11 AM Results for this EDT procedure are i n the results section. HC PARTIAL Routine 05/03/2020 5:11 AM Results f or this THROMBOPLASTIN TIME EDT procedur e are in the results section. HC PROTHROMBIN TIME Routine 05/03/2020 5:11 AM Re sults for this EDT procedure are i n the results section. HC CBC,PLT & AUTO DIFF Routine 05/03/2020 5:11 AM EDT HC PHOSPHORUS, SERUM Routine 05/03/2020 5:11 AM R esults for this EDT procedure are i n the results section. HC MAGNESIUM, SERUM Routine 05/03/2020 5:11 AM Re sults for this EDT procedure are i n the results section. HC VENIPUNCTURE Routine 05/03/2020 5:11 AM Result s for this EDT procedure are i n the results section. HEMOGRAM Routine 05/02/2020 6:04 AM Results f or this EDT procedure are i n the results section. DIFFERENTIAL, AUTOMATED Routine 05/02/2020 6:04 AM Results for this EDT procedure are i n the results section. HC PARTIAL Routine 05/02/2020 6:04 AM Results f or this THROMBOPLASTIN TIME EDT procedur e are in the results section. HC PROTHROMBIN TIME Routine 05/02/2020 6:04 AM Re sults for this EDT procedure are i n the results section. HC CBC,PLT & AUTO DIFF Routine 05/02/2020 6:04 AM EDT HC PHOSPHORUS, SERUM Routine 05/02/2020 6:04 AM R esults for this EDT procedure are i n the results section. HC MAGNESIUM, SERUM Routine 05/02/2020 6:04 AM Re sults for this EDT procedure are i n the results section. HC VENIPUNCTURE Routine 05/02/2020 6:04 AM Result s for this EDT procedure are i n the results section. BILIRUBIN, DIRECT Routine 05/01/2020 5:11 AM Resu lts for this EDT procedure are i n the results section. HEMOGRAM Routine 05/01/2020 5:11 AM Results f or this EDT procedure are i n the results section. DIFFERENTIAL, AUTOMATED Routine 05/01/2020 5:11 AM Results for this EDT procedure are i n the results section. HC PARTIAL Routine 05/01/2020 5:11 AM Results f or this THROMBOPLASTIN TIME EDT procedur e are in the results section. HC PROTHROMBIN TIME Routine 05/01/2020 5:11 AM Re sults for this EDT procedure are i n the results section. HC VENIPUNCTURE Routine 05/01/2020 5:11 AM EDT HC PHOSPHORUS, SERUM Routine 05/01/2020 5:11 AM R esults for this EDT procedure are i n the results section. HC MAGNESIUM, SERUM Routine 05/01/2020 5:11 AM Re sults for this EDT procedure are i n the results section. COMPREHENSIVE METABOLIC Routine 05/01/2020 5:11 AM Results for this PANEL (NON-FASTING) EDT procedur e are in the results section. SCAN, PERIPHERAL BLOOD Routine 04/30/2020 10:24 R esults for this AM EDT procedure are i n the results section. HEMOGRAM Routine 04/30/2020 10:24 Results for this AM EDT procedure are i n the results section. DIFFERENTIAL, AUTOMATED Routine 04/30/2020 10:24 Results for this AM EDT procedure are i n the results section. HC PARTIAL Routine 04/30/2020 10:24 Results for this THROMBOPLASTIN TIME AM EDT procedur e are in the results section. HC PROTHROMBIN TIME Routine 04/30/2020 10:24 Resu lts for this AM EDT procedure are i n the results section. HC CBC,PLT & AUTO DIFF Routine 04/30/2020 10:24 AM EDT COMPREHENSIVE METABOLIC Routine 04/30/2020 10:24 Results for this PANEL (NON-FASTING) AM EDT procedur e are in the results section. CMP W/FASTING GLUCOSE Routine 04/29/2020 3:58 AM Results for this EDT procedure are i n the results section. HEMOGRAM Routine 04/29/2020 3:58 AM Results f or this EDT procedure are i n the results section. DIFFERENTIAL, AUTOMATED Routine 04/29/2020 3:58 AM Results for this EDT procedure are i n the results section. HC PARTIAL Routine 04/29/2020 3:58 AM Results f or this THROMBOPLASTIN TIME EDT procedur e are in the results section. HC PROTHROMBIN TIME Routine 04/29/2020 3:58 AM Re sults for this EDT procedure are i n the results section. HC VENIPUNCTURE Routine 04/29/2020 3:58 AM EDT URINALYSIS MICROSCOPIC Routine 04/28/2020 6:17 PM Results for this EXAM EDT procedure are i n the results section. HC SODIUM, URINE Routine 04/28/2020 6:17 PM Resul ts for this EDT procedure are i n the results section. URINALYSIS WITH REFLEX Routine 04/28/2020 6:17 PM Results for this CULTURE EDT procedure are i n the results section. IR PARACENTESIS Routine 04/28/2020 9:15 AM Result s for this EDT procedure are i n the results section. ANAEROBIC CULTURE Routine 04/28/2020 9:13 AM Resu lts for this EDT procedure are i n the results section. HC BODY FLUID CULTURE Routine 04/28/2020 9:13 AM EDT BODY FLUID CULTURE, Routine 04/28/2020 9:13 AM Re sults for this AEROBIC EDT procedure are i n the results section. HC BODY FLUID CELL CT Routine 04/28/2020 9:13 AM Results for this W/DIFF EDT procedure are i n the results section. CMP W/FASTING GLUCOSE Routine 04/28/2020 5:21 AM Results for this EDT procedure are i n the results section. SCAN, PERIPHERAL BLOOD Routine 04/28/2020 5:21 AM Results for this EDT procedure are i n the results section. HEMOGRAM Routine 04/28/2020 5:21 AM Results f or this EDT procedure are i n the results section. DIFFERENTIAL, AUTOMATED Routine 04/28/2020 5:21 AM Results for this EDT procedure are i n the results section. HC PARTIAL Routine 04/28/2020 5:21 AM Results f or this THROMBOPLASTIN TIME EDT procedur e are in the results section. HC PROTHROMBIN TIME Routine 04/28/2020 5:21 AM Re sults for this EDT procedure are i n the results section. HC CBC,PLT & AUTO DIFF Routine 04/28/2020 5:21 AM EDT CMP W/FASTING GLUCOSE Routine 04/27/2020 4:35 AM Results for this EDT procedure are i n the results section. HEMOGRAM Routine 04/27/2020 4:35 AM Results f or this EDT procedure are i n the results section. DIFFERENTIAL, AUTOMATED Routine 04/27/2020 4:35 AM Results for this EDT procedure are i n the results section. HC PARTIAL Routine 04/27/2020 4:35 AM Results f or this THROMBOPLASTIN TIME EDT procedur e are in the results section. HC PROTHROMBIN TIME Routine 04/27/2020 4:35 AM Re sults for this EDT procedure are i n the results section. HC VENIPUNCTURE Routine 04/27/2020 4:35 AM EDT RAPID COVID-19 PCR Routine 04/26/2020 6:27 PM Res ults for this ([facility]) EDT procedure are in the results section. XR CHEST PA AND LATERAL Routine 04/26/2020 2:38 PM Results for this EDT procedure are i n the results section. URINALYSIS MICROSCOPIC Routine 04/26/2020 7:02 AM Results for this EXAM EDT procedure are i n the results section. URINALYSIS WITH REFLEX Routine 04/26/2020 7:02 AM Results for this CULTURE EDT procedure are i n the results section. HEMOGRAM Routine 04/26/2020 6:35 AM Results f or this EDT procedure are i n the results section. DIFFERENTIAL, AUTOMATED Routine 04/26/2020 6:35 AM Results for this EDT procedure are i n the results section. HC BLOOD CULTURE- STAT 04/26/2020 6:35 AM Resu lts for this EDT procedure are i n the results section. HC PARTIAL Routine 04/26/2020 6:35 AM Results f or this THROMBOPLASTIN TIME EDT procedur e are in the results section. HC PROTHROMBIN TIME Routine 04/26/2020 6:35 AM Re sults for this EDT procedure are i n the results section. HC CBC,PLT & AUTO DIFF Routine 04/26/2020 6:35 AM EDT HC PHOSPHORUS, SERUM Routine 04/26/2020 6:35 AM R esults for this EDT procedure are i n the results section. HC MAGNESIUM, SERUM Routine 04/26/2020 6:35 AM Re sults for this EDT procedure are i n the results section. HEPATIC FUNCTION PANEL Routine 04/26/2020 6:35 AM Results for this EDT procedure are i n the results section. BASIC METABOLIC PANEL Routine 04/26/2020 6:35 AM Results for this (NON-FASTING) EDT procedure are in the results section. HC VENIPUNCTURE STAT 04/26/2020 6:24 AM Result s for this EDT procedure are i n the results section. FILM LIBRARY STORAGE Routine 04/25/2020 12:00 Res ults for this ONLY DX CHEST AM EDT procedure are in the results section. documented in this encounter Results XR Chest One View (05/06/2020 1:45 PM EDT) Anatomical Region Laterality Modality Chest N/A Digital Radiography Specimen (Source) Anatomical Location Collection Method / Collectio n Time Received Time / Laterality Volume Impressions 05/06/2020 2:41 PM EDT Diffuse patchy pulmonary opacities, with apical and peripheral sparing. Differential considerations pulmonary ed betzaida, hemorrhage, and/or multifocal infection. I have personally reviewed the image(s) and the resident's interpretation and agree with the findings, Mary Fowler MD at 05/06/2020 2:41 PM Thank you for letting us participate in the care of this patient. For questions regarding this report, please contact terence number below. ? Narrative 05/06/2020 2:41 PM EDT EXAMINATION: XR CHEST ONE VIEW CLINICAL HISTORY: oxygen requirement, fu lminant hepatic failure, concern for effusion TECHNIQUE: 1 view of the chest COMPARISON: 04/26/2020 chest radiograph. FINDINGS: Diffuse patchy pulmonary opacities bilat erally, with relative sparing of the apices and lung periphery. No pneumothor ax or pleural effusion. Cardiomediastinal silhouette is within n ormal limits. No acute osseous finding. A gastroduodenal artery embolization coi l is noted in the upper abdomen. Procedure Note Mary Fowler MD - 05/06/2020Formatt ing of this note might be different from the original. EXAMINATION: XR CHEST ONE VIEW CLINICAL HISTORY: oxygen requirement, fu lminant hepatic failure, concern for effusion TECHNIQUE: 1 view of the chest COMPARISON: 04/26/2020 chest radiograph. FINDINGS: Diffuse patchy pulmonary opacities bilat erally, with relative sparing of the apices and lung periphery. No pneumothor ax or pleural effusion. Cardiomediastinal silhouette is within n ormal limits. No acute osseous finding. A gastroduodenal artery embolization coi l is noted in the upper abdomen. IMPRESSION Diffuse patchy pulmonary opacities, with apical and peripheral sparing. Differential considerations pulmonary ed betzaida, hemorrhage, and/or multifocal infection. I have personally reviewed the image(s) and the resident's interpretation and agree with the findings, Mary Fowler MD at 05/06/2020 2:41 PM Thank you for letting us participate in the care of this patient. For questions regarding this report, please contact didi andre number below. Carlitos Taveras MD IMG DX ORDERABLES IR Paracentesis (05/06/2020 12:19 PM EDT) Anatomical Region Laterality Modality Abdomen X-Ray Angiography Specimen (Source) Anatomical Location Collection Method / Collectio n Time Received Time / Laterality Volume Narrative 05/06/2020 2:30 PM EDT INTERVENTIONAL RADIOLOGY PROCEDURE NOTE Procedure: Sonographically Guided Parace ntesis Indication for Procedure: From Dr. Erick garcia's note, Violet Cowan is a 39 y.o. female with EtOH??cirrhosis (n ewly dx, never bx-confirmed) adm 04/26 with persistent leukocytosis, worse naseem peripheral edema and ascites. Recent admission 04/11-04/17 in hemorrhagi c shock 2/ spurting gastric ulcer s/p clipping followed by GDA embolizatio n (04/11). 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 Discussed transfer with [facility] for expedited transp lant eval and exceptions pathway who recommended outpatient eval. Started on prednisolone 04/30 for worsening hyperbilirubinemia??w/ some im provement in her T bili.??Lille at day 4 promising.??Attempted diuresis for ascites and leg edema w/ development of??oliguric??BRIA.??Suspect this is related to intravascular depletion / pre-renal rather than HRS. Last LVP was 04/28 for 2.8L. ??No interva l imaging. ??Dr. Taveras's team feels ascites has recurred based on phys ical exam. ??If present, team would like limit of 4L. Informed Consent: After discussing risks (including infection, trauma / damage to surrounding structures, hemorr shalom, non-success, amongst others), and benefits of the procedure, the patient consented to the procedure. Monitoring and Sedation Details: The IR nurse was present continuously monitoring ??pulse, pressure, and oxygen saturation. No systemic sedation was utilized. Procedure Events and Technique: A standard time-out was conducted just b efore the start of the procedure to verify all fish aspects; including the correct patient and planned procedure, procedure location, informed consent, and all relevant critical information, all of which were correct. The patient was positioned supine on the procedure table. ??The right flank was cleaned and prepped in typical steri le fashion; maximal sterile barrier technique was used throughout. ? ? Sonographic evaluation of the abdomen re vealed a safe window for paracentesis in the right lower quadrant quadrant. ??Under real-time sonographic guidance, a 21 gauge needle was advanced into the peritoneal space with spontaneous return of thin, s erous appearing fluid. Over a 0.018 wire, a 4 Fr dilator was advanced. The 0.018 wire was exchanged for a 0.035 guide wire. A 6 Fr drainage cath eter was then placed. The catheter was connected to vacuum drainage. ??Once drainage ceased, the catheter was removed. ??A sterile dressing was applie d. ?? Medications: 1% Lidocaine <10 cc subcuta neous. Contrast: None. Fluoroscopic Time: None. Estimated Blood Loss: <5 cc. Complications: ??No immediate. Findings / Impression: 1. Small intra-peritoneal ascites by son ographic evaluation 2. US-guided paracentesis with 1910 mL c lear, serous ascites removed. Resident/Fellow: None. Attending: Dr. Carlitos Steve. I, Dr. Steve, was present throughout th e procedure. I was present during the intraservice time as documented by raissa campoverde IR Nurse. ?? Carlitos Taveras MD [facility] [place] [place] IR ORDERABLES COVID-19 PCR (05/06/2020 11:23 AM EDT) [facility] Method Time Signature SARS-CoV-2 Not Detected Not Detected [facility] Comment: This result should be interpreted in com bination with the clinical observations, patient history and epidem iological information in making a final diagnosis. For testing of asymptomatic i ndividuals, assay performance characteristics and clinical utility hav e not been evaluated. Testing for SARS-CoV-2 (Severe acute respiratory syn drome coronavirus 2, formerly known as 2019 novel coronavirus or 2019-nCoV) to aid in the diagnosis of COVID-19 is performed using the [employer] RealTime SARS -CoV-2 Assay as authorized by the FDA Emergency Use Authorization (EUA). This EUA assay is intended for In-vitro Diagnostic (IVD) use with respiratory sp ecimens such as nasopharyngeal swabs collected from individuals during the ac [place] phase of infection. This assay is performed based on the instructions for use provided by [employer] and additional guidance provided by CDC and FDA. Testing is performed in the [facility] Laboratory within the Department of Pathology and Laboratory Medicine at [facility], certified under the Clinical Laboratory Improvement Amendments of 1988 (CLIA), 42 U.S.C. 263a, to perform high complexi ty tests. Assay performance has been verified according to clinical laborator y regulatory requirements for use with specimens collected from individuals sita pected of COVID-19. Test results are provided above. A result of ? Not Detected? indicates that the viral RNA target is not present above the limit of detect ion, but does not preclude SARS-CoV-2 infection. False negative results may oc cur if a specimen is improperly collected, transported or handled; if am plification inhibitors are present; or if inadequate numbers of viral particles are present in the specimen. When a diagnostic test is negative, the possibi lity of a false negative result should be considered in the context of a patien t? s recent exposures and the presence of clinical signs and symptoms consisten t with COVID-19. A result of ? Detected? indicates that RNA from SARS-CoV-2 was d etected and the patient is infected. As required or requested by public health [facility], positive specimens may be sent for additional testing. Positive an d negative predictive values for this test are highly dependent on disease pre valence. A result of ? Invalid? indicates that neither the viral RNA tar gets nor the internal control target was detected. An invalid result suggests the presence of inhibitors. Recollection and re-testing is recommend ed in the case of an invalid result. CDC COVID-19 criteria for testing on hum an specimens and clinical management guidance information are available at th e CDC Coronavirus Disease 2019 (COVID-19) webpage under ? Information for Healthcare Professionals? (https://www.cdc.gov/coronavirus/2019-nc ov/hcp/index.html) Additional information about this and ot her EUA tests can be found in provider and patient fact sheets at the following FDA website: https://www.fda.gov/medical-devices/cykidmravza-vjkvuxy-2042-vjrkc-23-mwlgtlyxz- nzo-zdpdvzizqgjqds-lsfamlc-devices/toxzd-frjwxmefaas-upoy SARS-Cov-2 RNA Source [employer] [facility] Specimen (Source) Anatomical Collection Method Collection Time Re ceived Time Location / / Volume Laterality Nasopharyngeal swab 05/06/2020 11:23 10/0 12/2019 (specimen) AM EDT 4:04 PM EDT Comment: Symptoms->Surveillance Resulting Agency Comment Spec In Lab Carlitos Taveras MD MICROBIOLOGY - GENERAL ORDER MARK Performing Organization Address City/State/[place] [address] (ABNORMAL) Differential, Automated (05/06/2020 5:49 AM EDT) [facility] Method Time Signature Neutrophils % 90.6 % [facility] Neutr Abs (ANC) 37.58 (H) 1.70 - [facility] 6.10 [facility] x10(3)/[facility] LABORATORY Lymphocytes % 3.3 % [facility] Lymphocytes Abs 1.4 0.9 - 3.2 [facility] x10(3)/[facility] LABORATORY Monocytes % 4.7 % [facility] Monocyte Abs 2.0 (H) 0.3 - 0.9 [facility] x10(3)/[facility] LABORATORY Eosinophils % 0.1 % [facility] Eosinophils Abs 0.0 0.0 - 0.4 [facility] x10(3)/[facility] LABORATORY Basophils % 0.2 % [facility] Basophils Abs 0.1 0.0 - 0.1 [facility] x10(3)/[facility] LABORATORY Immature Gran % 1.10 % [facility] Comment: Immature granulocytes(IG's)percentage an d absolute count will include metamyelocytes, myelocytes, and promyelo cytes. Blood smears from CBCs yielding IG's will be scanned manually for malia danisac. If this scan disagrees with the automated IG or if promyelocytes are not ed, a manual differential will be performed. Josey Gran Abs 0.45 (H) 0.00 - 0.04 x10(3)/[facility] LABORATORY Specimen Anatomical Collection Method Collection Time Receive d Time (Source) Location / / Volume Laterality Blood specimen 05/06/2020 5:49 AM 020 5:59 (specimen) EDT AM EDT Resulting Agency Comment Spec In Lab Karina Lantigua MD HEMATOLOGY ORDERABLES Performing Organization Address City/State/[place] [address] (ABNORMAL) Hemogram (05/06/2020 5:49 AM EDT) athologist Signature WBC 41.5 4.0 - 9.5 [facility] (Critical) x10(3)/[facility] LABORATORY Comment: This result has been called to GERARDO KEYS by JENNI JHA on 05 06 2020 at 0653, and has been read back. RBC 3.50 (L) 4.00 - 5.21 x10(6)/[facility] LABORATORY Hemoglobin 9.8 (L) 11.7 - 15.5 gm/dL [facility] Hematocrit 30.2 (L) 35.7 - 45.8 % [facility] MCV 86.3 82.6 - 94.4 [facility] LABORATORY MCH 28.0 27.1 - 32.0 pg [facility] MCHC 32.5 31.7 - 35.0 gm/dL [facility] Platelets 277 145 - 357 x10(3)/[facility] LABORATORY RDWSD 56.6 (H) 37.0 - 46.0 [facility] LABORATORY RDWCV 18.1 (H) 11.5 - 14.1 % [facility] MPV 10.9 7.6 - 12.9 [facility] LABORATORY nRBC % Auto 0.0 % [facility] nRBC Abs Auto 0.000 0.000 - 0.000 x10(3)/[facility]L [facility]OR[facility]ORY Specimen Anatomical Collection Method Collection Time Receive d Time (Source) Location / / Volume Laterality Blood specimen 05/06/2020 5:49 AM 020 5:59 (specimen) EDT AM EDT Resulting Agency Comment Spec In Lab Karina Lantigua MD HEMATOLOGY ORDERABLES Performing Organization Address City/[facility]/[place] [address] (ABNORMAL) Prothrombin Time (05/06/2020 5:49 AM EDT) P athologist Signature PT 27.7 (H) 9.4 - 12.5 [facility] LABORATORY INR 2.4 [facility] Comment: An INR <2.0 indicates [...] Location / / Volume Laterality Blood specimen 05/06/2020 5:49 AM 020 5:59 (specimen) EDT AM EDT Resulting Agency Comment Spec In Lab Karina Lantigua MD HEMATOLOGY ORDERABLES Performing Organization Address City/[facility]/[place] [address] APTT (05/06/2020 5:49 AM EDT) P athologist Signature PTT 36 25 - 37 sec [facility] Comment: The PTT is NOT appropriate for heparin m onitoring. Use the Anti-Xa level for heparin monitoring (HEP UFH) or LMWH mon itoring (HEP LMW). A PTT less than 37 seconds generally indicates adequate hem ostasis. Specimen Anatomical Collection Method Collection Time Receive d Time (Source) Location / / Volume Laterality Blood specimen 05/06/2020 5:49 AM 020 5:59 (specimen) EDT AM EDT Resulting Agency Comment Spec In Lab Karina Lantigua MD HEMATOLOGY ORDERABLES Performing Organization Address City/[facility]/ZIP Code Phon e Number [address] Phosphorus (05/06/2020 5:49 AM EDT) athologist Signature Phosphorus 2.8 2.5 - 4.5 [facility] Specimen Anatomical Collection Method Collection Time Receive d Time (Source) Location / / Volume Laterality Blood specimen 05/06/2020 5:49 AM 020 5:59 (specimen) EDT AM EDT Resulting Agency Comment Spec In Lab Karina Lantigua MD CHEMISTRY ORDERABLES Performing Organization Address City/[facility]/ZIP Code Phon e Number [address] Magnesium (05/06/2020 5:49 AM EDT) athologist Signature Magnesium 0.99 0.69 - 1.07 [facility] mmol/L [facility] Specimen Anatomical Collection Method Collection Time Receive d Time (Source) Location / / Volume Laterality Blood specimen 05/06/2020 5:49 AM 020 5:59 (specimen) EDT AM EDT Resulting Agency Comment Spec In Lab Karina Lantigua MD CHEMISTRY ORDERABLES Performing Organization Address City/[facility]/[place] [address] (ABNORMAL) Comprehensive metabolic panel (non-fasting) (05/06/2020 5:49 AM EDT) athologist Signature Glucose Lvl 116 65 - 199 [facility] mg/dL [facility] Comment: Diabetes: >=200 mg/dL plus symp toms BUN 18 8 - 18 mg/dL [facility] Creatinine 0.57 (L) 0.70 - 1.20 mg/dL [facility] Sodium 136 135 - 145 mmol/L [facility] Potassium 4.1 3.5 - 5.0 mmol/L [facility] Comment: Please note: ??Patients with WBC >100,00 0 may have falsely elevated Potassium levels. ??For accurate Potassium quantif ication in these patients send serum separator tube (gold top) for subsequent determinations. ??Contact the Clinical Chemistry Laboratory if there are any qu estions. Chloride 99 98 - 107 mmol/L [facility] CO2 26 22 - 31 mmol/L [facility] Anion Gap 11 5 - 15 mmol/L [facility] Calcium 9.1 8.5 - 10.5 mg/dL [facility] Total Protein 6.6 6.1 - 8.0 gm/dL [facility] Albumin 3.7 3.2 - 5.2 gm/dL [facility] Comment: rkkesult rechecked- AST 204 (H) 0 - 30 unit/L [facility] ALT 56 (H) 0 - 30 unit/L [facility] Alk Phos 118 (H) 35 - 105 unit/L [facility] Total Bilirubin 19.5 (H) 0.2 - 1.3 mg/dL [facility] Estimated GFR 115 >=60 mL/min/1.73 m?? [facility] Comment: The eGFR was calculated using the CKD-EP I equation. As with all creatinine based estimates of kidney function, eGFR values calculated with the CKD-EPI equation are not accurate in patients wi th acute kidney failure, extremes of body mass or the acutely ill. [email or web address]/[facility] – MUSKOGEEnkf eGFR 133 >=60 mL/min/1.73 m?? [facility] Comment: The eGFR was calculated using the CKD-EP I equation. As with all creatinine based estimates of kidney function, eGFR values calculated with the CKD-EPI equation are not accurate in patients wi th acute kidney failure, extremes of body mass or the acutely ill. [email or web address]/[facility] MUSKOGEEnkf Specimen Anatomical Collection Method Collection Time Receive d Time (Source) Location / / Volume Laterality Blood specimen 05/06/2020 5:49 AM 5:59 (specimen) EDT AM EDT Resulting Agency Comment Spec In Lab Karina Lantigua MD CHEMISTRY ORDERABLES Performing Organization Address City/[facility]/ZIP Code Phon e Number [address] Osmolality, urine, random (05/05/2020 3:10 PM EDT) P athologist Signature U Osmolality 605 50 - 1,200 [facility] mOsm/kg [facility] Specimen Anatomical Collection Method Collection Time Receive d Time (Source) Location / / Volume Laterality Urine specimen 05/05/2020 3:10 PM 020 3:32 (specimen) EDT PM EDT Resulting Agency Comment Spec In Lab Carlitos Taveras MD URINE ORDERABLES Performing Organization Address [facility]/ZIP Code Phon e Number [address] Creatinine, urine, random (05/05/2020 3:10 PM EDT) P athologist Signature U Creatinine 146 mg/dL [facility] Specimen Anatomical Collection Method Collection Time Receive d Time (Source) Location / / Volume Laterality Urine specimen 05/05/2020 3:10 PM 020 3:32 (specimen) EDT PM EDT Resulting Agency Comment Spec In Lab Carlitos Taveras MD URINE ORDERABLES Performing Organization Address City/[facility]/ZIP Code Phon e Number [address] Sodium, urine, random (05/05/2020 3:10 PM EDT) P athologist Signature U Sodium <20 mmol/L [facility] Specimen Anatomical Collection Method Collection Time Receive d Time (Source) Location / / Volume Laterality Urine specimen 05/05/2020 3:10 PM 020 3:32 (specimen) EDT PM EDT Resulting Agency Comment Spec In Lab Carlitos Taveras MD URINE ORDERABLES Performing Organization Address City/[facility]/ZIP Code Phon e Number [address] (ABNORMAL) Differential, Automated (05/05/2020 4:41 AM EDT) [facility] gist Method Time Signature Neutrophils % 89.6 % [facility] Neutr Abs (ANC) 29.52 (H) 1.70 - [facility] 6.10 [facility] x10(3)/[facility] LABORATORY Lymphocytes % 3.7 % [facility] Lymphocytes Abs 1.2 0.9 - 3.2 [facility] x10(3)/[facility] LABORATORY Monocytes % 5.5 % [facility] Monocyte Abs 1.8 (H) 0.3 - 0.9 [facility] x10(3)/[facility] LABORATORY Eosinophils % 0.1 % [facility] Eosinophils Abs 0.0 0.0 - 0.4 [facility] x10(3)/[facility] LABORATORY Basophils % 0.1 % [facility] Basophils Abs 0.0 0.0 - 0.1 [facility] x10(3)/[facility] LABORATORY Immature Gran % 1.00 % [facility] Comment: Immature granulocytes(IG's)percentage an d absolute count will include metamyelocytes, myelocytes, and promyelo cytes. Blood smears from CBCs yielding IG's will be scanned manually for concor dance. If this scan disagrees with the automated IG or if promyelocytes are not ed, a manual differential will be performed. Josey Gran Abs 0.33 (H) 0.00 - 0.04 x10(3)/[facility] LABORATORY Specimen Anatomical Collection Method Collection Time Receive d Time (Source) Location / / Volume Laterality Blood specimen 05/05/2020 4:41 AM 020 4:53 (specimen) EDT AM EDT Resulting Agency Comment Spec In Lab Karina Lantigua MD HEMATOLOGY ORDERABLES Performing Organization Address City/State/ZIP Code Phon e Number [address] (ABNORMAL) Hemogram (05/05/2020 4:41 AM EDT) athologist Signature WBC 32.9 4.0 - 9.5 [facility] (Critical) x10(3)/[facility] LABORATORY Comment: This result has been called to SOLE [employer]ARE by Johanne Rubio on 05 05 2020 at 0508, and has been read back. RBC 3.39 (L) 4.00 - 5.21 x10(6)/[facility] LABORATORY Hemoglobin 9.5 (L) 11.7 - 15.5 gm/dL [facility] LABORATORY Hematocrit 29.0 (L) 35.7 - 45.8 % [facility] LABORATORY MCV 85.5 82.6 - 94.4 [facility] LABORATORY MCH 28.0 27.1 - 32.0 pg [facility] LABORATORY MCHC 32.8 31.7 - 35.0 gm/dL [facility] LABORATORY Platelets 240 145 - 357 x10(3)/[facility] LABORATORY RDWSD 56.4 (H) 37.0 - 46.0 [facility] LABORATORY RDWCV 18.2 (H) 11.5 - 14.1 % [facility] LABORATORY MPV 10.5 7.6 - 12.9 [facility] LABORATORY nRBC % Auto 0.0 % [facility] LABORATORY nRBC Abs Auto 0.000 0.000 - 0.000 x10(3)/[facility] LABORATORY Specimen Anatomical Collection Method Collection Time Receive d Time (Source) Location / / Volume Laterality Blood specimen 05/05/2020 4:41 AM 020 4:53 (specimen) EDT AM EDT Resulting Agency Comment Spec In Lab Karina Lantigua MD HEMATOLOGY ORDERABLES Performing Organization Address City/State/[place] [address] (ABNORMAL) Prothrombin Time (05/05/2020 4:41 AM EDT) athologist Signature PT 28.3 (H) 9.4 - 12.5 [facility] LABORATORY INR 2.5 [facility] LABORATORY Comment: An INR <2.0 indicates [...] Location / / Volume Laterality Blood specimen 05/05/2020 4:41 AM 020 4:53 (specimen) EDT AM EDT Resulting Agency Comment Spec In Lab Karina Lantigua MD HEMATOLOGY ORDERABLES Performing Organization Address City/[facility]/ZIP Code Phon e Number [address] APTT (05/05/2020 4:41 AM EDT) P athologist Signature PTT 37 25 - 37 sec [facility] LABORATORY Comment: The PTT is NOT appropriate for heparin m onitoring. Use the Anti-Xa level for heparin monitoring (HEP UFH) or LMWH mon itoring (HEP LMW). A PTT less than 37 seconds generally indicates adequate hem ostasis. Specimen Anatomical Collection Method Collection Time Receive d Time (Source) Location / / Volume Laterality Blood specimen 05/05/2020 4:41 AM 020 4:53 (specimen) EDT AM EDT Resulting Agency Comment Spec In Lab Karina Lantigua MD HEMATOLOGY ORDERABLES Performing Organization Address City/State/[place] [address] Phosphorus (05/05/2020 4:41 AM EDT) P athologist Signature Phosphorus 3.2 2.5 - 4.5 [facility] mg/dL [facility] LABORATORY Specimen Anatomical Collection Method Collection Time Receive d Time (Source) Location / / Volume Laterality Blood specimen 05/05/2020 4:41 AM 020 4:53 (specimen) EDT AM EDT Resulting Agency Comment Spec In Lab Karina Lantigua MD CHEMISTRY ORDERABLES Performing Organization Address City/State/ZIP Code Phon e Number [address] Magnesium (05/05/2020 4:41 AM EDT) athologist Signature Magnesium 0.91 0.69 - 1.07 [facility] mmol/L [facility] LABORATORY Specimen Anatomical Collection Method Collection Time Receive d Time (Source) Location / / Volume Laterality Blood specimen 05/05/2020 4:41 AM 020 4:53 (specimen) EDT AM EDT Resulting Agency Comment Spec In Lab Karina Lantigua MD CHEMISTRY ORDERABLES Performing Organization Address City/[facility]/ZIP Code Phon e Number [address] (ABNORMAL) Comprehensive metabolic panel (non-fasting) (05/05/2020 4:41 AM EDT) athologist Signature Glucose Lvl 106 65 - 199 [facility] mg/dL [facility] LABORATORY Comment: Diabetes: >=200 mg/dL plus symp toms BUN 21 (H) 8 - 18 mg/dL [facility] LABORATORY Creatinine 1.56 (H) 0.70 - 1.20 mg/dL [facility] LABORATORY Comment: x3 dilution Sodium 134 (L) 135 - 145 mmol/L [facility] LABORATORY Potassium 4.5 3.5 - 5.0 mmol/L [facility] LABORATORY Comment: Please note: ??Patients with WBC >100,00 0 may have falsely elevated Potassium levels. ??For accurate Potassium quantif ication in these patients send serum separator tube (gold top) for subsequent determinations. ??Contact the Clinical Chemistry Laboratory if there are any qu estions. Chloride 98 98 - 107 mmol/L [facility] LABORATORY CO2 26 22 - 31 mmol/L [facility] LABORATORY Anion Gap 10 5 - 15 mmol/L [facility] LABORATORY Calcium 8.4 (L) 8.5 - 10.5 mg/dL [facility] LABORATORY Total Protein 9.0 (H) 6.1 - 8.0 gm/dL [facility] LABORATORY Comment: x3 dilution Albumin 2.6 (L) 3.2 - 5.2 gm/dL [facility] LABORATORY AST 207 (H) 0 - 30 unit/L [facility] LABORATORY ALT 48 (H) 0 - 30 unit/L [facility] LABORATORY Alk Phos 121 (H) 35 - 105 unit/L [facility] LABORATORY Total Bilirubin 17.6 (H) 0.2 - 1.3 mg/dL [facility] LABORATORY Estimated GFR 41 (L) >=60 mL/min/1.73 m?? [facility] LABORATORY Comment: The eGFR was calculated using the CKD-EP I equation. As with all creatinine based estimates of kidney function, eGFR values calculated with the CKD-EPI equation are not accurate in patients wi th acute kidney failure, extremes of body mass or the acutely ill. [email or web address] eGFR 47 (L) >=60 mL/min/1.73 m?? [facility] LABORATORY Comment: The eGFR was calculated using the CKD-EP I equation. As with all creatinine based estimates of kidney function, eGFR values calculated with the CKD-EPI equation are not accurate in patients wi th acute kidney failure, extremes of body mass or the acutely ill. [email or web address] Specimen Anatomical Collection Method Collection Time Receive d Time (Source) Location / / Volume Laterality Blood specimen 05/05/2020 4:41 AM 020 4:53 (specimen) EDT AM EDT Resulting Agency Comment Spec In Lab Karina Lantigua MD CHEMISTRY ORDERABLES Performing Organization Address City/State/[place] [address] (ABNORMAL) Differential, Automated (05/04/2020 3:18 AM EDT) [facility] gist Method Time Signature Neutrophils % 89.7 % [facility] LABORATORY Neutr Abs (ANC) 26.12 (H) 1.70 - [facility] 6.10 [facility] x10(3)/[facility] L LABORATORY Lymphocytes % 3.3 % [facility] LABORATORY Lymphocytes Abs 1.0 0.9 - 3.2 [facility] x10(3)/[facility] LABORATORY Monocytes % 6.1 % [facility] LABORATORY Monocyte Abs 1.8 (H) 0.3 - 0.9 [facility] x10(3)/[facility] LABORATORY Eosinophils % 0.0 % [facility] LABORATORY Eosinophils Abs 0.0 0.0 - 0.4 [facility] x10(3)/[facility] LABORATORY Basophils % 0.1 % [facility] LABORATORY Basophils Abs 0.0 0.0 - 0.1 [facility] x10(3)/[facility] LABORATORY Immature Gran % 0.80 % [facility] LABORATORY Comment: Immature granulocytes(IG's)percentage an d absolute count will include metamyelocytes, myelocytes, and promyelo cytes. Blood smears from CBCs yielding IG's will be scanned manually for concor dance. If this scan disagrees with the automated IG or if promyelocytes are not ed, a manual differential will be performed. Josey Gran Abs 0.22 (H) 0.00 - 0.04 x10(3)/[facility] LABORATORY Specimen Anatomical Collection Method Collection Time Receive d Time (Source) Location / / Volume Laterality Blood specimen 05/04/2020 3:18 AM 020 3:46 (specimen) EDT AM EDT Resulting Agency Comment Spec In Lab Karina Lantigua MD HEMATOLOGY ORDERABLES Performing Organization Address City/State/[place] [address] (ABNORMAL) Hemogram (05/04/2020 3:18 AM EDT) Analysis Performed At Patho logist Time Signature WBC 29.1 (H) 4.0 - 9.5 [facility] x10(3)/[facility] LABORATORY RBC 3.40 (L) 4.00 - [facility] 5.21 [facility] x10(6)/[facility] LABORATORY Hemoglobin 9.6 (L) 11.7 - [facility] 15.5 gm/dL [facility] LABORATORY Hematocrit 29.5 (L) 35.7 - [facility] 45.8 % [facility] LABORATORY MCV 86.8 82.6 - [facility] 94.4 [facility] LABORATORY MCH 28.2 27.1 - [facility] 32.0 pg [facility] LABORATORY MCHC 32.5 31.7 - [facility] 35.0 gm/dL [facility] LABORATORY Platelets 264 145 - 357 [facility] x10(3)/[facility] LABORATORY RDWSD 57.6 (H) 37.0 - [facility] 46.0 [facility] LABORATORY RDWCV 18.5 (H) 11.5 - [facility] 14.1 % [facility] LABORATORY MPV 10.5 7.6 - 12.9 [facility] LABORATORY nRBC % Auto 0.0 % [facility] LABORATORY nRBC Abs Auto 0.000 0.000 - [facility] 0.000 [facility] x10(3)/[facility] LABORATORY Specimen Anatomical Collection Method Collection Time Receive d Time (Source) Location / / Volume Laterality Blood specimen 05/04/2020 3:18 AM 020 3:46 (specimen) EDT AM EDT Resulting Agency Comment Spec In Lab Karina Lantigua MD HEMATOLOGY ORDERABLES Performing Organization Address City/State/[place] [address] (ABNORMAL) Prothrombin Time (05/04/2020 3:18 AM EDT) P athologist Signature PT 27.2 (H) 9.4 - 12.5 [facility] LABORATORY INR 2.4 [facility] LABORATORY Comment: An INR <2.0 indicates [...] Location / / Volume Laterality Blood specimen 05/04/2020 3:18 AM 020 3:46 (specimen) EDT AM EDT Resulting Agency Comment Spec In Lab Karina Lantigua MD HEMATOLOGY ORDERABLES Performing Organization Address City/State/ZIP Code Phon e Number [address] APTT (05/04/2020 3:18 AM EDT) P athologist Signature PTT 37 25 - 37 sec [facility] LABORATORY Comment: The PTT is NOT appropriate for heparin m onitoring. Use the Anti-Xa level for heparin monitoring (HEP UFH) or LMWH mon itoring (HEP LMW). A PTT less than 37 seconds generally indicates adequate hem ostasis. Specimen Anatomical Collection Method Collection Time Receive d Time (Source) Location / / Volume Laterality Blood specimen 05/04/2020 3:18 AM 020 3:46 (specimen) EDT AM EDT Resulting Agency Comment Spec In Lab Karina Lantigua MD HEMATOLOGY ORDERABLES Performing Organization Address City/[facility]/ZIP Code Phon e Number [address] Phosphorus (05/04/2020 3:18 AM EDT) P athologist Signature Phosphorus 3.1 2.5 - 4.5 [facility] mg/dL [facility] LABORATORY Specimen Anatomical Collection Method Collection Time Receive d Time (Source) Location / / Volume Laterality Blood specimen 05/04/2020 3:18 AM 020 3:46 (specimen) EDT AM EDT Resulting Agency Comment Spec In Lab Karina Lantigua MD CHEMISTRY ORDERABLES Performing Organization Address City/[facility]/ZIP Code Phon e Number [address] Magnesium (05/04/2020 3:18 AM EDT) P athologist Signature Magnesium 0.93 0.69 - 1.07 [facility] mmol/L [facility] LABORATORY Specimen Anatomical Collection Method Collection Time Receive d Time (Source) Location / / Volume Laterality Blood specimen 05/04/2020 3:18 AM 020 3:46 (specimen) EDT AM EDT Resulting Agency Comment Spec In Lab Karina Lantigua MD CHEMISTRY ORDERABLES Performing Organization Address City/State/[place] [address] (ABNORMAL) Comprehensive metabolic panel (non-fasting) (05/04/2020 3:18 AM EDT) athologist Signature Glucose Lvl 122 65 - 199 [facility] mg/dL [facility] LABORATORY Comment: Diabetes: >=200 mg/dL plus symp toms BUN 20 (H) 8 - 18 mg/dL [facility] LABORATORY Creatinine 1.02 0.70 - 1.20 mg/dL [facility] LABORATORY Sodium 135 135 - 145 mmol/L [facility] LABORATORY Potassium 4.3 3.5 - 5.0 mmol/L [facility] LABORATORY Comment: Please note: ??Patients with WBC >100,00 0 may have falsely elevated Potassium levels. ??For accurate Potassium quantif ication in these patients send serum separator tube (gold top) for subsequent determinations. ??Contact the Clinical Chemistry Laboratory if there are any qu estions. Chloride 100 98 - 107 mmol/L [facility] LABORATORY CO2 26 22 - 31 mmol/L [facility] LABORATORY Anion Gap 9 5 - 15 mmol/L [facility] LABORATORY Calcium 8.4 (L) 8.5 - 10.5 mg/dL [facility] LABORATORY Total Protein 5.4 (L) 6.1 - 8.0 gm/dL [facility] LABORATORY Albumin 2.6 (L) 3.2 - 5.2 gm/dL [facility] LABORATORY AST 206 (H) 0 - 30 unit/L [facility] LABORATORY ALT 43 (H) 0 - 30 unit/L [facility] LABORATORY Alk Phos 143 (H) 35 - 105 unit/L [facility] LABORATORY Total Bilirubin 17.7 (H) 0.2 - 1.3 mg/dL [facility] LABORATORY Estimated GFR 68 >=60 mL/min/1.73 m?? [facility] LABORATORY Comment: The eGFR was calculated using the CKD-EP I equation. As with all creatinine based estimates of kidney function, eGFR values calculated with the CKD-EPI equation are not accurate in patients wi th acute kidney failure, extremes of body mass or the acutely ill. [email or web address] eGFR 79 >=60 mL/min/1.73 m?? [facility] LABORATORY Comment: The eGFR was calculated using the CKD-EP I equation. As with all creatinine based estimates of kidney function, eGFR values calculated with the CKD-EPI equation are not accurate in patients wi th acute kidney failure, extremes of body mass or the acutely ill. [email or web address] Specimen Anatomical Collection Method Collection Time Receive d Time (Source) Location / / Volume Laterality Blood specimen 05/04/2020 3:18 AM 020 3:46 (specimen) EDT AM EDT Resulting Agency Comment Spec In Lab Karina Lantigua MD CHEMISTRY ORDERABLES Performing Organization Address City/State/ZIP Code Phon e Number [place] [id number] HOS[address] LAB[address]ORY Drive (ABNORMAL) Differential, Automated (05/03/2020 5:11 AM EDT) [facility] Method Time Signature Neutrophils % 89.0 % [facility] LABORATORY Neutr Abs (ANC) 31.63 (H) 1.70 - [facility] 6.10 [facility] x10(3)/[facility] L LABORATORY Lymphocytes % 3.7 % [facility] LABORATORY Lymphocytes Abs 1.3 0.9 - 3.2 [facility] x10(3)/[facility] LABORATORY Monocytes % 6.3 % [facility] LABORATORY Monocyte Abs 2.2 (H) 0.3 - 0.9 [facility] x10(3)/[facility] LABORATORY Eosinophils % 0.0 % [facility] LABORATORY Eosinophils Abs 0.0 0.0 - 0.4 [facility] x10(3)/[facility] LABORATORY Basophils % 0.2 % [facility] LABORATORY Basophils Abs 0.1 0.0 - 0.1 [facility] x10(3)/[facility] LABORATORY Immature Gran % 0.80 % [facility] LABORATORY Comment: Immature granulocytes(IG's)percentage an d absolute count will include metamyelocytes, myelocytes, and promyelo cytes. Blood smears from CBCs yielding IG's will be scanned manually for concor dance. If this scan disagrees with the automated IG or if promyelocytes are not ed, a manual differential will be performed. Josey Gran Abs 0.30 (H) 0.00 - 0.04 x10(3)/[facility] LABORATORY Specimen Anatomical Collection Method Collection Time Receive d Time (Source) Location / / Volume Laterality Blood specimen 05/03/2020 5:11 AM 020 5:19 (specimen) EDT AM EDT Resulting Agency Comment Spec In Lab Karina Lantigua MD HEMATOLOGY ORDERABLES Performing Organization Address City/State/[place] [address] (ABNORMAL) Hemogram (05/03/2020 5:11 AM EDT) P athologist Signature WBC 35.5 4.0 - 9.5 [facility] (Critical) x10(3)/[facility] LABORATORY Comment: This result has been called to FIDELIA GAXIOLA by Johanne Rubio on 05 03 2020 at 0535, and has been read back. RBC 3.64 (L) 4.00 - 5.21 x10(6)/[facility] LABORATORY Hemoglobin 10.6 (L) 11.7 - 15.5 gm/dL [facility] LABORATORY Hematocrit 31.5 (L) 35.7 - 45.8 % [facility] LABORATORY MCV 86.5 82.6 - 94.4 fL [facility] LABORATORY MCH 29.1 27.1 - 32.0 pg [facility] LABORATORY MCHC 33.7 31.7 - 35.0 gm/dL [facility] LABORATORY Platelets 335 145 - 357 x10(3)/[facility] LABORATORY RDWSD 58.0 (H) 37.0 - 46.0 fL [facility] LABORATORY RDWCV 18.8 (H) 11.5 - 14.1 % [facility] LABORATORY MPV 10.1 7.6 - 12.9 fL [facility] LABORATORY nRBC % Auto 0.0 % [facility] LABORATORY nRBC Abs Auto 0.000 0.000 - 0.000 x10(3)/[facility] LABORATORY Specimen Anatomical Collection Method Collection Time Receive d Time (Source) Location / / Volume Laterality Blood specimen 05/03/2020 5:11 AM 020 5:19 (specimen) EDT AM EDT Resulting Agency Comment Spec In Lab Karina Lantigua MD HEMATOLOGY ORDERABLES Performing Organization Address City/State/[place] [address] (ABNORMAL) Prothrombin Time (05/03/2020 5:11 AM EDT) P athologist Signature PT 25.8 (H) 9.4 - 12.5 [facility] LABORATORY Comment: Results may be affected by the presence of interfering substances. Interpret Results with Caution. INR 2.2 [facility] LABORATORY Comment: Results may be affected by the presence of interfering substances. Interpret Results with Caution. An INR <2.0 indicates adequate procoagul ant [...] Location / / Volume Laterality Blood specimen 05/03/2020 5:11 AM 020 5:19 (specimen) EDT AM EDT Resulting Agency Comment Spec In Lab Karina Lantigua MD HEMATOLOGY ORDERABLES Performing Organization Address [facility]/[place] [address] (ABNORMAL) APTT (05/03/2020 5:11 AM EDT) P athologist Signature PTT 39 (H) 25 - 37 sec [facility] LABORATORY Comment: Results may be affected by the presence of interfering substances. Interpret Results with Caution. The PTT is NOT appropriate for heparin m onitoring. Use the Anti-Xa level for heparin monitoring (HEP UFH) or LMWH mon itoring (HEP LMW). A PTT less than 37 seconds generally indicates adequate hem ostasis. Specimen Anatomical Collection Method Collection Time Receive d Time (Source) Location / / Volume Laterality Blood specimen 05/03/2020 5:11 AM 020 5:19 (specimen) EDT AM EDT Resulting Agency Comment Spec In Lab Karina Lantigua MD HEMATOLOGY ORDERABLES Performing Organization Address City/[facility]/[place] [address] Phosphorus (05/03/2020 5:11 AM EDT) P athologist Signature Phosphorus 3.3 2.5 - 4.5 [facility] mg/dL [facility] LABORATORY Specimen Anatomical Collection Method Collection Time Receive d Time (Source) Location / / Volume Laterality Blood specimen 05/03/2020 5:11 AM 020 5:19 (specimen) EDT AM EDT Resulting Agency Comment Spec In Lab Karina Lantigua MD CHEMISTRY ORDERABLES Performing Organization Address City/[facility]/[place] [address] Magnesium (05/03/2020 5:11 AM EDT) P athologist Signature Magnesium 1.00 0.69 - 1.07 [facility] mmol/L [facility] LABORATORY Specimen Anatomical Collection Method Collection Time Receive d Time (Source) Location / / Volume Laterality Blood specimen 05/03/2020 5:11 AM 020 5:19 (specimen) EDT AM EDT Resulting Agency Comment Spec In Lab Karina Lantigua MD CHEMISTRY ORDERABLES Performing Organization Address City/State/[place] [address] (ABNORMAL) Comprehensive metabolic panel (non-fasting) (05/03/2020 5:11 AM EDT) P athologist Signature Glucose Lvl 116 65 - 199 [facility] mg/dL [facility] LABORATORY Comment: Diabetes: >=200 mg/dL plus symp toms BUN 17 8 - 18 mg/dL [facility] LABORATORY Comment: result rechecked-kk Creatinine 0.93 0.70 - 1.20 mg/dL [facility] LABORATORY Comment: x3 dilution Sodium 134 (L) 135 - 145 mmol/L [facility] LABORATORY Potassium 4.2 3.5 - 5.0 mmol/L [facility] LABORATORY Comment: Please note: ??Patients with WBC >100,00 0 may have falsely elevated Potassium levels. ??For accurate Potassium quantif ication in these patients send serum separator tube (gold top) for subsequent determinations. ??Contact the Clinical Chemistry Laboratory if there are any qu estions. Chloride 99 98 - 107 mmol/L [facility] LABORATORY CO2 26 22 - 31 mmol/L [facility] LABORATORY Anion Gap 9 5 - 15 mmol/L [facility] LABORATORY Calcium 8.9 8.5 - 10.5 mg/dL [facility] LABORATORY Total Protein 6.6 6.1 - 8.0 gm/dL [facility] LABORATORY Comment: x3 dilution Albumin 2.9 (L) 3.2 - 5.2 gm/dL [facility] LABORATORY AST 201 (H) 0 - 30 unit/L [facility] LAB[facility] ALT 35 (H) 0 - 30 unit/L [facility] LABOR[facility] Alk Phos 137 (H) 35 - 105 unit/L [facility] LABORATORY Total Bilirubin 21.4 (H) 0.2 - 1.3 mg/dL [facility] LABORATORY Estimated GFR 76 >=60 mL/min/1.73 m?? [facility] LABORATORY Comment: The eGFR was calculated using the CKD-EP I equation. As with all creatinine based estimates of kidney function, eGFR values calculated with the CKD-EPI equation are not accurate in patients wi th acute kidney failure, extremes of body mass or the acutely ill. [email or web address] eGFR 88 >=60 mL/min/1.73 m?? [facility] LABORATORY Comment: The eGFR was calculated using the CKD-EP I equation. As with all creatinine based estimates of kidney function, eGFR values calculated with the CKD-EPI equation are not accurate in patients wi th acute kidney failure, extremes of body mass or the acutely ill. [email or web address] Specimen Anatomical Collection Method Collection Time Receive d Time (Source) Location / / Volume Laterality Blood specimen 05/03/2020 5:11 AM 020 5:19 (specimen) EDT AM EDT Resulting Agency Comment Spec In Lab Karina Lantigua MD CHEMISTRY ORDERABLES Performing Organization Address City/State/[place] [address] (ABNORMAL) Differential, Automated (05/02/2020 6:04 AM EDT) [facility] Method Time Signature Neutrophils % 88.8 % [facility]OR[facility] Neutr Abs (ANC) 29.32 (H) 1.70 - [facility] 6.10 [facility] x10(3)/[facility] LABORATORY Lymphocytes % 3.7 % [facility] Lymphocytes Abs 1.2 0.9 - 3.2 [facility] x10(3)/[facility] LABORATORY Monocytes % 6.5 % [facility] Monocyte Abs 2.1 (H) 0.3 - 0.9 [facility] x10(3)/[facility] LABORATORY Eosinophils % 0.0 % [facility] Eosinophils Abs 0.0 0.0 - 0.4 [facility] x10(3)/[facility] LABORATORY Basophils % 0.2 % [facility] Basophils Abs 0.0 0.0 - 0.1 [facility] x10(3)/[facility] LABORATORY Immature Gran % 0.80 % [facility] Comment: Immature granulocytes(IG's)percentage an d absolute count will include metamyelocytes, myelocytes, and promyelo cytes. Blood smears from CBCs yielding IG's will be scanned manually for concor dance. If this scan disagrees with the automated IG or if promyelocytes are not ed, a manual differential will be performed. Josey Gran Abs 0.28 (H) 0.00 - 0.04 x10(3)/[facility] LABORATORY Specimen Anatomical Collection Method Collection Time Receive d Time (Source) Location / / Volume Laterality Blood specimen 05/02/2020 6:04 AM 020 6:35 (specimen) EDT AM EDT Resulting Agency Comment Spec In Lab Karina Lantigua MD HEMATOLOGY ORDERABLES Performing Organization Address City/State/[place] [address] (ABNORMAL) Hemogram (05/02/2020 6:04 AM EDT) P athologist Signature WBC 33.0 4.0 - 9.5 [facility] (Critical) x10(3)/[facility] LABORATORY Comment: This result has been called to SOLE WARE by SAMANTA AKINS on 05 02 2020 at 0720, and has been read back. RBC 3.51 (L) 4.00 - 5.21 x10(6)/[facility] LABORATORY Hemoglobin 10.3 (L) 11.7 - 15.5 gm/dL [facility] LABORATORY Hematocrit 30.9 (L) 35.7 - 45.8 % [facility] MCV 88.0 82.6 - 94.4 fL [facility] MCH 29.3 27.1 - 32.0 pg [facility] MCHC 33.3 31.7 - 35.0 gm/dL [facility]ORATORY Platelets 380 (H) 145 - 357 x10(3)/[facility] LABORATORY RDWSD 61.4 (H) 37.0 - 46.0 fL [facility] RDWCV 19.1 (H) 11.5 - 14.1 % [facility]ORAT[facility] MPV 10.8 7.6 - 12.9 fL [facility] nRBC % Auto 0.0 % [facility] LABORATORY nRBC Abs Auto 0.000 0.000 - 0.000 x10(3)/mcL M [facility] LABORATORY Specimen Anatomical Collection Method Collection Time Receive d Time (Source) Location / / Volume Laterality Blood specimen 05/02/2020 6:04 AM 020 6:35 (specimen) EDT AM EDT Resulting Agency Comment Spec In Lab Karina Lantigua MD HEMATOLOGY ORDERABLES Performing Organization Address City/[facility] [place] [address] (ABNORMAL) Prothrombin Time (05/02/2020 6:04 AM EDT) P athologist Signature PT 27.6 (H) 9.4 - 12.5 [facility] LABORATORY INR 2.4 [facility] Comment: An INR <2.0 indicates [...] Location / / Volume Laterality Blood specimen 05/02/2020 6:04 AM 020 6:35 (specimen) EDT AM EDT Resulting Agency Comment Spec In Lab Karina Lantigua MD HEMATOLOGY ORDERABLES Performing Organization Address City/[facility]/ZIP [facility] [place] [address] (ABNORMAL) APTT (05/02/2020 6:04 AM EDT) P athologist Signature PTT 41 (H) 25 - 37 sec [facility] Comment: Results may be affected by the presence of interfering substances. Interpret Results with Caution. The PTT is NOT appropriate for heparin m onitoring. Use the Anti-Xa level for heparin monitoring (HEP UFH) or LMWH mon itoring (HEP LMW). A PTT less than 37 seconds generally indicates adequate hem ostasis. Specimen Anatomical Collection Method Collection Time Receive d Time (Source) Location / / Volume Laterality Blood specimen 05/02/2020 6:04 AM 020 6:35 (specimen) EDT AM EDT Resulting Agency Comment Spec In Lab Karina Lantigua MD HEMATOLOGY ORDERABLES Performing Organization Address City/[facility]/ZIP [facility] Phon e Number [address] Phosphorus (05/02/2020 6:04 AM EDT) athologist Signature Phosphorus 3.1 2.5 - 4.5 [facility] mg/dL [facility] LABORATORY Specimen Anatomical Collection Method Collection Time Receive d Time (Source) Location / / Volume Laterality Blood specimen 05/02/2020 6:04 AM 020 6:35 (specimen) EDT AM EDT Resulting Agency Comment Spec In Lab Karina Lantigua MD CHEMISTRY ORDERABLES Performing Organization Address City/[facility]/ZIP Code Phon e Number [address] Magnesium (05/02/2020 6:04 AM EDT) athologist Signature Magnesium 0.95 0.69 - 1.07 [facility] mmol/L [facility]OR[facility] Specimen Anatomical Collection Method Collection Time Receive d Time (Source) Location / / Volume Laterality Blood specimen 05/02/2020 6:04 AM 020 6:35 (specimen) EDT AM EDT Resulting Agency Comment Spec In Lab Karina Lantigua MD CHEMISTRY ORDERABLES Performing Organization Address City/[facility]/ZIP [facility] [place] [address] (ABNORMAL) Comprehensive metabolic panel (non-fasting) (05/02/2020 6:04 AM EDT) P athologist Signature Glucose Lvl 119 65 - 199 [facility] mg/dL [facility] Comment: Diabetes: >=200 mg/dL plus symp toms BUN 10 8 - 18 mg/dL [facility] LABORATORY Comment: result rechecked- vh Creatinine 0.92 0.70 - 1.20 mg/dL [facility] LABORATORY Sodium 135 135 - 145 mmol/L [facility] Potassium 4.2 3.5 - 5.0 mmol/L [facility] Comment: Please note: ??Patients with WBC >100,00 0 may have falsely elevated Potassium levels. ??For accurate Potassium quantif ication in these patients send serum separator tube (gold top) for subsequent determinations. ??Contact the Clinical Chemistry Laboratory if there are any qu estions. Chloride 100 98 - 107 mmol/L [facility] CO2 21 (L) 22 - 31 mmol/L [facility] Anion Gap 14 5 - 15 mmol/L [facility] Calcium 8.7 8.5 - 10.5 mg/dL [facility] Total Protein 5.4 (L) 6.1 - 8.0 gm/dL [facility]OR[facility] Albumin 2.6 (L) 3.2 - 5.2 gm/dL [facility] AST 150 (H) 0 - 30 unit/L [facility] ALT 28 0 - 30 unit/L [facility] Alk Phos 136 (H) 35 - 105 unit/L [facility] Total Bilirubin 21.1 (H) 0.2 - 1.3 mg/dL [facility] LABOR[facility] Estimated GFR 77 >=60 mL/min/1.73 m?? [facility] Comment: The eGFR was calculated using the CKD-EP I equation. As with all creatinine based estimates of kidney function, eGFR values calculated with the CKD-EPI equation are not accurate in patients wi th acute kidney failure, extremes of body mass or the acutely ill. [email or web address] eGFR 90 >=60 mL/min/1.73 m?? [facility] Comment: The eGFR was calculated using the CKD-EP I equation. As with all creatinine based estimates of kidney function, eGFR values calculated with the CKD-EPI equation are not accurate in patients wi th acute kidney failure, extremes of body mass or the acutely ill. [email or web address] Specimen Anatomical Collection Method Collection Time Receive d Time (Source) Location / / Volume Laterality Blood specimen 05/02/2020 6:04 AM 020 6:35 (specimen) EDT AM EDT Resulting Agency Comment Spec In Lab Karina Lantigua MD CHEMISTRY ORDERABLES Performing Organization Address City/[facility]/ZIP Code Phon e Number [address] (ABNORMAL) Bilirubin, Direct (05/01/2020 5:11 AM EDT) Analysis Performed At Patho logist Time Signature Bili, Direct >10.0 (H) 0.0 - 0.3 [facility] mg/dL [facility] Specimen Anatomical Collection Method Collection Time Receive d Time (Source) Location / / Volume Laterality Blood specimen 05/01/2020 5:11 AM 020 5:53 (specimen) EDT AM EDT Resulting Agency Comment Spec In Lab Karina Lantigua MD CHEMISTRY ORDERABLES Performing Organization Address City/[facility]/ZIP [facility] Phon e Number [address] (ABNORMAL) Differential, Automated (05/01/2020 5:11 AM EDT) Patholo gist Method Time Signature Neutrophils % 93.2 % [facility] Neutr Abs (ANC) 25.03 (H) 1.70 - [facility] 6.10 [facility] x10(3)/[facility] L LABORATORY Lymphocytes % 2.8 % [facility] Lymphocytes Abs 0.8 (L) 0.9 - 3.2 [facility] x10(3)/[facility] LABORATORY Monocytes % 3.0 % [facility] Monocyte Abs 0.8 0.3 - 0.9 [facility] x10(3)/[facility] LABORATORY Eosinophils % 0.0 % [facility] Eosinophils Abs 0.0 0.0 - 0.4 [facility] x10(3)/[facility] LABORATORY Basophils % 0.2 % [facility] Basophils Abs 0.0 0.0 - 0.1 [facility] x10(3)/[facility] LABORATORY Immature Gran % 0.80 % [facility] Comment: Immature granulocytes(IG's)percentage an d absolute count will include metamyelocytes, myelocytes, and promyelo cytes. Blood smears from CBCs yielding IG's will be scanned manually for concor dance. If this scan disagrees with the automated IG or if promyelocytes are not ed, a manual differential will be performed. Josey Gran Abs 0.22 (H) 0.00 - 0.04 x10(3)/[facility] LABORATORY Specimen Anatomical Collection Method Collection Time Receive d Time (Source) Location / / Volume Laterality Blood specimen 05/01/2020 5:11 AM 020 5:53 (specimen) EDT AM EDT Resulting Agency Comment Spec In Lab Moi Reyes MD HEMATOLOGY ORDERABLES Performing Organization Address City/State/[place] [address] (ABNORMAL) Hemogram (05/01/2020 5:11 AM EDT) Analysis Performed At Patho logist Time Signature WBC 26.9 (H) 4.0 - 9.5 [facility] x10(3)/[facility] LABORATORY RBC 3.51 (L) 4.00 - [facility] 5.21 [facility] x10(6)/[facility] LABORATORY Hemoglobin 10.2 (L) 11.7 - [facility] 15.5 gm/dL [facility] Hematocrit 30.4 (L) 35.7 - [facility] 45.8 % [facility] MCV 86.6 82.6 - [facility] 94.4 fL [facility] MCH 29.1 27.1 - [facility] 32.0 pg [facility] MCHC 33.6 31.7 - [facility] 35.0 gm/dL [facility] Platelets 342 145 - 357 [facility] x10(3)/[facility] LABORATORY RDWSD 57.8 (H) 37.0 - [facility] 46.0 [facility] LABORATORY RDWCV 18.7 (H) 11.5 - [facility] 14.1 % [facility] MPV 10.6 7.6 - 12.9 [facility] LABORATORY nRBC % Auto 0.0 % [facility] nRBC Abs Auto 0.000 0.000 - [facility] 0.000 [facility] x10(3)/[facility] LABORATORY Specimen Anatomical Collection Method Collection Time Receive d Time (Source) Location / / Volume Laterality Blood specimen 05/01/2020 5:11 AM 020 5:53 (specimen) EDT AM EDT Resulting Agency Comment Spec In Lab Moi Reyes MD HEMATOLOGY ORDERABLES Performing Organization Address City/State/[place] [address] (ABNORMAL) APTT (05/01/2020 5:11 AM EDT) P athologist Signature PTT 45 (H) 25 - 37 sec [facility] Comment: Results may be affected by the presence of interfering substances. Interpret Results with Caution. The PTT is NOT appropriate for heparin m onitoring. Use the Anti-Xa level for heparin monitoring (HEP UFH) or LMWH mon itoring (HEP LMW). A PTT less than 37 seconds generally indicates adequate hem ostasis. Specimen Anatomical Collection Method Collection Time Receive d Time (Source) Location / / Volume Laterality Blood specimen 05/01/2020 5:11 AM 020 5:53 (specimen) EDT AM EDT Resulting Agency Comment Spec In Lab Karina Lantigua MD HEMATOLOGY ORDERABLES Performing Organization Address City/State/[place] [address] (ABNORMAL) Prothrombin Time (05/01/2020 5:11 AM EDT) P athologist Signature PT 32.8 (H) 9.4 - 12.5 [facility] LABORATORY Comment: Results may be affected by the presence of interfering substances. Interpret Results with Caution. INR 2.9 [facility] LABORATORY Comment: Results may be affected by the presence of interfering substances. Interpret Results with Caution. An INR <2.0 indicates adequate procoagul ant [...] Location / / Volume Laterality Blood specimen 05/01/2020 5:11 AM 020 5:53 (specimen) EDT AM EDT Resulting Agency Comment Spec In Lab Karina Lantigua MD HEMATOLOGY ORDERABLES Performing Organization Address City/State/ZIP Code Phon e Number [address] Phosphorus (05/01/2020 5:11 AM EDT) P athologist Signature Phosphorus 2.9 2.5 - 4.5 [facility] mg/dL [facility]OR[facility]ORY Specimen Anatomical Collection Method Collection Time Receive d Time (Source) Location / / Volume Laterality Blood specimen 05/01/2020 5:11 AM 020 5:53 (specimen) EDT AM EDT Resulting Agency Comment Spec In Lab Karina Lantigua MD CHEMISTRY ORDERABLES Performing Organization Address City/State/ZIP Code Phon e Number [address] Magnesium (05/01/2020 5:11 AM EDT) P athologist Signature Magnesium 0.97 0.69 - 1.07 [facility] mmol/L [facility]OR[facility]ORY Specimen Anatomical Collection Method Collection Time Receive d Time (Source) Location / / Volume Laterality Blood specimen 05/01/2020 5:11 AM 020 5:53 (specimen) EDT AM EDT Resulting Agency Comment Spec In Lab Karina Lantigua MD CHEMISTRY ORDERABLES Performing Organization Address City/State/[place] [address] (ABNORMAL) Comprehensive metabolic panel (non-fasting) (05/01/2020 5:11 AM EDT) P athologist Signature Glucose Lvl 148 65 - 199 [facility] mg/dL [facility] Comment: Diabetes: >=200 mg/dL plus symp toms BUN 6 (L) 8 - 18 mg/dL [facility] LABORATORY Creatinine 0.69 (L) 0.70 - 1.20 mg/dL [facility] LABORATORY Comment: Corrected for Bilirubin interference verified by dilution Sodium 133 (L) 135 - 145 mmol/L [facility] LABORATORY Potassium 4.1 3.5 - 5.0 mmol/L [facility]ORY Comment: Please note: ??Patients with WBC >100,00 0 may have falsely elevated Potassium levels. ??For accurate Potassium quantif ication in these patients send serum separator tube (gold top) for subsequent determinations. ??Contact the Clinical Chemistry Laboratory if there are any qu estions. Chloride 100 98 - 107 mmol/L [facility] CO2 24 22 - 31 mmol/L [facility] Anion Gap 9 5 - 15 mmol/L [facility] Calcium 8.5 8.5 - 10.5 mg/dL [facility]OR[facility]ORY Total Protein 5.1 (L) 6.1 - 8.0 gm/dL [facility] LABOR[facility] Comment: Corrected for Bilirubin interference verified by dilution Albumin 2.6 (L) 3.2 - 5.2 gm/dL [facility] AST 178 (H) 0 - 30 unit/L [facility] ALT 27 0 - 30 unit/L [facility] Alk Phos 127 (H) 35 - 105 unit/L [facility] Total Bilirubin 21.2 (H) 0.2 - 1.3 mg/dL [facility] LABORATORY Estimated GFR 108 >=60 mL/min/1.73 m?? [facility] Comment: The eGFR was calculated using the CKD-EP I equation. As with all creatinine based estimates of kidney function, eGFR values calculated with the CKD-EPI equation are not accurate in patients wi th acute kidney failure, extremes of body mass or the acutely ill. [email or web address] [email or web address] eGFR 125 >=60 mL/min/1.73 m?? [facility] Comment: The eGFR was calculated using the CKD-EP I equation. As with all creatinine based estimates of kidney function, eGFR values calculated with the CKD-EPI equation are not accurate in patients wi th acute kidney failure, extremes of body mass or the acutely ill. [email or web address] Specimen Anatomical Collection Method Collection Time Receive d Time (Source) Location / / Volume Laterality Blood specimen 05/01/2020 5:11 AM 020 5:53 (specimen) EDT AM EDT Resulting Agency Comment Spec In Lab Karina Lantigua MD CHEMISTRY ORDERABLES Performing Organization Address City/State/[place] [address] Scan, Peripheral Blood (04/30/2020 10:24 AM EDT) [facility] gist Method Time Signature Plat Estimate Increased [facility] RBC Morphology Abnormal [facility] Microcytes 1-5 /HPF [facility] Hypochromia Slight [facility] Polychromasia Present >5/HPF [facility] Ovalocytes 1-5 /HPF [facility] Target Cells 6-10 /HPF [facility] [place] Cells 1-5 /HPF [facility] Platelet Clumps Present [facility] Specimen Anatomical Collection Method Collection Time Receive d Time (Source) Location / / Volume Laterality Blood specimen 04/30/2020 10:24 0 (specimen) AM EDT 10:32 AM EDT Resulting Agency Comment Spec In Lab Isha Franklin MD HEMATOLOGY ORDERABLES Performing Organization Address City/State/[place] [address] (ABNORMAL) Differential, Automated (04/30/2020 10:24 AM EDT) [facility] Method Time Signature Neutrophils % 86.9 % [facility]OR[facility]ORY Neutr Abs (ANC) 26.69 (H) 1.70 - [facility] 6.10 [facility] x10(3)/[facility] LABORATORY Lymphocytes % 4.2 % [facility]OR[facility]ORY Lymphocytes Abs 1.3 0.9 - 3.2 [facility] x10(3)/[facility] LABORATORY Monocytes % 6.9 % [facility]OR[facility]ORY Monocyte Abs 2.1 (H) 0.3 - 0.9 [facility] x10(3)/[facility] LABORATORY Eosinophils % 0.8 % [facility]OR[facility]ORY Eosinophils Abs 0.2 0.0 - 0.4 [facility] x10(3)/[facility] LABORATORY Basophils % 0.4 % [facility] Basophils Abs 0.1 0.0 - 0.1 [facility] x10(3)/[facility] LABORATORY Immature Gran % 0.80 % [facility] Comment: Immature granulocytes(IG's)percentage an d absolute count will include metamyelocytes, myelocytes, and promyelo cytes. Blood smears from CBCs yielding IG's will be scanned manually for concor dance. If this scan disagrees with the automated IG or if promyelocytes are not ed, a manual differential will be performed. Josey Gran Abs 0.26 (H) 0.00 - 0.04 x10(3)/[facility] LABORATORY Specimen Anatomical Collection Method Collection Time Receive d Time (Source) Location / / Volume Laterality Blood specimen 04/30/2020 10:24 0 (specimen) AM EDT 10:32 AM EDT Resulting Agency Comment Spec In Lab Isha Franklin MD HEMATOLOGY ORDERABLES Performing Organization Address City/State/[place] [address] (ABNORMAL) Hemogram (04/30/2020 10:24 AM EDT) P athologist Signature WBC 30.7 4.0 - 9.5 [facility] (Critical) x10(3)/[facility] LABORATORY Comment: This result has been called to ANDREW ACKERMAN by KATHLEEN WILLIS on 04 30 2020 at 1050, and has been read back. RBC 3.51 (L) 4.00 - 5.21 x10(6)/[facility] LABORATORY Hemoglobin 10.2 (L) 11.7 - 15.5 gm/dL [facility] LABORATORY Hematocrit 30.5 (L) 35.7 - 45.8 % [facility]OR[facility] MCV 86.9 82.6 - 94.4 fL [facility] MCH 29.1 27.1 - 32.0 pg [facility]ORATORY MCHC 33.4 31.7 - 35.0 gm/dL [facility] LABORATORY Platelets 381 (H) 145 - 357 x10(3)/[facility] LABORATORY RDWSD 57.2 (H) 37.0 - 46.0 [facility] LABORATORY RDWCV 18.5 (H) 11.5 - 14.1 % [facility] LABORATORY MPV 10.2 7.6 - 12.9 fL [facility] LABOR[facility]ORY nRBC % Auto 0.0 % [facility] LABORATORY nRBC Abs Auto 0.000 0.000 - 0.000 x10(3)/[facility] LABORATORY Specimen Anatomical Collection Method Collection Time Receive d Time (Source) Location / / Volume Laterality Blood specimen 04/30/2020 10:24 0 (specimen) AM EDT 10:32 AM EDT Resulting Agency Comment Spec In Lab Isha Franklin MD HEMATOLOGY ORDERABLES Performing Organization Address City/State/[place] [address] (ABNORMAL) APTT (04/30/2020 10:24 AM EDT) athologist Signature PTT 45 (H) 25 - 37 sec [facility] Comment: Results may be affected by the presence of interfering substances. Interpret Results with Caution. The PTT is NOT appropriate for heparin m onitoring. Use the Anti-Xa level for heparin monitoring (HEP UFH) or LMWH mon itoring (HEP LMW). A PTT less than 37 seconds generally indicates adequate hem ostasis. Specimen Anatomical Collection Method Collection Time Receive d Time (Source) Location / / Volume Laterality Blood specimen 04/30/2020 10:24 0 (specimen) AM EDT 10:32 AM EDT Resulting Agency Comment Spec In Lab Karina Lantigua MD HEMATOLOGY ORDERABLES Performing Organization Address [facility] [place] [address] (ABNORMAL) Prothrombin Time (04/30/2020 10:24 AM EDT) athologist Signature PT 32.4 (H) 9.4 - 12.5 [facility] LABORATORY INR 2.8 [facility] Comment: An INR <2.0 indicates [...] Location / / Volume Laterality Blood specimen 04/30/2020 10:24 0 (specimen) AM EDT 10:32 AM EDT Resulting Agency Comment Spec In Lab Karina Lantigua MD HEMATOLOGY ORDERABLES Performing Organization Address [facility] [place] [address] (ABNORMAL) Comprehensive metabolic panel (non-fasting) (04/30/2020 10:24 AM EDT) athologist Signature Glucose Lvl 137 65 - 199 [facility] mg/dL [facility] Comment: Diabetes: >=200 mg/dL plus symp toms BUN 5 (L) 8 - 18 mg/dL [facility] Creatinine 0.66 (L) 0.70 - 1.20 mg/dL [facility] LABORATORY Sodium 134 (L) 135 - 145 mmol/L [facility] Potassium 3.4 (L) 3.5 - 5.0 mmol/L [facility] Comment: Please note: ??Patients with WBC >100,00 0 may have falsely elevated Potassium levels. ??For accurate Potassium quantif ication in these patients send serum separator tube (gold top) for subsequent determinations. ??Contact the Clinical Chemistry Laboratory if there are any qu estions. Chloride 99 98 - 107 mmol/L [facility] CO2 23 22 - 31 mmol/L [facility] Anion Gap 12 5 - 15 mmol/L [facility] Calcium 8.4 (L) 8.5 - 10.5 mg/dL [facility] Total Protein 5.7 (L) 6.1 - 8.0 gm/dL [facility] Albumin 2.6 (L) 3.2 - 5.2 gm/dL [facility] AST 205 (H) 0 - 30 unit/L [facility] ALT 25 0 - 30 unit/L [facility] Alk Phos 119 (H) 35 - 105 unit/L [facility] Total Bilirubin 21.5 (H) 0.2 - 1.3 mg/dL [facility] Estimated GFR 110 >=60 mL/min/1.73 m?? [facility] Comment: The eGFR was calculated using the CKD-EP I equation. As with all creatinine based estimates of kidney function, eGFR values calculated with the CKD-EPI equation are not accurate in patients wi th acute kidney failure, extremes of body mass or the acutely ill. [email or web address] [email or web address] eGFR 127 >=60 mL/min/1.73 m?? [facility] Comment: The eGFR was calculated using the CKD-EP I equation. As with all creatinine based estimates of kidney function, eGFR values calculated with the CKD-EPI equation are not accurate in patients wi th acute kidney failure, extremes of body mass or the acutely ill. [email or web address] Specimen Anatomical Collection Method Collection Time Receive d Time (Source) Location / / Volume Laterality Blood specimen 04/30/2020 10:24 0 (specimen) AM EDT 10:32 AM EDT Resulting Agency Comment Spec In Lab Karina Lantigua MD CHEMISTRY ORDERABLES Performing Organization Address City/State/[place] [address] (ABNORMAL) Differential, Automated (04/29/2020 3:58 AM EDT) [facility] gist Method Time Signature Neutrophils % 83.1 % [facility] Neutr Abs (ANC) 24.25 (H) 1.70 - [facility] 6.10 [facility] x10(3)/[facility] LABORATORY Lymphocytes % 7.1 % [facility] Lymphocytes Abs 2.1 0.9 - 3.2 [facility] x10(3)/[facility] LABORATORY Monocytes % 7.5 % [facility]ORY Monocyte Abs 2.2 (H) 0.3 - 0.9 [facility] x10(3)/[facility] LABORATORY Eosinophils % 1.0 % [facility] Eosinophils Abs 0.3 0.0 - 0.4 [facility] x10(3)/[facility] LABORATORY Basophils % 0.6 % [facility] Basophils Abs 0.2 (H) 0.0 - 0.1 [facility] x10(3)/[facility] LABORATORY Immature Gran % 0.70 % [facility] Comment: Immature granulocytes(IG's)percentage an d absolute count will include metamyelocytes, myelocytes, and promyelo cytes. Blood smears from CBCs yielding IG's will be scanned manually for concor dance. If this scan disagrees with the automated IG or if promyelocytes are not ed, a manual differential will be performed. Josey Gran Abs 0.21 (H) 0.00 - 0.04 x10(3)/[facility] LABORATORY Specimen Anatomical Collection Method Collection Time Receive d Time (Source) Location / / Volume Laterality Blood specimen 04/29/2020 3:58 AM 020 4:05 (specimen) EDT AM EDT Resulting Agency Comment Spec In Lab Evin Mckeon DO HEMATOLOGY ORDERABLES Performing Organization Address City/State/ZIP Code Phon e Number [place] [id number] Drive (ABNORMAL) Hemogram (04/29/2020 3:58 AM EDT) Analysis Performed At Patho logist Time Signature WBC 29.2 (H) 4.0 - 9.5 [facility] x10(3)/[facility] LABORATORY RBC 3.30 (L) 4.00 - [facility] 5.21 [facility] x10(6)/[facility] LABORATORY Hemoglobin 9.8 (L) 11.7 - [facility] 15.[facility] gm/dL [facility] Hematocrit 28.3 (L) 35.7 - [facility] [place] 45.8 % [facility] MCV 85.8 82.6 - [facility] 94.4 [facility] LABORATORY MCH 29.7 27.1 - [facility] [place] 32.0 pg [facility] MCHC 34.6 31.7 - [facility] 35.0 gm/dL [facility] Platelets 465 (H) 145 - 357 [facility] x10(3)/[facility] LABORATORY RDWSD 57.1 (H) 37.0 - [facility] 46.0 [facility] LABORATORY RDWCV 18.6 (H) 11.5 - [facility] [place] 14.1 % [facility] MPV 10.1 7.6 - 12.9 [facility] LABORATORY nRBC % Auto 0.0 % [facility] LABORATORY nRBC Abs Auto 0.000 0.000 - [facility] 0.000 [facility] x10(3)/[facility] HOSPITAL LABORATORY Specimen Anatomical Collection Method Collection Time Receive d Time (Source) Location / / Volume Laterality Blood specimen 04/29/2020 3:58 AM 020 4:05 (specimen) EDT AM EDT Resulting Agency Comment Spec In Lab Evin Mckeon DO HEMATOLOGY ORDERABLES Performing Organization Address City/State/[place] [address] (ABNORMAL) CMP w/fasting Glucose (04/29/2020 3:58 AM EDT) athologist Signature Glucose 95 65 - 99 [facility] Fasting mg/dL [facility] Comment: ?Fasting* Glucose Interpretive C riteria Normal ?65-99 mg/dL Impaired Fasting glucose ?100-125 mg/dL Consistent with Diabetes Mellitus ? >or= 126 mg/dL *Fasting is defined as no caloric intake for at least 8 hours In the absence of unequivocal hypergly cemia a plasma glucose value of >or= 126 mg/dL should be repeated on a subseq uent day. Diagnosis and Classification of Diabetes Mellitus, Position Statement from the [place] [employer]. ??Diabete s Care, Volume 33, Supplement 1, Aug 2009 BUN 7 (L) 8 - 18 mg/dL [facility] LAB[facility]ATORY Creatinine 0.70 0.70 - 1.20 mg/dL [facility] LABORATORY Sodium 135 135 - 145 mmol/L [facility] LABORATORY Potassium 3.5 3.5 - 5.0 mmol/L [facility] LABORATORY Comment: Please note: ??Patients with WBC >100,00 0 may have falsely elevated Potassium levels. ??For accurate Potassium quantif ication in these patients send serum separator tube (gold top) for subsequent determinations. ??Contact the Clinical Chemistry Laboratory if there are any qu estions. Chloride 101 98 - 107 mmol/L [facility] CO2 24 22 - 31 mmol/L [facility] Anion Gap 10 5 - 15 mmol/L [facility] Calcium 8.3 (L) 8.5 - 10.5 mg/dL [facility] LABORATORY Total Protein 5.0 (L) 6.1 - 8.0 gm/dL [facility] Albumin 2.7 (L) 3.2 - 5.2 gm/dL [facility] AST 171 (H) 0 - 30 unit/L [facility] ALT 26 0 - 30 unit/L [facility] Alk Phos 110 (H) 35 - 105 unit/L [facility] Total Bilirubin 19.7 (H) 0.2 - 1.3 mg/dL [facility] LAB[facility] Estimated GFR 108 >=60 mL/min/1.73 m?? [facility] Comment: The eGFR was calculated using the CKD-EP I equation. As with all creatinine based estimates of kidney function, eGFR values calculated with the CKD-EPI equation are not accurate in patients wi th acute kidney failure, extremes of body mass or the acutely ill. [email or web address] eGFR 125 >=60 mL/min/1.73 m?? [facility] Comment: The eGFR was calculated using the CKD-EP I equation. As with all creatinine based estimates of kidney function, eGFR values calculated with the CKD-EPI equation are not accurate in patients wi th acute kidney failure, extremes of body mass or the acutely ill. [email or web address] Specimen Anatomical Collection Method Collection Time Receive d Time (Source) Location / / Volume Laterality Blood specimen 04/29/2020 3:58 AM 020 4:06 (specimen) EDT AM EDT Resulting Agency Comment Spec In Lab Mikey Mtz MD CHEMISTRY ORDERABLES Performing Organization Address City/State/[place] [address] (ABNORMAL) APTT (04/29/2020 3:58 AM EDT) P athologist Signature PTT 47 (H) 25 - 37 sec [facility] Comment: The PTT is NOT appropriate for heparin m onitoring. Use the Anti-Xa level for heparin monitoring (HEP UFH) or LMWH mon itoring (HEP LMW). A PTT less than 37 seconds generally indicates adequate hem ostasis. Specimen Anatomical Collection Method Collection Time Receive d Time (Source) Location / / Volume Laterality Blood specimen 04/29/2020 3:58 AM 020 4:06 (specimen) EDT AM EDT Resulting Agency Comment Spec In Lab Mikey Mtz MD HEMATOLOGY ORDERABLES Performing Organization Address [facility] Phon e Number [address] (ABNORMAL) Prothrombin Time (04/29/2020 3:58 AM EDT) P athologist Signature PT 31.4 (H) 9.4 - 12.5 [facility] LABORATORY INR 2.7 [facility] Comment: An INR <2.0 indicates [...] Location / / Volume Laterality Blood specimen 04/29/2020 3:58 AM 020 4:06 (specimen) EDT AM EDT Resulting Agency Comment Spec In Lab Mikey Mtz MD HEMATOLOGY ORDERABLES Performing Organization Address City/[facility]/ZIP [facility] [place] [address] (ABNORMAL) Urinalysis Microscopic Exam (04/28/2020 6:17 PM EDT) Patholo gist Method Time Signature RBC UA 6 (H) 0 - 4 [facility] /[facility] LABORATORY WBC UA 4 0 - 5 [facility] /[facility] LABORATORY Bacteria UA Moderate (A) None /HPF [facility]ORY Squam Epith 28 (H) <=4 /HPF [facility] LABORATORY Gran Cast UA 2 (H) <=0 /LPF [facility]OR[facility]ORY Specimen (Source) Anatomical Collection Method Collection Time Re ceived Time Location / / Volume Laterality Urine specimen 04/28/2020 6:17 04/28/2020 6:37 obtained by clean PM EDT PM EDT catch procedure (specimen) Resulting Agency Comment Spec In Lab Moi Reyes MD URINE ORDERABLES Performing Organization Address City/[facility]/ZIP Code Phon e Number [address] Sodium, urine, random (04/28/2020 6:17 PM EDT) P athologist Signature U Sodium <20 mmol/L [facility]ORY Specimen Anatomical Collection Method Collection Time Receive d Time (Source) Location / / Volume Laterality Urine specimen 04/28/2020 6:17 PM 020 6:37 (specimen) EDT PM EDT Resulting Agency Comment Spec In Lab Karina Lantigua MD URINE ORDERABLES Performing Organization Address City/State/[place] [address] (ABNORMAL) Urinalysis with reflex Culture (04/28/2020 6:17 PM EDT) P athologist Signature Glucose UA See Note Negative [facility] Comment: Unable to perform chemistry dom ting due to interfering substances. Protein UA See Note Negative [facility]ORY Comment: Unable to perform chemistry dom ting due to interfering substances. Bilirubin UA See Note Negative [facility] Comment: Clinical correlation required for positi ve Urine Bilirubin results as false positive may occur with some drugs and d rug related products. If a false positive is suspected a serum total bili barr should be considered if clinically indicated. Unable to perform chemistry testing due to interfering substances. Urobilinogen UA See Note Normal [facility] Comment: Unable to perform chemistry dom ting due to interfering substances. pH UA See Note 5.0 - 8.0 [facility] Comment: Unable to perform chemistry dom ting due to interfering substances. Blood UA See Note Negative [facility] Comment: Unable to perform chemistry dom ting due to interfering substances. Ketones UA See Note Negative [facility] Comment: Unable to perform chemistry dom ting due to interfering substances. Nitrite UA See Note Negative [facility] Comment: Unable to perform chemistry dom ting due to interfering substances. Leukocytes UA See Note Negative [facility] Comment: Unable to perform chemistry dom ting due to interfering substances. Appearance UA See Note Clear [facility] Comment: Unable to perform chemistry dom ting due to interfering substances. Spec [place] UA See Note 1.006 - 1.030 [facility] Comment: Unable to perform chemistry dom ting due to interfering substances. Color UA [place] (A) [facility] Comment: Unable to perform chemistry dom ting due to interfering substances. Culture Reflexed No [facility] LABORATORY Specimen (Source) Anatomical Collection Method Collection Time Re ceived Time Location / / Volume Laterality Urine specimen 04/28/2020 6:17 04/28/2020 6:37 obtained by clean PM EDT PM EDT catch procedure (specimen) Resulting Agency Comment Spec In Lab Karina Lantigua MD URINE ORDERABLES Performing Organization Address City/State/[place] [address] IR Paracentesis (04/28/2020 9:15 AM EDT) Anatomical Region Laterality Modality Abdomen X-Ray Angiography Specimen (Source) Anatomical Location Collection Method / Collectio n Time Received Time / Laterality Volume Narrative 04/28/2020 3:35 PM EDT IR PROCEDURE NOTE : ??US-guided paracentesis Indication : ?? Ascites, abdominal diste nsion. Volume overload. ??Alcoholic hepatitis. Technique: After discussing risks (inclu ding infection and hemorrhage), and benefits, patient consented to the p rocedure. Maximal sterile barrier technique was utilized throughout the pr ocedure. ??Pulse, blood pressure and oxygen saturation were monitored thr oughout the procedure. ?? Abdominal free fluid fluid collection wa s localized right flank with US. ?? After sterile preparation of the overlyi ng skin, 7 cc 1% lidocaine SQ was administered for anesthesia, and an 18 g a needle was advanced under US guidance into the collection. Over an .0 35 inch wire, needle was removed, and 6.3 Fr catheter advanced. ??Position confirmed with US. ??Attached to vaccuum assisted drainage. ??Catheter re moved and hemostasis obtained. ?? Patient tolerated the procedure well. ?? There were no immediate complications. EBL : 0 cc Findings: ??ascites, 2800 cc serous yell ow fluid aspirated. Specimen submitted for requested labs. Impression: Technically successful parac entesis. Attending: ??I, Dr. Nazario, was present throughout the procedure. I was present during the intraservice ti me as documented by the IR Nurse. ?? Karina Lantigua MD IMG IR ORDERABLES Anaerobic Culture (04/28/2020 9:13 AM EDT) [facility] gist Method Time Signature Anaerobic No anaerobic [facility] Culture organisms [facility] LABORATORY Specimen (Source) Anatomical Collection Method Collection Time Re ceived Time Location / / Volume Laterality Specimen from 04/28/2020 9:13 04/28/2020 abdominal cavity AM EDT 10:11 AM ED T (specimen) Resulting Agency Comment Spec In Lab Karina Lantigua MD MICROBIOLOGY - GENERAL ORDER MARK Performing Organization Address City/[facility]/ZIP [facility] [place] [place] [address] Body Fluid Culture, Aerobic (04/28/2020 9:13 AM EDT) Component Value Ref Test Analysis Performed At [facility] Minded Range Method Time Signature Body Fluid No growth [place] Culture [facility] LABORATORY Gram Stain Cytocentrifuge Gram Stain performed [facility] No Neutrophils seen. [place] No microorganisms seen. [facility] LABORATORY Specimen (Source) Anatomical Collection Method Collection Time Re ceived Time Location / / Volume Laterality Specimen from 04/28/2020 9:13 04/28/2020 abdominal cavity AM EDT 10:11 AM ED T (specimen) Resulting Agency Comment Spec In Lab Karina Lantigua MD MICROBIOLOGY - GENERAL ORDER MARK Performing Organization Address City/[facility]/[place] [address] Cell Count Body Fluid Ascites Fluid (04/28/2020 9:13 AM EDT) [facility] gist Method Time Signature Spec Type BF Ascites Fl [facility] Color BF Yellow [facility]ORY Appearance BF Clear [facility]ORATORY WBC BF Ct 58 /[facility] LABORATORY Comment: Guideline listed below apply to all body fluids. When Body Fluid WBC count is greater pat n Zero, a smear is made and scanned. All scan information is correlated with numeric results prior to being released to patients chart. The reference interval(s) and other meth od performance specifications have not been established for this body fluid. Th e test result must be integrated into the clinical context for interpretation. Polymorph % 12 % [facility] LABORATORY Comment: Polymorphonuclear cell percent and absol [place] values may contain Neutrophils, Eosinophils, and Basophils. Body fluid s mear will be scanned manually for concordance. Mononuc % 88 % [facility] LABORATORY Comment: Rare RBC phagocytosis present Rare WBC p hagocytosis present Mononuclear cell percent and absolute va lues may contain Lymphocytes and Monocytes. Body fluid smear will be scan aminah manually for concordance. Polymorph BF ABS 7 /[facility] LABORATORY Comment: Polymorphonuclear cell percent and absol [place] values may contain Neutrophils, Eosinophils, and Basophils. Body fluid s mear will be scanned manually for concordance. Mononuc ABS 51 /[facility] LABORATORY Comment: Mononuclear cell percent and absolute va lues may contain Lymphocytes and Monocytes. Body fluid smear will be scan aminah manually for concordance. Specimen (Source) Anatomical Collection Method Collection Time Re ceived Time Location / / Volume Laterality Peritoneal fluid 04/28/2020 9:13 04/28/20 20 9:23 specimen AM EDT AM EDT (specimen) Resulting Agency Comment Spec In Lab Karina Lantigua MD BODY FLUIDS AND STOOLS ORDER MARK Performing Organization Address City/State/[place] [address] Scan, Peripheral Blood (04/28/2020 5:21 AM EDT) [facility] Method Time Signature Plat Estimate Increased [facility] RBC Morphology Abnormal [facility] Hypochromia Slight [facility]ORY Target Cells 1-5 /HPF [facility] LABORATORY [place] Cells 1-5 /HPF [facility] LABOR[facility]ORY Dohle Bodies Present [facility]OR[facility] Giant Platelets Less than 1 /HPF [facility]ORATORY Specimen Anatomical Collection Method Collection Time Receive d Time (Source) Location / / Volume Laterality Blood specimen 04/28/2020 5:21 AM 020 5:37 (specimen) EDT AM EDT Resulting Agency Comment Spec In Lab Evin Mckeon DO HEMATOLOGY ORDERABLES Performing Organization Address City/State/[place] [address] (ABNORMAL) Differential, Automated (04/28/2020 5:21 AM EDT) [facility] Method Time Signature Neutrophils % 83.2 % [facility] LABORATORY Neutr Abs (ANC) 20.08 (H) 1.70 - [facility] 6.10 [facility] x10(3)/[facility] LABORATORY Lymphocytes % 6.0 % [facility] LABORATORY Lymphocytes Abs 1.4 0.9 - 3.2 [facility] x10(3)/[facility] LABORATORY Monocytes % 8.1 % [facility] LABORATORY Monocyte Abs 2.0 (H) 0.3 - 0.9 [facility] x10(3)/[facility] LABORATORY Eosinophils % 1.3 % [facility] LABORATORY Eosinophils Abs 0.3 0.0 - 0.4 [facility] x10(3)/[facility] LABORATORY Basophils % 0.7 % [facility] LABORATORY Basophils Abs 0.2 (H) 0.0 - 0.1 [facility] x10(3)/[facility] LABORATORY Immature Gran % 0.70 % [facility]ATORY Comment: Immature granulocytes(IG's)percentage an d absolute count will include metamyelocytes, myelocytes, and promyelo cytes. Blood smears from CBCs yielding IG's will be scanned manually for malia pérez. If this scan disagrees with the automated IG or if promyelocytes are not ed, a manual differential will be performed. Josey Gran Abs 0.18 (H) 0.00 - 0.04 x10(3)/[facility] LABORATORY Specimen Anatomical Collection Method Collection Time Receive d Time (Source) Location / / Volume Laterality Blood specimen 04/28/2020 5:21 AM 020 5:37 (specimen) EDT AM EDT Resulting Agency Comment Spec In Lab Evin E Linda DO HEMATOLOGY ORDERABLES Performing Organization Address City/State/ZIP Code Phon e Number [place] [id number]OS[address] LAB[address]ORY Drive (ABNORMAL) Hemogram (04/28/2020 5:21 AM EDT) Analysis Performed At Patho logist Time Signature WBC 24.1 (H) 4.0 - 9.5 [facility] x10(3)/[facility] LABORATORY RBC 3.40 (L) 4.00 - [facility] 5.21 [facility] x10(6)/[facility] LABORATORY Hemoglobin 9.8 (L) 11.7 - [facility] 15.[facility] gm/dL [facility] Hematocrit 29.9 (L) 35.7 - [facility] 45.8 % [facility] MCV 87.9 82.6 - [facility] 94.4 [facility] LABORATORY MCH 28.8 27.1 - [facility] [place] 32.0 pg [facility] MCHC 32.8 31.7 - [facility] 35.0 gm/dL [facility] Platelets 442 (H) 145 - 357 [facility] x10(3)/[facility] [place] [facility] RDWSD 57.8 (H) 37.0 - [facility] 46.0 [facility] LABORATORY RDWCV 18.6 (H) 11.5 - [facility] 14.1 % [facility] MPV 10.1 7.6 - 12.9 [facility] LABORATORY nRBC % Auto 0.0 % [facility] LABORATORY nRBC Abs Auto 0.000 0.000 - [facility] 0.000 [facility] x10(3)/[facility] LABORATORY Specimen Anatomical Collection Method Collection Time Receive d Time (Source) Location / / Volume Laterality Blood specimen 04/28/2020 5:21 AM 020 5:37 (specimen) EDT AM EDT Resulting Agency Comment Spec In Lab Evin Mckeon DO HEMATOLOGY ORDERABLES Performing Organization Address City/State/[place] [address] (ABNORMAL) CMP w/fasting Glucose (04/28/2020 5:21 AM EDT) athologist Signature Glucose 107 (H) 65 - 99 [facility] Fasting mg/dL [facility] Comment: ?Fasting* Glucose Interpretive C riteria Normal ?65-99 mg/dL Impaired Fasting glucose ?100-125 mg/dL Consistent with Diabetes Mellitus ? >or= 126 mg/dL *Fasting is defined as no caloric intake for at least 8 hours In the absence of unequivocal hypergly cemia a plasma glucose value of >or= 126 mg/dL should be repeated on a subseq uent day. Diagnosis and Classification of Diabetes Mellitus, Position Statement from the [place] [employer]. ??Diabete s Care, Volume 33, Supplement 1, Aug 2009 BUN 8 8 - 18 mg/dL [facility] LABORATORY Creatinine 1.02 0.70 - 1.20 mg/dL [facility] LABORATORY Comment: Corrected for Bilirubin interference verfied by dilution Sodium 134 (L) 135 - 145 mmol/L [facility] LABORATORY Potassium 3.3 (L) 3.5 - 5.0 mmol/L [facility] LABORATORY Comment: Please note: ??Patients with WBC >100,00 0 may have falsely elevated Potassium levels. ??For accurate Potassium quantif ication in these patients send serum separator tube (gold top) for subsequent determinations. ??Contact the Clinical Chemistry Laboratory if there are any qu estions. Chloride 100 98 - 107 mmol/L [facility] LABORATORY CO2 23 22 - 31 mmol/L [facility] LABOR[facility] Anion Gap 11 5 - 15 mmol/L [facility] LABORATORY Calcium 8.1 (L) 8.5 - 10.5 mg/dL [facility] LABORATORY Total Protein 5.0 (L) 6.1 - 8.0 gm/dL [facility] LABORATORY Comment: Corrected for Bilirubin interference verfied by dilution Albumin 2.2 (L) 3.2 - 5.2 gm/dL [facility] LABOR[facility] AST 175 (H) 0 - 30 unit/L [facility]OR[facility] ALT 28 0 - 30 unit/L [facility] Alk Phos 118 (H) 35 - 105 unit/L [facility] Total Bilirubin 18.1 (H) 0.2 - 1.3 mg/dL [facility] LABORATORY Estimated GFR 68 >=60 mL/min/1.73 m?? [facility] Comment: The eGFR was calculated using the CKD-EP I equation. As with all creatinine based estimates of kidney function, eGFR values calculated with the CKD-EPI equation are not accurate in patients wi th acute kidney failure, extremes of body mass or the acutely ill. [email or web address] [email or web address] eGFR 79 >=60 mL/min/1.73 m?? [facility] LABORATORY Comment: The eGFR was calculated using the CKD-EP I equation. As with all creatinine based estimates of kidney function, eGFR values calculated with the CKD-EPI equation are not accurate in patients wi th acute kidney failure, extremes of body mass or the acutely ill. [email or web address] Specimen Anatomical Collection Method Collection Time Receive d Time (Source) Location / / Volume Laterality Blood specimen 04/28/2020 5:21 AM 020 5:37 (specimen) EDT AM EDT Resulting Agency Comment Spec In Lab Mikey Mtz MD CHEMISTRY ORDERABLES Performing Organization Address City/State/ZIP Code Phon e Number [place] [id number] LAB[address]ORY Drive (ABNORMAL) APTT (04/28/2020 5:21 AM EDT) P athologist Signature PTT 46 (H) 25 - 37 sec [facility]OR[facility] Comment: The PTT is NOT appropriate for heparin m onitoring. Use the Anti-Xa level for heparin monitoring (HEP UFH) or LMWH mon itoring (HEP LMW). A PTT less than 37 seconds generally indicates adequate hem ostasis. Specimen Anatomical Collection Method Collection Time Receive d Time (Source) Location / / Volume Laterality Blood specimen 04/28/2020 5:21 AM 020 5:37 (specimen) EDT AM EDT Resulting Agency Comment Spec In Lab Mikey Mtz MD HEMATOLOGY ORDERABLES Performing Organization Address City/[facility]/ZIP Code Phon e Number [address] (ABNORMAL) Prothrombin Time (04/28/2020 5:21 AM EDT) P athologist Signature PT 30.2 (H) 9.4 - 12.5 [facility] LABORATORY INR 2.6 [facility] LABORAT[facility] Comment: An INR <2.0 indicates [...] Location / / Volume Laterality Blood specimen 04/28/2020 5:21 AM 020 5:37 (specimen) EDT AM EDT Resulting Agency Comment Spec In Lab Mikey Mtz MD HEMATOLOGY ORDERABLES Performing Organization Address City/[facility]/ZIP Code Phon e Number [address] (ABNORMAL) Differential, Automated (04/27/2020 4:35 AM EDT) Patholo gist Method Time Signature Neutrophils % 82.1 % [facility] LABORATORY Neutr Abs (ANC) 18.73 (H) 1.70 - [facility] 6.10 [facility] x10(3)/[facility] L LABORATORY Lymphocytes % 6.5 % [facility] LABORATORY Lymphocytes Abs 1.5 0.9 - 3.2 [facility] x10(3)/[facility] LABORATORY Monocytes % 9.0 % [facility] LABORATORY Monocyte Abs 2.0 (H) 0.3 - 0.9 [facility] x10(3)/[facility] LABORATORY Eosinophils % 1.0 % [facility] LABORATORY Eosinophils Abs 0.2 0.0 - 0.4 [facility] x10(3)/[facility] LABORATORY Basophils % 0.7 % [facility] LABORATORY Basophils Abs 0.2 (H) 0.0 - 0.1 [facility] x10(3)/[facility] LABORATORY Immature Gran % 0.70 % [facility] LABORATORY Comment: Immature granulocytes(IG's)percentage an d absolute count will include metamyelocytes, myelocytes, and promyelo cytes. Blood smears from CBCs yielding IG's will be scanned manually for concor dance. If this scan disagrees with the automated IG or if promyelocytes are not ed, a manual differential will be performed. Josey Gran Abs 0.15 (H) 0.00 - 0.04 x10(3)/[facility] LABORATORY Specimen Anatomical Collection Method Collection Time Receive d Time (Source) Location / / Volume Laterality Blood specimen 04/27/2020 4:35 AM 020 4:43 (specimen) EDT AM EDT Resulting Agency Comment Spec In Lab Evin Mckeon DO HEMATOLOGY ORDERABLES Performing Organization Address City/State/[place] [address] (ABNORMAL) Hemogram (04/27/2020 4:35 AM EDT) Analysis Performed At Patho logist Time Signature WBC 22.8 (H) 4.0 - 9.5 [facility] x10(3)/[facility] LABORATORY RBC 3.29 (L) 4.00 - [facility] 5.21 [facility] x10(6)/[facility] LABORATORY Hemoglobin 9.6 (L) 11.7 - [facility] 15.5 gm/dL [facility] Hematocrit 28.8 (L) 35.7 - [facility] 45.8 % [facility] MCV 87.5 82.6 - [facility] 94.4 [facility] LABORATORY MCH 29.2 27.1 - [facility] 32.0 pg [facility]ORAT[facility] MCHC 33.3 31.7 - [facility] 35.0 gm/dL [facility] Platelets 453 (H) 145 - 357 [facility] x10(3[facility] LABORATORY RDWSD 58.7 (H) 37.0 - [facility] 46.0 [facility] LABORATORY RDWCV 18.6 (H) 11.5 - [facility] 14.1 % [facility] LABORATORY MPV 10.3 7.6 - 12.9 [facility] LABORATORY nRBC % Auto 0.0 % [facility] LABORATORY nRBC Abs Auto 0.000 0.000 - [facility] 0.000 [facility] x10(3)/[facility] LABORATORY Specimen Anatomical Collection Method Collection Time Receive d Time (Source) Location / / Volume Laterality Blood specimen 04/27/2020 4:35 AM 020 4:43 (specimen) EDT AM EDT Resulting Agency Comment Spec In Lab Evin E Gale DO HEMATOLOGY ORDERABLES Performing Organization Address City/State/[place] [address] (ABNORMAL) CMP w/fasting Glucose (04/27/2020 4:35 AM EDT) P athologist Signature Glucose 103 (H) 65 - 99 [facility] Fasting mg/dL [facility] Comment: ?Fasting* Glucose Interpretive C riteria Normal ?65-99 mg/dL Impaired Fasting glucose ?100-125 mg/dL Consistent with Diabetes Mellitus ? >or= 126 mg/dL *Fasting is defined as no caloric intake for at least 8 hours In the absence of unequivocal hypergly cemia a plasma glucose value of >or= 126 mg/dL should be repeated on a subseq uent day. Diagnosis and Classification of Diabetes Mellitus, Position Statement from the [place] [employer]. ??Diabete s Care, Volume 33, Supplement 1, Aug 2009 BUN 7 (L) 8 - 18 mg/dL [facility] LABORATORY Creatinine 0.70 0.70 - 1.20 mg/dL [facility] LABORATORY Sodium 133 (L) 135 - 145 mmol/L [facility] LABORATORY Potassium 3.5 3.5 - 5.0 mmol/L [facility] LABORATORY Comment: Please note: ??Patients with WBC >100,00 0 may have falsely elevated Potassium levels. ??For accurate Potassium quantif ication in these patients send serum separator tube (gold top) for subsequent determinations. ??Contact the Clinical Chemistry Laboratory if there are any qu estions. Chloride 100 98 - 107 mmol/L [facility] LABORATORY CO2 24 22 - 31 mmol/L [facility] LABORATORY Anion Gap 9 5 - 15 mmol/L [facility] LABORATORY Calcium 8.0 (L) 8.5 - 10.5 mg/dL [facility] LABORATORY Total Protein 4.8 (L) 6.1 - 8.0 gm/dL [facility] LABORATORY Albumin 2.2 (L) 3.2 - 5.2 gm/dL [facility] LABORATORY AST 159 (H) 0 - 30 unit/L [facility] LABORATORY ALT 29 0 - 30 unit/L [facility] Alk Phos 122 (H) 35 - 105 unit/L [facility] LABORATORY Total Bilirubin 16.8 (H) 0.2 - 1.3 mg/dL [facility] LABORATORY Estimated GFR 108 >=60 mL/min/1.73 m?? [facility] LABOR[facility] Comment: The eGFR was calculated using the CKD-EP I equation. As with all creatinine based estimates of kidney function, eGFR values calculated with the CKD-EPI equation are not accurate in patients wi th acute kidney failure, extremes of body mass or the acutely ill. [email or web address] eGFR 125 >=60 mL/min/1.73 m?? [facility] LABOR[facility]ORY Comment: The eGFR was calculated using the CKD-EP I equation. As with all creatinine based estimates of kidney function, eGFR values calculated with the CKD-EPI equation are not accurate in patients wi th acute kidney failure, extremes of body mass or the acutely ill. [email or web address] Specimen Anatomical Collection Method Collection Time Receive d Time (Source) Location / / Volume Laterality Blood specimen 04/27/2020 4:35 AM 020 4:43 (specimen) EDT AM EDT Resulting Agency Comment Spec In Lab Mikey Mtz MD CHEMISTRY ORDERABLES Performing Organization Address City/[facility]/ZIP Code Phon e Number [address] (ABNORMAL) APTT (04/27/2020 4:35 AM EDT) P athologist Signature PTT 45 (H) 25 - 37 sec [facility]OR[facility] Comment: The PTT is NOT appropriate for heparin m onitoring. Use the Anti-Xa level for heparin monitoring (HEP UFH) or LMWH mon itoring (HEP LMW). A PTT less than 37 seconds generally indicates adequate hem ostasis. Specimen Anatomical Collection Method Collection Time Receive d Time (Source) Location / / Volume Laterality Blood specimen 04/27/2020 4:35 AM 020 4:43 (specimen) EDT AM EDT Resulting Agency Comment Spec In Lab Mikey Mtz MD HEMATOLOGY ORDERABLES Performing Organization Address City/[facility]/ZIP Code Phon e Number [address] (ABNORMAL) Prothrombin Time (04/27/2020 4:35 AM EDT) P athologist Signature PT 28.8 (H) 9.4 - 12.5 [facility] LABORATORY INR 2.5 [facility] LABORATORY Comment: An INR <2.0 indicates [...] Location / / Volume Laterality Blood specimen 04/27/2020 4:35 AM 020 4:43 (specimen) EDT AM EDT Resulting Agency Comment Spec In Lab Mikey Mtz MD HEMATOLOGY ORDERABLES Performing Organization Address City/State/[place] [address] COVID-19 PCR (04/26/2020 6:27 PM EDT) [facility] Method Time Signature SARS-CoV-2 Not Detected Not Detected [facility] RNA PCR [facility] LABORATORY Comment: This result should be interpreted [...] using the Simplexa COVID-19 Direct Assay by Stream[employer] moise as authorized by the FDA issued Emergency Use Authorization (EUA). This assay is intended for In-vitro Diagnostic (IVD) use with nasopharyngeal swabs collected from individuals meeting the CDC criteria for testing. Th e assay is performed based on the instructions for use and additional guid ance provided by the FDA. Testing is performed in the Microbiology Laboratory within the Department of Pathology and Laboratory Medicine at [facility], certified under the Clinical Laboratory Improvement Amendmen ts of 1987 (CLIA), 42 U.S.C. section 263a, to perform [...] the case of an invalid re sult. [facility] COVID-19 criteria for testing on hum an specimens and clinical management guidance information are available at [facility] CDC Coronavirus Disease 2019 (COVID-19) webpage under Information fo r Healthcare Professionals (https://www.cdc.gov/coronavirus/2019-nc ov/hcp/index.html). SARS-CoV-2 Source [employer] [facility] LABORATORY Specimen (Source) Anatomical Collection Method Collection Time Re ceived Time Location / / Volume Laterality Nasopharyngeal swab 04/26/2020 6:27 04/26 (specimen) PM EDT 7:21 PM EDT Comment: Symptoms->Surveillance Resulting Agency Comment Spec In Lab Mikey Mtz MD MICROBIOLOGY - GENERAL ORDER MARK Performing Organization Address City/State/[place] [address] XR Chest PA & Lateral (Generic) (04/26/2020 2:38 PM EDT) Anatomical Region Laterality Modality Chest N/A Digital Radiography Specimen (Source) Anatomical Location Collection Method / Collectio n Time Received Time / Laterality Volume Impressions 04/26/2020 2:41 PM EDT Linear atelectasis in the right midlung. Trace left pleural effusion. Thank you for letting us participate in the care of this patient. For questions regarding this report, please contact [facility] number below. ? Electronically signed by: CORNELIUS BOURNE DO [facility] ([phone]), at 04/26/2020 2:41 PM Narrative 04/26/2020 2:41 PM EDT EXAMINATION: XR CHEST PA AND LATERAL (GENERIC) CLINICAL HISTORY: persistent dry cough, suspicion is for hepatic hydrothorax but wish to assess for PNA TECHNIQUE: PA and lateral views of the chest COMPARISON: Chest x-ray dated 04/18/2020 FINDINGS: Linear atelectasis in the right midlung. Trace left pleural effusion. Cardiomediastinal silhouette is stable. No pulmonary vascular congestion, focal consolidation, or pneumothorax. Procedure Note Cornelius Bourne DO - 04/26/2020Formatti ng of this note might be different from the original. EXAMINATION: XR CHEST PA AND LATERAL (GE NERIC) CLINICAL HISTORY: persistent dry cough, suspicion is for hepatic hydrothorax but wish to assess for PNA TECHNIQUE: PA and lateral views of the chest COMPARISON: Chest x-ray dated 04/18/2020 FINDINGS: Linear atelectasis in the right midlung. Trace left pleural effusion. Cardiomediastinal silhouette is stable. No pulmonary vascular congestion, focal consolidation, or pneumothorax. IMPRESSION Linear atelectasis in the right midlung. Trace left pleural effusion. Thank you for letting us participate in the care of this patient. For questions regarding this report, please contact e number below. Electronically signed by: CORNELIUS BOURNE DO [facility] ([phone]), at 04/26/2020 2:41 PM Karina Lantigua MD IMG DX ORDERABLES (ABNORMAL) Urinalysis Microscopic Exam (04/26/2020 7:02 AM EDT) Analysis Performed At Patho logist Time Signature RBC UA 4 0 - 4 /HPF [facility] LABORATORY WBC UA 2 0 - 5 /HPF [facility] LABORATORY WBCs Clumping Rare (A) None /HPF [facility] LABOR[facility] Comment: Interpret results with caution, microsco pic results are from suboptimal specimen volume Bacteria UA Few (A) None /HPF [facility] LABORATORY Comment: Interpret results with caution, microsco pic results are from suboptimal specimen volume Squam Epith UA 2 <=4 /HPF [facility] LABORATORY Hyaline Cast UA 2 0 - 2 /LPF [facility] LABORATORY Gran Cast UA 2 (H) <=0 /LPF [facility] LABORATORY Comment: Interpret results with caution, microsco pic results are from suboptimal specimen volume Specimen (Source) Anatomical Collection Method Collection Time Re ceived Time Location / / Volume Laterality Urine specimen 04/26/2020 7:02 04/26/2020 obtained by clean AM EDT 11:15 AM E DT catch procedure (specimen) Resulting Agency Comment Spec In Lab Evin E Linda DO URINE ORDERABLES Performing Organization Address City/State/[place] [address] (ABNORMAL) Urinalysis with reflex Culture (04/26/2020 7:02 AM EDT) [facility] gist Method Time Signature Glucose UA Negative Negative [facility] mg/dL [facility] LABORATORY Protein UA Negative Negative [facility] mg/dL [facility] LABORATORY Bilirubin UA Moderate (A) Negative [facility] mg/dL [facility] LABORATORY Comment: Clinical correlation required for positi ve Urine Bilirubin results as false positive may occur with some drugs and d rug related products. If a false positive is suspected a serum total bili barr should be considered if clinically indicated. Urobilinogen UA Normal Normal mg/dL [facility] LABORATORY pH UA 7.5 5.0 - 8.0 [facility] LABORATORY Blood UA Small (A) Negative mg/dL [facility] LABORATORY Ketones UA Negative Negative mg/dL [facility] LABOR[facility]ORY Nitrite UA Negative Negative [facility] LABORATORY Leukocytes UA Trace (A) Negative [facility] LABORATORY Appearance UA Cloudy (A) Clear [facility] LABORATORY Spec [place] UA 1.007 1.006 - 1.030 [facility] LABORATORY Color UA Dark Yellow Yellow [facility] LABORATORY Culture Reflexed No [facility] LABORATORY Specimen (Source) Anatomical Collection Method Collection Time Re ceived Time Location / / Volume Laterality Urine specimen 04/26/2020 7:02 04/26/2020 obtained by clean AM EDT 11:15 AM E DT catch procedure (specimen) Resulting Agency Comment Spec In Lab Mikey Mtz MD URINE ORDERABLES Performing Organization Address City/State/[place] [address] (ABNORMAL) Differential, Automated (04/26/2020 6:35 AM EDT) [facility] gist Method Time Signature Neutrophils % 84.0 % [facility] LABORATORY Neutr Abs (ANC) 18.76 (H) 1.70 - [facility] 6.10 [facility] x10(3)/[facility] LABORATORY Lymphocytes % 5.1 % [facility] LABORATORY Lymphocytes Abs 1.2 0.9 - 3.2 [facility] x10(3)/[facility] LABORATORY Monocytes % 8.7 % [facility] LABORATORY Monocyte Abs 1.9 (H) 0.3 - 0.9 [facility] x10(3)/[facility] LABORATORY Eosinophils % 0.8 % [facility] LABORATORY Eosinophils Abs 0.2 0.0 - 0.4 [facility] x10(3)/[facility] LABORATORY Basophils % 0.6 % [facility] LABORATORY Basophils Abs 0.1 0.0 - 0.1 [facility] x10(3)/[facility] LABORATORY Immature Gran % 0.80 % [facility]ORY Comment: Immature granulocytes(IG's)percentage an d absolute count will include metamyelocytes, myelocytes, and promyelo cytes. Blood smears from CBCs yielding IG's will be scanned manually for concor dance. If this scan disagrees with the automated IG or if promyelocytes are not ed, a manual differential will be performed. Josey Gran Abs 0.19 (H) 0.00 - 0.04 x10(3)/[facility] LABORATORY Specimen Anatomical Collection Method Collection Time Receive d Time (Source) Location / / Volume Laterality Blood specimen 04/26/2020 6:35 AM 020 6:42 (specimen) EDT AM EDT Resulting Agency Comment Spec In Lab Evin Castroterence DO HEMATOLOGY ORDERABLES Performing Organization Address City/State/[place] [address] (ABNORMAL) Hemogram (04/26/2020 6:35 AM EDT) Analysis Performed At Patho logist Time Signature WBC 22.4 (H) 4.0 - 9.5 [facility] LABORATORY RBC 3.36 (L) 4.00 - [place] [place] 5.21 [facility] x10(6)/[facility] LABORATORY Hemoglobin 10.0 (L) 11.7 - [facility] 15.5 gm/dL [facility] LABORATORY Hematocrit 29.2 (L) 35.7 - [facility] 45.8 % [facility] MCV 86.9 82.6 - [facility] 94.4 [facility] LABORATORY MCH 29.8 27.1 - [facility] [place] 32.0 pg [facility]AT[facility] MCHC 34.2 31.7 - [facility] 35.0 gm/dL [facility] Platelets 497 (H) 145 - 357 [facility] x10(3)/[facility] LABORATORY RDWSD 58.0 (H) 37.0 - [facility] 46.0 [facility] LABORATORY RDWCV 18.7 (H) 11.5 - [facility] 14.1 % [facility] LABORATORY MPV 10.5 7.6 - 12.9 [facility] LABORATORY nRBC % Auto 0.0 % [facility] LABORATORY nRBC Abs Auto 0.000 0.000 - [facility] 0.000 [facility] x10(3)/[facility] LABORATORY Specimen Anatomical Collection Method Collection Time Receive d Time (Source) Location / / Volume Laterality Blood specimen 04/26/2020 6:35 AM 020 6:42 (specimen) EDT AM EDT Resulting Agency Comment Spec In Lab Evin Castroterence DO HEMATOLOGY ORDERABLES Performing Organization Address City/State/[place] [address] (ABNORMAL) Basic Metabolic Panel (non-fasting) (04/26/2020 6:35 AM EDT) P athologist Signature Glucose Lvl 104 65 - 199 [facility] mg/dL [facility] Comment: Diabetes: >=200 mg/dL plus symp toms BUN 7 (L) 8 - 18 mg/dL [facility] Creatinine 0.72 0.70 - 1.20 mg/dL [facility] Sodium 132 (L) 135 - 145 mmol/L [facility] Potassium 3.6 3.5 - 5.0 mmol/L [facility] Comment: Please note: ??Patients with WBC >100,00 0 may have falsely elevated Potassium levels. ??For accurate Potassium quantif ication in these patients send serum separator tube (gold top) for subsequent determinations. ??Contact the Clinical Chemistry Laboratory if there are any qu estions. Chloride 100 98 - 107 mmol/L [facility] CO2 24 22 - 31 mmol/L [facility] Anion Gap 8 5 - 15 mmol/L [facility] Calcium 8.1 (L) 8.5 - 10.5 mg/dL [facility] Estimated GFR 104 >=60 mL/min/1.73 m?? [facility] Comment: The eGFR was calculated using the CKD-EP I equation. As with all creatinine based estimates of kidney function, eGFR values calculated with the CKD-EPI equation are not accurate in patients wi th acute kidney failure, extremes of body mass or the acutely ill. [email or web address] [email or web address] eGFR 121 >=60 mL/min/1.73 m?? [facility] Comment: The eGFR was calculated using the CKD-EP I equation. As with all creatinine based estimates of kidney function, eGFR values calculated with the CKD-EPI equation are not accurate in patients wi th acute kidney failure, extremes of body mass or the acutely ill. [email or web address] Specimen Anatomical Collection Method Collection Time Receive d Time (Source) Location / / Volume Laterality Blood specimen 04/26/2020 6:35 AM 020 6:42 (specimen) EDT AM EDT Resulting Agency Comment Spec In Lab Mikey Mtz MD CHEMISTRY ORDERABLES Performing Organization Address City/[facility]/ZIP Code Phon e Number [address] Magnesium (04/26/2020 6:35 AM EDT) P athologist Signature Magnesium 0.85 0.69 - 1.07 [facility] mmol/L [facility] Specimen Anatomical Collection Method Collection Time Receive d Time (Source) Location / / Volume Laterality Blood specimen 04/26/2020 6:35 AM 020 6:42 (specimen) EDT AM EDT Resulting Agency Comment Spec In Lab Mikey Mtz MD CHEMISTRY ORDERABLES Performing Organization Address City/[facility]/ZIP Code Phon e Number [address] Phosphorus (04/26/2020 6:35 AM EDT) P athologist Signature Phosphorus 2.7 2.5 - 4.5 [facility] mg/dL [facility] Specimen Anatomical Collection Method Collection Time Receive d Time (Source) Location / / Volume Laterality Blood specimen 04/26/2020 6:35 AM 020 6:42 (specimen) EDT AM EDT Resulting Agency Comment Spec In Lab iMkey Mtz MD CHEMISTRY ORDERABLES Performing Organization Address City/[facility]/[place] [address] (ABNORMAL) Hepatic Function Panel (04/26/2020 6:35 AM EDT) Patholo gist Method Time Signature Total Protein 5.0 (L) 6.1 - 8.0 [facility] g[facility]dL [facility] Albumin 2.3 (L) 3.2 - 5.2 [facility] gm/dL [facility] AST 149 (H) 0 - 30 [facility] unit/L [facility] ALT 30 0 - 30 [facility] unit/L [facility] Alk Phos 117 (H) 35 - 105 [facility] unit/L [facility] Total 17.4 (H) 0.2 - 1.3 [facility] Bilirubin mg/dL [facility] Bili, Direct >10.0 (H) 0.0 - 0.3 [facility] mg/dL [facility] Specimen Anatomical Collection Method Collection Time Receive d Time (Source) Location / / Volume Laterality Blood specimen 04/26/2020 6:35 AM 020 6:42 (specimen) EDT AM EDT Resulting Agency Comment Spec In Lab Mikey Mtz MD CHEMISTRY ORDERABLES Performing Organization Address City/[facility] [place] [address] (ABNORMAL) Prothrombin Time (04/26/2020 6:35 AM EDT) P athologist Signature PT 28.6 (H) 9.4 - 12.5 [facility] LABORATORY INR 2.5 [facility] Comment: An INR <2.0 indicates [...] Location / / Volume Laterality Blood specimen 04/26/2020 6:35 AM 020 6:42 (specimen) EDT AM EDT Resulting Agency Comment Spec In Lab Mikey Mtz MD HEMATOLOGY ORDERABLES Performing Organization Address City/[facility]/[place] [address] (ABNORMAL) APTT (04/26/2020 6:35 AM EDT) P athologist Signature PTT 46 (H) 25 - 37 sec [facility] Comment: The PTT is NOT appropriate for heparin m onitoring. Use the Anti-Xa level for heparin monitoring (HEP UFH) or LMWH mon itoring (HEP LMW). A PTT less than 37 seconds generally indicates adequate hem ostasis. Specimen Anatomical Collection Method Collection Time Receive d Time (Source) Location / / Volume Laterality Blood specimen 04/26/2020 6:35 AM 020 6:42 (specimen) EDT AM EDT Resulting Agency Comment Spec In Lab Mikey Mtz MD HEMATOLOGY ORDERABLES Performing Organization Address City/[facility]/[place] [address] Blood culture (04/26/2020 6:35 AM EDT) Patholo gist Method Time Signature Blood Culture No growth [facility] at 5 days. [facility] Specimen Anatomical Collection Method Collection Time Receive d Time (Source) Location / / Volume Laterality Blood specimen STRUCTURE OF LEFT 04/26/2020 6:35 AM 9:49 (specimen) UPPER LIMB / EDT AM EDT Unknown Comment: 2ND SET Resulting Agency Comment Spec In Lab Mikey Mtz MD MICROBIOLOGY - BLOOD ORDERAB LES Performing Organization Address City/[facility]/[place] [address] Blood culture (04/26/2020 6:24 AM EDT) Patholo gist Method Time Signature Blood Culture No growth [facility] at 5 days. [facility] Specimen Anatomical Collection Method Collection Time Receive d Time (Source) Location / / Volume Laterality Blood specimen STRUCTURE OF RIGHT 04/26/2020 6:24 AM 0 04/26/2020 9:48 (specimen) HAND / Unknown EDT AM EDT Comment: 1 SET Resulting Agency Comment Spec In Lab Mikey Mtz MD MICROBIOLOGY - BLOOD ORDERAB LES Performing Organization Address City/[facility]/[place] [address] Film Library- Storage Only DX Chest (04/25/2020 12:00 AM EDT) Specimen (Source) Anatomical Location Collection Method / Collectio n Time Received Time / Laterality Volume Narrative [facility] - 04/27/2020 6:47 AM EDT This exam is auto-finalizing. It's purpo se is for storage only. Karina Lantigua MD IMG FILM LIBRARY ORDERABLES Performing Organization Address City/State/ZIP Code Phon e Number [facility] [place], [place] documented in this encounter Visit Diagnoses Diagnosis Alcoholic hepatitis with ascites Acute alcoholic hepatitis Alcoholic hepatitis Acute alcoholic hepatitis documented in this encounter Admitting Diagnoses Diagnosis Alcoholic hepatitis with ascites Acute alcoholic hepatitis Alcoholic hepatitis Acute alcoholic hepatitis documented in this encounter Administered Medications Inactive Administered Medications - up to 3 most recent administrations Medication Order MAR Action Action Date Dose Rate Site acamprosate DR (Campral) tablet Given 05/06/2020 3:35 PM EDT 666 mg 666 mg 666 mg, Oral, 3 TIMES DAILY, First dose on 04/26/20 at 0900, Until Discontinued, DO NOT CRUSH OR OPEN, Routine Given 05/06/2020 8:09 AM EDT 666 mg Given 05/05/2020 8:32 PM EDT 666 mg acetaminophen (Tylenol) tablet 500 mg Given 05/05/2020 1:04 PM EDT 500 mg 500 mg, Oral, EVERY 6 HOURS PRN, Starting on 04/27/20 at 1151, Until 05/06/20 at 2335, Pain, Maximum dose of acetaminophen is 2000 mg from all sources in 24 hours. When ordered for pain, acetaminophen should be given even when other ordered pain medications are indicated., Routine Given 05/04/2020 10:34 PM EDT 500 mg Given 05/02/2020 4:03 PM EDT 500 mg albumin (human) 25% 50 mL intravenous New Bag 04/28/2020 1:28 PM E DT 12.5 g solution 12.5 g, Intravenous, EVERY 30 MIN, 4 doses, First dose on 04/28/20 at 1200, Last dose on 04/28/20 at 1330, 1 bottle (unit) = 12.5 grams / 50 mL (Total Dose = 50 grams = 4 bottles), Routine New Bag 04/28/2020 12:56 PM EDT 12.5 g New Bag 04/28/2020 12:09 PM EDT 12.5 g albumin (human) 25% 50 mL intravenous New Bag 04/28/2020 4:27 PM E DT 12.5 g solution 12.5 g, Intravenous, EVERY 30 MIN, 1 dose, First dose (after last reorder) on Tue04/28/20 at 1700, 1 bottle (unit) = 12.5 grams / 50 mL (Total Dose = 50 grams = 4 bottles), Routine albumin (human) 25% 50 mL intravenous New Bag 05/05/2020 2:43 PM E DT 12.5 g solution 12.5 g, Intravenous, EVERY 15 MIN, 6 doses, First dose on Tue05/05/20 at 1300, Last dose on Tue05/05/20 at 1415, 1 bottle (unit) = 12.5 grams / 50 mL (Total Dose = 75 grams = 6 bottles), Routine New Bag 05/05/2020 2:23 PM EDT 12.5 g New Bag 05/05/2020 2:04 PM EDT 12.5 g albumin (human) 25% 50 mL intravenous New Bag 05/06/2020 5:09 PM E DT 12.5 g solution 12.5 g, Intravenous, EVERY 30 MIN, 4 doses, First dose on Tue05/06/20 at 1615, Last dose on Tue05/06/20 at 1745, 1 bottle (unit) = 12.5 grams / 50 mL (Total Dose = 50 grams = 4 bottles), Routine New Bag 05/06/2020 4:38 PM EDT 12.5 g New Bag 05/06/2020 4:06 PM EDT 12.5 g benzonatate (Tessalon) capsule 100 mg Given 05/06/2020 4:15 PM EDT 100 mg 100 mg, Oral, 3 TIMES DAILY PRN, Starting on Tue05/06/20 at 1602, Until Tue05/06/20 at 2335, Cough, DO NOT CRUSH OR OPEN, Routine dextromethorphan-guaiFENesin (Robitussin DM) ( Given 1 7:50 PM EDT 5 mLs 2 mg-20 mg/mL) oral liquid 5 mL 5 mL, Oral, EVERY 4 HOURS PRN, Starting on Tue04/27/20 at 1150, Until Tue05/06/20 at 2335, Cough, Routine Given 05/06/2020 3:39 AM EDT 5 mLs Given 05/05/2020 11:07 PM EDT 5 mLs folic acid (Folvite) tablet 1,000 mcg Given 05/06/2020 8:10 AM EDT 1,000 mcg 1,000 mcg (1 mg), Oral, DAILY, First dose on 04/26/20 at 0900, Until Discontinued, Routine Given 05/05/2020 9:22 AM EDT 1,000 mcg Given 05/04/2020 9:05 AM EDT 1,000 mcg furosemide (Lasix) tablet 20 mg Given 04/26/2020 8:48 AM EDT 20 mg 20 mg, Oral, DAILY, First dose on 04/26/20 at 0900, Until Discontinued, Routine furosemide (Lasix) tablet 20 mg Given 04/27/2020 8:24 AM EDT 20 mg 20 mg, Oral, DAILY, First dose (after last modification) on 04/27/20 at 0900, Until Discontinued, Routine furosemide (Lasix) tablet 20 mg Given 05/02/2020 8:25 AM EDT 20 mg 20 mg, Oral, DAILY, First dose on Niurka 05/01/20 at 1100, Until Discontinued, Routine Given 05/01/2020 10:55 AM EDT 20 mg furosemide (Lasix) tablet 20 mg Given 05/03/2020 9:32 AM EDT 20 mg 20 mg, Oral, ONCE, 1 dose, On 05/03/20 at 0945, Routine furosemide (Lasix) tablet 20 mg Given 05/04/2020 11:19 AM EDT 20 mg 20 mg, Oral, ONCE, 1 dose, On 05/04/20 at 1200, Routine lidocaine (XYLOCAINE) 10 mg/mL (1 %) Given 05/06/2020 12:12 PM E DT 10 mg injection 10 mg 10 mg, Subcutaneous, ONCE, 1 dose, On Tue05/06/20 at 1300, For use in Interventional Radiology (IR) only for procedure with direct provider supervision and verbal order., Angio/IR (Intra-Procedure), Routine multivitamin with minerals (THERA-M) tablet Given 12/2019 8:09 AM EDT 1 tablet 1 tablet 1 tablet, Oral, DAILY, First dose on 04/26/20 at 0900, Until Discontinued, Routine Given 05/05/2020 9:22 AM EDT 1 tablet Given 05/04/2020 9:05 AM EDT 1 tablet ondansetron (ZOFRAN) injection 4 mg Given 04/30/2020 3:16 PM EDT 4 mg 4 mg, Intravenous, EVERY 8 HOURS PRN, Starting on Tue04/28/20 at 1159, Until Tue05/06/20 at 2335, Nausea Given 04/30/2020 8:11 AM EDT 4 mg Given 04/29/2020 10:30 PM EDT 4 mg ondansetron ODT (Zofran-ODT) disintegrating Given 04/29/2020 3:5 5 AM EDT 8 mg tablet 8 mg 8 mg, Oral, EVERY 8 HOURS PRN, Starting on Tue04/28/20 at 1651, Until Tue05/06/20 at 2335, Nausea, Routine Given 04/28/2020 6:00 PM EDT 8 mg pantoprazole EC (Protonix) tablet 40 mg Given 05/06/2020 8:10 AM EDT 40 mg 40 mg, Oral, 2 TIMES DAILY, First dose on 04/26/20 at 0900, Until Discontinued, DO NOT CRUSH OR OPEN, Routine Given 05/05/2020 8:32 PM EDT 40 mg Given 05/05/2020 9:22 AM EDT 40 mg phytonadione (vitamin K1) (Mephyton) tablet 10 Given 1 9:05 AM EDT 10 mg mg 10 mg, Oral, DAILY, 3 doses, First dose on Tue05/02/20 at 1315, Last dose on 05/04/20 at 0900, Routine Given 05/03/2020 9:31 AM EDT 10 mg Given 05/02/2020 12:41 PM EDT 10 mg prednisoLONE (Millipred) tablet 40 mg Given 05/06/2020 8:10 AM EDT 40 mg 40 mg, Oral, DAILY, First dose on Tue04/30/20 at 1645, Until Discontinued, Routine Given 05/05/2020 9:22 AM EDT 40 mg Given 05/04/2020 9:05 AM EDT 40 mg sodium chloride 0.9 % (flush) flush 5 mL Given 05/06/2020 9:00 PM EDT 5 mLs 5 mL, Intravenous, 2 TIMES DAILY, First dose on 04/26/20 at 0900, Until Discontinued, Routine Given 05/06/2020 8:09 AM EDT 5 mLs Given 05/05/2020 8:33 PM EDT 5 mLs spironolactone (Aldactone) tablet 25 mg Given 05/02/2020 8:26 AM EDT 25 mg 25 mg, Oral, DAILY, First dose on 04/29/20 at 0945, Until Discontinued, DO NOT SPLIT, CRUSH OR OPEN, Routine Given 05/01/2020 8:58 AM EDT 25 mg Given 04/30/2020 8:12 AM EDT 25 mg spironolactone (Aldactone) tablet 25 mg Given 05/03/2020 12:30 PM EDT 25 mg 25 mg, Oral, DAILY, First dose on 05/03/20 at 1130, Until Discontinued, DO NOT SPLIT, CRUSH OR OPEN, Routine spironolactone (Aldactone) tablet 50 mg Given 04/26/2020 11:07 AM EDT 50 mg 50 mg, Oral, ONCE, 1 dose, On 04/26/20 at 1145, DO NOT SPLIT, CRUSH OR OPEN, Routine spironolactone (Aldactone) tablet 50 mg Given 04/27/2020 10:10 AM EDT 50 mg 50 mg, Oral, DAILY, First dose on 04/27/20 at 1000, Until Discontinued, DO NOT SPLIT, CRUSH OR OPEN, Routine spironolactone (Aldactone) tablet 50 mg Given 05/04/2020 11:19 AM EDT 50 mg 50 mg, Oral, ONCE, 1 dose, On 05/04/20 at 1200, DO NOT SPLIT, CRUSH OR OPEN, Routine thiamine (Vitamin B1) tablet 100 mg Given 05/06/2020 8:09 AM EDT 100 mg 100 mg, Oral, DAILY, First dose on 04/26/20 at 0900, Until Discontinued, Routine Given 05/05/2020 9:22 AM EDT 100 mg Given 05/04/2020 9:05 AM EDT 100 mg documented in this encounter Active and Recently Administered Medications Times are shown in EDT. Scheduled Medication Order 05/04/2020 05/05/2020 05/06/[address] (Campral) tablet 666 mg 0905 (Given - P rovider: Lulu Brody RN)1510 (Given - Provider: Lulu Brody RN)2041 (Given - Provider: Sole Carpio RN) 0922 (Given - Provider: Lulu Brody RN)1423 (Given - Provider: Sushma Trejo RN)203 (Given - Provider: Giovanna Cruz, ARANZA) 0809 (Given - Provider: Vero Pavon RN)1535 (Given - Provider: Vero Pavon RN)2100 (Not Given - Provider: Giovanna Cruz RN - Reason: Patient/family refused) 666 mg, Oral, 3 TIMES DAILY, First dose on Tue04/26/20 at 0900, Until Discontinued, DO NOT CRUSH OR OPEN, Routine albumin (human) 25% 50 mL intravenous solution (COMPLETED) 1259 (New Bag - Provider: Lulu Brody RN)1314 (Stopped - Provider: Lulu Brody RN)1318 (New Bag - Provider: Lulu Brody RN)1329 (Stopped - Provider: Sushma Trejo RN)1330 (New Bag - Provider: Sushma Trejo RN) 12.5 g, Intravenous, EVERY 15 MIN, 6 dos es, First dose on Tue05/05/20 at 1300, Last dose on Tue05/05/20 at 1415, 1 bottle (unit) = 12.5 grams / 50 mL (Total Dose = 75 grams = 6 bottles), Routine 1344 (Stopped - Provider: Sushma Trejo RN)1404 (New Bag - Provider: Sushma Trejo RN)1414 (Stopped - Provider: Sushma Trejo RN)1423 (New Bag - Provider: Sushma Trejo RN)1438 (Stopped - Provider: Vero Swanson RN) 1443 (New Bag - Prov ider: Vero Swanson RN)1458 (Stopped - Provider: Lulu Brody RN) albumin (human) 25% 50 mL intravenous solution 1100 (Canceled Entry - Provider: Vero Pavon RN - Reason: See comment)1115 (Canceled Entry - Provider: Vero Pavon RN - Reason: See comment)1130 (Canceled Entry - Provider: Vero Pavon RN - Reason: See comment) 12.5 g, Intravenous, EVERY 15 MIN, 4 dos es, First dose on Tue05/06/20 at 1100, Last dose on Tue05/06/20 at 1145, PLEASE GIVE AFTER THE PARACENTESIS IS DONE TODAY 1 bottle (unit) = 12.5 grams / 50 mL (Total Dose = 50 grams = 4 bottles), Routine 1145 (Canceled Entry - Provider: Vero Pavon RN - Reason: See comment) albumin (human) 25% 50 mL intravenous solution (COMPLETED) 1535 (New Bag - Provider: Vero Paovn RN)1605 (Stopped - Provider: Vero Pavon RN)1606 (New Bag - Provider: Vero Pavon RN)1637 (Stopped - Provider: Vero Pavon RN)1638 (New Bag - Provider: Vero Pavon RN) 12.5 g, Intravenous, EVERY 30 MIN, 4 dos es, First dose on Tue05/06/20 at 1615, Last dose on Tue05/06/20 at 1745, 1 bottle (unit) = 12.5 grams / 50 mL (Total Dose = 50 grams = 4 bottles), Routine 17 08 (Stopped - Provider: Vero Pavon RN)1709 (New Bag - Provider: Vero Pavon RN)1739 (Stopped - Provider: Vero Pavon RN) folic acid (Folvite) tablet 1,000 mcg 0905 (Given - Pr ovider: Lulu Brody RN) 0922 (Given - Provider: Lulu Brody RN) 0810 (Gi cici - Provider: Vero Pavon RN) 1,000 mcg (1 mg), Oral, DAILY, First dos e on 04/26/20 at 0900, Until Discontinued, Routine furosemide (Lasix) tablet 20 mg (COMPLETED) 1119 (Give n - Provider: Lulu Brody RN) 20 mg, Oral, ONCE, 1 dose, 05/04/20 at 1200, Routine lidocaine (XYLOCAINE) 10 mg/mL (1 %) injection 10 mg (COMPLETED) 1212 (Given - Provider: Carlitos Steve, DO) 10 mg, Subcutaneous, ONCE, 1 dose, e at 1300, For use in Interventional Radiology (IR) only for procedure with direct provider supervision and verbal order., Angio/IR (Intra-Procedure), Routine multivitamin with minerals (THERA-M) tablet 1 tablet 0 905 (Given - Provider: Lulu Brody RN) 09 (Given - Provider: Lulu Brody RN) 08 (Gi cici - Provider: Vero Keith I, ARANZA) 1 tablet, Oral, DAILY, First dose on 04/26/20 at 0900, Until Discontinued, Routine pantoprazole EC (Protonix) tablet 40 mg 904 (Given - Provider: Lulu Brody RN)2041 (Given - Provider: Sole Carpio RN) 921 (Given - Provider: Lulu Brody RN)2031 (Given - Provider: Giovanna Cruz RN) 08 (Given - Provider: Vero Pavon RN)2099 (Not Given - Provider: Giovanna Cruz RN - Reason: Patient/family refused) 40 mg, Oral, 2 TIMES DAILY, First dose o n 04/26/20 at 0900, Until Discontinued, DO NOT CRUSH OR OPEN, Routine phytonadione (vitamin K1) (Mephyton) tablet 10 mg (COM PLETED) 904 (Given - Provider: Lulu Brody RN) 10 mg, Oral, DAILY, 3 doses, First dose on Tue05/02/20 at 1315, Last dose on 05/04/20 at 0900, Routine prednisoLONE (Millipred) tablet 40 mg 904 (Given - Pr ovider: Lulu Brody RN) 921 (Given - Provider: Lulu Brody RN) 0810 (Gi cici - Provider: Vero Pavon RN) 40 mg, Oral, DAILY, First dose on Wed at 1645, Until Discontinued, Routine sodium chloride 0.9 % (flush) flush 5 mL 905 (Given - Provider: Lulu Brody RN)2041 (Given - Provider: Sole Carpio RN) 09 (Given - Provider: Lulu Brody RN)2032 (Given - Provider: Giovanna Cruz, ARANZA) 08 (Given - Provider: Vero Pavon RN)2100 (Given - Provider: Giovanna Cruz, ARANZA) 5 mL, Intravenous, 2 TIMES DAILY, First dose on 04/26/20 at 0900, Until Discontinued, Routine spironolactone (Aldactone) tablet 50 mg (COMPLETED) 11 (Given - Provider: Lulu Brody RN) 50 mg, Oral, ONCE, 1 dose, 05/04/20 a t 1200, DO NOT SPLIT, CRUSH OR OPEN, Routine thiamine (Vitamin B1) tablet 100 mg 904 (Given - Prov ider: Lulu Brody RN) 921 (Given - Provider: Lulu Brody RN) 808 (Gi cici - Provider: Vero Pavon RN) 100 mg, Oral, DAILY, First dose on Sat at 0900, Until Discontinued, Routine PRN Medication Order 05/04/2020 05/05/2020 05/06/2020 acetaminophen (Tylenol) tablet 500 mg 2233 (Given - Pr ovider: Sole Carpio RN) 1304 (Given - Provider: Lulu Brody RN) 500 mg, Oral, EVERY 6 HOURS PRN, Startin g 04/27/20 at 1151, Until 05/06/20 at 2335, Pain, Maximum dose of acetaminophen is 2000 mg from all sources in 24 hours. When ordered for pain, acetaminophe n should be given even when other ordere d pain medications are indicated., Routine benzonatate (Tessalon) capsule 100 mg 1615 (Given - Provider: Vero Pavon RN) 100 mg, Oral, 3 TIMES DAILY PRN, Startin g 05/06/20 at 1602, Until 05/06/20 at 2335, Cough, DO NOT CRUSH OR OPEN, Routine dextromethorphan-guaiFENesin (Robitussin DM) ( 2 mg-20 mg/mL ) oral liquid 5 mL 2307 (Given - Provider: Nia Burnett, RN) 0339 (Given - Provider: Gerardo Keys, ARANZA)1950 (Given - Provider: Aleida Neumann, ARANZA) 5 mL, Oral, EVERY 4 HOURS PRN, Starting 04/27/20 at 1150, Until 05/06/20 at 2335, Cough, Routine lidocaine (XYLOCAINE) 10 mg/mL (1 %) injection 3 mg 3 mg (0.3 mL), Subcutaneous, ONCE PRN, 1 dose, Starting 04/26/20 at 0602, Until 05/06/20 at 2335, for discomfort with PIV insertion, Routine ondansetron (ZOFRAN) injection 4 mg 4 mg, Intravenous, EVERY 8 HOURS PRN, St arting 04/28/20 at 1159, Until 05/06/20 at 2335, Nausea ondansetron ODT (Zofran-ODT) disintegrating tablet 8 mg 8 mg, Oral, EVERY 8 HOURS PRN, Starting 04/28/20 at 1651, Until 05/06/20 at 2335, Nausea, Routine sodium chloride 0.9 % (flush) flush 5-20 mL 5-20 mL, Intravenous, EVERY 1 MIN PRN, S tarting 04/26/20 at 0602, Until 05/06/20 at 2335, flush, Flush pertains to all indwelling lines. Flush per protocol found in the job aid using the link provided on this medication record., Routine documented in this encounter Care Teams K 9 Handler/ Deputy Relationship Specialty Start Date End Date Julieta Odell, BENCH HAND MACHINE PCP - General Family Medicine 04/11/20 [address] [place] [address] documented as of this encounter
--- OUTSIDE RECORDS SUMMARY | 2022-04-22 08:34 | XMS_ITS | Encounter Summary ---
:1980 Author Organization [facility] Address [address] [place] [address] Care Team Providers Name Role Phone Julieta Odell Lizzy ESPOSITO Primary Care Provider [phone] Encounter Details Date Type Department Care Team Description 04/25/2020 Ancillary Procedure [place] [address] Social History Tobacco Use Types Packs/Day Years Used Date Never Assessed Alcohol Habits Answer Date Recorded How often do you have a drink containing 4 or more times a w [place] 06/21/2020 alcohol? How many drinks containing alcohol [...] Name Priority Date/Time Associated Diagnosis Comme nts FILM LIBRARY Routine 04/25/2020 12:00 AM Results for this STORAGE ONLY DX EDT procedure ar e in CHEST the results section. documented in this encounter Results Film Library- Storage Only DX Chest (04/25/2020 12:00 AM EDT) Specimen (Source) Anatomical Location Collection Method / Collectio n Time Received Time / Laterality Volume Narrative RAD - 04/27/2020 6:47 AM EDT This exam is auto-finalizing. It's purpo se is for storage only. Karina Lantigua MD IMG FILM LIBRARY ORDERABLES Performing Organization Address City/State/ZIP Code Phon e Number DH RAD DH [place], [place] documented in this encounter Visit Diagnoses Not on filedocumented in this encounter Care Teams Machinist Relationship Specialty Start Date End Date Julieta Odell APRN PCP - General Family Medicine 04/11/20 [address] [place] [address] documented as of this encounter
--- OUTSIDE RECORDS SUMMARY | 2022-04-22 08:34 | XMS_ITS | Encounter Summary ---
:1980 Author Organization [facility] [place] [address] Care Team Providers Name Role Phone Julieta Odell Lizzy ESPOSITO Primary Care Provider [phone] Reason for Referral Consultation (Routine) - Closed Specialty Diagnoses / Procedures Referred By Contact Refer red To Contact Gastroenterology Diagnoses Alcoholic hepatitis with ascites Isha Franklin MD [facility] Gastro [address] [phone] Fax: Referral ID Status Reason Start Date Expiration Date Visits V isits Requested Authorized [id number] Closed Consult, 04/22/2020 04/22/2021 1 1 Test & Treat Reason for Visit Auth/Cert Specialty Diagnoses / Procedures Referred By Contact Refer red To Contact Diagnoses Jaundice Fever / Abd Pain Procedures EMERGENCY IPI Referral ID Status Reason Start Date Expiration Date Visits Requ ested Visits Authorized [id number] 1 1 Encounter Details Date Type Department Care Team Description 04/19/2020 - Hospital Encounter 1 [place] [address] Jaundice; 04/22/2020 [place] [address] Alcoholic [place] [id number] Social History Tobacco Use Types Packs/Day Years Used Date Never Assessed Alcohol Habits Answer Date Recorded How often do you have a drink containing 4 or more times a w [place] 06/21/2020 alcohol? How many drinks containing alcohol [...] Sign Reading Time Taken Comments Blood Pressure 110/68 04/22/2020 3:20 PM EDT Pulse 97 04/21/2020 3:57 PM EDT Temperature 36.7 ??C (98 ??F) 04/22/2020 3:20 PM EDT Respiratory Rate 19 04/22/2020 3:20 PM EDT Oxygen Saturation 94% 04/22/2020 3:20 PM EDT Inhaled Oxygen Concentration - - Weight - - Height - - Body Mass Index - - documented in this encounter Discharge Summaries Milo Ivy MD - 04/22/2020 3:55 PM EDT [facility] Medicine - Discharge Summary Patient Name: Violet Cowan Patient Age: 39 y.o. Birthdate: 1980 Admit date: 04/19/2020 Discharge date and time: 04/22/2020 Attending Physician: Milo Ivy MD ID: Violet Cowan??is a 39 y.o.??female??with a PMH significant for alcohol use,??likely alcoholic??cirrhosis, medically managed microprolactinoma??and recent admission for hemorrhagic shock secondary to a bleeding pre-pyloric ulcer s/p EGD clipping and IR embolization??who presented??in transferfrom[facility]??with fever, leukocytosis and jaundice.?? Follow-up Recommendations for Providers: - If serum creatinine, sodium and potassium are acceptable on next BMP check we recommend adding spironolactone 50 mg daily (in addition to lasix 20 mg daily) - If Violet has any additional fevers, hard to control ascites, up-trending bilirubin or symptomsconcerning for hepatic encephalopathy we recommend that she go to the nearest emergency room for further work-up and evaluation #Fish Med Changes: Added 20mg lasix #Monitoring: #Lab checks F/u CMP w/in 1 week PENDING LABS: paracentesis cultures, NGTD at time of d/c Discharge Diagnoses (Hospital Problems) and Secondary Diagnoses (Chronic Problems): Active Hospital Problems Diagnosis ??? Jaundice Resolved Hospital Problems No resolved problems to display. Operations/Major Procedures: Paracentesis History of Presentation: Violet is a 39 yr old F with PMHx history of alcohol use disorder, LEONA and pituitary tumor who was discharged from [facility] yesterday after an admission for a bleeding pre-pyloric ulcer. He was admittedto ICU from 04/11-04/14 with hemorrhagic shock then on hospital medicine from 04/14 to discharge on 04/17. Bleeding source was found to be secondary to a vigorously bleeding pre-pyloric ulcer that required4-clips and then IR embolization to eventually achieve stabilization. ?? During evaluation of cirrhosis, a RUQUS was concerning for PVT, thus MRI was obtained showed patent hepatic and portal vessels. She was also found to have progressively worsening liver enzymes, especially rising direct bili that was thought to be related to alcoholic hepatitis. She was managed for SBPppx while inpt w/ CTX and discharged on ciprofloxacin to complete 7 day total course per inpatient GI recommendation. ?? Violet arrived home on afternoon of 04/17, she generally felt well and excited to be home with her4 yr old son and . Other than feeling fatigued and some lower extremity edema, she had no complaints. She ate dinner, appetite is improving, no N/V, having about 3 BMs per day which is normal for her since admission, no fevers, continued to have mild intermittent RUQ pain. Denies any ETOH use since being home, and adamant that she will never drink ETOH again. She reports that she continues to have mild RUQ pain that was present and worse during recent hospitalization. The pain is not provokedby eating/drinking or exertion, but is positional and seems to worsen when she lays on her right side. Overall, she feels that the pain is improving, she did have onetime during recent hospitalization that the pain was severe and felt like labor pains and lasted 6 hours. ?? Yesterday morning she woke up again feeling fine other than some JUAN and presented to PCP for scheduled hospital f/u. Her temp was checked upon entering the PCP office and it was normal, and then upon checking temp with vital she was febrile to >102 with 2 checks. However, she denied feeling febrile, no chills or rigors and no new symptoms with these fevers she was instructed to present to the ED.On arrival to OSH she was tachycardic to the 110s, BP 113/76, afebrile and saturating well on RA. She remained afebrile at OSH. Bedside US was performed and significant for small amount ascites that was deemed not enough for paracentesis. Patient had fever workup with blood cultures x2, UA and CXR. She was started on IVFs and given 2g of ceftriaxone at 1930. Hospital Course: # Fever, leukocytosis and hyperbilirubinemia presumed secondary to alcoholic hepatitis # Decompensated alcoholic cirrhosis # Coagulopathy of cirrhosis Ms. Cowan was given ceftriaxone prior to admission and received zosyn upon arrival. However, her antibiotics were stopped the day after arrival and she was afebrile for greater than 48 hours off antibiotics. She was asymptomatic except for stable RUQ pain. Although she initially did not have a significant amount of ascites on the first day of admission, by 04/21 she had accumulated enough fluid fora diagnostic paracentesis to be done by our IR service. Her ascitic fluid did not contain a significant amount of PMN's, and Gram stain was negative, cultures are also negative to date, SAAG was consistent with portal hypertension. Total and direct bilirubin continued to increase. Our GI consult service feel her hyperbilirubinemia and fevers as well as leukocytosis are likely due to alcoholic hepatitis. On the day of discharge she underwent a right upper quadrant ultrasound which was most pertinent for absence of a portal vein thrombus. We did not find an infectious etiology for fever (blood and urine cultures were negative and the ascites fluid was not consistent with SBP). She received three days of IV vitamin K for supra therapeutic INR, which remained elevated at ~2.0 by discharge. She was started on low dose oral lasix (20 mg daily) to control ascites and pedal edema. We recommend adding spironolactone 50 mg daily if she tolerates lasix (from a blood pressure and renal/electrolyte perspective). We discussed with Violet our concern surrounding her uptrending leukocytosis and hyperbilirubinemia and offered and additional 24-48 hours of observation in the hospital. At this point, I do not think she has an underlying (undiagnosed) infection, but I worry that her liver function may continue to worsen after discharge. That said, she expressed a clear and consistent wish to get home and lives down the street from her primary care provider, with whom she will see tomorrow for blood work. She expressed an acceptance of the risk of leaving the hospital earlier than recommended and acknowledged our concern about her tenuous liver function. She will also have expedited follow-up with GI. She was verbally given clear return precautions (ie fevers, worsening abdominal distension, confusion, bloody vomitus or melena/hematochezia). # Recent??Prepyloric Bleeding Ulcer # Subacute blood loss anemia Hemoglobin remained stable in the ~10 range. Important Studies and Lab Data: Recent Labs 04/22/20 0700 04/21/20 0416 04/20/20 0308 04/19/20 0302 04/17/20 0341 WBC 21.7* 17.1* 15.0* 13.3* 10.3* HGB 10.0* 10.0* 10.1* 9.7* 10.5* PLATELET 477* 479* 490* 405* 280 Recent Labs 04/22/20 0700 04/21/20 0416 04/20/20 0308 04/19/20 0302 04/17/20 0341 NA 133* 131* 133* 135 137 K 3.7 3.5 3.6 4.2 3.3* CL 101 101 102 103 104 CO2 22 22 23 21* 25 BUN 5* 7* 8 8 9 CREATININE 0.44* Not Perf 0.52* 0.69* 0.69* GLUCOSE 97 100 114 96 -- Recent Labs 04/22/20 0700 04/21/20 0416 04/20/20 0308 04/19/20 0302 CALCIUM 8.0* 7.7* 7.9* 7.8* MAGNESIUM -- -- -- 0.80 PHOS 2.5 2.5 2.4* 1.4* Recent Labs 04/22/20 0704/21/20 0416 04/20/20 0308 AST 120* 134* 144* ALT 31* 37* 41* ALKPHOS 118* 113* 116* BILITOT 14.0* 12.5* 12.0* BILIDIR >10.0* >10.0* >10.0* Recent Labs 04/21/20 0416 04/20/20 0905 04/19/20 0302 INR 2.0 2.0 2.1 No results for input(s): HA1C in the last 7068 hours. OTHER FISH LABS: Microbiology: Paracentesis: 5 PMN's Pertinent radiology/diagnostic studies: Results for orders placed or performed during the hospital encounter of 04/19/20 US Abdomen Vascular Limited Hepatology Protocol (Exam End: 04/22/2020 2:47 PM) Impression 1. Coarsened hepatic parenchyma, and surrounding ascites, [...] findings are consistent with recent sonographic comparison. Thank you for letting us participate in the care of this patient. For questions regarding this report, please contact the number below. Nabor Mcbride, Staff Physician Electronically Signed Final Report 04/22/2020 03:20 pm Discharge Conditions/Prognosis: Upon discharge the pt is hemodynamically stable, afebrile, fully ambulatory without requiring supplemental oxygen, holding down food/drink, and pain controlled with stable oral regimen. Discharge to: home Discharge Medications: Your Medications New Medications Dose Details furosemide 20 mg Tab Commonly known as: Lasix Take 1 tablet by mouth daily. 20 mg Quantity: 30 tablet Refills: 0 Continued medications, unchanged Dose Details acamprosate DR 333 mg Tbec Commonly known as: Campral Take 2 tablets by mouth 3 times daily. 666 mg Quantity: 180 tablet Refills: 0 ciprofloxacin 500 mg Tab Commonly known as: Cipro Take 1 tablet by mouth 2 times daily for 2 days. 500 mg Quantity: 4 tablet Refills: 0 folic acid 1 mg [...] 100 mg Quantity: 30 tablet Refills: 0 Updated Allergies/ADRs: No Known Allergies Patient Instructions Instructions on Discharge to Home Why you were hospitalized - You were hospitalized due to concern for an infection in your belly, but were then found to have inflammation in your liver. Call your doctor or seek medical attention if you develop the following - fever, chills, worsening weakness, chest pain, shortness of breath, cough, worsening abdominal pain, weakness in an arm or leg Activity level - no restrictions Diet - no change in previous diet Driving - as before hospitalization Shower/Bath - permitted Wound Care - none Home Oxygen therapy - none Changes in Your Medications: New Medications: Furosemide (aka Lasix) 20mg once a day NOTE: Please limit yourself to no more than 2000mg of acetaminophen (aka Tylenol) in a 24hr period. Also, please abstain from alcohol. Follow-up: NOTE: Please keep the appointment with your PCP that you mentioned you have scheduled for 04/23/2020.Also, you have an appointment with a colleague of your PCP, Dr. Lu, on 04/29/2020 at 1:30pm. Future Appointments Date Time Provider Department Center 05/09/2020 10:00 AM Anabel English MD [facility] GASTRO [facility] Your Inpatient Doctor: Milo Ivy MD Your Primary Care Provider: Julieta Odell, SOLAR LAB TECHNICIAN [phone] For questions regarding this document or issues relating to this hospitalization on the Medical Service, please contact your inpatient physician through the [facility] Director Telemetry . Issues after hours and on weekends will be handled by the Hospitalist staff on-call. Future Appointments and Orders Future Appointments and Orders Future Appointments Provider Department Dept Phone 05/09/2020 10:00 AM Anabel English MD Gastroenterology at [facility] Arrive at: [employer] Area 4L [phone] Future Orders Complete By Expires Referral to Gastroenterology [REF25 Custom] As directed Process Instructions: If no progress note charted, please enter Clinical details in comments. Scheduling Instructions: Comments: Suspected alcoholic hepatitis, discharged w/ rising bilirubin and associated leukocytosis, unclear if this will continue to worsen or plateau and self resolve Questions: My question or request is: See comment For questions regarding this document or issues relating to this hospitalization on the Medical Service, please contact your inpatient physician through the [facility] Director Telemetry . Issues after hours and on weekends will be handled by the Hospitalist staff on-call. Signed: Milo Ivy MD documented in this encounter Discharge Instructions Discharge InstructionsBina Connell RN - 04/21/2020 4:21 PM EDT [facility] Vascular and Interventional Radiology Discharge Instructions Following [...] is during regular office hours, please call [phone]. If it is after regular office hours, oron weekends or holidays, please call [phone] and ask to speak to the Esthetician on callfor Interventional Radiology. Revised 05/17/19 Patient InstructionsBoMoi stockton MD - 04/21/2020 4:20 PM EDT Instructions on Discharge to Home Why you were hospitalized - You were hospitalized due to concern for an infection in your belly, but were then found to have inflammation in your liver. Call your doctor or seek medical attention if you develop the following - fever, chills, worsening weakness, chest pain, shortness of breath, cough, worsening abdominal pain, weakness in an arm or leg Activity level - no restrictions Diet - no change in previous diet Driving - as before hospitalization Shower/Bath - permitted Wound Care - none Home Oxygen therapy - none Changes in Your Medications: New Medications: Furosemide (aka Lasix) 20mg once a day NOTE: Please limit yourself to no more than 2000mg of acetaminophen (aka Tylenol) in a 24hr period. Also, please abstain from alcohol. Follow-up: NOTE: Please keep the appointment with your PCP that you mentioned you have scheduled for 04/23/2020.Also, you have an appointment with a colleague of your PCP, Dr. Lu, on 04/29/2020 at 1:30pm. Future Appointments Date Time Provider Department Center 05/09/2020 10:00 AM Anabel English MD [facility] GASTRO [facility] Your Inpatient Doctor: Milo Ivy MD Your Primary Care Provider: Julieta Odell, SOLAR LAB TECHNICIAN [phone] For questions regarding this document or issues relating to this hospitalization on the Medical Service, please contact your inpatient physician through the [facility] Director Telemetry . Issues after hours and on weekends will be handled by the Hospitalist staff on-call. documented in this encounter Medications at Time of Discharge Medication Sig Dispensed Refills Start Date End Date folic acid (Folvite) 1 mg Take 1 [...] Take 1 tablet by 4 tablet 0 04/0204/24/2020 mg Tablet mouth 2 times daily for 2 days. furosemide (Lasix) 20 mg Take 1 tablet by 30 tablet 0 04/2205/06/2020 Tablet mouth daily. documented as of this encounter Progress Notes Moi Reyes MD - 04/22/2020 6:01 PM EDT 1 [facility] [id number] April 23, 2020 Patient: Violet Cowan Date of : 1980 Dates of Inpatient Admission: 04/18/2020 to 04/22/2020 To Whom It May Concern: Violet Cowan was admitted to [facility] on 04/18/2020 and was discharged home on 04/22/2020. She may return to work on 04/29/2020 without restrictions thereafter. Sincerely, Moi Reyes MD [facility] Internal Medicine Donna Antonio RN - 04/22/2020 5:54 PM EDT AVS reviewed. PIV removed. Pt discharged home via private vehicle. Milo Ivy MD - 04/22/2020 4:33 PM EDT Hospital Medicine - Attending Day of Discharge Documentation Discharge diagnosis Active Hospital Problems Diagnosis ??? Jaundice Resolved Hospital Problems No resolved problems to display. Secondary Issues Active Non-Hospital Problems Diagnosis ??? GI bleed I have personally seen and examined the patient and they are ready for discharge. I spent >30 minutes (Day of Discharge Code 30269) involved in the final examination of the patient, discussion of the hospital stay, instructions for continuing care to all relevant caregivers, and preparation of discharge records, prescriptions and referral forms. Plans ? Discharge to home ? Follow-up scheduled with PCP, GI ? Please see the Discharge Summary for complete details of any medication changes and additional plans. Giovanna Cruz RN - 04/21/2020 9:04 PM EDT Arrived to 142B at 2105. Oriented to room and call soni. Able to make needs known, bed alarm on. VSS, assessment as documented. Isha Franklin MD - 04/21/2020 11:51 AM EDT Images from the original note were not included. Inpatient Medicine Progress Note ID: Violet Cowan is a 39 y.o. female with a PMH significant for alcohol use, likely alcoholic cirrhosis, medically managed microprolactinoma and recent admission for hemorrhagic shock secondary to a bleeding pre-pyloric ulcer s/p EGD clipping and IR embolization who presented in transfer from [facility] with fever, leukocytosis and jaundice. 24 hr events: - no fever - adequate amount of ascites for diagnostic para per POCUS - NAEO - mild stable RUQ pain Meds: Continuous Infusions: Scheduled Meds: ??? lidocaine 3 patch Transdermal Q24H And ??? lidocaine 3 patch Transdermal Q24H ??? folic acid 1 mg Oral Daily ??? multivitamin with minerals 1 tablet Oral Daily ??? pantoprazole EC 40 mg Oral BID ??? thiamine 100 mg Oral Daily ??? sodium chloride 0.9 % (flush) 5 mL Intravenous BID ? ? potassium, sodium phosphates 1.5 g Oral 4 Times Daily WC & HS PRN Meds:.sodium chloride 0.9 % (flush), lidocaine Vital Signs: Last value Range last 24 hrs Temperature Temp: 37.1 ??C (98.8 ??F) Temp: [36.9 ??C (98.4 ??F)-37.1 ??C (98.8 ??F)] Heart Rate Heart Rate: -- Blood Pressure BP: 98/61 BP: (84-104)/(48-67) Respiratory Rate Resp: 18 Resp: [17-18] SpO2 SpO2: 92 % SpO2: [89 %-93 %] I/O: Intake/Output Summary (Last 24 hours) at 04/21/2020 1151 Last data filed at 04/21/2020 0800 Gross per 24 hour Intake 1080 ml Output 975 ml Net 105 ml Physical Exam: Gen: in bed in NAD; alert, oriented, interactive, diffusely jaundiced HEENT: icteric sclerae, MMM CV: RRR, normal S1/S2, no S3/S4, no m/r/g Resp: CTAB, normal WOB Abd: +BS, soft, ttp in RUQ to palpation, no rebound/guarding. No masses/bruises. Mildly distended. No shifting dullness appreciated. Ext: WWP, no cyanosis, no clubbing, 2+ DP pulses, 2+ RLE 1+ LLE pitting edema Neuro: no focal deficits noted, CN II-XII grossly intact, moves all extremities spontaneously Skin: no rashes, lesions, or ulcerations noted Labs Recent Labs 04/21/2041504/20/2030704/19/20 030 WBC 17.1* 15.0* 13.3* HGB 10.0* 10.1* 9.7* HCT 29.6* 30.5* 29.3* PLATELET 479* 490* 405* Recent Labs 04/21/2041504/20/2030704/19/20 030 NA 131* 133* 135 K 3.5 3.6 4.2 CL 101 102 103 CO2 22 23 21* BUN 7* 8 8 CREATININE Not Perf 0.52* 0.69* Recent Labs 04/21/2041504/20/20 03004/19/20 030 AST 134* 144* 148* ALT 37* 41* 41* ALKPHOS 113* 116* 100 BILITOT 12.5* 12.0* 11.1* BILIDIR >10.0* >10.0* 9.4* Recent Labs 04/21/2041504/20/2030704/19/20 030 CALCIUM 7.7* 7.9* 7.8* MAGNESIUM -- -- 0.80 PHOS 2.5 2.4* 1.4* Recent Labs 04/21/2041504/20/20 09 04/19/20 0302 INR 2.0 2.0 2.1 PT 23.1* 22.9* 24.6* PTT 42* 43* 39* No results for input(s): CK, TROPONINT in the last 168 hours. No results for input(s): POCGLU in the last 168 hours. No results for input(s): PROBNP in the last 168 hours. Micro Results for VIOLET COWAN ( ) as of 04/20/2020 12:46 Ref. Range 04/19/2020 05:46 Color UA Latest Ref Range: Yellow Dark Yellow Appearance UA Latest Ref Range: Clear Clear Spec [place] UA Latest Ref Range: 1.006 - 1.030 >=1.030 (A) pH UA Latest Ref Range: 5.0 - 8.0 6.0 Protein UA Latest Ref Range: Negative mg/dL 100 (A) Glucose UA Latest Ref Range: Negative mg/dL Negative Ketones UA Latest Ref Range: Negative mg/dL Negative Bilirubin UA Latest Ref Range: Negative mg/dL Large (A) Urobilinogen UA Latest Ref Range: Normal mg/dL Normal Blood UA Latest Ref Range: Negative mg/dL Negative Leukocytes UA Latest Ref Range: Negative mcL Small (A) Nitrite UA Latest Ref Range: Negative Positive (A) WBC UA Latest Ref Range: 0 - 5 /HPF 54 (H) RBC UA Latest Ref Range: 0 - 4 /HPF <1 Bacteria UA Latest Ref Range: None /HPF Many (A) Squam Epith UA Latest Ref Range: <=4 /HPF 11 (H) Culture Reflexed Unknown Yes NO Growth Imaging/Studies: POCUS today w/ more ascites Assessment: 39 y.o. female w/ recent ICU admission for hemorrhagic shock 2/2 PUD with course complicated by new diagnosis of alcoholic hepatitis and cirrhosis complicated by portal hypertension. Her representation, while initially concerning for infection, warranted closer monitoring and antibiotics were stopped yesterday. She has not had a fever yet. UA was initially concerning but she is without ANY sxs and culture was negative. Pt has remained afebrile, but has more ascites on POCUS today. Will consider diagnostic paracentesis. MELD continuing to mildly trend up. MELD-Na score: 27 at 04/21/2020 4:16 AM MELD score: 24 at 04/21/2020 4:16 AM Calculated from: Serum Creatinine: 0.52 mg/dL (Rounded to 1 mg/dL) at 04/20/2020 3:08 AM Serum Sodium: 131 mmol/L at 04/21/2020 4:16 AM Total Bilirubin: 12.5 mg/dL at 04/21/2020 4:16 AM INR(ratio): 2.0 at 04/21/2020 4:16 AM Age: 39 years 3 months #Fever #Leukocytosis - f/u OSH blood cultures - UCx negative - Off antibiotics given low concern for infection - No fever since admission TMax 37.8 04/19. Last dose of Zosyn 04/19 @ 0400 - continue to monitor for signs/symptoms of infection - consider diagnostic para to r/o SBP ?? # Alcoholic Cirrhosis c/b portal hypertension and coagulopathy # Alcohol Use Disorder - Alcoholic hepatitis vs DILI vs decompensated cirrhosis - GI consult, appreciated recs - trend daily MELD-Na, 27 today, 24 on admission - Will hold diuretic given low BPs today, defer to outpt - continue thiamine, folate and multi-Vit supplement - Recent Cirrhosis workup panel was largely unremarkable - IV VitK 10mg x 3 doses EOT 04/21 ?? # Recent Prepyloric Bleeding Ulcer # Anemia - S/p clips x4, GDA embolization -??s/p 5 total units PRBC -??continue PO??PPI bid - active T&S - trend daily CBC - avoid NSAIDs - hold DVT ppx for now and encourage ambulation and SCDs ?? # Routine: - Prophylaxis: GI: PPI DVT: Hold AC for now, SCDs and ambulate - Nutrition: low salt high protein diet - Code Status: Attempt Cardiopulmonary Resuscitation - Inpatient ? Isha Franklin MD, PGY-3 Medicine Blue Team (pgr. [id number]) Associated attestation - Milo Ivy MD - 04/21/2020 6:10 PM EDT Attending Attestation Please see Dr. Urias's note for details of the patient history [...] of two midnights or is on the [facility] inpatient only procedure list (status C) due to: acute alcoholic hepatitis Hyperbilirubinemia stable but no better. No fevers overnight. Leukocytosis worse. She now has a pocket of ascites amenable for diagnostic paracentesis. IR has kindly assisted us in obtaining fluid. If PMN >250 start antibiotics and monitor in-house for 24-48 hours. If PMN count not elevated can likely discharge to home within 24 hours but will need to start low-dose diuretic therapy with close outpatient follow-up for labs. Mala Arcos RN - 04/21/2020 2:47 AM EDT OUTCOME EVALUATION NOTE: ?? OUTCOME SUMMARY: ?? Violet is A&)x4. VSS on RA. BP is soft at baseline per patient 90-low 100s systolic. Had an increase in pain that disturbed her sleep and received a x1 order for Ultram and Violet able to sleep after taking medication. Independent with ambulation, voiding without difficulty in bathroom. Calllight in reach. ?? PLAN MOVING FORWARD: ?? Encourage fluids. Pain management. Discharge planning ?? INDIVIDUALIZED FALL PREVENTION INTERVENTIONS: ?? Patient-specific fall risk factors per assessment: [current deficits]: Weakness, pain, IV lines ?? Assistance [level of assistance required for transfers and ambulation]: Independent in room, SBA in the hallway ?? Supervision [direct monitoring required during toileting and ADLs]: Arms reach ?? Surveillance [continuous indirect monitoring]: Safety rounds, call light, room near nurses station ?? Patient-specific fall prevention interventions for sensory deficits provided, if applicable: Yes, personal items in reach. ? CPG GOAL OUTCOME EVALUATION: Ongoing Evin Gama - 04/20/2020 8:17 AM EDT Images from the original note were not included. Inpatient Medicine Progress Note ID: Violet Cowan is a 39 y.o. female with a PMH significant for alcohol use, likely alcoholic cirrhosis, medically managed microprolactinoma and recent admission for hemorrhagic shock secondary to a bleeding pre-pyloric ulcer s/p EGD clipping and IR embolization who presented in transfer from [facility] with fever, leukocytosis and jaundice. 24 hr events: - Pt admitted yesterday, antibiotics held, fever curve monitored - Not enough ascites for diagnostic papa per bedside ultrasound - No fever since admission TMax 37.8 04/19. Last dose of Zosyn 04/19 @ 0400 - No acute events overnight, mild abdominal RUQ pain per RN report Meds: Continuous Infusions: Scheduled Meds: ??? folic acid 1 mg Oral Daily ??? multivitamin with minerals 1 tablet Oral Daily ??? pantoprazole EC 40 mg Oral BID ??? thiamine 100 mg Oral Daily ??? sodium chloride 0.9 % (flush) 5 mL Intravenous BID ??? phytonadione, vitamin K (AQUA-MEPHYTON) IV 10 mg Intravenous Daily ? ? potassium, sodium phosphates 1.5 g Oral 4 Times Daily WC & HS PRN Meds:.sodium chloride 0.9 % (flush), lidocaine Vital Signs: Last value Range last 24 hrs Temperature Temp: 37.1 ??C (98.8 ??F) Temp: [36.8 ??C (98.2 ??F)-37.8 ??C (100 ??F)] Heart Rate Heart Rate: -- Blood Pressure BP: 92/58 BP: (91-97)/(56-71) Respiratory Rate Resp: 18 Resp: [16-18] SpO2 SpO2: 92 % SpO2: [88 %-94 %] I/O: Intake/Output Summary (Last 24 hours) at 04/20/2020 0817 Last data filed at 04/20/2020 0805 Gross per 24 hour Intake 600 ml Output 600 ml Net 0 ml Physical Exam: Gen: in bed in NAD; alert, oriented, interactive, diffusely jaundiced HEENT: icteric sclerae, MMM CV: RRR, normal S1/S2, no S3/S4, no m/r/g Resp: CTAB, normal WOB Abd: +BS, soft, ttp in RUQ to mild palpation, no rebound/guarding. No masses/bruises. Mildly distended. No shifting dullness appreciated. Ext: WWP, no cyanosis, no clubbing, 2+ DP pulses, 2+ RLE 1+ LLE pitting edema Neuro: no focal deficits noted, CN II-XII grossly intact, moves all extremities spontaneously Skin: no rashes, lesions, or ulcerations noted Labs Recent Labs 04/20/2030704/19/2030104/17/20 034 WBC 15.0* 13.3* 10.3* HGB 10.1* 9.7* 10.5* HCT 30.5* 29.3* 31.6* PLATELET 490* 405* 280 Recent Labs 04/20/2030704/19/2030104/17/20340 NA 133* 135 137 K 3.6 4.2 3.3* CL 102 103 104 CO2 23 21* 25 BUN 8 8 9 CREATININE 0.52* 0.69* 0.69* Recent Labs 04/20/2030704/19/2030104/17/2034004/15/20 0405 AST 144* 148* 136* 102* ALT 41* 41* 40* 26 ALKPHOS 116* 100 101 79 BILITOT 12.0* 11.1* 7.6* 7.3* BILIDIR >10.0* 9.4* -- 6.8* Recent Labs 04/20/2030704/19/2030104/17/20340 CALCIUM 7.9* 7.8* 8.0* MAGNESIUM -- 0.80 -- PHOS 2.4* 1.4* -- Recent Labs 04/19/2030104/17/2034004/16/20 034 INR 2.1 1.7 1.4 PT 24.6* 20.0* 16.1* PTT 39* 35 41* No results for input(s): CK, TROPONINT in the last 168 hours. No results for input(s): POCGLU in the last 168 hours. No results for input(s): PROBNP in the last 168 hours. Micro Results for VIOLET COWAN ( ) as of 04/20/2020 12:46 Ref. Range 04/19/2020 05:46 Color UA Latest Ref Range: Yellow Dark Yellow Appearance UA Latest Ref Range: Clear Clear Spec [place] UA Latest Ref Range: 1.006 - 1.030 >=1.030 (A) pH UA Latest Ref Range: 5.0 - 8.0 6.0 Protein UA Latest Ref Range: Negative mg/dL 100 (A) Glucose UA Latest Ref Range: Negative mg/dL Negative Ketones UA Latest Ref Range: Negative mg/dL Negative Bilirubin UA Latest Ref Range: Negative mg/dL Large (A) Urobilinogen UA Latest Ref Range: Normal mg/dL Normal Blood UA Latest Ref Range: Negative mg/dL Negative Leukocytes UA Latest Ref Range: Negative mcL Small (A) Nitrite UA Latest Ref Range: Negative Positive (A) WBC UA Latest Ref Range: 0 - 5 /HPF 54 (H) RBC UA Latest Ref Range: 0 - 4 /HPF <1 Bacteria UA Latest Ref Range: None /HPF Many (A) Squam Epith UA Latest Ref Range: <=4 /HPF 11 (H) Culture Reflexed Unknown Yes NO Growth Imaging/Studies: Bedside U/a yesterday w/ mild pelvic ascites, no tapable pocket. Assessment: 39 y.o. female w/ recent ICU admission for hemorrhagic shock 2/2 PUD with course complicated by new diagnosis of alcoholic hepatitis and cirrhosis complicated by portal hypertension. Her representation, while initially concerning for infection warranted closer monitoring and antibiotics were stopped yesterday. She has not had a fever yet, and is without tapable pocket for SBP r/o. UA was initially concerning but she is without ANY ssx and culture was negative. We plan to continue monitoring into tomorrow, giving us 48 hours of data off antibiotics, and then considering starting diuretic regiment given LE edema and mild ascites. MELD also continues to mildly trend up, speaking to heroverall medical frailty and the damage already done to her liver warranting careful r/o of more indolent process. MELD-Na score: 26 at 04/20/2020 3:08 AM MELD score: 24 at 04/20/2020 3:08 AM Calculated from: Serum Creatinine: 0.52 mg/dL (Rounded to 1 mg/dL) at 04/20/2020 3:08 AM Serum Sodium: 133 mmol/L at 04/20/2020 3:08 AM Total Bilirubin: 12.0 mg/dL at 04/20/2020 3:08 AM INR(ratio): 2.1 at 04/19/2020 3:02 AM Age: 39 years 3 months #Fever #Leukocytosis - f/u OSH blood cultures - f/u UA - Not enough ascites for diagnostic papa per u/s 04/19 - Off antibiotics given low concern for infection - No fever since admission TMax 37.8 04/19. Last dose of Zosyn 04/19 @ 0400 - continue to monitor for signs/symptoms of infection ?? # Alcoholic Cirrhosis c/b portal hypertension and coagulopathy # Alcohol Use Disorder - Alcoholic hepatitis vs DILI vs decompensated cirrhosis - GI consult, appreciated recs - trend daily MELD-Na labs 36 today, 25 on admission 04/19 - Will hold diuretic given low BPs today, defer to outpt - continue thiamine, folate and multi-Vit supplement - Recent Cirrhosis workup panel was largely unremarkable - IV VitK 10mg x 3 doses EOT 04/21 ?? # Recent Prepyloric Bleeding Ulcer # Anemia - S/p clips x4, GDA embolization -??s/p 5 total units PRBC -??continue PO??PPI bid - active T&S - trend daily CBC - avoid NSAIDs - hold DVT ppx for now and encourage ambulation and SCDs ?? # Routine: - Prophylaxis: GI: PPI DVT: Hold AC for now, SCDs and ambulate - Nutrition: low salt high protein diet - Code Status: Attempt Cardiopulmonary Resuscitation - Inpatient ? Evin Mckeon DO, PGY-3 Medicine Blue Team (pgr. [phone]) Associated attestation - Milo Ivy MD - 04/20/2020 2:00 PM EDT Attending Attestation Please see Dr. Mckeon's note for details of the patient history [...] of two midnights or is on the [facility] inpatient only procedure list (status C) due to: acute alcoholic hepatitis Hyperbilirubinemia worse. No fevers overnight. Monitor in-house of additional 24 hours given uptrending bilirubin and unclear cause of transient fever. I am inclined to believe the fever is actually due to alcoholic hepatitis. Plan to start diuretics tomorrow. Noa Barnes RN - 04/19/2020 3:05 PM EDT OUTCOME EVALUATION NOTE: OUTCOME SUMMARY: Violet had a good day. AAOx4. VSS. Afebrile. Pt denies nausea, diet advanced to regular. No complaints of pain at this time. Pt voiding adequate amounts via bathroom. Pt passing gas; pt had 1 BMs this shift. Pt rested in bed during shift. MD at bedside to discuss plan of care, antibiotics discontinued. No other complaints at this time. Will continue to monitor. PLAN MOVING FORWARD: Encourage independence. Encourage ambulation. Encourage fluids/nutrition. Maintain pain control. INDIVIDUALIZED FALL PREVENTION INTERVENTIONS: Patient-specific fall risk factors per assessment: [current deficits]: IV, generalized weakness Assistance [level of assistance required for transfers and ambulation]: independent Supervision [direct monitoring required during toileting and ADLs]: eyes on Surveillance [continuous indirect monitoring]: Masimo, purposeful rounding, call soni in reach Patient-specific fall prevention interventions for sensory deficits provided, if applicable: [X] Yes, environmental modifications, lights adjusted to task, non- skid socks CPG GOAL OUTCOME EVALUATION: Ongoing documented in this encounter H&P Notes Bahman Tenorio APRN - 04/21/2020 3:10 PM EDT Images from the original note were not included. INTERVENTIONAL RADIOLOGY FOCUSED H&P and PRE-PROCEDURE NOTE: PCP: Julieta Odell APRN Referring Provider: Nitin Planned Procedure: Planned procedure: dx paracentesis Dx paracentesis Order Questions Answers What is the purpose of the study? Diagnostic Reason for exam and clinical history: cirrhosis, assess for SBP Clinical information / fish questions: diagnostic only, in right later decubitus position patient has~2 x 4 cm pocket in RLQ quadrant What labs need to be collected during imaging study? lab orders placed and pended/held Is the patient on anticoagulant / anitplatelet therapy ? No Is the patient ? No Presenting Diagnosis/ Complaint: Violet Cowan is a 39 y.o. female ??with a PMH significant foralcohol use,??likely alcoholic??cirrhosis, medically managed microprolactinoma??and recent admissionfor hemorrhagic shock secondary to a bleeding pre-pyloric ulcer s/p EGD clipping and IR embolizationwho presented??in transfer from??[facility]??04/19 with fever, leukocytosis and jaundice.?? Trace ascites seen on CT. Dr. Ivy did a bedside US and found a small pocket (2 cm x 4cm0, which he was not comfortable accessing. Past Medical/Surgical History: Patient Active Problem List Diagnosis Code ??? GI bleed K92.2 ??? Jaundice R17 No past medical history on file. Past Surgical History: Procedure Laterality Date ??? IR ARTERIAL INTERVENTION 04/12/2020 IR Arterial Intervention 04/12/2020 Milo Steve, DO [facility] INTERVENTIONL RAD Medications: Scheduled Meds: ??? lidocaine 3 patch Transdermal Q24H And ??? lidocaine 3 patch Transdermal Q24H ??? folic acid 1 mg Oral Daily ??? multivitamin with minerals 1 tablet Oral Daily ??? pantoprazole EC 40 mg Oral BID ??? thiamine 100 mg Oral Daily ??? sodium chloride 0.9 % (flush) 5 mL Intravenous BID ? ? potassium, sodium phosphates 1.5 g Oral 4 Times Daily WC & HS Continuous Infusions: PRN Meds:.acetaminophen, sodium chloride 0.9 % (flush), lidocaine Allergies: Patient has no [...] file Gets together: Not on file Attends muslim service: Not on file Active member of [...] Labs: Lab Results Component Value Date WBC 17.1 (H) 04/21/2020 HCT 29.6 (L) 04/21/2020 PLATELET 479 (H) 04/21/2020 INR 2.0 04/21/2020 BUN 7 (L) 04/21/2020 CREATININE Not Perf 04/21/2020 ALKPHOS 113 (H) 04/21/2020 AST 134 (H) 04/21/2020 ALBUMIN 2.3 (L) 04/21/2020 BILIDIR >10.0 (H) 04/21/2020 BILITOT 12.5 (H) 04/21/2020 ALT 37 (H) 04/21/2020 PROT 4.9 (L) 04/21/2020 K 3.5 04/21/2020 Imagin/18 Assessment: 39 y.o. female with history as above who presents for diagnostic paracentesis. Plan: Plan Planned procedure: dx paracentesis Labs to be performed day of procedure: No labs Sedation: No Sedation Prophylactic antibiotic : None Contrast: No contrast Additional medications for procedure: Lidocaine Medications to discontinue (and days held): None Planned access site: TBD; US in preroom. Position: Supine Cytopathology presence needed: No Consent: Pending 04/21/2020 Hardeep Lindsey DO - 04/19/2020 2:38 AM EDT History and Physical Examination Patient Name: Violet Cowan Admit Date: 04/19/2020 Hospital Day: 0 Patient Description: Violet Cowan??is a 39 y.o.??female??with a PMH significant for alcohol use, likely alcoholic cirrhosis, medically managed microprolactinoma and recent admission for hemorrhagic shock secondary to a bleeding pre-pyloric ulcer s/p EGD clipping and IR embolization who presentedin transfer from [facility] with fever, leukocytosis and jaundice. Active Hospital Problems Diagnosis ??? Jaundice Resolved Hospital Problems No resolved problems to display. Active Non-Hospital Problems Diagnosis ??? GI bleed Subjective: HPI: Violet is a 39 yr old F with PMHx history of alcohol use disorder, LEONA and pituitary tumor who was discharged from [facility] yesterday after an admission for a bleeding pre-pyloric ulcer. He was admittedto ICU from 04/11-04/14 with hemorrhagic shock then on hospital medicine from 04/14 to discharge on 04/17. Bleeding source was found to be secondary to a vigorously bleeding pre-pyloric ulcer that required4-clips and then IR embolization to eventually achieve stabilization. During evaluation of cirrhosis, a RUQUS was concerning for PVT, thus MRI was obtained showed patent hepatic and portal vessels. She was also found to have progressively worsening liver enzymes, especially rising direct bili that was thought to be related to alcoholic hepatitis. She was managed for SBPppx while inpt w/ CTX and discharged on ciprofloxacin to complete 7 day total course per inpatient GI recommendation. Violet arrived home on afternoon of 04/17, she generally felt well and excited to be home with her4 yr old son and . Other than feeling fatigued and some lower extremity edema, she had no complaints. She ate dinner, appetite is improving, no N/V, having about 3 BMs per day which is normal for her since admission, no fevers, continued to have mild intermittent RUQ pain. Denies any ETOH use since being home, and adamant that she will never drink ETOH again. She reports that she continues to have mild RUQ pain that was present and worse during recent hospitalization. The pain is not provokedby eating/drinking or exertion, but is positional and seems to worsen when she lays on her right side. Overall, she feels that the pain is improving, she did have onetime during recent hospitalization that the pain was severe and felt like labor pains and lasted 6 hours. Yesterday morning she woke up again feeling fine other than some JUAN and presented to PCP for scheduled hospital f/u. Her temp was checked upon entering the PCP office and it was normal, and then upon checking temp with vital she was febrile to >102 with 2 checks. However, she denied feeling febrile, no chills or rigors and no new symptoms with these fevers she was instructed to present to the ED.On arrival to OSH she was tachycardic to the 110s, BP 113/76, afebrile and saturating well on RA. She remained afebrile at OSH. Bedside US was performed and significant for small amount ascites that was deemed not enough for paracentesis. Patient had fever workup with blood cultures x2, UA and CXR. She was started on IVFs and given 2g of ceftriaxone at 1930. OSH Diagnostics: WBC 15.5 (78% [employer])/ Hgb 12.2/ PLT 501 BMP wnls AST 183 ALT 55 ALKP 135 Tbili 13.9. Alb 2.[address] A/P with IV constrast: - small b/l pleural effusions and atelectasis - Diffuse decrease in hepatic parenchymal density - Biliary system w/o stones or dilation - no splenomegaly - diffuse stomach wall thickening - mild-mod ascites Upon seeing Violet this morning, she hemodynamically stable, pleasant and cooperative. Denies anyabdominal discomfort, denies any subjective fevers or chills. And denies any new localizing infectious symptoms, she continues to have a stable dry cough s/p extubation. Took first dose of cipro yesterday morning, Denied any new supplements/ herbals at home, no further ETOH use. ROS: Constitutional - no fevers, chills, night sweats, change in appetite, weight loss or gain, fatigue HEENT - No headaches, no difficulty swallowing, changes in hearing/vision, no nasal congestion/postnasal drip Respiratory - no SOB, orthopnea, PND, wheeze, cough Cardiovascular - no CP, palpitations, edema Gastrointestinal - abdominal pain, nausea, vomiting, GERD, constipation, diarrhea, blood in stool - no new difficulty urinating, incontinence, dysuria, frequency or urgency Musculoskeletal - no new weakness, arthralgias, myalgias or gait disturbance Skin - no new rashes Allergies: No Known Allergies Past Medical History: No past medical history on file. Past Surgical History: Procedure Laterality Date ??? IR ARTERIAL INTERVENTION 04/12/2020 IR Arterial Intervention 04/12/2020 Milo Steve, DO [facility] INTERVENTIONL RAD Patient Active Problem List Diagnosis ??? Jaundice ??? GI bleed Social History: Social History Socioeconomic History ??? [...] file Gets together: Not on file Attends muslim service: Not on file Active member of [...] Social History Narrative ??? Not on file Family History: Father with Alcoholic Cirrhosis Objective: Vitals: T Temp: [36.7 ??C (98.1 ??F)] HR Heart Rate: -- BP BP: (99)/(59) RR Resp: [16] SpO2 SpO2: [92 %] IO No intake/output data recorded. Wt Last Admit Physical Exam: GEN Pleasant middle aged female, resting in bed, alert and oriented, in NAD HEENT Scleral icterus present, oropharynx clear, moist mucus membranes CV Tachy but regular, normal S1/S2, no murmurs/rubs/gallops appreciated, radial pulses easily palpable PULM Normal respiratory effort, clear to auscultation bilaterally, but decreased breath sounds at bases b/l GI Abdomen mildly distended without obvious ascites, very mild tenderness to RUQ, + bowel sounds, noguarding, no rebound No suprapubic or CVA tenderness MSK 1+ peripheral edema b/l appreciated, no LE erythema or pain to palpation, no U/L swelling DERM Skin warm and dry. No rashes appreciated. NEURO General: Alert and oriented x3, no asterixus Labs: Reviewed labs pertinent as follows; Pending, OSH labs as above Prior Cirrhosis workup labs: Ref. Range 04/14/2020 16:50 A1AT Latest Ref Range: 90 - 200 mg/dL 155 Mitochon Ab Latest Ref Range: <0.1 (Negative) U <0.1 OXANA Latest Ref Range: Neg Neg IgG Latest Ref Range: 700 - 1,600 mg/dL 1,008 IgA Latest Ref Range: 70 - 400 mg/dL 258 IgM Latest Ref Range: 40 - 230 mg/dL 153 Marcelina/Kid Mirco1 Latest Ref Range: <=20.0 (Negative) U <5.0 Sm Muscle Ab Latest Ref Range: Negative Negative TTG IgA Ab Latest Ref Range: 0.1 - 10.0 u/ml 0.6 - Ceruloplasmin (04/14): WNL - OXANA (04/14): Negative - Iron (04/14): WNL - HAV Ab IgM (04/12): Negative. IgG: Positive - HCV Ab: Negative - HBV S Ab: Positive - H. Pylori stool Ag (04/16): Negative - HIV 4th gen screen w/ p24 Ag (04/14): Negative - Lupus Anticoagulant (04/14): WNL - DRVVT (04/14): WNL - Silica clotting time (04/14): WNL Radiology/Studies: MRI abdomen wwo (04/14): 1. ??Significantly limited examination, as detailed above. 2. ??Hepatomegaly = 21.1 cm. 3. ??Multifocal hepatic steatosis, most pronounced within the left hepatic lobe. Within the limits of the examination, no focal suspicious hepatic lesions. If screening for cirrhotic changes / hepatocellular carcinoma is required, future evaluations should be with CT of the Abdomen (Hepatic Protocol - without and with intravenous contrast) given significant respiratory motion artifact and susceptibility artifact from endovascular occluding devices. 4. ??Respiratory motion artifact is most pronounced on postcontrast images. ??The hepatic veins and portal veins are patent; however, evaluation for partial thrombosis is nondiagnostic. 5. ??Interval increase but still small ascites, predominantly within the pelvis. Increase in edema throughout the mesentery. 6. ??New small bilateral pleural fluid with associated compressive atelectasis. 7. ??Interval development of diffuse anasarca, which may be related to hypervolemia, hypoproteinemia, or combination thereof. ? US Abdomen Vascular limited hepatology (04/16): ?Heterogeneous echogenic coarse parenchymal ??echotexture ??without focal lesion. Hepatofugal flow patent main ??portal vein. Patent ??hepatopedal flow in the left portal vein without ??sonographically evident ??recanalized umbilical vein. To and fro flow in the patent ??right portal vein. ??Portal venous hypertension characterized by ascites, ??bilateral pleural effusions ??and mild splenomegaly. Assessment and Plan Violet Cowan??is a 39 y.o.??female??with a PMH significant for alcohol use, likely alcoholic cirrhosis, medically managed microprolactinoma and recent admission for hemorrhagic shock secondary toa bleeding pre-pyloric ulcer s/p EGD clipping and IR embolization who presented in transfer from [facility] with fever, leukocytosis and jaundice. Ms. Cowan is hemodynamically stable at this time and with reassuring abdominal exam. She is mildly tachycardic and with soft BP, but this is relatively stable from vitals on discharge. She has persistent RUQ pain that is very mild at this time and recent imaging without any biliary disease, thus fav or liver capsule stretch as the cause of her pain. Unclear what to make of patients fever at PCP office that was found with skin surface thermometer, as patient has other clay been a febrile and subjectively did not feel febrile even with temps of >102. She is without any localizing infectious symptoms at this time, beside the mild RUQ. An ascending cholangitis seems less likely given the lack of biliary pathology on imaging, but will monitor patient closely, SBP also seems less likely given thatpatient has been on ppx, but will consider IR-guided para in the morning. Fevers and leukocytosis could be related to ongoing liver inflammation, but given concern for infectious cause with evidence ofsystemic inflammation (fever, tachy, leukocytosis, thrombocytosis) and recent hospitalization will cover broadly tonight with plan to narrow if patient remains stable. Otherwise, will need to f/u on OSH blood cultures and monitor for any recurrent fevers. Other concerning aspect in this case is the patients rising Tbili levels that has almost doubled in days since discharge as well as evidence of poor synthetic function including elevated INR and low albumin. Patient without signs of fulminant liver failure at this time as mentating well. Unclear causeof this hyperbili; with normal biliary system on recent CT and recent prior RUQUS. ?decompensated cirrhosis vs decompensated alcoholic hepatitis. This could be decompensated alcoholic hepatitis, given fevers, RUQ pain, leukocytosis jaundice, AST>ALT ratio, but likely a poor prognosis given worsening of liver panel now and patient is denies any further ETOH use, also the lack of thrombocytopenia speaks against a longstanding cirrhosis. Maddrey DF of 66.8, however steroids likely to be unhelpful atthis time point and contraindicated given recent GI bleed. I also do wonder if this is related to DILI, with drug highest on my differential being ceftriaxone. According to [employer], ceftriaxone-related liver injury typically is due to biliary sludge and subsequent cholestatic pattern that occurs within 1 week of initiation of the medication. MELD-Na score: 25 at 04/19/2020 3:02 AM MELD score: 24 at 04/19/2020 3:02 AM Calculated from: Serum Creatinine: 0.69 mg/dL (Rounded to 1 mg/dL) at 04/19/2020 3:02 AM Serum Sodium: 135 mmol/L at 04/19/2020 3:02 AM Total Bilirubin: 11.1 mg/dL at 04/19/2020 3:02 AM INR(ratio): 2.1 at 04/19/2020 3:02 AM Age: 39 years 3 months #Fever #Leukocytosis - f/u OSH blood cultures - f/u UA - consider diagnostic para in the morning, but unlikely to have yield given empiric antibiotics - hold ceftriaxone and empirically start pip-tazo overnight, deescalate tomorrow if patient remains stable - continue to monitor for signs/symptoms of infection # Hyperbilirubinemia # Acute liver injury # ?Alcoholic Hepatitis vs DILI # Alcoholic Cirrhosis # Ascites # Coagulapathy # Alcohol Use Disorder - Alcoholic hepatitis vs DILI vs decompensated cirrhosis - hold ceftriaxone, will discuss role of NAC with GI if suspicion of DILI is high - GI consult, appreciated recs - trend daily MELD-Na labs - will need consideration of initiation of diuretics prior to discharge - continue thiamine, folate and multi-Vit supplement - Recent Cirrhosis workup panel was largely unremarkable - IV VitK 10mg x 3 doses #Recent Prepyloric Bleeding Ulcer #Anemia - S/p clips x4, GDA embolization -??s/p 5 total units PRBC - continue PO PPI bid - active T&S - trend daily CBC - avoid NSAIDs - hold DVT ppx for now and encourage ambulation and SCDs # Routine: - Prophylaxis: GI: PPI DVT: Hold AC for now, SCDs and ambulate - Nutrition: NPO diet (Give Meds) - Code Status: Attempt Cardiopulmonary Resuscitation - Inpatient Priyankbelia Mo César, 04/19/2020 Internal Medicine, PGY 3 Pager #[phone] Associated attestation - Milo Ivy MD - 04/19/2020 4:23 PM EDT Attending Attestation Please see Dr. Lindsey's note for details of the patient history [...] of two midnights or is on the [facility] inpatient only procedure list (status C) due to: alcoholic hepatitis Mrs. Cowan reportedly had a fever at her primary care provider's office, although in her telling she had normal temperature (~99F) juxtaposed with a fever (~102 F) and then normal temperatures all within a 20-30 minute period. All measurements were taken with a transcutaneous thermometer. At [facility] she had no documented fevers (in my review of her transfer records) and did not receive anti-pyretics there (from the MAR available for my review). Given this and her general report of feeling much improved today, I am not sure she was every actually febrile. Even if she was, this may all be due tolingering alcoholic hepatitis, which would also explain her variable hyperbilirubinemia. She has no localizing symptoms of infection. She had some vague right upper quadrant discomfort which was short-lived and is now resolved. On my bedside ultrasound exam, she has trace to non-existent abdominal ascites and only small volume pelvic ascites, neither of which are amenable to paracentesis. We will stop antibiotics and monitor for fevers or any development of localizing signs/symptoms of infection. GIconsulted, appreciate their involvement. Continue to trend LFTs. Follow-up outside hospital cultures. Anticipate starting diuresis as soon as 04/20 for lower extremity edema and the small volume ascites. documented in this encounter Miscellaneous Notes Plan of Care - Donna Antonio RN - 04/22/2020 4:16 PM EDT Problem: Patient Care Overview Goal: Plan of Care Review Outcome: Outcome (s) achieved Date Met: 04/22/20 04/22/20 0741 Coping/Psychosocial Plan Of Care Reviewed With patient OUTCOME EVALUATION NOTE: OUTCOME SUMMARY: Pt A+O x4. VSS on RA. Pt c/o of pain in RUQ, tylenol given w/ good effect. Abdominal US obtained. Plan to discharge this afternoon PLAN MOVING FORWARD: DC INDIVIDUALIZED FALL PREVENTION INTERVENTIONS: Patient-specific fall risk factors per assessment: [current deficits]: Generalized weakness, IV sites Assistance [level of assistance required for transfers and ambulation]: IND Supervision [direct monitoring required during toileting and ADLs]: IND Surveillance [continuous indirect monitoring]: Purposeful rounding, safety checks, call soni within reach Patient-specific fall prevention interventions for sensory deficits provided, if applicable: [X] No CPG GOAL OUTCOME EVALUATION: Plan of Care - Giovanna Cruz RN - 04/22/2020 12:53 AM EDT Problem: Patient Care Overview Goal: Plan of Care Review Outcome: Ongoing (Interventions Implemented as Appropriate) 04/21/202113 Coping/Psychosocial Plan Of Care Reviewed With patient OUTCOME EVALUATION NOTE: OUTCOME SUMMARY: Alert and oriented x4, VSS on RA, assessment as documented. C/o 10/08 abd pain. Meds given per SEP. Ambulating independently to bathroom. Resting comfortably between care. No acute events, will continue to monitor and page MD with updates. PLAN MOVING FORWARD: Maintain safety, d/c planning INDIVIDUALIZED FALL PREVENTION INTERVENTIONS: Patient-specific fall risk factors per assessment: [current deficits]: Gen weakness, IV access, hospenvironment Assistance [level of assistance required for transfers and ambulation]: ind Supervision [direct monitoring required during toileting and ADLs]: ind Surveillance [continuous indirect monitoring]: Call soni within reach, bed alarm on, room near nurses station, masimo on, hourly rounding utilized. Patient-specific fall prevention interventions for sensory deficits provided, if applicable: [X] N/A CPG GOAL OUTCOME EVALUATION: Goal: Fall Prevention-Safe Patient Handling Outcome: Ongoing (Interventions Implemented as Appropriate) 04/21/202113 Logan Fall Risk History of Falling 0 Secondary Diagnosis 15 Ambulatory Aids 0 Intravenous Therapy/Heparin/Saline Lock 20 Gait/Transferring 0 Mental Status 0 Score 35 OTHER Logan Fall Risk Med Restraint Interventions Safety Promotion/Fall Prevention activity supervised;fall prevention program maintained;nonskid shoes/slippers when out of bed;safety round/check completed Positioning Body Position independent Activity Activity Type activity adjusted per tolerance Activity Assistance Provided independent Assistive Device Utilized none Goal: Infection Control Outcome: Ongoing (Interventions Implemented as Appropriate) 04/21/202113 Safety Interventions Isolation Precautions standard precautions maintained Infection Prevention rest/sleep promoted;environmental surveillance performed Coping Strategies Supportive Measures self-care encouraged Initial Assessments - Susi Kumar RN - 04/21/2020 6:12 PM EDT Office of Care Management Initial Assessment Susi Kumar RN reviewed record and discussed patient with Care Team. Source of Information: Patient, Chart, Care team Introduced self/reviewed role; services accepted. Reason for Hospitalization: abd pain, fever, rising Tbili levels Last COVID test date and time: 04/11/2020 at 1633 No past medical history on file. Hospitalizations Within the Past 30 Days: Yes recent ICU admission 04/11/20- 04/17/20 Anticipated Length Of Stay (If known): 3 days Current Decision-Making Capacity: alert and oriented X 4 Advance Care Planning: declined to complete. would be surrogate decision maker if needed Current Coping/Education/Information Needs: Workup in process, may benefit from BIT consult Current Functional Ability: Independent Functional Status Prior to Admission: Fully independent, works. Home Environment: Lives with her and 4 year [address] Social & Family Supports/Community Resources: I have a great support system, a great , friends, work friends, family Behavioral Health History: anxiety Substance Use/Abuse: ETOH hx. May benefit from BIT follow up but reports will never drink again Other Pertinent/Service Specific Information: n/a Health/Prescription Coverage: Primary Insurance: [employer] [place] Secondary Insurance: N/A Prescription Coverage: Yes [facility]erred [facility]acy[facility] Other: n/a Primary Care Provider: Julieta Odell, [employer] TECH[employer]ICIAN [phone] Patient/Caregiver Goals of Treatment: I am very tired Potential Needs for Transition of Care: Rehab/SNF: n/a Home Health: n/a DME: none needed Dialysis: n/a Community Resources: AA Transportation: Other: n/a Anticipated Barriers to Discharge/Special Considerations: None identified Assessment: 39 y.o.??female??with a PMH significant for alcohol use, likely alcoholic cirrhosis, medically managed microprolactinoma and recent admission for hemorrhagic shock secondary to a bleeding pre-pyloric ulcer s/p EGD clipping and IR embolization who presented in transfer from [facility] with fever, leukocytosis and jaundice. Now s/p diagnostic paracentesis. Plan: DC to home/self care. No home care needs identified. If PMN >250 start antibiotics and monitor in-house for 24-48 hours. If PMN count not elevated can likely discharge to home within 24 hours. A member of the Care Management team will continue to monitor progress, follow for continuity of care and assist with transition of care planning. Susi Kumar RN Pager [phone] Plan of Care - Lizbeth Smith RN - 04/21/2020 3:31 PM EDT OUTCOME EVALUATION NOTE: OUTCOME SUMMARY: Violet had a good shift. A&O X 4. VSS on RA, though tachy with activity. Pain controlled withcurrent regimen. Urine output adequate via bathroom. IR for paracentesis. Encouraged PO intake. Encouraged mobility. Will continue to monitor. PLAN MOVING FORWARD: Encourage mobility, IS, Monitor Is and Os. INDIVIDUALIZED FALL PREVENTION INTERVENTIONS: Patient-specific fall risk factors per assessment: [current deficits]: Weakness, IVs Assistance [level of assistance required for transfers and ambulation]: Independent Supervision [direct monitoring required during toileting and ADLs]: Eyes on Surveillance [continuous indirect monitoring]: Call soni within reach, purposeful rounding. Patient-specific fall prevention interventions for sensory deficits provided, if applicable: Yes CPG GOAL OUTCOME EVALUATION: Bina Manzanares RN - 04/21/2020 3:30 PM EDT ANGIO NURSING DATABASE Name: VIOLET COWAN Date of : 1980 AGE: 39 y.o. Address: [place] [address] (home) Mobile: Telephone Information: Referring Provider: Unknown REASON FOR VISIT: Diagnostic Paracentesis What is the purpose of the study? Diagnostic Reason for exam and clinical history: cirrhosis, assess for SBP Clinical information / fish questions: diagnostic only, in right later decubitus position patient has~2 x 4 cm pocket in RLQ quadrant What labs need to be collected during imaging study? lab orders placed and pended/held Is the patient on anticoagulant / anitplatelet therapy ? No Is the patient ? No Is the patient taking any anticoagulants and/or antiplatelet meds? No Is patient awake, alert, and consentable? Yes Does patient need assist to stand? No Does Patient have any mobility limitations (e.g. spinal precautions) No Does patient require constant supervision? No Is patient over 450 lbs (200 kg) No Does patient have a pacemaker? No Does patient have a Chest Tube? No Is there a language / communication barrier? No Does patient have any additional special needs or accommodation required? No Plan Planned procedure: dx paracentesis (04/21/201515) Labs to be performed day of procedure: No labs (04/21/201515) Sedation: No Sedation (04/21/201515) Prophylactic antibiotic : None (04/21/201515) Contrast: No contrast (04/21/201515) Additional medications for procedure: Lidocaine (04/21/201515) Medications to discontinue (and days held): None (04/21/201515) Planned access site: TBD; US in preroom. (04/21/201515) Position: Supine (04/21/201515) Cytopathology presence needed: No (04/21/201515) Consent: Pending (04/21/201515) No Known Allergies Pertinent PMH: Patient Active Problem List Diagnosis Code ??? GI bleed K92.2 ??? Jaundice R17 Date/Procedure Meds Given/Comments 04/11/20 angiography with multiple coils for embolization in GDA. ICU patient ??04/21/20 Diagnostic Paracentesis 40 cc ??Local only ? 1619 to procedure room 3 via stretcher. Onto table supine. All monitors, O2, safety strap in place. Meds per protocol. Laboratory Results: Lab Results Component Value Date INR 2.0 04/21/2020 Lab Results Component Value Date CREATININE Not Perf 04/21/2020 Lab Results Component Value Date K 3.5 04/21/2020 Lab Results Component Value Date PLATELET 479 (H) 04/21/2020 ] Plan of Care - Lizbeth Smith RN - 04/20/2020 2:32 PM EDT OUTCOME EVALUATION NOTE: OUTCOME SUMMARY: Violet had a good shift, napped in the afternoon. A&O X 4. VSS on RA, BP continue to be in the 90s. Pain controlled with current regimen. Urine output adequate via toilet. PO intake low. Will continue to monitor. PLAN MOVING FORWARD: Encourage mobility, IS, pain management, encourage PO intake. INDIVIDUALIZED FALL PREVENTION INTERVENTIONS: Patient-specific fall risk factors per assessment: [current deficits]: IVs, weakness Assistance [level of assistance required for transfers and ambulation]: Independent in room, SBA in the hallway Supervision [direct monitoring required during toileting and ADLs]: Eyes on Surveillance [continuous indirect monitoring]: Call soni within reach, purposeful rounding. Patient-specific fall prevention interventions for sensory deficits provided, if applicable: Yes CPG GOAL OUTCOME EVALUATION: Plan of Care - Vero Swanson RN - 04/20/2020 3:41 AM EDT OUTCOME EVALUATION NOTE: OUTCOME SUMMARY: A+Ox4, VSS on RA except tachycardic to low 100s, continues w/soft BP to 90s SBP, asymptomatic.Pt SBA/IND OOB. Pt c/o pain in RUQ w/movement, declined offers for intervention. Pt sleeping between care, safety maintained. PLAN MOVING FORWARD: Liver work-up INDIVIDUALIZED FALL PREVENTION INTERVENTIONS: Patient-specific fall risk factors per assessment: [current deficits]: IV sites, secondary diagnoses Assistance [level of assistance required for transfers and ambulation]: SBA/IND Supervision [direct monitoring required during toileting and ADLs]: Eyes-on Surveillance [continuous indirect monitoring]: Masimo, bed alarm, purposeful rounding and safety checks Patient-specific fall prevention interventions for sensory deficits provided, if applicable: [X] N/A CPG GOAL OUTCOME EVALUATION: Consult Note - Malaika Davidson MD - 04/19/2020 7:26 AM EDT GASTROENTEROLOGY & HEPATOLOGY CONSULTATION Initial Consult Note Requesting Provider: Milo Ivy MD REASON FOR CONSULTATION Elevated liver tests HISTORY OF PRESENT ILLNESS Violet Cowan is a 39 y.o. F w/PMH of EtOH dependence, pituitary tumor, and [facility] for UGIB 2/2 gastric ulcer now admitted with elevated LFTs in the setting of likelyEtOH related cirrhosis. Since her discharge, she was seen in her PCP's office where her temp was initially normal upon entrance to the hospital but 103, then 102 in there PCPs office. She was otherwise asymptomatic and was sent to the ED. In the ED her temp was 99. There labs were checked and she was found to have ongoing elevated LFTs (as below). CT A/P was obtained which showed mild to moderate ascites, no PVT, and no significant changes. She was arreaga cultured. She did not have enough ascites for paracentesis. She is otherwise feeling well and denies abdominal pain. Continues to be jaundiced. She has not had EtOH since 04/09/20 and states that she is planning on going to counseling. Her father was a heavy alcoholic and from liver cirrhosis. ROS: 10 systems reviewed, pertinent positives and negatives as noted in HPI PAST MEDICAL/SURGICAL HISTORY: No past medical history on file. MEDICATIONS ??? folic acid 1 mg Oral Daily ??? multivitamin with minerals 1 tablet Oral Daily ??? pantoprazole EC 40 mg Oral BID ??? thiamine 100 mg Oral Daily ??? sodium chloride 0.9 % (flush) 5 mL Intravenous BID ??? piperacillin-tazobactam 3.375 g Intravenous Q8H ??? phytonadione, vitamin K (AQUA-MEPHYTON) IV 10 mg Intravenous Daily ??? sodium phosphate 15 mmol Intravenous Q4H sodium chloride 0.9 % (flush), lidocaine ALLERGIES No Known Allergies SOCIAL HISTORY Social [...] file Gets together: Not on file Attends muslim service: Not on file Active member of [...] Narrative ??? Not on file FAMILY HISTORY No family history on file. Vitals: 04/19/20 0143 04/19/20 0352 BP: 99/59 96/55 BP Location (NBP): Right arm Patient Position: Lying Resp: 16 Temp: 36.7 ??C (98.1 ??F) 37.2 ??C (99 ??F) TempSrc: Oral Oral SpO2: 92% 91% PHYSICAL EXAM GENERAL: No acute distress, alert and oriented HEENT: AT/NC, sclerae icteric, moist mucous membranes CHEST: CTA CARDIAC: RRR, normal S1/S2, no appreciable murmurs ABDOMEN: Soft, normoactive bowel sounds, non-tender, mild distension EXT: Warm, 1+ pitting edema in BLE NEURO: Grossly intact, moves all extremities SKIN:jaundiced LABS: Lab Results Component Value Date Sodium 135 04/19/2020 Potassium 4.2 04/19/2020 Chloride 103 04/19/2020 CO2 21 (L) 04/19/2020 BUN 8 04/19/2020 Creatinine 0.69 (L) 04/19/2020 Glucose Lvl 96 04/19/2020 CBC Lab Results Component Value Date WBC 13.3 (H) 04/19/2020 Hemoglobin 9.7 (L) 04/19/2020 Hematocrit 29.3 (L) 04/19/2020 Platelets 405 (H) 04/19/2020 LFT's Lab Results Component Value Date Alk Phos 100 04/19/2020 AST 148 (H) 04/19/2020 Albumin 2.5 (L) 04/19/2020 Bili, Direct 9.4 (H) 04/19/2020 Total Bilirubin 11.1 (H) 04/19/2020 ALT 41 (H) 04/19/2020 Total Protein 5.1 (L) 04/19/2020 IMAGING: Reviewed in [facility] ENDOSCOPY: Reviewed in [facility] IMPRESSION: 39 y/o F w/PMH of EtOH dependence, pituitary tumor, and recent admission to [facility] (04/11-04/17) for UGIB 2/2 gastric ulcer now admitted with elevated LFTs in the setting of likely EtOH related cirrhosis. She appears to have cirrhosis based on signs of portal hypertension (splenomegaly, ascites) as well as coarse echotexture of the liver on imaging. Recent hepatitis serologies and autoimmune testing were negative. She does have super imposed alcoholic hepatitis which will cause expected ongoing elevated liver tests which can take weeks to months to improve. Although Tushar's DF is 69, would not give steroids due to her elevated risk of infection in the setting of her recent upper GI bleed. We did discuss this new diagnosis of cirrhosis with her today. It is not clear that she had a true fever based on her story. However, as she is high risk, would recommend complete infectious workup prior to discharge planning. Agree with EtOH counseling and abstinence. She should follow up in our liver clinic after discharge. MELD-Na score: 25 at 04/19/2020 3:02 AM MELD score: 24 at 04/19/2020 3:02 AM Calculated from: Serum Creatinine: 0.69 mg/dL (Rounded to 1 mg/dL) at 04/19/2020 3:02 AM Serum Sodium: 135 mmol/L at 04/19/2020 3:02 AM Total Bilirubin: 11.1 mg/dL at 04/19/2020 3:02 AM INR(ratio): 2.1 at 04/19/2020 3:02 AM Age: 39 years 3 months RECOMMENDATIONS: - Trend CBC, CMP, INR - Infectious workup - Low sodium, high protein diet - Continued alcohol abstinence, outpatient counseling - She should follow up in our liver clinic on discharge, please let us know and we can help arrange this. The plan as outlined above was discussed with Dr. Costa. Malaika Davidson MD Gastroenterology Fellow Pager #[phone] Associated attestation - Arminda Costa MD - 04/19/2020 8:41 PM EDT ATTENDING ATTESTATION: I have seen and evaluated the patient with with Dr. Davidson. I have reviewed the fellow's history during the encounter and I agree with the details as written above. My physical examination confirms the above findings. The assessment and plan were formulated in discussion with me at the time of the encounter and I agree with them as documented. Arminda Costa MD Gastroenterology Attending Pager [phone] documented in this encounter Plan of Treatment Scheduled Referrals Name Type Priority Associated Order Schedule Diagnoses Referral to Outpatient Routine Alcoholic Ordered: Gastroenterology Referral hepatitis with 0 ascites documented as of this encounter Procedures Procedure Name Priority Date/Time Associated Comments Diagnosis US ABDOMEN VASCULAR Routine 04/22/2020 2:47 PM Re sults for this LIMITED - HEPATOLOGY EDT procedu re are in PROTOCOL the results section. HEMOGRAM Routine 04/22/2020 7:00 AM Results f or this EDT procedure are i n the results section. DIFFERENTIAL, AUTOMATED Routine 04/22/2020 7:00 AM Results for this EDT procedure are i n the results section. HC CBC,PLT & AUTO DIFF Routine 04/22/2020 7:00 AM EDT HC PHOSPHORUS, SERUM Routine 04/22/2020 7:00 AM R esults for this EDT procedure are i n the results section. HEPATIC FUNCTION PANEL Routine 04/22/2020 7:00 AM Results for this EDT procedure are i n the results section. BASIC METABOLIC PANEL Routine 04/22/2020 7:00 AM Results for this (NON-FASTING) EDT procedure are in the results section. IR PARACENTESIS Routine 04/21/2020 4:42 PM Result s for this EDT procedure are i n the results section. ANAEROBIC CULTURE Routine 04/21/2020 4:31 PM Resu lts for this EDT procedure are i n the results section. HC BODY FLUID CULTURE Routine 04/21/2020 4:31 PM EDT BODY FLUID CULTURE, Routine 04/21/2020 4:31 PM Re sults for this AEROBIC EDT procedure are i n the results section. HC BODY FLUID CELL CT Routine 04/21/2020 4:31 PM Results for this W/DIFF EDT procedure are i n the results section. HC ALBUMIN, BODY FLUID Routine 04/21/2020 4:31 PM Results for this EDT procedure are i n the results section. HEMOGRAM Routine 04/21/2020 4:16 AM Results f or this EDT procedure are i n the results section. DIFFERENTIAL, AUTOMATED Routine 04/21/2020 4:16 AM Results for this EDT procedure are i n the results section. HC PARTIAL Routine 04/21/2020 4:16 AM Results f or this THROMBOPLASTIN TIME EDT procedur e are in the results section. HC PROTHROMBIN TIME Routine 04/21/2020 4:16 AM Re sults for this EDT procedure are i n the results section. HC CBC,PLT & AUTO DIFF Routine 04/21/2020 4:16 AM EDT HC PHOSPHORUS, SERUM Routine 04/21/2020 4:16 AM R esults for this EDT procedure are i n the results section. HEPATIC FUNCTION PANEL Routine 04/21/2020 4:16 AM Results for this EDT procedure are i n the results section. BASIC METABOLIC PANEL Routine 04/21/2020 4:16 AM Results for this (NON-FASTING) EDT procedure are in the results section. HC PARTIAL Routine 04/20/2020 9:05 AM Results f or this THROMBOPLASTIN TIME EDT procedur e are in the results section. HC VENIPUNCTURE Routine 04/20/2020 9:05 AM Result s for this EDT procedure are i n the results section. HEMOGRAM Routine 04/20/2020 3:08 AM Results f or this EDT procedure are i n the results section. DIFFERENTIAL, AUTOMATED Routine 04/20/2020 3:08 AM Results for this EDT procedure are i n the results section. HC VENIPUNCTURE Routine 04/20/2020 3:08 AM EDT HC PHOSPHORUS, SERUM Routine 04/20/2020 3:08 AM R esults for this EDT procedure are i n the results section. HEPATIC FUNCTION PANEL Routine 04/20/2020 3:08 AM Results for this EDT procedure are i n the results section. BASIC METABOLIC PANEL Routine 04/20/2020 3:08 AM Results for this (NON-FASTING) EDT procedure are in the results section. EKG 12-LEAD Routine 04/19/2020 6:37 AM Jaundice Results f or this EDT procedure are i n the results section. URINALYSIS MICROSCOPIC Routine 04/19/2020 5:46 AM Results for this EXAM EDT procedure are i n the results section. URINALYSIS WITH REFLEX Routine 04/19/2020 5:46 AM Results for this CULTURE EDT procedure are i n the results section. URINE CULTURE Routine 04/19/2020 5:46 AM Results for this EDT procedure are i n the results section. SCAN, PERIPHERAL BLOOD Routine 04/19/2020 3:02 AM Results for this EDT procedure are i n the results section. HEMOGRAM Routine 04/19/2020 3:02 AM Results f or this EDT procedure are i n the results section. DIFFERENTIAL, AUTOMATED Routine 04/19/2020 3:02 AM Results for this EDT procedure are i n the results section. HC PARTIAL Routine 04/19/2020 3:02 AM Results f or this THROMBOPLASTIN TIME EDT procedur e are in the results section. HC PROTHROMBIN TIME Routine 04/19/2020 3:02 AM Re sults for this EDT procedure are i n the results section. HC VENIPUNCTURE Routine 04/19/2020 3:02 AM EDT HC PHOSPHORUS, SERUM Routine 04/19/2020 3:02 AM R esults for this EDT procedure are i n the results section. HC MAGNESIUM, SERUM Routine 04/19/2020 3:02 AM Re sults for this EDT procedure are i n the results section. HEPATIC FUNCTION PANEL Routine 04/19/2020 3:02 AM Results for this EDT procedure are i n the results section. BASIC METABOLIC PANEL Routine 04/19/2020 3:02 AM Results for this (NON-FASTING) EDT procedure are in the results section. LAB SCAN 04/11/2020 12:00 Results for this AM EDT procedure are i n the results section. documented in this encounter Results US Abdomen Vascular Limited Hepatology Protocol (04/22/2020 2:47 PM EDT) Anatomical Region Laterality Modality Abdomen Ultrasound Specimen (Source) Anatomical Collection Method Collection Time Re ceived Time Location / / Volume Laterality 04/22/2020 2:42 PM EDT Impressions 04/22/2020 3:21 PM EDT 1. Coarsened hepatic parenchyma, and harp rrounding ascites, with a diminutive but recanalized umbilical vein. Prominent l iver span. No definite intrahepatic focal lesion. 2. The gallbladder with internal echoge lani substance without shadowing this could represent nonshadowing stones/slu dge with nonspecific wall thickening, in the setting of ascites. No definite cur rent evidence of acute cholecystitis. 3. Splenomegaly and surrounding ascites . 4. Vascular evaluation with patent hepa tic veins. ??To/fro bidirectionality of the main portal vein is again appreciat ed, normal size main portal vein. The right and left portal veins are also bi directional in flow. The portal venous system remains patent. These findings a re consistent with recent sonographic comparison. Thank you for letting us participate in the care of this patient. For questions regarding this report, please contact t nirali number below. Electronically signed by: Nabor ariza MD, [facility] ([phone]), at 3:14 PM ?Nabor Mcbride, Staff Physician Electronically Signed Final Report ?? 03:20 pm Narrative 04/22/2020 3:21 PM EDT Abdominal ? (Signed Final 04/22/2020 03:20 pm) PATIENT INFO: ID #: ? [id number] ?: ??[birth year] (39 yrs)(F) Name: ? VIOLET COWAN ? Visit Date: 04/22/2020 02:42 pm PERFORMED BY: Performed By: ? Mayra Davis RDMS Attending: ?Reed HERNANDEZ, Alexy Alvarez Referred By: ?MILO IVY Location: ? 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 COMPARISON: Prior CT: 04/18/20, 04/16/20, US of . ------ LIVER: ------ Right Lobe Length: ?? 17.7 ?? cm Echogenicity/Echotexture: ?? Coarse par enchyma Portal Veins: ?Patent Hepatic Veins: ?? Patent Comment: ?No appreciable capsular n odularity imaging with ? curved array transduc er. Recanalized umbilical ? vein. HEPATIC-PORTAL DUPLEX: ? PSV ? Waveform ? (cm/s) Right Hepatic ? Patent Vein: Middle ?Patent Hepatic Vein: Left Hepatic ?Patent Vein: Main Portal ? 28.2 ?Patent Vein: Right Portal ?Patent, bi- Vein: ? directional Left Portal ? Patent, bi- Vein: ? directional ? Dir ection of Flow Main Portal ? Bi-direct ional Vein: Comment: ?To-Fro flow in MPV, LPV and RPV. GALLBLADDER: Cholelithiasis: ?No stones visua lized Wall Thickness: ?6. mm Focal Tenderness: ?Negative sonogra phic Link's sign Comment: ?Sludge BILIARY TRACT: Intrahepatic Ducts: ?? Normal Extrahepatic Ducts: ?? Normal Common Duct Size: ? 5.0 ? mm ------- SPLEEN: ------- Size (cm) ?L: ??13.4 Comment: ?Splenomegaly- moderate FLUID COLLECTIONS: Ascites. Procedure Note Nabor Mcbride MD - 04/22/2020Format ting of this note might be different from the original. 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 COMPARISON: Prior CT: 04/18/20, 04/16/20, US of . ------ LIVER: ------ Right Lobe Length: 17.7 cm Echogenicity/Echotexture: Coarse parenc hyma Portal Veins: Patent Hepatic Veins: Patent Comment: No appreciable capsular nodula rity imaging with curved array transducer. Recanalized um bilical vein. HEPATIC-PORTAL DUPLEX: PSV Waveform (cm/s) Right Hepatic Patent Vein: Middle Patent Hepatic Vein: Left Hepatic Patent Vein: Main Portal 28.2 Patent Vein: Right Portal Patent, bi- Vein: directional Left Portal Patent, bi- Vein: directional Direction of Flow Main Portal Bi-directional Vein: Comment: To-Fro flow in MPV, LPV and R PV. GALLBLADDER: Cholelithiasis: No stones visualized Wall Thickness: 6. mm Focal Tenderness: Negative sonographic Link's sign Comment: Sludge BILIARY TRACT: Intrahepatic Ducts: Normal Extrahepatic Ducts: Normal Common Duct Size: 5.0 mm ------- SPLEEN: ------- Size (cm) L: 13.4 Comment: Splenomegaly- moderate FLUID COLLECTIONS: Ascites. IMPRESSION 1. Coarsened hepatic parenchyma, and harp rrounding ascites, with a diminutive but recanalized umbilical vein. Prominent l iver span. No definite intrahepatic focal lesion. 2. The gallbladder with internal echoge lani substance without shadowing this could represent nonshadowing stones/slu dge with nonspecific wall thickening, in the setting of ascites. No definite cur rent evidence of acute cholecystitis. 3. Splenomegaly and surrounding ascites . 4. Vascular evaluation with patent hepa tic veins. To/fro bidirectionality of the main portal vein is again appreciat ed, normal size main portal vein. The right and left portal veins are also bi directional in flow. The portal venous system remains patent. These findings a re consistent with recent sonographic comparison. Thank you for letting us participate in the care of this patient. For questions regarding this report, please contact t nirali number below. Electronically signed by: Nabor ariza MD, [facility] ([phone]), at 3:14 PM Nabor Mcbride, Staff Physician Electronically Signed Final Report 04/22 03:20 pm Milo Ivy MD IM US GEN ORDERABLES (ABNORMAL) Differential, Automated (04/22/2020 7:00 AM EDT) Patholo gist Method Time Signature Neutrophils % 83.5 % [facility] LABOR[facility]ORY Neutr Abs (ANC) 18.15 (H) 1.70 - [facility] 6.10 [facility] x10(3)/[facility] LABORATORY Lymphocytes % 6.1 % [facility] Lymphocytes Abs 1.3 0.9 - 3.2 [facility] x10(3)/[facility] LABORATORY Monocytes % 8.1 % [facility] Monocyte Abs 1.8 (H) 0.3 - 0.9 [facility] x10(3)/[facility] LABORATORY Eosinophils % 0.8 % [facility] Eosinophils Abs 0.2 0.0 - 0.4 [facility] x10(3)/[facility] LABORATORY Basophils % 0.8 % [facility] Basophils Abs 0.2 (H) 0.0 - 0.1 [facility] x10(3)/[facility] LABORATORY Immature Gran % 0.70 % [facility] Comment: Immature granulocytes(IG's)percentage an d absolute count will include metamyelocytes, myelocytes, and promyelo cytes. Blood smears from CBCs yielding IG's will be scanned manually for concor dance. If this scan disagrees with the automated IG or if promyelocytes are not ed, a manual differential will be performed. Josey Gran Abs 0.16 (H) 0.00 - 0.04 x10(3)/[facility] LABORATORY Specimen Anatomical Collection Method Collection Time Receive d Time (Source) Location / / Volume Laterality Blood specimen 04/22/2020 7:00 AM 020 7:27 (specimen) EDT AM EDT Resulting Agency Comment Spec In Lab Hardeep Lindsey DO HEMATOLOGY ORDERABLES Performing Organization Address City/State/ZIP [place] [address] (ABNORMAL) Hemogram (04/22/2020 7:00 AM EDT) Analysis Performed At [facility] logist Time Signature WBC 21.7 (H) 4.0 - 9.5 [facility] x10(3)/[facility] LABORATORY RBC 3.45 (L) 4.00 - [place] 5.21 [facility] x10(6)/[facility] LABORATORY Hemoglobin 10.0 (L) 11.7 - [place] 15.5 gm/dL [facility] LAB[facility] Hematocrit 31.5 (L) 35.7 - [place] 45.8 % [facility] MCV 91.3 82.6 - [facility] 94.4 [facility] LABORATORY MCH 29.0 27.1 - [place] 32.0 pg [facility] MCHC 31.7 31.7 - [place] 35.0 gm/dL [facility] Platelets 477 (H) 145 - 357 [facility] x10(3)/[facility] LABORATORY RDWSD 60.3 (H) 37.0 - [facility] [place] 46.0 [facility] LABORATORY RDWCV 18.6 (H) 11.5 - [facility] 14.1 % [facility] MPV 10.8 7.6 - 12.9 [facility] LABORATORY nRBC % Auto 0.0 % [facility] nRBC Abs Auto 0.000 0.000 - [facility] [place] 0.000 [facility] x10(3)/[facility] LABORATORY Specimen Anatomical Collection Method Collection Time Receive d Time (Source) Location / / Volume Laterality Blood specimen 04/22/2020 7:00 AM 020 7:27 (specimen) EDT AM EDT Resulting Agency Comment Spec In Lab Hardeep Lindsey DO HEMATOLOGY ORDERABLES Performing Organization Address City/State/ZIP [place] [address] (ABNORMAL) Hepatic Function Panel (04/22/2020 7:00 AM EDT) [facility] gist Method Time Signature Total Protein 5.2 (L) 6.1 - 8.0 [place] gm/dL [facility] Albumin 2.3 (L) 3.2 - 5.2 [facility] gm/dL [facility] AST 120 (H) 0 - 30 [place] unit/L [facility] ALT 31 (H) 0 - 30 [place] unit/L [facility] Alk Phos 118 (H) 35 - 105 [facility] [place] unit/L [facility] Total 14.0 (H) 0.2 - 1.3 [facility] Bilirubin mg/dL [facility] Bili, Direct >10.0 (H) 0.0 - 0.3 [facility] [place] mg/dL [facility] LAB[facility] Specimen Anatomical Collection Method Collection Time Receive d Time (Source) Location / / Volume Laterality Blood specimen 04/22/2020 7:00 AM 020 7:27 (specimen) EDT AM EDT Resulting Agency Comment Spec In Lab Yolanda Mackenzie MD CHEMISTRY ORDERABLES Performing Organization Address City/State/ZIP Code Phon e Number [address] Phosphorus (04/22/2020 7:00 AM EDT) athologist Signature Phosphorus 2.5 2.5 - 4.5 [facility] mg/dL [facility] Specimen Anatomical Collection Method Collection Time Receive d Time (Source) Location / / Volume Laterality Blood specimen 04/22/2020 7:00 AM 020 7:27 (specimen) EDT AM EDT Resulting Agency Comment Spec In Lab Milo Ivy MD CHEMISTRY ORDERABLES Performing Organization Address City/State/ZIP Code Phon e Number [address] (ABNORMAL) Basic Metabolic Panel (non-fasting) (04/22/2020 7:00 AM EDT) P athologist Signature Glucose Lvl 97 65 - 199 [facility] mg/dL [facility] Comment: Diabetes: >=200 mg/dL plus symp toms BUN 5 (L) 8 - 18 mg/dL [facility] Creatinine 0.44 (L) 0.70 - 1.20 mg/dL [facility] Sodium 133 (L) 135 - 145 mmol/L [facility] Potassium 3.7 3.5 - 5.0 mmol/L [facility] Comment: Please note: ??Patients with WBC >100,00 0 may have falsely elevated Potassium levels. ??For accurate Potassium quantif ication in these patients send serum separator tube (gold top) for subsequent determinations. ??Contact the Clinical Chemistry Laboratory if there are any qu estions. Chloride 101 98 - 107 mmol/L [facility] CO2 22 22 - 31 mmol/L [facility] Anion Gap 10 5 - 15 mmol/L [facility] Calcium 8.0 (L) 8.5 - 10.5 mg/dL [facility] Estimated GFR 125 >=60 mL/min/1.73 m?? [facility] Comment: The eGFR was calculated using the CKD-EP I equation. As with all creatinine based estimates of kidney function, eGFR values calculated with the CKD-EPI equation are not accurate in patients wi th acute kidney failure, extremes of body mass or the acutely ill. [email or web address]/[facility] eGFR 145 >=60 mL/min/1.73 m?? [facility] Comment: The eGFR was calculated using the CKD-EP I equation. As with all creatinine based estimates of kidney function, eGFR values calculated with the CKD-EPI equation are not accurate in patients wi th acute kidney failure, extremes of body mass or the acutely ill. [email or web address]/[facility] Specimen Anatomical Collection Method Collection Time Receive d Time (Source) Location / / Volume Laterality Blood specimen 04/22/2020 7:00 AM 020 7:27 (specimen) EDT AM EDT Resulting Agency Comment Spec In Lab Yolanda Mackenzie MD CHEMISTRY ORDERABLES Performing Organization Address City/State/ZIP [place] [address] IR Paracentesis (04/21/2020 4:42 PM EDT) Anatomical Region Laterality Modality Abdomen X-Ray Angiography Specimen (Source) Anatomical Location Collection Method / Collectio n Time Received Time / Laterality Volume Narrative 04/21/2020 9:41 PM EDT IR PROCEDURE NOTE Procedure: Ultrasound-guided paracentesi s. Indication for Procedure: As per the not e by Jona ESPOSITO on 04/21/20, 39 y.o. female ??with a PMH significant for alcohol use,??likely alcoholic??cirrhosis, medically managed microprolactinoma??and recent admission for hemorrhagic shock secondar y to a bleeding pre-pyloric ulcer s/p EGD clipping and IR embolization who presented??in transfer from[facility]??04/19 with fever, leukocytosis and jaundice.??Trace ascites seen on CT. ??Dr. Ivy did a bedside US and f ound a small pocket (2 cm x 4cm), which he was not comfortable accessing. Procedure events and findings: After obtaining informed consent, patien t was positioned semiupright and sterile prep and drape performed. Maximu m sterile barrier technique was used throughout. U/S of the right abdomen showed small vo lume ascites. Local anesthesia was provided with 1% lidocaine. A 21 ga need le was directed into the peritoneal fluid with U/S guidance. 40 c c of clear yellow fluid was removed for requested labwork. Needle wa s removed and manual hemostasis was applied. Post-drainage ultrasound sh owed no hematoma at the site of procedure. A gauze and Tegaderm dressing was applied. Medications: 1% Lidocaine <10 cc SQ. ? Contrast: N/A Fluoro: N/A Est Blood Loss: <5cc. Complications: No immediate Impression: Ultrasound-guided paracentes is with 40ccs of clear yellow fluid obtained. Resident/Fellow: Susan Grider MD Attending: Darren Roy MD. ??I, Dr. Yun warren was present throughout this procedure. Milo Ivy MD IMG IR ORDERABLES Anaerobic Culture (04/21/2020 4:31 PM EDT) [facility] gist Method Time Signature Anaerobic No anaerobic [facility] Culture organisms [facility] LABORATORY Specimen (Source) Anatomical Collection Method Collection Time Re ceived Time Location / / Volume Laterality Peritoneal fluid 04/21/2020 4:31 04/21/20 20 5:11 specimen PM EDT PM EDT (specimen) Resulting Agency Comment Spec In Lab Milo Ivy MD MICROBIOLOGY - GENERAL ORDER MARK Performing Organization Address City/State/ZIP Code Phon e Number [place] Body Fluid Culture, Aerobic (04/21/2020 4:31 PM EDT) Component Value Ref Test Analysis Performed At Patholo gist Range Method Time Signature Body Fluid No growth [place] Culture [facility] LABORATORY Gram Stain Cytocentrifuge Gram Stain performed [place] No Neutrophils seen. [place] No microorganisms seen. [facility] LABORATORY Specimen (Source) Anatomical Collection Method Collection Time Re ceived Time Location / / Volume Laterality Peritoneal fluid 04/21/2020 4:31 04/21/20 20 5:11 specimen PM EDT PM EDT (specimen) Resulting Agency Comment Spec In Lab Milo Ivy MD MICROBIOLOGY - GENERAL ORDER MARK Performing Organization Address City/[facility]/ZIP Code Phon e Number [address] Albumin Level Body Fluid Ascites Fluid (04/21/2020 4:31 PM EDT) P athologist Signature Albumin, BF 0.3 gm/dL [facility] Comment: In the evaluation of ascites, a serum (o r plasma) ? ascites albumin gradient equal to or greater than 1.1 g/dL is usu ally associated with portal hypertension. ??A gradient less than 1.1 g/dL is usually seen in patients who do not have portal hypertension. No reference range is available for the specimen type submitted. ??The performance of this assay for the submit wayne type has not been validated and results should be interpreted accordingl y and with regard to the patient's clinical status. Albumin BF Type Ascites fluid [facility] LABORATORY Specimen (Source) Anatomical Collection Method Collection Time Re ceived Time Location / / Volume Laterality Peritoneal fluid 04/21/2020 4:31 04/21/20 20 5:00 specimen PM EDT PM EDT (specimen) Resulting Agency Comment Spec In Lab Milo Ivy MD BODY FLUIDS AND STOOLS ORDER MARK Performing Organization Address City/State/ZIP Code Phon e Number [address] Cell Count Body Fluid Ascites Fluid (04/21/2020 4:31 PM EDT) [facility] Method Time Signature Spec Type BF Ascites Fl [facility] Color BF Yellow [facility] Appearance BF Clear [facility]OR[facility]ORY WBC BF Ct 59 /[facility] LABORATORY Comment: Guideline listed below apply to [...] the clinical context for interpretation. Polymorph % 8 % [facility] LABORATORY Comment: Polymorphonuclear cell percent and absol [place] values may contain Neutrophils, Eosinophils, and Basophils. Body fluid s mear will be scanned manually for concordance. Mononuc % 92 % [facility] LAB[facility] Comment: Mononuclear cell percent and absolute va lues may contain Lymphocytes and Monocytes. Body fluid smear will be scan aminah manually for concordance. Polymorph BF ABS 5 /[facility] LABORATORY Comment: Polymorphonuclear cell percent and absol [place] values may contain Neutrophils, Eosinophils, and Basophils. Body fluid s mear will be scanned manually for concordance. Mononuc ABS 54 /[facility] LABORATORY Comment: Mononuclear cell percent and absolute va lues may contain Lymphocytes and Monocytes. Body fluid smear will be scan aminah manually for concordance. Specimen (Source) Anatomical Collection Method Collection Time Re ceived Time Location / / Volume Laterality Peritoneal fluid 04/21/2020 4:31 04/21/20 20 5:00 specimen PM EDT PM EDT (specimen) Resulting Agency Comment Spec In Lab Milo Ivy MD BODY FLUIDS AND STOOLS ORDER MARK Performing Organization Address City/State/ZIP [place] [address] (ABNORMAL) Differential, Automated (04/21/2020 4:16 AM EDT) [facility] gist Method Time Signature Neutrophils % 80.0 % [facility]OR[facility]ORY Neutr Abs (ANC) 13.64 (H) 1.70 - [facility] 6.10 [facility] x10(3)/[facility] LABORATORY Lymphocytes % 8.3 % [facility]ORATORY Lymphocytes Abs 1.4 0.9 - 3.2 [facility] x10(3)/[facility] LABORATORY Monocytes % 9.6 % [facility] LABORATORY Monocyte Abs 1.6 (H) 0.3 - 0.9 [facility] x10(3)/[facility] LABORATORY Eosinophils % 0.9 % [facility] LABOR[facility]ORY Eosinophils Abs 0.2 0.0 - 0.4 [facility] x10(3)/[facility] LABORATORY Basophils % 0.6 % [facility]ORATORY Basophils Abs 0.1 0.0 - 0.1 [facility] x10(3)/[facility] LABORATORY Immature Gran % 0.60 % [facility]ORY Comment: Immature granulocytes(IG's)percentage an d absolute count will include metamyelocytes, myelocytes, and promyelo cytes. Blood smears from CBCs yielding IG's will be scanned manually for concor dance. If this scan disagrees with the automated IG or if promyelocytes are not ed, a manual differential will be performed. Josey Gran Abs 0.11 (H) 0.00 - 0.04 x10(3)/[facility] LABORATORY Specimen Anatomical Collection Method Collection Time Receive d Time (Source) Location / / Volume Laterality Blood specimen 04/21/2020 4:16 AM 020 4:43 (specimen) EDT AM EDT Resulting Agency Comment Spec In Lab Hardeep Lindsey DO HEMATOLOGY ORDERABLES Performing Organization Address City/State/ZIP [place] [address] (ABNORMAL) Hemogram (04/21/2020 4:16 AM EDT) Analysis Performed At Patho logist Time Signature WBC 17.1 (H) 4.0 - 9.5 [facility] x10(3)/[facility] LABORATORY RBC 3.32 (L) 4.00 - [facility] 5.21 [facility] x10(6)/[facility] LABORATORY Hemoglobin 10.0 (L) 11.7 - [facility] 15.5 gm/dL [facility] LABORATORY Hematocrit 29.6 (L) 35.7 - [facility] 45.8 % [facility] LABORATORY MCV 89.2 82.6 - [place] 94.4 [facility] LABORATORY MCH 30.1 27.1 - [place] 32.0 pg [facility] LABORATORY MCHC 33.8 31.7 - [place] 35.0 gm/dL [facility] LABORATORY Platelets 479 (H) 145 - 357 [facility] x10(3)/[facility] LABORATORY RDWSD 59.2 (H) 37.0 - [place] 46.0 [facility] LABORATORY RDWCV 18.5 (H) 11.5 - [place] 14.1 % [facility] LABORATORY MPV 11.1 7.6 - 12.9 [place] [facility] LABORATORY nRBC % Auto 0.0 % [facility] LABOR[facility]ORY nRBC Abs Auto 0.000 0.000 - [place] 0.000 [facility] x10(3)/[facility] LABORATORY Specimen Anatomical Collection Method Collection Time Receive d Time (Source) Location / / Volume Laterality Blood specimen 04/21/2020 4:16 AM 020 4:43 (specimen) EDT AM EDT Resulting Agency Comment Spec In Lab Hardeep Lindsey DO HEMATOLOGY ORDERABLES Performing Organization Address City/State/ZIP Code Phon e Number [place] [id number]OS[address] LAB[address] (ABNORMAL) Hepatic Function Panel (04/21/2020 4:16 AM EDT) [facility] gist Method Time Signature Total Protein 4.9 (L) 6.1 - 8.0 [place] gm/dL [facility] LABORATORY Albumin 2.3 (L) 3.2 - 5.2 [place] gm/dL [facility] LABOR[facility]ORY AST 134 (H) 0 - 30 [place] unit/L [facility] LAB[facility] ALT 37 (H) 0 - 30 [place] unit/L [facility] LABOR[facility]ORY Alk Phos 113 (H) 35 - 105 [place] unit/L [facility] LAB[facility] Total 12.5 (H) 0.2 - 1.3 [facility] Bilirubin mg/dL [facility] LABOR[facility] Bili, Direct >10.0 (H) 0.0 - 0.3 [place] mg/dL [facility] LABORATORY Specimen Anatomical Collection Method Collection Time Receive d Time (Source) Location / / Volume Laterality Blood specimen 04/21/2020 4:16 AM 020 4:43 (specimen) EDT AM EDT Resulting Agency Comment Spec In Lab Yolanda Mackenzie MD CHEMISTRY ORDERABLES Performing Organization Address [place] [facility]/[place] [address] (ABNORMAL) APTT (04/21/2020 4:16 AM EDT) P athologist Signature PTT 42 (H) 25 - 37 sec [facility] LABORATORY Comment: The PTT is NOT appropriate for heparin m onitoring. Use the Anti-Xa level for heparin monitoring (HEP UFH) or LMWH mon itoring (HEP LMW). A PTT less than 37 seconds generally indicates adequate hem ostasis. Specimen Anatomical Collection Method Collection Time Receive d Time (Source) Location / / Volume Laterality Blood specimen 04/21/2020 4:16 AM 020 4:43 (specimen) EDT AM EDT Resulting Agency Comment Spec In Lab Milo Ivy MD HEMATOLOGY ORDERABLES Performing Organization Address City/[facility] [place] [address] (ABNORMAL) Prothrombin Time (04/21/2020 4:16 AM EDT) P athologist Signature PT 23.1 (H) 9.4 - 12.5 [facility] LABORATORY INR 2.0 [facility] LABORATORY Comment: An INR <2.0 indicates adequate [...] Location / / Volume Laterality Blood specimen 04/21/2020 4:16 AM 020 4:43 (specimen) EDT AM EDT Resulting Agency Comment Spec In Lab Milo Ivy MD HEMATOLOGY ORDERABLES Performing Organization Address City/State/ZIP Code Phon e Number [address] Phosphorus (04/21/2020 4:16 AM EDT) athologist Signature Phosphorus 2.5 2.5 - 4.5 [facility] mg/dL [facility] LABORATORY Specimen Anatomical Collection Method Collection Time Receive d Time (Source) Location / / Volume Laterality Blood specimen 04/21/2020 4:16 AM 020 4:43 (specimen) EDT AM EDT Resulting Agency Comment Spec In Lab Milo Ivy MD CHEMISTRY ORDERABLES Performing Organization Address City/[facility] Code Phon e Number [address] (ABNORMAL) Basic Metabolic Panel (non-fasting) (04/21/2020 4:16 AM EDT) athologist Signature Glucose Lvl 100 65 - 199 [facility] mg/dL [facility] LABORATORY Comment: Diabetes: >=200 mg/dL plus symp toms BUN 7 (L) 8 - 18 mg/dL [facility] LABORATORY Creatinine Not Perf 0.70 - 1.20 [facility] LABORATORY Comment: Unable to quantitate due to bilirubin in terference. Called by: [facility], Read back by: Mala uriz, Date/Time:04/21/20 05:51. Sodium 131 (L) 135 - 145 mmol/L [facility] LABOR[facility]ORY Potassium 3.5 3.5 - 5.0 mmol/L [facility] Comment: Please note: ??Patients with WBC >100,00 0 may have falsely elevated Potassium levels. ??For accurate Potassium quantif ication in these patients send serum separator tube (gold top) for subsequent determinations. ??Contact the Clinical Chemistry Laboratory if there are any qu estions. Chloride 101 98 - 107 mmol/L [facility] LABORATORY CO2 22 22 - 31 mmol/L [facility] LABORATORY Anion Gap 8 5 - 15 mmol/L [facility] LABORATORY Calcium 7.7 (L) 8.5 - 10.5 mg/dL [facility] LABOR[facility] Estimated GFR Not Calculated >=60 [facility] LAB[facility] Comment: The eGFR was calculated using the CKD-EP I equation. As with all creatinine based estimates of kidney function, eGFR values calculated with the CKD-EPI equation are not accurate in patients wi th acute kidney failure, extremes of body mass or the acutely ill. [email or web address][email or web address]/[facility] eGFR Not Calculated >=60 [facility] LABORATORY Comment: The eGFR was calculated using the CKD-EP I equation. As with all creatinine based estimates of kidney function, eGFR values calculated with the CKD-EPI equation are not accurate in patients wi th acute kidney failure, extremes of body mass or the acutely ill. [email or web address][employer]/[facility]UMnkf Specimen Anatomical Collection Method Collection Time Receive d Time (Source) Location / / Volume Laterality Blood specimen 04/21/2020 4:16 AM 020 4:43 (specimen) EDT AM EDT Resulting Agency Comment Spec In Lab Yolanda Mackenzie MD CHEMISTRY ORDERABLES Performing Organization Address City/State/[place] [address] (ABNORMAL) APTT (04/20/2020 9:05 AM EDT) P athologist Signature PTT 43 (H) 25 - 37 sec [facility] LABORATORY Comment: The PTT is NOT appropriate for heparin m onitoring. Use the Anti-Xa level for heparin monitoring (HEP UFH) or LMWH mon itoring (HEP LMW). A PTT less than 37 seconds generally indicates adequate hem ostasis. Specimen Anatomical Collection Method Collection Time Receive d Time (Source) Location / / Volume Laterality Blood specimen 04/20/2020 9:05 AM 020 9:12 (specimen) EDT AM EDT Resulting Agency Comment Spec In Lab Milo Ivy MD HEMATOLOGY ORDERABLES Performing Organization Address City/State/[place] [address] (ABNORMAL) Prothrombin Time (04/20/2020 9:05 AM EDT) P athologist Signature PT 22.9 (H) 9.4 - 12.5 [facility] LABORATORY INR 2.0 [facility] LABORATORY Comment: An INR <2.0 indicates adequate [...] Location / / Volume Laterality Blood specimen 04/20/2020 9:05 AM 020 9:12 (specimen) EDT AM EDT Resulting Agency Comment Spec In Lab Milo Ivy MD HEMATOLOGY ORDERABLES Performing Organization Address City/State/ZIP [place] [address] (ABNORMAL) Differential, Automated (04/20/2020 3:08 AM EDT) Patholo gist Method Time Signature Neutrophils % 73.4 % [facility] LABORATORY Neutr Abs (ANC) 11.02 (H) 1.70 - [facility] 6.10 [facility] x10(3)/[facility] LABORATORY Lymphocytes % 11.1 % [facility] LABORATORY Lymphocytes Abs 1.7 0.9 - 3.2 [facility] x10(3)/[facility] LABORATORY Monocytes % 12.7 % [facility] LABORATORY Monocyte Abs 1.9 (H) 0.3 - 0.9 [facility] x10(3)/[facility] LABORATORY Eosinophils % 1.0 % [facility] LABORATORY Eosinophils Abs 0.2 0.0 - 0.4 [facility] x10(3)/[facility] LABORATORY Basophils % 0.7 % [facility] LABORATORY Basophils Abs 0.1 0.0 - 0.1 [facility] x10(3)/[facility] LABORATORY Immature Gran % 1.10 % [facility] LABORATORY Comment: Immature granulocytes(IG's)percentage an d absolute count will include metamyelocytes, myelocytes, and promyelo cytes. Blood smears from CBCs yielding IG's will be scanned manually for concor dance. If this scan disagrees with the automated IG or if promyelocytes are not ed, a manual differential will be performed. Josey Gran Abs 0.16 (H) 0.00 - 0.04 x10(3)/[facility] LABORATORY Specimen Anatomical Collection Method Collection Time Receive d Time (Source) Location / / Volume Laterality Blood specimen 04/20/2020 3:08 AM 020 3:11 (specimen) EDT AM EDT Resulting Agency Comment Spec In Lab Hardeep Lindsey DO HEMATOLOGY ORDERABLES Performing Organization Address City/State/[place] [address] (ABNORMAL) Hemogram (04/20/2020 3:08 AM EDT) Analysis Performed At Patho logist Time Signature WBC 15.0 (H) 4.0 - 9.5 [facility] x10(3)/[facility] LABORATORY RBC 3.39 (L) 4.00 - [place] 5.21 [facility] x10(6)/[facility] LABORATORY Hemoglobin 10.1 (L) 11.7 - [facility] 15.5 gm/dL [facility] LABORATORY Hematocrit 30.5 (L) 35.7 - [place] 45.8 % [facility] LABORATORY MCV 90.0 82.6 - [facility] [place] 94.4 [facility] LABORATORY MCH 29.8 27.1 - [facility] 32.0 pg [facility] LABORATORY MCHC 33.1 31.7 - [facility] [place] 35.0 gm/dL [facility] LABORATORY Platelets 490 (H) 145 - 357 [facility] x10(3[facility] LABORATORY RDWSD 60.9 (H) 37.0 - [place] 46.0 [facility] LABORATORY RDWCV 19.0 (H) 11.5 - [facility] [place] 14.1 % [facility] LABORATORY MPV 10.8 7.6 - 12.9 [facility] LABORATORY nRBC % Auto 0.0 % [facility] LABORATORY nRBC Abs Auto 0.000 0.000 - [facility] 0.000 [facility] x10(3)/[facility] LABORATORY Specimen Anatomical Collection Method Collection Time Receive d Time (Source) Location / / Volume Laterality Blood specimen 04/20/2020 3:08 AM 020 3:11 (specimen) EDT AM EDT Resulting Agency Comment Spec In Lab Hardeep Lindsey DO HEMATOLOGY ORDERABLES Performing Organization Address City/State/ZIP Code Phon e Number [address] (ABNORMAL) Hepatic Function Panel (04/20/2020 3:08 AM EDT) Patholo gist Method Time Signature Total Protein 5.3 (L) 6.1 - 8.0 [facility] gm/dL [facility] LABORATORY Albumin 2.5 (L) 3.2 - 5.2 [facility]m/dL [facility] LABORATORY AST 144 (H) 0 - 30 [facility] unit/L [facility] LABORATORY ALT 41 (H) 0 - 30 [facility]/L [facility] LABORATORY Alk Phos 116 (H) 35 - 105 [facility] unit/L [facility] LABORATORY Total 12.0 (H) 0.2 - 1.3 [facility] Bilirubin mg/dL [facility] LABORATORY Bili, Direct >10.0 (H) 0.0 - 0.3 [facility] [place] mg/dL [facility] LABORATORY Specimen Anatomical Collection Method Collection Time Receive d Time (Source) Location / / Volume Laterality Blood specimen 04/20/2020 3:08 AM 020 3:11 (specimen) EDT AM EDT Resulting Agency Comment Spec In Lab Yolanda Mackenzie MD CHEMISTRY ORDERABLES Performing Organization Address City/State/ZIP Code Phon e Number [address] (ABNORMAL) Phosphorus (04/20/2020 3:08 AM EDT) P athologist Signature Phosphorus 2.4 (L) 2.5 - 4.5 [place] mg/dL [facility] LABORATORY Specimen Anatomical Collection Method Collection Time Receive d Time (Source) Location / / Volume Laterality Blood specimen 04/20/2020 3:08 AM 020 3:11 (specimen) EDT AM EDT Resulting Agency Comment Spec In Lab Milo Ivy MD CHEMISTRY ORDERABLES Performing Organization Address City/State/ZIP [place] [address] (ABNORMAL) Basic Metabolic Panel (non-fasting) (04/20/2020 3:08 AM EDT) athologist Signature Glucose Lvl 114 65 - 199 [facility] mg/dL [facility] LABORATORY Comment: Diabetes: >=200 mg/dL plus symp toms BUN 8 8 - 18 mg/dL [facility] LABORATORY Creatinine 0.52 (L) 0.70 - 1.20 mg/dL [facility] LABORATORY Sodium 133 (L) 135 - 145 mmol/L [facility] LABORATORY Potassium 3.6 3.5 - 5.0 mmol/L [facility] LABORATORY Comment: Please note: ??Patients with WBC >100,00 0 may have falsely elevated Potassium levels. ??For accurate Potassium quantif ication in these patients send serum separator tube (gold top) for subsequent determinations. ??Contact the Clinical Chemistry Laboratory if there are any qu estions. Chloride 102 98 - 107 mmol/L [facility] LABORATORY CO2 23 22 - 31 mmol/L [facility] LABORATORY Anion Gap 8 5 - 15 mmol/L [facility] LABORATORY Calcium 7.9 (L) 8.5 - 10.5 mg/dL [facility] LABORATORY Estimated GFR 119 >=60 mL/min/1.73 m?? [facility] LABORATORY Comment: The eGFR was calculated using the CKD-EP I equation. As with all creatinine based estimates of kidney function, eGFR values calculated with the CKD-EPI equation are not accurate in patients wi th acute kidney failure, extremes of body mass or the acutely ill. [email or web address][employer]/[facility] eGFR 138 >=60 mL/min/1.73 m?? [facility] LABORATORY Comment: The eGFR was calculated using the CKD-EP I equation. As with all creatinine based estimates of kidney function, eGFR values calculated with the CKD-EPI equation are not accurate in patients wi th acute kidney failure, extremes of body mass or the acutely ill. [email or web address][email or web address]/[email or web address] Specimen Anatomical Collection Method Collection Time Receive d Time (Source) Location / / Volume Laterality Blood specimen 04/20/2020 3:08 AM 020 3:11 (specimen) EDT AM EDT Resulting Agency Comment Spec In Lab Yolanda Mackenzie MD CHEMISTRY ORDERABLES Performing Organization Address City/[facility] [place] [address] EKG 12 Lead (04/19/2020 6:37 AM EDT) [facility] Mendeley Method Time Signature Ventricular rate 97 BPM MUSE SYSTEM Atrial Rate 97 BPM MUSE SYSTEM P-R Interval 156 ms MUSE SYSTEM QRS Duration 72 ms MUSE SYSTEM Q-T Interval 382 ms MUSE SYSTEM QTC Calculated 485 ms MUSE SYSTEM (Bezet) Calculated P [place] 31 degrees MUSE SYSTEM Calculated R [place] 32 degrees MUSE SYSTEM Calculated T [place] 10 degrees MUSE SYSTEM INTERPRETATION Normal sinus rhythm MUSE SYSTEM no No previous ECGs available Confirmed by MD Jayne, Issac Cardenas ([id number]) on 04/19/2020 1:18:0 9 PM Specimen Anatomical Collection Method Collection Time Receive d Time (Source) Location / / Volume Laterality 04/19/2020 6:37 AM 0 1:18 EDT PM EDT Yolanda Mackenzie MD ECG ORDERABLES Performing Organization Address City/[facility]/ZIP Code Phon e Number MUSE SYSTEM Urine culture (04/19/2020 5:46 AM EDT) [facility] Mendeley Method Time Signature Urine Culture No growth [place] (Less than [facility] 1,000 [facility] cfu/ml). LABORATORY Specimen (Source) Anatomical Collection Method Collection Time Re ceived Time Location / / Volume Laterality Urine specimen 04/19/2020 5:46 04/19/2020 obtained by clean AM EDT 11:29 AM E DT catch procedure (specimen) Resulting Agency Comment Spec In Lab Hardeep Lindsey DO MICROBIOLOGY - GENERAL ORDER MARK Performing Organization Address City/[facility]/[place] [address] (ABNORMAL) Urinalysis Microscopic Exam (04/19/2020 5:46 AM EDT) P athologist Signature RBC UA <1 0 - 4 /HPF [facility] LABORATORY Comment: Interpret results with caution, microsco pic results are from suboptimal specimen volume WBC UA 54 (H) 0 - 5 /HPF [facility] LABORATORY Bacteria UA Many (A) None /HPF [facility] LABORATORY Squam Epith UA 11 (H) <=4 /HPF [facility] LABORATORY Specimen (Source) Anatomical Collection Method Collection Time Re ceived Time Location / / Volume Laterality Urine specimen 04/19/2020 5:46 04/19/2020 5:58 obtained by clean AM EDT AM EDT catch procedure (specimen) Resulting Agency Comment Spec In Lab Hardeep Lindsey DO URINE ORDERABLES Performing Organization Address City/[facility]/[place] [address] (ABNORMAL) Urinalysis with reflex Culture (04/19/2020 5:46 AM EDT) Patholo gist Method Time Signature Glucose UA Negative Negative [facility] mg/dL [facility] LABORATORY Protein UA 100 (A) Negative [facility] mg/dL [facility] LABORATORY Bilirubin UA Large (A) Negative [facility] mg/dL [facility] LABORATORY Comment: Clinical correlation required for positi ve Urine Bilirubin results as false positive may occur with some drugs and d rug related products. If a false positive is suspected a serum total bili barr should be considered if clinically indicated. Urobilinogen UA Normal Normal mg/dL [facility] LABORATORY pH UA 6.0 5.0 - 8.0 [facility] LABORATORY Blood UA Negative Negative mg/dL [facility] LABORATORY Ketones UA Negative Negative mg/dL [facility] LABORATORY Nitrite UA Positive (A) Negative [facility] LABORATORY Leukocytes UA Small (A) Negative [facility] LABORATORY Appearance UA Clear Clear [facility] LABORATORY Spec [place] UA >=1.030 (A) 1.006 - 1.030 [facility] LABORATORY Color UA Dark Yellow Yellow [facility] LABORATORY Culture Reflexed Yes [facility] LABORATORY Specimen (Source) Anatomical Collection Method Collection Time Re ceived Time Location / / Volume Laterality Urine specimen 04/19/2020 5:46 04/19/2020 5:58 obtained by clean AM EDT AM EDT catch procedure (specimen) Resulting Agency Comment Spec In Lab Yolanda Mackenzie MD URINE ORDERABLES Performing Organization Address City/[facility]/ZIP Code Phon e Number [address] Scan, Peripheral Blood (04/19/2020 3:02 AM EDT) NanoVasc Method Time Signature Plat Estimate Increased [facility] LABORATORY RBC Morphology Abnormal [facility] LABORATORY Polychromasia Present >5/HPF [facility] LABORATORY Target Cells 1-5 /HPF [facility] LABORATORY Elizabeth Cells 1-5 /HPF [facility] LABORATORY Specimen Anatomical Collection Method Collection Time Receive d Time (Source) Location / / Volume Laterality Blood specimen 04/19/2020 3:02 AM 020 3:07 (specimen) EDT AM EDT Resulting Agency Comment Spec In Lab Hardeep Lindsey DO HEMATOLOGY ORDERABLES Performing Organization Address City/[facility]/[place] [address] (ABNORMAL) Differential, Automated (04/19/2020 3:02 AM EDT) NanoVasc Method Time Signature Neutrophils % 72.8 % [facility] LABORATORY Neutr Abs (ANC) 9.67 (H) 1.70 - [facility] 6.10 [facility] x10(3)/[facility] LABORATORY Lymphocytes % 10.9 % [facility] LABORATORY Lymphocytes Abs 1.4 0.9 - 3.2 [facility] x10(3)/[facility] LABORATORY Monocytes % 14.0 % [facility] LABORATORY Monocyte Abs 1.8 (H) 0.3 - 0.9 [facility] x10(3)/[facility] LABORATORY Eosinophils % 0.6 % [facility] LABORATORY Eosinophils Abs 0.1 0.0 - 0.4 [facility] x10(3)/[facility] LABORATORY Basophils % 0.8 % [facility] LABORATORY Basophils Abs 0.1 0.0 - 0.1 [facility] x10(3)/[facility] LABORATORY Immature Gran % 0.90 % [facility] LABORATORY Comment: Immature granulocytes(IG's)percentage an d absolute count will include metamyelocytes, myelocytes, and promyelo cytes. Blood smears from CBCs yielding IG's will be scanned manually for concor dance. If this scan disagrees with the automated IG or if promyelocytes are not ed, a manual differential will be performed. Josey Gran Abs 0.12 (H) 0.00 - 0.04 x10(3)/[facility] LABORATORY Specimen Anatomical Collection Method Collection Time Receive d Time (Source) Location / / Volume Laterality Blood specimen 04/19/2020 3:02 AM 020 3:07 (specimen) EDT AM EDT Resulting Agency Comment Spec In Lab Hardeep Lindsey DO HEMATOLOGY ORDERABLES Performing Organization Address City/State/ZIP [place] [address] (ABNORMAL) Hemogram (04/19/2020 3:02 AM EDT) Analysis Performed At Patho logist Time Signature WBC 13.3 (H) 4.0 - 9.5 [facility] x10(3)/[facility] LABORATORY RBC 3.18 (L) 4.00 - [facility] 5.21 [facility] x10(6)/[facility] LABORATORY Hemoglobin 9.7 (L) 11.7 - [facility] 15.5 gm/dL [facility] LABORATORY Hematocrit 29.3 (L) 35.7 - [facility] 45.8 % [facility] LABORATORY MCV 92.1 82.6 - [facility] 94.4 [facility] LABORATORY MCH 30.5 27.1 - [place] 32.0 pg [facility] LABORATORY MCHC 33.1 31.7 - [place] 35.0 gm/dL [facility] Platelets 405 (H) 145 - 357 [facility] x10(3)/[facility] LABORATORY RDWSD 63.7 (H) 37.0 - [facility] [place] 46.0 [facility] LABORATORY RDWCV 19.3 (H) 11.5 - [facility] [place] 14.1 % [facility] LABORATORY MPV 11.1 7.6 - 12.9 [facility] LABORATORY nRBC % Auto 0.0 % [facility] LABORATORY nRBC Abs Auto 0.000 0.000 - [place] 0.000 [facility] x10(3)/[facility] LABORATORY Specimen Anatomical Collection Method Collection Time Receive d Time (Source) Location / / Volume Laterality Blood specimen 04/19/2020 3:02 AM 020 3:07 (specimen) EDT AM EDT Resulting Agency Comment Spec In Lab Hardeep Lindsey DO HEMATOLOGY ORDERABLES Performing Organization Address City/State/ZIP [place] [address] (ABNORMAL) Prothrombin Time (04/19/2020 3:02 AM EDT) P athologist Signature PT 24.6 (H) 9.4 - 12.5 [facility] LABORATORY INR 2.1 [facility] LABORATORY Comment: An INR <2.0 indicates adequate [...] Location / / Volume Laterality Blood specimen 04/19/2020 3:02 AM 020 3:07 (specimen) EDT AM EDT Resulting Agency Comment Spec In Lab Yolanda Mackenzie MD HEMATOLOGY ORDERABLES Performing Organization Address City/[facility]/[place] [address] (ABNORMAL) APTT (04/19/2020 3:02 AM EDT) P athologist Signature PTT 39 (H) 25 - 37 sec [facility] LABORATORY Comment: The PTT is NOT appropriate for heparin m onitoring. Use the Anti-Xa level for heparin monitoring (HEP UFH) or LMWH mon itoring (HEP LMW). A PTT less than 37 seconds generally indicates adequate hem ostasis. Specimen Anatomical Collection Method Collection Time Receive d Time (Source) Location / / Volume Laterality Blood specimen 04/19/2020 3:02 AM 020 3:07 (specimen) EDT AM EDT Resulting Agency Comment Spec In Lab Yolanda Mackenzie MD HEMATOLOGY ORDERABLES Performing Organization Address [facility] [place] [address] (ABNORMAL) Hepatic Function Panel (04/19/2020 3:02 AM EDT) Analysis Performed At Patho logist Time Signature Total Protein 5.1 (L) 6.1 - 8.0 [place] gm/dL [facility] LABORATORY Albumin 2.5 (L) 3.2 - 5.2 [place] gm/dL [facility] LABORATORY AST 148 (H) 0 - 30 [place] unit/L [facility] LABORATORY ALT 41 (H) 0 - 30 [place] unit/L [facility] LABORATORY Alk Phos 100 35 - 105 [place] unit/L [facility] LABORATORY Total 11.1 (H) 0.2 - 1.3 [place] Bilirubin mg/dL [facility] Bili, Direct 9.4 (H) 0.0 - 0.3 [place] mg/dL [facility] Specimen Anatomical Collection Method Collection Time Receive d Time (Source) Location / / Volume Laterality Blood specimen 04/19/2020 3:02 AM 020 3:07 (specimen) EDT AM EDT Resulting Agency Comment Spec In Lab Yolanda Mackenzie MD CHEMISTRY ORDERABLES Performing Organization Address City/[facility]/ZIP Code Phon e Number [address] (ABNORMAL) Phosphorus (04/19/2020 3:02 AM EDT) athologist Signature Phosphorus 1.4 2.5 - 4.5 [place] (Critical) mg/dL [facility] Comment: Called by: [facility], Read back by: Lizzy Antoino, Date/Time:04/19/20 04:10. Specimen Anatomical Collection Method Collection Time Receive d Time (Source) Location / / Volume Laterality Blood specimen 04/19/2020 3:02 AM 020 3:07 (specimen) EDT AM EDT Resulting Agency Comment Spec In Lab Yolanda Mackenzie MD CHEMISTRY ORDERABLES Performing Organization Address City/[facility]/ZIP Code Phon e Number [address] Magnesium (04/19/2020 3:02 AM EDT) athologist Signature Magnesium 0.80 0.69 - 1.07 [facility] mmol/L [facility] Specimen Anatomical Collection Method Collection Time Receive d Time (Source) Location / / Volume Laterality Blood specimen 04/19/2020 3:02 AM 020 3:07 (specimen) EDT AM EDT Resulting Agency Comment Spec In Lab Yolanda Mackenzie MD CHEMISTRY ORDERABLES Performing Organization Address City/[facility]/ZIP [facility] [place] [address] (ABNORMAL) Basic Metabolic Panel (non-fasting) (04/19/2020 3:02 AM EDT) athologist Signature Glucose Lvl 96 65 - 199 [facility] mg/dL [facility] Comment: Diabetes: >=200 mg/dL plus symp toms BUN 8 8 - 18 mg/dL [facility] Creatinine 0.69 (L) 0.70 - 1.20 mg/dL [facility] Sodium 135 135 - 145 mmol/L [facility] Potassium 4.2 3.5 - 5.0 mmol/L [facility] Comment: Please note: ??Patients with WBC >100,00 0 may have falsely elevated Potassium levels. ??For accurate Potassium quantif ication in these patients send serum separator tube (gold top) for subsequent determinations. ??Contact the Clinical Chemistry Laboratory if there are any qu estions. Chloride 103 98 - 107 mmol/L [facility] CO2 21 (L) 22 - 31 mmol/L [facility] Anion Gap 11 5 - 15 mmol/L [facility] Calcium 7.8 (L) 8.5 - 10.5 mg/dL [facility] Estimated GFR 108 >=60 mL/min/1.73 m?? [facility] Comment: The eGFR was calculated using the CKD-EP I equation. As with all creatinine based estimates of kidney function, eGFR values calculated with the CKD-EPI equation are not accurate in patients wi th acute kidney failure, extremes of body mass or the acutely ill. http://[employer]/[facility] eGFR 125 >=60 mL/min/1.73 m?? [facility] Comment: The eGFR was calculated using the CKD-EP I equation. As with all creatinine based estimates of kidney function, eGFR values calculated with the CKD-EPI equation are not accurate in patients wi th acute kidney failure, extremes of body mass or the acutely ill. http://D[employer]/[facility] Specimen Anatomical Collection Method Collection Time Receive d Time (Source) Location / / Volume Laterality Blood specimen 04/19/2020 3:02 AM 020 3:07 (specimen) EDT AM EDT Resulting Agency Comment Spec In Lab Yolanda Mackenzie MD CHEMISTRY ORDERABLES Performing Organization Address City/State/ZIP [place] [address] SCAN DOC: LAB (04/11/2020 12:00 AM EDT) Narrative 04/11/2020 12:00 AM EDT This result has an attachment that is no t available. Ordered by an unspecified provider. Scanning Provider MEDIA MGR SCAN EXT ORDR/RSLT documented in this encounter Visit Diagnoses Diagnosis Jaundice Jaundice, unspecified, not of Alcoholic hepatitis with ascites Acute alcoholic hepatitis documented in this encounter Admitting Diagnoses Diagnosis Jaundice Jaundice, unspecified, not of documented in this encounter Administered Medications Inactive Administered Medications - up to 3 most recent administrations Medication Order MAR Action Action Date Dose Rate Site acetaminophen (Tylenol) tablet 650 Given 04/22/2020 9:36 AM EDT 650 mg mg 650 mg, Oral, EVERY 8 HOURS PRN, Starting on Tue04/21/20 at 1250, Until Tue04/22/20 at 2001, Pain, Maximum dose of acetaminophen is 4000 mg from all sources in 24 hours. When ordered for pain, acetaminophen should be given even when other ordered pain medications are indicated. , Routine Given 04/21/2020 9:14 PM EDT 650 mg Given 04/21/2020 1:15 PM EDT 650 mg folic acid (Folvite) tablet 1,000 mcg Given 04/22/2020 8:11 AM EDT 1,000 mcg 1,000 mcg (1 mg), Oral, DAILY, First dose on 04/19/20 at 0900, Until Discontinued, Routine Given 04/21/2020 8:09 AM EDT 1,000 mcg Given 04/20/2020 8:42 AM EDT 1,000 mcg lidocaine (LIDODERM) 5 Patch Applied 04/21/2020 5:00 PM 3 patches 14- Abdomen % patch 3 patch EDT (Right) 3 patch, Transdermal, EVERY 24 HOURS, First dose (after last modification) on Tue04/20/20 at 1800, Until Discontinued, Apply patch(es) for 12 hours, and then remove for 12 hours, Routine Patch Applied 04/20/2020 5:14 PM EDT 3 patches 14- Abdomen (Right) lidocaine (LIDODERM) patch REMOVAL Transdermal, EVERY 24 HOURS, First dose (after last modification) on 04/21/20 at 0515, Until Discontinued, Remove lidocaine 5 %(700 mg/ patch) patch multivitamin with minerals (THERA-M) tablet Given 04/02 8:11 AM EDT 1 tablet 1 tablet 1 tablet, Oral, DAILY, First dose on 04/19/20 at 0900, Until Discontinued, Routine Given 04/21/2020 8:08 AM EDT 1 tablet Given 04/20/2020 8:42 AM EDT 1 tablet pantoprazole EC (Protonix) tablet 40 mg Given 04/22/2020 8:11 AM EDT 40 mg 40 mg, Oral, 2 TIMES DAILY, First dose on 04/19/20 at 0900, Until Discontinued, DO NOT CRUSH OR OPEN, Routine Given 04/21/2020 8:43 PM EDT 40 mg Given 04/21/2020 8:09 AM EDT 40 mg phytonadione (vitamin K1) New Bag 04/21/2020 9:44 AM EDT 10 mg 51 mL/hr (AQUA-MEPHYTON) 10 mg in sodium chloride 0.9% 51 mL 10 mg, Intravenous, DAILY, 3 doses, First dose on 04/19/20 at 0900, Last dose on Tue04/21/20 at 0900, Administer over 60 Minutes, Administer by slow IV infusion over 60 minutes New Bag 04/20/2020 10:01 AM EDT 10 mg 51 mL/hr New Bag 04/19/2020 10:20 AM EDT 10 mg 51 mL/hr piperacillin-tazobactam (ZOSYN) New Bag 04/19/2020 4:00 AM 3.375 g 12.5 mL/hr 3.375 g vial attach to sodium EDT chloride 0.9% 50 mL Mini-Bag Plus 3.375 g, Intravenous, EVERY 8 HOURS, First dose on 04/19/20 at 0430, Until Discontinued, Administer over 4 Hours, Warning Vesicant/Irritant Medication Do not administer or Y-site with lactated ringers., Indication for (Active or Suspected): GI/Intra-abdominal potassium, sodium phosphates (Neutra-Phos) Given 04/22/2020 4:54 PM EDT 1.5 g 280-160-250 mg oral packet 1.5 g 1.5 g, Oral, 4 TIMES DAILY WITH MEALS & NIGHTLY, First dose on 04/19/20 at 1200, Until Discontinued, Take with full glass of water, Routine Given 04/22/2020 8:11 AM EDT 1.5 g Given 04/21/2020 8:43 PM EDT 1.5 g sodium chloride 0.9 % (flush) flush 5 mL Given 04/22/2020 8:12 AM EDT 5 mLs 5 mL, Intravenous, 2 TIMES DAILY, First dose on 04/19/20 at 0900, Until Discontinued, Routine Given 04/21/2020 9:14 PM EDT 5 mLs Given 04/21/2020 8:08 AM EDT 5 mLs sodium phosphate 15 mMol in New Bag 04/19/2020 9:12 AM EDT 15 mmol 37.5 mL/hr sodium chloride 0.9% 150 mL 15 mmol, Intravenous, EVERY 4 HOURS, 2 doses, First dose on 04/19/20 at 0515, Last dose on 04/19/20 at 0915, Administer over 4 Hours, Administer over 4-6 hours New Bag 04/19/2020 4:57 AM EDT 15 mmol 37.5 mL/hr thiamine (Vitamin B1) tablet 100 mg Given 04/22/2020 8:11 AM EDT 100 mg 100 mg, Oral, DAILY, First dose on 04/19/20 at 0900, Until Discontinued, Routine Given 04/21/2020 8:09 AM EDT 100 mg Given 04/20/2020 8:42 AM EDT 100 mg traMADoL (Ultram) tablet 50 mg Given 04/20/2020 10:55 PM EDT 50 mg 50 mg, Oral, ONCE, 1 dose, On 04/20/20 at 2345, Routine documented in this encounter Active and Recently Administered Medications Times are shown in EDT. Scheduled Medication Order 04/20/2020 04/21/2020 04/22/2020 folic acid (Folvite) tablet 1,000 mcg 0842 (Given - Pr ovider: Lizbeth Smith RN) 0809 (Given - Provider: Lizbeth Smith, ARANZA) 0811 (Giv en - Provider: Donna Antonio RN) 1,000 mcg (1 mg), Oral, DAILY, First dos e on 04/19/20 at 0900, Until Discontinued, Routine lidocaine (LIDODERM) 5 % patch 3 patch(Linked Group 1) 1714 (Patch Applied - Provider: Lizbeth Smith RN) 1700 (Patch Applied - Provider: Lizbeth Smith RN) 1800 (Due) 3 patch, Transdermal, EVERY 24 HOURS, Fi rst dose (after last modification) on 04/20/20 at 1800, Until Discontinued, Apply patch(es) for 12 hours, and then remove for 12 hours, Routine lidocaine (LIDODERM) patch REMOVAL(Linked Group 1) 0515 (Patch Removed - Provider: Mala Arcos, RN) 0515 (Patch Removed - Provider: Neelam Cruz RN) Transdermal, EVERY 24 HOURS, First dose (after last modification) on Tue04/21/20 at 0515, Until Discontinued, Remove lidocaine 5 %(700 mg/patch) patch lidocaine (XYLOCAINE) 10 mg/mL (1 %) injection 10 mg 1645 (Not Given - Provider: Giovanna Cruz RN - Reason: See comment - Comment: not given by this RN) 10 mg, Subcutaneous, ONCE, 1 dose, Tue at 1645, For use in Interventional Radiology (IR) only for procedure with direct provider supervision and verbal order., Angio/IR (Intra-Procedure), Routine lidocaine (XYLOCAINE) 10 mg/mL (1 %) injection 10 mg 2200 (Not Given - Provider: Giovanna Cruz RN - Reason: Order parameters not met) 10 mg, Subcutaneous, ONCE, 1 dose, Tue at 2200, For use in Interventional Radiology (IR) only for procedure with direct provider supervision and verbal order., Angio/IR (Intra-Procedure), Routine multivitamin with minerals (THERA-M) tablet 1 tablet 0 842 (Given - Provider: Lizbeth Smith RN) 0808 (Given - Provider: Lizbeth Smith, ARANZA) 0811 (Giv en - Provider: Donna Antonio, ARANZA) 1 tablet, Oral, DAILY, First dose on 04/19/20 at 0900, Until Discontinued, Routine pantoprazole EC (Protonix) tablet 40 mg 0842 (Given - Provider: Lizbeth Smith, ARANZA)2046 (Given - Provider: Mala Arcos, ARANZA) 0809 (Given - Provider: Lizbeth Smith, ARANZA)2042 (Given - Provider: Ashli Dunn RN) 0811 (Given - Provider: Donna Antonio, ARANZA) 40 mg, Oral, 2 TIMES DAILY, First dose o n 04/19/20 at 0900, Until Discontinued, DO NOT CRUSH OR OPEN, Routine phytonadione (vitamin K1) (AQUA-MEPHYTON ) 10 mg in sodium chloride 0.9% 51 mL (COMPLETED) 1001 (New Bag - Provider: Lizbeth garcia, ARANZA)1101 (Stopped - Provider: Lizbeth Smith, ARANZA) 0944 (New Bag - Provider: Lizbeth garcia RN)1044 (Stopped - Provider: Lizbeth Smith RN) 10 mg, Intravenous, DAILY, 3 doses, Firs t dose on 04/19/20 at 0900, Last dose on Tue04/21/20 at 0900, Administer over 60 Minutes, Administer by slow IV infusion over 60 minutes potassium, sodium phosphates (Neutra-Phos) 280-160-250 mg oral packet 1.5 g 0842 (Given - Provider: Lizbeth Smith RN)1117 (Given - Provider: Lizbeth Smith RN)1610 (Given - Provider: Lizbeth Smith, ARANZA)2047 (Given - Provider: Mala Arcos, ARANZA) 0808 (Given - Provider: Lizbeth Smith, ARANZA)1155 (Given - Provider: Lizbeth Smith, ARANZA)1649 (Given - Provider: Lizbeth Smith, ARANZA)2043 (Given - Provider: Ashli Dunn, ARANZA) 0811 (Given - Provider: Donna Antonio, ARANZA)1200 (Not Given - Provider: Donna Antonio RN - Reason: NPO - Comment: Hold per MD order, pt NPO)1654 (Given - Provider: Zahida Rice, ARANZA) 1.5 g, Oral, 4 TIMES DAILY WITH MEALS & NIGHTLY, First dose on 04/19/20 at 1200, Until Discontinued, Take with full glass of water, Routine sodium chloride 0.9 % (flush) flush 5 mL 0842 (Given - Provider: Lizbeth Smith, ARANZA)2047 (Given - Provider: Mala Arcos, ARANZA) 0808 (Given - Provider: Lizbeth Smith, ARANZA)2114 (Given - Provider: Giovanna Cruz RN) 0812 (Given - Provider: Donna Antonio RN) 5 mL, Intravenous, 2 TIMES DAILY, First dose on 04/19/20 at 0900, Until Discontinued, Routine thiamine (Vitamin B1) tablet 100 mg 0842 (Given - Prov ider: Lizbeth Smith, RN) 0809 (Given - Provider: Lizbeth Smith, RN) 0811 (Giv en - Provider: Donna Antonio RN) 100 mg, Oral, DAILY, First dose on Sat at 0900, Until Discontinued, Routine traMADoL (Ultram) tablet 50 mg (COMPLETED) 2255 (Given - Provider: Mala Arcos, ARANZA) 50 mg, Oral, ONCE, 1 dose, 04/20/20 at 2345, Routine PRN Medication Order 04/20/2020 04/21/2020 04/22/2020 acetaminophen (Tylenol) tablet 650 mg 13 15 (Given - Provider: Lizbeth Smith, ARANZA)2113 (Given - Provider: Giovanna Cruz RN) 09 (Given - Provider: Zahida Rice, ARANZA) 650 mg, Oral, EVERY 8 HOURS PRN, Startin g 04/21/20 at 1250, Until Tue04/22/20 at 2000, Pain, Maximum dose of acetaminophen is 4000 mg from all sources in 24 hours. When ordered for pain, acetaminophe n should be given even when other ordere d pain medications are indicated. , Routine lidocaine (XYLOCAINE) 10 mg/mL (1 %) injection 3 mg 3 mg (0.3 mL), Subcutaneous, ONCE PRN, 1 dose, Starting 04/19/20 at 0206, Until 04/22/20 at 2000, for discomfort with PIV insertion, Routine sodium chloride 0.9 % (flush) flush 5-20 mL 5-20 mL, Intravenous, EVERY 1 MIN PRN, S tarting 04/19/20 at 0206, Until 04/22/20 at 2000, flush, Flush pertains to all indwelling lines. Flush per protocol found in the job aid using the link provided on this medication record., Routine Linked Groups Order Group 1: lidocaine (LIDODERM) 5 % patch 3 patchJump to med 3 patch, Transdermal, EVERY 24 HOURS, Fi rst dose (after last modification) on 04/20/20 at 1800, Until Discontinued
Apply patch(es) for 12 hours, and then remove for 12 hours
Routine And lidocaine (LIDODERM) patch REMOVALJump to med Transdermal, EVERY 24 HOURS, First dose (after last modification) on 04/21/20 at 0515, Until Discontinued
Remove lidocaine 5 %(700 mg/patch) patch
documented in this encounter Care Teams An/Ssn 2 4 Operator Relationship Specialty Start Date End Date Julieta Odell APRN PCP - General Family Medicine 04/11/20 [address] [place] [address] documented as of this encounter
--- OUTSIDE RECORDS SUMMARY | 2022-04-22 08:34 | XMS_ITS | Encounter Summary ---
:1980 Author Organization [facility] [place] [address] Care Team Providers Name Role Phone OdellJulieta stacy Lizzy ESPOSITO Primary Care Provider [phone] Encounter Details Date Type Department Care Team Description 04/18/2020 Ancillary Procedure Radiology Library at [place] [address] [place] [id number] [phone] (Wo rk) Social History Tobacco Use Types Packs/Day Years Used Date Never Assessed Alcohol Habits Answer Date Recorded How often do you have a drink containing 4 or more times a w [place] 06/21/2020 alcohol? How many drinks containing alcohol [...] Associated Diagnosis Comme nts FILM LIBRARY Routine 04/18/2020 7:54 PM Results f or this STORAGE ONLY DX EDT procedure ar e in CHEST the results section. documented in this encounter Results Film Library- Storage Only DX Chest (04/18/2020 7:54 PM EDT) Specimen (Source) Anatomical Location Collection Method / Collectio n Time Received Time / Laterality Volume Narrative RAD - 04/18/2020 7:54 PM EDT This exam is auto-finalizing. It's purpo se is for storage only. Yolanda Mackenzie MD IMG FILM LIBRARY ORDERABLES Performing Organization Address City/State/ZIP Code Phon e Number [facility] [employer], [place] documented in this encounter Visit Diagnoses Not on filedocumented in this encounter Care Teams Library Services Dean Relationship Specialty Start Date End Date Julieta Odell APRN PCP - General Family Medicine 04/11/20 [address] [place] [address] documented as of this encounter
--- OUTSIDE RECORDS SUMMARY | 2022-04-22 08:34 | XMS_ITS | Encounter Summary ---
:1980 Author Organization [facility] [place] [address] Care Team Providers Name Role Phone Odell Julietayakelin Ball APRN Primary Care Provider [phone] Encounter Details Date Type Department Care Team Description 04/18/2020 Ancillary Procedure Radiology Library [place] [address] [place] [id number] [phone] (Wo rk) Social History Tobacco Use Types [...] Diagnosis Comme nts FILM LIBRARY Routine 04/18/2020 7:53 PM Results f or this STORAGE ONLY CT EDT procedure ar e in ABDOMEN AND PELVIS the resul ts section. documented in this encounter Results Film Library- Storage Only CT Abdomen & Pelvis (04/18/2020 7:53 PM EDT) Specimen (Source) Anatomical Location Collection Method / Collectio n Time Received Time / Laterality Volume Narrative [facility] - 04/18/2020 7:53 PM EDT This exam is auto-finalizing. It's purpo se is for storage only. Yolanda Mackenzie MD IMG FILM LIBRARY ORDERABLES Performing Organization Address City/State/ZIP Code Phon e Number [place], [place] documented in this encounter Visit Diagnoses Not on filedocumented in this encounter Care Teams Professor Of History Relationship Specialty Start Date End Date Julieta Odell, GRAIN FARMER PCP - General Family Medicine 04/11/20 [address] [place] [address] documented as of this encounter
--- OUTSIDE RECORDS SUMMARY | 2022-04-22 08:34 | XMS_ITS | Encounter Summary ---
:1980 Author Organization [facility] [place] [address] Care Team Providers Name Role Phone Julieta Odell APRN Primary Care Provider [phone] Encounter Details Date Type Department Care Team Description 04/18/2020 Telephone Gastroenterology at [facility] Genie Martin MD [facility] [place] [address] GASTROENTEROLOGY DEPT [phone] [place], [place] [address] (Wo rk) Social History Tobacco Use Types Packs/Day Years Used Date Never Assessed Alcohol Habits Answer Date Recorded How often do you have a drink containing 4 or more times a w [place] 06/21/2020 alcohol? How many drinks containing alcohol do you have 1 or 2 06/21/2020 on a typical day when you are drinking? How often do you have six or more drinks on one Not asked 06/21/2020 occasion? Comment: Not asked Sex Assigned at Date Recorded Not on file documented as of this encounter Miscellaneous Notes Telephone Encounter - Genie Martin - 04/18/2020 5:02 PM EDT Transfer Center Call: I received a call from Julieta Odell APRN at the patient's PCP offive. Briefly, this is a 39 yo woman with hx of UGIB with bleeding gastric ulcer 04/11, possible EtOH cirrhosis who is in her PCP office with fever to 102, tachycardia to 118, hypotensive to 98/62 with new LEedema and abdominal distension. Unfortunately the provider was not able to be reached, but based on chart review I recommend that this patient be evaluated in the ED. Genie Martin MD Gastroenterology PGY-6 04/18/2020 5:02 PM Pager #[phone] documented in this encounter Plan of Treatment Not on filedocumented as of this encounter Visit Diagnoses Not on filedocumented in this encounter Care Teams Occup Ther Relationship Specialty Start Date End Date Julieta Odell APRN PCP - General Family Medicine 04/11/20 [address] [place] [address] documented as of this encounter
--- OUTSIDE RECORDS SUMMARY | 2022-04-22 08:35 | XMS_ITS | Encounter Summary ---
:1980 Author Organization [facility] Address [address] [address] Care Team Providers Name Role Phone Unavailable Primary Care Provider Unavailable Encounter Details Date Type Department Care Team Description 04/09/2020 Ancillary Procedure [place] [address] Social History Tobacco Use Types Packs/Day Years Used Date Never Assessed Alcohol Habits Answer Date Recorded How often do you have a drink containing 4 or more times a w [place] 06/21/2020 alcohol? How many drinks containing alcohol [...] Date/Time Associated Diagnosis Comme nts FILM LIBRARY STAT 04/09/2020 12:00 AM Results for this STORAGE ONLY CT EDT procedure ar e in ABDOMEN AND PELVIS the resul ts section. documented in this encounter Results Film Library- Storage Only CT Abdomen & Pelvis (04/09/2020 12:00 AM EDT) Specimen (Source) Anatomical Location Collection Method / Collectio n Time Received Time / Laterality Volume Narrative SHRUTHI - 04/11/2020 2:26 PM EDT This exam is auto-finalizing. It's purpo se is for storage only. Oracio Long MD [place] FILM LIBRARY ORDERABLES Performing Organization Address City/State/ZIP Code Phon e Number [place], [place] documented in this encounter Visit Diagnoses Not on filedocumented in this encounter
--- OUTSIDE RECORDS SUMMARY | 2022-04-22 08:35 | XMS_ITS | Encounter Summary ---
:1980 Author Organization [facility] [place] [address] Care Team Providers Name Role Phone OdellJulieta stacy Lizzy ESPOSITO Primary Care Provider [phone] Reason for Visit Auth/Cert Specialty Diagnoses / Procedures Referred By Contact Refer red To Contact Diagnoses GI Bleed Procedures [employer] Referral ID Status Reason Start Date Expiration Date Visits Requ ested Visits Authorized [id number] 1 1 Encounter Details Date Type Department Care Team Description 04/11/2020 Hospital Encounter [facility] at [facility] Hugh Diaz MD [address] [place] [address] EMERGENCY MEDICINE [phone] [place], [place] [address] (Wo rk) Social History Tobacco Use Types Packs/Day Years Used Date Never Assessed Alcohol Habits Answer Date Recorded How often do you have a drink containing 4 or more times a w [place] 06/21/2020 alcohol? How many drinks containing alcohol [...] Take 1 tablet by 4 tablet 0 04/0104/22/2020 mg Tablet mouth 2 times daily for 2 days. documented as of this encounter Plan of Treatment Not on filedocumented as of this encounter Visit Diagnoses Not on filedocumented in this encounter Care Teams Undercutter Operator Relationship Specialty Start Date End Date Julieta Odell APRN PCP - General Family Medicine 04/11/20 [address] [place] [address] documented as of this encounter
--- OUTSIDE RECORDS SUMMARY | 2022-04-22 08:35 | XMS_ITS | Encounter Summary ---
:1980 Author Organization [facility] Address [address] [place] [address] Care Team Providers Name Role Phone OdellJulieta stacy Lizzy ESPOSITO Primary Care Provider [phone] Encounter Details Date Type Department Care Team Description 04/12/2020 Ancillary Procedure [place] [address] Social History Tobacco Use Types Packs/Day Years Used Date Never Assessed Alcohol Habits Answer Date Recorded How often do you have a drink containing 4 or more times a w enterprise 06/21/2020 alcohol? How many drinks containing alcohol [...] Name Priority Date/Time Associated Diagnosis Comme nts REQUEST FOR 2ND Routine 04/12/2020 8:17 PM Result s for this READ CT ABDOMEN AND EDT procedur e are in PELVIS the results section. documented in this encounter Results (ABNORMAL) Request For 2nd Read CT Abdomen & Pelvis (04/12/2020 8:17 PM EDT) Anatomical Region Laterality Modality Abdomen, Pelvis SO Specimen (Source) Anatomical Location Collection Method / Collectio n Time Received Time / Laterality Volume Impressions 04/13/2020 8:55 AM EDT 1. ??Hepatomegaly with large geographic areas of heterogeneously low-attenuation. Differential considerations include geog raphic areas of hepatic steatosis, hepatitis, or an underlying infiltrative neoplastic process. Hepatic ischemia/infarction could also have this appearance, but the portal vein, proper hepatic and variant left hepatic artery are patent. Given the heterogeneity of the attenuation, evaluation for discrete hepatic lesions, including hepatocellular carcinoma is limited. Fur ther evaluation with multiphasic MR liver mass protocol is recommended. 2. ??Scattered gastric varices and promi nent mesenteric vasculature raises suspicions for portal hypertension. 3. ??Nonspecific abnormal thickening, wi thout inflammatory stranding. Findings could suggest adjacent hepatitis, given the abnormal attenuation of the liver, discussed above. 4. ??Query trace fluid around the pancre atic head. Recommend correlation with any clinical or laboratory signs of acute pa ncreatitis. 5. ??Wall thickening of the gastric antr um is nonspecific, but gastritis could have this appearance. Recommend correlat ion with EGD. 6. ??Diffuse colonic submucosal fat. The se findings can be seen in chronic inflammatory condition such as ulcerativ e colitis or Crohn's disease, but it can also reflect patient body habitus there is no pericolonic inflammatory stranding or pericolonic fluid. 7. ??Unexpected finding: Asymmetric nodu le left breast tissue is partially imaged. Recommend correlation with diagn ostic breast imaging. Thank you for letting us participate in the care of this patient. For questions regarding this report, please contact e number below. ? Narrative 04/13/2020 8:55 AM EDT EXAMINATION: REQUEST FOR 2ND READ CT ABDOMEN AND PELVIS CLINICAL HISTORY: CT A/P with possible c olonic wall edema; What Modality is the exam? CT Scan; Body Part (please add com ments as necessary): abdomen and pelvis; Sending Institution [facility]; Date of exam [id number]; I believe a reinterpretation of this exam may alter care of Patient. Yes TECHNIQUE: CT abdomen and contrast. COMPARISON: None FINDINGS: Lower chest: No focal consolidation in t he visualized portions of the lower lung schuster. Asymmetric nodular left breast t issue is only partially imaged (series 3, image 1). Liver: Hepatomegaly. Large geographic ar ea of heterogeneously low-attenuation involving the entire left hepatic lobe a nd the lower right hepatic lobe. ??The portal vein is patent. The the proper he patic artery is patent. The patient has a left hepatic artery arising from the l eft gastric artery, normal variant, which is patent. Bile ducts: Nondilated. Gallbladder: Decompressed with nonspecif ic gallbladder wall thickening. No radiodense Cholelithiasis. Pancreas: Normal attenuation without harshal karoline dilatation. Query trace fluid around the pancreatic head. Spleen: Normal. Adrenals: Normal. Kidneys: Focal cortical thinning of the posterior interpolar right kidney which may represent sequela of prior infection or ischemia. No hydronephrosis. No renal calculi. Urinary Bladder: Normal. Vasculature: No abdominal aortic aneurys m. Prominence of the mesenteric vasculature is noted. There are multiple collateral vessels along the inferior margin of the right hepatic lobe. There are multiple small gastric varices. Lymph Nodes: No enlarged lymph nodes. Bowel: There is thickening of the wall o f the gastric antrum. No dilated loops of bowel. There is diffuse colonic wall thickening with a prominent low-attenuation submucosal layer which m easures near fat attenuation at multiple sites. Normal appendix. Peritoneum and mesentery: Nonspecific fr ee fluid is seen in the pelvis. Abdominal wall: Small fat-containing umb ilical hernia. Reproductive organs: Bilateral corpus nasrin teal cysts. Osseous structures: No suspicious lesion s. Resulting Agency Comment Unexpected Finding Rajendra Galo MD [facility] OUTSIDE INTERPRETATION O RDERABLES documented in this encounter Visit Diagnoses Not on filedocumented in this encounter Care Teams Special Systems Technician Relationship Specialty Start Date End Date Julieta Odell, TRANSPORT ENGINEER PCP - General Family Medicine 04/11/20 [address] [place] [address] documented as of this encounter
--- OUTSIDE RECORDS SUMMARY | 2022-04-22 08:35 | XMS_ITS | Encounter Summary ---
:1980 Author Organization [facility] [place] [address] Care Team Providers Name Role Phone Julieta Odell Lizzy ESPOSITO Primary Care Provider [phone] Reason for Referral Consultation (Routine) - Specialty Diagnoses / Procedures Referred By Contact Refer red To Contact Diagnoses GI bleed Evin Mckeon, [facility] [place] [address] Referral ID Status Reason Start Date Expiration Date Visits V isits Requested Authorized [id number] Consult, 04/17/2020 10/14/2020 1 1 Test & Treat Non PCP Reason for Visit Reason Comments Emesis BRB x 2 days Auth/Cert Specialty Diagnoses / Procedures Referred By Contact Refer red To Contact Diagnoses GI bleed GI bleed Procedures EMERGENCY IPI Referral ID Status Reason Start Date Expiration Date Visits Requ ested Visits Authorized [id number] 1 1 Encounter Details Date Type Department Care Team Description 04/11/2020 - Hospital Encounter Medical Intensive Darren Morales MD [facility] [place] [address] GI bleed (Primary 04/17/2020 Care Unit - Rajendra Albert MD [facility] [place] [address] Dx) Muriel rCuz MD [facility] [place] [address] [facility] Ashli Llamas MD [facility] [place] [address] [facility] [place] [address] [place] [id number] Social History Tobacco Use Types Packs/Day Years Used Date Never Assessed Alcohol Habits Answer Date Recorded How often do you have a drink containing 4 or more times a w napaimute 06/21/2020 alcohol? How many drinks containing alcohol [...] Sign Reading Time Taken Comments Blood Pressure 112/79 04/17/2020 12:00 PM EDT Pulse 105 04/14/2020 4:00 PM EDT Temperature 37.1 ??C (98.8 ??F) 04/17/2020 8:32 AM EDT Respiratory Rate 18 04/17/2020 8:32 AM EDT Oxygen Saturation 97% 04/17/2020 12:00 PM EDT Inhaled Oxygen Concentration - - Weight 80.8 kg (178 lb 2.1 oz) 04/14/2020 6:00 AM EDT Height 170.2 cm (5' 7) 04/13/2020 6:00 AM EDT Body Mass Index 27.9 04/13/2020 6:00 AM EDT documented in this encounter Discharge Summaries Evin Mckeon - 04/17/2020 2:06 PM EDT Discharge Summary Patient Name: Violet Cowan Patient Age: 39 y.o. Language: Ugandan Race: White Ethnicity: Not nor Admit date: 04/11/2020 Discharge date and time: 04/17/2020 Attending Physician: No att. providers found Discharge Physician: Evin Mckeon DO (Resident) ID: Violet Cowan??is a 39 y.o.??female??with a PMH significant for alcohol use, question of cirrhosis, who presented from [facility] via [facility] with hemorrhagic shock secondary to upper GIB, s/p EGD clipping and GDA IR embolization. Follow-up Recommendations for Providers: Fish Rx Changes - Pt started on Acamprosate for EtOH craving per discussion on day of discharge, please follow-up adherence and future EtOH abstinence - Pt started on po protonix BID this hospitalization given large prepyloric ulcer ultimately requiring IR embolization. - Pt discharged w/ po levofloxacin to complete 7 day course of SBP prophylaxis. Monitoring - For continued EtOH cessation as above w/ MAT - Outpatient GI hepatology follow-up, referral placed on discharge Labs - Would repeat CMP to trend continued resolution of LFTs and hyperbilirubinemia, pt sent w/ lab script on discharge and results will be forwarded to PCP for f/u. Pending Studies and Lab Data: ASMA, AMA, LKM The patient will need the following 3 tests completed on: 04/11/2020 1. Smooth Muscle Antibody 3. Mitochondrial Antibody, M2 2. Liver/Kidney Microsome Type 1 Antibody Diagnosis: Authorizing Provider: Ashli Llamas MD Discharge Diagnoses (Hospital Problems) and Secondary Diagnoses (Chronic Problems): Active Hospital Problems Diagnosis ??? GI bleed Resolved Hospital Problems No resolved problems to display. There are no active non-hospital problems to display for this patient. History of Presentation (per 04/11/2020 Admission H&P): Patient is intubated prior to admission, history gathered via chart review. ?? Initially presented to [facility] with vomiting of bright red blood. She had been in her usual state of health until ~4 days prior and had 4 episodes of coffee ground hematemesis 2 days prior and hematemesis episode on day of presentation, as well as intermittent bloody stools. She had complaintsof dizziness and nausea, but denied any CP/SOB/abd pain. Reportedly she has a history of GIB bleeding in the past without associated abdominal pain. She was initially stable at presentation with Hgb of13, however had >300cc of hematemesis and became hypotensive BP 70/50, HR 150, RR 20 and Hgb dropto 7.9. She was started on levophed, given 3pRBC, unclear amount of NS, FFP, IV PPI, octreotide ggt and transfer to [facility] via [facility], first to the ED ?? In ED, patient given propofol and ketamine for sedation and maximo given for paralysis prior to intubation for airway protection. She was given 1g CTX. Prior to intbuation, she denied any Steven, vision changes, neck pain, CP, SOB, abd pain, or swelling to ED providers. In total she received 4U pRBC, and 2U FFP. ?? She had been admitted previously on 04/09 to [facility] and a CTAP at that time showed findings concerning for acute hepatitis v cirrhosis and mural wall thickening from cecum to descending colon, and diffuse mesenteric venous engorgement concerning for portal hypertension (see full read below). Per my discussion with Mr. Cowan, Violet has been drinking heavily for the past 3 years, mostly in secret, up to 20 oz a day after the passing of her father. 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 Other medical histories include iron deficiency anemia, pi tuitary tumor now reportedly resolved. Of note, her father had alcoholic cirrhosis in his 60s. Hospital Course: Violet Cowan was admitted to the Critical Care Medicine Service on 04/11/2020. she was subsequently transferred to the hospital medicine service on 04/14/2020. The following issues were addressed and she was discharged on 04/17/2020. EGD done emergently on admission. A vigorously bleeding pre-pyloric ulcer was seen, which required 4clips to achieve hemostasis. She received 2U pRBC after admission, totaling 4 U pRBC from presentation to OSH. Over her first night in the hospital she had steadily downtrending Hgb and had increased levophed requirement up to 15, at which point IR was consulted emergently and she underwent empiric GDA embolization. Afterwards, she received additional IVF for sinus tachycardia and low pressor requirements, and was able to be weaned off pressors by 04/13. She completed 3 days of vit K repletion to minimal avail in reversing coagulopathy. 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 A RUQ doppler was obtained, which showed no flow in the proximal main portal vein, and raising concern for thrombosis. A subsequent biphasic MR abdomen was ordered and showed patent hepatic and portal veins. ON HD 4 pt had worsened bloating and RUQ abdominal discomfort, prompting repeat RUQ U/s w/ doppler that did not show veno occlusive disease. Pt continued to improve through day of discharge w/ mild abdominal pain that was toleratable and was deemed likely secondary to resolving alcoholic hepatitis. She was managed for SBP ppx while inpt w/ CTX and discharged on levofloxacin to complete 7 day total course per inpatient GI recommendation. Pt also completed 3 day course of IV PPI per GI rec's, and was discharged on po BID with plan for close outpt GI follow-up. Given active bleed w/ EGD no H. Pylori Bx was sent, stool Ag was sent and returned negative. Procedures: Operations: * No surgery found * Other Major Procedures: None Important Studies and Lab Data: DISCHARGE BASIC LABS: Recent Labs 04/17/20 0341 04/16/20 0340 04/15/20 0845 WBC 10.3* 9.3 7.0 HGB 10.5* 11.6* 10.2* HCT 31.6* 34.8* 29.5* PLATELET 280 238 150 Recent Labs 04/17/20 0341 04/15/20 0405 04/14/20 0811 04/14/20 0120 NA 137 138 -- 141 K 3.3* 3.6 3.3* 3.2* CL 104 106 -- 107 CO2 25 25 -- 26 BUN 9 11 -- 14 CREATININE 0.69* 0.64* -- 0.63* Recent Labs 04/17/20 0341 04/15/20 0405 04/14/20 0120 04/13/20 0040 BILITOT 7.6* 7.3* 7.7* 6.9* BILIDIR -- 6.8* 7.2* 5.8* AST 136* 102* 90* 70* ALT 40* 26 20 18 ALKPHOS 101 79 84 80 Recent Labs 04/17/20 0341 04/16/20 0340 04/15/20 0405 INR 1.7 1.4 1.5 PTT 35 41* 33 OTHER FISH LABS: - H. Pylori stool Ag (04/16): Negative - Quantitative Immunoglobulins (04/14) WNL - TTG IgA Ab (04/14): WNL - A1AT (04/14): WNL - HIV 4th gen screen w/ p24 Ag (04/14): Negative - Lupus Anticoagulant (04/14): WNL - DRVVT (04/14): WNL - Silica clotting time (04/14): WNL - Ceruloplasmin (04/14): WNL - OXANA (04/14): Negative - Iron (04/14): WNL - HAV Ab IgM (04/12): Negative. IgG: Positive - HCV Ab: Negative - Vit B12 (04/11): 678 - Folate (04/11): LOW 3.5 Microbiology: Microbiology Results (last 7 days) Procedure Component Value - Date/Time Blood culture [[id number]] Collected: 04/12/20 0010 Lab Status: Final result Specimen: Blood from Other Updated: 04/17/20 0701 Blood Culture No growth at 5 days. Helicobacter pylori Antigen Stool [[id number]] Collected: 04/16/20 0558 Lab Status: Final result Specimen: Stool Updated: 04/16/20 1430 H pylori Stool Ag Negative Comment: Test performed by immunoassay. H pylori Comment See Comment Comment: Antimicrobials, proton pump inhibitors and bismuth preparations are known to suppress H pylori, and ingestion of these prior to H. pylori testing may cause false negative results. COVID-19 PCR [[id number]] Collected: 04/11/20 1633 Lab Status: Final result Specimen: Nasopharyngeal Swab Updated: 04/11/20 1859 Rapid SARS-CoV-2 RNA Not Detected Comment: This result should be interpreted in combination with the clinical observations, patient history and epidemiological information. For testing of asymptomatic individuals, assay performance characteristics and clinical utility have not been evaluated. Testing for SARS-CoV-2 (Severe acute respiratory syndrome coronavirus 2, formerly known as 2019 novel coronavirus or 2019-nCoV) to aid in the diagnosis of COVID-19 is performed using the Simplexa COVID-19 Direct Assay by meevl as authorized by the FDA issued Emergency Use Authorization (EUA). This assay is intended for In-vitro Diagnostic (IVD) use with nasopharyngeal swabs collected from individuals meeting the CDC criteria for testing. The assay is performed based on the instructions for use and additional guidance provided by the FDA. Testing is performed in the Microbiology Laboratory within the Department of Pathology and Laboratory Medicine at [facility], certified under the Clinical Laboratory Improvement Amendments of 1988 (CLIA), 42 U.S.C. section 263a, to perform high complexity tests. Assay performance has been verified according to clinical laboratory regulatory requirements. Test results are provided above. A result of Not Detected indicates that the viral RNA target is not present but does not preclude SARS-CoV-2 infection. False negative results may occur if a specimen is improperly collected, transported or handled; if amplification inhibitors are present; or if inadequate numbers of viral particles are present in the specimen. A result of Detected suggests a current or recent infection and the patient is presumed to be infected. Positive and negative predictive values for this test are highly dependent on disease prevalence. A result of Invalid indicates the inability to conclusively determine the presence or absence of SARS-CoV-2 RNA in the sample which can be due to a variety of factors. Recollection is recommended in the case of an invalid result. CDC COVID-19 criteria for testing on human specimens and clinical management guidance information are available at the CDC Coronavirus Disease 2019 (COVID-19) webpage under Information for Healthcare Professionals (https://www.cdc.gov/coronavirus/2019-ncov/hcp/index.html). SARS-CoV-2 Source INSIDE SALES PROFESSIONAL Swab Microbiology Results (last 6 months) Procedure Component Value - Date/Time Helicobacter pylori Antigen Stool [[id number]] Collected: 04/16/20 0507 Lab Status: Final result Specimen: Stool Updated: 04/16/20 1430 H pylori Stool Ag Negative Comment: Test performed by immunoassay. H pylori Comment See Comment Comment: Antimicrobials, proton pump inhibitors and bismuth preparations are known to suppress H pylori, and ingestion of these prior to H. pylori testing may cause false negative results. Blood culture [[id number]] Collected: 04/12/20 0010 Lab Status: Final result Specimen: Blood from Other Updated: 04/17/20 0701 Blood Culture No growth at 5 days. COVID-19 PCR [[id number]] Collected: 04/11/20 1633 Lab Status: Final result Specimen: Nasopharyngeal Swab Updated: 04/11/20 1859 Rapid SARS-CoV-2 RNA Not Detected Comment: This result should be interpreted in combination with the clinical observations, patient history and epidemiological information. For testing of asymptomatic individuals, assay performance characteristics and clinical utility have not been evaluated. Testing for SARS-CoV-2 (Severe acute respiratory syndrome coronavirus 2, formerly known as 2019 novel coronavirus or 2019-nCoV) to aid in the diagnosis of COVID-19 is performed using the Simplexa COVID-19 Direct Assay by meevl as authorized by the FDA issued Emergency Use Authorization (EUA). This assay is intended for In-vitro Diagnostic (IVD) use with nasopharyngeal swabs collected from individuals meeting the CDC criteria for testing. The assay is performed based on the instructions for use and additional guidance provided by the FDA. Testing is performed in the Microbiology Laboratory within the Department of Pathology and Laboratory Medicine at [facility], certified under the Clinical Laboratory Improvement Amendments of 1988 (CLIA), 42 U.S.C. section 263a, to perform high complexity tests. Assay performance has been verified according to clinical laboratory regulatory requirements. Test results are provided above. A result of Not Detected indicates that the viral RNA target is not present but does not preclude SARS-CoV-2 infection. False negative results may occur if a specimen is improperly collected, transported or handled; if amplification inhibitors are present; or if inadequate numbers of viral particles are present in the specimen. A result of Detected suggests a current or recent infection and the patient is presumed to be infected. Positive and negative predictive values for this test are highly dependent on disease prevalence. A result of Invalid indicates the inability to conclusively determine the presence or absence of SARS-CoV-2 RNA in the sample which can be due to a variety of factors. Recollection is recommended in the case of an invalid result. CDC COVID-19 criteria for testing on human specimens and clinical management guidance information are available at the CDC Coronavirus Disease 2019 (COVID-19) webpage under Information for Healthcare Professionals (https://www.cdc.gov/coronavirus/2019-ncov/hcp/index.html). SARS-CoV-2 Source [employer]IDE SALES PROFESSIONAL Swab Pertinent radiology/diagnostic studies: US Abdomen vascular limited hepatology (04/13): 1. No flow detected in the proximal [...] likely to be related to the ascites. ?? MRI abdomen wwo (04/14): 1. Significantly limited examination, as detailed above. [...] related to hypervolemia, hypoproteinemia, or combination thereof. ?? LI-RADS Categories: ?? LR-TIV = Tumor in vein LR-5 = Definitely hepatocellular carcinoma (concordant with OPTN 5) LR-4 = Probably hepatocellular carcinoma LR-3 = Intermediate probability for hepatocellular carcinoma LR-2 = Probably benign LR-1 = Definitely benign ?? LR-TR Viable = Treated, probably or definitely viable LR-TR Equivocal = Treated, equivocal viable LR-TR Nonviable = Treated, probably or definitely not viable LR-TR Nonevaluable = Treated, Response not evaluable (due to image omission or degradation) ?? LR-M = Probably or definitely malignant but not HCC specific LR-NC = Not categorizable (due to image omission or degradation) US Abdomen Vascular limited hepatology (04/16): Heterogeneous echogenic coarse parenchymal echotexture without focal lesion. Hepatofugal flow patent main portal vein. Patent hepatopedal flow in the left portal vein without sonographically evident recanalized umbilical vein. To and fro flow in the patent right portal vein. Portal venous hypertension characterized by ascites, bilateral pleural effusions and mild splenomegaly. ?? Discharge Conditions/Prognosis: Upon discharge the pt is hemodynamically stable, afebrile, fully ambulatory without requiring supplemental oxygen, holding down food/drink, and pain free Vital Signs: Last value Range last 24 hrs Temperature Temp: 37.1 ??C (98.8 ??F) Temp: [36.8 ??C (98.2 ??F)-37.4 ??C (99.3 ??F)] Heart Rate Heart Rate: (!) 105 Heart Rate: -- Blood Pressure BP: 112/79 BP: (92-113)/(62-79) Respiratory Rate Resp: 18 Resp: [18-20] SpO2 SpO2: 97 % SpO2: [94 %-97 %] Discharge to: home Discharge Medications: Your Medications New Medications Dose Details acamprosate DR 333 mg Tbec [...] Folvite Take 1 tablet by mouth daily. Start taking on: April 18, 2020 1,000 mcg Quantity: 90 tablet Refills: 3 multivitamin with minerals 9 mg iron-400 mcg Tab Commonly known as: THERA-M Take 1 tablet by mouth daily. Start taking on: April 18, 2020 1 tablet Quantity: 30 tablet Refills: 0 pantoprazole EC 40 mg Tbec Commonly known as: Protonix Take 1 tablet by mouth 2 times daily. 40 mg Quantity: 90 tablet Refills: 3 thiamine Commonly known as: Vitamin B1 Take 1 tablet by mouth daily. Start taking on: April 18, 2020 100 mg Quantity: 30 tablet Refills: 0 Updated Allergies/ADRs: No Known Allergies Instructions Given to Patient at Discharge: Patient Instructions Patient Instructions on Discharge to Home Why you were hospitalized - For GI bleed and alcoholic hepatitis Call your doctor or seek medical attention if you develop the following - chest pain, shortness of breath, feeling dizzy upon standing, passing out, diarrhea, constipation lasting longer than 2 days, fevers (temperature over 100.3), chills, abdominal pain, vomiting, difficulty or discomfort when urinating, bloody or black bowel movements, or any other acute or concerning symptom. Activity level - No restrictions Diet - No restrictions for now. If cirrhosis is confirmed please follow-up diet recommendations per your GI doctors. Please take ensure 1-2 days a week given concern from inpatient nutrition consult. Driving - No restrictions Shower/Bath - No restrictions Wound Care - N/A Home Oxygen Therapy - N/A Changes in Your Medications: New Medications: Acamprosate is for alcohol cessation to minimize cravings. It is a 3 time a day medication and can be taken with meals to improve adherence. Vitamins prescribed are important given liver disease and recent use of alcohol Levofloxacin is to complete course for prophylaxis against infection of the small amount of fluid inyour belly given recent bleeding. This will end on 04/19/20. Follow-up Appointments YOU HAVE A HOSPITAL FOLLOW UP WITH YOUR PRIMARY CARE PROVIDER'S OFFICE 04/25/20 9:30 Hepatic clinic f/u 05/09/20 10:00 w/ Dr. English Your Inpatient Medical Team at [facility] Name(s) of your inpatient provider(s): Dr. Saeid Franklin For questions regarding issues relating to your hospitalization on the Hospital Medicine Service, please contact your inpatient physician through the [facility] Diesel Engine Engineer [phone]. Issues after hours and on weekends will be handled by the Hospitalist staff on-call. Your Primary Care Provider Julieta Odell, GROCERY PACKER [phone] General Instructions Substance Use Treatment and Relapse Prevention Resources Residential Treatment: [address] [address] Intensive Outpatient Program (IOP): [facility] [address] [place] [id number] Individual Therapy: Adenike Asif [facility] [place] [address] [facility] [address] [place] [address] You may also search www.Tie Society.Telemed[employer] or dial 211 for therapists in your area. Peer Support Groups Alcoholics Anonymous (AA) [place]: , www.Disconnectaa.net Narcotics Anonymous (NA) [place]: , www.gmana.org Online AA and NA Meetings AA, NA, Refuge Recovery, SMART Recovery www.Creativity Software AA Video Meetings www.aa-intergroup.org/directory_audio-video.php AA Text Chat Meetings www.aa.intergroup.org/directory.php NA Video Meetings www.virtual-na.org/meetings NA Text Chat Meetings Www.ProsperWorksaloneclub.org SMART Recovery Meetings via Zoom 5:00-6:00pm, free and open to all To join Zoom meetin. Visit www.Genisphere Inc.[employer] 2. Click on calendar on top of toolbar 3. Find the correct meeting date and time 4. Click the zoom link and enter password provided 211: Your Connection to Recovery HUBS Dial 2-1-1 from anywhere in [place] 21/02 to be connected with a mental health professional who can refer you to your local HUB for evaluation and referral to appropriate substance use treatment. Safe Station Present to any one of the fire stations in [place] or [facility], now designated as ???Safe Stations?? , a place where you can walk in 21/02, and get connected with substance use treatment services. [facility] Safe Stations Central Fire Station: [address] --- Station 2: [address] [facility]. Station 3: [address] [facility]. --- Station 4: [address] [facility] Station 5: [address] --- Station 6: [address] Station 7: [address]--- Station 8: [address] [facility] Station 9: [address]--- Station 10: [facility] Safe Stations Station 1: [address] --- Station 2: [address] --- Station 3: [address] Station 4: [address] --- Station 5: [address] -- Station 6: [address] Station 7: [address] Additional Resources www.health[place].gov/alcohol-drugs www.ID Analytics.org/ (Search for Substance Use) www.PowerStores/ www.rethinkingdrinking.niaaa.nih.gov/ Online Stress Reduction Resources www.Globant/videos-features/videos/odaidxqff-hsmlgjgfc-8-7-8-breath/ www.Islet Sciences.TASS/2013/xgnibggmm-tbobajlyn-iqqczby-moment/ www.CleanFish/ www.mindful.org/ www.freemindfulness.org/ Future Appointments and Orders Future Appointments and Orders Future Appointments Provider Department Dept Phone 05/09/2020 10:00 AM Anabel English MD Gastroenterology at [facility] Arrive at: Corrections Counselor Area [phone] Future Orders Complete By Expires Comprehensive metabolic panel (non-fasting) [LAB17 Custom] 04/24/2020 (Approximate) 10/24/2020 Process Instructions: Scheduling Instructions: Comments: Questions: Referral to Gastroenterology [REF25 Custom] As directed Process Instructions: If no progress note charted, please enter Clinical details in comments. Scheduling Instructions: Questions: My question or request is: continued management of cirrhosis vs alcoholic hepatitis per inpt GI recomendation. See recent notes in chart Provider Contact Information: Julieta Odell APRN [address] / [place] [address] Discharge References/Attachments: Discharge References/Attachments None documented in this encounter Discharge Instructions Discharge InstructionsModesto Joseph, GROCERY PACKER - 04/15/2020 11:58 AM EDT Substance Use Treatment and Relapse Prevention Resources Residential Treatment: [facility] [address] [place] [address] [address] [address] [address] Intensive Outpatient Program (IOP): [facility] [address] [place] [id number] Individual Therapy: Adenike Asif [facility] [place] [address] [phone] [facility] [address] [place] [address] You may also search www.Tie Society.[employer]med[employer] LLC or dial 211 for therapists in your area. Peer Support Groups Alcoholics Anonymous (AA) [place]: , www.Disconnectaa.net Narcotics Anonymous (NA) [place]: , www.Imnishana.org Online AA and NA Meetings AA, NA, Refuge Recovery, SMART Recovery www.Creativity Software AA Video Meetings www.aa-intergroup.org/directory_audio-video.php AA Text Chat Meetings www.aa.intergroup.org/directory.php NA Video Meetings www.virtual-na.org/meetings NA Text Chat Meetings Www.ProsperWorksaloneclub.org SMART Recovery Meetings via Zoom 5:00-6:00pm, free and open to all To join Zoom meetin. Visit www.Genisphere Inc.[employer]med[employer] 2. Click on calendar on top of toolbar 3. Find the correct meeting date and time 4. Click the zoom link and enter password provided 211: Your Connection to Recovery HUBS Dial 2-1-1 from anywhere in [place] 21/02 to be connected with a mental health professional who can refer you to your local HUB for evaluation and referral to appropriate substance use treatment. Safe Station Present to any one of the fire stations in [place] or [facility], now designated as ???Safe Stations?? , a place where you can walk in 21/02, and get connected with substance use treatment services. [facility] Safe Stations Central Fire Station: [address] --- Station 2: [address] Station 3: [address] --- Station 4: [address] Station 5: [address] --- Station 6: [address] Station 7: [address]--- Station 8: [address] [facility] [address] Station 9: [address]--- Station 10: [address] [facility] Safe Stations Station 1: [address] --- Station 2: [address] --- Station 3: [address] Station 4: [address] --- Station 5: [address] -- Station 6: [address] Station 7: [address] Additional Resources www.health[place]mont.gov/alcohol-drugs www.ID Analytics.TASS/ (Search for Substance Use) www.PowerStores/ www.rethinkingdrinking.niaaa.nih.gov/ Online Stress Reduction Resources www.Globant/videos-features/videos/brcgzolxc-zrfjhjirp-3-7-8-breath/ www.Islet Sciences.org/2013/trnvuxkeh-luhqbpqyn-dwlwcct-moment/ www.headsVirtustreamce.Telemedicine Solutions LLC/ www.mindful.org/ www.freemindfulness.org/ Patient InstructionsEvin Mckeon - 04/17/2020 12:57 PM EDT Patient Instructions on Discharge to Home Why you were hospitalized - For GI bleed and alcoholic hepatitis Call your doctor or seek medical attention if you develop the following - chest pain, shortness of breath, feeling dizzy upon standing, passing out, diarrhea, constipation lasting longer than 2 days, fevers (temperature over 100.3), chills, abdominal pain, vomiting, difficulty or discomfort when urinating, bloody or black bowel movements, or any other acute or concerning symptom. Activity level - No restrictions Diet - No restrictions for now. If cirrhosis is confirmed please follow-up diet recommendations per your GI doctors. Please take ensure 1-2 days a week given concern from inpatient nutrition consult. Driving - No restrictions Shower/Bath - No restrictions Wound Care - N/A Home Oxygen Therapy - N/A Changes in Your Medications: New Medications: Acamprosate is for alcohol cessation to minimize cravings. It is a 3 time a day medication and can be taken with meals to improve adherence. Vitamins prescribed are important given liver disease and recent use of alcohol Levofloxacin is to complete course for prophylaxis against infection of the small amount of fluid inyour belly given recent bleeding. This will end on 04/19/20. Follow-up Appointments YOU HAVE A HOSPITAL FOLLOW UP WITH YOUR PRIMARY CARE PROVIDER'S OFFICE 04/25/20 9:30 Hepatic clinic f/u 05/09/20 10:00 w/ Dr. English Your Inpatient Medical Team at [facility] Name(s) of your inpatient provider(s): Dr. Saeid Franklin For questions regarding issues relating to your hospitalization on the Hospital Medicine Service, please contact your inpatient physician through the [facility] Diesel Engine Engineer [phone]. Issues after hours and on weekends will be handled by the Hospitalist staff on-call. Your Primary Care Provider Julieta Odell, GROCERY PACKER [phone] documented in this encounter Medications at Time [...] documented as of this encounter Progress Notes Eliza Jaramillo RN - 04/17/2020 2:29 PM EDT 1420 Discharge instructions given to pt pt verbalizes understanding. IV's removed. Pt discharged viawheelchair home with . Karina Breaux MD - 04/17/2020 2:20 PM EDT Hospital Medicine - Attending Day of Discharge Documentation Discharge diagnosis Active Hospital Problems Diagnosis ??? GI bleed Resolved Hospital Problems No resolved problems to display. Secondary Issues There are no active non-hospital problems to display for this patient. I have personally seen and examined the patient and they are ready for discharge. I spent <30 minutes (Day of Discharge Code 93505) involved in the final examination of the patient, discussion of the hospital stay, instructions for continuing care to all relevant caregivers, and preparation of discharge records, prescriptions and referral forms . Plans ? Discharge to home ? Follow-up scheduled with PCP, hepatology ? Please see the Discharge Summary for complete details of any medication changes and additional plans. Eliza Jaramillo RN - 04/16/2020 6:27 PM EDT OUTCOME EVALUATION NOTE: OUTCOME SUMMARY: Pt slept in this morning until 1100. Abd ultrasound done pt c/o ruq pain. No c/o ofnausea PLAN MOVING FORWARD: if pt continues to be stable overnight discharge to home tomorrow Mayra Granados RN - 04/16/2020 12:09 PM EDT Continues in MICU DX:hemorrhagic shock secondary to acute UGIB HX etoh 04/11/20 rapid covid (-) Patient plan of care discussed in multidisciplinary rounds and assessment for continuing care and discharge LOS Hospital: 4 Ongoing Issues: Prior to admission pt: pt states she was independent and driving. 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 lives with and almost 4y/o son in house with 3 bruna and 14 to loft bedrooms DME: N/A Patient goal for d/c:Pt would like to return home and help with drinking Discharge planning to date: monitor pt progress No needs at this time Make referral as needed Current Referral in place: none Insurance: BLUE CROSS [employer]UE [employer] [place] Secondary Insurance: Decision Maker: Nawaf no AD in chart Barriers: none at this time Pt has spoken to Psychiatry and formulated a plan to assist with drinking cessation CM will continue to follow and assist with discharge planning and corrdination of care with inptut from patient,family and team as indicated Mayra Granados RN [id number] Isha Franklin MD - 04/16/2020 11:27 AM EDT Images from the original note were not included. Inpatient Medicine Progress Note ID: Violet Cowan is a 39 y.o. female w/ PMH of AUD and GI episode in the past on HD# 3 for upper GI bleed from prepyloric ulcer s/p EGD clipping and GDA IR embolization w/ RUQ US suspicious for hepatic vein thrombus. 24 hr events: - episode of abd pain overnight. Received 25mg tramadol w/ improvement. Continues to have RUQ pain this morning. No blood in stool. Pt also feels more bloated today Meds: Continuous Infusions: ??? sodium chloride 0.9% Scheduled Meds: ??? ciprofloxacin 500 mg Oral BID ??? pantoprazole EC 40 mg Oral BID ??? lidocaine 1 patch Transdermal Nightly And ??? lidocaine 1 patch Transdermal Daily ??? folic acid 1 mg Oral Daily ??? thiamine 100 mg Oral Daily ??? multivitamin with minerals 1 tablet Oral Daily ??? senna-docusate 2 tablet Oral BID PRN Meds:.ondansetron, sodium chloride 0.9% Vital Signs: Last value Range last 24 hrs Temperature Temp: 37.2 ??C (99 ??F) Temp: [37 ??C (98.6 ??F)-37.3 ??C (99.1 ??F)] Heart Rate Heart Rate: (!) 105 Heart Rate: -- Blood Pressure BP: 101/69 BP: (86-107)/(60-69) Respiratory Rate Resp: 23 Resp: -- SpO2 SpO2: 98 % SpO2: [93 %-99 %] Patient Vitals for the past 168 hrs: Weight 04/14/20 0600 80.8 kg (178 lb 2.1 oz) 04/13/20 0600 78.9 kg (173 lb 15.1 oz) 04/11/20 1713 75 kg (165 lb 5.5 oz) 04/11/20 1535 68 kg (150 lb) I/O: Intake/Output Summary (Last 24 hours) at 04/16/2020 1127 Last data filed at 04/16/2020 0700 Gross per 24 hour Intake 490 ml Output 100 ml Net 390 ml Physical Exam: Gen: in bed in NAD; alert, oriented, interactive HEENT: MMM, grossly normal ROM CV: RRR, normal S1/S2, no m/r/g Resp: CTAB, no distress Abd: +BS, soft, NT, ND but more bloated today, no masses Ext: WWP, no cyanosis, no clubbing, 2+ DP pulses Neuro: no focal deficits noted, CN II-XII grossly intact, moves all extremities spontaneously Skin: jaundiced, no rash Labs Recent Labs 04/16/2033904/15/20 0845 04/14/202014 WBC 9.3 7.0 8.2 HGB 11.6* 10.2* 10.6* HCT 34.8* 29.5* 31.0* PLATELET 238 150 138* Recent Labs 04/15/2040404/14/20 0811 04/14/20 0120 04/13/20 0040 NA 138 -- 141 142 K 3.6 3.3* 3.2* 3.5 CL 106 -- 107 108* CO2 25 -- 26 25 BUN 11 -- 14 18 CREATININE 0.64* -- 0.63* 0.59* Recent Labs 04/15/2040404/14/20 0120 04/13/20 0040 AST 102* 90* 70* ALT 26 20 18 ALKPHOS 79 84 80 BILITOT 7.3* 7.7* 6.9* BILIDIR 6.8* 7.2* 5.8* Recent Labs 04/15/2040414/20 0120 04/13/20 0040 CALCIUM 7.7* 7.4* 7.3* Recent Labs 04/16/20 0340 04/15/20 0405 04/13/20 0040 INR 1.4 1.5 1.3 PT 16.1* 16.9* 14.7* PTT 41* 33 37 No results for input(s): CK, TROPONINT in the last 168 hours. Recent Labs 04/12/20 0416 04/11/20 1956 04/11/20 1719 POCGLU 135 151 169 No results for input(s): PROBNP in the last 168 hours. Micro: Imaging/Studies: ASSESSMENT/PLAN: Violet Cowan is a 39 y.o. female w/ PMH of AUD on HD# 3 for upper GI bleeding from prepyloric ulcer s/p clipping x4 and IR embolization of GDA. Hemodynamically stable since IR embolization. Hgb 9.7 today, decr from 10.7 yesterday, stable 10.2 today. Asymptomatic. Pt received 3U PRBC at OSH and ad ditional 2U PRBC here. ?? Elevated liver enzymes thought to be due to alcoholic cirrhosis. Pt reportedly drinks approx 20oz EtOH daily since the of her father 3 years ago. HAV, HBV, and HCV studies unremarkable. Previous CT abd/pelvis showed hepatomegaly w/ large geographic areas of heterogeneously low-attenuation. RUQ US showed no flow in the proximal main portal vein, suspicious for thrombosis. Multiphasic MRI pending. On further discussion w/ pt, hx of miscarriage x2. Will f/u lupus anticoagulant panel, dRVVT, silica clotting time, liver studies per GI recs but thus far unremarkable. New abd pain and bloating today. SBP unlikely given ppx. May be related to pt's portal vein thrombus. Plan for RUQ US and daily CMP per GI recs. No evidence of re-bleeding. ?? No withdrawal symptoms at this time. No hx of complicated w/d, DT's, seizure. Pt has been in the hospital for 72 hours. Will d/c CIWA. ?? #Prepyloric Bleeding Ulcer #Anemia - GI and IR consulted - S/p clips x4, GDA embolization - s/p 5 total units PRBC - ceftriaxone for SBP ppx (EOT 04/19) - PO PPI bid - f/u stool H. pylori Ag w/ GI - daily CBC - avoid NSAIDs ?? #Alcohol Use Disorder #Elevated LFT's #Poor portal vein perfusion - thiamine, folate supplement - BIT consult - Abd US w/ doppler - lupus anticoagulant labs - Chronic liver disease eval: - HIV, ceruloplasmin, OXANA, ASMA, AMA, Ig levels, LKM, TTG, A1AT, iron studies ?? #L Breast Nodule - f/u outpt? #Routine PPX -DVT: deferred - GI: PPI for GI bleed Summary of Glc management: Diet: full liquid, advance as tolerated Consults: GI, IR, BIT Lines/Access: arterial line, PIV x2 CODE Status: full code ?? Isha Franklin MD, PGY-1 Medicine Blue Team (pgr. [id number]) Associated attestation - Karina Breaux MD - 04/16/2020 10:23 PM EDT Attending Attestation Please see Dr. Franklin's note for details of the patient history of presentation and data. I have discussed, reviewed and agree with the documented History, Physical findings, Assessment and Plan of care. Violet is a 39 y/o with alcohol use disorder, with markedly elevated bilis likely cirrhosis (INR 1.3, albumin 2.2) vs alcoholic hepatitis admitted with UGIB/hemorrhagic shock with prepyloric ulcer s/p clipping and GDA embolization with stable Hgb. Duplex today showed patent vasculature, small amount of ascites. No asterixis. Continue to encourage alcohol abstinence. On oral PPI and oral abx. Anticipate dc tomorrow if remains stable with GI f/u. I have examined the patient myself and personally reviewed all studies. In addition, I certify that I am a D-H credentialed attending provider with admitting privileges and that the patient meets or has met medical necessity to require an inpatient IPI level of care meeting a minimum of two midnights or is on the [facility] inpatient only procedure list (status C) due to: UGIB Anabel English MD - 04/16/2020 7:31 AM EDT Images from the original note were not included. DIVISION OF GASTROENTEROLOGY & HEPATOLOGY CONSULT PROGRESS NOTE REQUESTING PROVIDER: Karina Breaux MD NAME: Violet Cowan : 1980 INTERVAL: - Tm 99.1, remains off pressors. BP 86/60--> 107/69 - Mentating well, no evidence of encephalopathy - Noting more abdominal distension today - 3 BM overnight - Hb stable - New RUQ pain and bloating overnight, lasted 4 hours. No N/V. Did feel a little better with BM. Endorsing slightly improved po intake. 14-system ROS reviewed and negative except as above Past medical history: cirrhosis Past Surgical History: Procedure Laterality Date ??? IR ARTERIAL INTERVENTION 04/12/2020 IR Arterial Intervention 04/12/2020 Milo Steve, DO [facility] INTERVENTIONL RAD Social History: active EtOH at home, no tobacco or illicit drugs Family History: no known liver disease in mother/father or other family members MEDICATIONS Home Meds: No medications prior to admission. Current Meds: Scheduled: ??? pantoprazole EC 40 mg Oral BID ??? lidocaine 1 patch Transdermal Nightly And ??? lidocaine 1 patch Transdermal Daily ??? folic acid 1 mg Oral Daily ??? thiamine 100 mg Oral Daily ??? cefTRIAXone 1 g Intravenous Q24H ??? multivitamin with minerals 1 tablet Oral Daily ??? senna-docusate 2 tablet Oral BID Drips: ??? sodium chloride 0.9% No Known Allergies OBJECTIVE Vitals: T Temp: [37 ??C (98.6 ??F)-37.3 ??C (99.1 ??F)] HR Heart Rate: -- BP BP: (86-108)/(60-73) RR Resp: -- SpO2 SpO2: [93 %-99 %] 04/15 0701 - 04/16 0700 In: 740 [P.O.:740] Out: 100 [Urine:100] Wt Last 80.8 kg (178 lb 2.1 oz) Admit 68.04 kg Physical Exam: GEN: Awake, alert, oriented HEENT: scleral icterus RESP: CTAB CARDIAC: sinus tachy, normal S1/S2, no appreciable murmurs ABDOMEN: Soft, distended, mild tenderness to RUQ, neg Link's, normoactive bowel sounds EXTREM: Warm, 1+ edema NEURO: Awake, alert, moving all extremities spontaneously, no asterixis SKIN: Faint jaundice Labs: CBC: Recent Labs 04/16/20 0340 04/15/20 0845 04/14/20201404/14/20 0811 04/13/20200904/13/20 0555 04/13/20 0040 04/12/20 1805 WBC 9.3 7.0 8.2 7.9 11.5* 10.7* 11.4* 10.7* HGB 11.6* 10.2* 10.6* 9.7* 10.7* 10.6* 10.8* 10.8* HCT 34.8* 29.5* 31.0* 28.4* 32.0* 31.3* 32.4* 31.8* MCV 91.8 90.2 89.9 90.2 91.4 90.7 90.5 90.3 RDWCV 17.9* 17.2* 17.4* 17.7* 17.8* 18.0* 18.0* 18.1* COAG: Recent Labs 04/16/20 0340 04/15/20 0405 04/13/20 0040 04/12/20 0415 04/12/20 0010 04/11/20 1945 04/11/20 1545 PTT 41* 33 37 38* 33 36 30 INR 1.4 1.5 1.3 1.6 1.6 1.6 1.5 CHEM: Recent Labs 04/15/20 0405 04/14/20 0811 04/14/20 0120 04/13/20 0040 04/12/20 0245 04/11/20 1545 GLUCOSE 94 -- 95 114 158 210* NA 138 -- 141 142 141 140 K 3.6 3.3* 3.2* 3.5 3.7 4.1 CL 106 -- 107 108* 108* 102 CO2 25 -- 26 25 22 20* BUN 11 -- 14 18 22* 24* CREATININE 0.64* -- 0.63* 0.59* 0.83 0.86 ALBUMIN 2.3* -- 2.2* 2.4* 2.5* 3.0* CALCIUM 7.7* -- 7.4* 7.3* 6.9* 7.3* HEPATIC: Recent Labs 04/15/20 0405 04/14/20 0120 04/13/20 0040 04/12/20 0245 04/11/20 1740 04/11/20 1545 ALKPHOS 79 84 80 87 -- 111* ALT 26 20 18 16 -- 22 AST 102* 90* 70* 69* -- 90* BILITOT 7.3* 7.7* 6.9* 4.6* -- 4.9* BILIDIR 6.8* 7.2* 5.8* 3.7* -- 3.5* LIPASE -- -- -- -- 15 20 IMAGING: Reports and images personally reviewed in [facility] MRI Abdomen wwo Contrast (Generic) Final Result [...] criteria and documentation are available online at https://www.acr.org/Clinical-Resources/Xwmhcemmo-kwr-Cpct-Systems/LI-RADS. This report utilizes LI-RADS version 2018. Thank you for letting us participate in the care of this patient. For questions regarding this report, please contact the number below. Electronically signed by: Milo Steve DO, [facility] ([phone]), at 04/15/2020 7:46 AM XR Chest One View Final Result FINDINGS/IMPRESSION: RIGHT central catheter tip projects over the mid SVC. Pulmonary edema. Possible small pleural effusions and/or bibasilar atelectasis. No pneumothorax seen. Prominent cardiomediastinal silhouette, nonspecific given technique/positioning. Thank you for letting us participate in the care of this patient. For questions regarding this report, please contact the number below. Electronically signed by: Corby Godoy MD, [facility] ([phone]), at 04/13/2020 11:58 PM US Abdomen Vascular Limited Hepatology Protocol Final Result [...] 04/13/2020 at 12:30 pm. Lulú Sahu, [employer] Clerk Electronically Signed Final Report 04/13/2020 12:40 pm [...] contact the number below. Electronically signed by: Lulú Sahu MD, [facility] ([phone]), at 04/13/2020 8:55 AM IR Arterial Intervention Final Result XR Chest One View Final Result Endotracheal tube tip at the clavicle heads. Enteric tube in the stomach. Thank you for letting us participate in the care of this patient. For questions regarding this report, please contact the number below. Electronically signed by: Kyle Goode MD, [facility] ([phone]), at 04/11/2020 4:42 PM Film Library- Storage Only CT Abdomen & Pelvis Final Result ASSESSMENT & PLAN: 39/F hx possible cirrhosis (thought to be 2/2 EtOH, still actively drinking) admitted 04/11 w/ hematemesis in hemorrhagic shock. Initial concern for portal hypertensive bleed but found to have spurting prepyloric ulcer s/p clip x4 then taken for empiric GDA embolization by IR with resolution of bleeding. Has developed worsening conjugated hyperbilirubinemia with normal AP, mild elevation in AST but normal ALT. Mild Alc Hep possible v decompensated cirrhosis. Now with new RUQ pain not endorsed before;Abdominal US showed mildly thickened GB wall (6mm), and slow flows through PV c/f acute partial thrombosis given vessels on CT and recent angio. Pain could be 2/2 thrombosis but given acuity and severity would recommend repeat US to ensure no new biliary pathology has arisen. In regards to her PV thrombus, not a great candidate for AC given admission for hemorrhagic shock. MRI liver without evidence of thrombosis. Recommendations: - Repeat Abdominal US with Doppler -Daily CBC, CMP - F/U stool H pylori Ag, treat if positive - F/U ASMA, AMA, LKM (OXANA tTG neg) - No NSAIDs - Complete 72h IV PPI BID then transition to oral PPI BID given high-risk lesion on endoscopy - Complete 7d abx for SBP ppx, can transition to oral abx to complete course - Thiamine, folate - F/U with Hepatology clinic requested This case was discussed with Dr. English. Michelle Gerber M.D. Fellow in Gastroenterology and Hepatology Pager #[phone] 04/16/2020 Attending Addendum: I interviewed and examined the patient with Dr. Gerber on rounds. I confirm the history and fish physical findings outlined in this note. The assessment and plan were formulated in discussion with me at the time of this encounter, and I agree with them as documented. Anabel English MD Gastroenterology and hepatology Pager: [phone] Melissa Russell RN - 04/16/2020 6:23 AM EDT OUTCOME EVALUATION NOTE: OUTCOME SUMMARY: Pt slept poorly through the night. C/o RUQ pain unrelieved by lidocaine patch. Around 0300, pt having 5/10 low back pain, tearful, unable to get comfortable. Unrelieved by Tylenol. Provider notified and received 1x order for Tramadol. Pt also c/o worsening abd distension, bloating and discomfort. H/H remains stable. Pt ambulating in room with steady gait. Medicated twice with Zofran for nausea, with good effect. PLAN MOVING FORWARD: Move out of ICU when bed available D/c home when ready INDIVIDUALIZED FALL PREVENTION INTERVENTIONS: Patient-specific fall risk factors per assessment: [current deficits]: Monitoring devices Assistance [level of assistance required for transfers and ambulation]: Independent in room Supervision [direct monitoring required during toileting and ADLs]: Pt rings appropriately Surveillance [continuous indirect monitoring]: SpO2 alarms on and audible. Call light in reach, roomnear unit station, frequent rounding. Patient-specific fall prevention interventions for sensory deficits provided, if applicable: [X] N/A CPG GOAL OUTCOME EVALUATION: Katja Hdz RN - 04/15/2020 5:10 PM EDT OUTCOME EVALUATION NOTE: OUTCOME SUMMARY: VSS throughout shift. Patient alert and oriented, lung sounds clear. PLAN MOVING FORWARD: Discharge. INDIVIDUALIZED FALL PREVENTION INTERVENTIONS: Patient-specific fall risk factors per assessment: [current deficits]: Weakness Assistance [level of assistance required for transfers and ambulation]: Standby Supervision [direct monitoring required during toileting and ADLs]: Standby Surveillance [continuous indirect monitoring]: Purposeful rounding. Room close to nursing station. Blanquita Rice - 04/15/2020 1:11 PM EDT Nutrition Services Note - Low Nutrition Acuity Violet Cowan is a 39 y.o. female Reason for intervention: ICU admit Nutrition Plan: Continue current diet. Folic Acid, MVI w/ minerals, Vitamin K, Vitamin B1 noted. Ensure 2x/day with Ice cream. Monitor weight. Encourage good oral intake. Support and encouragement provided. Pt reported a good appetite today noting that she had her first solid meal today around 10am. Pt denied nausea or vomiting associated with diet advancement. Pt reported a poor appetite for 4 months PTAthat resulted in a 15lb weight loss. Based on pt's current documented weight, 15lbs would be 7.7% weight loss over 4 months. [employer] offered nutritional supplements to optimize nutrition, pt agreeable to Ensure w/ ice cream 2x/day. Nutrition will continue to follow and assess PO intake and monitor weight loss. Active Orders Diet Regular diet Frequency: Effective Now Number of Occurrences: Until Specified Admit Weight: 68.04 kg Estimated body mass index is 27.9 kg/m?? as calculated from the following: Height as of this encounter: 170.2 cm (5' 7). Weight as of this encounter: 80.8 kg (178 lb 2.1 oz). Wt Readings from Last 5 Encounters: 04/14/20 80.8 kg (178 lb 2.1 oz) Weight loss: not clinically significant Appetite: Good (50%-75%) Food allergies:no known food allergies Chewing/Swallowing difficulty: none Nausea/Vomiting: no nausea and no vomiting Last Bowel Movement: 04/13/20 Patient education / questions: all nutrition related questions answered at this time Nutrition services to follow weekly through hospital course unless consulted in the interim. Blanquita Rice Pager: [phone] Isha Franklin MD - 04/15/2020 11:19 AM EDT Images from the original note were not included. Inpatient Medicine Progress Note ID: Violet Cowan is a 39 y.o. female w/ PMH of AUD and GI episode in the past on HD# 3 for upper GI bleed from prepyloric ulcer s/p EGD clipping and GDA IR embolization w/ RUQ US suspicious for hepatic vein thrombus. 24 hr events: - No acute events overnight - no additional episodes of dizziness/lightheadedness - no w/d sxs (chills, sweats, tremor, n/v) Meds: Continuous Infusions: ??? sodium chloride 0.9% Scheduled Meds: ??? folic acid 1 mg Oral Daily ??? thiamine 100 mg Oral Daily ??? pantoprazole 40 mg Intravenous BID ??? phytonadione (vitamin K1) 10 mg Oral Daily ??? cefTRIAXone 1 g Intravenous Q24H ??? multivitamin with minerals 1 tablet Oral Daily ??? senna-docusate 2 tablet Oral BID PRN Meds:.ondansetron, sodium chloride 0.9% Vital Signs: Last value Range last 24 hrs Temperature Temp: 37 ??C (98.6 ??F) Temp: [37 ??C (98.6 ??F)-37.7 ??C (99.9 ??F)] Heart Rate Heart Rate: (!) 105 Heart Rate: [101-105] Blood Pressure BP: 108/73 BP: (92-108)/(58-73) Respiratory Rate Resp: 23 Resp: [20-23] SpO2 SpO2: 96 % SpO2: [93 %-98 %] Patient Vitals for the past 168 hrs: Weight 04/14/20 0600 80.8 kg (178 lb 2.1 oz) 04/13/20 0600 78.9 kg (173 lb 15.1 oz) 04/11/20 1713 75 kg (165 lb 5.5 oz) 04/11/20 1535 68 kg (150 lb) I/O: Intake/Output Summary (Last 24 hours) at 04/15/2020 1119 Last data filed at 04/14/20201999 Gross per 24 hour Intake 790 ml Output 365 ml Net 425 ml Physical Exam: Gen: in bed in NAD; alert, oriented, interactive HEENT: MMM, grossly normal ROM CV: RRR, normal S1/S2, no m/r/g Resp: CTAB, no distress Abd: +BS, soft, NT, ND, no HSM, no masses Ext: WWP, no cyanosis, no clubbing, 2+ DP pulses Neuro: no focal deficits noted, CN II-XII grossly intact, moves all extremities spontaneously Skin: jaundiced, no rash Labs Recent Labs 04/15/20 0845 04/14/20201404/14/20 0811 WBC 7.0 8.2 7.9 HGB 10.2* 10.6* 9.7* HCT 29.5* 31.0* 28.4* PLATELET 150 138* 121* Recent Labs 04/15/20 0405 04/14/20 0811 04/14/20 0120 04/13/20 0040 NA 138 -- 141 142 K 3.6 3.3* 3.2* 3.5 CL 106 -- 107 108* CO2 25 -- 26 25 BUN 11 -- 14 18 CREATININE 0.64* -- 0.63* 0.59* Recent Labs 04/15/20 0405 04/14/20 0120 04/13/20 0040 AST 102* 90* 70* ALT 26 20 18 ALKPHOS 79 84 80 BILITOT 7.3* 7.7* 6.9* BILIDIR 6.8* 7.2* 5.8* Recent Labs 04/15/20 0405 04/14/20 0120 04/13/20 0040 CALCIUM 7.7* 7.4* 7.3* Recent Labs 04/15/20 0405 04/13/20 0040 04/12/20 0415 INR 1.5 1.3 1.6 PT 16.9* 14.7* 18.5* PTT 33 37 38* No results for input(s): CK, TROPONINT in the last 168 hours. Recent Labs 04/12/20 0416 04/11/20195504/11/20 1719 POCGLU 135 151 169 No results for input(s): PROBNP in the last 168 hours. Micro Imaging/Studies: ASSESSMENT/PLAN: Violet Cowan is a 39 y.o. female w/ PMH of AUD on HD# 3 for upper GI bleeding from prepyloric ulcer s/p clipping x4 and IR embolization of GDA. Hemodynamically stable since IR embolization. Hgb 9.7 today, decr from 10.7 yesterday, stable 10.2 today. Asymptomatic. Pt received 3U PRBC at OSH and ad ditional 2U PRBC here. ?? Elevated liver enzymes thought to be due to alcoholic cirrhosis. Pt reportedly drinks approx 20oz EtOH daily since the of her father 3 years ago. HAV, HBV, and HCV studies unremarkable. Previous CT abd/pelvis showed hepatomegaly w/ large geographic areas of heterogeneously low-attenuation. RUQ US showed no flow in the proximal main portal vein, suspicious for thrombosis. Multiphasic MRI pending. On further discussion w/ pt, hx of miscarriage x2. Will f/u lupus anticoagulant panel, dRVVT, silica clotting time, liver studies per GI recs. ?? No withdrawal symptoms at this time. No hx of complicated w/d, DT's, seizure. Pt has been in the hospital for 72 hours. Will d/c CIWA. ?? #Prepyloric Bleeding Ulcer #Anemia - GI and IR consulted - S/p clips x4, GDA embolization - s/p 5 total units PRBC - ceftriaxone for SBP ppx (EOT 04/18) - IV PPI bid until 04/15, then transition to oral PPI bid - f/u stool H. pylori Ag w/ GI - daily CBC - avoid NSAIDs ?? #Alcohol Use Disorder #Elevated LFT's #Poor portal vein perfusion - thiamine, folate supplement - BIT consult - multiphasic liver MRI - lupus anticoagulant labs - Chronic liver disease eval: - HIV, ceruloplasmin, OXANA, ASMA, AMA, Ig levels, LKM, TTG, A1AT, iron studies ?? #L Breast Nodule - f/u outpt? #Routine PPX -DVT: deferred - GI: PPI for GI bleed Summary of Glc management: Diet: full liquid, advance as tolerated Consults: GI, IR, BIT Lines/Access: arterial line, PIV x2 CODE Status: full code ?? Isha Franklin MD, PGY-1 Medicine Blue Team (pgr. [id number]) Associated attestation - Karina Breaux MD - 04/15/2020 6:06 PM EDT Attending Attestation Please see Dr. Franklin's note for details of the patient history of presentation and data. I have discussed, reviewed and agree with the documented History, Physical findings, Assessment and Plan of care. Violet is a 39 y/o with alcohol use disorder, with markedly elevated bilis likely cirrhosis (INR 1.3, albumin 2.2) vs alcoholic hepatitis admitted with UGIB/hemorrhagic shock with prepyloric ulcer s/p clipping and GDA embolization with stable Hgb. Completing serologic cirrhosis (unrevealing to date) and 72hr IV PPI and abx for SBP prophylaxis. No asterixis, mild RUQ pain but otherwise no abdominalpain, no significant ascites or edema needing diuretics. Engage BIT for EtOH support. Will need hepatology f/u on discharge. I have examined the patient myself and personally reviewed all studies. In addition, I certify that I am a [facility] credentialed attending provider with admitting privileges and that the patient meets or has met medical necessity to require an inpatient IPI level of care meeting a minimum of two midnights or is on the [facility] inpatient only procedure list (status C) due to: Anabel Purvis MD - 04/15/2020 9:55 AM EDT Images from the original note were not included. DIVISION OF GASTROENTEROLOGY & HEPATOLOGY CONSULT PROGRESS NOTE REQUESTING PROVIDER: Karina Breaux MD NAME: Violet Cowan : 1980 INTERVAL: - Mentating well, no evidence of encephalopathy - Noting more abdominal distension today - Had one brown stool this morning - Hb stable - Results chronic liver disease thus far unrevealing - MRI liver with diffuse steatosis, patent vessels, small volume ascites - Off pressors 14-system ROS reviewed and negative except as above Past medical history: cirrhosis Past Surgical History: Procedure Laterality Date ??? IR ARTERIAL INTERVENTION 04/12/2020 IR Arterial Intervention 04/12/2020 Milo Steve, DO [facility] INTERVENTIONL RAD Social History: active EtOH at home, no tobacco or illicit drugs Family History: no known liver disease in mother/father or other family members MEDICATIONS Home Meds: No medications prior to admission. Current Meds: Scheduled: ??? folic acid 1 mg Oral Daily ??? thiamine 100 mg Oral Daily ??? pantoprazole 40 mg Intravenous BID ??? phytonadione (vitamin K1) 10 mg Oral Daily ??? cefTRIAXone 1 g Intravenous Q24H ??? multivitamin with minerals 1 tablet Oral Daily ??? senna-docusate 2 tablet Oral BID Drips: ??? sodium chloride 0.9% No Known Allergies OBJECTIVE Vitals: T Temp: [37 ??C (98.6 ??F)-37.7 ??C (99.9 ??F)] HR Heart Rate: [98-112] BP BP: (92-108)/(58-73) RR Resp: [18-23] SpO2 SpO2: [89 %-98 %] IO 04/14 0701 - 04/15 07 In: 1180 [P.O.:1150; I.V.:30] Out: 515 [Urine:515] Wt Last 80.8 kg (178 lb 2.1 oz) Admit 68.04 kg Physical Exam: GEN: Awake, alert, oriented HEENT: scleral icterus RESP: CTAB CARDIAC: sinus tachy, normal S1/S2, no appreciable murmurs ABDOMEN: Soft, distended, non-tender, normoactive bowel sounds EXTREM: Warm, 1+ edema NEURO: Awake, alert, moving all extremities spontaneously, no asterixis SKIN: Jaundice Labs: CBC: Recent Labs 04/15/20 0845 04/14/20201404/14/20 0811 04/13/20200904/13/20 0555 04/13/20 0040 04/12/20 1805 04/12/20 1310 WBC 7.0 8.2 7.9 11.5* 10.7* 11.4* 10.7* 10.8* HGB 10.2* 10.6* 9.7* 10.7* 10.6* 10.8* 10.8* 10.7* HCT 29.5* 31.0* 28.4* 32.0* 31.3* 32.4* 31.8* 31.4* MCV 90.2 89.9 90.2 91.4 90.7 90.5 90.3 89.0 RDWCV 17.2* 17.4* 17.7* 17.8* 18.0* 18.0* 18.1* 18.3* COAG: Recent Labs 04/15/20 0405 04/13/20 0040 04/12/20 0415 04/12/20 0010 04/11/20 1945 04/11/20 1545 PTT 33 37 38* 33 36 30 INR 1.5 1.3 1.6 1.6 1.6 1.5 CHEM: Recent Labs 04/15/20 0405 04/14/20 0811 04/14/20 0120 04/13/20 0040 04/12/20 0245 04/11/20 1545 GLUCOSE 94 -- 95 114 158 210* NA 138 -- 141 142 141 140 K 3.6 3.3* 3.2* 3.5 3.7 4.1 CL 106 -- 107 108* 108* 102 CO2 25 -- 26 25 22 20* BUN 11 -- 14 18 22* 24* CREATININE 0.64* -- 0.63* 0.59* 0.83 0.86 ALBUMIN 2.3* -- 2.2* 2.4* 2.5* 3.0* CALCIUM 7.7* -- 7.4* 7.3* 6.9* 7.3* HEPATIC: Recent Labs 04/15/20 0405 04/14/20 0120 04/13/20 0040 04/12/20 0245 04/11/20 1740 04/11/20 1545 ALKPHOS 79 84 80 87 -- 111* ALT 26 20 18 16 -- 22 AST 102* 90* 70* 69* -- 90* BILITOT 7.3* 7.7* 6.9* 4.6* -- 4.9* BILIDIR 6.8* 7.2* 5.8* 3.7* -- 3.5* LIPASE -- -- -- -- 15 20 IMAGING: Reports and images personally reviewed in [facility] MRI Abdomen wwo Contrast (Generic) Final Result [...] criteria and documentation are available online at [email or web address]. This report utilizes LI-RADS version 2018. Thank you for letting us participate in the care of this patient. For questions regarding this report, please contact the number below. Electronically signed by: Milo Steve DO, [facility] ([phone]), at 04/15/2020 7:46 AM XR Chest One View Final Result FINDINGS/IMPRESSION: RIGHT central catheter tip projects over the mid SVC. Pulmonary edema. Possible small pleural effusions and/or bibasilar atelectasis. No pneumothorax seen. Prominent cardiomediastinal silhouette, nonspecific given technique/positioning. Thank you for letting us participate in the care of this patient. For questions regarding this report, please contact the number below. Electronically signed by: Corby Godoy MD, [facility] ([phone]), at 04/13/2020 11:58 PM US Abdomen Vascular Limited Hepatology Protocol Final Result [...] 04/13/2020 at 12:30 pm. Lulú Sahu, [employer] Electronically Signed Final Report 04/13/2020 12:40 pm [...] contact the number below. Electronically signed by: Lulú Sahu MD, [facility] ([phone]), at 04/13/2020 8:55 AM IR Arterial Intervention Final Result XR Chest One View Final Result Endotracheal tube tip at the clavicle heads. Enteric tube in the stomach. Thank you for letting us participate in the care of this patient. For questions regarding this report, please contact the number below. Electronically signed by: Kyle Goode MD, [facility] ([phone]), at 04/11/2020 4:42 PM Film Library- Storage Only CT Abdomen & Pelvis Final Result ASSESSMENT & PLAN: 39/F hx possible cirrhosis (thought to be 2/2 EtOH, still actively drinking) admitted 04/11 w/ hematemesis in hemorrhagic shock. Initial concern for portal hypertensive bleed but found to have spurting prepyloric ulcer s/p clip x4 then taken for empiric GDA embolization by IR with resolution of bleeding. Has developed worsening conjugated hyperbilirubinemia with normal AP, mild elevation in AST but normal ALT. Mild Alc Hep possible v decompensated cirrhosis. LVUS showed slow flows through PV c/f acute partial thrombosis given vessels on CT and recent angio. Not a great candidate for AC given admission for hemorrhagic shock. MRI liver without evidence of thrombosis. Recommendations: - CBC daily, transfuse to maintain Hb>7 - F/U stool H pylori Ag, treat if positive - F/U OXANA, ASMA, AMA, LKM, TTG - No NSAIDs - Complete 72h IV PPI BID then transition to oral PPI BID given high-risk lesion on endoscopy - Complete 7d abx for SBP ppx, can transition to oral abx to complete course - Thiamine, folate - F/U with Hepatology clinic requested Patient seen with Dr. English. Kei Nunes MD PGY-4, Gastroenterology Attending Addendum: I interviewed and examined the patient with Dr. Nunes on rounds. I confirm the history and fish physical findings outlined in this note. The assessment and plan were formulated in discussion with me atthe time of this encounter, and I agree with them as documented. Anabel English MD Gastroenterology and hepatology Pager: [phone] Anabel English MD - 04/14/2020 7:34 AM EDT Images from the original note were not included. DIVISION OF GASTROENTEROLOGY & HEPATOLOGY CONSULT PROGRESS NOTE REQUESTING PROVIDER: Ashli Llamas MD NAME: Violet Cowan : 1980 INTERVAL: - Briefly off Levophed yesterday, on low-dose this morning - Mentating well, no evidence of encephalopathy - No further bleeding 14-system ROS reviewed and negative except as above Past medical history: cirrhosis Past Surgical History: Procedure Laterality Date ??? IR ARTERIAL INTERVENTION 04/12/2020 IR Arterial Intervention 04/12/2020 Milo Steve, DO [facility] INTERVENTIONL RAD Social history: active EtOH at home, no tobacco or illicit drugs Family history: no known liver disease in mother/father or other family members MEDICATIONS Home Meds: No medications prior to admission. Current Meds: Scheduled: ??? folic acid 1 mg Oral Daily ??? thiamine 100 mg Oral Daily ??? pantoprazole 40 mg Intravenous BID ??? phytonadione (vitamin K1) 10 mg Oral Daily ??? cefTRIAXone 1 g Intravenous Q24H ??? multivitamin with minerals 1 tablet Oral Daily ??? senna-docusate 2 tablet Oral BID Drips: ??? NORepinephrine 1 mcg/min (04/14/20 0733) ??? sodium chloride 0.9% No Known Allergies OBJECTIVE Vitals: T Temp: [37.1 ??C (98.8 ??F)-38.1 ??C (100.6 ??F)] HR Heart Rate: [96-113] BP BP: -- RR Resp: [16-25] SpO2 SpO2: [88 %-100 %] 04/13 0701 - 04/14 0700 In: 2800.8 [P.O.:850; I.V.:1345.8] Out: 750 [Urine:750] Wt Last 78.9 kg (173 lb 15.1 oz) Admit 68.04 kg Physical Exam: GEN: Extubated HEENT: scleral icterus RESP: CTAB CARDIAC: sinus tachy, normal S1/S2, no appreciable murmurs ABDOMEN: Soft, distended, non-tender, normoactive bowel sounds EXTREM: Warm, 1+ edema NEURO: Awake, alert, moving all extremities spontaneously, no asterixis SKIN: Jaundice Labs: CBC: Recent Labs 04/13/20200904/13/20 0555 04/13/20 0040 04/12/20 1805 04/12/20 1310 04/12/20 0810 04/12/20 0415 04/12/20 0010 WBC 11.5* 10.7* 11.4* 10.7* 10.8* 16.2* 18.4* 18.0* HGB 10.7* 10.6* 10.8* 10.8* 10.7* 11.5* 11.8 12.0 HCT 32.0* 31.3* 32.4* 31.8* 31.4* 33.6* 34.6* 35.7 MCV 91.4 90.7 90.5 90.3 89.0 89.1 88.7 91.1 RDWCV 17.8* 18.0* 18.0* 18.1* 18.3* 18.1* 17.6* 17.3* COAG: Recent Labs 04/13/20 0040 04/12/20 0415 04/12/20 0010 04/11/20 1945 04/11/20 1545 PTT 37 38* 33 36 30 INR 1.3 1.6 1.6 1.6 1.5 CHEM: Recent Labs 04/14/20 0120 04/13/20 0040 04/12/20 0245 04/11/20 1545 GLUCOSE 95 114 158 210* NA 141 142 141 140 K 3.2* 3.5 3.7 4.1 CL 107 108* 108* 102 CO2 26 25 22 20* BUN 14 18 22* 24* CREATININE 0.63* 0.59* 0.83 0.86 ALBUMIN 2.2* 2.4* 2.5* 3.0* CALCIUM 7.4* 7.3* 6.9* 7.3* HEPATIC: Recent Labs 04/14/20 0120 04/13/20 0040 04/12/20 0245 04/11/20 1740 04/11/20 1545 ALKPHOS 84 80 87 -- 111* ALT 20 18 16 -- 22 AST 90* 70* 69* -- 90* BILITOT 7.7* 6.9* 4.6* -- 4.9* BILIDIR 7.2* 5.8* 3.7* -- 3.5* LIPASE -- -- -- 15 20 IMAGING: Reports and images personally reviewed in [facility] XR Chest One View Final Result FINDINGS/IMPRESSION: RIGHT central catheter tip projects over the mid SVC. Pulmonary edema. Possible small pleural effusions and/or bibasilar atelectasis. No pneumothorax seen. Prominent cardiomediastinal silhouette, nonspecific given technique/positioning. Thank you for letting us participate in the care of this patient. For questions regarding this report, please contact the number below. Electronically signed by: Corby Godoy MD, [facility] ([phone]), at 04/13/2020 11:58 PM US Abdomen Vascular Limited Hepatology Protocol Final Result [...] 04/13/2020 at 12:30 pm. Lulú Sahu, [employer] Electronically Signed Final Report 04/13/2020 12:40 pm [...] contact the number below. Electronically signed by: Lulú Sahu MD, [facility] ([phone]), at 04/13/2020 8:55 AM IR Arterial Intervention Final Result XR Chest One View Final Result Endotracheal tube tip at the clavicle heads. Enteric tube in the stomach. Thank you for letting us participate in the care of this patient. For questions regarding this report, please contact the number below. Electronically signed by: Kyle Goode MD, [facility] ([phone]), at 04/11/2020 4:42 PM Film Library- Storage Only CT Abdomen & Pelvis Final Result MRI Abdomen wwo Contrast (Generic) (Results Pending) XR PICC Placement Over 5 Years with Imaging Guidance (IV Team) (Results Pending) ASSESSMENT & PLAN: 39/F hx likely cirrhosis [...] Mild Alc Hep possible v decompensated cirrhosis. LVUS showed slow flows through PV c/f acute thrombosis given vessels on CT and recent angio. Not a great candidate for AC given admission for hemorrhagic shock. Recommendations: - Can space CBC to daily, transfuse to maintain Hb>7 - F/U stool H pylori Ag, treat if positive - Recommend starting chronic liver disease eval as inpatient: please check HIV, ceruloplasmin, OXANA, ASMA, AMA, Ig levels, LKM, TTG, A1AT, iron studies - No NSAIDs - Complete 72h IV PPI BID then transition to oral PPI BID given high-risk lesion on endoscopy - Complete 7d abx for SBP ppx - CiWA, thiamine, folate - No need for MRI liver as inpatient from GI standpoint Patient seen with Dr. English. Kei Nunes MD PGY-4, Gastroenterology Attending Addendum: I interviewed and examined the patient with Dr. Nunes on rounds. I confirm the history and fish physical findings outlined in this note. The assessment and plan were formulated in discussion with me atthe time of this encounter, and I agree with them as documented. Anabel English MD Gastroenterology and hepatology Pager: [phone] Charli Arriola MD - 04/14/2020 7:14 AM EDT Critical Care Progress Note Patient Name: Violet Cowan Date of Admission: 04/11/2020 ( Hospital Day 3 days ) Service: Critical Care Medicine - Blue Team 1 #[id number] ID: Violet Cowan is a 39 y.o. female with a PMH significant for alcohol use, question of cirrhosis, who presented from [facility] via [facility] with hemorrhagic shock secondary to upper GIB, s/pEGD clipping and GDA IR embolization Interval Events: - in the last 24 hrs, in the process of weaning sedation. Successfully weaned this morning around 8am - Patient alert, oriented, no pain, hemodynamically stable - got R IJ central venous line yesterday evening - RUQ concerning for portal vein thrombus; will arrange for MR to confirm before starting AC Physical Exam: Last value Range last 24 hrs Temperature Temp: 37.7 ??C (99.9 ??F) Temp: [37.2 ??C (99 ??F)-38 ??C (100.4 ??F)] Heart Rate Heart Rate: (!) 104 Heart Rate: [96-112] Blood Pressure BP: 92/59 BP: (92)/(59) Respiratory Rate Resp: 22 Resp: [16-29] SpO2 SpO2: 96 % SpO2: [88 %-97 %] General: NAD, laying in bed HEENT: moist, clear Lungs: CTAB, no w/r/c Heart: tachycardic, no m/r/g Abdomen: soft, NT, protuberant, no fluid wave, no RUQ tenderness to deep palpation, liver edge palpated ~3-4 cm below costal margin Extremities: no peripheral edema Skin: No rashes ABG: Recent Labs 04/11/20 1753 PHART 7.38 [id number] 34* PO2ART 137* BTL8BLC 19.9* Ins/Outs: Intake/Output Summary (Last 24 hours) at 04/14/2020 1443 Last data filed at 04/14/2020 1200 Gross per 24 hour Intake 2208 ml Output 450 ml Net 1758 ml Patient Vitals for the past 168 hrs: Weight 04/14/20 0600 80.8 kg (178 lb 2.1 oz) 04/13/20 0600 78.9 kg (173 lb 15.1 oz) 04/11/20 1713 75 kg (165 lb 5.5 oz) 04/11/20 1535 68 kg (150 lb) Vent settings: Oxygen Therapy O2 Device: None (Room air) Labs: Recent Labs 04/14/20 0804/13/20200904/13/20 0555 WBC 7.9 11.5* 10.7* HGB 9.7* 10.7* 10.6* HCT 28.4* 32.0* 31.3* PLATELET 121* 141* 114* Recent Labs 04/14/20 0804/14/2011904/13/20 0040 04/12/20 0245 NA -- 141 142 141 K 3.3* 3.2* 3.5 3.7 CL -- 107 108* 108* CO2 -- 26 25 22 BUN -- 14 18 22* CREATININE -- 0.63* 0.59* 0.83 Recent Labs 04/14/2011904/13/20 0040 04/12/20 0245 AST 90* 70* 69* ALT 20 18 16 ALKPHOS 84 80 87 BILITOT 7.7* 6.9* 4.6* BILIDIR 7.2* 5.8* 3.7* Recent Labs 04/14/2011904/13/20 0040 04/12/20 0245 CALCIUM 7.4* 7.3* 6.9* Recent Labs 04/13/20 0040 04/12/20 0415 04/12/20 0010 INR 1.3 1.6 1.6 PT 14.7* 18.5* 18.8* PTT 37 38* 33 No results for input(s): CK, TROPONINT in the last 168 hours. Microbiology: Microbiology Results (Last 30 days) Procedure Component Value Units Date/Time Blood culture [[id number]] Collected: 04/12/20 0010 Lab Status: Preliminary result Specimen: Blood from Other Updated: 04/14/20 0701 Blood Culture No growth at 2 days. COVID-19 PCR [[id number]] Collected: 04/11/20 1633 Lab Status: Final result Specimen: Nasopharyngeal Swab Updated: 04/11/20 1859 Rapid SARS-CoV-2 RNA Not Detected Comment: This result should be interpreted in combination with the clinical observations, patient history and epidemiological information. For testing of asymptomatic individuals, assay performance characteristics and clinical utility have not been evaluated. Testing for SARS-CoV-2 (Severe acute respiratory syndrome coronavirus 2, formerly known as 2019 novel coronavirus or 2019-nCoV) to aid in the diagnosis of COVID-19 is performed using the Simplexa COVID-19 Direct Assay by meevl as authorized by the FDA issued Emergency Use Authorization (EUA). This assay is intended for In-vitro Diagnostic (IVD) use with nasopharyngeal swabs collected from individuals meeting the CDC criteria for testing. The assay is performed based on the instructions for use and additional guidance provided by the FDA. Testing is performed in the Microbiology Laboratory within the Department of Pathology and Laboratory Medicine at [facility], certified under the Clinical Laboratory Improvement Amendments of 1988 (CLIA), 42 U.S.C. section 263a, to perform high complexity tests. Assay performance has been verified according to clinical laboratory regulatory requirements. Test results are provided above. A result of Not Detected indicates that the viral RNA target is not present but does not preclude SARS-CoV-2 infection. False negative results may occur if a specimen is improperly collected, transported or handled; if amplification inhibitors are present; or if inadequate numbers of viral particles are present in the specimen. A result of Detected suggests a current or recent infection and the patient is presumed to be infected. Positive and negative predictive values for this test are highly dependent on disease prevalence. A result of Invalid indicates the inability to conclusively determine the presence or absence of SARS-CoV-2 RNA in the sample which can be due to a variety of factors. Recollection is recommended in the case of an invalid result. CDC COVID-19 criteria for testing on human specimens and clinical management guidance information are available at the CDC Coronavirus Disease 2019 (COVID-19) webpage under Information for Healthcare Professionals (https://www.cdc.gov/coronavirus/2019-ncov/hcp/index.html). SARS-CoV-2 Source [employer] Swab Imaging/Studies: Results for orders placed or performed during the hospital encounter of 04/11/20 XR Chest One View (Exam End: 04/11/2020 4:34 PM) Impression Endotracheal tube tip at the clavicle heads. Enteric tube in the stomach. Thank you for letting us participate in the care of this patient. For questions regarding this report, please contact the number below. Electronically signed by: Kyle Goode MD, [facility] ([phone]), at 04/11/2020 4:42 PM US Abdomen Vascular Limited Hepatology Protocol (Exam End: 04/13/2020 11:26 AM) Impression 1. No flow detected in the proximal [...] 04/13/2020 at 12:30 pm. Lulú Sahu, [employer] Electronically Signed Final Report 04/13/2020 12:40 pm Request For 2nd Read CT Abdomen & Pelvis (Exam End: 04/12/2020 8:17 PM) Impression 1. Hepatomegaly with large geographic areas of [...] contact the number below. Electronically signed by: Lulú Sahu MD, [facility] ([phone]), at 04/13/2020 8:55 AM XR Chest One View (Exam End: 04/13/2020 11:54 PM) Impression FINDINGS/IMPRESSION: RIGHT central catheter tip projects over the mid SVC. Pulmonary edema. Possible small pleural effusions and/or bibasilar atelectasis. No pneumothorax seen. Prominent cardiomediastinal silhouette, nonspecific given technique/positioning. Thank you for letting us participate in the care of this patient. For questions regarding this report, please contact the number below. Electronically signed by: Corby Godoy MD, [facility] ([phone]), at 04/13/2020 11:58 PM Scheduled Medications: ??? folic acid 1 mg Oral Daily ??? thiamine 100 mg Oral Daily ??? pantoprazole 40 mg Intravenous BID ??? phytonadione (vitamin K1) 10 mg Oral Daily ??? cefTRIAXone 1 g Intravenous Q24H ??? multivitamin with minerals 1 tablet Oral Daily ??? senna-docusate 2 tablet Oral BID Infusing Medications: ??? sodium chloride 0.9% PRN Medications: LORazepam OR LORazepam OR LORazepam, ondansetron, sodium chloride 0.9%, glucose 40% oral geLOR dextrose 10% OR glucagon (human recombinant) Assessment: 39 y.o. female with history of alcohol use, found to have gastric ulcer bleeding, now s/p clipping and empiric embolization of the GDA. Has remained relatively stable off levophed since this morning. Does not appear to be actively bleeding. Rise in LFTs concerning for possible intrahepatic obstruction. There is no ALP elevation or significant hepatocellular injury. May be from resorption from blood administration, however this seems less likely to explain this high of a jump. RUQ US did not detect flow in the proximal main portal vein; possibly thrombus. Patient has history of two prior miscarriages; coagulopathy panel pending. Willfollow-up with MRI to confirm thrombus before starting anticoagulation. Summary of Today's Plan (04/14/20): - Stable to go to floor - DIANNA alejandreivan - D/C yuliet - LUIS MIGUEL consulted; patient was agreeable - MRI liver pending Neuro: -Now off sedation / analgesia ?? #Alcohol use #Folate deficiency -Thiamine, folate, multivitamin -[facility] w/ ativan -BIT team consulted ?? Pulm: MILTON, now extubated CV #Hemorrhagic shock - acute UGIB, stable -s/p EGD and IR embolization -off pressors as of this morning; stable -See GI ? GI: #Concern for Cirrhosis / portal hypertension #Hepatomegaly -Hep A/B/C negative -q12h H/H and coags -CTX x 7 days (04/11 - 04/17) -PPI IV 40mg BID -Maintain 2x large bore IV -Maintain Type and screen -RUQ ultrasound w/ doppler done; MRI pending ?? #Mural wall thickening -nonspecific, likely inflammatory 2/2 chronic alcohol use -monitor for signs of infection ?? Renal/FEK: MILTON, replete lytes PRN ?? Hematology: #Anemia #Folate deficiency -GI losses and likely nutritional -B12 normal -replete folate #Concern for DIC -trend coags / fibrinogen -plt >50 and Hgb >7 -Fibrinogen >100 ?? ID: MILTON ?? Endocrine: #Hyperglycemia -ISS, FSBG monitoring ?? Other prophylaxis: HOLDING DVT prophylaxis due to GIB IV PPI for GI prophylaxis Advance diet as possible HOB > 30 Mepliex to sacrum ?? Lines/Tubes/Drains: R Radial A-line, IJ central venous catheter ?? Consults: GI, BIT Decision Making: , Nawaf Cowan Code Status: FULL ?? Disposition: to floor Charli Arriola MD Internal Medicine PGY-1 Blue Team Pager #[phone] Associated attestation - Ashli Llamas MD - 04/15/2020 1:28 PM EDT I have seen and examined Ms. Cowan and I am in agreement with the plan as stated above. Ms. Cowan is looking well this morning. She is not going through withdrawal, and has been able to stop drinking several times over the last few years without any withdrawal symptoms. She has been stable sinceher GDA embolization. 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 She is stable for transfer to the floor. IS PATIENT CRITICALLY ILL ? Is there a high potential of sudden, clinically significant, or life threatening deterioration? No Is there a need for direct personal assessment and management to treat/prevent multiple vital organfailure/deterioration? No If this patient is not critically ill, I certify the patient requires continued in-patient hospitalization for continued care of withdrawal and GDA bleed. PATIENT IS CRITICALLY ILL WITH THESE DIAGNOSES BEING MANAGED BY CCS TEAM: Active Hemorrhage Gastrointestinal Liver Failure Chronic hepatic failure with coma I personally performed 45 minutes of aggregate critical care time exclusive of procedures and teaching. This includes time spent during direct patient evaluation and reassessment, interpreting diagnostic tests, directing life and/or organ supporting interventions and documentation on the unit. MD Jona Reza Sharene, GROCERY PACKER - 04/14/2020 6:24 AM EDT Vascular and Interventional Radiology Inpatient Progress Note Admitted 04/11/2020 Procedure: Mesenteric Angiogram with GDA Embolization Post-procedure day: #2 Time of patient encounter: 0600 24 Hour Events: Stable overnight. Remains tachycardic, with HR in the 100-low 110s. Remaining VSS and WNL. - H/H stable for the past 48hours. No blood products required in past 48 hours. - No further maroon stools. - TBili and fibrinogen continue to elevate. - RUQ US showed little to no flow in PV Last Value 24 Hour Range Temperature 37.6 ??C (99.7 ??F) Temp: [37.1 ??C (98.8 ??F)-38.1 ??C (100.6 ??F)] Heart Rate 99 Heart Rate: [96-113] Blood Pressure (!) 87/52 BP: -- Respiratory Rate 17 Resp: [16-25] SpO2 95 % SpO2: [88 %-100 %] GEN: Awakened exam; NAD. Denies pain in abdomen or legs. PV: RT groin dressing C/D/I;some mild ecchymosis seen. Pedal pulses palpable bilaterally Labs: 04/14 CBC pending 04/14/2020 05:54 04/12/2020 13:10 04/12/2020 18:05 04/13/2020 00:40 04/13/2020 05:55 04/13/2020 20:10 WBC 10.8 (H) 10.7 (H) 11.4 (H) 10.7 (H) 11.5 (H) RBC 3.53 (L) 3.52 (L) 3.58 (L) 3.45 (L) 3.50 (L) Hemoglobin 10.7 (L) 10.8 (L) 10.8 (L) 10.6 (L) 10.7 (L) Hematocrit 31.4 (L) 31.8 (L) 32.4 (L) 31.3 (L) 32.0 (L) Results for VIOLET COWAN ( ) as of 04/14/2020 05:54 04/11/2020 15:45 04/11/2020 17:40 04/12/2020 02:45 04/13/2020 00:40 04/14/2020 01:20 Total Protein 5.8 (L) 4.7 (L) 4.5 (L) 4.5 (L) Albumin 3.0 (L) 2.5 (L) 2.4 (L) 2.2 (L) Total Bilirubin 4.9 (H) 4.6 (H) 6.9 (H) 7.7 (H) Bili, Direct 3.5 (H) 3.7 (H) 5.8 (H) 7.2 (H) Alk Phos 111 (H) 87 80 84 AST 90 (H) 69 (H) 70 (H) 90 (H) ALT 22 16 18 20 Ammonia 82 (H) Lipase 20 15 Micro: N/A Imaging: ABD US 04/13 1. No flow detected in the proximal [...] likely to be related to the ascites. ?? Assessment & Plan: 39 y.o. female with h/o alcohol use disorder transferred to [facility] in hemorrhagic shock after hematemesis s/p clipping x4 of a bleeding prepyloric ulcer with GI, subsequent Hgb drop, persistent tachycardia, requiring transfusion and pressor support now POD2 s/p mesenteric Angiogram with GDA Embolization. Patient's H/H has remained stable and no blood product transfusions have been required for the past 48 hours. No further maroon stools. She remains mildly tachycardic TBili continues to increase, concerning PV thrombus (minimal flow on US). MRI planned for today. ?? - Continue H/H checks can be liberated to q12hr - MRI to be performed today - IR will continue to follow. Please page with any questions/concerns. Rock Parham MD - 04/13/2020 11:52 PM EDT Central Line Placement Procedure Note Items highlighted in red are State Reported items for central line compliance documentation. Procedure Diagnosis: Hypotension 2/2 Hemorrhagic Shock and/or Possible Cirrhosis Risks and Benefits reviewed: yes. Informed Consent obtained: yes Reason for insertion: new central line Time out performed and documented: yes Hand Hygiene performed: Yes Skin prepped with: chlorhexidine Skin prep agent completely dry at time of first puncture: yes 5 ml of 1% lidocaine was used for local anesthesia. Sterile drape: large sterile drape used Mask/eye shield: mask/eye shield used Large sterile gown: large sterile gown used Sterile gloves: sterile gloves used Cap worn: cap worn Ultrasound guidance used for insertion: Yes Kit type used: An 18 Ga. X 2.5 inch needle was placed in vein after blood return identified. Guided by a 0.032 inch diameter guide wire, a 7 Fr., 3 lumen Catheter 16 cm in length antibiotic impregnatedcatheter was inserted using the Seldinger Technique. Catheter type: CVL Tunneled/Non Tunneled: non tunneled Insertion Site: jugular (internal) Insertion Side: right Number of attempts: 1 Insertion successful: Yes Catheter sutured at the skin at: 16 cm . Sterile dressing: Chlorhexidine Tegaderm Findings: Patient tolerated procedure well., Blood returned appropriately. Complications: No Complications. Chest X-ray ordered: yes Patient location at time of insertion: ICU 4 [place] Procedure Comments: N/A Rock Parham MD Associated attestation - Muriel Xie MD - 04/14/2020 10:04 AM EDT I was not present in the room at the time of this procedure. Murile Xie MD - 04/13/2020 10:12 AM EDT MICU STAFF PROGRESS NOTE Critical Care Medicine Author: Muriel Xie MD Patient seen and examined on critical care rounds. HPI Ms. Cowan is a 39 year old female who presented to an OSH with bright red hematemesis after a fewdays of coffee ground emesis. She was noted to be hypotensive , tachycardic and anemic. She received3 U PRBCs at [facility] , started on an octreotide gtt and PPI. She was brought to the ER at [facility]. She was given propofol and ketamine for sedation and rocuronium prior to intubation for airway protection. She was also given 1 g of IV ceftriaxone. Prior to presentation to the MICU, she received a total of 4 units PRBCs and 2 units FFP's. She had a recent hospital admission to [facility] on 04/09 and at that time a CT abdomen pelvis showed findings concerning for acute hepatitis versus cirrhosis and mural wall thickening from cecum to descending colon, diffusemesenteric venous engorgement concerning for portal hypertension. The patient has been an active drinker for the past 3 years, up to 20 ounces a day. The patient was admitted to the [facility] MICU where she underwent an emergent endoscopy which demonstrated a bleeding prepyloric gastric ulcer requiring 4 clips for hemostasis. Subsequently, overnight, the patient continued to have downtrending hemoglobin and increasing pressor requirements at which timeIR was consulted. She had received a total of 6 units PRBCs and 2 units FFP's. She was taken by IR and an empiric embolization of the gastroduodenal artery with a combination of Amplatzer plug, coils and Gelfoam slurry was done. The patient did well post procedure. Her Hgb stabilized. INTERVAL EVENTS: Pressors restarted overnight. No significant nausea. Received 2 fluid boluses overnight. Had melanotic stool overnight. ROS: All other ROS are unremarkable except those mentioned above in interval events Exam: Patient Vitals for the past 8 hrs: Temp Temp src Pulse Resp SpO2 Height Weight 04/13/20 0949 37.3 ??C (99.1 ??F) -- -- -- -- -- -- 04/13/20 0800 37.1 ??C (98.8 ??F) Oral (!) 103 16 92 % -- -- 04/13/20 0600 37.2 ??C (99 ??F) Oral (!) 113 14 95 % 170.2 cm (5' 7) 78.9 kg (173 lb 15.1 oz) 04/13/20 0400 37.6 ??C (99.7 ??F) Oral 99 18 95 % -- -- 04/13/20 0300 -- -- 100 15 93 % -- -- GEN: Patient is lying comfortably, No accessory muscle use PULM: Clear breath sounds bilaterally CVS: S1 S2 normal. No murmurs ABDO: soft, NT, BS (+) EXT: warm well perfused LE bilaterally, No LE edema. 2 (+) DP palpable bilaterally. NEURO: alert, awake, oriented x 3. No focal deficits. Current Drips: Levo @ 4 Labs/studies:Last 3 wbc, hgb, hct plt Recent Labs 04/13/20 0555 04/13/20 0040 04/12/20 1805 WBC 10.7* 11.4* 10.7* HGB 10.6* 10.8* 10.8* HCT 31.3* 32.4* 31.8* PLATELET 114* 115* 111* Last 3 Lytes Recent Labs 04/13/20 0040 04/12/20 0245 04/11/20 1545 NA 142 141 140 K 3.5 3.7 4.1 CL 108* 108* 102 CO2 25 22 20* BUN 18 22* 24* CREATININE 0.59* 0.83 0.86 Last 3 LFTs Recent Labs 04/13/20 0040 04/12/20 0245 04/11/20 1545 AST 70* 69* 90* ALT 18 16 22 ALKPHOS 80 87 111* BILITOT 6.9* 4.6* 4.9* BILIDIR 5.8* 3.7* 3.5* Last Ca, Mg, Phos Recent Labs 04/13/20 0040 CALCIUM 7.3* Last 3 Coags Recent Labs 04/13/20 0040 04/12/20 0415 04/12/20 0010 PT 14.7* 18.5* 18.8* INR 1.3 1.6 1.6 PTT 37 38* 33 Last 3 ProBNP, Trop, CK No results for input(s): CK, TROPONINT, PROBNP in the last 168 hours. Active problems: 1. GI bleed 2. Hemorrhagic shock 3. Acute blood loss anemia 4. Pre Pyloric ulcer 5. Alcohol use disorder 6. Possible cirrhosis 7. ? Alcoholic hepatitis 8. Leucocytosis. 9. Intubated for airway protection ASSESSMENT, MANAGEMENT, and DECISION MAKIN. NEURO A) Alcohol use. - Continue CIWA protocol for alcohol use. - Continue Thiamine and folate , switch to PO. 2. PULM A) intubated for airway protection -Extubated successfully yesterday ( 04/12/20 ) - Patient is doing well on a nasal canula. Will wean supplemental oxygen completely. 3. CVS A ) Hypotension likely hemorrhagic shock -Patient is still on low-dose norepinephrine. She was weaned off yesterday but had to be restarted for hypotension last night. She is on very minimal doses at this time. We will give 1 L LR bolus and try to wean norepinephrine off. If the patient remains on pressors persistently, will need a central access. 4. GI A) GI bleed secondary to a prepyloric gastric ulcer -Status post endoscopic clips for hemostasis followed by empiric GDA embolization by IR on 04/11/2020 -Switch Protonix drip to PPI twice daily. -Continue ceftriaxone to finish a 7-day course (04/11-04/17) -Vitamin K 10 mg x 3 days. Switch to oral vitamin K. -Right upper quadrant ultrasound done today showed No flow in the proximal main portal vein.For worsening bilirubin demonstrated. Biphasic MRI ordered. - Started on clear liquids last evening, tolerated that well. Advance diet as tolerated. B) Hepatomegaly Concern for cirrhosis/portal hypertension - Transaminitis could be sec to alcoholic hepatitis. AST/ALT has remained stable. 5. HEME A) acute blood loss anemia -Status post 6 units PRBC transfusion Trend H/H q12h - Transfuse to keep Hgb > 7 , platelets > 50, fibrinogen > 100. 6. ID A) leucocytosis likely stress response - Improved. Px : protonix/SCD Discontinue Bhatti. IS PATIENT CRITICALLY ILL ? Is there a high potential of sudden, clinically significant, or life threatening deterioration? Yes Is there a need for direct personal assessment and management to treat/prevent multiple vital organfailure/deterioration? Yes If this patient is not critically ill, I certify the patient requires continued in-patient hospitalization for NA PATIENT IS CRITICALLY ILL WITH THESE DIAGNOSES BEING MANAGED BY CCS TEAM: GI bleed Acute blood loss anemia Hemorrhagic shock I personally performed 30 minutes of aggregate critical care time exclusive of procedures and teaching. This includes time spent during direct patient evaluation and reassessment, interpreting diagnostic tests, directing life and/or organ supporting interventions and documentation on the unit. Muriel Xie MD Kei Nunes MD - 04/13/2020 9:32 AM EDT Images from the original note were not included. DIVISION OF GASTROENTEROLOGY & HEPATOLOGY CONSULT PROGRESS NOTE REQUESTING PROVIDER: Muriel Xie MD NAME: Violet Cowan : 1980 INTERVAL: - Extubated - On low Levo req - Hb stable, no further transfusions. Passing remnant melena. - Worsening hyperbilirubinemia (T bili 7), AP 80, AST 70, ALT 18 - CT from OSH (04/09) re-read here, noted scattered low-attenuation lesions c/f possible ischemic v infiltrative process v steatosis, patent vessels - LVUS today with slow v absent flow in proximal main portal vein c/f acute PVT, trace ascites 14-system ROS reviewed and negative except as above Past medical history: cirrhosis Past Surgical History: Procedure Laterality Date IR ARTERIAL INTERVENTION 04/12/2020 IR Arterial Intervention 04/12/2020 Milo Steve, DO [facility] INTERVENTIONL RAD Social history: active EtOH at home, no tobacco or illicit drugs Family history: no known liver disease in mother/father or other family members MEDICATIONS Home Meds: No medications prior to admission. Current Meds: Scheduled: folic acid 1 mg Oral Daily thiamine 100 mg Oral Daily pantoprazole 40 mg Intravenous BID [START ON 04/14/2020] phytonadione (vitamin K1) 10 mg Oral Daily bolus IV fluid Intravenous Once cefTRIAXone 1 g Intravenous Q24H multivitamin with minerals 1 tablet Oral Daily senna-docusate 2 tablet Oral BID Drips: PHENYLephrine NORepinephrine 4 mcg/min (04/13/20 8073) sodium chloride 0.9% No Known Allergies OBJECTIVE Vitals: T Temp: [37.1 ??C (98.8 ??F)-38.1 ??C (100.6 ??F)] HR Heart Rate: [99-113] BP BP: -- RR Resp: [13-25] SpO2 SpO2: [90 %-100 %] 04/12 07 - 04/13 07 In: 2858.2 [P.O.:250; I.V.:2372.2] Out: 1210 [Urine:1210] Wt Last 78.9 kg (173 lb 15.1 oz) Admit 68.04 kg Physical Exam: GEN: Extubated HEENT: scleral icterus RESP: CTAB CARDIAC: sinus tachy, normal S1/S2, no appreciable murmurs ABDOMEN: Soft, distended, non-tender, normoactive bowel sounds EXTREM: Warm, 1+ edema NEURO: Awake, alert, moving all extremities spontaneously, no asterixis SKIN: Jaundice Labs: CBC: Recent Labs 04/13/20 0555 04/13/20 0040 04/12/20 1805 04/12/20 1310 04/12/20 0810 04/12/20 0415 04/12/20 0010 04/11/20 194 WBC 10.7* 11.4* 10.7* 10.8* 16.2* 18.4* 18.0* 16.2* HGB 10.6* 10.8* 10.8* 10.7* 11.5* 11.8 12.0 10.2* HCT 31.3* 32.4* 31.8* 31.4* 33.6* 34.6* 35.7 30.2* MCV 90.7 90.5 90.3 89.0 89.1 88.7 91.1 91.2 RDWCV 18.0* 18.0* 18.1* 18.3* 18.1* 17.6* 17.3* 18.0* COAG: Recent Labs 04/13/20 0040 04/12/20 0415 04/12/20 0010 04/11/20 1945 04/11/20 1545 PTT 37 38* 33 36 30 INR 1.3 1.6 1.6 1.6 1.5 CHEM: Recent Labs 04/13/20 0040 04/12/20 0245 04/11/20 1545 GLUCOSE 114 158 210* NA 142 141 140 K 3.5 3.7 4.1 CL 108* 108* 102 CO2 25 22 20* BUN 18 22* 24* CREATININE 0.59* 0.83 0.86 ALBUMIN 2.4* 2.5* 3.0* CALCIUM 7.3* 6.9* 7.3* HEPATIC: Recent Labs 04/13/20 0040 04/12/20 0245 04/11/20 1740 04/11/20 1545 ALKPHOS 80 87 -- 111* ALT 18 16 -- 22 AST 70* 69* -- 90* BILITOT 6.9* 4.6* -- 4.9* BILIDIR 5.8* 3.7* -- 3.5* LIPASE -- -- 15 20 IMAGING: Reports and images personally reviewed in [facility] US Abdomen Vascular Limited Hepatology Protocol Final Result [...] 04/13/2020 at 12:30 pm. Lulú Sahu, [employer] Clerk Electronically Signed Final Report 04/13/2020 12:40 pm [...] contact the number below. Electronically signed by: Lulú Sahu MD, [facility] ([phone]), at 04/13/2020 8:55 AM IR Arterial Intervention Final Result XR Chest One View Final Result Endotracheal tube tip at the clavicle heads. Enteric tube in the stomach. Thank you for letting us participate in the care of this patient. For questions regarding this report, please contact the number below. Electronically signed by: Kyle Goode MD, [facility] ([phone]), at 04/11/2020 4:42 PM Film Library- Storage Only CT Abdomen & Pelvis Final Result MRI Abdomen wwo Contrast (Generic) (Results Pending) XR PICC Placement Over 5 Years with Imaging Guidance (IV Team) (Results Pending) ASSESSMENT & PLAN: 39/F hx cirrhosis, likely EtOH, still actively drinking, c/b pHTN, small scattered GV, thrombocytopenia admitted 04/11 w/ hematemesis in hemorrhagic shock. Initial concern for portal hypertensive bleed but found to have spurting prepyloric ulcer s/p clip x4 then taken for empiric GDA embolization by IRwith resolution of bleeding. Has developed worsening conjugated hyperbilirubinemia (T bili 7) with normal AP, mild elevation in AST (70) but normal ALT. Alc Hep possible but would expect aminotransferases to be higher. T bili could also be in setting of decompensated cirrhosis. Spoke with Radiology re: re-read of OSH CT who had recommended outpatient MR liver but then LVUS resulted with concern for acute PVT. Planning inpatient MR now. Concern for candidacy for aC given that patient just had significant UGIB although it was definitively managed with embolization. Recommendations: - Maintain two large-bore IVs - Can space CBC to q12h, transfuse to maintain PLT >50, Hb>7 - INR goal <1.5, give PO vitamin K 10mg x3d for any nutritional component to coagulopathy - F/U stool H pylori Ag, treat if positive - No NSAIDs - PPI BID - Complete 7d abx for SBP ppx - CiWA, thiamine, folate - F/U MRI liver - Can pursue outpatient colonoscopy given findings on CT - HAV non-immune, HBV non-immune, HCV neg. Will plan for outpatient Hepatology clinic F/U for more extensive cirrhosis eval, HAV/HBV vaccination, Fibroscan. Patient seen with Dr. Pringle. Kei Nunes MD PGY-4, Gastroenterology Associated attestation - Kye Pringle MD - 04/13/2020 11:41 PM EDT I have seen and evaluated the patient with Dr. Nunes. I have reviewed the fellow's history during the encounter and I agree with the details as written above. My physical examination confirms the above findings. The assessment and plan were formulated in discussion with me at the time of the encounter and I agree with them as documented. Kye Pringle MD, [employer] Guest Coordinatorsecurity engineer Section of Gastroenterology and Hepatology Susan Grider - 04/13/2020 8:37 AM EDT Vascular and Interventional Radiology Inpatient Progress Note Admitted 04/11/2020 Procedure: Mesenteric Angiogram with GDA Embolization Post-procedure day: #1 Time of patient encounter: 8:20AM 24 Hour Events: - Patient extubated yesterday without issues. Remains tachycardic, with HR in the 100-low 110s. Remaining VSS and WNL. - H/H stable for the past 24 hours. No blood products required in past 24 hours. - Maroon stool x1 yesterday, likely old clotted blood as per the ICU team. - TBili and fibrinogen elevated on this morning's labwork. Last Value 24 Hour Range Temperature 37.2 ??C (99 ??F) Temp: [37.2 ??C (99 ??F)-38 ??C (100.4 ??F)] Heart Rate (!) 113 Heart Rate: [99-125] Blood Pressure (!) 87/52 BP: -- Respiratory Rate 14 Resp: [9-25] SpO2 95 % SpO2: [90 %-100 %] Physical Exam DEFERRED Patient was sleeping comfortably in bed at time of visit this AM Drains/Tubes: N/A Labs: Last 3 wbc, hgb, hct plt Recent Labs 04/13/20 0555 04/13/20 0040 04/12/20 1805 WBC 10.7* 11.4* 10.7* HGB 10.6* 10.8* 10.8* HCT 31.3* 32.4* 31.8* PLATELET 114* 115* 111* Last 3 Lytes Recent Labs 04/13/20 0040 04/12/20 0245 04/11/20 1545 NA 142 141 140 K 3.5 3.7 4.1 CL 108* 108* 102 CO2 25 22 20* BUN 18 22* 24* CREATININE 0.59* 0.83 0.86 Last 3 LFTs Recent Labs 04/13/20 0040 04/12/20 0245 04/11/20 1545 AST 70* 69* 90* ALT 18 16 22 ALKPHOS 80 87 111* BILITOT 6.9* 4.6* 4.9* BILIDIR 5.8* 3.7* 3.5* Micro: N/A Imaging: None since the time of the procedure. Assessment & Plan: 39 y.o. female with h/o alcohol use disorder transferred to [facility] in hemorrhagic shock after hematemesis s/p clipping x4 of a bleeding prepyloric ulcer with GI, subsequent Hgb drop, persistent tachycardia, requiring transfusion and pressor support now POD1 s/p mesenteric Angiogram with GDA Embolization. Patient's H/H has remained stable and no blood product transfusions have been required for the past 24 hours. 1 maroon stool yesterday was attributed to old clotted blood. She remains mildly tachycardic, however this is improved compared to prior and other etiologies may also be considered/contributory (for example pain, alcohol withdrawal). No clear explanation/cause for risein fibrinogen at this time. TBili has also increase in the past 24 hours. ?? - H/H checks can be liberated to q12hr from an IR perspective. - RUQ U/S to be performed today - IR will continue to follow. Please page with any questions/concerns. Susan Grider MD Diagnostic and Interventional Radiology (PGY 5) Pager No.: [phone] Jossy Alfaro MD - 04/13/2020 6:47 AM EDT Critical Care Progress Note Patient Name: Violet Cowan Date of Admission: 04/11/2020 ( Hospital Day 2 days ) Service: Critical Care Medicine - Blue Team 1 #[id number] ID: Violet Cowan is a 39 y.o. female with a PMH significant for alcohol use, question of cirrhosis, who presented from [facility] via [facility] with hemorrhagic shock secondary to upper GIB, s/pEGD clipping and GDA IR embolization Interval Events: Successfully extubated yesterday to 1L NC Was off levophed for most of day, back on low dose (2 - 4) with MAPs remaining in the 70s - 89 Low grade tachycardia 90s - 110s, received 2L LR over the course of the day -UOP adequate, 1.2L total yesterday Comfortable this morning without any abdominal pain, hematemesis or vomiting. Mild self-limited nausea, having maroon colored stool. Physical Exam: Last value Range last 24 hrs Temperature Temp: 37.2 ??C (99 ??F) Temp: [37.2 ??C (99 ??F)-38 ??C (100.4 ??F)] Heart Rate Heart Rate: (!) 113 Heart Rate: [99-125] Blood Pressure BP: (!) 87/52 BP: -- Respiratory Rate Resp: 14 Resp: [9-25] SpO2 SpO2: 95 % SpO2: [90 %-100 %] General: NAD, laying in bed HEENT: dry blood in oral mucosa, appears dry Lungs: CTAB, no w/r/c Heart: tachycardic, no m/r/g Abdomen: soft, NT, protuberant, no fluid wave, no RUQ tenderness to deep palpation, liver edge palpated ~3-4 cm below costal margin Extremities: no peripheral edema Skin: No rashes ABG: Recent Labs 04/11/20 1753 PHART 7.38 [id number] 34* PO2ART 137* [id number] 19.9* Ins/Outs: Intake/Output Summary (Last 24 hours) at 04/13/2020 0647 Last data filed at 04/13/2020 0600 Gross per 24 hour Intake 2858.2 ml Output 1210 ml Net 1648.2 ml Patient Vitals for the past 168 hrs: Weight 04/13/20 0600 78.9 kg (173 lb 15.1 oz) 04/11/20 1713 75 kg (165 lb 5.5 oz) 04/11/20 1535 68 kg (150 lb) Vent settings: Oxygen Therapy O2 Device: Nasal cannula O2 Flow Rate (L/min): 1 L/min FiO2 (%): 35 % Labs: Recent Labs 04/13/20 0555 04/13/20 0040 04/12/20 1805 WBC 10.7* 11.4* 10.7* HGB 10.6* 10.8* 10.8* HCT 31.3* 32.4* 31.8* PLATELET 114* 115* 111* Recent Labs 04/13/20 0040 04/12/20 0245 04/11/20 1545 NA 142 141 140 K 3.5 3.7 4.1 CL 108* 108* 102 CO2 25 22 20* BUN 18 22* 24* CREATININE 0.59* 0.83 0.86 Recent Labs 04/13/20 0040 04/12/20 0245 04/11/20 1545 AST 70* 69* 90* ALT 18 16 22 ALKPHOS 80 87 111* BILITOT 6.9* 4.6* 4.9* BILIDIR 5.8* 3.7* 3.5* Recent Labs 04/13/20 0040 04/12/20 0245 04/11/20 1545 CALCIUM 7.3* 6.9* 7.3* Recent Labs 04/13/20 0040 04/12/20 0415 04/12/20 0010 INR 1.3 1.6 1.6 PT 14.7* 18.5* 18.8* PTT 37 38* 33 No results for input(s): CK, TROPONINT in the last 168 hours. Microbiology: Microbiology Results (Last 30 days) Procedure Component Value Units Date/Time COVID-19 PCR [[id number]] Collected: 04/11/20 1633 Lab Status: Final result Specimen: Nasopharyngeal Swab Updated: 04/11/20 1859 Rapid SARS-CoV-2 RNA Not Detected Comment: This result should be interpreted in combination with the clinical observations, patient history and epidemiological information. For testing of asymptomatic individuals, assay performance characteristics and clinical utility have not been evaluated. Testing for SARS-CoV-2 (Severe acute respiratory syndrome coronavirus 2, formerly known as 2019 novel coronavirus or 2019-nCoV) to aid in the diagnosis of COVID-19 is performed using the [employer] COVID-19 Direct Assay by meevl as authorized by the FDA issued Emergency Use Authorization (EUA). This assay is intended for In-vitro Diagnostic (IVD) use with nasopharyngeal swabs collected from individuals meeting the CDC criteria for testing. The assay is performed based on the instructions for use and additional guidance provided by the FDA. Testing is performed in the Microbiology Laboratory within the Department of Pathology and Laboratory Medicine at [facility], certified under the Clinical Laboratory Improvement Amendments of 1988 (CLIA), 42 U.S.C. section 263a, to perform high complexity tests. Assay performance has been verified according to clinical laboratory regulatory requirements. Test results are provided above. A result of Not Detected indicates that the viral RNA target is not present but does not preclude SARS-CoV-2 infection. False negative results may occur if a specimen is improperly collected, transported or handled; if amplification inhibitors are present; or if inadequate numbers of viral particles are present in the specimen. A result of Detected suggests a current or recent infection and the patient is presumed to be infected. Positive and negative predictive values for this test are highly dependent on disease prevalence. A result of Invalid indicates the inability to conclusively determine the presence or absence of SARS-CoV-2 RNA in the sample which can be due to a variety of factors. Recollection is recommended in the case of an invalid result. CDC COVID-19 criteria for testing on human specimens and clinical management guidance information are available at the CDC Coronavirus Disease 2019 (COVID-19) webpage under Information for Healthcare Professionals (https://www.cdc.gov/coronavirus/2019-ncov/hcp/index.html). SARS-CoV-2 Source [employer] Swab Imaging/Studies: Results for orders placed or performed during the hospital encounter of 04/11/20 XR Chest One View (Exam End: 04/11/2020 4:34 PM) Impression Endotracheal tube tip at the clavicle heads. Enteric tube in the stomach. Thank you for letting us participate in the care of this patient. For questions regarding this report, please contact the number below. Electronically signed by: Klye Goode MD, [facility] ([phone]), at 04/11/2020 4:42 PM Scheduled Medications: ??? phytonadione, vitamin K (AQUA-MEPHYTON) IV 10 mg Intravenous Daily ??? thiamine 100 mg Intravenous Daily ??? folic acid 1 mg Intravenous Daily ??? cefTRIAXone 1 g Intravenous Q24H ??? multivitamin with minerals 1 tablet Oral Daily ??? senna-docusate 2 tablet Oral BID Infusing Medications: ??? pantoprazole (PROTONIX) infusion 8 mg/hr (04/13/20 3334) ??? NORepinephrine 4 mcg/min (04/13/20 0255) ??? sodium chloride 0.9% PRN Medications: LORazepam OR LORazepam OR LORazepam, ondansetron, sodium chloride 0.9%, glucose 40% oral geLOR dextrose 10% OR glucagon (human recombinant) Assessment: 39 y.o. female with history of alcohol use, found to have gastric ulcer bleeding, now s/p clipping and empiric embolization of the GDA. Has remained relatively stable, although on small amount of levophed, suspect she is still volume depleted and will give additional liter LR to wean off pressors. Does not appear to be actively bleeding. Rise in LFTs concerning for possible intrahepatic obstruction. There is no ALP elevation or significant hepatocellular injury. May be from resorption from blood administration, however this seems less likely to explain this high of a jump. Will proceed with RUQ ultrasound w/ doppler to assess this lab abn as well as evaluate for diagnosis of cirrhosis / portal hypertension. Will transition to IV PPI and ADAT following the RUQ. Summary of Today's Plan (04/13/20): - Continue CTX x 7 days, and PPI IV - Q12H H/H - CIWA ativan - Additional 1L LR - f/u RUQ ultrasound - ADAT Neuro: -Now off sedation / analgesia ?? #Alcohol use #folate deficiency -Thiamine, folate, multivitamin -CIWA w/ ativan -BIT team when able ?? Pulm: MILTON, now extubated CV #Hemorrhagic shock - acute UGIB, stable -s/p EGD and IR embolization -additional 1L LR -See GI ? GI: #Concern for Cirrhosis / portal hypertension #Hepatomegaly -Hep A/B/C negative -q12h H/H and coags -CTX x 7 days (04/11 - 04/17) -PPI IV 40mg BID -Maintain 2x large bore IV -Maintain Type and screen -RUQ ultrasound w/ doppler ?? #Mural wall thickening -nonspecific, likely inflammatory 2/2 chronic alcohol use -monitor for signs of infection ?? Renal/FEK: MILTON, replete lytes PRN ?? Hematology: #Anemia #Folate deficiency -GI losses and likely nutritional -B12 normal -replete folate #Concern for DIC -trend coags / fibrinogen -plt >50 and Hgb >7 -Fibrinogen >100 ?? ID: MILTON ?? Endocrine: #Hyperglycemia -ISS, FSBG monitoring ?? Other prophylaxis: HOLDING DVT prophylaxis due to GIB IV PPI for GI prophylaxis Advance diet as possible HOB > 30 Mepliex to sacrum ?? Lines/Tubes/Drains: R Radial A-line ?? Consults: GI Decision Making: , Nawaf [place] Code Status: FULL ?? Disposition: ICU Jossy Alfaro MD Internal Medicine PGY-2 Blue Team Pager # Susan Grider - 04/12/2020 9:35 AM EDT Vascular and Interventional Radiology Inpatient Progress Note Admitted 04/11/2020 Procedure: Mesenteric Angiogram with GDA Embolization Post-procedure day: #0 Time of patient encounter: 9:15AM 24 Hour Events: - Patient responded to 2u pRBC with Hgb improving 10-> 12 on recheck. Hgb stable at 11 following IR intervention. Still tachycardic to low 100s, however pressor requirement has decreased from 8 -> 4 of Levo. - On minimal vent settings and minimal sedation this AM, with plans to likely extubate later today. Last Value 24 Hour Range Temperature 37 ??C (98.6 ??F) Temp: [36 ??C (96.8 ??F)-37.9 ??C (100.2 ??F)] Heart Rate (!) 101 Heart Rate: [86-167] Blood Pressure (!) 87/52 BP: (87-142)/(52-88) Respiratory Rate 17 Resp: [9-33] SpO2 98 % SpO2: [95 %-100 %] Physical Exam GEN Adult female, intubated, in NAD CV Warm and well perfused PULM Intubated ABD Right groin access site soft, no evidence of hematoma, dressing CD&I Drains/Tubes: N/A Labs: Last 3 wbc, hgb, hct plt Recent Labs 04/12/20 0810 04/12/20 0415 04/12/20 0010 WBC 16.2* 18.4* 18.0* HGB 11.5* 11.8 12.0 HCT 33.6* 34.6* 35.7 PLATELET 160 193 162 Micro: N/A Imaging: None since the time of the procedure. Assessment & Plan: 39 y.o. female with h/o alcohol use disorder transferred to [facility] in hemorrhagic shock after hematemesis POD1 s/p clipping x4 of a bleeding prepyloric ulcer with GI, subsequent Hgb drop, persistent tachycardia, requiring transfusion and pressor support now POD0 s/p mesenteric Angiogram with GDA Embolization. Patient's Hgb has remained stable at 11 following procedure. Still mildly tachycardic, however pressor requirements have decreased. - Continue to trend H/H q6hr, transfuse if necessary with Hgb goal as per ICU team (Hgb >8 from IR standpoint) - IR will continue to follow. Please page with any questions/concerns. Susan Grider MD Diagnostic and Interventional Radiology (PGY 5) Pager No.: [phone] Ronald Antony RT - 04/12/2020 8:35 AM EDT AMV Protocol: Yes SBT Protocol: Yes Vent Settings: Ventilator Mode: PS/CPAP PEEP Set: 5 FiO2: (S) 25 %(Per SpO2) PSV: 5 Ventilator Measurements: Resp: 18 Vt Spontaneous: 663 Ve: 6.4 SpO2: 94 % EtCO2: 42 mmHg Airway: 7.5 @ 23 cm at the Teeth. Skin Integrity: WDL Breath Sounds: Clear Secretions: Scant, Thin, Clear/White Assessment / Events / Plan of the Day: Received patient in PSV 5/5 35%, alert oriented and following commands with lowered sedation. Overnight SBT passed. 0825: FiO2 weaned to 25% 1055: With a positive cuff leak, extubated to 1L nasal cannula, with nurse at bedside. Patient able to phonate with diminished BBS, and no stridor noted. Patient remained stable on 1L throughout the afternoon. Plan: Continue to support patient with supplemental O2 as needed. RT Shaye Muriel Xie MD - 04/12/2020 8:10 AM EDT MICU STAFF PROGRESS NOTE Critical Care Medicine Author: Muriel Xie MD Patient seen and examined on critical care rounds. HPI Ms. Cowan is a 39 year old female who presented to an OSH with bright red hematemesis after a fewdays of coffee ground emesis. She was noted to be hypotensive , tachycardic and anemic. She received3 U PRBCs at [facility] , started on an octreotide gtt and PPI. She was brought to the ER at [facility]. She was given propofol and ketamine for sedation and rocuronium prior to intubation for airway protection. She was also given 1 g of IV ceftriaxone. Prior to presentation to the MICU, she received a total of 4 units PRBCs and 2 units FFP's. She had a recent hospital admission to [facility] on 04/09 and at that time a CT abdomen pelvis showed findings concerning for acute hepatitis versus cirrhosis and mural wall thickening from cecum to descending colon, diffusemesenteric venous engorgement concerning for portal hypertension. The patient has been an active drinker for the past 3 years, up to 20 ounces a day. The patient was admitted to the [facility] MICU where she underwent an emergent endoscopy which demonstrated a bleeding prepyloric gastric ulcer requiring 4 clips for hemostasis. Subsequently, overnight, the patient continued to have downtrending hemoglobin and increasing pressor requirements at which timeIR was consulted. She had received a total of 6 units PRBCs and 2 units FFP's. She was taken by IR and an empiric embolization of the gastroduodenal artery with a combination of Amplatzer plug, coils and Gelfoam slurry was done. The patient did well post procedure. Her Hgb stabilized. INTERVAL EVENTS: Had to be taken to IR for increasing pressor requirements. Had her GDA embolized. Received calcium gluconate for low calcium. Had 2 bloody bowel movements overnight. This AM she was awake and following commands. ROS: All other ROS are unremarkable except those mentioned above in interval events Exam: Patient Vitals for the past 8 hrs: Temp Temp src Pulse Resp SpO2 04/12/20 0600 37 ??C (98.6 ??F) Axillary (!) 101 10 97 % 04/12/20 0500 -- -- (!) 103 9 97 % 04/12/20 0410 -- -- -- 12 97 % 04/12/20 0405 -- -- -- 16 96 % 04/12/20 0400 37.2 ??C (99 ??F) Axillary (!) 103 9 97 % 04/12/20 0335 -- -- 100 16 95 % 04/12/20 0331 -- -- 100 12 95 % 04/12/20 0300 -- -- 95 12 95 % 04/12/20 0223 -- -- -- 12 96 % 04/12/20 0200 -- -- 86 16 97 % 04/12/20 0130 -- -- 87 16 97 % 04/12/20 0100 -- -- 90 16 98 % 04/12/20 0030 -- -- (!) 109 17 97 % 04/12/20 0015 -- -- 100 16 100 % GEN: Patient is intubated, she is awake and responsive. PULM: Clear breath sounds bilaterally CVS: S1 S2 normal. No murmurs ABDO: soft, NT, BS (+) EXT: warm well perfused LE bilaterally, No LE edema. 2 (+) DP palpable bilaterally. NEURO: alert, awake, following commands. Ventilator: PSV 5/5 25% FiO2 Current Drips: Levo @ 8, propofol @ 15, fentanyl @ 50 Labs/studies:Last 3 wbc, hgb, hct plt Recent Labs 04/12/20 0415 04/12/20 0010 04/11/20 194 WBC 18.4* 18.0* 16.2* HGB 11.8 12.0 10.2* HCT 34.6* 35.7 30.2* PLATELET 193 162 157 Last 3 Lytes Recent Labs 04/12/20 0245 04/11/20 1545 NA 141 140 K 3.7 4.1 CL 108* 102 CO2 22 20* BUN 22* 24* CREATININE 0.83 0.86 Last 3 LFTs Recent Labs 04/12/20 0245 04/11/20 1545 AST 69* 90* ALT 16 22 ALKPHOS 87 111* BILITOT 4.6* 4.9* BILIDIR 3.7* 3.5* Last Ca, Mg, Phos Recent Labs 04/12/20 024 CALCIUM 6.9* Last 3 Coags Recent Labs 04/12/20 0415 04/12/20 0010 04/11/201944 PT 18.5* 18.8* 18.4* INR 1.6 1.6 1.6 PTT 38* 33 36 Last 3 ProBNP, Trop, CK No results for input(s): CK, TROPONINT, PROBNP in the last 168 hours. Active problems: 1. GI bleed 2. Hemorrhagic shock 3. Acute blood loss anemia 4. Pre Pyloric ulcer 5. Alcohol use disorder 6. Possible cirrhosis 7. ? Alcoholic hepatitis 8. Leucocytosis. 9. Intubated for airway protection ASSESSMENT, MANAGEMENT, and DECISION MAKIN. NEURO A) Alcohol use. - Alert now, Wean propofol in an attempt to extubate - Start CIWA protocol for alcohol use. - Continue Thiamine and folate iv for now. Once ok for PO, will switch to oral . 2. PULM - No active issues. CXR done yesterday did not show any focal consolidation. 3. CVS A ) Hypotension likely hemorrhagic shock -Patient has been on norepinephrine. We will continue to wean to keep MAP > 65. She is status post 6 units PRBCs and 2 units FFP transfusion Her ongoing pressor requirements in part could also be secondary to her sedation. Once sedation is weaned off and she is extubated, we will try to wean her off of the pressors completely. 4. GI A) GI bleed secondary to a prepyloric gastric ulcer -Status post endoscopic clips for hemostasis followed by empiric GDA embolization by IR on 04/11/2020 Switch PPI twice daily to pantoprazole drip per GI -Continue ceftriaxone to finish a 7-day course (04/11-04/17) -Vitamin K 10 mg x 3 days -Right upper quadrant ultrasound with Doppler - Will wait 24 hours before starting clear liquids ( discussed with GI ). B) Hepatomegaly Concern for cirrhosis/portal hypertension -Patient has had some transaminitis which could be secondary to alcoholic hepatitis. Right upper quadrant ultrasound pending. Transaminases improving. No role for steroids at this time. 5. HEME A) acute blood loss anemia -Status post 6 units PRBC transfusion Trend H/H - Transfuse to keep Hgb > 7 , platelets > 50, fibrinogen > 100. 6. ID A) leucocytosis likely stress response - Will continue to monitor. Patient has been afebrile. 7.PULM A) intubated for airway protection -Patient is doing well on pressure support ventilation. Mental status doing well. Extubated today. Px : protonix gtt/SCD IS PATIENT CRITICALLY ILL ? Is there a high potential of sudden, clinically significant, or life threatening deterioration? Yes Is there a need for direct personal assessment and management to treat/prevent multiple vital organfailure/deterioration? Yes If this patient is not critically ill, I certify the patient requires continued in-patient hospitalization for NA PATIENT IS CRITICALLY ILL WITH THESE DIAGNOSES BEING MANAGED BY [facility] TEAM: GI bleed Acute blood loss anemia Hemorrhagic shock I personally performed 40 minutes of aggregate critical care time exclusive of procedures and teaching. This includes time spent during direct patient evaluation and reassessment, interpreting diagnostic tests, directing life and/or organ supporting interventions and documentation on the unit. Muriel Xie MD Kei Nunes MD - 04/12/2020 7:06 AM EDT Images from the original note were not included. DIVISION OF GASTROENTEROLOGY & HEPATOLOGY INITIAL CONSULT REQUESTING PROVIDER: Rajendra Galo MD NAME: Violet Camryn : 1980 INTERVAL: - Underwent EGD noting spurting ulcer in pylorus clipped x4 with endoscopic hemostasis. No EV/GV seen. - Persistent shock overnight, Hb trend 11 --> 10 --> 12 (s/p transfusion) --> 12 - Underwent empiric embolization of GDA by IR overnight - Fibrinogen low - HAV immune, HBV immune, HCV neg No past medical history on file. No past surgical history on file. Social History Socioeconomic History ??? Marital status: Not on file Spouse name: Not on file ??? Number [...] file Gets together: Not on file Attends yazidism service: Not on file Active member of [...] Social History Narrative ??? Not on file No family history on file. MEDICATIONS Home Meds: No medications prior to admission. Current Meds: Scheduled: ??? bolus IV fluid Intravenous Once ??? pantoprazole 40 mg Intravenous BID ??? chlorhexidine 15 mL Oral BID ??? cefTRIAXone 1 g Intravenous Q24H ??? thiamine 100 mg Oral Daily ??? folic acid 1 mg Oral Daily ??? multivitamin with minerals 1 tablet Oral Daily ??? shift total and Settings verification 1 each Intravenous 2 Times Daily - Shift Total ??? senna-docusate 2 tablet Oral BID Drips: ??? NORepinephrine 8 mcg/min (04/12/20424) ? ? octreotide (SandoSTATIN) (standard ADULT & Pedi greater than 20kg) infusion 50 mcg/hr (04/12/20 0247) ??? sodium chloride 0.9% ??? fentaNYL 50 mcg/hr (04/12/20 0600) ??? vasopressin Stopped (04/11/201814) ??? propofoL 15 mcg/kg/min (04/12/20 040) No Known Allergies OBJECTIVE Vitals: T Temp: [36 ??C (96.8 ??F)-37.9 ??C (100.2 ??F)] HR Heart Rate: [86-167] BP BP: (87-142)/(52-88) RR Resp: [9-33] SpO2 SpO2: [95 %-100 %] IO 04/11 07 - 04/12 700 In: 2894.4 [I.V.:2894.4] Out: 655 [Urine:655] Wt Last 75 kg (165 lb 5.5 oz) Admit 68.04 kg Physical Exam: GEN: Intubated, off sedation, following commands HEENT: sclerae anicteric, ETT in-situ RESP: CTAB CARDIAC: sinus tachy, normal S1/S2, no appreciable murmurs ABDOMEN: Soft, distended, non-tender, normoactive bowel sounds EXTREM: Cool, 1+ edema NEURO: RASS -4 on sedation SKIN: No jaundice Labs: CBC: Recent Labs 04/12/2041404/12/20 0010 04/11/20194404/11/20 1545 WBC 18.4* 18.0* 16.2* 15.2* HGB 11.8 12.0 10.2* 11.4* HCT 34.6* 35.7 30.2* 34.1* MCV 88.7 91.1 91.2 92.2 RDWCV 17.6* 17.3* 18.0* 17.2* COAG: Recent Labs 04/12/2041404/12/20 0010 04/11/20194404/11/20 1545 PTT 38* 33 36 30 INR 1.6 1.6 1.6 1.5 CHEM: Recent Labs 04/12/20 0245 04/11/20 1545 GLUCOSE 158 210* NA 141 140 K 3.7 4.1 CL 108* 102 CO2 22 20* BUN 22* 24* CREATININE 0.83 0.86 ALBUMIN 2.5* 3.0* CALCIUM 6.9* 7.3* HEPATIC: Recent Labs 04/12/20 0245 04/11/20 1740 04/11/20 1545 ALKPHOS 87 -- 111* ALT 16 -- 22 AST 69* -- 90* BILITOT 4.6* -- 4.9* BILIDIR 3.7* -- 3.5* LIPASE -- 15 20 IMAGING: Reports and images personally reviewed in eDH XR Chest One View Final Result Endotracheal tube tip at the clavicle heads. Enteric tube in the stomach. Thank you for letting us participate in the care of this patient. For questions regarding this report, please contact the number below. Electronically signed by: Kyle Goode MD, [facility] ([phone]), at 04/11/2020 4:42 PM Film Library- Storage Only CT Abdomen & Pelvis Final Result US Liver Elastography (Results Pending) US Abdomen Vascular Limited Hepatology Protocol (Results Pending) IR Arterial Intervention (Results Pending) ASSESSMENT & PLAN: 39/F hx EtOH use, unclear time of last drink, likely cirrhosis adm 04/11 with hematemesis in hemorrhagic shock. Initial concern for portal hypertensive bleed given EtOH history and likely cirrhosis. Found to have spurting prepyloric ulcer s/p clip x4. Persistent circulatory shock and taken for empiric GDA embolization by IR overnight. Suspect her conjugated hyperbilirubinemia is in setting of decomp cirrhosis rather than Alc Hep. Recommendations: - Maintain two large-bore IVs - CBC q8h, transfuse to maintain PLT >50, Hb>7 - INR goal <1.5, give PO vitamin K 10mg x3d for any nutritional component to coagulopathy - Check Factor VIII in setting of hypofibrinogenemia - Check stool H pylori Ag, treat if positive - Type+screen, con ABO, consent for blood - F/U LVUS, diagnostic para if ascites present - No NSAIDs - Volume resuscitation w/ LR - IV Protonix 40mg BID - OK to stop octreotide, no evidence of gastric or esophageal varices on EGD - IV ceftriaxone 1g x 7d for SBP ppx - CiWA, thiamine, folate Patient seen with Dr. Pringle. Kei Nunes MD PGY-4, Gastroenterology Associated attestation - Kye Pringle MD - 04/12/2020 5:05 PM EDT I have seen and evaluated the patient with Dr. Nunes. I have reviewed the fellow's history during the encounter and I agree with the details as written above. My physical examination confirms the above findings. The assessment and plan were formulated in discussion with me at the time of the encounter and I agree with them as documented. 14-system ROS reviewed and negative except as above Gen: nad, normal body habitus CV: rrr, no m/r/g, radial pulse 2+, no pedal edema Pulm: ctab, normal respiratory effort GI: soft without masses, nontender, nondistended, normoactive bowel sounds, no hernias Skin: warm, dry, no rashes, no induration Neurologic: intact to light touch Psych: appropriate affect, a+ox3 Kye Pringle MD, [employer] Coordinatorsecurity engineer Section of Gastroenterology and Hepatology Jossy Alfaro MD - 04/12/2020 6:35 AM EDT Critical Care Progress Note Patient Name: Violet Cowan Date of Admission: 04/11/2020 ( Hospital Day 1 day ) Service: Critical Care Medicine - Blue Team 1 #[id number] ID: Violet Cowan is a 39 y.o. female with a PMH significant for alcohol use, question of cirrhosis, who presented from [facility] via [facility] with hemorrhagic shock secondary to upper GIB, s/pEGD clipping and GDA IR embolization Interval Events: Admitted yesterday evening and underwent emergent EGD -6U pRBC total, 1U FFP (prior to transfer) -Found to have bleeding pre-pyloric gastric ulcer, requiring 4 clips for hemostasis -Subsequently continued to have downtrending hemoglobin and increasing pressor requirements, levo up to 12 -IR emergently consulted and taken for mesenteric angio with embolization: found propable extravasation in duodenal bulb, and had empiric embolization of the GDA; there was question of bleeding from apancreatic duodenal branch, however this was unable to be embolized. - Was able to be weaned off sedation and extubated this morning. - Denies any history of complicated withdrawal, seizures. Currently nauseous w/ dry heaves but not having any abdominal pain or further evidence of GIB. Physical Exam: Last value Range last 24 hrs Temperature Temp: 37 ??C (98.6 ??F) Temp: [36 ??C (96.8 ??F)-37.9 ??C (100.2 ??F)] Heart Rate Heart Rate: (!) 101 Heart Rate: [86-167] Blood Pressure BP: (!) 87/52 BP: (87-142)/(52-88) Respiratory Rate Resp: 10 Resp: [9-33] SpO2 SpO2: 97 % SpO2: [95 %-100 %] On NC General: NAD, laying in bed HEENT: dry blood in oral mucosa Lungs: CTAB, no w/r/c Heart: tachycardic, no m/r/g Abdomen: soft, NT, protuberant, no fluid wave Extremities: no peripheral edema Skin: No rashes ABG: Recent Labs 04/11/20 1753 PHART 7.38 [id number] 34* PO2ART 137* [id number] 19.9* Ins/Outs: Intake/Output Summary (Last 24 hours) at 04/12/2020 0635 Last data filed at 04/12/2020 0600 Gross per 24 hour Intake 2894.36 ml Output 655 ml Net 2239.36 ml Patient Vitals for the past 168 hrs: Weight 04/11/20 1713 75 kg (165 lb 5.5 oz) 04/11/20 1535 68 kg (150 lb) Vent settings: Oxygen Therapy O2 Device: Ventilator FiO2 (%): 35 % Labs: Recent Labs 04/12/20 0415 04/12/20 0010 04/11/20 1945 WBC 18.4* 18.0* 16.2* HGB 11.8 12.0 10.2* HCT 34.6* 35.7 30.2* PLATELET 193 162 157 Recent Labs 04/12/20 0245 04/11/20 1545 NA 141 140 K 3.7 4.1 CL 108* 102 CO2 22 20* BUN 22* 24* CREATININE 0.83 0.86 Recent Labs 04/12/20 0245 04/11/20 1545 AST 69* 90* ALT 16 22 ALKPHOS 87 111* BILITOT 4.6* 4.9* BILIDIR 3.7* 3.5* Recent Labs 04/12/20 0245 04/11/20 1545 CALCIUM 6.9* 7.3* Recent Labs 04/12/20 0415 04/12/20 0010 04/11/20 1945 INR 1.6 1.6 1.6 PT 18.5* 18.8* 18.4* PTT 38* 33 36 No results for input(s): CK, TROPONINT in the last 168 hours. Microbiology: Microbiology Results (Last 30 days) Procedure Component Value Units Date/Time COVID-19 PCR [[id number]] Collected: 04/11/20 1633 Lab Status: Final result Specimen: Nasopharyngeal Swab Updated: 04/11/20 1859 Rapid SARS-CoV-2 RNA Not Detected Comment: This result should be interpreted in combination with the clinical observations, patient history and epidemiological information. For testing of asymptomatic individuals, assay performance characteristics and clinical utility have not been evaluated. Testing for SARS-CoV-2 (Severe acute respiratory syndrome coronavirus 2, formerly known as 2019 novel coronavirus or 2019-nCoV) to aid in the diagnosis of COVID-19 is performed using the Simplexa COVID-19 Direct Assay by meevl as authorized by the FDA issued Emergency Use Authorization (EUA). This assay is intended for In-vitro Diagnostic (IVD) use with nasopharyngeal swabs collected from individuals meeting the CDC criteria for testing. The assay is performed based on the instructions for use and additional guidance provided by the FDA. Testing is performed in the Microbiology Laboratory within the Department of Pathology and Laboratory Medicine at [facility], certified under the Clinical Laboratory Improvement Amendments of 1988 (CLIA), 42 U.S.C. section 263a, to perform high complexity tests. Assay performance has been verified according to clinical laboratory regulatory requirements. Test results are provided above. A result of Not Detected indicates that the viral RNA target is not present but does not preclude SARS-CoV-2 infection. False negative results may occur if a specimen is improperly collected, transported or handled; if amplification inhibitors are present; or if inadequate numbers of viral particles are present in the specimen. A result of Detected suggests a current or recent infection and the patient is presumed to be infected. Positive and negative predictive values for this test are highly dependent on disease prevalence. A result of Invalid indicates the inability to conclusively determine the presence or absence of SARS-CoV-2 RNA in the sample which can be due to a variety of factors. Recollection is recommended in the case of an invalid result. CDC COVID-19 criteria for testing on human specimens and clinical management guidance information are available at the CDC Coronavirus Disease 2019 (COVID-19) webpage under Information for Healthcare Professionals (https://www.cdc.gov/coronavirus/2019-ncov/hcp/index.html). SARS-CoV-2 Source [employer] Swab Imaging/Studies: Results for orders placed or performed during the hospital encounter of 04/11/20 XR Chest One View (Exam End: 04/11/2020 4:34 PM) Impression Endotracheal tube tip at the clavicle heads. Enteric tube in the stomach. Thank you for letting us participate in the care of this patient. For questions regarding this report, please contact the number below. Electronically signed by: Kyle Goode MD, [facility] ([phone]), at 04/11/2020 4:42 PM Scheduled Medications: ??? pantoprazole 40 mg Intravenous BID ??? chlorhexidine 15 mL Oral BID ??? cefTRIAXone 1 g Intravenous Q24H ??? thiamine 100 mg Oral Daily ??? folic acid 1 mg Oral Daily ??? multivitamin with minerals 1 tablet Oral Daily ??? shift total and Settings verification 1 each Intravenous 2 Times Daily - Shift Total ??? senna-docusate 2 tablet Oral BID ??? insulin lispro 1-4 Units Subcutaneous Q4H NITIN Infusing Medications: ??? NORepinephrine 8 mcg/min (04/12/20 0425) ? ? octreotide (SandoSTATIN) (standard ADULT & Pedi greater than 20kg) infusion 50 mcg/hr (04/12/20 0247) ??? sodium chloride 0.9% ??? fentaNYL 50 mcg/hr (04/12/20 0600) ??? vasopressin Stopped (04/11/20 1815) ??? propofoL 15 mcg/kg/min (04/12/20 0400) PRN Medications: sodium chloride 0.9%, Assess AND [COMPLETED] fentaNYL (PF) AND fentaNYL AND fentaNYL (PF) AND shift total and Settings verification, glucose 40% oral geL OR dextrose 10% OR glucagon (human recombinant) Assessment: 39 y.o. female with history of alcohol use, found to have gastric ulcer bleeding, now s/p clipping and empiric embolization of the GDA. Now stabilized and with stable H/Hs, however slight downtrend and will require continued close monitoring. Her fibrinogen is very low, however is above the transfusion threshold. CT findings concerningfor portal hypertension / cirrhosis, which we will elucidate with RUQ ultrasound. Given no variceal b leeding found, will stop octreotide, while continuing CTX and also PPI (to switch to ggt per GI preference). She is likely still fluid down, therefore will provide additional liter of fluids to bring down her sinus tach. If continues to remain stable without pressor requirements or signs of rebleed, will consider downgrade in next 1-2 days. At risk for alcohol withdraw however no reported history of complicated withdrawal in the past. Willplace on CIWA w/ ativan now that she is off sedation, and may escalate to phenobarb if needed. Summary of Today's Plan (04/12/20): - Continue CTX x 7 days, and PPI ggt - Q4H H/H and fibrinogen, transfuse for Hgb <7 plt <50 fibrinogen <100 - CIWA ativan - Additional 1L LR - Extubated and off pressors / sedation - Strict NPO for now Neuro: -Now off sedation / analgesia ?? #Alcohol use #folate deficiency -Thiamine, folate, multivitamin -CIWA w/ ativan -BIT team when able ?? Pulm: MILTON, now extubated CV #Hemorrhagic shock - acute UGIB, stable -s/p EGD and IR embolization -additional 1L LR -See GI ? GI: #Concern for Cirrhosis / portal hypertension #Hepatomegaly -Hep A immune, B/C negative -check HepA IgM -q4h H/H and coags -CTX x 7 days (04/11 - 04/17) -stop octreotide -PPI ggt -Maintain 2x large bore IV -Maintain Type and screen -RUQ ultrasound w/ doppler ?? #Mural wall thickening -nonspecific, likely inflammatory 2/2 chronic alcohol use -monitor for signs of infection ?? Renal/FEK: MILTON, replete lytes PRN ?? Hematology: #Anemia #Folate deficiency -GI losses and likely nutritional -B12 normal -replete folate #Concern for DIC -trend coags / fibrinogen -plt >50 and Hgb >7 -Fibrinogen >100 ?? ID: MILTON ?? Endocrine: #Hyperglycemia -ISS, FSBG monitoring ?? Other prophylaxis: HOLDING DVT prophylaxis due to GIB IV PPI for GI prophylaxis HOB > 30 Mepliex to sacrum ?? Lines/Tubes/Drains: R Radial A-line ?? Consults: GI Decision Making: , Nawaf Cowan Code Status: FULL ?? Disposition: ICU Jossy Alfaro MD Internal Medicine PGY-2 Blue Team Pager # Yolanda Keenan RN - 04/12/2020 1:43 AM EDT Angio only post procedure: Angiogram with embolization Time sheath removed: 0143 Side: RIGHT Closure device used: Mynxgrip lot # [id number] Hematoma present? no Site release time: 0157 Anticipated up time: 0557 Yolanda Keenan RN - 04/11/2020 11:23 PM EDT ANGIO NURSING DATABASE Name: VIOLET COWAN Date of : 1980 AGE: 39 y.o. [address]: [address] [address] (home) Mobile: Telephone Information: Referring Provider: Oracio Long REASON FOR VISIT: Order Questions Answers Is the patient on anticoagulant / anitplatelet therapy ? No laterality of choice Bilateral Reason for exam and clinical history: Violet Cowan is a 39 y.o. female with PMH significant for alcohol use disorder and possible cirrhosis who presented to the ED for GI bleed with hematemesis and bloody stools. Now s/p EGD with 4 clips placed on a pre-pyloric bleeding ulcer. Is the patient ? Unknown Plan Planned procedure: Angiography with possible embolization (04/11/202247) Labs to be performed day of procedure: No labs (04/11/202247) Sedation: Other (See comments)(Intubated, on Propofol) (04/11/202247) Prophylactic antibiotic : None (04/11/202247) Contrast: Omnipaque (04/11/202247) Additional medications for procedure: Lidocaine (04/11/202247) Medications to discontinue (and days held): None (04/11/202247) Planned access site: TBD, likely R GLASSIE (04/11/202247) Position: Supine (04/11/202247) Cytopathology presence needed: No (04/11/202247) Consent: Pending (04/11/202247) No Known Allergies Pertinent PSH: No past surgical history on file. Date/Procedure Meds given/comments 04/11/20 angiography with multiple coils for embolization in GDA ICU patient Laboratory Results: Lab Results Component Value Date INR 1.6 04/11/2020 Lab Results Component Value Date CREATININE 0.86 04/11/2020 Lab Results Component Value Date K 4.1 04/11/2020 Lab Results Component Value Date PLATELET 157 04/11/2020 Milo Torres [employer] - 04/11/2020 8:33 PM EDT AMV Protocol: Yes SBT Protocol: Yes SBT: Passed Vent Settings:Ventilator Mode: (S) PS/CPAP PEEP Set: (S) 5 FiO2: (S) 25 % PSV: (S) 10 Ventilator Measurements: Resp: 20 Vt Spontaneous: 460 Ve: 9.2 SpO2: 98 % EtCO2: 31 mmHg Airway: 7.5 @ 23 cm at the Teeth. Skin Integrity: WDL ?? Breath Sounds: Clear Assessment / Events / Plan of the Day: Patient received orally intubated on VCV status post endoscopy now s/p clipping x4 of a bleeding prepyloric ulcer with GI. Patient awake with spontaneous RR so placed on above noted PSV settings. Removed bite block from endoscopy for patient comfort. (23:44) Patient taken down to IR on vent on VCV do to sedation needs.Tolerated well without event. Angiography, and Embolization of the Gastroduodenal Artery. (02:23) Patient back from IR. (03:31) Transition back to current setting: PS 5 PEEP +5 35% FIO2. 04/12/20 Passed SBT on CPAP +5 and 35% FIO2 Patient awake and alert and following commands. Goal of extubation when medically ready. MILO TORRES RRT Khris Nj - 04/11/2020 4:58 PM EDT Vent Settings: Ventilator Mode: VC Tidal Volume Set: 490 Resp Rate Set: 16 PEEP Set: 5 FiO2: 100 % Ventilator Measurements: Resp: 23 Vt Exhaled: PIP: MAP: Plateau Press: Ve: PEEP: SpO2: 100 % EtCO2: Airway: 7.5 @ 23 cm at the Teeth. Skin Integrity: WDL Breath Sounds: Diminished/clear Assessment / Events / Plan of the Day: Received pt in ED this afternoon and prepped for intubation. Intubated pt @ 1615 and placed on Servo-U ventilator in VCV w/ settings: FiO2: 100% PEEP: 5 RR: 16 VT: 490 ml (8 ml/kg) Transported pt to 4N MICU. Khris Nj RCP documented in this encounter H&P Notes Isha Franklin MD - 04/14/2020 1:22 PM EDT Images from the original note were not included. [facility] Medicine (#[id number]) History and Physical Patient info: Name: Violet Cowan : 1980 PCP: Julieta Odell APRN PCP phone number: [phone] Date of Admission: 04/11/2020 ( Hospital Day 3 days ) Responsible Attending:Ashli Llamas MD Active Hospital Problems Diagnosis ??? GI bleed Resolved Hospital Problems No resolved problems to display. There are no active non-hospital problems to display for this patient. ID: Violet Cowan is a 39 y.o. female w/ PMH of AUD and GI episode in the past on HD# 3 for upper GI bleed from prepyloric ulcer s/p EGD clipping and GDA IR embolization w/ RUQ US suspicious for hepatic vein thrombus. Per initial H&P by Dr. Jossy Alfaro: Patient is intubated prior to admission, history gathered via chart review. ?? Initially presented to [facility] with vomiting of bright red blood. She had been in her usual state of health until ~4 days prior and had 4 episodes of coffee ground hematemesis 2 days prior and hematemesis episode on day of presentation, as well as intermittent bloody stools. She was initially stable at presentation with Hgb of 13, however had >300cc of hematemesis and became hypotensive BP 70/50, HR 150, RR 20 and Hgb drop to 7.9. She was started on levophed, given 3pRBC, unclear amount of NS, FFP, IV PPI, octreotide ggt and transfer to [facility] via [facility], first to the ED ?? She had been admitted previously on 04/09 to [facility] and a CTAP at that time showed findings concerning for acute hepatitis v cirrhosis and mural wall thickening from cecum to descending colon, and diffuse mesenteric venous engorgement concerning for portal hypertension. Per my discussion with Mr. Cowan, Violet has been drinking heavily for the past 3 years, mostly in secret, up to 20 oz a day after the passing of her father. 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 Other medical histories include iron deficiency anemia, pi tuitary tumor now reportedly resolved. Of note, her father had alcoholic cirrhosis in his 60s. Hospital Course: Pt was initially transferred from [facility] for UGI bleed thought to be 2/2 esophageal varices. Transfused 3U PRBC at OSH, additional However, on EGD pt had no varices, but was found to have bleeding pre-pyloric ulcer. Clipped x4 w/o control of bleeding. Additional 2U PRBC given here. Pt seen byIR for GDA embolization w/ good control of bleeding. Elevated liver enzymes thought to be due to alcoholic cirrhosis. Viral hepatitis labs were negative.Previous CT abd/pelvis showed hepatomegaly w/ large geographic areas of heterogeneously low-attenuation. RUQ US showed no flow in the proximal main portal vein, suspicious for thrombosis. Multiphasic MRI pending. Today, pt feels fairly well. She c/o generalized fatigue, and an episode of lightheadedness upon getting up to use the restroom, but otherwise feels well. No vision changes, palpitations, or LOC w/ that episode. ROS: Positive findings are BOLDED. GEN: Fever, chills, fatigue HEENT: Change in vision, hearing, smell, taste. Pharyngodynia, rhinorrhea. CV: chest pain, palpitations, orthopnea, claudication PULM: dyspnea, cough, wheezing ABD: abdominal pain, dysphagia, nausea, vomiting, diarrhea, constipation, melena, hematochezia : dysuria, hematuria NEURO: anesthesia, paresthesia, asymmetric weakness, headache, photophobia, or phonophobia. SKIN: rashes, ulcers HEM: Bleeding, bruising, history of blood clots MSK: arthralgia, arthritis, myalgia, history of bone fracture, history of hip fracture in parent. PSYCH: Depression, anhedonia, suicidal ideation, homicidal ideation History reviewed. No pertinent past medical history. Past Surgical History: Procedure Laterality Date ??? IR ARTERIAL INTERVENTION 04/12/2020 IR Arterial Intervention 04/12/2020 Milo Steve, DO [facility] INTERVENTIONL RAD History reviewed. No pertinent family history. Social History Socioeconomic History ??? Marital status: Unknown Spouse name: Not on file ??? Number [...] file Gets together: Not on file Attends yazidism service: Not on file Active member of [...] Social History Narrative ??? Not on file No medications prior to admission. No Known Allergies Objective: Vitals Last value Range last 24 hrs Temperature Temp: 37.7 ??C (99.9 ??F) Temp: [37.2 ??C (99 ??F)-38 ??C (100.4 ??F)] Heart Rate Heart Rate: (!) 101 Heart Rate: [96-112] Blood Pressure BP: 92/59 BP: (92)/(59) Art Line BP BP (Arterial Line): 90/57 BP (Arterial Line): (90-135)/(44-110) MAP (NBP): [69 mmHg] Respiratory Rate Resp: 20 Resp: [16-29] SpO2 SpO2: 95 % SpO2: [88 %-100 %] Oxygen Delivery Oxygen Therapy O2 Device: None (Room air) O2 Flow Rate (L/min): 2 L/min FiO2 (%): 35 % Intake/Output Summary (Last 24 hours) at 04/14/2020 1323 Last data filed at 04/14/2020 1200 Gross per 24 hour Intake 3224.67 ml Output 450 ml Net 2774.67 ml Patient Vitals for the past 168 hrs: Weight 04/14/20 0600 80.8 kg (178 lb 2.1 oz) 04/13/20 0600 78.9 kg (173 lb 15.1 oz) 04/11/20 1713 75 kg (165 lb 5.5 oz) 04/11/20 1535 68 kg (150 lb) Admit wt: 68.04 kg Physical Exam: Gen: NAD. Skin: appears jaundiced, no rash HEENT:NC/AT. Non-injected. oropharynx nonerythematous. No exudates. Poor dentition CV: RRR. Normal S1 and S2. No M/R/G. Pulm: clear to ascultation bilaterally in the posterior lung schuster. Abd: Soft, nondistended, mild epigastric tenderness to deep palpation Ext: no edema, clubbing, or cyanosis. Neuro: alert and appropriate. Non-focal. Grossly intact. Psych: cooperative. Lines/Tubes/Drains Percutaneous Central Line - Triple Lumen 04/13/20 internal jugular vein, right (Active) Indication/Daily Review of Necessity Medications known to cause phlebitis (vasopressors, concentrated electrolytes, TPN, chemotherapy) 04/14/20799 Site Preparation/Maintenance dressing: dry and intact 04/14/20 1200 Securement sutures, secured with 04/14/20799 Distal Patency/Maintenance flushed without difficulty;blood return, able to obtain;alcohol impregnated cap applied 04/14/20799 Medial Patency/Maintenance flushed without difficulty;blood return, able to obtain;infusing Proximal Patency/Maintenance flushed without difficulty;blood return, able to obtain;alcohol impregnated cap applied 04/14/20799 Phlebitis 0-->no symptoms 04/14/201199 Infiltration 0-->no symptoms 04/14/201199 Site Signs/Symptoms no redness;no swelling;no pain;no warmth;no palpable cord;no streak formation;nodrainage 04/14/20799 Number of days: 1 Peripheral IV Line - Single Lumen 04/12/20 1722 cephalic vein (lateral side of arm), left 18 gauge;1in length;3/4 in length (Active) Indication/Daily Review of Necessity fluid therapy intermittent 04/14/20799 Site Preparation/Maintenance dressing: dry and intact 04/14/20 1200 Securement catheter stabilization device, secured with 04/14/20799 Patency/Maintenance flushed without difficulty;blood return, able to obtain;alcohol impregnated cap applied 04/14/20799 Dressing change due 04/19/20 04/12/20 1722 Phlebitis 0-->no symptoms 04/14/20 1200 Infiltration 0-->no symptoms 04/14/201199 Site Signs/Symptoms no redness;no swelling;no pain;no warmth;no palpable cord;no streak formation;nodrainage 04/14/20 08 Number of days: 1 Peripheral IV Line - Single Lumen 04/13/20 1845 cephalic vein (lateral side of arm), right 20 gauge;1 in length;3/4 in length (Active) Indication/Daily Review of Necessity fluid therapy intermittent 04/14/20 08 Site Preparation/Maintenance dressing: dry and intact 04/14/201199 Securement catheter stabilization device, secured with 04/14/20799 Patency/Maintenance flushed without difficulty;blood return, able to obtain;alcohol impregnated cap applied 04/14/20799 Phlebitis 0-->no symptoms 04/14/201199 Infiltration 0-->no symptoms 04/14/201199 Site Signs/Symptoms no redness;no swelling;no pain;no warmth;no palpable cord;no streak formation;nodrainage 04/14/20799 Number of days: 0 Arterial Line 04/11/201999 (Active) Dressing dressing dry and intact 04/14/201199 Arterial Catheter Securement secured with sterile tape strips 04/14/20799 Lumen Patency/Care flushed without difficulty;blood return present;alcohol impregnated cap applied 04/14/20799 Phlebitis 0-->no symptoms 04/14/20 1200 Infiltration 0-->no symptoms 04/14/20 1200 Waveform normal 04/14/201199 Site Signs/Symptoms no redness;no swelling;no warmth;no palpable cord;no pain;no streak formation;nodrainage 04/14/20799 Pressure Catheter Interventions line leveled/zeroed;system flushed 04/14/20 08 Daily Review Of Necessity completed 04/14/20 08 Number of days: 2 Medications: ??? folic acid 1 mg Oral Daily ### ??? thiamine 100 mg Oral Daily ### ??? pantoprazole 40 mg Intravenous BID ### ??? phytonadione (vitamin K1) 10 mg Oral Daily ### ??? cefTRIAXone 1 g Intravenous Q24H ### ??? multivitamin with minerals 1 tablet Oral Daily ### ??? senna-docusate 2 tablet Oral BID ### LORazepam OR LORazepam OR LORazepam, ondansetron, sodium chloride 0.9%, glucose 40% oral geLOR dextrose 10% OR glucagon (human recombinant) ??? sodium chloride 0.9% Labs: CBC: Recent Labs 04/14/20 0811 04/13/20200904/13/20 0555 04/11/20 1545 WBC 7.9 11.5* 10.7* < > 15.2* HGB 9.7* 10.7* 10.6* < > 11.4* HCT 28.4* 32.0* 31.3* < > 34.1* PLATELET 121* 141* 114* < > 221 221 NEUTROABS -- -- -- -- 12.70* < > = values in this interval not displayed. Chemistry: Recent Labs 04/14/20 0804/14/20 0120 04/13/20 0040 04/12/20 0245 NA -- 141 142 141 K 3.3* 3.2* 3.5 3.7 CL -- 107 108* 108* CO2 -- 26 25 22 BUN -- 14 18 22* CREATININE -- 0.63* 0.59* 0.83 GLUCOSE -- 95 114 158 ANIONGAP -- 8 9 11 Recent Labs 04/14/20 01204/13/20 0040 04/12/20 0245 CALCIUM 7.4* 7.3* 6.9* LFT's: Recent Labs 04/14/20 01204/13/20 0040 04/12/20 0245 BILITOT 7.7* 6.9* 4.6* BILIDIR 7.2* 5.8* 3.7* ALBUMIN 2.2* 2.4* 2.5* ALKPHOS 84 80 87 ALT 20 18 16 AST 90* 70* 69* Coags: Recent Labs 04/14/20 0120 04/13/20 0555 04/13/20 0040 04/12/20 1805 04/12/20 1310 04/12/20 0415 04/12/20 0010 04/11/20 1945 04/11/20 1545 PT -- -- 14.7* -- -- -- 18.5* 18.8* 18.4* 17.6* INR -- -- 1.3 -- -- -- 1.6 1.6 1.6 1.5 PTT -- -- 37 -- -- -- 38* 33 36 30 FIBRINOGEN 178* 164* 159* 131* 131* < > 128* 128* 136* 137* < > = values in this interval not displayed. Cardiac enzymes: No results for input(s): TROPONINT, CK, PROBNP in the last 7068 hours. Endocrine: No results for input(s): TSH, CORTISOL in the last 7068 hours. Invalid input(s): [id number] No results for input(s): HA1C in the last 7068 hours. Heme: No results for input(s): LDH, HAPTOGLOBIN, URICACID in the last 168 hours. ABG: ABG (Arterial Blood Gas) No results found for: PHART, PO2ART, [id number], [id number] Microbiology: Pertinent radiology/diagnostic studies: Results for orders placed or performed during the hospital encounter of 04/11/20 XR Chest One View (Exam End: 04/11/2020 4:34 PM) Impression Endotracheal tube tip at the clavicle heads. Enteric tube in the stomach. Thank you for letting us participate in the care of this patient. For questions regarding this report, please contact the number below. Electronically signed by: Kyle Goode MD, [facility] ([phone]), at 04/11/2020 4:42 PM US Abdomen Vascular Limited Hepatology Protocol (Exam End: 04/13/2020 11:26 AM) Impression 1. No flow detected in the proximal [...] 04/13/2020 at 12:30 pm. Lulú Sahu, [employer] Electronically Signed Final Report 04/13/2020 12:40 pm Request For 2nd Read CT Abdomen & Pelvis (Exam End: 04/12/2020 8:17 PM) Impression 1. Hepatomegaly with large geographic areas of [...] contact the number below. Electronically signed by: Lulú Sahu MD, [facility] ([phone]), at 04/13/2020 8:55 AM XR Chest One View (Exam End: 04/13/2020 11:54 PM) Impression FINDINGS/IMPRESSION: RIGHT central catheter tip projects over the mid SVC. Pulmonary edema. Possible small pleural effusions and/or bibasilar atelectasis. No pneumothorax seen. Prominent cardiomediastinal silhouette, nonspecific given technique/positioning. Thank you for letting us participate in the care of this patient. For questions regarding this report, please contact the number below. Electronically signed by: Corby Godoy MD, [facility] ([phone]), at 04/13/2020 11:58 PM ASSESSMENT/PLAN: Violet Cowan is a 39 y.o. female w/ PMH of AUD on HD# 3 for upper GI bleeding from prepyloric ulcer s/p clipping x4 and IR embolization of GDA. Hemodynamically stable since IR embolization. Hgb 9.7 today, decr from 10.7 yesterday, but asymptomatic. Pt received 3U PRBC at OSH and additional 2U PRBC here. Elevated liver enzymes thought to be due to alcoholic cirrhosis. Pt reportedly drinks approx 20oz EtOH daily since the of her father 3 years ago. HAV, HBV, and HCV studies unremarkable. Previous CT abd/pelvis showed hepatomegaly w/ large geographic areas of heterogeneously low-attenuation. RUQ US showed no flow in the proximal main portal vein, suspicious for thrombosis. Multiphasic MRI pending. On further discussion w/ pt, hx of miscarriage x2. Will f/u lupus anticoagulant panel, dRVVT, silica clotting time. \ No withdrawal symptoms at this time. No hx of complicated w/d, DT's, seizure. Pt has been in the hospital for 72 hours. Will d/c CIWA. #Prepyloric Bleeding Ulcer #Anemia - GI and IR consulted - S/p clips x4, GDA embolization - s/p 5 total units PRBC - ceftriaxone for SBP ppx (EOT 04/18) - IV PPI bid until 04/15, then transition to oral PPI bid - f/u stool H. pylori Ag w/ GI - daily CBC - avoid NSAIDs #Alcohol Use Disorder #Elevated LFT's #Poor portal vein perfusion - thiamine, folate supplement - BIT consult - multiphasic liver MRI - lupus anticoagulant labs - Chronic liver disease eval: - HIV, ceruloplasmin, OXANA, ASMA, AMA, Ig levels, LKM, TTG, A1AT, iron studies #L Breast Nodule - f/u outpt?? #Routine PPX -DVT: deferred - GI: PPI for GI bleed Summary of Glc management: Diet: full liquid, advance as tolerated Consults: GI, IR, BIT Lines/Access: arterial line, PIV x2 CODE Status: full code Isha Franklin MD, PGY-1 04/14/2020 [facility] Medicine # [id number] Associated attestation - Karina Breaux MD - 04/14/2020 7:43 PM EDT Attending Staff Admission Documentation I have examined the patient myself on 04/14/2020 and reviewed all labs and studies personally. Please see Dr. Franklin's documentation for details of the patient history of presentation and data. I have discussed, reviewed and agree with the documented history with ROS, physical findings, labs/studies, assessment and plan of care. Violet is a 39 y/o with alcohol use disorder, likely cirrhosis (INR 1.3, albumin 2.2) admitted with UGIB/hemorrhagic shock with prepyloric ulcer s/p clipping and GDA embolization. Completing serologic cirrhosis and 72hr IV PPI and 7d abx for SBP prophylaxis per GI. Now with stable Hgb and stable for transfer to floor. Rajendra Galo MD - 04/11/2020 6:06 PM EDT MICU STAFF ADMISSION NOTE Critical Care Medicine Author: RAJENDRA GALO HPI: Patient seen and examined on admission to the ICU. Violet Cowan is a 39 y.o. female with known alcohol use disorder now admitted with massive upper GI bleed and hemorrhagic shock. Presented to [facility] today with bright red hematemesis after a few days of coffee ground emesis. She was hypotensive, tachycardic and anemic. She was transfused with 3U pRBCs, given a PPI, started on octreotide, started on norepinephrine and transferred to [facility]. On arrival to the ED, she was intubated for airway protection and given ceftriaxone as well as one additional pRBC. She was transferred to the ICU where her norepinephrine was weaned off. Active problems: ?? Acute upper GI bleed ?? Hemorrhagic shock ?? Possible cirrhosis on previous CT ?? Alcohol use disorder ?? Elevated LFTs, probable alcoholic hepatitis Exam: Last value Range last 24 hrs Temperature Temp: 37.9 ??C (100.2 ??F) Temp: [37.9 ??C (100.2 ??F)] Heart Rate Heart Rate: (!) 162 Heart Rate: [136-167] Blood Pressure BP: 131/74 BP: (101-142)/(55-88) Respiratory Rate Resp: 16 Resp: [16-33] SpO2 SpO2: 99 % SpO2: [96 %-100 %] Art BP BP (Arterial Line): 168/99 BP (Arterial Line): (168)/(99) Ventilator: VC 16 x 490 40% 5 Drips: Norepinephrine - off Propofol 30 Fentanyl 50 Intubated and sedated ETT in place NG tube draining bright red serosanguinous fluid Lungs clear bilaterally Heart regular, tachycardic, hyperdynamic precordium Abdomen soft, non-tender No significant extremity edema Outside hospital labs and studies: Hg 7.9 (baseline 13) CT 04/09 at [facility] - hepatomegaly, marked diffuse mesenteric venous engorgement, trace fluid adjacent to the proximal duodenum and pancreatic head. [facility] labs and studies: WBC 16.2 Hg 10.2 plt 157 Na 140 K 4.1 Cl 102 CO2 20 BUN 24 Creat 0.86 Lipase 15 AST 90 ALT 22 TB 4.9 DB 3.5 Alk phos 111 INR 1.5 Fibrinogen 137 Lactate 3.0 Ammonia 82 ETOH negative COVID negative ASSESSMENT, MANAGEMENT, and DECISION [id number] y/o woman with no known diagnosis of cirrhosis but abnormal LFTs and a borderline elevated INR now presenting with acute massive GI bleed and hemorrhagic shock. She has been stabilized with blood and fluid administration, and is scheduled to undergo emergent EGD. She has weaned off pressors and hastwo large peripheral IVs. Her LFT abnormalities may be consistent with alcoholic hepatitis or decompensated cirrhosis. Plan: Continue propofol and fentanyl Norepinephrine as needed Blood and fluid resuscitation for shock EGD now PPI IV Octreotide and ceftriaxone for now Vitamin K Trend LFTs, no indication for steroids Will need to monitor for signs of ETOH withdrawal IS PATIENT CRITICALLY ILL ? Is there a high potential of sudden, clinically significant, or life threatening deterioration? Yes Is there a need for direct personal assessment and management to treat/prevent multiple vital organfailure/deterioration? Yes If this patient is not critically ill, I certify the patient requires in-patient hospitalization for[] PATIENT IS CRITICALLY ILL WITH THESE DIAGNOSES BEING MANAGED BY [facility] TEAM: Active Hemorrhage Gastrointestinal Anemia Acute blood loss Hypotension Arterial and With Shock Hypovolemic/Hemorrhagic Intubated for airway protection secondary to massive GI bleeding Shock Hypovolemic/Hemorrhagic I personally performed 40 minutes of aggregate critical care time exclusive of procedures and teaching. This includes time spent during direct patient evaluation and reassessment, interpreting diagnostic tests, directing life and/or organ supporting interventions and documentation on the unit. RAJENDRA GALO Jossy Alfaro MD - 04/11/2020 4:13 PM EDT Images from the original note were not included. Critical Care Admission Note Violet Cowan is a 39 y.o. female with a PMH significant for alcohol use, question of cirrhosis, who presented from [facility] via [facility] with hemorrhagic shock secondary to acute UGIB. HPI: Patient is intubated prior to admission, history gathered via chart review. Initially presented to [facility] with vomiting of bright red blood. She had been in her usual state of health until ~4 days prior and had 4 episodes of coffee ground hematemesis 2 days prior and hematemesis episode on day of presentation, as well as intermittent bloody stools. She had complaintsof dizziness and nausea, but denied any CP/SOB/abd pain. Reportedly she has a history of GIB bleeding in the past without associated abdominal pain. She was initially stable at presentation with Hgb of13, however had >300cc of hematemesis and became hypotensive BP 70/50, HR 150, RR 20 and Hgb dropto 7.9. She was started on levophed, given 3pRBC, unclear amount of NS, FFP, IV PPI, octreotide ggt and transfer to [facility] via [facility], first to the ED ?? In ED, patient given propofol and ketamine for sedation and maximo given for paralysis prior to intubation for airway protection. She was given 1g CTX. Prior to intbuation, she denied any Steven, vision changes, neck pain, CP, SOB, abd pain, or swelling to ED providers. In total she received 4U pRBC, and 2U FFP. She had been admitted previously on 04/09 to [facility] and a CTAP at that time showed findings concerning for acute hepatitis v cirrhosis and mural wall thickening from cecum to descending colon, and diffuse mesenteric venous engorgement concerning for portal hypertension (see full read below). Per my discussion with Mr. Cowan, Violet has been drinking heavily for the past 3 years, mostly in secret, up to 20 oz a day after the passing of her father. 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 Other medical histories include iron deficiency anemia, pi tuitary tumor now reportedly resolved. Of note, her father had alcoholic cirrhosis in his 60s. ROS: Unable to obtain No family history on file. Unable to obtain Social History Social History Narrative Not on file Unable to obtain Outpatient medications: No current facility-administered medications on file prior to encounter. No current outpatient medications on file prior to encounter. No Known Allergies Last value Range last 24 hrs Temperature Temp: 37.9 ??C (100.2 ??F) Temp: [37.9 ??C (100.2 ??F)] Heart Rate Heart Rate: (!) 143 Heart Rate: [143] Blood Pressure BP: 101/59 BP: (101)/(59) Respiratory Rate Resp: (!) 33 Resp: [33] SpO2 SpO2: 96 % SpO2: [96 %] Art BP BP (Arterial Line): -- Ventilator Settings: VC TV 490 (8cc/kg), FiO2 41, PEEP 5, RR 16 (breathing to 19) Physical Exam: General: intubated and sedated HEENT: pupils reactive to light chris Neuro: sedated, not arousable Pulmonary: CTAB Cardiovascular: tachycardic, no murmurs, hyperdynamic on POCUS Abdomen: soft, hypoactive BS, no ascites on POCUS : bhatti in place Extremities: warm distal extremities, pulses palpable chris U/LE, trace LE edema Skin: no rashes Labs: Last 3 wbc, hgb, hct plt Recent Labs 04/11/20 1545 WBC 15.2* HGB 11.4* HCT 34.1* PLATELET 221 221 Last 3 Lytes Recent Labs 04/11/20 1545 NA 140 K 4.1 CL 102 CO2 20* BUN 24* CREATININE 0.86 Last 3 LFTs Recent Labs 04/11/20 1545 AST 90* ALT 22 ALKPHOS 111* BILITOT 4.9* BILIDIR 3.5* Last Ca, Mg, Phos Recent Labs 04/11/20 1545 CALCIUM 7.3* Last 3 Coags Recent Labs 04/11/20 1545 PT 17.6* INR 1.5 PTT 30 Microbiology: BCx pending ECG: pending Imaging: CTAP w contrast 04/09/20 [facility] EGD pending Assessment: Violet Cowan is a 39 y.o. female with a PMH significant for alcohol use, question of cirrhosis, who presented from [facility] via [facility] with hemorrhagic shock secondary to acute UGIB. Acute hemorrhagic shock from UGIB, willl require emergent EGD. Gastroenterology is aware and prepping to proceed CLOVER. Patient currently not requiring any pressors but IVC appears collapsible and in sinus tachycardia. Will give additional fluids pending EGD interventions. Given alcohol history and CT findings suspicious for portal HTN, concern for acute variceal bleeding. With her level of alcohol use, also concern for PUD/mucosal erosion as source of bleed. Although noformal diagnosis of cirrhosis in available records, we will obtain further records from [facility]. Underlying etiology if cirrhotic likely alcoholic, however should rule out infectious causes for hepatitis / hepatic failure. Plan: Neuro: #Analgesia / Sedation -Prop and fentanyl -Daily SAT #Alcohol use -Thiamine, folate, multivitamin -currently on sedation, CIWA protocol when off sedation -BIT team when able Pulm: #intubated for airway protection -Daily ABG and SBT CV #Hemorrhagic shock - acute UGIB concerning for variceal bleeding -Emergent EGD -additional 1L LR -see GI below -Consider central access if further need for pressors -EKG GI: #Concern for Cirrhosis / portal hypertension #Hepatomegaly -Hepatitides work-up -CTX x 5 days -Octreotide ggt x48 hrs -IV PPI BID -Maintain 2x large bore IV -Check lipase / ammonia level -Type and screen -RUQ ultrasound w/ doppler and elastography #Mural wall thickening -consider inflammatory / infectious work-up after EGD Renal/FEK: MILTON, replete lytes PRN Hematology: #Anemia -GI losses and likely nutritional -f/u folate and B12 #Concern for DIC -trend coags / fibrinogen -plt >20 and Hgb >7 -Fibrinogen >100 ID: MILTON Endocrine: #Hyperglycemia -ISS Other prophylaxis: HOLDING DVT prophylaxis due to GIB IV PPI for GI prophylaxis HOB > 30 Chlorhexidine mouth care Mepliex to sacrum Lines/Tubes/Drains: R Radial A-line Consults: GI Decision Making: Code Status: FULL Disposition: ICU Jossy Alfaro MD April 11, 2020 Critical Care Blue Team (pager [phone]) documented in this encounter ED Notes Oracio Li MD - 04/11/2020 4:00 PM EDT ED PROVIDER NOTE Patient: Violet Cowan Age (): 39 y.o. (1980) SUBJECTIVE CC: Chief Complaint Patient presents with ??? Emesis BRB x 2 days HPI: Violet Cowan is a 39 y.o. female with PMH significant for alcohol use disorder who presented to the ED for GI bleed. Patient states she was in her usual state of health until approximately 4 days ago when she developed nausea and multiple episodes of bloody vomiting. She is also been experiencing intermittent bloody stool. She presented to an outside hospital where she was found to be hypotensive. There she was administered packed red blood cells, FFP, saline, octreotide, PPI, and norepinephrine for blood pressure.She was transferred to [facility] for further treatment management and evaluation by GI. At the time of this interview, patient denies pain. No headache, vision changes, neck pain, chest pain, shortness of breath, abdominal pain, or pain or swelling in the legs. She has never been intubated before. Hx: PMH, PSH, SH, and FH reviewed. No pertinent changes or recent events. ROS: A 10 point review of systems was performed and was negative aside from pertinent positives listed inHPI. OBJECTIVE VS: BP (!) 87/52 Pulse 100 Temp 36.4 ??C (97.5 ??F) (Axillary) Resp 16 Wt 75 kg (165 lb 5.5 oz) SpO2 100% PE: General: This is a well-nourished, well-developed female who appears her stated age. Skin: Color and turgor appropriate. Head: Atraumatic and normocephalic. Neck: Symmetrical with midline trachea. Eyes: Visual acuity grossly intact. Sclera anicteric. Ears: Hearing grossly intact to normal conversation. Nose: NG tube in place. Chest/Pulmonary: No respiratory distress. Lungs clear to auscultation. Cardiovascular: Warm extremities. Tachycardia Abdomen: Non-tender to palpation in all quadrants. No rebound or guarding. Musculoskeletal: Normal tone. Musculature and extremities without deformity. Neurological: Attention, concentration, language, and fund of knowledge are within expected range. Speech is fluent with normal content. Psychiatric: Patient cooperative with appropriate behavior, thought content, and affect. ED Course: ED Course as of Apr 12 123TueApr 11, 2020 1622 Patient intubated without complication. - Medications and fluid administered: Medications NORepinephrine 16 mcg/mL (standard ADULT and Pedi greater than 20 kg) infusion (8 mcg/min Intravenous Rate/Dose Change 04/11/202253) pantoprazole (PROTONIX) injection 40 mg (40 mg Intravenous Given 04/11/202126) chlorhexidine (PERIDEX) 0.12 % oral solution 15 mL (15 mLs Oral Given 04/11/202126) octreotide acetate (SandoSTATIN) 500 mcg in sodium chloride 0.9% 100 mL infusion (50 mcg/hr Intravenous New Bag 04/11/201847) cefTRIAXone (ROCEPHIN) 1 g vial attach to sodium chloride 0.9% 50 mL Mini-Bag Plus (has no administration in time range) sodium chloride 0.9% infusion (has no administration in time range) thiamine (Vitamin B1) tablet 100 mg (0 mg Oral Hold 04/11/201814) folic acid (Folvite) tablet 1,000 mcg (0 mcg Oral Hold 04/11/201814) multivitamin with minerals (THERA-M) tablet 1 tablet (0 tablets Oral Hold 04/11/201814) fentaNYL (PF) 50 mcg/mL injection (25 mcg Intravenous Not Given 04/11/201951) And fentaNYL 50 mcg/mL syringe (200 mcg/hr Intravenous Rate/Dose Change 04/12/20 0020) And fentaNYL bolus from VIAL 25-100 mcg (50 mcg Intravenous Given 04/12/20 0015) And fentaNYL shift total and Settings verification (0 each Intravenous Hold 04/11/201899) senna-docusate (Pericolace) 8.6-50 mg per tablet 2 tablet (0 tablets Oral Hold 04/11/202099) vasopressin 20 units in sodium chloride 0.9% 100 mL infusion (0 Units/min Intravenous Hold 04/11/201814) glucose (GLUTOSE) 40% oral geL (has no administration in time range) Or dextrose 10% infusion (has no administration in time range) Or glucagon (human recombinant) injection SolR 1 mg (has no administration in time range) insulin lispro (HumaLOG) VIAL injection 1-4 Units (1 Units Subcutaneous Not Given 04/11/201999) propofoL (Diprivan) infusion (50 mcg/kg/min ?? 68 kg Intravenous Rate/Dose Change 04/12/209) cefTRIAXone (ROCEPHIN) 1 g vial attach to sodium chloride 0.9% 50 mL Mini-Bag Plus (0 g Intravenous Stopped 04/11/20 164) ketamine (KETALAR) injection 68 mg (75 mg Intravenous Given 04/11/20 161) lactated Ringers 1,000 mL IV bolus ( Intravenous New Bag 04/11/202114) - I have reviewed the labs, which are significant for: Elevated bilirubin, leukocytosis, anion gap acidosis, elevated lactate Recent Results (from the past 24 hour(s)) BLOOD GAS 2 VENOUS Result Value Ref Range pH Rosendo 7.37 7.32 - 7.42 pCO2 Rosendo 42 41 - 51 mmHg pO2 Rosendo 19 (L) 25 - 40 mmHg HCO3 Rosendo 23.5 mmol/L BE Rosendo -1.9 mmol/L Hgb Blood Gas 12.8 11.7 - 15.5 gm/dL O2HB Rosendo 33.0 % COHB Rosendo 0.2 % METHB Rosendo 0.9 <=1.5 % Na Whole Blood 140 135 - 145 mmol/L K Whole Blood 4.7 3.5 - 5.0 mmol/L ICa Whole Blood 0.89 (CRIT) 1.15 - 1.33 mmol/L CL Whole Blood 104 98 - 107 mmol/L Gluc Whole Bld 222 (H) 65 - 199 mg/dL Lactate WB 4.1 (CRIT) 0.5 - 2.2 mmol/L BGas Source Venous Basic Metabolic Panel (non-fasting) Result Value Ref Range Glucose Lvl 210 (H) 65 - 199 mg/dL BUN 24 (H) 8 - 18 mg/dL Creatinine 0.86 0.70 - 1.20 mg/dL Sodium 140 135 - 145 mmol/L Potassium 4.1 3.5 - 5.0 mmol/L Chloride 102 98 - 107 mmol/L CO2 20 (L) 22 - 31 mmol/L Anion Gap 18 (H) 5 - 15 mmol/L Calcium 7.3 (L) 8.5 - 10.5 mg/dL eGFR 84 >=60 mL/min/1.73 m?? eGFR 97 >=60 mL/min/1.73 m?? Hepatic Function Panel Result Value Ref Range Total Protein 5.8 (L) 6.1 - 8.0 gm/dL Albumin 3.0 (L) 3.2 - 5.2 gm/dL AST 90 (H) 0 - 30 unit/L ALT 22 0 - 30 unit/L Alk Phos 111 (H) 35 - 105 unit/L Total Bilirubin 4.9 (H) 0.2 - 1.3 mg/dL Bili, Direct 3.5 (H) 0.0 - 0.3 mg/dL Lipase Result Value Ref Range Lipase 20 0 - 60 unit/L Prothrombin Time Result Value Ref Range PT 17.6 (H) 9.4 - 12.5 sec INR 1.5 APTT Result Value Ref Range PTT 30 25 - 37 sec Ethanol Level Result Value Ref Range Ethanol Lvl <100 <=99 mg/L Hemogram Result Value Ref Range WBC 15.2 (H) 4.0 - 9.5 x10(3)/mcL RBC 3.70 (L) 4.00 - 5.21 x10(6)/mcL Hemoglobin 11.4 (L) 11.7 - 15.5 gm/dL Hematocrit 34.1 (L) 35.7 - 45.8 % MCV 92.2 82.6 - 94.4 fL MCH 30.8 27.1 - 32.0 pg MCHC 33.4 31.7 - 35.0 gm/dL Platelets 221 145 - 357 x10(3)/mcL RDWSD 55.8 (H) 37.0 - 46.0 fL RDWCV 17.2 (H) 11.5 - 14.1 % MPV 11.3 7.6 - 12.9 fL nRBC % Auto 0.1 % nRBC Abs Auto 0.020 (H) 0.000 - 0.000 x10(3)/mcL Differential, Automated Result Value Ref Range Neutrophils % 83.9 % Neutr Abs (ANC) 12.70 (H) 1.70 - 6.10 x10(3)/mcL Lymphocytes % 6.1 % Lymphocytes Abs 0.9 0.9 - 3.2 x10(3)/mcL Monocytes % 8.9 % Monocyte Abs 1.4 (H) 0.3 - 0.9 x10(3)/mcL Eosinophils % 0.3 % Eosinophils Abs 0.0 0.0 - 0.4 x10(3)/mcL Basophils % 0.3 % Basophils Abs 0.0 0.0 - 0.1 x10(3)/mcL Immature Gran % 0.50 % Josey Gran Abs 0.08 (H) 0.00 - 0.04 x10(3)/mcL Platelet count Result Value Ref Range Platelets 221 145 - 357 x10(3)/mcL Plat Immature % 5.4 0.0 - 7.4 % Fibrinogen Result Value Ref Range Fibrinogen 137 (L) 200 - 393 mg/dL Gold Tube HOLD Result Value Ref Range Gold Hold Sample in lab. Red Tube Hold Result Value Ref Range Red Hold Sample in lab. ABO/Rh Typing Result Value Ref Range ABORh Type A Pos Antibody screen Result Value Ref Range Ab Screen Interp Negative Expires at 2359 on: 04/14/2020 ABORH Recheck Status Result Value Ref Range ABORH Recheck Order Order Placed ABORH Type Recheck Complete Prepare RBC Result Value Ref Range Dispensed? Yes Rapid Drug Screen, Urine (TELMA Request) Result Value Ref Range TELMA Conf Requested No TELMA Requested See Comment Rapid Drug Screen w/o Confirmation, Urine Result Value Ref Range U Barbiturates Screen None Detected None Detected U Benzodiazepines Screen None Detected None Detected U Cocaine Screen None Detected None Detected U Methadone Metabolites Screen None Detected None Detected U Opiate Screen None Detected None Detected U Cannabinoid Screen None Detected None Detected U Oxycodone Screen None Detected None Detected U Buprenorphine Screen None Detected None Detected U Fentanyl Screen None Detected None Detected U Tricyclics Screen None Detected None Detected U Ethanol Screen None Detected None Detected U Amphetamines Screen None Detected None Detected U Adulterants Screen None Detected None Detected COVID-19 PCR Specimen: Nasopharyngeal Swab Symptoms->Surveillance Result Value Ref Range Rapid SARS-CoV-2 RNA Not Detected Not Detected SARS-CoV-2 Source [employer] Swab POCT Glucose Result Value Ref Range POC Glucose 169 65 - 199 mg/dL Ammonia Result Value Ref Range Ammonia 82 (H) 11 - 51 mcmol/L Lipase Result Value Ref Range Lipase 15 0 - 60 unit/L Folate, serum Result Value Ref Range Folate Lvl 3.5 (L) 4.8 - 24.2 ng/mL Vitamin B12 Result Value Ref Range Vitamin B-12 678 232 - 1,245 pg/mL Hepatitis A Antibody, Total Result Value Ref Range Hepatitis A Ab Positive (A) Negative Hepatitis B Surface Antigen Result Value Ref Range HepB Surface Ag Negative Negative Hepatitis B Surface Antibody Result Value Ref Range HepB Surface Ab Quant 131.6 IU/L HepB Surface Ab Positive Hepatitis B Core Antibody, IgM Result Value Ref Range Hep B Core IgM Negative Negative Hepatitis C Antibody Result Value Ref Range Hepatitis C Ab Negative Negative BLOOD GAS 2 ARTERIAL Result Value Ref Range pH Art 7.38 7.35 - 7.45 pCO2 Art 34 (L) 35 - 45 mmHg pO2 Art 137 (H) 85 - 104 mmHg HCO3 Art 19.9 (L) 20.0 - 26.0 mmol/L BE Art -5.2 (L) -3.0 - 3.0 mmol/L Hgb Blood Gas 12.5 11.7 - 15.5 gm/dL O2HB Art 97.1 (H) 94.0 - 97.0 % COHB Art 0.6 % METHB Art 0.7 <=1.5 % Na Whole Blood 140 135 - 145 mmol/L K Whole Blood 3.5 3.5 - 5.0 mmol/L ICa Whole Blood 0.96 (L) 1.15 - 1.33 mmol/L CL Whole Blood 108 (H) 98 - 107 mmol/L Gluc Whole Bld 181 65 - 199 mg/dL Lactate WB 3.0 (H) 0.5 - 2.2 mmol/L FIO2 Art 40 % PF Ratio Art 342 Triglyceride Result Value Ref Range Triglycerides 177 mg/dL Hemogram Result Value Ref Range WBC 16.2 (H) 4.0 - 9.5 x10(3)/mcL RBC 3.31 (L) 4.00 - 5.21 x10(6)/mcL Hemoglobin 10.2 (L) 11.7 - 15.5 gm/dL Hematocrit 30.2 (L) 35.7 - 45.8 % MCV 91.2 82.6 - 94.4 fL MCH 30.8 27.1 - 32.0 pg MCHC 33.8 31.7 - 35.0 gm/dL Platelets 157 145 - 357 x10(3)/mcL RDWSD 58.4 (H) 37.0 - 46.0 fL RDWCV 18.0 (H) 11.5 - 14.1 % MPV 11.4 7.6 - 12.9 fL nRBC % Auto 0.0 % nRBC Abs Auto 0.000 0.000 - 0.000 x10(3)/mcL Prothrombin Time Result Value Ref Range PT 18.4 (H) 9.4 - 12.5 sec INR 1.6 APTT Result Value Ref Range PTT 36 25 - 37 sec Fibrinogen Result Value Ref Range Fibrinogen 136 (L) 200 - 393 mg/dL POCT Glucose Result Value Ref Range POC Glucose 151 65 - 199 mg/dL Lactate, whole blood, send to lab ([facility] [place] [facility]) Result Value Ref Range Lactate WB 3.0 (H) 0.5 - 2.2 mmol/L Hemogram Result Value Ref Range WBC 18.0 (H) 4.0 - 9.5 x10(3)/mcL RBC 3.92 (L) 4.00 - 5.21 x10(6)/mcL Hemoglobin 12.0 11.7 - 15.5 gm/dL Hematocrit 35.7 35.7 - 45.8 % MCV 91.1 82.6 - 94.4 fL MCH 30.6 27.1 - 32.0 pg MCHC 33.6 31.7 - 35.0 gm/dL Platelets 162 145 - 357 x10(3)/mcL RDWSD 55.7 (H) 37.0 - 46.0 fL RDWCV 17.3 (H) 11.5 - 14.1 % MPV 11.1 7.6 - 12.9 fL nRBC % Auto 0.1 % nRBC Abs Auto 0.020 (H) 0.000 - 0.000 x10(3)/mcL Prothrombin Time Result Value Ref Range PT 18.8 (H) 9.4 - 12.5 sec INR 1.6 APTT Result Value Ref Range PTT 33 25 - 37 sec Fibrinogen Result Value Ref Range Fibrinogen 128 (L) 200 - 393 mg/dL - I have reviewed the imaging, which is significant for: No acute cardiopulmonary process, proper placement of the ET tube XR Chest One View Final Result Endotracheal tube tip at the clavicle heads. Enteric tube in the stomach. Thank you for letting us participate in the care of this patient. For questions regarding this report, please contact the number below. Film Library- Storage Only CT Abdomen & Pelvis Final Result US Liver Elastography (Results Pending) US Abdomen Vascular Limited Hepatology Protocol (Results Pending) IR Arterial Intervention (Results Pending) - I performed the following procedure(s): endotrachael intubation and adult medical resuscitation. ASSESSMENT & PLAN MDM: Violet Cowan is a 39 y.o. female with PMH significant for alcohol use disorder who presented to the ED for GI bleed. DDX: Upper gi bleed Patient's history of bloody emesis for the past several days is concerning for GI bleed. She reportedly also had bloody stools. She presented to an outside hospital hypotensive and for this reason was started on pressors as well as resuscitated with crystalloid and blood products. She is tachycardic but otherwise stable on arrival to the ED. Patient was intubated for airway protection and to facilitate endoscopy. Please see procedure note for details. Patient was then admitted to the ICU for furthermonitoring and work-up. Patient did receive ceftriaxone in the emergency department in addition to PPI and octreotide at outside hospital. PLAN: Admit to ICU Oracio Li MD 04/12/20 1:23 AM Oracio Li MD Resident 04/12/20 0126 Associated attestation - Christelle Morales MD - 04/13/2020 10:12 AM EDT ED ATTENDING ATTESTATION NOTE The patient was seen in conjunction with Dr. Li, the resident physician. I have independently performed the fish portions of the history and physical exam. I have reviewed the nursing notes, vital signs, and all diagnostic studies personally including labs, imaging studies and EKGs. I have discussed the details of the case with the resident and agree with the assessment and plan as described in the resident note unless noted otherwise. Brief Summary: There is a 39-year-old female with a history of alcoholism who presents as a transferfor acute unstable upper GI bleed. She was seen at an outside hospital with a 1 day history of hematemesis. She was noted to have significant hemoglobin drop as well as hypotension. At the outside hospital she was treated with PPI and octreotide as well as 4 units PRBC and 1 of FFP. She was requiring norepinephrine drip for blood pressure support. On arrival here, her norepinephrine drip was able to be down titrated from 18- 10. She was tachycardic but otherwise mentating appropriately and without acute distress. Discussed the case with both the critical care and GI services. Plan is for continued resuscitation and intubation in the emergency department and then transferred to the ICU for emergent endoscopy. The patient's initial VBG was notable for hemoglobin of 12.8, indicating appropriate correction fromher 4 units of PRBC. She did have an NG tube in place with a small to moderate amount of bloody discharge when placed to suction. She also received ceftriaxone in emergency department. She remained tachycardic but otherwise hemodynamically stable for the remainder of her short time in the ED. See separate procedure notes for complete details of her intubation. Final Assessment: upper GI bleed Did this case involve critical care? Yes CRITICAL CARE DOCUMENTATION: Is there a high potential of sudden, clinically significant, or life threatening deterioration? Yes Are there life and/or organ supporting interventions that require frequent personal assessment and manipulation or support to treat/prevent vital organ failure/deterioration? yes I personally performed 60 minutes of aggregate critical care time exclusive of procedures and teaching during this emergency department visit. This includes time spent during direct patient evaluation and reassessment, interpreting diagnostic tests, directing life and/or organ supporting interventions, and documentation. Have you asked a patient their goals of care (ie. what matters)? No Varghese Heard MD - 04/11/2020 1:36 PM EDT 39yo alcoholic, ?cirrhotic (although prior EGD/GI recollection from OSH was there were no varices) with very unstable UGIB with 300cc+ or pure blood hematemesis at OSH, Hgb from 13 now down to 7. Receiving 2-3u PRBC, NS, Octreotide gtt, protonix gtt, Levophed gtt and MAPs still 50s. [facility] to transport. Not intubated at time of this note. 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 History of alcohol use. Ms Cowan is A&Ox4, pleasant, and cooperative, reports her mood as Fine, no apparent signs or symptoms of alcohol withdrawal at this time, denies AH/VH, denies SI/HI. Ms Cowan described a history of alcohol use that began with experimental use as a teen and increased to occasional social use for most of her adult life and it wasn't until her father three years ago that she began to drink daily as a coping mechanism for grief. She reports drinking more heavily three years ago and that she has gradually slowed down and reports drinking 1-2 drinks per night prior to hospital admission. She denies any illicit drug use. She reports seeing an outpatient therapist at the [facility] for the past year. Ms Cowan reports being motivated to abstain from alcohol use with the ongoing clinical support ofoutpatient counseling. She plans to call her therapist to update her about her decision to stop drinking and schedule more frequent appointments. She denies the need for residential or IOP treatment atthis time. Additional substance use treatment and relapse prevention resources were given and placedin her discharge instructions. Assessment: Ms Cowan is a 39-year-old woman admitted with upper GI bleed from prepyloric ulcer s/p EGD clipping and GDA IR embolization w/ RUQ US suspicious for hepatic vein thrombus. History of alcohol use. Currently without apparent signs or symptoms of alcohol withdrawal, no acute safety concerns. Motivatedto abstain from alcohol use with the ongoing clinical support of outpatient counseling. She plans tocall her therapist to update her about her decision to stop drinking and schedule more frequent appointments. Interventions delivered: Motivational interviewing Resource coordination - substance use treatment Plan: 1. Patient plans to abstain from alcohol use with the ongoing clinical support of outpatient counseling. 2. Patient plans to call her therapist to update her about her decision to stop drinking and schedule more frequent appointments. Medication Assisted Treatment Plan (select yes if referral reason indicates AUD, OUD or MARITZA - other): Yes. Substance use of focus: Alcohol. Patient already on MAT? No. Was initiation offered? No.. Discharge Planning Needs: Other: None Time spent with the patient (min):30 minutes Time spent on case coordination (min): 15 minutes Plan of Care - Omaira Huynh RN - 04/15/2020 7:04 AM EDT Problem: Patient Care Overview Goal: Plan of Care Review Outcome: Ongoing (Interventions Implemented as Appropriate) 04/14/201999 Coping/Psychosocial Plan Of Care Reviewed With patient OUTCOME EVALUATION NOTE: OUTCOME SUMMARY: Pt stable, no major changes over night. 1BM overnight soft but formed and no zuhair blood, light brown color. PLAN MOVING FORWARD: L5; floor status INDIVIDUALIZED FALL PREVENTION INTERVENTIONS: Patient-specific fall risk factors per assessment: [current deficits]: none Assistance [level of assistance required for transfers and ambulation]: None Supervision [direct monitoring required during toileting and ADLs]: Frequent rounding, safety checks Surveillance [continuous indirect monitoring]: jane Plan of Care - Meg Marino RN - 04/14/2020 6:36 PM EDT OUTCOME EVALUATION NOTE: OUTCOME SUMMARY: Patient is alert/oriented and mobile. Patient weaned off of levophed at 0800, BP stable. Other VSS. Patient arterial line removed, central line removed. Patient had lupus labs and a panel sent. Left for MRI at 1753, returned at 1850. Downgraded to the floor. Will continue to monitor. PLAN MOVING FORWARD: Move to the floor. Wait for results of lupus labs INDIVIDUALIZED FALL PREVENTION INTERVENTIONS: Patient-specific fall risk factors per assessment: [current deficits]: Lines Assistance [level of assistance required for transfers and ambulation]: Stand -by Supervision [direct monitoring required during toileting and ADLs]: Stand-by Surveillance [continuous indirect monitoring]: O2, apnea Initial Assessments - Mayar Granados RN - 04/14/2020 2:09 PM EDT Office of Care Management Initial Assessment Mayra Granados RN reviewed record and discussed patient with Care Team. Source of Information: CM spoke to pt in room she is a/o able to self direct Introduced self/reviewed role; services accepted. Reason for Hospitalization: hemorrhagic shock secondary to acute UGIB Last COVID test date and time: 04/11/20 rapid covid (-) History reviewed. No pertinent past medical history. Hospitalizations Within the Past 30 Days: none in system Anticipated Length Of Stay (If known): TBD Current Decision-Making Capacity: Patient is alert and oriented and able to make decisions. Advance Care Planning:Patient does not have advanced directives. Education provided and surrogacy reviewed. Pt declined Advanced Planning Booklet and form. If AD's have not been completed Nawaf would be surrogate decision maker per [place] surrogate decision making law. Any patient receiving care at [facility] must abide by [place] law. The hierarchy for surrogate decision making is: (a) Patient???s spouse, or civil union partner or common law spouse unless there is a divorce proceeding, separation agreement, or restraining order limiting that person???s relationship with the patient. Nawaf (b) Any adult son or daughter of the patient. (c) Either parent of the patient. (d) Any adult brother or sister of the patient. (e) Any adult grandchild of the patient. (f) Any grandparent of the patient. (g) Any adult aunt, uncle, niece, or nephew of the patient. (h) A close friend of the patient. (i) The agent with financial power of trade mark attorney or a conservator appointed in accordance with RSA 464-A. (j) The guardian of the patient???s estate. Current Coping/Education/Information Needs: Coping well with hospital stay and feels updated on issues and plan. Current Functional Ability: per nurse SBA Functional Status Prior to Admission: pt states she was independent and driving. 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 Social & Family Supports/Community Resources: she stated she was not comfortable talking about this now Behavioral Health History: per pt she has severe anxiety and treats with a therapist and medication Substance Use/Abuse: Pt states She does not smoke cigarettes She does not do drugs She does drink: spirits of any kind, she again did not want to go into at this time she felt anxious. CM offered to have ALL SOURCE INTELLIGENCE ANALYST come and see her tomorrow to talk about it and possible community resources;pt agreed to this . ALL SOURCE INTELLIGENCE ANALYST notified Other Pertinent/Service Specific Information: Health/Prescription Coverage: Primary Insurance: [employer] [facility] Secondary Insurance: N/A Prescription Coverage: yes Preferred Pharmacy: [facility] Other: Primary Care Provider: Julieta Odell, [employer] [phone] Patient/Caregiver Goals of Treatment: Pt would like to return home and help with drinking Potential Needs for Transition of Care: Rehab/SNF: not at this time Home Health: tbd DME: not at this time Dialysis: not at this time Community Resources: Transportation: /mother Other: Anticipated Barriers to Discharge/Special Considerations: none at this time Assessment: Pt is 39 y/o female that is independent and can self direct. She states she drinks to much and agreed to speak to ALL SOURCE INTELLIGENCE ANALYST about it and possible resources available to her. She has an almost 4 y/o son at home and her . Plan: monitor pt for progress Review recommendations from other providers Make referrals as needed Have ALL SOURCE INTELLIGENCE ANALYST meet with pt re etoh abuse A member of the Care Management team will continue to monitor progress, follow for continuity of care and assist with transition of care planning. Mayra Granados RN Pager: [phone] Plan of Care - Omaira Huynh RN - 04/14/2020 6:11 AM EDT Problem: Patient Care Overview Goal: Plan of Care Review Outcome: Ongoing (Interventions Implemented as Appropriate) 04/13/201999 Coping/Psychosocial Plan Of Care Reviewed With patient OUTCOME EVALUATION NOTE: OUTCOME SUMMARY: Pt received AAOx4, on 50 of isabelle PIV, providers wanted to trial pt off vasopressors support bolus with IV fluid to avoid having pt to have central access placed. Pt initially tolerated being off isabelle, but needed the added supported shortly after it was turned off. [place] team then decided to place centralaccess for pressor support. Central line placement was uneventful and Levo was started at 2 and titrated to 4, and eventually back down to 2. Pt also received two unit of albumin. Pt needed 2L NC overnight while sleeping r/t desat, tolerated well. Slight cough, pt reports scratchy throat. ABD firm, non tender; active bowel sounds. UOP-pt urinated once during shift No BM Did not score on the Ativan assessment scale. PLAN MOVING FORWARD: Psych to see about ETOH, PT/OT? Continue to monitor for s/s of bleeding INDIVIDUALIZED FALL PREVENTION INTERVENTIONS: Patient-specific fall risk factors per assessment: [current deficits]: Weakness Assistance [level of assistance required for transfers and ambulation]: Standby/1 assist Supervision [direct monitoring required during toileting and ADLs]: Rounding, safety checks Surveillance [continuous indirect monitoring]: Jane Goal: Fall Prevention-Safe Patient Handling Outcome: Ongoing (Interventions Implemented as Appropriate) 04/13/20 1600 04/13/20 1800 04/13/201999 Logan Fall Risk History of Falling -- -- 0 Secondary Diagnosis -- -- 15 Ambulatory Aids -- -- 0 Intravenous Therapy/Heparin/Saline Lock -- -- 20 Gait/Transferring -- -- 10 Mental Status -- -- 0 Score -- -- 45 OTHER Logan Fall Risk -- -- High Restraint Interventions Safety Promotion/Fall Prevention -- -- -- Positioning Body Position -- -- -- Activity Activity Type -- -- -- Activity Assistance Provided -- assistance, 1 person -- Assistive Device Utilized none -- -- 04/14/20 0400 Logan Fall Risk History of Falling -- Secondary Diagnosis -- Ambulatory Aids -- Intravenous Therapy/Heparin/Saline Lock -- Gait/Transferring -- Mental Status -- Score -- OTHER Logan Fall Risk -- Restraint Interventions Safety Promotion/Fall Prevention nonskid shoes/slippers when out of bed;safety round/check completed;fall prevention program maintained;activity supervised Positioning Body Position independent Activity Activity Type activity adjusted per tolerance Activity Assistance Provided -- Assistive Device Utilized -- Goal: Infection Control Outcome: Ongoing (Interventions Implemented as Appropriate) 04/13/20 0800 04/13/201999 Safety Interventions Isolation Precautions -- standard precautions maintained Infection Prevention -- single patient room provided;rest/sleep promoted;equipment surfaces disinfected Coping Strategies Supportive Measures relaxation techniques promoted -- Goal: Discharge Needs Assessment Outcome: Ongoing (Interventions Implemented as Appropriate) 04/14/20 0550 Discharge Needs Assessment Concerns To Be Addressed adjustment to diagnosis/illness concerns;childcare concerns;mental health concerns;substance/tobacco abuse/use concerns Readmission Within The Last 30 Days no previous admission in last 30 days Plan of Care - Aishwarya Ballesteros RN - 04/13/2020 5:28 AM EDT OUTCOME EVALUATION NOTE: ?? OUTCOME SUMMARY: ?? Patient's AO X4. PERRLA. Levophed restarted for low BP/MAP, titrated to MAP goal. Q6 H/H and coags maintained, Hgb stable. She had a dark red BM last night, [facility] team aware. She was given 1L LR. She experience a wave of nausea early on in the night that resolved quickly without any treatment. Tolerated sips of clear liquid, no problem with swallowing. UOP- good amount of dark/jennifer/orange urine. Will continue to monitor.. ?? PLAN MOVING FORWARD: ?? Trend H/H Q6 Wean pressor Monitor for signs of bleeding Advance diet Downgrade when no longer requiring pressor ?? INDIVIDUALIZED FALL PREVENTION INTERVENTIONS: ?? Patient-specific fall risk factors per assessment: [current deficits]: Intubated/ sedated/ mechanically vented/ generalized body weakness/ devices/ LDAs. ?? Assistance [level of assistance required for transfers and ambulation]: 1A, mostly independent in bed ?? Supervision [direct monitoring required during toileting and ADLs]: Frequent purposeful rounding/ direct ?? Surveillance [continuous indirect monitoring]: ICU David, alarms ? CPG GOAL OUTCOME EVALUATION: Ongoing Plan of Care - Aishwarya Ballesteros RN - 04/12/2020 5:11 AM EDT Problem: Ventilation, Mechanical Invasive (Adult) Goal: Signs and Symptoms of Listed Potential Problems Will be Absent, Minimized or Managed (Ventilation, Mechanical Invasive) Signs and symptoms of listed potential problems will be absent, minimized or managed by discharge/transition of care (reference Ventilation, Mechanical Invasive (Adult) CPG). Outcome: Ongoing (Interventions Implemented as Appropriate) 04/12/20429 Ventilation, Mechanical Invasive Problems Assessed (Mechanical Ventilation, Invasive) all Problems Present (Mechanical Ventilation, Invasive) situational response OUTCOME EVALUATION NOTE: OUTCOME SUMMARY: Patient's care was assumed around 1909. She was received intubated, sedated and on mechanical ventilation. She was switched from VC to PS early on in the shift with Fio2 of 40%. Patient was sedated with Propofol and Fentanyl both titrated overnight for comfort/ RASS goal. She was awake and responded appropriately to commands on minimal to moderate sedation. PERRLA at 3mm bilaterally. Levophed still ongoing, titrated to MAP goal. She went to the IR for mesenteric angiogram and embolization. Procedurewas well tolerated. She was kept flat post procedure. Q4 H/H and coags maintained. Q4 POCT done, insulin coverage not needed. She had additional 2 units of PRBCs last night and IV Calcium gluconate forlow serum calcium (6.9). She passed SBT on minimal sedation.UOP- good amount of dark/jennifer/orange urine. Will continue to monitor.. PLAN MOVING FORWARD: Trend H/H Q4 Wean pressor Monitor for signs of bleeding INDIVIDUALIZED FALL PREVENTION INTERVENTIONS: Patient-specific fall risk factors per assessment: [current deficits]: Intubated/ sedated/ mechanically vented/ generalized body weakness/ devices/ LDAs. Assistance [level of assistance required for transfers and ambulation]: 2A Supervision [direct monitoring required during toileting and ADLs]: Frequent purposeful rounding/ direct Surveillance [continuous indirect monitoring]: ICU David, alarms CPG GOAL OUTCOME EVALUATION: Ongoing Problem: Cardiac Output Decreased (Adult) Goal: Identify Related Risk Factors and Signs and Symptoms Related risk factors and signs and symptoms are identified upon initiation of Human Response Clinical Practice Guideline (CPG) Outcome: Ongoing (Interventions Implemented as Appropriate) 04/12/20429 Cardiac Output Decreased Cardiac Output, Decreased: Related Risk Factors hypovolemic shock Signs and Symptoms (Cardiac Output Decreased) fatigue;weakness/activity intolerance;restlessness Goal: Adequate Cardiac Output/Effective Tissue Perfusion Patient will demonstrate the desired outcomes by discharge/transition of care. Outcome: Ongoing (Interventions Implemented as Appropriate) 09/12/20 0430 Cardiac Output Decreased (Adult) Adequate Cardiac Output/Effective Tissue Perfusion making progress toward outcome Problem: Gastrointestinal Bleeding (Adult) Goal: Signs and Symptoms of Listed Potential Problems Will be Absent, Minimized or Managed (Gastrointestinal Bleeding) Signs and symptoms of listed potential problems will be absent, minimized or managed by discharge/transition of care (reference Gastrointestinal Bleeding (Adult) CPG). Outcome: Ongoing (Interventions Implemented as Appropriate) 04/12/20 0430 Gastrointestinal Bleeding Problems Assessed (GI Bleeding) all Problems Present (GI Bleeding) hemorrhage;situational response;fluid imbalance Brief Op Note - Milo Steve DO - 04/12/2020 1:49 AM EDT INTERVENTIONAL RADIOLOGY BRIEF PROCEDURE NOTE Patient Name: Violet Cowan : 1980 Case Date: 04/12/2020 Operators: Attending: Mani Steve DO All Staff: Susan Grider MD Post-operative diagnosis/Indication: Gastrointestinal Hemorrhage. Hemorrhagic Shock. Pyloric Ulcer. Name of Procedure Performed: Mesenteric Angiogram with GDA Embolization Description of the procedure: ?? Right GLASSIE Access ?? Selection and Angiography of the Celiac [place] and Superior Mesenteric Artery ?? Selection, Angiography, and Embolization of the Gastroduodenal Artery. ?? Mynx Closure Device Right GLASSIE Access Findings of the procedure: ?? Conventional Celiac [place] Anatomy. ?? Possible active extravasation in duodenal bulb (motion makes this difficult to confirm). ?? Empiric Embolization of the Gastroduodenal Artery. ?? Small inferior pancreatic duodenal branch arising from SMA, attempted to be selected but unsuccessful. No active extravasation of SMA angiography. EBL: <50 mL Specimens: None Complications: No immediate Plan/Disposition: ?? To ICU ?? Lie flat for 4 hours ?? Trend Hemoglobin & Hematocrit. ?? IR to follow. FULL PROCEDURE NOTE TO FOLLOW IN IMAGE REPORT ED Procedure Note - Oracio Li MD - 04/12/2020 1:27 AM EDT Images from the original note were not included. Procedures INTUBATION PROCEDURE NOTE: Pre-Intubation Assessment and Planning: Estimated Patient Weight: 70 kg Indication for Intubation: inability to protect airway and anticipated clinical decline Difficulty Airway Assessment: Neck Mobility: normal Mallampati: I Mouth Openin or more fingers between incisors or gums Thyromental Distance: 3 fingers Thyrohyoid Distance: 2 fingers Obstruction Present: no Facial Trauma/Anatomic Barrier: no Pre-Oxygenation: nasal cannula and face mask Patient Positioning (check all that apply): head of bed at 20 degrees Description of Procedure: Method Used: Method: Oral - Video Laryngoscopy Best O2 Sat before attempting intubation: 100 Device Used: Laryngoscope Medications: Pre-treatment agents: none Induction agents: Ketamine 70 mg Paralytic agents: Rocuroniium 100 mg Topical agents: None Number of attempts: First attempt by: EM PGY 2 Successful Intubation: Yes Lowest O2 level during intubation attempts: 66 % Glottic view on final attempt: I - visualized cords Complications: None Post-Intubation Assessment: Endotracheal Tube Successfully Placed: Yes Size of tube: 7.5 mm Depth of tube: 22 cm at the teeth/gums Placement confirmed by: auscultation, end-tidal CO2 and CXR For Future Reference Patient Determined to have a Difficulty Airway: No, patient not determined to have difficult airway Additional Notes: none Associated attestation - Christelle Morales MD - 04/13/2020 11:38 AM EDT ED ATTENDING ATTESTATION NOTE I was present for and supervised the entire procedure. Consult Note - Susan Grider - 04/11/2020 10:25 PM EDT Images from the original note were not included. INTERVENTIONAL RADIOLOGY FOCUSED H&P and PRE-PROCEDURE NOTE: PCP: None Referring Provider: Oracio Long Planned Procedure: Planned procedure: Angiography with possible embolization Procedure Indication: Hemorrhagic shock, s/p clipping of bleeding pre-pyloric ulcer, persistent dropin Hgb, pressor requirement, concern for ongoing bleeding Presenting Diagnosis/ Complaint: iVolet Cowan is a 39 y.o. female with h/o alcohol use disorder who as per the note by Dr. Galo at 6:06PM on 04/11, admitted with massive upper GI bleed and hemorrhagic shock. Presented to [facility] today with bright red hematemesis after a few days of coffee ground emesis. She was hypotensive, tachycardic and anemic. She was transfused with 3U pRBCs, given a PPI, started on octreotide, started on norepinephrine and transferred to [facility]. On arrival to the ED, she was intubated for airway protection and given ceftriaxone as well as one additional pRBC. GI was consulted and EGD was performed where as per the GI fellow, there was spurting of blood seen from a prepyloric ulcer. Clipsx4 were placed and no active bleeding was seen endoscopically. No additional ulcers were identified. No esophageal or gastric varices were seen. The patient was then transferred to the MICU. Most recent labs showed Hgb drop from 12.5 -> 10.2 (at 1945 hrs on 04/11), persistent tachycardia in the low 100s (albeit improved from 140-150s at time of initial presentation) and persistent pressor requirement (currently on 6 of levo per the ICU resident). 1L crystalloid bolus given and transfusion of 2u pRBC initiated. Repeat lactate to be drawn (most recently 3 at 1753 hrs on 04/11). IR consulted for angiography given concern for ongoing hemorrhage. PMH, PSH, Medications, Outpatient Prescriptions, Allergies, Social History and Family History below are obtained as per patient's medical record. Past Medical/Surgical History: Patient Active Problem List Diagnosis Code ??? GI bleed K92.2 No past medical history on file. No past surgical history on file. Medications: No current facility-administered medications on file prior to encounter. No current outpatient medications on file prior to encounter. Allergies: Patient has no known allergies. Social History and Habits: Social History Socioeconomic History ??? Marital status: Not on file Spouse name: Not on file ??? Number [...] file Gets together: Not on file Attends yazidism service: Not on file Active member of [...] Labs: Lab Results Component Value Date WBC 16.2 (H) 04/11/2020 HCT 30.2 (L) 04/11/2020 PLATELET 157 04/11/2020 INR 1.6 04/11/2020 BUN 24 (H) 04/11/2020 CREATININE 0.86 04/11/2020 ALKPHOS 111 (H) 04/11/2020 AST 90 (H) 04/11/2020 ALBUMIN 3.0 (L) 04/11/2020 BILIDIR 3.5 (H) 04/11/2020 BILITOT 4.9 (H) 04/11/2020 ALT 22 04/11/2020 PROT 5.8 (L) 04/11/2020 K 4.1 04/11/2020 Imagin) CT Abdomen and Pelvis (04/09/20): Physical Exam: Pending (to be performed in angio the day of procedure) ASA: Pending (to be assessed in angio the day of procedure) Mallampati Class: Pending (to be assessed in angio the day of procedure) Assessment: 39 y.o. female with h/o alcohol use disorder transferred to [facility] in hemorrhagic shock after hematemesis now s/p clipping x4 of a bleeding prepyloric ulcer with GI. Patient with concern for ongoing bleeding given Hgb drop, persistent tachycardia (albeit improved from initial presentation), transfusion and pressor support requirements. IR plan for angiography with possible intervention. Plan: Plan Planned procedure: Angiography with possible embolization Labs to be performed day of procedure: No labs Sedation: Other (See comments)(Intubated, on Propofol) Prophylactic antibiotic : None Contrast: Omnipaque Additional medications for procedure: Lidocaine Medications to discontinue (and days held): None Planned access site: TBD, likely R [place] Position: Supine Cytopathology presence needed: No Consent: Pending 04/11/2020 Plan of Care - Letha Serrano RN - 04/11/2020 7:51 PM EDT OUTCOME EVALUATION NOTE: OUTCOME SUMMARY: Violet was admitted to [facility] at approximately 17:05 from [facility] ED with prior nursing report of Upper GIB, sedated and intubated with pressors. Unresponsive on arrival to unit, sedated on propofol, norepinephrine paused due to hypertension. Labs drawn, EGD performed with 1 bleeding ulcer found, interve ntion with 4 clips applied. Octreotide and fentanyl started. Vasopressin held, not needed. PLAN MOVING FORWARD: ECG, Bcx, and 2u PRBCs handed off to next shift. Monitor for signs of re-bleeding. INDIVIDUALIZED FALL PREVENTION INTERVENTIONS: Patient-specific fall risk factors per assessment: [current deficits]: AMS, Lines, Unknown mobility baseline. Assistance [level of assistance required for transfers and ambulation]: Total Assist x 2. Supervision [direct monitoring required during toileting and ADLs]: Total Assist x 2. Surveillance [continuous indirect monitoring]: ICU Continuous Monitoring. Patient-specific fall prevention interventions for sensory deficits provided, if applicable: [X] Yes CPG GOAL OUTCOME EVALUATION: ED Procedure Note - Hunter Mcclain - 04/11/2020 6:32 PM EDT Arterial Line Placement Procedure Note Indication for Procedure: Arterial line was placed for invasive blood pressure monitoring and arterial blood gases. Procedure Diagnosis: shock, Upper GIB Location of Procedure: Emergency Department. Risks and Benefits: The risks and benefits of this procedure were not reviewed and informed consent was not obtained. Time Out: informed consent and time out were not performed as procedure was performed under emergentconditions Hand Hygiene: The steel tester did perform hand hygiene prior to arterial line insertion. Procedure Prep: Sterile draping was applied. Skin was prepped with chlorhexidine. 0 ml of 1% Lidocaine was used for local anesthesia. Procedure Details: A 20 gauge, 2 inch catheter was placed in the right radial artery and secured with tape and steri-strips. Tegaderm was applied. Ultrasound was used for guidance. Guide wire was used in this procedure. The guide wire had a diameter of .018 inches. There was 1 attempt. Findings: There were no procedure complications. Blood was drawn with ease. Procedure Comments: Procedure was performed under emergent conditions therefore written informed consent was not obtained. Associated attestation - Christelle Morales MD - 04/13/2020 11:38 AM EDT ED ATTENDING ATTESTATION NOTE I was present for and supervised the fish portions of the procedure and immediate available for the entire procedure. Consult Note - Kei Nunes MD - 04/11/2020 5:53 PM EDT Images from the original note were not included. s DIVISION OF GASTROENTEROLOGY & HEPATOLOGY INITIAL CONSULT REQUESTING PROVIDER: Rajendra Galo MD NAME: Violet Cowan : 1980 HPI: 39/F hx EtOH use, unclear time of last drink, possible cirrhosis adm 04/11 with hematemesis in hemorrhagic shock. Presented to [facility] with hematemesis. Found to be in hemorrhagic shock (BP 70/40 mmHg, HR 150). Hb 7.9 (from 13). Given 4u pRBCs, FFP. Started on IV PPI, octreotide and flown to [facility]. On arrival here, afebrile (37.9 C), tachycardic (HR 140s), MAP goal 65 on 10 Levophed. Labs notable for Hb 11, INR 1.5, aPTT 30, fibrinogen 137. Continued on IV PPI, octreotide. Started on ceftriaxone. ROS: 10-system ROS negative other than that noted above No past medical history on file. No past surgical history on file. Social History Socioeconomic History ??? Marital status: Not on file Spouse name: Not on file ??? Number [...] file Gets together: Not on file Attends yazidism service: Not on file Active member of [...] Social History Narrative ??? Not on file No family history on file. MEDICATIONS Home Meds: No medications prior to admission. Current Meds: Scheduled: ??? pantoprazole 40 mg Intravenous BID ??? chlorhexidine 15 mL Oral BID ??? [START ON 04/12/2020] cefTRIAXone 1 g Intravenous Q24H ??? thiamine 100 mg Oral Daily ??? folic acid 1 mg Oral Daily ??? multivitamin with minerals 1 tablet Oral Daily ??? fentaNYL (PF) 25 mcg Intravenous Once And ??? shift total and Settings verification 1 each Intravenous 2 Times Daily - Shift Total ??? senna-docusate 2 tablet Oral BID ??? bolus IV fluid Intravenous Once ??? insulin lispro 1-4 Units Subcutaneous Q4H NITIN Drips: ??? NORepinephrine Stopped (04/11/20 1708) ? ? octreotide (SandoSTATIN) (standard ADULT & Pedi greater than 20kg) infusion ??? sodium chloride 0.9% ??? fentaNYL ??? vasopressin ??? NORepinephrine No Known Allergies OBJECTIVE Vitals: T Temp: [37.9 ??C (100.2 ??F)] HR Heart Rate: [136-167] BP BP: (101-142)/(55-88) RR Resp: [16-33] SpO2 SpO2: [96 %-100 %] IO No intake/output data recorded. Wt Last 68 kg (150 lb) Admit 68.04 kg Physical Exam: GEN: Intubated, sedated, pale HEENT: sclerae anicteric, ETT in-situ, NG in-situ w/ right red bloody output RESP: CTAB CARDIAC: sinus tachy, normal S1/S2, no appreciable murmurs ABDOMEN: Soft, distended, non-tender, normoactive bowel sounds EXTREM: Cool, 1+ edema NEURO: RASS -4 on sedation SKIN: No jaundice Labs: CBC: Recent Labs 04/11/20 1545 WBC 15.2* HGB 11.4* HCT 34.1* MCV 92.2 RDWCV 17.2* COAG: Recent Labs 04/11/20 1545 PTT 30 INR 1.5 CHEM: Recent Labs 04/11/20 1545 GLUCOSE 210* NA 140 K 4.1 CL 102 CO2 20* BUN 24* CREATININE 0.86 ALBUMIN 3.0* CALCIUM 7.3* HEPATIC: Recent Labs 04/11/20 1545 ALKPHOS 111* ALT 22 AST 90* BILITOT 4.9* BILIDIR 3.5* LIPASE 20 IMAGING: Reports and images personally reviewed in eDH XR Chest One View Final Result Endotracheal tube tip at the clavicle heads. Enteric tube in the stomach. Thank you for letting us participate in the care of this patient. For questions regarding this report, please contact the number below. Film Library- Storage Only CT Abdomen & Pelvis Final Result US Liver Elastography (Results Pending) US Abdomen Vascular Limited Hepatology Protocol (Results Pending) ASSESSMENT & PLAN: 39/F hx EtOH use, unclear time of last drink, possible cirrhosis adm 04/11 with hematemesis in hemorrhagic shock. Concern for portal hypertensive bleed given EtOH history, likely EV. Possible PUD v [place]ul[place]oy given hemodynamics. Recommendations: - Maintain two large-bore IVs - Intubated for airway protection - CBC q8h, transfuse to maintain PLT >50, Hb>7 - INR goal <1.5, given PO vitamin K 10mg x3d for any nutritional component to coagulopathy - Type+screen, con ABO, consent for blood - No NSAIDs - Volume resuscitation w/ LR - IV Protonix 40mg BID - IV octreotide 50mcg/hr gtt - IV ceftriaxone 1g x 7d for SBP ppx - EGD, consented Patient seen with Dr. Garcia. Kei Nunes MD PGY-4, Gastroenterology Associated attestation - Javid Garcia MD - 04/11/2020 7:10 PM EDT ATTENDING ATTESTATION: I have seen, examined, and discussed the patient with the GI fellow Dr. Nunes and I agree with the findings, assessment, and plan as written. Javid Garcia MD, [facility] Attending Staff Section of Gastroenterology and Hepatology Pager [phone] documented in this encounter Plan of Treatment Scheduled Orders Name Type Priority Associated Diagnoses Order S chedule EKG 12 Lead ECG STAT GI bleed One Time for 1 Occurrences starting 04/12/2020 unti l 04/12/2020 Scheduled Referrals Name Type Priority Associated Order Schedule Diagnoses Referral to Outpatient Routine GI bleed Ordered: Gastroenterology Referral 04/17/2020 documented as of this encounter Procedures Procedure Name Priority Date/Time Associated Comments Diagnosis ABORH RECHECK STATUS Routine 04/17/2020 3:50 Resu lts for this AM EDT procedure are i n the results section. ABO/RH TYPING Routine 04/17/2020 3:50 Results for this AM EDT procedure are i n the results section. ANTIBODY SCREEN Routine 04/17/2020 3:50 Results f or this AM EDT procedure are i n the results section. HC ABO-MICROTITER Routine 04/17/2020 3:50 AM EDT CMP W/FASTING GLUCOSE Routine 04/17/2020 3:41 Res ults for this AM EDT procedure are i n the results section. HC HEMOGRAM STAT 04/17/2020 3:41 Results for this AM EDT procedure are i n the results section. HC PARTIAL STAT 04/17/2020 3:41 Results for this THROMBOPLASTIN TIME AM EDT procedur e are in the results section. HC PROTHROMBIN TIME STAT 04/17/2020 3:41 Resul ts for this AM EDT procedure are i n the results section. HC FIBRINOGEN TITER STAT 04/17/2020 3:41 Resul ts for this AM EDT procedure are i n the results section. US ABDOMEN VASCULAR Routine 04/16/2020 12:08 Resu lts for this LIMITED - HEPATOLOGY PM EDT procedu re are in PROTOCOL the results section. HC H.PYLORI STOOL Routine 04/16/2020 5:58 Results for this ANTIGEN AM EDT procedure are i n the results section. HC HEMOGRAM STAT 04/16/2020 3:40 Results for this AM EDT procedure are i n the results section. HC PARTIAL STAT 04/16/2020 3:40 Results for this THROMBOPLASTIN TIME AM EDT procedur e are in the results section. HC PROTHROMBIN TIME STAT 04/16/2020 3:40 Resul ts for this AM EDT procedure are i n the results section. HC FIBRINOGEN TITER STAT 04/16/2020 3:40 Resul ts for this AM EDT procedure are i n the results section. HC HEMOGRAM STAT 04/15/2020 8:45 Results for this AM EDT procedure are i n the results section. HC PARTIAL STAT 04/15/2020 4:05 Results for this THROMBOPLASTIN TIME AM EDT procedur e are in the results section. HC PROTHROMBIN TIME STAT 04/15/2020 4:05 Resul ts for this AM EDT procedure are i n the results section. HC FIBRINOGEN TITER STAT 04/15/2020 4:05 Resul ts for this AM EDT procedure are i n the results section. HEPATIC FUNCTION PANEL Routine 04/15/2020 4:05 Re sults for this AM EDT procedure are i n the results section. BASIC METABOLIC PANEL Routine 04/15/2020 4:05 Res ults for this (NON-FASTING) AM EDT procedure are in the results section. HC HEMOGRAM STAT 04/14/2020 8:15 Results for this PM EDT procedure are i n the results section. MRI ABDOMEN WWO CONTRAST STAT 04/14/2020 6:35 Results for this PM EDT procedure are i n the results section. HC IGG, SERUM Routine 04/14/2020 4:50 Results for this PM EDT procedure are i n the results section. HC PCH LIVER-KIDNEY Routine 04/14/2020 4:50 Resul ts for this MICROSOMAL AB PM EDT procedure are in the results section. HC IRON BINDING CAPACITY Routine 04/14/2020 4:50 Results for this PM EDT procedure are i n the results section. HC A1AT (ALPHA-1 Routine 04/14/2020 4:50 Results for this ANTITRYPSIN) PM EDT procedure are i n the results section. HC PCH MITOCHONDRIAL Routine 04/14/2020 4:50 Resu lts for this ANTIBODY PM EDT procedure are i n the results section. HC TISSUE Routine 04/14/2020 4:50 Results for this TRANSGLUTAMINASE AB PM EDT procedur e are in the results section. HC CERULOPLASMIN Routine 04/14/2020 4:50 Results for this PM EDT procedure are i n the results section. HC PCH SMOOTH MUSCLE AB, Routine 04/14/2020 4:50 Results for this SERUM PM EDT procedure are i n the results section. HC HIV SCREEN, 4TH Routine 04/14/2020 4:50 Result s for this GENERATION PM EDT procedure are i n the results section. HC ANTINUCLEAR Routine 04/14/2020 4:50 Results fo r this ANTIBODY,SERUM PM EDT procedure are in the results section. HC DRVVT RATIO Routine 04/14/2020 10:11 AM EDT SILICA CLOTTING TIME Routine 04/14/2020 10:11 Res ults for this AM EDT procedure are i n the results section. DRVVT Routine 04/14/2020 10:11 Results for this AM EDT procedure are i n the results section. HC HEMOGRAM STAT 04/14/2020 8:11 Results for this AM EDT procedure are i n the results section. HC POTASSIUM Routine 04/14/2020 8:11 Results for this AM EDT procedure are i n the results section. ABORH RECHECK STATUS Routine 04/14/2020 1:20 Resu lts for this AM EDT procedure are i n the results section. ABO/RH TYPING Routine 04/14/2020 1:20 Results for this AM EDT procedure are i n the results section. HC FIBRINOGEN TITER STAT 04/14/2020 1:20 Resul ts for this AM EDT procedure are i n the results section. ANTIBODY SCREEN Routine 04/14/2020 1:20 Results f or this AM EDT procedure are i n the results section. HC ANTIBODY Routine 04/14/2020 1:20 DETECTION,CAPTURE-R AM EDT HEPATIC FUNCTION PANEL Routine 04/14/2020 1:20 Re sults for this AM EDT procedure are i n the results section. BASIC METABOLIC PANEL Routine 04/14/2020 1:20 Res ults for this (NON-FASTING) AM EDT procedure are in the results section. XR CHEST ONE VIEW Routine 04/13/2020 11:54 Result s for this PM EDT procedure are i n the results section. HC HEMOGRAM STAT 04/13/2020 8:10 Results for this PM EDT procedure are i n the results section. US ABDOMEN VASCULAR STAT 04/13/2020 11:26 Resu lts for this LIMITED - HEPATOLOGY AM EDT procedu re are in PROTOCOL the results section. HC HEMOGRAM STAT 04/13/2020 5:55 Results for this AM EDT procedure are i n the results section. HC FIBRINOGEN TITER STAT 04/13/2020 5:55 Resul ts for this AM EDT procedure are i n the results section. HC HEMOGRAM STAT 04/13/2020 12:40 Results for this AM EDT procedure are i n the results section. HC PARTIAL STAT 04/13/2020 12:40 Results for this THROMBOPLASTIN TIME AM EDT procedur e are in the results section. HC PROTHROMBIN TIME STAT 04/13/2020 12:40 Resu lts for this AM EDT procedure are i n the results section. HC FIBRINOGEN TITER STAT 04/13/2020 12:40 Resu lts for this AM EDT procedure are i n the results section. HEPATIC FUNCTION PANEL Routine 04/13/2020 12:40 R esults for this AM EDT procedure are i n the results section. BASIC METABOLIC PANEL Routine 04/13/2020 12:40 Re sults for this (NON-FASTING) AM EDT procedure are in the results section. REQUEST FOR 2ND READ CT Routine 04/12/2020 8:17 R esults for this ABDOMEN AND PELVIS PM EDT procedure are in the results section. HC HEMOGRAM STAT 04/12/2020 6:05 Results for this PM EDT procedure are i n the results section. HC FIBRINOGEN TITER STAT 04/12/2020 6:05 Resul ts for this PM EDT procedure are i n the results section. HC HEMOGRAM STAT 04/12/2020 1:10 Results for this PM EDT procedure are i n the results section. HC HEPATITIS A IGM Routine 04/12/2020 1:10 Result s for this PM EDT procedure are i n the results section. HC FIBRINOGEN TITER STAT 04/12/2020 1:10 Resul ts for this PM EDT procedure are i n the results section. EXTUBATE Routine 04/12/2020 10:07 AM EDT HC HEMOGRAM STAT 04/12/2020 8:10 Results for this AM EDT procedure are i n the results section. HC FIBRINOGEN TITER STAT 04/12/2020 8:10 Resul ts for this AM EDT procedure are i n the results section. POCT GLUCOSE Routine 04/12/2020 4:16 Results for this AM EDT procedure are i n the results section. HC HEMOGRAM STAT 04/12/2020 4:15 Results for this AM EDT procedure are i n the results section. HC PARTIAL STAT 04/12/2020 4:15 Results for this THROMBOPLASTIN TIME AM EDT procedur e are in the results section. HC PROTHROMBIN TIME STAT 04/12/2020 4:15 Resul ts for this AM EDT procedure are i n the results section. HC FIBRINOGEN TITER STAT 04/12/2020 4:15 Resul ts for this AM EDT procedure are i n the results section. HEPATIC FUNCTION PANEL Routine 04/12/2020 2:45 Re sults for this AM EDT procedure are i n the results section. BASIC METABOLIC PANEL Routine 04/12/2020 2:45 Res ults for this (NON-FASTING) AM EDT procedure are in the results section. IR ARTERIAL INTERVENTION STAT 04/12/2020 2:11 Results for this AM EDT procedure are i n the results section. HC HEMOGRAM STAT 04/12/2020 12:10 Results for this AM EDT procedure are i n the results section. HC L-LACTATE STAT 04/12/2020 12:10 Results for this AM EDT procedure are i n the results section. HC BLOOD CULTURE- STAT 04/12/2020 12:10 Result s for this AM EDT procedure are i n the results section. HC PARTIAL STAT 04/12/2020 12:10 Results for this THROMBOPLASTIN TIME AM EDT procedur e are in the results section. HC PROTHROMBIN TIME STAT 04/12/2020 12:10 Resu lts for this AM EDT procedure are i n the results section. HC FIBRINOGEN TITER STAT 04/12/2020 12:10 Resu lts for this AM EDT procedure are i n the results section. TRANSFUSE RED BLOOD Routine 04/11/2020 10:22 CELLS PM EDT TRANSFUSE RED BLOOD Routine 04/11/2020 8:10 CELLS PM EDT POCT GLUCOSE Routine 04/11/2020 7:56 Results for this PM EDT procedure are i n the results section. HC HEMOGRAM STAT 04/11/2020 7:45 Results for this PM EDT procedure are i n the results section. HC PARTIAL STAT 04/11/2020 7:45 Results for this THROMBOPLASTIN TIME PM EDT procedur e are in the results section. HC PROTHROMBIN TIME STAT 04/11/2020 7:45 Resul ts for this PM EDT procedure are i n the results section. HC FIBRINOGEN TITER STAT 04/11/2020 7:45 Resul ts for this PM EDT procedure are i n the results section. HC TRIGLYCERIDES Routine 04/11/2020 7:45 Results for this PM EDT procedure are i n the results section. BLOOD GAS 2 ARTERIAL Routine 04/11/2020 5:53 Resu lts for this PM EDT procedure are i n the results section. HC HEPATITIS C ANTIBODY Routine 04/11/2020 5:40 R esults for this PM EDT procedure are i n the results section. HC HEPATITIS A, TOTAL Routine 04/11/2020 5:40 Res ults for this PM EDT procedure are i n the results section. HC HEP B CORE AB IGM Routine 04/11/2020 5:40 Resu lts for this PM EDT procedure are i n the results section. HC HEPATITIS B SURFACE Routine 04/11/2020 5:40 Re sults for this AB PM EDT procedure are i n the results section. HC HEPATITIS B SURFACE Routine 04/11/2020 5:40 Re sults for this AG PM EDT procedure are i n the results section. HC LIPASE STAT 04/11/2020 5:40 Results for this PM EDT procedure are i n the results section. HC FOLATE, SERUM STAT 04/11/2020 5:40 Results for this PM EDT procedure are i n the results section. HC VITAMIN B12 SERUM STAT 04/11/2020 5:40 Resu lts for this PM EDT procedure are i n the results section. HC AMMONIA, PLASMA STAT 04/11/2020 5:40 Result s for this PM EDT procedure are i n the results section. POCT GLUCOSE Routine 04/11/2020 5:19 Results for this PM EDT procedure are i n the results section. UPPER GI ENDOSCOPY Routine 04/11/2020 5:16 Result s for this PM EDT procedure are i n the results section. XR CHEST ONE VIEW STAT 04/11/2020 4:34 Results for this PM EDT procedure are i n the results section. RAPID COVID-19 PCR STAT 04/11/2020 4:33 Result s for this ([facility]) PM EDT procedure are in the results section. RAPID DRUG SCREEN, URINE STAT 04/11/2020 4:32 Results for this (TELMA REQUEST) PM EDT procedure are in the results section. RAPID DRUG SCREEN W/O STAT 04/11/2020 4:32 Res ults for this CONFIRMATION, URINE PM EDT procedur e are in the results section. PREPARE RBC STAT 04/11/2020 4:00 Results for this PM EDT procedure are i n the results section. ABORH RECHECK STATUS STAT 04/11/2020 3:50 Resu lts for this PM EDT procedure are i n the results section. ABO/RH TYPING STAT 04/11/2020 3:50 Results for this PM EDT procedure are i n the results section. ANTIBODY SCREEN STAT 04/11/2020 3:50 Results f or this PM EDT procedure are i n the results section. HC ANTIBODY STAT 04/11/2020 3:50 DETECTION,CAPTURE-R PM EDT HC PLATELET COUNT STAT 04/11/2020 3:45 PM EDT RED TUBE HOLD STAT 04/11/2020 3:45 Results for this PM EDT procedure are i n the results section. HEMOGRAM STAT 04/11/2020 3:45 Results for this PM EDT procedure are i n the results section. DIFFERENTIAL, AUTOMATED STAT 04/11/2020 3:45 R esults for this PM EDT procedure are i n the results section. GOLD TUBE HOLD STAT 04/11/2020 3:45 Results fo r this PM EDT procedure are i n the results section. HC PARTIAL STAT 04/11/2020 3:45 Results for this THROMBOPLASTIN TIME PM EDT procedur e are in the results section. HC PROTHROMBIN TIME STAT 04/11/2020 3:45 Resul ts for this PM EDT procedure are i n the results section. FIBRINOGEN STAT 04/11/2020 3:45 Results for this PM EDT procedure are i n the results section. PLATELET COUNT STAT 04/11/2020 3:45 Results fo r this PM EDT procedure are i n the results section. HC CBC,PLT & AUTO DIFF STAT 04/11/2020 3:45 PM EDT HC LIPASE STAT 04/11/2020 3:45 Results for this PM EDT procedure are i n the results section. HC ALCOHOL, BLOOD STAT 04/11/2020 3:45 Results for this PM EDT procedure are i n the results section. HEPATIC FUNCTION PANEL STAT 04/11/2020 3:45 Re sults for this PM EDT procedure are i n the results section. BASIC METABOLIC PANEL STAT 04/11/2020 3:45 Res ults for this (NON-FASTING) PM EDT procedure are in the results section. BLOOD GAS 2 VENOUS Routine 04/11/2020 3:38 Result s for this PM EDT procedure are i n the results section. FILM LIBRARY STORAGE STAT 04/09/2020 12:00 Res ults for this ONLY CT ABDOMEN AND AM EDT procedur e are in PELVIS the results section. documented in this encounter Results ABORH Recheck Status (04/17/2020 3:50 AM EDT) [facility] Method Time Signature ABORH Type Completed [facility] LABORATORY Specimen Anatomical Collection Method Collection Time Receive d Time (Source) Location / / Volume Laterality Blood specimen 04/17/2020 3:50 AM 020 3:50 (specimen) EDT AM EDT Resulting Agency Comment Spec In Lab Evin Mckeon DO BLOOD BANK ORDERABLES Performing Organization Address City/[facility]/[place] [address] Antibody screen (04/17/2020 3:50 AM EDT) [facility] Method Time Signature Ab Screen Negative [facility] LABORATORY Expires at 04/20/2020 [place]IEG[place] [id number] on: [facility] Specimen Anatomical Collection Method Collection Time Receive d Time (Source) Location / / Volume Laterality Blood specimen 04/17/2020 3:50 AM 020 3:50 (specimen) EDT AM EDT Resulting Agency Comment Spec In Lab Evin Pratt Gale DO BLOOD BANK ORDERABLES Performing Organization Address City/State/[place] [address] ABO/Rh Typing (04/17/2020 3:50 AM EDT) P athologist Signature ABORh Type A Pos [facility] Specimen Anatomical Collection Method Collection Time Receive d Time (Source) Location / / Volume Laterality Blood specimen 04/17/2020 3:50 AM 020 3:50 (specimen) EDT AM EDT Resulting Agency Comment Spec In Lab Evin E Linda DO BLOOD BANK ORDERABLES Performing Organization Address City/State/[place] [address] (ABNORMAL) Hemogram (04/17/2020 3:41 AM EDT) Analysis Performed At Patho logist Time Signature WBC 10.3 (H) 4.0 - 9.5 [facility] [place] x10(3)/[facility] LABORATORY RBC 3.45 (L) 4.00 - [employer] 5.21 [facility] x10(6)/[facility] LABORATORY Hemoglobin 10.5 (L) 11.7 - [facility] [place] 15.5 gm/dL [facility] Hematocrit 31.6 (L) 35.7 - [place] 45.8 % [facility] MCV 91.6 82.6 - [place] 94.4 [facility] LABORATORY MCH 30.4 27.1 - [employer] 32.0 pg [facility] MCHC 33.2 31.7 - [place] 35.0 gm/dL [facility] Platelets 280 145 - 357 [place]EL Langt[place] x10(3)/[facility] LABORATORY RDWSD 60.0 (H) 37.0 - [employer] 46.0 [facility] LABORATORY RDWCV 18.7 (H) 11.5 - [employer] 14.1 % [facility] MPV 11.1 7.6 - 12.9 A[place]EL Langtice [facility] LABORATORY nRBC % Auto 0.0 % [facility] nRBC Abs Auto 0.000 0.000 - [place] 0.000 [facility] x10(3)/[facility] LABORATORY Specimen Anatomical Collection Method Collection Time Receive d Time (Source) Location / / Volume Laterality Blood specimen 04/17/2020 3:41 AM 020 3:54 (specimen) EDT AM EDT Resulting Agency Comment Spec In Lab Karina Breaux MD HEMATOLOGY ORDERABLES Performing Organization Address City/State/[place] [address] (ABNORMAL) Fibrinogen (04/17/2020 3:41 AM EDT) P athologist Signature Fibrinogen 177 (L) 200 - 393 [facility] mg/dL [facility] Comment: A fibrinogen level >100 mg/dL is adequat e for hemostasis in most patients without underlying bleeding disorders. Specimen Anatomical Collection Method Collection Time Receive d Time (Source) Location / / Volume Laterality Blood specimen 04/17/2020 3:41 AM 020 3:54 (specimen) EDT AM EDT Resulting Agency Comment Spec In Lab Ashli Llamas MD HEMATOLOGY ORDERABLES Performing Organization Address City/[facility]/ZIP [place] [address] (ABNORMAL) Prothrombin Time (04/17/2020 3:41 AM EDT) P athologist Signature PT 20.0 (H) 9.4 - 12.5 [facility] LABORATORY INR 1.7 [facility] Comment: An INR <2.0 [...] Location / / Volume Laterality Blood specimen 04/17/2020 3:41 AM 020 3:54 (specimen) EDT AM EDT Resulting Agency Comment Spec In Lab Ashli Llamas MD HEMATOLOGY ORDERABLES Performing Organization Address City/[facility]/ZIP Code Phon [place] [address] APTT (04/17/2020 3:41 AM EDT) athologist Signature PTT 35 25 - 37 sec [facility] Comment: The PTT is NOT appropriate for heparin m onitoring. Use the Anti-Xa level for heparin monitoring (HEP UFH) or LMWH mon itoring (HEP LMW). A PTT less than 37 seconds generally indicates adequate hem ostasis. Specimen Anatomical Collection Method Collection Time Receive d Time (Source) Location / / Volume Laterality Blood specimen 04/17/2020 3:41 AM 020 3:54 (specimen) EDT AM EDT Resulting Agency Comment Spec In Lab Aslhi Llamas MD HEMATOLOGY ORDERABLES Performing Organization Address City/State/Z[place] [address] (ABNORMAL) CMP w/fasting Glucose (04/17/2020 3:41 AM EDT) athologist Signature Glucose 98 65 - 99 [facility] Fasting mg/dL [facility] Comment: ?Fasting* Glucose Interpretive C riteria [...] of Diabetes Mellitus, Position Statement from the [place] [employer]. ??Diabete s Care, Volume 33, Supplement 1, Aug 2009 BUN 9 8 - 18 mg/dL [facility] Creatinine 0.69 (L) 0.70 - 1.20 mg/dL [facility] Sodium 137 135 - 145 mmol/L [facility] Potassium 3.3 (L) 3.5 - 5.0 mmol/L [facility] Comment: Please note: ??Patients with WBC >100,00 0 may have falsely elevated Potassium levels. ??For accurate Potassium quantif ication in these patients send serum separator tube (gold top) for subsequent determinations. ??Contact the Clinical Chemistry Laboratory if there are any qu estions. Chloride 104 98 - 107 mmol/L [facility] CO2 25 22 - 31 mmol/L [facility] Anion Gap 8 5 - 15 mmol/L [facility] Calcium 8.0 (L) 8.5 - 10.5 mg/dL [facility] Total Protein 4.9 (L) 6.1 - 8.0 gm/dL [facility] Albumin 2.4 (L) 3.2 - 5.2 gm/dL [facility] AST 136 (H) 0 - 30 unit/L [facility] ALT 40 (H) 0 - 30 unit/L [facility] Alk Phos 101 35 - 105 unit/L [facility] Total Bilirubin 7.6 (H) 0.2 - 1.3 mg/dL [facility] Estimated GFR 108 >=60 mL/min/1.73 m?? [facility] Comment: The eGFR was calculated using the CKD-EP I equation. As with all creatinine based estimates of kidney function, eGFR values calculated with the CKD-EPI equation are not accurate in patients wi th acute kidney failure, extremes of body mass or the acutely ill. [email or web address] CITYnkf eGFR 125 >=60 mL/min/1.73 m?? [facility] Comment: The eGFR was calculated using the CKD-EP I equation. As with all creatinine based estimates of kidney function, eGFR values calculated with the CKD-EPI equation are not accurate in patients wi th acute kidney failure, extremes of body mass or the acutely ill. [email or web address] CITYnkf Specimen Anatomical Collection Method Collection Time Receive d Time (Source) Location / / Volume Laterality Blood specimen 04/17/2020 3:41 AM 020 3:54 (specimen) EDT AM EDT Resulting Agency Comment Spec In Lab Karina Breaux MD CHEMISTRY ORDERABLES Performing Organization Address City/State/[place] [address] US Abdomen Vascular Limited Hepatology Protocol (04/16/2020 12:08 PM EDT) Anatomical Region Laterality Modality Abdomen Ultrasound Specimen (Source) Anatomical Collection Method Collection Time Re ceived Time Location / / Volume Laterality 04/16/2020 12:09 PM EDT Impressions 04/16/2020 12:26 PM EDT ?? Heterogeneous echogenic coarse paren chymal echotexture without focal lesion. Hepatofugal flow patent main portal vein. Patent hepatopedal flow in the left portal vei n without sonographically evident recanalized umbilical vein. To and fro flow in the patent right portal vein. Portal venous hypertension characterize d by ascites, bilateral pleural effusions and mild splenomegaly. Thank you for letting us participate in the care of this patient. For questions regarding this report, please contact t he number below. Electronically signed by: Lizzy Littlejohn, [facility] [place] ([phone]), at 12:18 PM ?Iwona [facility] Chief Electronically Signed Final Report ?? 12:26 pm Narrative 04/16/2020 12:26 PM EDT Abdominal ? (Signed Final 04/16/2020 12:26 pm) PATIENT INFO: ID #: ? [id number] ?: ??[birth year] (39 yrs)(F) Name: ? VIOLET COWAN ? Visit Date: 04/16/2020 12:09 pm PERFORMED BY: Performed By: ? Varghese Jackson RDMS Attending: ?Chrissie Peterson MD Referred By: ?KARINA Mo SAEID Location: ? [place] SERVICE(S) PROVIDED: ??[facility] - Hepatology Protocol- Abdomi nal ?[id number], [id number] ??Limited Survey with Vascular - Single Organ or ??Quadrant - [id number] INDICATIONS: ??pt w/ etoh cirrhosis, ? portal venous ??thrombus on previous imaging COMPARISON: MRI- Abdomen 04/14/20 ------ LIVER: ------ Right Lobe Length: ?? 19.4 ?? cm Echogenicity/Echotexture: ?? Coarse ech ogenic parenchyma ? with capsular nodularity Portal Veins: ?Hepatofugal Comment: ?No focal lesion seen. HEPATIC-PORTAL DUPLEX: ? PSV ? Waveform ? (cm/s) Main Portal ? 18.1 ?Patent Vein: Right Portal ?Patent, To-Fro Vein: ? Flow Left Portal ? Patent Vein: ? Dir ection of Flow Main Portal ? Hepatofug al Vein: Collaterals: ?None visualized GALLBLADDER: Cholelithiasis: ?No stones visua lized Wall Thickness: ?Unable to deter mine due to ascities Focal Tenderness: ?Negative sonogra phic Link's sign Comment: ?Sludge BILIARY TRACT: Intrahepatic Ducts: ?? Normal Extrahepatic Ducts: ?? Normal Common Duct Size: ? 4.0 ? mm ------- SPLEEN: ------- Size (cm) ?L: ??13.9 ?AP: ?? 4.5 ? TV: ??7.7 Vol (ml): ?252.2 Comment: ?Splenomegaly- mild FLUID COLLECTIONS: Bilateral ??pleural effusions. Small am ount ascites seen. Procedure Note Chrissie Peterson MD - 04/16/2020 Abdominal (Signed Final 04/16/2020 12:2 6 pm) PATIENT INFO: ID #: [id number] : [birth year] (39 y rs)(F) Name: VIOLET COWAN Visit Date: 12:09 pm PERFORMED BY: Performed By: Varghese Jackson RDMS Attending: Chrissie Peterson MD Referred By: KARINA BREAUX Location: [place] [facility]ICE(S) [facility] Hep[facility] Protocol- Abdomina l 16086, 63787 Limited Survey with Vascular - Single O rgan or Quadrant - [id number] INDICATIONS: pt w/ etoh cirrhosis, ? portal venous thrombus on previous imaging COMPARISON: MRI- Abdomen 04/14/20 ------ LIVER: ------ Right Lobe Length: 19.4 cm Echogenicity/Echotexture: Coarse echoge lani parenchyma with capsular nodularity Portal Veins: Hepatofugal Comment: No focal lesion seen. HEPATIC-PORTAL DUPLEX: PSV Waveform (cm/s) Main Portal 18.1 Patent Vein: Right Portal Patent, To-Fro Vein: Flow Left Portal Patent Vein: Direction of Flow Main Portal Hepatofugal Vein: Collaterals: None visualized GALLBLADDER: Cholelithiasis: No stones visualized Wall Thickness: Unable to determine due to ascities Focal Tenderness: Negative sonographic Link's sign Comment: Sludge BILIARY TRACT: Intrahepatic Ducts: Normal Extrahepatic Ducts: Normal Common Duct Size: 4.0 mm ------- SPLEEN: ------- Size (cm) L: 13.9 AP: 4.5 TV: 7.7 Vol (ml): 252.2 Comment: Splenomegaly- mild FLUID COLLECTIONS: Bilateral pleural effusions. Small amou nt ascites seen. IMPRESSION Heterogeneous echogenic coarse parenchy mal echotexture without focal lesion. Hepatofugal flow patent main portal vein. Patent hepatopedal flow in the left portal vei n without sonographically evident recanalized umbilical vein. To and fro flow in the patent right portal vein. Portal venous hypertension characterize d by ascites, bilateral pleural effusions and mild splenomegaly. Thank you for letting us participate in the care of this patient. For questions regarding this report, please contact t he number below. Electronically signed by: Lizzy Littlejohn, [facility] ([phone]), at 12:18 PM Chrissie Peterson, [employer] Electronically Signed Final Report 04/16 12:26 pm Karina Breaux MD IM US GEN ORDERABLES Helicobacter pylori Antigen Stool (04/16/2020 5:58 AM EDT) Analysis Performed At Patho logist Time Signature H pylori Stool Negative Negative [facility] LABORATORY Comment: Test performed by immunoassay. H pylori Comment See Comment [facility] Comment: Antimicrobials, proton pump inhibitors a nd bismuth preparations are known to suppress H pylori, and ingestion of thes e prior to H. pylori testing may cause false negative results. Specimen Anatomical Collection Method Collection Time Receive d Time (Source) Location / / Volume Laterality Stool specimen 04/16/2020 5:58 AM 020 8:14 (specimen) EDT AM EDT Resulting Agency Comment Spec In Lab Ashli Llamas MD MICROBIOLOGY - GENERAL ORDER MARK Performing Organization Address City/State/[place] [address] (ABNORMAL) Hemogram (04/16/2020 3:40 AM EDT) [facility] gist Method Time Signature WBC 9.3 4.0 - 9.5 [facility] LAB[facility]ATORY RBC 3.79 (L) 4.00 - [place] 5.21 [facility] x10(6)/[facility] LABORATORY Hemoglobin 11.6 (L) 11.7 - [facility] 15.5 gm/dL [facility] Hematocrit 34.8 (L) 35.7 - [facility] 45.8 % [facility] MCV 91.8 82.6 - [facility] 94.4 [facility] LABORATORY MCH 30.6 27.1 - [facility] [place] 32.0 pg [facility] MCHC 33.3 31.7 - [facility] 35.0 gm/dL [facility] Platelets 238 145 - 357 [facility] x[facility] LABORATORY RDWSD 57.3 (H) 37.0 - [facility] [place] 46.0 [facility] LABORATORY RDWCV 17.9 (H) 11.5 - [facility] [place] 14.1 % [facility] MPV 11.4 7.6 - 12.9 [facility] LABORATORY nRBC % Auto 0.4 % [facility] nRBC Abs Auto 0.040 (H) 0.000 - [place] 0.000 [facility] x10(3)/[facility] LABORATORY Specimen Anatomical Collection Method Collection Time Receive d Time (Source) Location / / Volume Laterality Blood specimen 04/16/2020 3:40 AM 020 3:49 (specimen) EDT AM EDT Resulting Agency Comment Spec In Lab Karina Breaux MD HEMATOLOGY ORDERABLES Performing Organization Address City/[facility]/[place] [address] (ABNORMAL) Fibrinogen (04/16/2020 3:40 AM EDT) P athologist Signature Fibrinogen 177 (L) 200 - 393 [facility] mg/dL [facility] Comment: A fibrinogen level >100 mg/dL is adequat e for hemostasis in most patients without underlying bleeding disorders. Specimen Anatomical Collection Method Collection Time Receive d Time (Source) Location / / Volume Laterality Blood specimen 04/16/2020 3:40 AM 020 3:49 (specimen) EDT AM EDT Resulting Agency Comment Spec In Lab Ashli Llamas MD HEMATOLOGY ORDERABLES Performing Organization Address [facility] Phon e Number [address] (ABNORMAL) Prothrombin Time (04/16/2020 3:40 AM EDT) P athologist Signature PT 16.1 (H) 9.4 - 12.5 [facility] LABORATORY INR 1.4 [facility] Comment: An INR <2.0 [...] Location / / Volume Laterality Blood specimen 04/16/2020 3:40 AM 020 3:49 (specimen) EDT AM EDT Resulting Agency Comment Spec In Lab Ashli Llamas MD HEMATOLOGY ORDERABLES Performing Organization Address City/[facility]/ZIP [facility] [place] [address] (ABNORMAL) APTT (04/16/2020 3:40 AM EDT) P athologist Signature PTT 41 (H) 25 - 37 sec [facility] Comment: The PTT is NOT appropriate for heparin m onitoring. Use the Anti-Xa level for heparin monitoring (HEP UFH) or LMWH mon itoring (HEP LMW). A PTT less than 37 seconds generally indicates adequate hem ostasis. Specimen Anatomical Collection Method Collection Time Receive d Time (Source) Location / / Volume Laterality Blood specimen 04/16/2020 3:40 AM 020 3:49 (specimen) EDT AM EDT Resulting Agency Comment Spec In Lab Ashli Llamas MD HEMATOLOGY ORDERABLES Performing Organization Address City/State/[place] [address] (ABNORMAL) Hemogram (04/15/2020 8:45 AM EDT) [facility] gist Method Time Signature WBC 7.0 4.0 - 9.5 [facility] x10(3)/[facility] LABORATORY RBC 3.27 (L) 4.00 - [place] 5.21 [facility] x10(6)/[facility] LABORATORY Hemoglobin 10.2 (L) 11.7 - [place] 15.5 gm/dL [facility] Hematocrit 29.5 (L) 35.7 - [facility] [place] 45.8 % [facility] MCV 90.2 82.6 - [facility] [place] 94.4 [facility] LABORATORY MCH 31.2 27.1 - [employer] 32.0 pg [facility] MCHC 34.6 31.7 - [facility] 35.0 gm/dL [facility] Platelets 150 145 - 357 [facility] x10(3)/[facility] LABORATORY RDWSD 56.2 (H) 37.0 - [place] 46.0 [facility] LABORATORY RDWCV 17.2 (H) 11.5 - [place] 14.1 % [facility] MPV 11.5 7.6 - 12.9 [facility] LABORATORY nRBC % Auto 0.4 % [facility] nRBC Abs Auto 0.030 (H) 0.000 - [place] 0.000 [facility] x10(3)/[facility] LABORATORY Specimen Anatomical Collection Method Collection Time Receive d Time (Source) Location / / Volume Laterality Blood specimen 04/15/2020 8:45 AM 020 8:53 (specimen) EDT AM EDT Resulting Agency Comment Spec In Lab Ashli Llamas MD HEMATOLOGY ORDERABLES Performing Organization Address City/[facility]/[place] [address] (ABNORMAL) Hepatic Function Panel (04/15/2020 4:05 AM EDT) athologist Signature Total Protein 4.4 (L) 6.1 - 8.0 [facility] gm/dL [facility] Albumin 2.3 (L) 3.2 - 5.2 [facility] gm/dL [facility] AST 102 (H) 0 - 30 [facility] unit/L [facility] ALT 26 0 - 30 [facility] unit/L [facility] Alk Phos 79 35 - 105 [facility] unit/L [facility] Total 7.3 (H) 0.2 - 1.3 [facility] Bilirubin mg/dL [facility] Bili, Direct 6.8 (H) 0.0 - 0.3 [facility] mg/dL [facility] Specimen Anatomical Collection Method Collection Time Receive d Time (Source) Location / / Volume Laterality Blood specimen 04/15/2020 4:05 AM 020 4:15 (specimen) EDT AM EDT Resulting Agency Comment Spec In Lab Ashli Llamas MD CHEMISTRY ORDERABLES Performing Organization Address City/[facility]/Z[place] [address] (ABNORMAL) Basic Metabolic Panel (non-fasting) (04/15/2020 4:05 AM EDT) athologist Signature Glucose Lvl 94 65 - 199 [facility] mg/dL [facility] Comment: Diabetes: >=200 mg/dL plus symp toms BUN 11 8 - 18 mg/dL [facility] LAB[facility]ORY Creatinine 0.64 (L) 0.70 - 1.20 mg/dL [facility]ORY Sodium 138 135 - 145 mmol/L [facility] Potassium 3.6 3.5 - 5.0 mmol/L [facility] Comment: Please note: ??Patients with WBC >100,00 0 may have falsely elevated Potassium levels. ??For accurate Potassium quantif ication in these patients send serum separator tube (gold top) for subsequent determinations. ??Contact the Clinical Chemistry Laboratory if there are any qu estions. Chloride 106 98 - 107 mmol/L [facility] CO2 25 22 - 31 mmol/L [facility] Anion Gap 7 5 - 15 mmol/L [facility]ORY Calcium 7.7 (L) 8.5 - 10.5 mg/dL [facility] Estimated GFR 111 >=60 mL/min/1.73 m?? [facility] Comment: The eGFR was calculated using the CKD-EP I equation. As with all creatinine based estimates of kidney function, eGFR values calculated with the CKD-EPI equation are not accurate in patients wi th acute kidney failure, extremes of body mass or the acutely ill. [email or web address] CITYnkf eGFR 128 >=60 mL/min/1.73 m?? [facility] Comment: The eGFR was calculated using the CKD-EP I equation. As with all creatinine based estimates of kidney function, eGFR values calculated with the CKD-EPI equation are not accurate in patients wi th acute kidney failure, extremes of body mass or the acutely ill. [email or web address] CITYnkf Specimen Anatomical Collection Method Collection Time Receive d Time (Source) Location / / Volume Laterality Blood specimen 04/15/2020 4:05 AM 020 4:15 (specimen) EDT AM EDT Resulting Agency Comment Spec In Lab Ashli Llamas MD CHEMISTRY ORDERABLES Performing Organization Address City/State/[place] [address] (ABNORMAL) Fibrinogen (04/15/2020 4:05 AM EDT) athologist Signature Fibrinogen 155 (L) 200 - 393 [facility] mg/dL [facility] Comment: A fibrinogen level >100 mg/dL is adequat e for hemostasis in most patients without underlying bleeding disorders. Specimen Anatomical Collection Method Collection Time Receive d Time (Source) Location / / Volume Laterality Blood specimen 04/15/2020 4:05 AM 020 4:15 (specimen) EDT AM EDT Resulting Agency Comment Spec In Lab Ashli Llamas MD HEMATOLOGY ORDERABLES Performing Organization Address [facility]/ZIP [facility] [place] [address] (ABNORMAL) Prothrombin Time (04/15/2020 4:05 AM EDT) P athologist Signature PT 16.9 (H) 9.4 - 12.5 [facility] LABORATORY INR 1.5 [facility] Comment: An INR <2.0 [...] Location / / Volume Laterality Blood specimen 04/15/2020 4:05 AM 020 4:15 (specimen) EDT AM EDT Resulting Agency Comment Spec In Lab Ashli Llamas MD HEMATOLOGY ORDERABLES Performing Organization Address [facility] [place] [address] APTT (04/15/2020 4:05 AM EDT) P athologist Signature PTT 33 25 - 37 sec [facility] Comment: The PTT is NOT appropriate for heparin m onitoring. Use the Anti-Xa level for heparin monitoring (HEP UFH) or LMWH mon itoring (HEP LMW). A PTT less than 37 seconds generally indicates adequate hem ostasis. Specimen Anatomical Collection Method Collection Time Receive d Time (Source) Location / / Volume Laterality Blood specimen 04/15/2020 4:05 AM 020 4:15 (specimen) EDT AM EDT Resulting Agency Comment Spec In Lab Ashli Llamas MD HEMATOLOGY ORDERABLES Performing Organization Address City/State/ZIP Code Phon e Number [address] (ABNORMAL) Hemogram (04/14/2020 8:15 PM EDT) [facility] gist Method Time Signature WBC 8.2 4.0 - 9.5 [place] x10(3)/[facility] LABORATORY RBC 3.45 (L) 4.00 - [place] 5.21 [facility] x10(6)/[facility] LABORATORY Hemoglobin 10.6 (L) 11.7 - [facility] 15.5 gm/dL [facility] Hematocrit 31.0 (L) 35.7 - [facility] [facility] 45.8 % [facility] LABORATORY MCV 89.9 82.6 - [facility]4 [facility] LABORATORY MCH 30.7 27.1 - [place] 32.0 pg [facility] LABORATORY MCHC 34.2 31.7 - [place] 35.0 gm/dL [facility] LABORATORY Platelets 138 (L) 145 - 357 [facility] LABORATORY RDWSD 57.1 (H) 37.0 - [place] 46.0 [facility] LABORATORY RDWCV 17.4 (H) 11.5 - [facility] RODOLFO 14.1 % [facility] LABORATORY MPV 11.2 7.6 - 12.9 [facility] nRBC % Auto 0.5 % [facility] LABORATORY nRBC Abs Auto 0.040 (H) 0.000 - [facility] RODOLFO 0.000 [facility] x10(3)/[facility] LABORATORY Specimen Anatomical Collection Method Collection Time Receive d Time (Source) Location / / Volume Laterality Blood specimen 04/14/2020 8:15 PM 020 8:19 (specimen) EDT PM EDT Resulting Agency Comment Spec In Lab Ashli Llamas MD HEMATOLOGY ORDERABLES Performing Organization Address City/State/[place] [address] MRI Abdomen wwo Contrast (Generic) (04/14/2020 6:35 PM EDT) Anatomical Region Laterality Modality Abdomen Magnetic Resonance Specimen (Source) Anatomical Location Collection Method / Collectio n Time Received Time / Laterality Volume Impressions 04/15/2020 7:46 AM EDT 1. ??Significantly limited examination, as detailed above. 2. ??Hepatomegaly = 21.1 cm. 3. ??Multifocal hepatic steatosis, most pronounced within the left hepatic lobe. Within the limits of the examination, no focal suspicious hepatic lesions. If screening for cirrhotic changes / hepato cellular carcinoma is required, future evaluations should be with CT of the Abd omen (Hepatic Protocol - without and with intravenous contrast) given signifi cant respiratory motion artifact and susceptibility artifact from endovascula r occluding devices. 4. ??Respiratory motion artifact is most pronounced on postcontrast images. ??The hepatic veins and portal veins are paten t; however, evaluation for partial thrombosis is nondiagnostic. 5. ??Interval increase but still small a scites, predominantly within the pelvis. Increase in edema throughout the mesente ry. 6. ??New small bilateral pleural fluid w ith associated compressive atelectasis. 7. ??Interval development of diffuse oxana sarca, which may be related to hypervolemia, hypoproteinemia, or combin ation thereof. LI-RADS Categories: LR-TIV = Tumor in [...] documentation are a vailable online at [email or web address]://[email or web address].org/Clinical-Resources/R hceglvpl-tlg-Wtmm-Systems/LI-RADS. This report utilizes LI-RADS version 2018. Thank you for letting us participate in the care of this patient. For questions regarding this report, please contact [facility] number below. ? Narrative 04/15/2020 7:46 AM EDT EXAMINATION: MRI ABDOMEN WWO CONTRAST (GENERIC) CLINICAL HISTORY: 39-year-old female wit h alcoholic cirrhosis. ??Presented with prepyloric peptic ulcer disease with acu te gastrointestinal hemorrhage. ??Limited ability to the hepatic veins on sonograp hy. ??Clinical concern for hepatic venoocclusive disease and thrombus. TECHNIQUE: MRI of the abdomen was perfor med with images obtained prior to and following the intravenous administration of 13 ml Dotarem. COMPARISON: No prior MRI of the abdomen is provided for comparison. ??Correlation is made to ultrasound of the abdomen juan ed April 13, [address] of the abdomen and pelvis dated April 09. FINDINGS: Limitations: Respiratory motion artifact limits evaluation. ??Respiratory motion artifact is most pronounced on the postc ontrast images, which are essentially nondiagnostic. ??Additionally, susceptib ility artifact from recently placed endovascular occluding devices within e gastroduodenal artery limits evaluation within the left lobe of the l iver, duodenum, and other adjacent structures. Film Booker Images: Noncontributory. Prior hepatic interventions: None. Liver Morphology: The liver is enlarged with a craniocaudad dimension of 21.1 cm. ??There is asymmetric signal dropout on out of phase images, predominantly involving the left lobe of the liver, wh ich corresponds to abnormalities as seen on recent prior CT. ??There is similar, but less pronounced dropout within the posterior and inferior aspect of the rig ht lobe of the liver. Focal hepatic lesions: No focal hepatic lesions are identified within the significantly limited examination. Portal Vein: Respiratory motion artifact significantly limits evaluation. Within the limits of the examination, th e main portal vein and left and right hepatic veins are patent. ??Evaluation f or partial thrombosis is nondiagnostic. Hepatic Veins: Respiratory motion artifa ct significantly limits evaluation. Within the limits of the examination, th e dominant hepatic veins are patent. Evaluation for partial thrombosis is non diagnostic. Varices: None. Ascites: There is edema throughout the m esentery with a small volume of free pelvic fluid. Spleen: Normal size, no lesions. Lower chest: There are new from prior sm all bilateral pleural effusions with associated compressive atelectasis. ??Ca rdiac size is at the upper limits of normal. Bile ducts: Normal. Gallbladder: The gallbladder is normal i n size. ??There is no cholelithiasis. There is edema tracking from the mesente ry into the gallbladder fossa. ??There is no gallbladder thickening. Pancreas: Where visualized, normal. Adrenals: Normal. ??The Kidneys: Normal. Vasculature: The aorta is normal in cour se and caliber. ??The inferior vena cava is normal in course and caliber. ??As no wayne above, respiratory motion artifact significantly limits evaluation of other vascular structures. Lymph nodes: There are no pathologically enlarged lymph nodes. Bowel: The distal esophagus is unremarka ble. ??The distal stomach and proximal duodenum are obscured by susceptibility artifact. ??Where visualized, the stomach is partially distended and is otherwise unremarkable. ??The remainder of the duodenum is unremarkable. ??Visualized a spects of the small bowel are unremarkable. ??Visualized aspects of th e large bowel are unremarkable. Marrow Signal: Osseous marrow signal is within normal limits. Body wall: There has been interval devel opment of diffuse anasarca. Procedure Note Milo Steve, DO - 04/15/2020Formatti ng of this note might be different from the original. EXAMINATION: MRI ABDOMEN WWO CONTRAST (G ENERIC) CLINICAL HISTORY: 39-year-old female wit h alcoholic cirrhosis. Presented with prepyloric peptic ulcer disease with acu te gastrointestinal hemorrhage. Limited ability to the hepatic veins on sonograp hy. Clinical concern for hepatic venoocclusive disease and thrombus. TECHNIQUE: MRI of the abdomen was perfor med with images obtained prior to and following the intravenous administration of 13 ml Dotarem. COMPARISON: No prior MRI of the abdomen is provided for comparison. Correlation is made to ultrasound of the abdomen juan ed April 13, [address] of the abdomen and pelvis dated April 09. FINDINGS: Limitations: Respiratory motion artifact limits evaluation. Respiratory motion artifact is most pronounced on the postc ontrast images, which are essentially nondiagnostic. Additionally, susceptibil ity artifact from recently placed endovascular occluding devices within th e gastroduodenal artery limits evaluation within the left lobe of the l iver, duodenum, and other adjacent structures. Film Booker Images: Noncontributory. Prior hepatic interventions: None. Liver Morphology: The liver is enlarged with a craniocaudad dimension of 21.1 cm. There is asymmetric signal dropout o n out of phase images, predominantly involving the left lobe of the liver, wh ich corresponds to abnormalities as seen on recent prior CT. There is similar, bu t less pronounced dropout within the posterior and inferior aspect of the rig ht lobe of the liver. Focal hepatic lesions: No focal hepatic lesions are identified within the significantly limited examination. Portal Vein: Respiratory motion artifact significantly limits evaluation. Within the limits of the examination, th e main portal vein and left and right hepatic veins are patent. Evaluation for partial thrombosis is nondiagnostic. Hepatic Veins: Respiratory motion artifa ct significantly limits evaluation. Within the limits of the examination, th e dominant hepatic veins are patent. Evaluation for partial thrombosis is non diagnostic. Varices: None. Ascites: There is edema throughout the m esentery with a small volume of free pelvic fluid. Spleen: Normal size, no lesions. Lower chest: There are new from prior sm all bilateral pleural effusions with associated compressive atelectasis. Card iac size is at the upper limits of normal. Bile ducts: Normal. Gallbladder: The gallbladder is normal i n size. There is no cholelithiasis. There is edema tracking from the mesente ry into the gallbladder fossa. There is no gallbladder thickening. Pancreas: Where visualized, normal. Adrenals: Normal. The Kidneys: Normal. Vasculature: The aorta is normal in cour se and caliber. The inferior vena cava is normal in course and caliber. As note d above, respiratory motion artifact significantly limits evaluation of other vascular structures. Lymph nodes: There are no pathologically enlarged lymph nodes. Bowel: The distal esophagus is unremarka ble. The distal stomach and proximal duodenum are obscured by susceptibility artifact. Where visualized, the stomach is partially distended and is otherwise unremarkable. The remainder of the duodenum is unremarkable. Visualized asp ects of the small bowel are unremarkable. Visualized aspects of the large bowel are unremarkable. Marrow Signal: Osseous marrow signal is within normal limits. Body wall: There has been interval devel opment of diffuse anasarca. IMPRESSION 1. Significantly limited examination, as detailed above. 2. Hepatomegaly = 21.1 cm. 3. Multifocal hepatic steatosis, most pr onounced within the left hepatic lobe. Within the limits of the examination, no focal suspicious hepatic lesions. If screening for cirrhotic changes / hepato cellular carcinoma is required, future evaluations should be with CT of the Abd omen (Hepatic Protocol - without and with intravenous contrast) given signifi cant respiratory motion artifact and susceptibility artifact from endovascula r occluding devices. 4. Respiratory motion artifact is most p ronounced on postcontrast images. The hepatic veins and portal veins are paten t; however, evaluation for partial thrombosis is nondiagnostic. 5. Interval increase but still small asc ites, predominantly within the pelvis. Increase in edema throughout the mesente ry. 6. New small bilateral pleural fluid wit h associated compressive atelectasis. 7. Interval development of diffuse anasa rca, which may be related to hypervolemia, hypoproteinemia, or combin ation thereof. LI-RADS Categories: LR-TIV = Tumor in [...] documentation are a vailable online at [email or web address]://[email or web address].org/Clinical-Resources/R athsyuev-foi-Cwtf-Systems/LI-RADS. This report utilizes LI-RADS version 2018. Thank you for letting us participate in the care of this patient. For questions regarding this report, please contact th e number below. Electronically signed by: Milo Steve DO, [facility] ([phone]), at 04/15/2020 7:46 AM Ashli Llamas MD IMG MRI ORDERABLES Immunoglobulins, Quantitative (04/14/2020 4:50 PM EDT) athologist Signature IgG 1,008 700 - 1,600 [facility] mg/dL [facility] LABORATORY Comment: Pediatric Reference Intervals obtained f rom the Caliper Reference Interval project. http://www.sickkids.ca/caliperp roject/index.html IgA 258 70 - 400 mg/dL [facility] LABORATORY IgM 153 40 - 230 mg/dL [facility] LABORATORY Specimen Anatomical Collection Method Collection Time Receive d Time (Source) Location / / Volume Laterality Blood specimen 04/14/2020 4:50 PM 020 5:02 (specimen) EDT PM EDT Resulting Agency Comment Spec In Lab Ashli Llamas MD CHEMISTRY ORDERABLES Performing Organization Address City/State/ZIP Code Phon e Number [address] A1AT Serum Concentration (04/14/2020 4:50 PM EDT) P athologist Signature A1AT 155 90 - 200 [facility] mg/dL [facility] LABORATORY Specimen Anatomical Collection Method Collection Time Receive d Time (Source) Location / / Volume Laterality Blood specimen 04/14/2020 4:50 PM 020 5:02 (specimen) EDT PM EDT Resulting Agency Comment Spec In Lab Ashli Llamas MD CHEMISTRY ORDERABLES Performing Organization Address City/[facility]/ZIP Code Phon e Number [address] HIV Screen, 4th Generation ([facility]/CGP/APD) (04/14/2020 4:50 PM EDT) Analysis Performed At Patho logist Time Signature HIV-1/2 Ab and Negative Negative [facility] LABORATORY Comment: This 4th Generation HIV test screens for the presence of the HIV-1 p24 antigen as well as antibodies reactive against H IV-1 and HIV-2. A negative screen does not rule out an acute HIV infection. If acute HIV infection is suspected, testing should be repeated in 2 - 3 week s or HIV nucleic acid testing performed. Specimen Anatomical Collection Method Collection Time Receive d Time (Source) Location / / Volume Laterality Blood specimen 04/14/2020 4:50 PM 020 5:02 (specimen) EDT PM EDT Resulting Agency Comment Spec In Lab Ashli Llamas MD IMMUNOLOGY ORDERABLES Performing Organization Address City/State/ZIP Code Phon e Number [address] Iron and TIBC (04/14/2020 4:50 PM EDT) Patholo gist Method Time Signature Iron 37 30 - 150 [place] mcg/dL [facility] LABORATORY TIBC Not Calculated 250 - 450 [place] mcg/dL [facility] LABORATORY Iron Not Calculated 20 - 50 % [place] Saturation [facility] LABORATORY Specimen Anatomical Collection Method Collection Time Receive d Time (Source) Location / / Volume Laterality Blood specimen 04/14/2020 4:50 PM 020 5:02 (specimen) EDT PM EDT Resulting Agency Comment Spec In Lab Ashli Llamas MD CHEMISTRY ORDERABLES Performing Organization Address City/[facility]/ZIP Code Phon e Number [address] Tissue transglutaminase, IgA (04/14/2020 4:50 PM EDT) athologist Signature TTG IgA Ab 0.6 0.1 - 10.0 [facility] u/ml [facility] LABORATORY Comment: Negative = <7 U/mL Equivocal = 7-10 U/mL Positive = >10 U/mL Specimen Anatomical Collection Method Collection Time Receive d Time (Source) Location / / Volume Laterality Blood specimen 04/14/2020 4:50 PM 020 7:12 (specimen) EDT AM EDT Resulting Agency Comment Spec In Lab Ashli Llamas MD IMMUNOLOGY ORDERABLES Performing Organization Address [facility]/ZIP Code Phon e Number [address] Liver/Kidney Microsome Type 1 Antibody (04/14/2020 4:50 PM EDT) athologist Signature Marcelina/Kid Mirco1 <5.0 <=20.0 [facility] (Negative) [facility] LABORATORY Comment: Test Performed by: [facility] [address] [address] Local [employer]er Truck Driver: Ronald Yaadv M.D. Ph. D.; CLIA# [id number] Specimen Anatomical Collection Method Collection Time Receive d Time (Source) Location / / Volume Laterality Blood specimen 04/14/2020 4:50 PM 020 4:06 (specimen) EDT PM EDT Resulting Agency Comment Spec In Lab Ashli Llamas MD IMMUNOLOGY ORDERABLES Performing Organization Address City/[facility]/ZIP [facility] Phon e Number [address] Mitochondrial Antibody, M2 (04/14/2020 4:50 PM EDT) athologist Signature Mitochon Ab <0.1 <0.1 [facility] (Negative) [facility] LABORATORY Comment: Test Performed by: [facility] [address] [address] [place] [address] Local Tanker Truck Driver: Ronald Yadav M.D. Ph. D.; CLIA# [id number] Specimen Anatomical Collection Method Collection Time Receive d Time (Source) Location / / Volume Laterality Blood specimen 04/14/2020 4:50 PM 020 4:06 (specimen) EDT PM EDT Resulting Agency Comment Spec In Lab Ashli Llamas MD IMMUNOLOGY ORDERABLES Performing Organization Address City/[facility]/ZIP Code Phon e Number [address] Smooth Muscle Antibody (04/14/2020 4:50 PM EDT) athologist Signature Sm Muscle Ab Negative Negative [facility] LABORATORY Comment: ADDITIONAL INFORMATIO N This test was developed and its performa nce characteristics determined by [facility] in a manner co nsistent with CLIA requirements. This test has not been jerrod ared or approved by the U.S. Food and Drug Administration. Test Performed by: [facility] [place] [address] Local Tanker Truck Driver: Ronald Yadav M.D. Ph. D.; CLIA# [id number] Specimen Anatomical Collection Method Collection Time Receive d Time (Source) Location / / Volume Laterality Blood specimen 04/14/2020 4:50 PM 020 4:06 (specimen) EDT PM EDT Resulting Agency Comment Spec In Lab Ashli Llamas MD IMMUNOLOGY ORDERABLES Performing Organization Address City/[facility]/ZIP Code Phon e Number [address] OXANA ([facility]/CGP) (04/14/2020 4:50 PM EDT) athologist Signature OXANA Neg Neg [facility] LABORATORY Comment: Anti-nuclear antibodies were te sted using an indirect immunofluorescent assay. Specimen Anatomical Collection Method Collection Time Receive d Time (Source) Location / / Volume Laterality Blood specimen 04/14/2020 4:50 PM 020 7:12 (specimen) EDT AM EDT Resulting Agency Comment Spec In Lab Ashli Llamas MD IMMUNOLOGY ORDERABLES Performing Organization Address City/[facility] Phon e Number [address] Ceruloplasmin (04/14/2020 4:50 PM EDT) athologist Signature Ceruloplasmin 19.7 16.0 - [place] 45.0 mg/dL [facility] LABORATORY Specimen Anatomical Collection Method Collection Time Receive d Time (Source) Location / / Volume Laterality Blood specimen 04/14/2020 4:50 PM 020 5:02 (specimen) EDT PM EDT Resulting Agency Comment Spec In Lab Ashli Llamas MD CHEMISTRY ORDERABLES Performing Organization Address [facility] Phon e Number [address] Silica Clotting Time (04/14/2020 10:11 AM EDT) athologist Signature Silica 0.88 <=1.16 [place] Clotting Time ratio [facility] LABORATORY Comment: A result greater than 1.16 TR is consist ent with the presence of lupus anticoagulant. Values of 1.16 to 1.24 in this assay are not definitively positive or negative for the presence of a lupus anticoagulant. The SCT ratio may be falsely elevated in patients on a nticoagulants, especially heparins and direct oral anticoagulants. An abnormal test result in an anticoagulated patient must therefore be interpreted wi th caution, and repeat testing after discontinuing anticoagulation may be shahida ropriate. Specimen Anatomical Collection Method Collection Time Receive d Time (Source) Location / / Volume Laterality Blood specimen 04/14/2020 10:11 0 (specimen) AM EDT 10:25 AM EDT Resulting Agency Comment Spec In Lab Germain Baker Jr., MD HEMATOLOGY ORDERABLES Performing Organization Address City/[facility] Phon e [place] [address] dRVVT (04/14/2020 10:11 AM EDT) athologist Signature dRVVT 0.82 <=1.20 [facility] IU/mL [facility] LAB[facility]ATORY Comment: A result greater than 1.20 TR is consist ent with the presence of lupus anticoagulant. Values of 1.20 to 1.30 in this assay are not definitively positive or negative for the presence of a lupus anticoagulant. The DRVVT ratio may be falsely elevated in patients on a nticoagulants, especially heparins and direct oral anticoagulants. An abnormal test result in an anticoagulated patient must therefore be interpreted wi th caution, and repeat testing after discontinuing anticoagulation may be shahida ropriate. Specimen Anatomical Collection Method Collection Time Receive d Time (Source) Location / / Volume Laterality Blood specimen 04/14/2020 10:11 0 (specimen) AM EDT 10:25 AM EDT Resulting Agency Comment Spec In Lab Germain Baker Jr., MD HEMATOLOGY ORDERABLES Performing Organization Address City/[facility]/[place] [address] (ABNORMAL) Potassium (04/14/2020 8:11 AM EDT) athologist Signature Potassium 3.3 (L) 3.5 - 5.0 [facility] mmol/L [facility]ORY Comment: Please note: ??Patients with WBC >100,00 0 may have falsely elevated Potassium levels. ??For accurate Potassium quantif ication in these patients send serum separator tube (gold top) for subsequent determinations. ??Contact the Clinical Chemistry Laboratory if there are any qu estions. Specimen Anatomical Collection Method Collection Time Receive d Time (Source) Location / / Volume Laterality Blood specimen 04/14/2020 8:11 AM 020 8:38 (specimen) EDT AM EDT Resulting Agency Comment Spec In Lab Muriel Xie MD CHEMISTRY ORDERABLES Performing Organization Address City/[facility]/Z[place] [address] (ABNORMAL) Hemogram (04/14/2020 8:11 AM EDT) [facility] Method Time Signature WBC 7.9 4.0 - 9.5 [facility] x[facility](3[facility] LABORATORY RBC 3.15 (L) 4.00 - [place] DIEGORODOLFO 5.21 [facility] x10(6)/[facility] LABORATORY Hemoglobin 9.7 (L) 11.7 - [place] 15.5 gm/dL [facility] LABORATORY Hematocrit 28.4 (L) 35.7 - [facility] 45.8 % [facility] LABORATORY MCV 90.2 82.6 - [facility] 94.4 [facility] LABORATORY MCH 30.8 27.1 - [place] 32.0 pg [facility] LABORATORY MCHC 34.2 31.7 - [facility] 35.0 gm/dL [facility] LABORATORY Platelets 121 (L) 145 - 357 [facility] x10(3)/[facility] LABORATORY RDWSD 57.5 (H) 37.0 - [facility] 46.0 [facility] LABORATORY RDWCV 17.7 (H) 11.5 - [facility] 14.1 % [facility] LABORATORY MPV 10.9 7.6 - 12.9 [facility] LABORATORY nRBC % Auto 0.4 % [facility] LABORATORY nRBC Abs Auto 0.030 (H) 0.000 - [place] DIEGORODOLFO 0.000 [facility] x10(3)/[facility] LABORATORY Specimen Anatomical Collection Method Collection Time Receive d Time (Source) Location / / Volume Laterality Blood specimen 04/14/2020 8:11 AM 020 8:38 (specimen) EDT AM EDT Resulting Agency Comment Spec In Lab Ashli Llamas MD HEMATOLOGY ORDERABLES Performing Organization Address City/State/[place] [address] ABORH Recheck Status (04/14/2020 1:20 AM EDT) [facility] Method Time Signature ABORH Type Completed [facility] LABORATORY Specimen Anatomical Collection Method Collection Time Receive d Time (Source) Location / / Volume Laterality Blood specimen 04/14/2020 1:20 AM 020 1:28 (specimen) EDT AM EDT Resulting Agency Comment Spec In Lab Jossy Alfaro MD BLOOD BANK ORDERABLES Performing Organization Address City/[facility]/ZIP Code Phon e Number [address] [address] Antibody screen (04/14/2020 1:20 AM EDT) Patholo gist Method Time Signature Ab Screen Negative [facility] LABORATORY Expires at 04/17/2020 [facility] [id number] on: [facility] LABORATORY Specimen Anatomical Collection Method Collection Time Receive d Time (Source) Location / / Volume Laterality Blood specimen 04/14/2020 1:20 AM 020 1:28 (specimen) EDT AM EDT Resulting Agency Comment Spec In Lab Jossy Alfaro MD BLOOD BANK ORDERABLES Performing Organization Address City/[facility]/ZIP Code Phon e Number [address] ABO/Rh Typing (04/14/2020 1:20 AM EDT) athologist Signature ABORh Type A Pos [facility] LABORATORY Specimen Anatomical Collection Method Collection Time Receive d Time (Source) Location / / Volume Laterality Blood specimen 04/14/2020 1:20 AM 020 1:28 (specimen) EDT AM EDT Resulting Agency Comment Spec In Lab Jossy Alfaro MD BLOOD BANK ORDERABLES Performing Organization Address City/[facility]/ZIP [place] [address] (ABNORMAL) Hepatic Function Panel (04/14/2020 1:20 AM EDT) P athologist Signature Total Protein 4.5 (L) 6.1 - 8.0 [facility] gm/dL [facility] LABORATORY Albumin 2.2 (L) 3.2 - 5.2 [facility] gm/dL [facility] LABORATORY AST 90 (H) 0 - 30 [facility] unit/L [facility] LABORATORY ALT 20 0 - 30 [facility] unit/L [facility] LABORATORY Alk Phos 84 35 - 105 [facility] unit/L [facility] LABORATORY Total 7.7 (H) 0.2 - 1.3 [facility] Bilirubin mg/dL [facility] LABORATORY Bili, Direct 7.2 (H) 0.0 - 0.3 [facility] LABORATORY Specimen Anatomical Collection Method Collection Time Receive d Time (Source) Location / / Volume Laterality Blood specimen 04/14/2020 1:20 AM 020 1:28 (specimen) EDT AM EDT Resulting Agency Comment Spec In Lab Ashli Llamas MD CHEMISTRY ORDERABLES Performing Organization Address City/State/[place] [address] (ABNORMAL) Basic Metabolic Panel (non-fasting) (04/14/2020 1:20 AM EDT) athologist Signature Glucose Lvl 95 65 - 199 [facility] mg/dL [facility] LABORATORY Comment: Diabetes: >=200 mg/dL plus symp toms BUN 14 8 - 18 mg/dL [facility] LABORATORY Creatinine 0.63 (L) 0.70 - 1.20 mg/dL [facility] LABORATORY Sodium 141 135 - 145 mmol/L [facility] LABORATORY Potassium 3.2 (L) 3.5 - 5.0 mmol/L [facility] LABORATORY Comment: Please note: ??Patients with WBC >100,00 0 may have falsely elevated Potassium levels. ??For accurate Potassium quantif ication in these patients send serum separator tube (gold top) for subsequent determinations. ??Contact the Clinical Chemistry Laboratory if there are any qu estions. Chloride 107 98 - 107 mmol/L [facility] LABORATORY CO2 26 22 - 31 mmol/L [facility] LABORATORY Anion Gap 8 5 - 15 mmol/L [facility] LABORATORY Calcium 7.4 (L) 8.5 - 10.5 mg/dL [facility] LABORATORY Estimated GFR 111 >=60 mL/min/1.73 m?? [facility] LABORATORY Comment: The eGFR was calculated using the CKD-EP I equation. As with all creatinine based estimates of kidney function, eGFR values calculated with the CKD-EPI equation are not accurate in patients wi th acute kidney failure, extremes of body mass or the acutely ill. [email or web address] CITYnk[facility] eGFR 129 >=60 mL/min/1.73 m?? [facility] LABORATORY Comment: The eGFR was calculated using the CKD-EP I equation. As with all creatinine based estimates of kidney function, eGFR values calculated with the CKD-EPI equation are not accurate in patients wi th acute kidney failure, extremes of body mass or the acutely ill. [email or web address] CITY[facility]f Specimen Anatomical Collection Method Collection Time Receive d Time (Source) Location / / Volume Laterality Blood specimen 04/14/2020 1:20 AM 020 1:28 (specimen) EDT AM EDT Resulting Agency Comment Spec In Lab Ashli Llamas MD CHEMISTRY ORDERABLES Performing Organization Address City/[facility]/ZIP Code Phon e Number [address] (ABNORMAL) Fibrinogen (04/14/2020 1:20 AM EDT) athologist Signature Fibrinogen 178 (L) 200 - 393 [facility] mg/dL [facility] LABORATORY Comment: A fibrinogen level >100 mg/dL is adequat e for hemostasis in most patients without underlying bleeding disorders. Specimen Anatomical Collection Method Collection Time Receive d Time (Source) Location / / Volume Laterality Blood specimen 04/14/2020 1:20 AM 020 1:28 (specimen) EDT AM EDT Resulting Agency Comment Spec In Lab Ashli Llamas MD HEMATOLOGY ORDERABLES Performing Organization Address City/[facility]/ZIP [place] [address] XR Chest One View (04/13/2020 11:54 PM EDT) Anatomical Region Laterality Modality Chest N/A Digital Radiography Specimen (Source) Anatomical Location Collection Method / Collectio n Time Received Time / Laterality Volume Impressions 04/13/2020 11:58 PM EDT FINDINGS/IMPRESSION: RIGHT central catheter tip projects over the mid SVC. Pulmonary edema. Possible small pleural effusions and/or bibasilar atelectasis. No pneumothorax seen. Prominent cardiomediastinal silhouette, nonspecific given technique/positioning. Thank you for letting us participate in the care of this patient. For questions regarding this report, please contact e number below. ? Electronically signed by: Corby Godoy MD, [facility] ([phone]), at 04/13/2020 11:58 PM Narrative 04/13/2020 11:58 PM EDT EXAMINATION: XR CHEST ONE VIEW CLINICAL HISTORY: line placement TECHNIQUE: 1 view of the chest COMPARISON: 04/11/2020 Procedure Note Corby Godoy MD - 04/14/2020 EXAMINATION: XR CHEST ONE VIEW CLINICAL HISTORY: line placement TECHNIQUE: 1 view of the chest COMPARISON: 04/11/2020 IMPRESSION FINDINGS/IMPRESSION: RIGHT central catheter tip projects over the mid SVC. Pulmonary edema. Possible small pleural effusions and/or bibasilar atelectasis. No pneumothorax seen. Prominent cardiomediastinal silhouette, nonspecific given technique/positioning. Thank you for letting us participate in the care of this patient. For questions regarding this report, please contact e number below. Electronically signed by: Corby Godoy MD, [facility] ([phone]), at 04/13/2020 11:58 PM Murielravinder Xie MD IMG DX ORDERABLES (ABNORMAL) Hemogram (04/13/2020 8:10 PM EDT) [facility] Method Time Signature WBC 11.5 (H) 4.0 - 9.5 [facility] LABORATORY RBC 3.50 (L) 4.00 [facility] 5.21 [facility] x10(6)/[facility] LABORATORY Hemoglobin 10.7 (L) 11.7 - [facility] 15.5 gm/dL [facility] LABORATORY Hematocrit 32.0 (L) 35.7 - [facility] 45.8 % [facility] LABORATORY MCV 91.4 82.6 - [facility] 94.4 [facility] LABORATORY MCH 30.6 27.1 - [facility] 32.0 pg [facility] LABORATORY MCHC 33.4 31.7 - [facility] 35.0 gm/dL [facility] LABORATORY Platelets 141 (L) 145 - 357 [facility] x10(3[facility] LABORATORY RDWSD 58.3 (H) 37.0 - [facility] 46.0 [facility] LABORATORY RDWCV 17.8 (H) 11.5 - [facility] 14.1 % [facility] LABORATORY MPV 11.1 7.6 - 12.9 [facility] LABORATORY nRBC % Auto 0.3 % [facility] LABORATORY nRBC Abs Auto 0.040 (H) 0.000 - [facility] 0.000 [facility] x10(3)/[facility] LABORATORY Specimen Anatomical Collection Method Collection Time Receive d Time (Source) Location / / Volume Laterality Blood specimen 04/13/2020 8:10 PM 020 8:27 (specimen) EDT PM EDT Resulting Agency Comment Spec In Lab Ashli Llamas MD HEMATOLOGY ORDERABLES Performing Organization Address City/State/Z[place] [address] US Abdomen Vascular Limited Hepatology Protocol (04/13/2020 11:26 AM EDT) Anatomical Region Laterality Modality Abdomen Ultrasound Specimen (Source) Anatomical Collection Method Collection Time Re ceived Time Location / / Volume Laterality 04/13/2020 11:27 AM EDT Impressions 04/13/2020 12:40 PM EDT 1. No flow detected in the proximal rigoberto n portal vein. This finding may either be secondary to slow flow below the sensitivity of ultrasound or due to thrombosis. Of note, the portal venous system was found to be patent on the CT scan perfo rmed 04/09/2020. Multiphasic MRI liver lesion protocol h ad been recommended to evaluate for focal liver lesions, and such a study would provide another oppo rtunity to evaluate the patency of the portal veno us system. 2. Hepatofugal flow within the distal a nd mid main portal vein and the right and left port al veins, compatible with portal venous hypertens ion. 3. Thickening of the gallbladder wall t o 6 mm, in the setting of ascites and in the absence o f other signs of acute cholecystitis, more likely to be related to the ascites. The above findings were discussed with Dr. Jossy Alfaro by Dr. Babak Hurst on 0 at 12:30 pm. ?Lulú Sahu, [employer] Electronically Signed Final Report ?? 12:40 pm Narrative 04/13/2020 12:40 PM EDT Abdominal ? (Signed Final 04/13/2020 12:40 pm) PATIENT INFO: ID #: ? [id number] ?: ??[birth year] (39 yrs)(F) Name: ? VIOLET COWAN ? Visit Date: 04/13/2020 11:27 am PERFORMED BY: Performed By: ? Leidy Carter RDMS Attending: ?Lulú Sahu MD Resident: ? Ruiz Hurst MD Referred By: ?MURIEL XIE Location: ? [place] SERVICE(S) PROVIDED: ??[facility] - Hepatology Protocol- Abdomi nal ?[id number], [id number] ??Limited Survey with Vascular - Single Organ or ??Quadrant - [id number] INDICATIONS: ??39 yo alc, acute UGIB, concerning for ??cirrhosis (no prior diagnosis), asses sing also ??for thrombosis COMPARISON: CT 04/09/2020 ------ LIVER: ------ Right Lobe Length: ?? 19.1 ?? cm Echogenicity/Echotexture: ?? Increased in echogenicity Portal Veins: ?Hepatofugal HEPATIC-PORTAL DUPLEX: ? PSV ? Waveform ? (cm/s) Main Portal ? 20.3 ?Abnormal - See Vein: ? discussion ? below Right Portal ?Hepatofugal Vein: Left Portal ? Hepatofugal Vein: ? Dir ection of Flow Main Portal ? Hepatofug al Vein: Comment: ?No flow detec wayne in the proximal main portal ? vein or c olor Doppler or power Doppler ? evaluatio n. GALLBLADDER: Cholelithiasis: ?Sludge Wall Thickness: ?6 mm Focal Tenderness: ?Negative sonogra phic Link's sign Comment: ?Thickened wall in the pre sence of ascites BILIARY TRACT: Intrahepatic Ducts: ?? Normal Extrahepatic Ducts: ?? Normal Common Duct Size: ? 3.0 ? mm ------- SPLEEN: ------- Size (cm) ?L: ??11.9 ?AP: ?? 4.6 ? TV: ??4.2 Vol (ml): ?120.4 Comment: ?Normal appearance FLUID COLLECTIONS: Trace hepatic ascites in RUQ; bilateral trace pleural effusions. Procedure Note Lulú Sahu MD - 04/13/2020Formattin g of this note might be different from the original. Abdominal (Signed Final 04/13/2020 12:4 0 pm) PATIENT INFO: ID #: [id number] : 78 (39 y rs)(F) Name: VIOLET COWAN Visit Date: 11:27 am PERFORMED BY: Performed By: Leidy Carter RDMS Attending: Lulú Sahu MD Resident: Babak Hurst MD Referred By: MURIEL XIE Location: [place] SERVICE(S) PROVIDED: [facility] - Hepatology Protocol- Abdomina l [id number], [id number] Limited Survey with Vascular - Single O rgan or Quadrant - [id number] INDICATIONS: 39 yo alc, acute UGIB, concerning for cirrhosis (no prior diagnosis), assessi ng also for thrombosis COMPARISON: CT 04/09/2020 ------ LIVER: ------ Right Lobe Length: 19.1 cm Echogenicity/Echotexture: Increased in echogenicity Portal Veins: Hepatofugal HEPATIC-PORTAL DUPLEX: PSV Waveform (cm/s) Main Portal 20.3 Abnormal - See Vein: discussion below Right Portal Hepatofugal Vein: Left Portal Hepatofugal Vein: Direction of Flow Main Portal Hepatofugal Vein: Comment: No flow detected in the proxim al main portal vein or color Doppler or power Doppler evaluation. GALLBLADDER: Cholelithiasis: Sludge Wall Thickness: 6 mm Focal Tenderness: Negative sonographic Link's sign Comment: Thickened wall in the presence of ascites BILIARY TRACT: Intrahepatic Ducts: Normal Extrahepatic Ducts: Normal Common Duct Size: 3.0 mm ------- SPLEEN: ------- Size (cm) L: 11.9 AP: 4.6 TV: 4.2 Vol (ml): 120.4 Comment: Normal appearance FLUID COLLECTIONS: Trace hepatic ascites in RUQ; bilateral trace pleural effusions. IMPRESSION 1. No flow detected in the proximal rigoberto n portal vein. This finding may either be secondary to slow flow below the sensitivity of ultrasound or due to thrombosis. Of note, the portal venous system was found to be patent on the CT scan perfo rmed 04/09/2020. Multiphasic MRI liver lesion protocol h ad been recommended to evaluate for focal liver lesions, and such a study would provide another oppo rtunity to evaluate the patency of the portal veno us system. 2. Hepatofugal flow within the distal a nd mid main portal vein and the right and left port al veins, compatible with portal venous hypertens ion. 3. Thickening of the gallbladder wall t o 6 mm, in the setting of ascites and in the absence o f other signs of acute cholecystitis, more likely to be related to the ascites. The above findings were discussed with Dr. Jossy Alfaro by Dr. Babak Hurst on 0 at 12:30 pm. Lulú Sahu, [employer] Electronically Signed Final Report 04/13 12:40 pm Muriel Rojas HERNANDEZ IMG US GEN ORDERABLES (ABNORMAL) Fibrinogen (04/13/2020 5:55 AM EDT) P athologist Signature Fibrinogen 164 (L) 200 - 393 [facility] mg/dL [facility] LABORATORY Comment: A fibrinogen level >100 mg/dL is adequat e for hemostasis in most patients without underlying bleeding disorders. Specimen Anatomical Collection Method Collection Time Receive d Time (Source) Location / / Volume Laterality Blood specimen 04/13/2020 5:55 AM 020 6:11 (specimen) EDT AM EDT Resulting Agency Comment Spec In Lab Muriel Xie MD HEMATOLOGY ORDERABLES Performing Organization Address City/State/[place] [address] (ABNORMAL) Hemogram (04/13/2020 5:55 AM EDT) [facility] gist Method Time Signature WBC 10.7 (H) 4.0 - 9.5 [facility] LABORATORY RBC 3.45 (L) 4.00 - [facility] [place] 5.21 [facility] x10(6)/[facility] LABORATORY Hemoglobin 10.6 (L) 11.7 - [facility] 15.5 gm/dL [facility] LABORATORY Hematocrit 31.3 (L) 35.7 - [facility] 45.8 % [facility] LABORATORY MCV 90.7 82.6 - [facility] 94.4 [facility] LABORATORY MCH 30.7 27.1 - [facility] 32.0 pg [facility] LABORATORY MCHC 33.9 31.7 - [facility] 35.0 gm/dL [facility] LABORATORY Platelets 114 (L) 145 - 357 [facility] x10(3)/[facility] LABORATORY RDWSD 58.3 (H) 37.0 - [facility] 46.0 [facility] LABORATORY RDWCV 18.0 (H) 11.5 - [facility] 14.1 % [facility] LABORATORY MPV 10.9 7.6 - 12.9 [facility] nRBC % Auto 0.2 % [facility] LABORATORY nRBC Abs Auto 0.020 (H) 0.000 - [facility] 0.000 [facility] x10(3)/[facility] LABORATORY Specimen Anatomical Collection Method Collection Time Receive d Time (Source) Location / / Volume Laterality Blood specimen 04/13/2020 5:55 AM 020 6:11 (specimen) EDT AM EDT Resulting Agency Comment Spec In Lab Muriel Xie MD HEMATOLOGY ORDERABLES Performing Organization Address City/State/[place] [address] (ABNORMAL) Fibrinogen (04/13/2020 12:40 AM EDT) P athologist Signature Fibrinogen 159 (L) 200 - 393 [facility] mg/dL [facility] LABORATORY Comment: A fibrinogen level >100 mg/dL is adequat e for hemostasis in most patients without underlying bleeding disorders. Specimen Anatomical Collection Method Collection Time Receive d Time (Source) Location / / Volume Laterality Blood specimen 04/13/2020 12:40 0 (specimen) AM EDT 12:52 AM EDT Resulting Agency Comment Spec In Lab Muriel Xie MD HEMATOLOGY ORDERABLES Performing Organization Address City/State/ZIP Code Phon e Number [address] (ABNORMAL) Hemogram (04/13/2020 12:40 AM EDT) Patholo gist Method Time Signature WBC 11.4 (H) 4.0 - 9.5 [facility] [place] x10(3)/[facility] LABORATORY RBC 3.58 (L) 4.00 - [place] [place] 5.21 [facility] x10(6)/[facility] LABORATORY Hemoglobin 10.8 (L) 11.7 - [facility] [place] 15.5 gm/dL [facility] LABORATORY Hematocrit 32.4 (L) 35.7 - [facility] [place] 45.8 % [facility] LABORATORY MCV 90.5 82.6 - [facility] 94.4 [facility] LABORATORY MCH 30.2 27.1 - [place] [place] 32.0 pg [facility] LABORATORY MCHC 33.3 31.7 - [facility] [place] 35.0 gm/dL [facility] LABORATORY Platelets 115 (L) 145 - 357 [place] [place] x10(3)/[facility] LABORATORY RDWSD 58.2 (H) 37.0 - [facility] [place] 46.0 [facility] LABORATORY RDWCV 18.0 (H) 11.5 - [facility] [place] 14.1 % [facility] LABORATORY MPV 11.1 7.6 - 12.9 [place] [place] LABORATORY nRBC % Auto 0.3 % [facility] LABORATORY nRBC Abs Auto 0.030 (H) 0.000 - [facility] 0.000 [facility] x10(3)/[facility] LABORATORY Specimen Anatomical Collection Method Collection Time Receive d Time (Source) Location / / Volume Laterality Blood specimen 04/13/2020 12:40 0 (specimen) AM EDT 12:52 AM EDT Resulting Agency Comment Spec In Lab Muriel Xie MD HEMATOLOGY ORDERABLES Performing Organization Address City/[facility]/ZIP [place] [address] (ABNORMAL) Prothrombin Time (04/13/2020 12:40 AM EDT) P athologist Signature PT 14.7 (H) 9.4 - 12.5 [facility] LABORATORY INR 1.3 [facility] LABORATORY Comment: An INR <2.0 [...] Location / / Volume Laterality Blood specimen 04/13/2020 12:40 0 (specimen) AM EDT 12:52 AM EDT Resulting Agency Comment Spec In Lab Ashli Llamas MD HEMATOLOGY ORDERABLES Performing Organization Address City/[facility]/ZIP [place] [address] APTT (04/13/2020 12:40 AM EDT) P athologist Signature PTT 37 25 - 37 sec [facility] LABORATORY Comment: The PTT is NOT appropriate for heparin m onitoring. Use the Anti-Xa level for heparin monitoring (HEP UFH) or LMWH mon itoring (HEP LMW). A PTT less than 37 seconds generally indicates adequate hem ostasis. Specimen Anatomical Collection Method Collection Time Receive d Time (Source) Location / / Volume Laterality Blood specimen 04/13/2020 12:40 0 (specimen) AM EDT 12:52 AM EDT Resulting Agency Comment Spec In Lab Ashli Llamas MD HEMATOLOGY ORDERABLES Performing Organization Address City/[facility]/ZIP [place] [address] (ABNORMAL) Hepatic Function Panel (04/13/2020 12:40 AM EDT) athologist Signature Total Protein 4.5 (L) 6.1 - 8.0 [facility] gm/dL [facility] LABORATORY Albumin 2.4 (L) 3.2 - 5.2 [facility] gm/dL [facility] LABORATORY AST 70 (H) 0 - 30 [facility] unit/L [facility] LABORATORY ALT 18 0 - 30 [facility] unit/L [facility] LABORATORY Alk Phos 80 35 - 105 [facility] unit/L [facility] LABORATORY Total 6.9 (H) 0.2 - 1.3 [facility] Bilirubin mg/dL [facility] LABORATORY Bili, Direct 5.8 (H) 0.0 - 0.3 [facility] mg/dL [facility] LABORATORY Specimen Anatomical Collection Method Collection Time Receive d Time (Source) Location / / Volume Laterality Blood specimen 04/13/2020 12:40 0 (specimen) AM EDT 12:52 AM EDT Resulting Agency Comment Spec In Lab Ashli Llamas MD CHEMISTRY ORDERABLES Performing Organization Address City/[facility]/ZIP [place] [address] (ABNORMAL) Basic Metabolic Panel (non-fasting) (04/13/2020 12:40 AM EDT) athologist Signature Glucose Lvl 114 65 - 199 [facility] mg/dL [facility] LAB[facility] Comment: Diabetes: >=200 mg/dL plus symp toms BUN 18 8 - 18 mg/dL [facility] LABORATORY Creatinine 0.59 (L) 0.70 - 1.20 mg/dL [facility] LABORATORY Sodium 142 135 - 145 mmol/L [facility] LABORATORY Potassium 3.5 3.5 - 5.0 mmol/L [facility] LABORATORY Comment: Please note: ??Patients with WBC >100,00 0 may have falsely elevated Potassium levels. ??For accurate Potassium quantif ication in these patients send serum separator tube (gold top) for subsequent determinations. ??Contact the Clinical Chemistry Laboratory if there are any qu estions. Chloride 108 (H) 98 - 107 mmol/L [facility] LABORATORY CO2 25 22 - 31 mmol/L [facility] LABORATORY Anion Gap 9 5 - 15 mmol/L [facility] LABORATORY Calcium 7.3 (L) 8.5 - 10.5 mg/dL [facility] LABORATORY Estimated GFR 114 >=60 mL/min/1.73 m?? [facility] LABORAT[facility] Comment: The eGFR was calculated using the CKD-EP I equation. As with all creatinine based estimates of kidney function, eGFR values calculated with the CKD-EPI equation are not accurate in patients wi th acute kidney failure, extremes of body mass or the acutely ill. [email or web address] eGFR 132 >=60 mL/min/1.73 m?? [facility] LABORATORY Comment: The eGFR was calculated using the CKD-EP I equation. As with all creatinine based estimates of kidney function, eGFR values calculated with the CKD-EPI equation are not accurate in patients wi th acute kidney failure, extremes of body mass or the acutely ill. [email or web address] Specimen Anatomical Collection Method Collection Time Receive d Time (Source) Location / / Volume Laterality Blood specimen 04/13/2020 12:40 0 (specimen) AM EDT 12:52 AM EDT Resulting Agency Comment Spec In Lab Ashli Llamas MD CHEMISTRY ORDERABLES Performing Organization Address City/State/[place] [address] (ABNORMAL) Request For 2nd Read CT Abdomen [...] For questions regarding this report, please contact [facility] number below. ? Electronically signed by: Lizzy Currie, [facility] ([phone]), at 04/13/2020 8:55 AM Narrative 04/13/2020 8:55 AM EDT EXAMINATION: REQUEST FOR 2ND READ CT ABDOMEN AND PELVIS CLINICAL HISTORY: CT A/P with possible c olonic wall edema; What Modality is the exam? CT Scan; Body Part (please add com ments as necessary): abdomen and pelvis; Sending Institution [facility]; Date of exam [id number]; I believe a [...] Galo MD IMG OUTSIDE INTERPRETATION O RDERABLES (ABNORMAL) Fibrinogen (04/12/2020 6:05 PM EDT) athologist Signature Fibrinogen 131 (L) 200 - 393 [facility] mg/dL [facility] Comment: A fibrinogen level >100 mg/dL is adequat e for hemostasis in most patients without underlying bleeding disorders. Specimen Anatomical Collection Method Collection Time Receive d Time (Source) Location / / Volume Laterality Blood specimen 04/12/2020 6:05 PM 020 6:11 (specimen) EDT PM EDT Resulting Agency Comment Spec In Lab Muriel Xie MD HEMATOLOGY ORDERABLES Performing Organization Address City/State/[place] [address] (ABNORMAL) Hemogram (04/12/2020 6:05 PM EDT) [facility] gist Method Time Signature WBC 10.7 (H) 4.0 - 9.5 [facility](3[facility] LABORATORY RBC 3.52 (L) 4.00 - [place] 5.21 [facility] x10(6)/[facility] LABORATORY Hemoglobin 10.8 (L) 11.7 - [facility] 15.5 gm/dL [facility] Hematocrit 31.8 (L) 35.7 - [facility] 45.8 % [facility] MCV 90.3 82.6 - [facility] 94.4 [facility] LABORATORY MCH 30.7 27.1 - [facility] 32.0 pg [facility] MCHC 34.0 31.7 - [facility] 35.0 gm/dL [facility] Platelets 111 (L) 145 - 357 [facility] x10(3)/[facility] LABORATORY RDWSD 57.5 (H) 37.0 - [facility] 46.0 [facility] LABORATORY RDWCV 18.1 (H) 11.5 - [facility] [place] 14.1 % [facility] MPV 10.6 7.6 - 12.9 [facility] LABORATORY nRBC % Auto 0.2 % [facility] nRBC Abs Auto 0.020 (H) 0.000 - [place] 0.000 [facility] x10(3)/[facility] LABORATORY Specimen Anatomical Collection Method Collection Time Receive d Time (Source) Location / / Volume Laterality Blood specimen 04/12/2020 6:05 PM 020 6:11 (specimen) EDT PM EDT Resulting Agency Comment Spec In Lab Muriel Xie MD HEMATOLOGY ORDERABLES Performing Organization Address City/State/[place] [address] (ABNORMAL) Fibrinogen (04/12/2020 1:10 PM EDT) P athologist Signature Fibrinogen 131 (L) 200 - 393 [place] mg/dL [facility] Comment: A fibrinogen level >100 mg/dL is adequat e for hemostasis in most patients without underlying bleeding disorders. Specimen Anatomical Collection Method Collection Time Receive d Time (Source) Location / / Volume Laterality Blood specimen 04/12/2020 1:10 PM 020 1:26 (specimen) EDT PM EDT Resulting Agency Comment Spec In Lab Muriel Xie MD HEMATOLOGY ORDERABLES Performing Organization Address City/State/ZIP Code Phon e Number [address] (ABNORMAL) Hemogram (04/12/2020 1:10 PM EDT) Patholo gist Method Time Signature WBC 10.8 (H) 4.0 - 9.5 [place] x10(3)/[facility] LABORATORY RBC 3.53 (L) 4.00 - [place] 5.21 [facility] x10(6)/[facility] LABORATORY Hemoglobin 10.7 (L) 11.7 - [place] 15.5 gm/dL [facility] Hematocrit 31.4 (L) 35.7 - [place] 45.8 % [facility] MCV 89.0 82.6 - [place] 94.4 [facility] LABORATORY MCH 30.3 27.1 - [place] 32.0 pg [facility] MCHC 34.1 31.7 - [place] 35.0 gm/dL [facility] Platelets 115 (L) 145 - 357 [place] x10(3)/[facility] LABORATORY RDWSD 57.7 (H) 37.0 - [place] 46.0 [facility] LABORATORY RDWCV 18.3 (H) 11.5 - [place] 14.1 % [facility] MPV 10.9 7.6 - 12.9 [place] [facility] LABORATORY nRBC % Auto 0.2 % [facility] nRBC Abs Auto 0.020 (H) 0.000 - [facility] 0.000 [facility] x10(3)/[facility] LABORATORY Specimen Anatomical Collection Method Collection Time Receive d Time (Source) Location / / Volume Laterality Blood specimen 04/12/2020 1:10 PM 020 1:26 (specimen) EDT PM EDT Resulting Agency Comment Spec In Lab Muriel Xie MD HEMATOLOGY ORDERABLES Performing Organization Address City/[facility]/ZIP Code Phon e Number [address] Hepatitis A Antibody, IgM (04/12/2020 1:10 PM EDT) Analysis Performed At Patho logist Time Signature Hepatitis A Negative Negative [facility] LABORATORY Specimen Anatomical Collection Method Collection Time Receive d Time (Source) Location / / Volume Laterality Blood specimen 04/12/2020 1:10 PM 020 1:26 (specimen) EDT PM EDT Resulting Agency Comment Spec In Lab Rajendra Galo MD IMMUNOLOGY ORDERABLES Performing Organization Address City/[facility]/ZIP [place] [address] (ABNORMAL) Fibrinogen (04/12/2020 8:10 AM EDT) P athologist Signature Fibrinogen 123 (L) 200 - 393 [facility] mg/dL [facility] Comment: A fibrinogen level >100 mg/dL is adequat e for hemostasis in most patients without underlying bleeding disorders. Specimen Anatomical Collection Method Collection Time Receive d Time (Source) Location / / Volume Laterality Blood specimen 04/12/2020 8:10 AM 020 8:37 (specimen) EDT AM EDT Resulting Agency Comment Spec In Lab Muriel Xie MD HEMATOLOGY ORDERABLES Performing Organization Address City/[facility]/ZIP Code Phon e Number [address] (ABNORMAL) Hemogram (04/12/2020 8:10 AM EDT) Patholo gist Method Time Signature WBC 16.2 (H) 4.0 - 9.5 [facility] x10(3)/[facility] LABORATORY RBC 3.77 (L) 4.00 - [place] 5.21 [facility] x10(6[facility] LABORATORY Hemoglobin 11.5 (L) 11.7 - [place] [facility] 15.5 gm/dL [facility] Hematocrit 33.6 (L) 35.7 - [place] 45.8 % [facility] MCV 89.1 82.6 - [facility] 94.4 [facility] LABORATORY MCH 30.5 27.1 - [place] [facility] 32.0 pg [facility] MCHC 34.2 31.7 - [place] [facility] 35.0 gm/dL [facility] Platelets 160 145 - 357 [facility] [facility] x10(3)/[facility] LABORATORY RDWSD 56.2 (H) 37.0 - [place] 46.0 [facility] LABORATORY RDWCV 18.1 (H) 11.5 - [facility] [place] 14.1 % [facility] MPV 10.9 7.6 - 12.9 [place] [facility] LABORATORY nRBC % Auto 0.1 % [facility] nRBC Abs Auto 0.020 (H) 0.000 - [place] 0.000 [facility] x10(3)/[facility] LABORATORY Specimen Anatomical Collection Method Collection Time Receive d Time (Source) Location / / Volume Laterality Blood specimen 04/12/2020 8:10 AM 020 8:37 (specimen) EDT AM EDT Resulting Agency Comment Spec In Lab Muriel Xie MD HEMATOLOGY ORDERABLES Performing Organization Address City/State/[place] [address] POCT Glucose (04/12/2020 4:16 AM EDT) P athologist Signature POC Glucose 135 65 - 199 [facility]dL [facility] Comment: Supplemental ranges: <140 mg/dL before meals <180 mg/dL all other times of the day Specimen Anatomical Collection Method Collection Time Receive d Time (Source) Location / / Volume Laterality Blood specimen 04/12/2020 4:16 AM 020 4:16 (specimen) EDT AM EDT Rajendra Galo MD POINT OF CARE TEST ORDERABLE S Performing Organization Address [facility]/ZIP [facility] [place] [address] (ABNORMAL) Fibrinogen (04/12/2020 4:15 AM EDT) P athologist Signature Fibrinogen 128 (L) 200 - 393 [facility] mg/dL [facility] Comment: A fibrinogen level >100 mg/dL is adequat e for hemostasis in most patients without underlying bleeding disorders. Specimen Anatomical Collection Method Collection Time Receive d Time (Source) Location / / Volume Laterality Blood specimen 04/12/2020 4:15 AM 020 4:27 (specimen) EDT AM EDT Resulting Agency Comment Spec In Lab Muriel Xie MD HEMATOLOGY ORDERABLES Performing Organization Address [facility] [place] [address] (ABNORMAL) APTT (04/12/2020 4:15 AM EDT) P athologist Signature PTT 38 (H) 25 - 37 sec [facility] Comment: The PTT is NOT appropriate for heparin m onitoring. Use the Anti-Xa level for heparin monitoring (HEP UFH) or LMWH mon itoring (HEP LMW). A PTT less than 37 seconds generally indicates adequate hem ostasis. Specimen Anatomical Collection Method Collection Time Receive d Time (Source) Location / / Volume Laterality Blood specimen 04/12/2020 4:15 AM 020 4:27 (specimen) EDT AM EDT Resulting Agency Comment Spec In Lab Muriel Xie MD HEMATOLOGY ORDERABLES Performing Organization Address City/[facility]/[place] [address] (ABNORMAL) Prothrombin Time (04/12/2020 4:15 AM EDT) P athologist Signature PT 18.5 (H) 9.4 - 12.5 [facility] LABORATORY INR 1.6 [facility] Comment: An INR <2.0 [...] Location / / Volume Laterality Blood specimen 04/12/2020 4:15 AM 020 4:27 (specimen) EDT AM EDT Resulting Agency Comment Spec In Lab Muriel Xie MD HEMATOLOGY ORDERABLES Performing Organization Address City/State/[place] [address] (ABNORMAL) Hemogram (04/12/2020 4:15 AM EDT) Analysis Performed At Patho logist Time Signature WBC 18.4 (H) 4.0 - 9.5 [place] x10(3)/[facility] LABORATORY RBC 3.90 (L) 4.00 - [place] 5.21 [facility] x10(6)/[facility] LABORATORY Hemoglobin 11.8 11.7 - [place] 15.5 gm/dL [facility] Hematocrit 34.6 (L) 35.7 - [place] 45.8 % [facility] MCV 88.7 82.6 - [place] 94.4 [facility] LABORATORY MCH 30.3 27.1 - [place] 32.0 pg [facility] MCHC 34.1 31.7 - [place] 35.0 gm/dL [facility] Platelets 193 145 - 357 [place] x10(3)/[facility] LABORATORY RDWSD 54.9 (H) 37.0 - [place] 46.0 [facility] LABORATORY RDWCV 17.6 (H) 11.5 - [facility] 14.1 % [facility] MPV 11.1 7.6 - 12.9 [facility] [place] LABORATORY nRBC % Auto 0.0 % [facility] nRBC Abs Auto 0.000 0.000 - [place] 0.000 [facility] x10(3)/[facility] LABORATORY Specimen Anatomical Collection Method Collection Time Receive d Time (Source) Location / / Volume Laterality Blood specimen 04/12/2020 4:15 AM 020 4:27 (specimen) EDT AM EDT Resulting Agency Comment Spec In Lab Muriel Xie MD HEMATOLOGY ORDERABLES Performing Organization Address City/[facility]/[place] [address] (ABNORMAL) Hepatic Function Panel (04/12/2020 2:45 AM EDT) athologist Signature Total Protein 4.7 (L) 6.1 - 8.0 [facility] [place] gm/dL [facility] Albumin 2.5 (L) 3.2 - 5.2 [facility] [place] gm/dL [facility] AST 69 (H) 0 - 30 [facility] [place] unit/L [facility] ALT 16 0 - 30 [facility] unit/L [facility] Alk Phos 87 35 - 105 [facility] unit/L [facility] Total 4.6 (H) 0.2 - 1.3 [facility] [place] Bilirubin mg/dL [facility] Bili, Direct 3.7 (H) 0.0 - 0.3 [facility] [place] mg/dL [facility] Specimen Anatomical Collection Method Collection Time Receive d Time (Source) Location / / Volume Laterality Blood specimen 04/12/2020 2:45 AM 020 3:12 (specimen) EDT AM EDT Resulting Agency Comment Spec In Lab Ashli Llamas MD CHEMISTRY ORDERABLES Performing Organization Address City/[facility]/[place] [address] (ABNORMAL) Basic Metabolic Panel (non-fasting) (04/12/2020 2:45 AM EDT) athologist Signature Glucose Lvl 158 65 - 199 [facility] mg/dL [facility] Comment: Diabetes: >=200 mg/dL plus symp toms BUN 22 (H) 8 - 18 mg/dL [facility] Creatinine 0.83 0.70 - 1.20 mg/dL [facility] Sodium 141 135 - 145 mmol/L [facility] Potassium 3.7 3.5 - 5.0 mmol/L [facility] Comment: Please note: ??Patients with WBC >100,00 0 may have falsely elevated Potassium levels. ??For accurate Potassium quantif ication in these patients send serum separator tube (gold top) for subsequent determinations. ??Contact the Clinical Chemistry Laboratory if there are any qu estions. Chloride 108 (H) 98 - 107 mmol/L [facility] CO2 22 22 - 31 mmol/L [facility] Anion Gap 11 5 - 15 mmol/L [facility] Calcium 6.9 (Critical) 8.5 - 10.5 mg/dL [facility] Comment: Result rechecked. Called by: dion, Read back by: Marilee saleh, Date/Time:04/12/20 03:53. Estimated GFR 88 >=60 mL/min/1.73 m?? [facility] Comment: The eGFR was calculated using the CKD-EP I equation. As with all creatinine based estimates of kidney function, eGFR values calculated with the CKD-EPI equation are not accurate in patients wi th acute kidney failure, extremes of body mass or the acutely ill. [email or web address] eGFR 102 >=60 mL/min/1.73 m?? [facility] Comment: The eGFR was calculated using the CKD-EP I equation. As with all creatinine based estimates of kidney function, eGFR values calculated with the CKD-EPI equation are not accurate in patients wi th acute kidney failure, extremes of body mass or the acutely ill. [email or web address] Specimen Anatomical Collection Method Collection Time Receive d Time (Source) Location / / Volume Laterality Blood specimen 04/12/2020 2:45 AM 020 3:12 (specimen) EDT AM EDT Resulting Agency Comment Spec In Lab Ashli Llamas MD CHEMISTRY ORDERABLES Performing Organization Address City/State/[place] [address] IR Arterial Intervention (04/12/2020 2:11 AM EDT) Anatomical Region Laterality Modality Vascular X-Ray Angiography Specimen (Source) Anatomical Location Collection Method / Collectio n Time Received Time / Laterality Volume Narrative 04/12/2020 12:33 PM EDT INTERVENTIONAL RADIOLOGY PROCEDURE NOTE Procedure: Mesenteric angiography with g astroduodenal artery embolization Indication for Procedure: 39 y.o. female with h/o alcohol use disorder transferred to [facility] in hemorrhagic shock after hematemesis now s/p clipping x4 of a bleeding prepyloric ulc er with GI. Patient with concern for ongoing bleeding given continued hem oglobin drop, persistent tachycardia, transfusion and pressor sup port requirements. Informed Consent: After discussing risks (including infection, trauma / damage to surrounding structures, hemorr shalom, non-success, amongst others), and benefits of the procedure, the patient's consented to the procedure. Monitoring and Sedation Details: Monitor ing of vital signs was provided by the ICU nurse throughout the procedure. No additional sedation was provided beyond the Critical Care team's previously ordered sedation plan. Procedure Events and Technique: A standard time-out was conducted just b efore the start of the procedure to verify all fish aspects; including the correct patient and planned procedure, procedure location, informed consent, and all relevant critical information, all of which were correct. The patient was positioned supine on the procedure table. ??The right groin was cleaned and prepped in typical steri le fashion; maximal sterile barrier technique was used throughout. ? ? The right common femoral artery was acce ssed using micropuncture technique with US guidance. A 21 ga needle was adv anced into the common femoral artery. An .018 guidewire was placed, a nd over this a 4 Fr sheath advanced. The remainder of the procedure was performed under fluoroscopic guidance. Wire and inner dilator were re moved and through this a 0.035 ??J curve guidewire was advanced. The 4 Fr s meredith was exchanged for a 5 Fr sheath over the wire. A 5 Fr C2 catheter was advanced into the upper abdominal aorta over the wire, and used to select the celiac axis . Hand injection confirmed catheter position. Contrast injection wa s performed. ??The GDA was identified and selected using an 0.035 glidewire and the 5-Fr catheter. A 4-mm Amplatzer plug was deployed in the vessel in the region of the recently endoscopically visualized bleed ing/at site of endoscopically placed clips. A combination of coils and gelfoam slurry were then placed proximal to the Amplatzer plug within th e artery to occlude branch vessels perfusing the suspected site of hemorrha ge. ??Repeat contrast study was performed. ??The C2 catheter was retract ed into the proximal celiac axis. Repeat contrast injection was repeated. Next, the C2 catheter which was used to select the SMA. A selective SMA arteriogram was obtained. ??Attempt was made to select and inferior pancreaticoduodenal artery with a combin ation of glidewire as well as a 3Fr microcatheter with an 0.018 wire, b ut was unsuccessful. A hand injection of contrast was perform ed for imaging of the right external iliac and common femoral arteri es. ??Sheath was then removed and hemostasis achieved with the use of a My nx closure device and 10 minutes of manual pressure. Medications: Sedation as per ICU nursing, please refe r to their documentation for further details. 1% Lidocaine <10 cc SQ. ? Contrast: 45 cc. Omnipaque 350, intra-ar terial. Fluoroscopic Time: 19.1 minutes, 236 mGr ay. Est Blood Loss: <50 cc. Complications: No immediate Findings: ?? Conventional celiac axis anatomy ?? Patent gastroduodenal artery and righ t epiploic artery with possible extravasation on initial angiogram unabl e to be confirmed on subsequent due to motion artifact. ?? Empiric embolization of the gastroduo denal artery with a combination of amplatzer plug, coils, and gelfoam slurr y. ??No opacification of the gastroduodenal artery at completion ellie ogram. ?? Small inferior pancreaticoduodenal ar ousmane arising from the SMA without active extravasation. ??Attempted select ion of this artery unsuccessful. ?? Widely patient Right External Iliac a nd Common Femoral Arteries. ?? Mynx closure device to right GLASSIE acce ss. ?? Impression: ??Selective mesenteric angio graphy showed no active extravasation. Empiric gastroduodenal ar ousmane embolization. Resident: Susan Grider MD Attending: Milo Steve DO I, Dr. Steve, was present throughout e procedure. I was present during the intraservice time as documented by raissa campoverde IR Nurse. ?? Rajendra Galo MD IMG IR ORDERABLES Transfuse RBC (04/12/2020 12:59 AM EDT) Muriel Xie MD NURSING TREATMENT ORDERABLES - BLOOD ADMIN Transfuse RBC (04/12/2020 12:59 AM EDT) Muriel Xie MD NURSING TREATMENT ORDERABLES - BLOOD ADMIN (ABNORMAL) Fibrinogen (04/12/2020 12:10 AM EDT) P athologist Signature Fibrinogen 128 (L) 200 - 393 [facility]dL [facility] Comment: A fibrinogen level >100 mg/dL is adequat e for hemostasis in most patients without underlying bleeding disorders. Specimen Anatomical Collection Method Collection Time Receive d Time (Source) Location / / Volume Laterality Blood specimen 04/12/2020 12:10 0 (specimen) AM EDT 12:39 AM EDT Resulting Agency Comment Spec In Lab Muriel Xie MD HEMATOLOGY ORDERABLES Performing Organization Address City/[facility]/ZIP Code Phon e Number [address] APTT (04/12/2020 12:10 AM EDT) P athologist Signature PTT 33 25 - 37 sec [facility] Comment: The PTT is NOT appropriate for heparin m onitoring. Use the Anti-Xa level for heparin monitoring (HEP UFH) or LMWH mon itoring (HEP LMW). A PTT less than 37 seconds generally indicates adequate hem ostasis. Specimen Anatomical Collection Method Collection Time Receive d Time (Source) Location / / Volume Laterality Blood specimen 04/12/2020 12:10 0 (specimen) AM EDT 12:39 AM EDT Resulting Agency Comment Spec In Lab Muriel Xie MD HEMATOLOGY ORDERABLES Performing Organization Address City/[facility]/ZIP Code Phon e Number [address] (ABNORMAL) Prothrombin Time (04/12/2020 12:10 AM EDT) P athologist Signature PT 18.8 (H) 9.4 - 12.5 [facility] LABORATORY INR 1.6 [facility] Comment: An INR <2.0 [...] Location / / Volume Laterality Blood specimen 04/12/2020 12:10 0 (specimen) AM EDT 12:39 AM EDT Resulting Agency Comment Spec In Lab Muriel Xie MD HEMATOLOGY ORDERABLES Performing Organization Address City/State/ZIP Code Phon e Number [place] [id number] HOS[address] LAB[address]ORY [address] (ABNORMAL) Hemogram (04/12/2020 12:10 AM EDT) [facility] gist Method Time Signature WBC 18.0 (H) 4.0 - 9.5 [place] x10(3)/[facility] LABORATORY RBC 3.92 (L) 4.00 - [place] 5.21 [facility] x10(6)/[facility] LABORATORY Hemoglobin 12.0 11.7 - [place] 15.5 gm/dL [facility] Hematocrit 35.7 35.7 - [place] 45.8 % [facility] MCV 91.1 82.6 - [place] 94.4 [facility] LABORATORY MCH 30.6 27.1 - [place] 32.0 pg [facility] MCHC 33.6 31.7 - [place] 35.0 gm/dL [facility] Platelets 162 145 - 357 [facility] x10(3)/[facility] LABORATORY RDWSD 55.7 (H) 37.0 - [place] 46.0 [facility] LABORATORY RDWCV 17.3 (H) 11.5 - [place] 14.1 % [facility] MPV 11.1 7.6 - 12.9 [place] [facility] LABORATORY nRBC % Auto 0.1 % [facility] nRBC Abs Auto 0.020 (H) 0.000 - [place] 0.000 [facility] x10(3)/[facility] LABORATORY Specimen Anatomical Collection Method Collection Time Receive d Time (Source) Location / / Volume Laterality Blood specimen 04/12/2020 12:10 0 (specimen) AM EDT 12:39 AM EDT Resulting Agency Comment Spec In Lab Muriel Xie MD HEMATOLOGY ORDERABLES Performing Organization Address City/[facility]/ZIP Code Phon e Number [address] (ABNORMAL) Lactate, whole blood, send to lab ([facility]) (04/12/2020 12:10 AM EDT) P athologist Signature Lactate WB 3.0 (H) 0.5 - 2.2 [facility] mmol/L [facility] Specimen Anatomical Collection Method Collection Time Receive d Time (Source) Location / / Volume Laterality Blood specimen 04/12/2020 12:10 0 (specimen) AM EDT 12:38 AM EDT Resulting Agency Comment Spec In Lab Rajendra Galo MD CHEMISTRY ORDERABLES Performing Organization Address City/[facility]/ZIP [place] [address] Blood culture (04/12/2020 12:10 AM EDT) [facility] gist Method Time Signature Blood Culture No growth ANABEL DIEGORODOLFO at 5 days. [facility] Specimen Anatomical Collection Method Collection Time Receive d Time (Source) Location / / Volume Laterality Blood specimen TOPOGRAPHY UNKNOWN 04/12/2020 12:10 07/2020 1:33 (specimen) / Unknown AM EDT AM EDT Resulting Agency Comment Spec In Lab Rajendra Galo MD MICROBIOLOGY - BLOOD ORDERAB LES Performing Organization Address City/[facility]/ZIP Code Phon e Number [address] Transfuse RBC (04/11/2020 9:55 PM EDT) Muriel Xie MD NURSING TREATMENT ORDERABLES - BLOOD ADMIN POCT Glucose (04/11/2020 7:56 PM EDT) P athologist Signature POC Glucose 151 65 - 199 [place] mg/dL [facility] Comment: Supplemental ranges: <140 mg/dL before meals <180 mg/dL all other times of the day Specimen Anatomical Collection Method Collection Time Receive d Time (Source) Location / / Volume Laterality Blood specimen 04/11/2020 7:56 PM 020 7:56 (specimen) EDT PM EDT Rajendra Galo MD POINT OF CARE TEST ORDERABLE S Performing Organization Address City/[facility]/[place] [address] (ABNORMAL) Fibrinogen (04/11/2020 7:45 PM EDT) P athologist Signature Fibrinogen 136 (L) 200 - 393 [facility] mg/dL [facility] Comment: A fibrinogen level >100 mg/dL is adequat e for hemostasis in most patients without underlying bleeding disorders. Specimen Anatomical Collection Method Collection Time Receive d Time (Source) Location / / Volume Laterality Blood specimen 04/11/2020 7:45 PM 020 7:55 (specimen) EDT PM EDT Resulting Agency Comment Spec In Lab Muriel Xie MD HEMATOLOGY ORDERABLES Performing Organization Address City/[facility]/[place] [address] APTT (04/11/2020 7:45 PM EDT) P athologist Signature PTT 36 25 - 37 sec [facility] Comment: The PTT is NOT appropriate for heparin m onitoring. Use the Anti-Xa level for heparin monitoring (HEP UFH) or LMWH mon itoring (HEP LMW). A PTT less than 37 seconds generally indicates adequate hem ostasis. Specimen Anatomical Collection Method Collection Time Receive d Time (Source) Location / / Volume Laterality Blood specimen 04/11/2020 7:45 PM 020 7:55 (specimen) EDT PM EDT Resulting Agency Comment Spec In Lab Muriel Xie MD HEMATOLOGY ORDERABLES Performing Organization Address City/[facility]/[place] [address] (ABNORMAL) Prothrombin Time (04/11/2020 7:45 PM EDT) P athologist Signature PT 18.4 (H) 9.4 - 12.5 [place] sec [facility] INR 1.6 [facility] Comment: An INR <2.0 [...] Location / / Volume Laterality Blood specimen 04/11/2020 7:45 PM 020 7:55 (specimen) EDT PM EDT Resulting Agency Comment Spec In Lab Muriel Xie MD HEMATOLOGY ORDERABLES Performing Organization Address City/State/[place] [address] (ABNORMAL) Hemogram (04/11/2020 7:45 PM EDT) Analysis Performed At Patho logist Time Signature WBC 16.2 (H) 4.0 - 9.5 [facility] RODOL[place] x10(3)/[facility] LABORATORY RBC 3.31 (L) 4.00 - [facility] 5.21 [facility] x10(6)/[facility] LABORATORY Hemoglobin 10.2 (L) 11.7 - [place] 15.5 gm/dL [facility] Hematocrit 30.2 (L) 35.7 - [place] 45.8 % [facility] MCV 91.2 82.6 - [place] 94.4 [facility] LABORATORY MCH 30.8 27.1 - [place] 32.0 pg [facility] MCHC 33.8 31.7 - [place] 35.0 gm/dL [facility] Platelets 157 145 - 357 [place] x10(3)/[facility] LABORATORY RDWSD 58.4 (H) 37.0 - [place] 46.0 [facility] LABORATORY RDWCV 18.0 (H) 11.5 - [place] 14.1 % [facility] MPV 11.4 7.6 - 12.9 [facility] LABORATORY nRBC % Auto 0.0 % [facility] nRBC Abs Auto 0.000 0.000 - [facility] 0.000 [facility] x10(3)/[facility] LABORATORY Specimen Anatomical Collection Method Collection Time Receive d Time (Source) Location / / Volume Laterality Blood specimen 04/11/2020 7:45 PM 020 7:55 (specimen) EDT PM EDT Resulting Agency Comment Spec In Lab Muriel Xie MD HEMATOLOGY ORDERABLES Performing Organization Address City/State/ZIP Code Phon e Number [address] Triglyceride (04/11/2020 7:45 PM EDT) P athologist Signature Triglycerides 177 mg/dL [facility] Comment: Average Risk/Lower Risk: <150 mg/dL Borderline High Risk: 150-199 mg/dL High Risk: 200-499 mg/dL Very High Risk: >us=879 mg/dL Specimen Anatomical Collection Method Collection Time Receive d Time (Source) Location / / Volume Laterality Blood specimen 04/11/2020 7:45 PM 020 7:55 (specimen) EDT PM EDT Resulting Agency Comment Spec In Lab Rajendra Galo MD CHEMISTRY ORDERABLES Performing Organization Address City/State/[place] [address] (ABNORMAL) BLOOD GAS 2 ARTERIAL (04/11/2020 5:53 PM EDT) Analysis Performed At Patho logist Time Signature pH Art 7.38 7.35 - [facility] 7.45 [facility] pCO2 Art 34 (L) 35 - 45 [facility] mmHg [facility] pO2 Art 137 (H) 85 - 104 [facility] mmHg [facility] HCO3 Art 19.9 (L) 20.0 - [facility] 26.0 [facility] mmol/[facility] BE Art -5.2 (L) -3.0 - 3.0 [facility] mmol/L [facility] Hgb Blood Gas 12.5 11.7 - [facility] 15.5 gm/dL [facility] O2HB Art 97.1 (H) 94.0 - [facility] 97.0 % [facility] COHB Art 0.6 % [facility] Comment: Nonsmokers: 0.5-1.5% COHB Smokers: Variable, but usually less than 10% Toxic: 20-30% COHB Lethal: Greater than 60% COHB METHB Art 0.7 <=1.5 % [facility] Na Whole Blood 140 135 - 145 mmol/L [facility] K Whole Blood 3.5 3.5 - 5.0 mmol/L [facility] Comment: Please note: Patients with WBC >100,000 may have falsely elevated Potassium levels. Contact the Clinical Chemistry L aboratory if there are any questions. ICa Whole Blood 0.96 (L) 1.15 - 1.33 mmol/L [facility] Comment: Note: ??Total bilirubin higher than 20 m g/dL may lead to falsely low ionized calcium. CL Whole Blood 108 (H) 98 - 107 mmol/L [facility] Gluc Whole Bld 181 65 - 199 mg/dL [facility] Comment: Diabetes: >=200 mg/dL plus symp toms. Lactate WB 3.0 (H) 0.5 - 2.2 mmol/L [facility] LAB[facility]ATORY FIO2 Art 40 % [facility] PF Ratio Art 342 [facility]ORY Specimen Anatomical Collection Method Collection Time Receive d Time (Source) Location / / Volume Laterality Blood specimen 04/11/2020 5:53 PM 020 5:53 (specimen) EDT PM EDT Rajendra Galo MD CHEMISTRY ORDERABLES Performing Organization Address City/State/[place] [address] Hepatitis C Antibody (04/11/2020 5:40 PM EDT) Analysis Performed At Patho logist Time Signature Hepatitis C Ab Negative Negative [facility] Specimen Anatomical Collection Method Collection Time Receive d Time (Source) Location / / Volume Laterality Blood specimen 04/11/2020 5:40 PM 020 5:42 (specimen) EDT PM EDT Resulting Agency Comment Spec In Lab Rajendra Galo MD IMMUNOLOGY ORDERABLES Performing Organization Address City/[facility]/[place] [address] Hepatitis B Core Antibody, IgM (04/11/2020 5:40 PM EDT) Analysis Performed At Patho logist Time Signature Hep B Core IgM Negative Negative [facility] Specimen Anatomical Collection Method Collection Time Receive d Time (Source) Location / / Volume Laterality Blood specimen 04/11/2020 5:40 PM 020 5:42 (specimen) EDT PM EDT Resulting Agency Comment Spec In Lab Rajendra Galo MD IMMUNOLOGY ORDERABLES Performing Organization Address City/[facility] [place] [address] Hepatitis B Surface Antibody (04/11/2020 5:40 PM EDT) P athologist Signature HepB Surface 131.6 IU/L [facility] LABORATORY Comment: HepB Surface Ab Quant: Unvaccinated: < 8.5 IU/L Vaccinated: > 11.5 IU/L HepB Surface Ab Positive [facility] Comment: Patient is considered to be immune to HB V infection. Expected Results: Vaccinated: Positive Unvaccinated: Negative Specimen Anatomical Collection Method Collection Time Receive d Time (Source) Location / / Volume Laterality Blood specimen 04/11/2020 5:40 PM 020 5:42 (specimen) EDT PM EDT Resulting Agency Comment Spec In Lab Rajendra Galo MD IMMUNOLOGY ORDERABLES Performing Organization Address City/[facility] [place] [address] Hepatitis B Surface Antigen (04/11/2020 5:40 PM EDT) Analysis Performed At Patho logist Time Signature HepB Surface Negative Negative [facility] LABORATORY Specimen Anatomical Collection Method Collection Time Receive d Time (Source) Location / / Volume Laterality Blood specimen 04/11/2020 5:40 PM 020 5:42 (specimen) EDT PM EDT Resulting Agency Comment Spec In Lab Rajendra Galo MD CHEMISTRY ORDERABLES Performing Organization Address City/[facility]/[place] [address] (ABNORMAL) Hepatitis A Antibody, Total (04/11/2020 5:40 PM EDT) [facility] gist Method Time Signature Hepatitis A Positive (A) Negative [facility] [place] Ab Total [facility] Specimen Anatomical Collection Method Collection Time Receive d Time (Source) Location / / Volume Laterality Blood specimen 04/11/2020 5:40 PM 020 5:42 (specimen) EDT PM EDT Resulting Agency Comment Spec In Lab Rajendra Galo MD IMMUNOLOGY ORDERABLES Performing Organization Address [facility]/[place]IP [place] [address] Vitamin B12 (04/11/2020 5:40 PM EDT) athologist Signature Vitamin B-12 678 232 - 1,245 [facility] [place] pg/mL [facility] Specimen Anatomical Collection Method Collection Time Receive d Time (Source) Location / / Volume Laterality Blood specimen 04/11/2020 5:40 PM 020 5:42 (specimen) EDT PM EDT Resulting Agency Comment Spec In Lab Muriel Xie MD CHEMISTRY ORDERABLES Performing Organization Address City/[facility]/[place] [address] (ABNORMAL) Folate, serum (04/11/2020 5:40 PM EDT) P athologist Signature Folate Lvl 3.5 (L) 4.8 - 24.2 [place] ng/mL [facility] Specimen Anatomical Collection Method Collection Time Receive d Time (Source) Location / / Volume Laterality Blood specimen 04/11/2020 5:40 PM 020 5:42 (specimen) EDT PM EDT Resulting Agency Comment Spec In Lab Muriel Xie MD CHEMISTRY ORDERABLES Performing Organization Address City/[facility]/[place] [address] Lipase (04/11/2020 5:40 PM EDT) athologist Signature Lipase 15 0 - 60 [facility] LABORATORY Specimen Anatomical Collection Method Collection Time Receive d Time (Source) Location / / Volume Laterality Blood specimen 04/11/2020 5:40 PM 020 5:42 (specimen) EDT PM EDT Resulting Agency Comment Spec In Lab Muriel Xie MD CHEMISTRY ORDERABLES Performing Organization Address City/State/ZIP Code Phon e Number [address] (ABNORMAL) Ammonia (04/11/2020 5:40 PM EDT) athologist Signature Ammonia 82 (H) 11 - 51 [facility] LABORATORY Specimen Anatomical Collection Method Collection Time Receive d Time (Source) Location / / Volume Laterality Blood specimen 04/11/2020 5:40 PM 020 5:42 (specimen) EDT PM EDT Resulting Agency Comment Spec In Lab Muriel Xie MD CHEMISTRY ORDERABLES Performing Organization Address City/State/ZIP Code Phon e Number [address] POCT Glucose (04/11/2020 5:19 PM EDT) athologist Signature POC Glucose 169 65 - 199 [facility] mg/dL [facility] Comment: Supplemental ranges: <140 mg/dL before meals <180 mg/dL all other times of the day Specimen Anatomical Collection Method Collection Time Receive d Time (Source) Location / / Volume Laterality Blood specimen 04/11/2020 5:19 PM 020 5:19 (specimen) EDT PM EDT Rajendra Galo MD POINT OF CARE TEST ORDERABLE S Performing Organization Address City/State/[place] [address] UPPER GI ENDOSCOPY (04/11/2020 5:16 PM EDT) Component Value Ref Test Analysis Performed At Patholo gist Range Method Time Signature UPPER GI [facility] ENDOSCOPY Endoscopy Procedure Date: 04/11/2020 5:16 PM ? Patient Name: Violet Cowan ? Date of : 1980 ? Age: 39 ? Order #: [id number] ? Instrument Name: [id number] ? Procedure: ? Upper GI endoscopy Indications: ? Coffee-ground emesis Providers: ? Delta. Radha, Matthias Manju Referring MD: ? Medicines: ? Monitored Anesthesia Care Complications: ? No immediate complications. Procedure: ? Pre-Anesthesia Assessment: ? - See the other procedure not e for ? documentation of the pre-proc edure ? assessment. ? The procedure, indications, b enefits, ? risks and alternatives were e xplained ? to the patient. Specifically ? discussed were potential ? complications including, but not ? limited to, bleeding, perfora tion, ? infection, missing a cancer, and ? adverse medication reactions. The ? Endoscope was introduced thro h the ? mouth, and advanced to the ird part ? of duodenum. The patient tole rated ? the procedure well. The upper GI ? endoscopy was performed with ? difficulty due to poor endosc opic ? visualization. The patient to lerated ? the procedure well. ? Findings: ? Esophagogastric landmarks were identified: the Z-line ? was found at 40 cm and the gastroesophageal junction ? was found at 40 cm from the incisors. ? The stomach and duodenum were filled with fresh blood ? making visualization difficult. ? Active bleeding throughout procedure. ? One spurting cratered gastric ulcer with spurting ? hemorrhage (Patricio Class Ia) was found in the ? prepyloric region of the stomach. The lesion was 5 mm ? in largest dimension. To stop active bleeding, four ? hemostatic clips were successfully placed (MR ? conditional). There was no bleeding at the end of the ? procedure. ? The examined duodenum was normal. ? Moderate Sedation: ? Not applicable - See Anesthesia documentation Impression: ?- Esophagogastric landmarks ? identified. ? - Spurting gastric ulcer with ? spurting hemorrhage (Patricio Class ? Ia). Clips (MR conditional) w ere ? placed. ? - Normal examined duodenum. ? - No specimens collected. Recommendation: ?Likely limited role of repeat EGD if ? rebleed; suggest IR embolizat ion ? attempt as next step if reble ed. ? PPI and ongoing supportive ca re ? NPO overnight ? Will need oral PPI BID at dis charge ? and screening for H.pylori ? Will need repeat EGD in 6-8 w eeks to ? confirm healing of ulcer ? Attending Participation: ? I personally performed the entire procedure. ? Javid Garcia Javid Garcia, 04/15/2020 8:41:54 AM Number of Addenda: 0 Note Initiated On: 04/11/2020 5:16 PM Specimen (Source) Anatomical Collection Method Collection Time Re ceived Time Location / / Volume Laterality 04/11/2020 5:16 PM EDT Unknown GENERAL SURGICAL ORDERABLES Performing Organization Address City/State/ZIP Code Phon e Number [facility] XR Chest One View (04/11/2020 4:34 PM EDT) Anatomical Region Laterality Modality Chest N/A Digital Radiography Specimen (Source) Anatomical Location Collection Method / Collectio n Time Received Time / Laterality Volume Impressions 04/11/2020 4:42 PM EDT Endotracheal tube tip at the clavicle heads. Enteric tube in the stomach. Thank you for letting us participate in the care of this patient. For questions regarding this report, please contact e number below. ? Electronically signed by: Kyle Goode MD, [facility] ([phone]), at 04/11/2020 4:42 PM Narrative 04/11/2020 4:42 PM EDT EXAMINATION: XR CHEST ONE VIEW CLINICAL HISTORY: tube placement TECHNIQUE: 1 view of the chest COMPARISON: None FINDINGS: Endotracheal tube distal tip is at the c lavicle heads. Enteric tube in the stomach, distal tip off the field of vie w. Lungs are hypoinflated with subsequent b ronchovascular crowding. Mild medial basilar atelectasis. No airspace consoli dation or evident effusion. Heart size is normal. Normal pulmonary v asculature. Bones unremarkable. Procedure Note Kyle Goode MD - 04/11/2020Format ting of this note might be different from the original. EXAMINATION: XR CHEST ONE VIEW CLINICAL HISTORY: tube placement TECHNIQUE: 1 view of the chest COMPARISON: None FINDINGS: Endotracheal tube distal tip is at the c lavicle heads. Enteric tube in the stomach, distal tip off the field of vie w. Lungs are hypoinflated with subsequent b ronchovascular crowding. Mild medial basilar atelectasis. No airspace consoli dation or evident effusion. Heart size is normal. Normal pulmonary v asculature. Bones unremarkable. IMPRESSION Endotracheal tube tip at the clavicle he ads. Enteric tube in the stomach. Thank you for letting us participate in the care of this patient. For questions regarding this report, please contact [facility] number below. Christelle Morales MD IMG DX ORDERABLES COVID-19 PCR (04/11/2020 4:33 PM EDT) [facility] Method Time Signature SARS-CoV-2 Not Detected Not Detected ANABEL RNA PCR [facility] Comment: This result should be interpreted [...] using the Simplexa COVID-19 Direct Assay by Heckyllopez moise as authorized by the FDA issued Emergency Use Authorization (EUA). This assay is intended for In-vitro Diagnostic (IVD) use with nasopharyngeal swabs collected from individuals meeting the CDC criteria for testing. [facility] assay is performed based on the instructions for use and additional guid ance provided by the FDA. Testing is performed in the Microbiology Laboratory within the Department of Pathology and Laboratory Medicine at [facility], certified under the Clinical Laboratory Improvement Amendmen [...] clinical management guidance information are available at [facility] CDC Coronavirus Disease 2019 (COVID-19) webpage under Information fo r Healthcare Professionals (https://www.cdc.gov/coronavirus/2019-nc ov/hcp/index.html). SARS-CoV-2 Source [employer] [facility] LABORATORY Specimen (Source) Anatomical Collection Method Collection Time Re ceived Time Location / / Volume Laterality Nasopharyngeal swab 04/11/2020 4:33 04/11 (specimen) PM EDT 5:00 PM EDT Comment: Symptoms->Surveillance Resulting Agency Comment Spec In Lab Christelle Morales MD MICROBIOLOGY - GENERAL ORDER MARK Performing Organization Address City/State/[place] [address] Rapid Drug Screen w/o Confirmation, Urine (04/11/2020 4:32 PM EDT) [facility] Method Time Signature U Barbiturates None None [facility] Screen Detected Detected [facility] Comment: The barbiturate screen detects barbitura dom at concentrations >200 ng/mL. Note: Not all barbiturates cross-react equally with antibody used in this screen. A ? Presumptive Positive? result indicates that the screening result was positive but has not yet been confirmed by a highly-specific method. As with any screen, occasional false positive re sults from cross-reacting substances may occur. Not for Medico-Legal Purposes. U Benzodiazepines Screen None Detected None Detected [facility] Comment: The benzodiazepines screen detects benzo diazepines at concentrations >100 ng/mL. Not all benzodiazepines cross-vinicio ct equally with antibody used in this screen. Due to the low dosage of clonaze constance, false negatives may be obtained due to low concentration of clonazepam m etabolites. A ? Presumptive Positive? result indicates that the screening result was positive but has not yet been confirmed by a highly-specific method. As with any screen, occasional false positive re sults from cross-reacting substances may occur. Not for Medico-Legal Purposes. U Cocaine Screen None Detected None Detected [facility] Comment: The cocaine metabolites screen detects b enzoylecgonine (Cocaine Metabolite) at concentrations >150 ng/mL. A ? Presumptive Positive? result indicates that the screening result was positive but has not yet been confirmed by a highly-specific method. As with any screen, occasional false positive re sults from cross-reacting substances may occur. Not for Medico-Legal Purposes. U Methadone Metabolites None Detected None Detected [facility] LABORATORY Comment: The methadone metabolite screen detects EDDP (major methadone metabolite) at concentrations >100 ng/mL. A ? Presumptive Positive? result indicates that the screening result was positive but has not yet been confirmed by a highly-specific method. As with any screen, occasional false positive re sults from cross-reacting substances may occur. Not for Medico-Legal Purposes. U Opiate Screen None Detected None Detected [facility] Comment: The opiates screen detects opiates at co ncentrations >300 ng/mL. Please note that oxycodone, oxymorphone, fentanyl, tramadol, and other synthetic opioids are not detected by [facility] opiate screen. A ? Presumptive Positive? result indicates that the screening result was positive but has not yet been confirmed by a highly-specific method. As with any screen, occasional false positive re sults from cross-reacting substances may occur. Not for Medico-Legal Purposes. U Cannabinoid Screen None Detected None Detected Lizzy JIMBO [facility] LAB[facility] Comment: The marijuana metabolites screen detects the THC metabolite (24-wco-7-carboxy-delta 9-THC) at concen trations >20 ng/mL. A ? Presumptive Positive? result indicates that the screening result was positive but has not yet been confirmed by a highly-specific method. As with any screen, occasional false positive re sults from cross-reacting substances may occur. Not for Medico-Legal Purposes. U Oxycodone Screen None Detected None Detected [facility] Comment: The oxycodone screen detects oxycodone a nd oxymorphone at concentrations >100 ng/mL. A ? Presumptive Positive? result indicates that the screening result was positive but has not yet been confirmed by a highly-specific method. As with any screen, occasional false positive re sults from cross-reacting substances may occur. Not for Medico-Legal Purposes. U Buprenorphine Screen None Detected None Detected [facility] Comment: The buprenorphine screen detects bupreno rphine at concentrations >5 ng/mL. A ? Presumptive Positive? result indicates that the screening result was positive but has not yet been confirmed by a highly-specific method. As with any screen, occasional false positive re sults from cross-reacting substances may occur. Not for Medico-Legal Purposes. U Fentanyl Screen None Detected None Detected Lizzy CHOI [facility] Comment: The fentanyl screen detects fentanyl at concentrations >2 ng/mL. A ? Presumptive Positive? result indicates that the screening result was positive but has not yet been confirmed by a highly-specific method. As with any screen, occasional false positive re sults from cross-reacting substances may occur. Not for Medico-Legal Purposes. U Tricyclics Screen None Detected None Detected MAYRA ANDRE [facility] Comment: The tricyclics screen detects tricyclic antidepressants at concentrations >150 ng/mL. Not all tricyclics cross-react eq ually with the antibody used in this screen. A ? Presumptive Positive? result indicates that the screening result was positive but has not yet been confirmed by a highly-specific method. As with any screen, occasional false positive re sults from cross-reacting substances may occur. Not for Medico-Legal Purposes. U Ethanol Screen None Detected None Detected [facility] Comment: This urine ethanol assay detect s ethanol at concentrations >/= 100 mg/L. U Amphetamines Screen None Detected None Detected [facility] Comment: The amphetamine screen detects d-ampheta mine and d-methamphetamine at concentrations >300 ng/mL. A ? Presumptive Positive? result indicates that the screening result was positive but has not yet been confirmed by a highly-specific method. As with any screen, occasional false positive re sults from cross-reacting substances may occur. Not for Medico-Legal Purposes. U Adulterants Screen None Detected None Detected Lizzy CHOI [facility] Comment: No adulteration or dilution of this urin e sample was detected. All urine samples submitted for urine drugs of abu se analysis are tested for creatinine concentration, pH, and for the presence of oxidants, nitrites, and chromate. Specimen Anatomical Collection Method Collection Time Receive d Time (Source) Location / / Volume Laterality Urine specimen 04/11/2020 4:32 PM 020 4:55 (specimen) EDT PM EDT Resulting Agency Comment Spec In Lab Christelle Morales MD CHEMISTRY ORDERABLES Performing Organization Address City/[facility]/ZIP Code Phon e Number [address] Rapid Drug Screen, Urine (TELMA Request) (04/11/2020 4:32 PM EDT) Patholo gist Method Time Signature TELMA Conf No [facility] LABORATORY TELMA Requested See Comment [facility] Comment: Refer to Rapid Drug Screen w/o Confirmation, Urine for results. Specimen Anatomical Collection Method Collection Time Receive d Time (Source) Location / / Volume Laterality Urine specimen 04/11/2020 4:32 PM 020 4:55 (specimen) EDT PM EDT Resulting Agency Comment Spec In Lab Christelle Morales MD URINE ORDERABLES Performing Organization Address City/[facility]/ZIP Code Phon e Number [address] Prepare RBC (04/11/2020 4:00 PM EDT) P athologist Signature Dispensed? Yes [facility] Specimen Anatomical Collection Method Collection Time Receive d Time (Source) Location / / Volume Laterality Blood specimen 04/11/2020 4:00 PM 020 4:04 (specimen) EDT PM EDT Muriel Xie MD BLOOD BANK ORDERABLES Performing Organization Address City/[facility]/ZIP Code Phon e Number [address] ABORH Recheck Status (04/11/2020 3:50 PM EDT) [facility] Method Time Signature ABORH Recheck Order Placed [facility] LAB[facility]ORY ABORH Type Complete [facility] LABORATORY Specimen Anatomical Collection Method Collection Time Receive d Time (Source) Location / / Volume Laterality Blood specimen 04/11/2020 3:50 PM 020 4:06 (specimen) EDT PM EDT Resulting Agency Comment Spec In Lab Christelle Morales MD BLOOD BANK ORDERABLES Performing Organization Address City/State/[place] [address] Antibody screen (04/11/2020 3:50 PM EDT) [facility] Method Time Signature Ab Screen Negative [facility] LABORATORY Expires at 04/14/2020 [facility] [id number] on: [facility] LABORATORY Specimen Anatomical Collection Method Collection Time Receive d Time (Source) Location / / Volume Laterality Blood specimen 04/11/2020 3:50 PM 020 4:06 (specimen) EDT PM EDT Resulting Agency Comment Spec In Lab Christelle Morales MD BLOOD BANK ORDERABLES Performing Organization Address City/[facility]/ZIP Code Phon e Number [address] ABO/Rh Typing (04/11/2020 3:50 PM EDT) P athologist Signature ABORh Type A Pos [facility] Specimen Anatomical Collection Method Collection Time Receive d Time (Source) Location / / Volume Laterality Blood specimen 04/11/2020 3:50 PM 020 4:06 (specimen) EDT PM EDT Resulting Agency Comment Spec In Lab Christelle Morales MD BLOOD BANK ORDERABLES Performing Organization Address City/[facility]/[place] [address] Red Tube Hold (04/11/2020 3:45 PM EDT) P athologist Signature Red Hold Sample in [facility] LABORATORY Specimen Anatomical Collection Method Collection Time Receive d Time (Source) Location / / Volume Laterality Blood specimen Venous Draw / 04/11/2020 3:45 PM 2019 3:56 (specimen) Unknown EDT PM EDT Christelle Morales MD CHEMISTRY ORDERABLES Performing Organization Address City/[facility]/[place] [address] Gold Tube HOLD (04/11/2020 3:45 PM EDT) athologist Signature Gold Hold Sample in [facility] LABORATORY Specimen Anatomical Collection Method Collection Time Receive d Time (Source) Location / / Volume Laterality Blood specimen Venous Draw / 04/11/2020 3:45 PM 2019 3:56 (specimen) Unknown EDT PM EDT Christelle Morales MD CHEMISTRY ORDERABLES Performing Organization Address City/[facility]/[place] [address] (ABNORMAL) Fibrinogen (04/11/2020 3:45 PM EDT) athologist [facility] Fibrinogen 137 (L) 200 - 393 [facility] mg/dL [facility] Comment: A fibrinogen level >100 mg/dL is adequat e for hemostasis in most patients without underlying bleeding disorders. Specimen Anatomical Collection Method Collection Time Receive d Time (Source) Location / / Volume Laterality Blood specimen 04/11/2020 3:45 PM 020 3:54 (specimen) EDT PM EDT Resulting Agency Comment Spec In Lab Christelle Morales MD HEMATOLOGY ORDERABLES Performing Organization Address City/[facility]/[place] [address] Platelet count (04/11/2020 3:45 PM EDT) athologist [facility] Platelets 221 145 - 357 [facility] x10(3)/[facility] LABORATORY Plat Immature 5.4 0.0 - 7.4 [facility] % % [facility] Comment: Limitation of the Immature Platelet Frac tion (IPF)-May be less reliable when the platelet count is less than 64u340/u L due to statistical imprecision. The IPF value provides an assessment of the Bone Marrow production status. ??It is useful in differentiating Thrombocyto penia caused by platelet destruction/consumption versus decreased production. It also helps to determine the imminent release of platelets and ca n be therefore a helpful parameter in Chemotherapy and Bone marrow transplant patients. ELEVATED IPF value: ?? When the bone marrow is in a state of over production such as when increased destruction and consumption are the unde rlying issue. ?? When the marrow is recovering post ch emotherapy or bone marrow transplant. LOW to NORMAL IPF value: ?? When the bone marrow in not respondin g and is in a decreased state of production. References: [employer] The Clinical Value of the Immature Platelet Fraction (IPF) in Cell Recovery Document Number 10-1143 12/2010 [employer] The Role of the Imm ature Platelet Fraction (IPF) in the Differential Diagnosis of Thrombocytopen ia, Document [id number] V012/10/13 P012/12 Specimen Anatomical Collection Method Collection Time Receive d Time (Source) Location / / Volume Laterality Blood specimen 04/11/2020 3:45 PM 020 3:54 (specimen) EDT PM EDT Resulting Agency Comment Spec In Lab Christelle Morales MD HEMATOLOGY ORDERABLES Performing Organization Address City/State/[place] [address] (ABNORMAL) Differential, Automated (04/11/2020 3:45 PM EDT) [facility] Method Time Signature Neutrophils % 83.9 % [facility]ORY Neutr Abs (ANC) 12.70 (H) 1.70 - [facility] 6.10 [facility] x10(3)/[facility] L LABORATORY Lymphocytes % 6.1 % [facility] Lymphocytes Abs 0.9 0.9 - 3.2 [facility] x10(3)/[facility] LABORATORY Monocytes % 8.9 % [facility] Monocyte Abs 1.4 (H) 0.3 - 0.9 [facility] x10(3)/[facility] LABORATORY Eosinophils % 0.3 % [facility] Eosinophils Abs 0.0 0.0 - 0.4 [facility] x10(3)/[facility] LABORATORY Basophils % 0.3 % [facility] Basophils Abs 0.0 0.0 - 0.1 [facility] x10(3)/[facility] LABORATORY Immature Gran % 0.50 % [facility] Comment: Immature granulocytes(IG's)percentage an d absolute count will include metamyelocytes, myelocytes, and promyelo cytes. Blood smears from CBCs yielding IG's will be scanned manually for concor dance. If this scan disagrees with the automated IG or if promyelocytes are not ed, a manual differential will be performed. Josey Gran Abs 0.08 (H) 0.00 - 0.04 x10(3)/[facility] LABORATORY Specimen Anatomical Collection Method Collection Time Receive d Time (Source) Location / / Volume Laterality Blood specimen 04/11/2020 3:45 PM 020 3:54 (specimen) EDT PM EDT Resulting Agency Comment Spec In Lab Christelle Morales MD HEMATOLOGY ORDERABLES Performing Organization Address City/State/ZIP Code Phon e Number [place] [phone]OSPITAL LAB[address] (ABNORMAL) Hemogram (04/11/2020 3:45 PM EDT) [facility] gist Method Time Signature WBC 15.2 (H) 4.0 - 9.5 [facility] x10(3)/[facility] LABORATORY RBC 3.70 (L) 4.00 - [facility] 5.21 [facility] x10(6)/[facility] LABORATORY Hemoglobin 11.4 (L) 11.7 - [facility] 15.5 gm/dL [facility] LABORATORY Hematocrit 34.1 (L) 35.7 - [facility] 45.8 % [facility] LAB[facility]ATORY MCV 92.2 82.6 - [facility] 94.4 fL [facility] LABORATORY MCH 30.8 27.1 - [facility] 32.0 pg [facility] LABORATORY MCHC 33.4 31.7 - [facility] 35.0 gm/dL [facility] LABORATORY Platelets 221 145 - 357 [facility] x10(3)/[facility] LABORATORY RDWSD 55.8 (H) 37.0 - [place] 46.0 [facility] LABORATORY RDWCV 17.2 (H) 11.5 - [place] 14.1 % [facility] LABORATORY MPV 11.3 7.6 - 12.9 [facility] LABORATORY nRBC % Auto 0.1 % [facility] LABORATORY nRBC Abs Auto 0.020 (H) 0.000 - [facility] 0.000 [facility] x10(3)/[facility] LABORATORY Specimen Anatomical Collection Method Collection Time Receive d Time (Source) Location / / Volume Laterality Blood specimen 04/11/2020 3:45 PM 020 3:54 (specimen) EDT PM EDT Resulting Agency Comment Spec In Lab Chirstelle Morales MD HEMATOLOGY ORDERABLES Performing Organization Address City/[facility]/ZIP Code Phon e Number [address] Ethanol Level (04/11/2020 3:45 PM EDT) P athologist Signature Ethanol Lvl <100 <=99 mg/L [facility] Comment: Greater than 800 mg/L (0.08%) should be considered intoxicated. 3400 to 4500 mg/L (0.34 - 0.45%) is cons idered severe intoxication. Greater than 5500 mg/L (0.55%) is usuall y fatal. Specimen Anatomical Collection Method Collection Time Receive d Time (Source) Location / / Volume Laterality Blood specimen 04/11/2020 3:45 PM 020 3:54 (specimen) EDT PM EDT Resulting Agency Comment Spec In Lab Christelle Morales MD CHEMISTRY ORDERABLES Performing Organization Address City/[facility]/ZIP Code Phon e Number [address] APTT (04/11/2020 3:45 PM EDT) P athologist Signature PTT 30 25 - 37 sec [facility] Comment: The PTT is NOT appropriate for heparin m onitoring. Use the Anti-Xa level for heparin monitoring (HEP UFH) or LMWH mon itoring (HEP LMW). A PTT less than 37 seconds generally indicates adequate hem ostasis. Specimen Anatomical Collection Method Collection Time Receive d Time (Source) Location / / Volume Laterality Blood specimen 04/11/2020 3:45 PM 020 3:54 (specimen) EDT PM EDT Resulting Agency Comment Spec In Lab Christelle Morales MD HEMATOLOGY ORDERABLES Performing Organization Address [facility] [place] [address] (ABNORMAL) Prothrombin Time (04/11/2020 3:45 PM EDT) P athologist Signature PT 17.6 (H) 9.4 - 12.5 [facility] LABORATORY INR 1.5 [facility] Comment: An INR <2.0 [...] Location / / Volume Laterality Blood specimen 04/11/2020 3:45 PM 020 3:54 (specimen) EDT PM EDT Resulting Agency Comment Spec In Lab Christelle Morales MD HEMATOLOGY ORDERABLES Performing Organization Address [facility] [place] [address] Lipase (04/11/2020 3:45 PM EDT) P athologist Signature Lipase 20 0 - 60 [facility] unit/L [facility] LABORATORY Specimen Anatomical Collection Method Collection Time Receive d Time (Source) Location / / Volume Laterality Blood specimen 04/11/2020 3:45 PM 020 3:54 (specimen) EDT PM EDT Resulting Agency Comment Spec In Lab Christelle Morales MD CHEMISTRY ORDERABLES Performing Organization Address City/[facility]/[place] [address] (ABNORMAL) Hepatic Function Panel (04/11/2020 3:45 PM EDT) P athologist Signature Total Protein 5.8 (L) 6.1 - 8.0 [facility] LAB[facility]ATORY Albumin 3.0 (L) 3.2 - 5.2 [facility] gm/dL [facility] LABORATORY AST 90 (H) 0 - 30 [facility] [place] unit/L [facility] LAB[facility]ATORY ALT 22 0 - 30 [facility] [place] unit/L [facility]ORY Alk Phos 111 (H) 35 - 105 [facility]L [facility] LAB[facility]ATORY Total 4.9 (H) 0.2 - 1.3 [facility] [place] Bilirubin mg/dL [facility] LABORATORY Bili, Direct 3.5 (H) 0.0 - 0.3 [facility] [place] mg/dL [facility] LABORATORY Specimen Anatomical Collection Method Collection Time Receive d Time (Source) Location / / Volume Laterality Blood specimen 04/11/2020 3:45 PM 020 3:54 (specimen) EDT PM EDT Resulting Agency Comment Spec In Lab Christelle Morales MD CHEMISTRY ORDERABLES Performing Organization Address City/[facility]/Z[place] [address] (ABNORMAL) Basic Metabolic Panel (non-fasting) (04/11/2020 3:45 PM EDT) athologist Signature Glucose Lvl 210 (H) 65 - 199 [facility]dL [facility]ORY Comment: Diabetes: >=200 mg/dL plus symp toms BUN 24 (H) 8 - 18 mg/dL [facility] LABORATORY Creatinine 0.86 0.70 - 1.20 mg/dL [facility] LABOR[facility]ORY Sodium 140 135 - 145 mmol/L [facility] Potassium 4.1 3.5 - 5.0 mmol/L [facility] Comment: Please note: ??Patients with WBC >100,00 0 may have falsely elevated Potassium levels. ??For accurate Potassium quantif ication in these patients send serum separator tube (gold top) for subsequent determinations. ??Contact the Clinical Chemistry Laboratory if there are any qu estions. Chloride 102 98 - 107 mmol/L [facility] CO2 20 (L) 22 - 31 mmol/L [facility] Anion Gap 18 (H) 5 - 15 mmol/L [facility]ORATORY Calcium 7.3 (L) 8.5 - 10.5 mg/dL [facility] Estimated GFR 84 >=60 mL/min/1.73 m?? [facility] Comment: The eGFR was calculated using the CKD-EP I equation. As with all creatinine based estimates of kidney function, eGFR values calculated with the CKD-EPI equation are not accurate in patients wi th acute kidney failure, extremes of body mass or the acutely ill. [email or web address] eGFR 97 >=60 mL/min/1.73 m?? [facility] Comment: The eGFR was calculated using the CKD-EP I equation. As with all creatinine based estimates of kidney function, eGFR values calculated with the CKD-EPI equation are not accurate in patients wi th acute kidney failure, extremes of body mass or the acutely ill. [email or web address] CITYnkf Specimen Anatomical Collection Method Collection Time Receive d Time (Source) Location / / Volume Laterality Blood specimen 04/11/2020 3:45 PM 020 3:54 (specimen) EDT PM EDT Resulting Agency Comment Spec In Lab Christelle Morales MD CHEMISTRY ORDERABLES Performing Organization Address City/State/[place] [address] (ABNORMAL) BLOOD GAS 2 VENOUS (04/11/2020 3:38 PM EDT) P athologist Signature pH Ros[place] 7.37 7.32 - [facility] 7.42 [facility] LABORATORY pCO2 Ros[place] 42 41 - 51 [facility] LABORATORY pO2 Ros[place] 19 (L) 25 - 40 [facility] LABORATORY HCO3 [place] 23.5 mmol/L [facility] BE Rosendo -1.9 mmol/L [facility] Hgb Blood Gas 12.8 11.7 - [facility] 15.5 gm/dL [facility]ORY O2HB Ros[place] 33.0 % [facility] COHB Rosendo 0.2 % [facility] Comment: Nonsmokers: 0.5-1.5% COHB Smokers: Variable, but usually less than 10% Toxic: 20-30% COHB Lethal: Greater than 60% COHB METHB Rosendo 0.9 <=1.5 % [facility] Na Whole Blood 140 135 - 145 mmol/L [facility] K Whole Blood 4.7 3.5 - 5.0 mmol/L [facility] Comment: Please note: Patients with WBC >100,000 may have falsely elevated Potassium levels. Contact the Clinical Chemistry L aboratory if there are any questions. ICa Whole Blood 0.89 (Critical) 1.15 - 1.33 mmol/L [facility] Comment: Noted by instrument inspector. Note: ??Total bilirubin higher than 20 m g/dL may lead to falsely low ionized calcium. CL Whole Blood 104 98 - 107 mmol/L [facility] Gluc Whole Bld 222 (H) 65 - 199 mg/dL [facility] Comment: Diabetes: >=200 mg/dL plus symp toms Lactate WB 4.1 (Critical) 0.5 - 2.2 mmol/L [facility] Comment: Noted by instrument inspector. BGas Source Venous [facility] Specimen Anatomical Collection Method Collection Time Receive d Time (Source) Location / / Volume Laterality Blood specimen 04/11/2020 3:38 PM 020 3:38 (specimen) EDT PM EDT Dr Corie Kerns MD CHEMISTRY ORDERABLES Performing Organization Address City/State/[place] [address] Film Library- Storage Only CT Abdomen & Pelvis (04/09/2020 12:00 AM EDT) Specimen (Source) Anatomical Location Collection Method / Collectio n Time Received Time / Laterality Volume Narrative RAD - 04/11/2020 2:26 PM EDT This exam is auto-finalizing. It's purpo se is for storage only. Oracio Long MD IMG FILM LIBRARY ORDERABLES Performing Organization Address City/State/ZIP Code Phon e Number [place], [place] documented in this encounter Visit Diagnoses Diagnosis GI bleed - Primary Hemorrhage of gastrointestinal tract, un specified documented in this encounter Admitting Diagnoses Diagnosis GI bleed Hemorrhage of gastrointestinal tract, un specified documented in this encounter Administered Medications Inactive Administered Medications - up to 3 most recent administrations Medication Order MAR Action Action Date Dose Rate Site acetaminophen (Tylenol) tablet 650 Given 04/16/2020 3:51 AM EDT 650 mg mg 650 mg, Oral, ONCE, 1 dose, On Tue04/16/20 at 0430, Maximum dose of acetaminophen is 4000 mg from all sources in 24 hours. When ordered for pain, acetaminophen should be given even when other ordered pain medications are indicated. , Routine acetaminophen (Tylenol) tablet 650 mg Given 04/17/2020 3:28 AM EDT 650 mg 650 mg, Oral, ONCE, 1 dose, On Niurka 04/17/20 at 0400, Maximum dose of acetaminophen is 4000 mg from all sources in 24 hours. When ordered for pain, acetaminophen should be given even when other ordered pain medications are indicated. , Routine albumin (human) 5% 250 mL intravenous New Bag 04/14/2020 3:29 AM E DT 12.5 g solution 12.5 g, Intravenous, EVERY 30 MIN, 2 doses, First dose on Tue04/14/20 at 0315, Last dose on Tue04/14/20 at 0345, 1 bottle (unit) = 12.5 grams / 250 mL (Total Dose = 25 grams = 2 bottles), Routine New Bag 04/14/2020 2:54 AM EDT 12.5 g calcium gluconate 1g in sodium chloride New Bag 04/12/2020 4:4 9 AM EDT 1 g 50 mL/hr 0.9% 50mL 1 g, Intravenous, ONCE, 1 dose, On 04/12/20 at 0445, Administer over 60 Minutes, Warning Vesicant/Irritant Medication cefTRIAXone (ROCEPHIN) 1 g vial attach New Bag 04/11/2020 4:16 PM EDT 1 g 100 mL/hr to sodium chloride 0.9% 50 mL Mini-Bag Plus 1 g, Intravenous, ONCE, 1 dose, On Tue04/11/20 at 1545, Administer over 30 Minutes, Indication for (Active or Suspected): Prophylaxis cefTRIAXone (ROCEPHIN) 1 g vial attach New Bag 04/15/2020 4:12 PM EDT 1 g 100 mL/hr to sodium chloride 0.9% 50 mL Mini-Bag Plus 1 g, Intravenous, EVERY 24 HOURS, 6 doses, First dose on Tue04/12/20 at 1600, Last dose on Niurka 04/17/20 at 1600, Administer over 30 Minutes, Indication for (Active or Suspected): GI/Intra-abdominal New Bag 04/14/2020 4:47 PM EDT 1 g 100 mL/hr New Bag 04/13/2020 4:17 PM EDT 1 g 100 mL/hr chlorhexidine (PERIDEX) 0.12 % oral solution Given 07/2020 9:24 AM EDT 15 mLs 15 mL 15 mL, Oral, 2 TIMES DAILY, First dose on Tue04/11/20 at 2100, Until Discontinued, Swab oral cavity. Ventilator-associated pneumonia prophylaxis, Routine Given 04/11/2020 9:27 PM EDT 15 mLs ciprofloxacin (Cipro) tablet 500 mg Given 04/17/2020 6:32 AM EDT 500 mg 500 mg, Oral, 2 TIMES DAILY, 8 doses, First dose on Tue04/16/20 at 0900, Last dose on Tue04/19/20 at 1900, Routine Given 04/16/2020 8:00 PM EDT 500 mg Given 04/16/2020 12:18 PM EDT 500 mg fentaNYL (PF) 50 mcg/mL injection Given 04/11/2020 6:45 PM EDT 25 mcg 25 mcg, Intravenous, ONCE, 1 dose, On Tue04/11/20 at 1815, Initial bolus dose: IV once now followed by continuous infusion., Routine fentaNYL 50 mcg/mL syringe Rate/Dose Verify 04/12/2020 6:00 AM EDT 50 mcg/hr 1 mL/hr 0-200 mcg/hr (0-4 mL/hr), Intravenous, CONTINUOUS, Starting on Tue04/11/20 at 1815, Until 04/12/20 at 1009, Pain Scale Goal Less than or equal to 3 or to patient verbalized goal. Initial Infusion rate: 50 mcg/hour; Adjust hourly rate by 50% AND bolus 50% of new hourly rate every 15 minutes to achieve goal. Rate not to exceed 200 mcg/hr. Pain assessment every 15 minutes initially and reassess pain 15 minutes after each bolus given. Pain assessment MUST be documented prior to rate change. Rate/Dose Verify 04/12/2020 4:00 AM EDT 50 mcg/hr 1 mL/hr Rate/Dose Change 04/12/2020 2:30 AM EDT 50 mcg/hr 1 mL/hr fentaNYL bolus from VIAL 25-100 mcg Given 04/12/2020 12:15 AM EDT 50 mcg 25-100 mcg, Intravenous, EVERY 15 MIN PRN, Starting on Tue04/11/20 at 1726, Until 04/12/20 at 1009, Pain, Refer to infusion order for Bolus instructions. Reassess pain 15 minutes after bolus given., Routine Given 04/11/2020 11:48 PM EDT 50 mcg folic acid (Folvite) tablet 1,000 mcg Given 04/17/2020 8:56 AM EDT 1,000 mcg 1,000 mcg (1 mg), Oral, DAILY, First dose on 04/13/20 at 0900, Until Discontinued, Routine Given 04/16/2020 12:13 PM EDT 1,000 mcg Given 04/15/2020 8:34 AM EDT 1,000 mcg folic acid injection 1 mg Given 04/12/2020 10:31 AM EDT 1 mg 1 mg, Intravenous, DAILY, First dose on 04/12/20 at 0930, Until Discontinued, Routine gadoterate meglumine (DOTAREM) 0.5 mmol/mL Given 04/14/2020 6:15 PM EDT 16 mLs (376.9 mg/mL) injection 15.78 mL 15.78 mL (0.2 mL/kg/dose ? 78.9 kg), Intravenous, ONCE PRN, 1 dose, Starting on 04/14/20 at 1900, Until 04/14/20 at 1815, Per Protocol, Radiology Contrast, Routine iohexoL (Omnipaque) 350 mg/mL solution 1 50 mL Given 04/12/2020 1:41 AM EDT 45 mLs 150 mL, Intra-arterial, ONCE PRN, 1 dose, Starting on 04/12/20 at 0141, Until Sat 20 at 0141, Per Protocol, Warning Vesicant/Irritant Medication , Angio/IR (Intra-Procedure), Routine ketamine (KETALAR) injection 68 mg Given 04/11/2020 4:15 PM EDT 75 mg 68 mg (1 mg/kg/dose ? 68 kg), Intravenous, ONCE, 1 dose, On Tue04/11/20 at 1556, Routine lactated Ringers 1,000 mL IV bolus New Bag 04/11/2020 9:15 PM EDT 1000 mL/hr Intravenous, ONCE, 1 dose, On Tue04/11/20 at 1815 lactated Ringers 1,000 mL IV bolus New Bag 04/12/2020 9:07 AM EDT 1000 mL/hr at 1,000 mL/hr, Intravenous, ONCE, 1 dose, On Tue04/12/20 at 0800 lactated Ringers 1,000 mL IV bolus New Bag 04/12/2020 3:06 PM EDT 500 mL/hr at 500 mL/hr, Intravenous, ONCE, 1 dose, On Tue04/12/20 at 1515 lactated Ringers 1,000 mL IV bolus New Bag 04/13/2020 2:55 AM EDT 999 mL/hr Intravenous, ONCE, 1 dose, On Tue04/13/20 at 0230 lactated Ringers 1,000 mL IV bolus New Bag 04/13/2020 11:44 AM EDT 500 mL/hr at 500 mL/hr, Intravenous, ONCE, 1 dose, On Tue04/13/20 at 1115 lactated Ringers 500 mL IV bolus New Bag 04/13/2020 6:50 PM EDT 250 mL/hr Intravenous, ONCE, 1 dose, On Tue04/13/20 at 1845, DO NOT INFUSE WITH CEFTRIAXONE lactated Ringers 500 mL IV bolus New Bag 04/13/2020 8:30 PM EDT Intravenous, ONCE, 1 dose, On Tue04/13/20 at 2030, DO NOT INFUSE WITH CEFTRIAXONE - INCOMPATIBLE. lidocaine (LIDODERM) 5 Patch Applied 04/16/2020 8:06 PM 1 patch 20-Other (document % patch 1 patch EDT in comment 1 patch, Transdermal, sec tion) NIGHTLY, First dose on Tue04/15/20 at 2000, Until Discontinued, Apply patch(es) for 12 hours, and then remove for 12 hours, Routine Patch Applied 04/15/2020 8:04 PM EDT 1 patch 20-O ther (document in comment section) lidocaine (LIDODERM) patch REMOVAL Transdermal, DAILY, First dose on Tue at 0800, Until Discontinued, Remove lidocaine 5 %(700 mg/patch) patch multivitamin with minerals (THERA-M) tablet Given 04/01 8:56 AM EDT 1 tablet 1 tablet 1 tablet, Oral, DAILY, First dose on Tue04/11/20 at 1815, Until Discontinued, Routine Given 04/16/2020 12:13 PM EDT 1 tablet Given 04/15/2020 8:34 AM EDT 1 tablet NORepinephrine 16 mcg/mL New Bag 04/11/2020 4:47 PM EDT 10 mcg/min 37.5 mL/hr (standard ADULT and Pedi greater than 20 kg) infusion 1 mcg/min (3.75 mL/hr, rounded to 3.8 mL/hr), Intravenous, CONTINUOUS, Starting on Tue04/11/20 at 1647, Until Tue04/11/20 at 1701, Warning Vesicant/Irritant Medication , Routine NORepinephrine 16 mcg/mL Rate/Dose Change 04/13/2020 5:33 PM 4 mcg/mi n 15 mL/hr (standard ADULT and Pedi EDT greater than 20 kg) infusion 0-100 mcg/min (0-375 mL/hr), Intravenous, CONTINUOUS, Starting on Tue04/11/20 at 1703, Until Tue04/13/20 at 1857, Titrate to keep MAP greater than 60 mmHg. Start at 2 mcg/min and increase by 2 mcg/min every 3 minutes until goal reached. Do not exceed 200 mcg/min. Warning Vesicant/Irritant Medication, Routine Rate/Dose Change 04/13/2020 5:31 PM EDT 2 mcg/min 7.5 mL/hr Rate/Dose Change 04/13/2020 10:24 AM EDT 2 mcg/min 7.5 mL/hr NORepinephrine 16 mcg/mL Rate/Dose Change 04/14/2020 7:33 AM 1 mcg/ min 3.8 mL/hr (standard ADULT and Pedi EDT greater than 20 kg) infusion 0-100 mcg/min (0-375 mL/hr), Intravenous, CONTINUOUS, Starting on Tue04/14/20 at 0045, Until 04/14/20 at 0944, Titrate to keep MAP greater than 65 mmHg. Start at 2 mcg/min and increase by 2 mcg/min every 3 minutes until goal reached. Do not exceed 200 mcg/min. Warning Vesicant/Irritant Medication, Routine Rate/Dose Change 04/14/2020 3:26 AM EDT 2 mcg/min 7.5 mL/hr Rate/Dose Change 04/14/2020 12:34 AM EDT 4 mcg/min 15 mL/hr octreotide acetate (SandoSTATIN) New Bag 04/12/2020 2:47 AM ED T 50 mcg/hr 10 mL/hr 500 mcg in sodium chloride 0.9% 100 mL infusion 50 mcg/hr (10 mL/hr), Intravenous, CONTINUOUS, Starting on Tue04/11/20 at 1815, Until 04/12/20 at 0838 New Bag 04/11/2020 6:48 PM EDT 50 mcg/hr 10 mL/hr ondansetron (ZOFRAN) injection 8 mg Given 04/16/2020 4:44 AM EDT 8 mg 8 mg, Intravenous, EVERY 8 HOURS PRN, Starting on 04/12/20 at 1145, Until Niurka 04/17/20 at 1633, Nausea Given 04/15/2020 8:04 PM EDT 8 mg Given 04/13/2020 3:00 PM EDT 8 mg pantoprazole (PROTONIX) 80 mg in New Bag 04/13/2020 4:34 AM ED T 8 mg/hr 12 mL/hr sodium chloride 0.9% 120 mL infusion 8 mg/hr (12 mL/hr), Intravenous, CONTINUOUS, Starting on 04/12/20 at 0930, Until [place] 04/13/20 at 1021 New Bag 04/12/2020 9:24 AM EDT 8 mg/hr 12 mL/hr pantoprazole (PROTONIX) injection 40 mg Given 04/11/2020 9:27 PM EDT 40 mg 40 mg, Intravenous, 2 TIMES DAILY, First dose on Tue04/11/20 at 2100, Until Discontinued pantoprazole (PROTONIX) injection 40 mg Given 04/15/2020 8:04 PM EDT 40 mg 40 mg, Intravenous, 2 TIMES DAILY, 6 doses, First dose on 04/13/20 at 1115, Last dose on Tue04/15/20 at 2100 Given 04/15/2020 8:34 AM EDT 40 mg Given 04/14/2020 9:29 PM EDT 40 mg pantoprazole EC (Protonix) tablet 40 mg Given 04/17/2020 8:56 AM EDT 40 mg 40 mg, Oral, 2 TIMES DAILY, First dose on Tue04/16/20 at 0900, Until Discontinued, DO NOT CRUSH OR OPEN, Routine Given 04/16/2020 8:04 PM EDT 40 mg Given 04/16/2020 12:14 PM EDT 40 mg PHENYLephrine Rate/Dose Change 04/13/2020 7:50 PM 25 mcg/min 18.8 mL/ hr (ISABELLE-SYNEPHRINE) 20 mg in EDT sodium chloride 250 mL (standard ADULT & Pedi greater than 20kg) infusion 0-180 mcg/min (0-135 mL/hr), Intravenous, CONTINUOUS, Starting on Tue04/13/20 at 1845, Until Tue04/13/20 at 205, Titrate to maintain mean arterial pressure (MAP) greater than 60 mmHg. Start at 50 mcg/min and adjust dose by 25 mcg/min every 10 minutes. Do not exceed 180 mcg/min. Warning Vesicant/Irritant Medication New Bag 04/13/2020 6:57 PM EDT 50 mcg/min 37.5 mL/hr PHENYLephrine (ISABELLE-SYNEPHRINE) New Bag 04/13/2020 9:37 PM EDT 25 mcg/min 18.8 mL/hr 20 mg in sodium chloride 250 mL (standard ADULT & Pedi greater than 20kg) infusion 0-180 mcg/min (0-135 mL/hr), Intravenous, CONTINUOUS, Starting on Tue04/13/20 at 2245, Until Tue04/13/20 at 2349, Titrate to maintain mean arterial pressure (MAP) greater than 65 mmHg. Start at 50 mcg/min and adjust dose by 25 mcg/min every 10 minutes. Do not exceed 180 mcg/min. Warning Vesicant/Irritant Medication phytonadione (vitamin K1) New Bag 04/13/2020 9:48 AM EDT 10 mg 51 mL/hr (AQUA-MEPHYTON) 10 mg in sodium chloride 0.9% 51 mL 10 mg, Intravenous, DAILY, 3 doses, First dose on Tue04/12/20 at 0930, Last dose on Tue04/14/20 at 0900, Administer over 60 Minutes, Administer by slow IV infusion over 60 minutes New Bag 04/12/2020 10:33 AM EDT 10 mg 51 mL/hr phytonadione (vitamin K1) (Mephyton) tablet Given 04/15/2020 11:24 AM EDT 10 mg 10 mg 10 mg, Oral, DAILY, 2 doses, First dose on Tue04/14/20 at 0900, Last dose on Tue04/15/20 at 0900, Routine Given 04/14/2020 8:16 AM EDT 10 mg potassium chloride ER (K-Dur/Klor-Con) tablet Given 4:16 AM EDT 40 mEq 40 mEq 40 mEq, Oral, ONCE, 1 dose, On Tue04/14/20 at 0400, 20 mEq tablet may be dissolved in water for administration, Routine potassium chloride ER (K-Dur/Klor-Con) Given 04/14/2020 12:31 PM EDT 40 mEq tablet 40 mEq 40 mEq, Oral, ONCE, 1 dose, On Tue04/14/20 at 1200, 20 mEq tablet may be dissolved in water for administration, Routine potassium chloride ER (K-Dur/Klor-Con) Given 04/17/2020 12:12 PM EDT 40 mEq tablet 40 mEq 40 mEq, Oral, ONCE, 1 dose, On Niurka 04/17/20 at 1200, Routine propofoL (Diprivan) 10 mg/mL infusion 1 dose, Starting on Tue04/11/20 at 1555, Until Tue04/11/20 at 1556, Liz Weldon: cabinet override propofoL (Diprivan) Rate/Dose Change 04/12/2020 4:00 AM 15 mcg/kg/min 6.1 mL/hr infusion EDT 0-50 mcg/kg/min ? 68 kg (0-20.4 mL/hr), Intravenous, CONTINUOUS, Starting on Tue04/11/20 at 1900, Until 04/12/20 at 1009, Titrate to sedation level of RASS Goal (-)1 to 0 . Start at 20 mcg/kg/min, adjust rate by 10 mcg/kg/min every 3 minutes. Once stable, reassess patient every 30 minutes. Rate not to exceed 50 mcg/kg/minute. Change rate only after assessing and documenting RASS. Reassess sedation scores within 30 minutes after every rate change. If under sedated, increase rate by 10 mcg/kg/min. If over sedated, hold sedative until target RASS (-)1 to 0 achieved and then restart at 50% of previous rate. Call warehouse inventory clerk if goal not achieved at maximum rate. If SAT is ordered and if patient meets criteria for Spontaneous Awakening Trial, titrate per protocol., Routine New Bag 04/12/2020 2:49 AM EDT 20 mcg/kg/min 8.2 mL/hr Rate/Dose Change 04/12/2020 2:00 AM EDT 30 mcg/kg/min 12.2 mL/hr thiamine (B-1) injection 100 mg Given 04/12/2020 10:40 AM EDT 100 mg 100 mg, Intravenous, DAILY, First dose on 04/12/20 at 0930, Until Discontinued, Doses of 100 mg are to be administered as IV push over 5 minutes. Doses of 200 mg or more should be mixed in 50 mL 0.9% Sodium Chloride and infused over 30 minutes. thiamine (Vitamin B1) tablet 100 mg Given 04/17/2020 8:56 AM EDT 100 mg 100 mg, Oral, DAILY, First dose on 04/13/20 at 0900, Until Discontinued, Routine Given 04/16/2020 12:13 PM EDT 100 mg Given 04/15/2020 8:34 AM EDT 100 mg traMADoL (Ultram) tablet 25 mg Given 04/16/2020 5:51 AM EDT 25 mg 25 mg, Oral, ONCE, 1 dose, On Tue04/16/20 at 0545, Routine documented in this encounter Active and Recently Administered Medications Times are shown in EDT. Scheduled Medication Order 04/15/2020 04/16/2020 04/17/2020 acetaminophen (Tylenol) tablet 650 mg (COMPLETED) 035 (Given - Provider: Melissa Russell RN) 650 mg, Oral, ONCE, 1 dose, Tue04/16/20 at 0430, Maximum dose of acetaminophen is 4000 mg from all sources in 24 hours. When ordered for pain, acetaminophen should be given even when other ordered pain medications are indicated. , Routine acetaminophen (Tylenol) tablet 650 mg (COMPLETED) 032 (Given - Provider: Melissa Russell RN) 650 mg, Oral, ONCE, 1 dose, Niurka 04/17/20 at 0400, Maximum dose of acetaminophen is 4000 mg from all sources in 24 hours. When ordered for pain, acetaminophen should be given even when other ordered pain medications are indicated. , Routine cefTRIAXone (ROCEPHIN) 1 g vial attach t o sodium chloride 0.9% 50 mL Mini-Bag Plus (CANCELED) 1612 (New Bag - Provider: Katja Hdz RN)1642 (Stopped - Provider: Katja Hdz RN) 1 g, Intravenous, EVERY 24 HOURS, 6 dose s, First dose on 04/12/20 at 1600, Last dose on Niurka 04/17/20 at 1600, Administer over 30 Minutes, Indication for (Active or Suspected): GI/Intra-abdominal ciprofloxacin (Cipro) tablet 500 mg 1218 (Given - Provider: Eliza Jaramillo RN)1999 (Given - Provider: Melissa Russell RN) 0632 (Given - Provider: Melissa Russell RN) 500 mg, Oral, 2 TIMES DAILY, 8 doses, Fi rst dose on Tue04/16/20 at 0900, Last dose on 04/19/20 at 1900, Routine folic acid (Folvite) tablet 1,000 mcg 0834 (Given - Provider : Katja Hdz RN) 1213 (Given - Provider: Eliza Jaramillo RN) 0856 (Given - Provider: Eliza Jaramillo RN) 1,000 mcg (1 mg), Oral, DAILY, First dos e on Tue04/13/20 at 0900, Until Discontinued, Routine lidocaine (LIDODERM) 5 % patch 1 patch(Linked Group 1) 2003 (Patch Applied - Provider: Melissa Russell RN - Comment: right upper quadrant) 2005 (Patch Applied - Provider: Melissa Russell RN - Comment: mid upper abd) 1 patch, Transdermal, NIGHTLY, First dos e on Tue04/15/20 at 2000, Until Discontinued, Apply patch(es) for 12 hours, and then remove for 12 hours, Routine lidocaine (LIDODERM) patch REMOVAL(Linked Group 1) 0800 (Patch Not Removed (add comment) - Provider: Eliza Jaramillo RN - Comment: pt removed it during night) 0900 (Patch Removed - Provider: Eliza Jaramillo RN) Transdermal, DAILY, First dose on Tue at 0800, Until Discontinued, Remove lidocaine 5 %(700 mg/patch) patch multivitamin with minerals (THERA-M) tablet 1 tablet 0 834 (Given - Provider: Katja Hdz RN) 1213 (Given - Provider: Eliza Jaramillo, ARANZA) 0856 (Giv en - Provider: Eliza Jaramillo RN) 1 tablet, Oral, DAILY, First dose on Tue04/11/20 at 1815, Until Discontinued, Routine pantoprazole (PROTONIX) injection 40 mg (COMPLETED) 08 34 (Given - Provider: Katja Hdz RN)2003 (Given - Provider: Melissa Russell, ARANZA) 40 mg, Intravenous, 2 TIMES DAILY, 6 dos es, First dose on Tue04/13/20 at 1115, Last dose on Tue04/15/20 at 2100 pantoprazole EC (Protonix) tablet 40 mg 1214 (Given - Provider: Eliza Jaramillo RN)2003 (Given - Provider: Meilssa Russell, ARANZA) 0856 (Given - Provider: Eliza Jaramillo RN) 40 mg, Oral, 2 TIMES DAILY, First dose o n Tue04/16/20 at 0900, Until Discontinued, DO NOT CRUSH OR OPEN, Routine phytonadione (vitamin K1) (Mephyton) tablet 10 mg (COM PLETED) 1124 (Given - Provider: Katja Hdz RN) 10 mg, Oral, DAILY, 2 doses, First dose on Tue04/14/20 at 0900, Last dose on Tue04/15/20 at 0900, Routine potassium chloride ER (K-Dur/Klor-Con) tablet 40 mEq (COMPLETED) 1212 (Given - Provider: Eliza Jaramillo RN) 40 mEq, Oral, ONCE, 1 dose, Niurka 04/17/20 at 1200, Routine senna-docusate (Pericolace) 8.6-50 mg per tablet 2 tab let 0900 (Not Given - Provider: Katja Hdz RN - Reason: Patient/family refused)2100 (Not Given - Provider: Melissa Russell RN - Reason: Patient/family refused) 1227 (Not Given - Provider: Eliza Jaramillo RN - Reason: Patient/family refused)2100 (Not Given - Provider: Melissa Russell RN - Reason: Patient/family refused) 0900 (Not Given - Provider: Eliza Jaramillo RN - Reason: Patient/family refused) 2 tablet, Oral, 2 TIMES DAILY, First dos e on Tue04/11/20 at 2100, Until Discontinued, Routine thiamine (Vitamin B1) tablet 100 mg 0834 (Given - Provider: Katja Hdz RN) 1213 (Given - Provider: Eliza Jaramillo RN) 0856 (Given - Provider: Eliza Jaramillo RN) 100 mg, Oral, DAILY, First dose on Tue at 0900, Until Discontinued, Routine traMADoL (Ultram) tablet 25 mg (COMPLETED) 550 (Given - Provider: Melissa Russell RN) 25 mg, Oral, ONCE, 1 dose, Tue04/16/20 at 0545, Routine PRN Medication Order 04/15/2020 04/16/2020 04/17/2020 ondansetron (ZOFRAN) injection 8 mg 2003 (Given - Prov ider: Melissa Russell RN) 443 (Given - Provider: Melissa Russell RN) 8 mg, Intravenous, EVERY 8 HOURS PRN, St arting 04/12/20 at 1145, Until Niurka 04/17/20 at 1633, Nausea sodium chloride 0.9% infusion 10 mL/hr, at 10 mL/hr, Intravenous, CONT INUOUS PRN, Starting Tue04/11/20 at 1726, Until Niurka 04/17/20 at 1633 Linked Groups Order Group 1: lidocaine (LIDODERM) 5 % patch 1 patchJump to med 1 patch, Transdermal, NIGHTLY, First dos e on Tue04/15/20 at 2000, Until Discontinued
Apply patch(es) for 12 hours, and then remove for 12 hours
Routine And lidocaine (LIDODERM) patch REMOVALJump to med Transdermal, DAILY, First dose on Tue at 0800, Until Discontinued
Remove lidocaine 5 %(700 mg/patch) patch
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
--- OUTSIDE RECORDS SUMMARY | 2022-04-22 08:35 | XMS_ITS | Encounter Summary ---
:1980 Author Organization [facility] [place] [address] Care Team Providers Name Role Phone Odell Julieta Lizzy ESPOSITO Primary Care Provider [phone] Reason for Referral Consultation (Routine) - Closed Specialty Diagnoses / Procedures Referred By Contact Refer red To Contact Gastroenterology Diagnoses Gastrointestinal hemorrhage, unspecified gastrointestinal hemorrhage type Alcoholic cirrhosis of liver with ascites Kei Nunes, [facility] [address] [place] [facility] [id number] [place] [address] Referral ID Status Reason Start Date Expiration Date Visits V isits Requested Authorized [id number] Closed Consult, 04/15/2020 04/15/2021 1 1 Test & Treat Encounter Details Date Type Department Care Team Description 04/15/2020 Orders Only Gastroenterology at [facility] [place] Manju Gastrointestinal hemorrhage, unspecified gastrointestinal hemorrhage type; [facility] Jordy Wells MD Alcoholic cirrhosis [place] [address] [facility] [phone] [place] [address] Social History Tobacco Use Types Packs/Day Years Used Date Never Assessed Alcohol Habits Answer Date Recorded How often do you have a drink containing 4 or more times a w lower [place] 06/21/2020 alcohol? How many drinks containing alcohol do you have 1 or 2 06/21/2020 on a typical day when you are drinking? How often do you have six or more drinks on one Not asked 06/21/2020 occasion? Comment: Not asked Sex Assigned at Date Recorded Not on file documented as of this encounter Plan of Treatment Scheduled Referrals Name Type Priority Associated Diagnoses Order S chedule Referral to Outpatient Routine Gastrointestinal Ordered: Gastroenterology Referral hemorrhage, 04/15/2020 unspecified gastrointestinal hemorrhage type Alcoholic cirrhosis of liver with ascites documented as of this encounter Visit Diagnoses Diagnosis Gastrointestinal hemorrhage, unspecified gastrointestinal hemorrhage type Alcoholic cirrhosis of liver with ascite s Alcoholic cirrhosis of liver documented in this encounter Care Teams Lacquer Shader Relationship Specialty Start Date End Date Julieta Odell, ENTERPRISE MOBILITY ARCHITECT PCP - General Family Medicine 04/11/20 [address] [place] [address] documented as of this encounter
--- OUTSIDE RECORDS SUMMARY | 2022-04-22 08:38 | XMS_ITS | CCD ---
:1980 Author Care Team Providers Name Role Phone BRYN PEREZ Attending Physician Unavailable BRYN PEREZ Rounding (Secondary) Physician Unavailab jackie Vital Signs Unknown or Not Available. Allergies Unknown or Not Available. Procedures Unknown or Not Available. History of Immunizations Unknown or Not Available. Problems Problem Code Start Date Resolved Date Status Hemorrhagic anemia 614691499 Active Upper gastrointestinal hemorrhage 01836940 Active Acute kidney failure stage 3 523553293 Active Results Unknown or Not Available. Active Medications Medication Code Dose Units Frequency Route Modification Start Date/Time Ferrous 19850930 1 TABLET THREE TIMES A ORAL 07/31/2019 Gluconate 325MG DAY 10:42 Oral Tablet Prescription Detail TAKE 1 TABLET ORAL THREE RACHEL ES A DAY Pantoprazole Sodium [id number] 40 MILLIGRAMS TWICE A DAY ORAL 07/31/2019 10:42 40MG Oral Tablet, Enteric Coated Prescription Detail TAKE 40 MILLIGRAMS ORAL TWIC E A DAY Medications Administered During Visit Unknown or Not Available. 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 Discharge Instructions You were admitted to [facility] on 09/29/2021 13:46 with a principal diagnosis of Plantar fascial fibromatosis You were discharged from [facility] on 09/29/2021 00:00 Should you have any questions prior to d ischarge, please contact a member of your healthcare team. If you have left the spital and have any questions, please contact your primary care physician. Chief Complaint and Reason For Visit Unknown or Not Available. Function Status Unknown or Not Available. Plan of Care Unknown or Not Available. Referral/Transition of Care Unknown or Not Available.
--- OUTSIDE RECORDS SUMMARY | 2022-04-22 08:39 | XMS_ITS | CCD ---
:1980 Author Care Team Providers Name Role Phone CUCO SINGH Attending Physician Unavailable Vital Signs Vital Sign Value Unit Date/Time Recent/Initial? BP Systolic 118 mmHg 10/19/2021 07:37 Initial VS BP Diastolic 75 mmHg 10/19/2021 07:37 Initial VS Respiratory Rate 16 bpm 10/19/2021 07:37 Initial VS Heart Rate 72 bpm 10/19/2021 07:37 Initial VS O2 % BldC Oximetry 97 % 10/19/2021 07:37 Initi al VS Body Temperature 98.7 degrees 10/19/2021 07:37 Initial VS BP Systolic 118 mmHg 10/19/2021 09:09 Most Recent VS BP Diastolic 82 mmHg 10/19/2021 09:09 Most Recent VS Respiratory Rate 16 bpm 10/19/2021 09:09 Most Re cent VS Heart Rate 72 bpm 10/19/2021 09:09 Most Recent VS O2 % BldC Oximetry 97 % 10/19/2021 09:09 Most Recent VS Allergies Allergy Code Allergy Type Reaction Status No Known Drug Allergies 0 No known drug allergies Active Procedures Unknown or Not Available. History of Immunizations Unknown or Not Available. Problems Problem Code Start Date Resolved Date Status Hemorrhagic anemia 679924373 Active Upper gastrointestinal hemorrhage 93405386 Active Acute kidney failure stage 3 502481051 Active Results Unknown or Not Available. Active Medications Medications Administered During Visit Unknown or Not Available. Encounters Unknown or Not Available. Social History Smoking Status Code Start Date End Date Never smoker [id number] Patient Decision Aids Unknown or Not Available. Discharge Instructions You were admitted to [facility] on 10/19/2021 14:54 You were discharged from [facility] on 10/19/2021 14:54 Should you have any questions prior to d ischarge, please contact a member of your healthcare team. If you have left the ho spital and have any questions, please contact your primary care physician. Chief Complaint and Reason For Visit Unknown or Not Available. Function Status Unknown or Not Available. Plan of Care Unknown or Not Available. Referral/Transition of Care Unknown or Not Available.
--- OUTSIDE RECORDS SUMMARY | 2022-04-22 08:39 | XMS_ITS | CCD ---
:1980 Author Care Team Providers Name Role Phone SERGE SALMERON Attending Physician Unavailable SERGE SALMERON Rounding (Secondary) Physician Unavailab le Vital Signs Unknown or Not Available. Allergies Allergy Code Allergy Type Reaction Status No Known Drug Allergies 0 No known drug allergies Active Procedures Unknown or Not Available. History of Immunizations Unknown or Not Available. Problems Problem Code Start Date Resolved Date Status Hemorrhagic anemia 714399230 Active Upper gastrointestinal hemorrhage 00865418 Active Acute kidney failure stage 3 392314183 Active Results Unknown or Not Available. Active Medications Medication Code Dose Units Frequency Route Modification Start Date/Time Ferrous 669581 1 TABLET THREE TIMES A ORAL 07/31/2019 Gluconate 325MG DAY 10:42 Oral Tablet Prescription Detail TAKE 1 TABLET ORAL THREE RACHEL ES A DAY Pantoprazole Sodium 354365 40 MILLIGRAMS TWICE A DAY ORAL 07/31/2019 10:42 40MG Oral Tablet, Enteric Coated Prescription Detail TAKE 40 MILLIGRAMS ORAL TWIC E A DAY Medications Administered During Visit Unknown or Not Available. Encounters Encounter Diagnosis Diagnosis Code Start Date Paroxysmal atrial fibrillation I480 2 Social History Smoking Status Code Start Date End Date Never smoker [id number] Patient Decision Aids Unknown or Not Available. Discharge Instructions You were admitted to [facility] on 11/19/2021 15:11 with a principal diagnosis of Paroxysmal atrial fibrillation You were discharged from [facility] on 11/19/2021 00:00 Should you have any questions prior [...]
--- OUTSIDE RECORDS SUMMARY | 2022-04-22 08:39 | XMS_ITS | CCD ---
:1980 Author Care Team Providers Name Role Phone BRYN PEREZ Attending Physician Unavailable Vital Signs Unknown or Not Available. Allergies Unknown or Not Available. Procedures Unknown or Not Available. History of Immunizations Unknown or Not Available. Problems Problem Code Start Date Resolved Date Status Hemorrhagic anemia 814273702 Active Upper gastrointestinal hemorrhage 35595055 Active Acute kidney failure stage 3 590608429 Active Results Unknown or Not Available. Active Medications Medication Code Dose Units Frequency Route Modification Start Date/Time Ferrous 19850930 1 TABLET THREE TIMES A ORAL 07/31/2019 Gluconate 325MG DAY 10:42 Oral Tablet Prescription Detail TAKE 1 TABLET ORAL THREE RACHEL ES A DAY Pantoprazole Sodium 533338 40 MILLIGRAMS TWICE A DAY ORAL 07/31/2019 10:42 40MG Oral Tablet, Enteric Coated Prescription Detail TAKE 40 MILLIGRAMS ORAL TWIC E A DAY Medications Administered During Visit Unknown or Not Available. Encounters Encounter Diagnosis Diagnosis Code Start Date Abnormal findings on diagnostic imaging of limbs [id number] 09/11/2021 Social History Smoking Status Code Start Date End Date Never smoker 914440153 Patient Decision Aids Unknown or Not Available. Discharge Instructions You were admitted to [facility] on 09/11/2021 00:33 with a principal diagnosis of Abnormal findings on diagnostic imagi ng of limbs You were discharged from [facility] on 09/11/2021 00:33 Should you have any questions prior to d ischarge, please contact a member of your healthcare team. If you have left the ho spital and have any questions, please contact your primary care physician. Chief Complaint and Reason For Visit Chief Complaint Date of Onset CHRONIC PAIN, PLANTAR FASCITIS EVAL HEEL AND PLANTAR FASCIAL INSERTION Function Status Unknown or Not Available. Plan of Care Unknown or Not Available. Referral/Transition of Care Unknown or Not Available.
--- OUTSIDE RECORDS SUMMARY | 2022-04-22 08:39 | XMS_ITS | CCD ---
:1980 Author Care Team Providers Name Role Phone BRYN PEREZ DPM Attending Physician Unavailable Vital Signs Unknown or Not Available. Allergies Unknown or Not Available. Procedures Unknown or Not Available. History of Immunizations Unknown or Not Available. Problems Problem Code Start Date Resolved Date Status Hemorrhagic anemia 863802707 Active Upper gastrointestinal hemorrhage 80721714 Active Acute kidney failure stage 3 769316821 Active Results Unknown or Not Available. Active Medications Medication Code Dose Units Frequency Route Modification Start Date/Time Ferrous 583690 1 TABLET THREE TIMES A ORAL 07/31/2019 Gluconate 325MG DAY 10:42 Oral Tablet Prescription Detail TAKE 1 TABLET ORAL THREE RACHEL ES A DAY Pantoprazole Sodium 061029 40 MILLIGRAMS TWICE A DAY ORAL 07/31/2019 10:42 40MG Oral Tablet, Enteric Coated Prescription Detail TAKE 40 MILLIGRAMS ORAL TWIC E A DAY Medications Administered During Visit Unknown or Not Available. Encounters Encounter Diagnosis Diagnosis Code Start Date Plantar fascial fibromatosis 93619707 03/17/2021 Social History Smoking Status Code Start Date End Date Never smoker [id number] Patient Decision Aids Unknown or Not Available. Discharge Instructions You were admitted to [facility] on 03/17/2021 15:17 with a principal diagnosis of Plantar fascial fibromatosi s You were discharged from [facility] on 03/17/2021 15:18 Should you have any questions prior to [...]
[2022-04-22 16:01] LABS: Abs Immature Grans 0.02 10^3/uL (0.0-0.06); Absolute Basophil Count 0.07 10^3/uL (0.0-0.2); Absolute Eosinophil Count 0.16 10^3/uL (0.0-0.7); Absolute Lymphocyte Count 1.99 10^3/uL (1.2-3.4); Absolute Monocyte Count 0.75 10^3/uL (0.1-0.8); Absolute Neutrophil Count 5.63 10^3/uL (1.2-6.7); Basophils % 0.8; Eosinophils % 1.9; HCT 35.1 % (36.0-46.0); HGB 10.3 g/dL (11.2-15.7); Immature Grans % 0.2; Lymphocytes % 23.1; MCH 18.7 pg (27.0-33.0); MCHC 29.3 % (32.0-36.0); MCV 64 fL (80-95); MPV 10.4 fL (8.0-11.0); Monocytes % 8.7; Neutrophils % 65.3; Platelet Count 395 10^3/uL (130-400); RBC 5.52 10^6/uL (3.93-5.22); RDW 16.5 % (11.7-14.6); RDW-SD 36.7 fL; WBC 8.62 10^3/uL (4.4-10.8)
== END 2022-04-22 08:22 | disposition home or self-care (01) ==
LOC: LBN 08:21
PROVIDERS: PCP Family Medicine; Visit Provider Internal Medicine
DX: K70.31 Alcoholic cirrhosis of liver with ascites (principal)
CPT/HCPCS: 85025

== ENCOUNTER 2022-05-14 11:01 | Outpatient (REF) | payer BC, SELFPAY ==
[2022-05-14 16:41] LABS: Abs Immature Grans 0.02 10^3/uL (0.0-0.06); Absolute Basophil Count 0.07 10^3/uL (0.0-0.2); Absolute Eosinophil Count 0.16 10^3/uL (0.0-0.7); Absolute Lymphocyte Count 1.78 10^3/uL (1.2-3.4); Absolute Monocyte Count 0.79 10^3/uL (0.1-0.8); Absolute Neutrophil Count 5.71 10^3/uL (1.2-6.7); Basophils % 0.8; Eosinophils % 1.9; HCT 32.5 % (36.0-46.0); HGB 9.5 g/dL (11.2-15.7); Immature Grans % 0.2; Lymphocytes % 20.9; MCH 18.4 pg (27.0-33.0); MCHC 29.2 % (32.0-36.0); MCV 63 fL (80-95); MPV 10.2 fL (8.0-11.0); Monocytes % 9.3; Neutrophils % 66.9; Platelet Count 411 10^3/uL (130-400); RBC 5.16 10^6/uL (3.93-5.22); RDW-SD 37.3 fL; WBC 8.53 10^3/uL (4.4-10.8)
[2022-05-14 16:56] LABS: Prothrombin Time 9.7 sec (9.3-11.0)
[2022-05-14 17:10] LABS: ALT 28 U/L (14-59); AST 28 U/L (15-37); Albumin 3.7 g/dL (3.4-5.0); Alkaline Phosphatase 54 U/L (46-116); BUN 11 mg/dL (7-18); Bilirubin, Total 0.4 mg/dL (0.2-1.0); CREATININE 0.9 mg/dL (0.55-1.02); Calcium 8.7 mg/dL (8.5-10.1); Chloride 105 mmol/L (98-107); Estimated GFR 81.35 (mL/min/1.73m2); Glucose 88 mg/dL (74-106); Potassium 4.2 mmol/L (3.5-5.1); Sodium 139 mmol/L (136-145); Total Protein 7.4 g/dL (6.4-8.2)
[2022-05-14 17:43] LABS: Anisocytosis 1+; Diff Comment RBC Morph Reviewed; Hypochromasia 1+; Microcytosis 2+
[2022-05-14 17:44] LABS: Poikilocytes 1+
[2022-05-17 12:56] LABS: AFP Tumor Marker 5.8 ng/mL (<8.1)
== END 2022-05-14 11:02 | disposition home or self-care (01) ==
LOC: LBN 11:01
PROVIDERS: PCP Family Medicine; Visit Provider Internal Medicine
DX: K70.31 Alcoholic cirrhosis of liver with ascites (principal)
CPT/HCPCS: 80053; 82105; 85025; 85610

== ENCOUNTER 2022-09-15 10:08 | Outpatient (REF) | payer BC, SELFPAY ==
[2022-09-15 14:19] LABS: Abs Immature Grans 0.03 10^3/uL (0.0-0.06); Absolute Basophil Count 0.07 10^3/uL (0.0-0.2); Absolute Eosinophil Count 0.17 10^3/uL (0.0-0.7); Absolute Lymphocyte Count 1.57 10^3/uL (1.2-3.4); Absolute Monocyte Count 0.65 10^3/uL (0.1-0.8); Absolute Neutrophil Count 5.26 10^3/uL (1.2-6.7); Basophils % 0.9; Eosinophils % 2.2; HCT 35.1 % (36.0-46.0); HGB 10.2 g/dL (11.2-15.7); Immature Grans % 0.4; Lymphocytes % 20.3; MCH 18.4 pg (27.0-33.0); MCHC 29.1 % (32.0-36.0); MCV 63 fL (80-95); MPV 10.2 fL (8.0-11.0); Monocytes % 8.4; Neutrophils % 67.8; Platelet Count 440 10^3/uL (130-400); RBC 5.54 10^6/uL (3.93-5.22); RDW 18.6 % (11.7-14.6); RDW-SD 39.8 fL; WBC 7.75 10^3/uL (4.4-10.8)
== END 2022-09-15 10:09 | disposition home or self-care (01) ==
LOC: NCHCN 10:08
PROVIDERS: PCP Family Medicine; Visit Provider Registered Nurse
DX: D64.9 Anemia, unspecified (principal)
CPT/HCPCS: 85025

== ENCOUNTER 2022-11-23 16:54 | Outpatient (REF) | payer BC, SELFPAY ==
[2022-11-23 15:19] LABS: Abs Immature Grans 0.01 10^3/uL (0.0-0.06); Absolute Basophil Count 0.05 10^3/uL (0.0-0.2); Absolute Eosinophil Count 0.13 10^3/uL (0.0-0.7); Absolute Lymphocyte Count 1.56 10^3/uL (1.2-3.4); Absolute Monocyte Count 0.34 10^3/uL (0.1-0.8); Absolute Neutrophil Count 4.41 10^3/uL (1.2-6.7); Basophils % 0.8; HCT 42.1 % (36.0-46.0); HGB 12.7 g/dL (11.2-15.7); Immature Grans % 0.2; MCHC 30.2 % (32.0-36.0); MCV 73 fL (80-95); MPV 10.1 fL (8.0-11.0); Monocytes % 5.2; Neutrophils % 67.8; Platelet Count 308 10^3/uL (130-400); RBC 5.78 10^6/uL (3.93-5.22); RDW 25.1 % (11.7-14.6); RDW-SD 61.2 fL
[2022-11-23 15:31] LABS: Prothrombin Time 9.7 sec (9.3-11.0)
[2022-11-23 15:51] LABS: ALT 27 U/L (14-59); AST 24 U/L (15-37); Alkaline Phosphatase 60 U/L (46-116); Anion Gap 6.8 mmol/L (3-11); BUN 12 mg/dL (7-18); Bilirubin, Total 0.3 mg/dL (0.2-1.0); CO2 28.2 mmol/L (21.0-32.0); Chloride 105 mmol/L (98-107); Estimated GFR 71.69 (mL/min/1.73m2); Glucose 120 mg/dL (74-106); Potassium 4.1 mmol/L (3.5-5.1); Sodium 140 mmol/L (136-145); Total Protein 7.9 g/dL (6.4-8.2)
[2022-11-23 16:31] LABS: Anisocytosis 2+; Diff Comment RBC Morph Reviewed; Microcytosis 2+
[2022-11-24 09:16] LABS: AFP Tumor Marker 5.9 ng/mL (<8.1)
== END 2022-11-23 16:55 | disposition home or self-care (01) ==
LOC: NCHCN 16:54
PROVIDERS: PCP Family Medicine; Visit Provider Family Medicine
DX: K70.31 Alcoholic cirrhosis of liver with ascites (principal)
CPT/HCPCS: 80053; 82105; 85025; 85610

== ENCOUNTER 2022-12-28 08:34 | Outpatient (REF) | payer BC, SELFPAY ==
[2022-12-28 15:19] LABS: HCT 44.4 % (36.0-46.0); HGB 13.6 g/dL (11.2-15.7); MCH 23.3 pg (27.0-33.0); MCHC 30.6 % (32.0-36.0); MCV 76 fL (80-95); Platelet Count 339 10^3/uL (130-400); RBC 5.83 10^6/uL (3.93-5.22); RDW 21.1 % (11.7-14.6); RDW-SD 55.8 fL; WBC 7.19 10^3/uL (4.4-10.8)
[2022-12-28 16:06] LABS: Ferritin 22 ng/mL (8-252)
== END 2022-12-28 08:35 | disposition home or self-care (01) ==
LOC: NCHCN 08:34
PROVIDERS: PCP Family Medicine; Visit Provider Registered Nurse
DX: D64.9 Anemia, unspecified (principal)
CPT/HCPCS: 85027; 82728

== ENCOUNTER 2023-02-07 12:55 | Outpatient (REF) | payer BC, SELFPAY ==
[2023-02-07 15:29] LABS: Abs Immature Grans 0.04 10^3/uL (0.0-0.06); Absolute Basophil Count 0.07 10^3/uL (0.0-0.2); Absolute Lymphocyte Count 1.86 10^3/uL (1.2-3.4); Absolute Monocyte Count 0.61 10^3/uL (0.1-0.8); Absolute Neutrophil Count 5.44 10^3/uL (1.2-6.7); Basophils % 0.9; Eosinophils % 2.4; HGB 10.5 g/dL (11.2-15.7); Immature Grans % 0.5; Lymphocytes % 22.6; MCH 21.7 pg (27.0-33.0); MCV 72 fL (80-95); MPV 10.6 fL (8.0-11.0); Monocytes % 7.4; Neutrophils % 66.2; Platelet Count 393 10^3/uL (130-400); RBC 4.84 10^6/uL (3.93-5.22); RDW 15.3 % (11.7-14.6); RDW-SD 39.8 fL; WBC 8.22 10^3/uL (4.4-10.8)
== END 2023-02-07 12:56 | disposition home or self-care (01) ==
LOC: LBN 12:55
PROVIDERS: PCP Family Medicine; Visit Provider Internal Medicine Gastroenterology
DX: K25.9 Gastric ulcer, unspecified as acute or chronic, without hemorrhage or perforation (principal); D64.9 Anemia, unspecified
CPT/HCPCS: 85025

== ENCOUNTER 2023-03-09 09:23 | Outpatient (REF) | payer BC, SELFPAY ==
[2023-03-09 15:42] LABS: Abs Immature Grans 0.01 10^3/uL (0.0-0.06); Absolute Basophil Count 0.05 10^3/uL (0.0-0.2); Absolute Eosinophil Count 0.23 10^3/uL (0.0-0.7); Absolute Monocyte Count 0.55 10^3/uL (0.1-0.8); Absolute Neutrophil Count 4.85 10^3/uL (1.2-6.7); Basophils % 0.7; Eosinophils % 3.2; HCT 33.3 % (36.0-46.0); HGB 9.8 g/dL (11.2-15.7); Immature Grans % 0.1; Lymphocytes % 20.9; MCHC 29.4 % (32.0-36.0); MCV 68 fL (80-95); MPV 10.8 fL (8.0-11.0); Monocytes % 7.6; Neutrophils % 67.5; Platelet Count 382 10^3/uL (130-400); RBC 4.89 10^6/uL (3.93-5.22); RDW 15.9 % (11.7-14.6); RDW-SD 39.1 fL; WBC 7.19 10^3/uL (4.4-10.8)
[2023-03-09 16:03] LABS: Hemoglobin A1C 5.3 % (<5.7)
[2023-03-09 16:20] LABS: Diff Comment RBC Morph Reviewed
[2023-03-09 16:22] LABS: Microcytosis 2+
== END 2023-03-09 09:24 | disposition home or self-care (01) ==
LOC: LBN 09:23
PROVIDERS: Registered Nurse; PCP Family Medicine; Visit Provider Internal Medicine Gastroenterology
DX: D64.9 Anemia, unspecified (principal); K25.9 Gastric ulcer, unspecified as acute or chronic, without hemorrhage or perforation; R73.9 Hyperglycemia, unspecified
CPT/HCPCS: 83036; 85025

== ENCOUNTER 2023-03-21 13:07 | Outpatient (REF) | payer BC, SELFPAY ==
[2023-03-21 16:08] LABS: Iron 14 ug/dL (50-170); Total Iron Binding Capacity 428 ug/dL (250-450); Transferrin Sat 3 % (15-50)
[2023-03-21 16:40] LABS: Ferritin 4 ng/mL (8-252); Vitamin B12 379 pg/mL (193-986)
== END 2023-03-21 13:08 | disposition home or self-care (01) ==
LOC: LBN 13:07
PROVIDERS: PCP Family Medicine; Visit Provider Internal Medicine Gastroenterology
DX: D64.9 Anemia, unspecified (principal); Z86.2 Personal history of diseases of the blood and blood-forming organs and certain disorders involving the immune mechanism
CPT/HCPCS: 82607; 82728; 83540; 83550

== ENCOUNTER 2023-04-01 10:01 | Outpatient (REF) | payer BC, SELFPAY ==
[2023-04-01 15:46] LABS: Abs Immature Grans 0.03 10^3/uL (0.0-0.06); Absolute Basophil Count 0.06 10^3/uL (0.0-0.2); Absolute Eosinophil Count 0.18 10^3/uL (0.0-0.7); Absolute Lymphocyte Count 1.99 10^3/uL (1.2-3.4); Absolute Monocyte Count 0.71 10^3/uL (0.1-0.8); Basophils % 0.7; HCT 35.4 % (36.0-46.0); HGB 10.3 g/dL (11.2-15.7); Immature Grans % 0.3; Lymphocytes % 21.7; MCH 19.1 pg (27.0-33.0); MCHC 29.1 % (32.0-36.0); MCV 66 fL (80-95); MPV 11.1 fL (8.0-11.0); Monocytes % 7.7; Neutrophils % 67.6; Platelet Count 415 10^3/uL (130-400); RDW 16.7 % (11.7-14.6); RDW-SD 38.3 fL; WBC 9.17 10^3/uL (4.4-10.8)
[2023-04-01 16:13] LABS: Diff Comment RBC Morph Reviewed; Hypochromasia 1+; Microcytosis 2+
[2023-04-01 16:14] LABS: Poikilocytes 1+
[2023-04-01 16:45] LABS: Ferritin 4 ng/mL (8-252)
[2023-04-01 18:56] LABS: Iron 23 ug/dL (50-170); Total Iron Binding Capacity 422 ug/dL (250-450)
== END 2023-04-01 10:02 | disposition home or self-care (01) ==
LOC: LBN 10:01
PROVIDERS: PCP Family Medicine; Visit Provider Nurse Practitioner
DX: D50.0 Iron deficiency anemia secondary to blood loss (chronic) (principal)
CPT/HCPCS: 82728; 83540; 83550; 85025

== ENCOUNTER 2023-06-09 15:53 | Outpatient (REF) | payer BC, SELFPAY ==
[2023-06-09 16:12] LABS: Abs Immature Grans 0.02 10^3/uL (0.0-0.06); Absolute Basophil Count 0.04 10^3/uL (0.0-0.2); Absolute Eosinophil Count 0.25 10^3/uL (0.0-0.7); Absolute Lymphocyte Count 1.49 10^3/uL (1.2-3.4); Absolute Monocyte Count 0.59 10^3/uL (0.1-0.8); Absolute Neutrophil Count 5.67 10^3/uL (1.2-6.7); Basophils % 0.5; Eosinophils % 3.1; HCT 45.5 % (36.0-46.0); Immature Grans % 0.2; Lymphocytes % 18.5; MCH 22.6 pg (27.0-33.0); MCHC 30.8 % (32.0-36.0); MCV 74 fL (80-95); MPV 10.6 fL (8.0-11.0); Monocytes % 7.3; Neutrophils % 70.4; Platelet Count 364 10^3/uL (130-400); RBC 6.19 10^6/uL (3.93-5.22); WBC 8.06 10^3/uL (4.4-10.8)
[2023-06-09 16:30] LABS: Iron 79 ug/dL (50-170); Total Iron Binding Capacity 325 ug/dL (250-450)
[2023-06-09 16:40] LABS: Ferritin 94 ng/mL (8-252)
[2023-06-09 17:41] LABS: Anisocytosis 3+; Diff Comment RBC Morph Reviewed; Hypochromasia 1+; Microcytosis 2+; Poikilocytes 1+
== END 2023-06-09 15:54 | disposition home or self-care (01) ==
LOC: LBN 15:53
PROVIDERS: PCP Family Medicine; Visit Provider Nurse Practitioner
DX: D50.0 Iron deficiency anemia secondary to blood loss (chronic) (principal)
CPT/HCPCS: 82728; 83540; 83550; 85025

== ENCOUNTER 2023-08-09 09:40 | Outpatient (REF) | payer BC, SELFPAY ==
[2023-08-09 17:35] LABS: Abs Immature Grans 0.02 10^3/uL (0.0-0.06); Absolute Basophil Count 0.04 10^3/uL (0.0-0.2); Absolute Eosinophil Count 0.11 10^3/uL (0.0-0.7); Absolute Lymphocyte Count 1.32 10^3/uL (1.2-3.4); Absolute Monocyte Count 0.35 10^3/uL (0.1-0.8); Absolute Neutrophil Count 4.64 10^3/uL (1.2-6.7); Basophils % 0.6; Eosinophils % 1.7; HCT 45.4 % (36.0-46.0); HGB 14.4 g/dL (11.2-15.7); Immature Grans % 0.3; Lymphocytes % 20.4; MCH 25.5 pg (27.0-33.0); MCHC 31.7 % (32.0-36.0); MCV 80 fL (80-95); MPV 10.7 fL (8.0-11.0); Monocytes % 5.4; Neutrophils % 71.6; Platelet Count 379 10^3/uL (130-400); RBC 5.65 10^6/uL (3.93-5.22); RDW 14.8 % (11.7-14.6); RDW-SD 42.3 fL; WBC 6.48 10^3/uL (4.4-10.8)
[2023-08-09 17:46] LABS: Prothrombin Time 9.9 sec (9.1-11.1)
[2023-08-09 17:50] LABS: ALT 15 U/L (14-59); AST 23 U/L (15-37); Albumin 3.8 g/dL (3.4-5.0); Alkaline Phosphatase 42 U/L (46-116); Anion Gap 8.3 mmol/L (3-11); BUN 14 mg/dL (7-18); Bilirubin, Total 0.3 mg/dL (0.2-1.0); CO2 23.7 mmol/L (21.0-32.0); CREATININE 1.1 mg/dL (0.55-1.02); Chloride 106 mmol/L (98-107); Estimated GFR 63.54 (mL/min/1.73m2); Glucose 107 mg/dL (74-106); Potassium 4.5 mmol/L (3.5-5.1); Sodium 138 mmol/L (136-145); Total Protein 7.7 g/dL (6.4-8.2)
[2023-08-09 18:26] LABS: Ferritin 19 ng/mL (8-252)
[2023-08-10 18:13] LABS: AFP Tumor Marker 4.8 ng/mL (<8.1)
== END 2023-08-09 09:41 | disposition home or self-care (01) ==
LOC: LBN 09:40
PROVIDERS: PCP Family Medicine; Visit Provider Internal Medicine Gastroenterology
DX: K70.30 Alcoholic cirrhosis of liver without ascites (principal); D63.8 Anemia in other chronic diseases classified elsewhere
CPT/HCPCS: 80053; 82105; 82728; 85025; 85610

== ENCOUNTER 2023-09-23 16:18 | Outpatient (REF) | payer BC, SELFPAY ==
[2023-09-23 15:38] LABS: Absolute Basophil Count 0.04 10^3/uL (0.0-0.2); Absolute Eosinophil Count 0.11 10^3/uL (0.0-0.7); Absolute Neutrophil Count 4.58 10^3/uL (1.2-6.7); Basophils % 0.6; Eosinophils % 1.7; HCT 48.2 % (36.0-46.0); HGB 15.6 g/dL (11.2-15.7); Lymphocytes % 20.2; MCH 25.8 pg (27.0-33.0); MCHC 32.4 % (32.0-36.0); MCV 80 fL (80-95); MPV 10.4 fL (8.0-11.0); Monocytes % 6.2; Neutrophils % 71.3; Platelet Count 354 10^3/uL (130-400); RBC 6.04 10^6/uL (3.93-5.22); RDW 13.7 % (11.7-14.6); RDW-SD 39.4 fL; WBC 6.43 10^3/uL (4.4-10.8)
[2023-09-23 15:47] LABS: Iron 89 ug/dL (50-170); Total Iron Binding Capacity 345 ug/dL (250-450)
[2023-09-23 16:50] LABS: Ferritin 26 ng/mL (8-252)
== END 2023-09-23 16:19 | disposition home or self-care (01) ==
LOC: LBN 16:18
PROVIDERS: PCP Family Medicine; Visit Provider Nurse Practitioner
DX: D50.0 Iron deficiency anemia secondary to blood loss (chronic) (principal)
CPT/HCPCS: 82728; 83540; 83550; 85025

== ENCOUNTER 2024-02-15 21:51 | Outpatient (REF) | payer BC, SELFPAY ==
[2024-02-15 21:47] LABS: Abs Immature Grans 0.02 10^3/uL (0.0-0.06); Absolute Basophil Count 0.05 10^3/uL (0.0-0.2); Absolute Eosinophil Count 0.18 10^3/uL (0.0-0.7); Absolute Lymphocyte Count 1.76 10^3/uL (1.2-3.4); Absolute Monocyte Count 0.59 10^3/uL (0.1-0.8); Absolute Neutrophil Count 7.59 10^3/uL (1.2-6.7); Basophils % 0.5 %; Eosinophils % 1.8 %; HCT 48.3 % (36.0-46.0); HGB 16.1 g/dL (11.2-15.7); Immature Grans % 0.2 %; Lymphocytes % 17.3 %; MCH 27.5 pg (27.0-33.0); MCHC 33.3 % (32.0-36.0); MCV 83 fL (80-95); MPV 10.6 fL (8.0-11.0); Monocytes % 5.8 %; Neutrophils % 74.4 %; Platelet Count 387 10^3/uL (130-400); RBC 5.85 10^6/uL (3.93-5.22); RDW 13.3 % (11.7-14.6); RDW-SD 39.6 fL; WBC 10.19 10^3/uL (4.4-10.8)
[2024-02-15 22:08] LABS: ALT 22 U/L (14-59); AST 24 U/L (15-37); Albumin 4.3 g/dL (3.4-5.0); Alkaline Phosphatase 62 U/L (46-116); Anion Gap 9.7 mmol/L (3-11); BUN 10 mg/dL (7-18); Bilirubin, Total 0.44 mg/dL (0.2-1.0); CO2 24.3 mmol/L (21.0-32.0); CREATININE 1.1 mg/dL (0.55-1.02); Calcium 9.2 mg/dL (8.5-10.1); Chloride 108 mmol/L (98-107); Estimated GFR 63.15 (mL/min/1.73m2); Glucose 130 mg/dL (74-106); Potassium 4.1 mmol/L (3.5-5.1); Sodium 142 mmol/L (136-145); Total Protein 7.9 g/dL (6.4-8.2)
[2024-02-15 23:32] LABS: Prothrombin Time 9.8 sec (9.1-11.1)
[2024-02-17 13:14] LABS: AFP Tumor Marker 5.5 ng/mL (<8.1)
== END 2024-02-15 21:52 | disposition home or self-care (01) ==
LOC: NCHCN 21:51
PROVIDERS: PCP Family Medicine; Visit Provider Internal Medicine Gastroenterology
DX: K70.30 Alcoholic cirrhosis of liver without ascites (principal)
CPT/HCPCS: 80053; 82105; 85025; 85610

== ENCOUNTER 2024-06-13 21:58 | Outpatient (REF) | payer BC, SELFPAY ==
--- NOTE | 2024-06-13 17:00 | PAPFT_PTH ---
PATIENT: Violet Cowan LOC: [facility]#:[id number] AGE/SX: 43/F ROOM: RE06/13/[address]: SKINNY: 1980 BED: DIS: 06/13/2024 SPEC #: [id number] RECD: 06/14/24 12:24 STATUS: LAWANDA ALVAREZ #: [id number] ELVIS: 06/13/24 17:[address]: Noa Goss DEPT: [facility] Cytology RECD BY: Raine Juarez ENTERED: 06/14/24 12:25 SP TYPE: PAPFT OTHR DR: Leidy Fitzgerald Tissues: 1 - CX/ENDOCX FOR PAP SMEARS Procedures: PAP THIN PREP/[facility] Screening HPV DNA PROBE Comments: [id number] (HPV 16 & 18/45)
[2024-06-13 22:12] LABS: TSH (W/Ref FT4) 3.32 uIU/mL (0.36-3.74)
== END 2024-06-13 21:59 | disposition home or self-care (01) ==
LOC: NCHCN 21:58
PROVIDERS: PCP Family Medicine; Visit Provider Family Medicine
DX: E66.3 Overweight (principal); Z12.4 Encounter for screening for malignant neoplasm of cervix
CPT/HCPCS: 88142; 84443; 87624

== ENCOUNTER 2024-08-15 16:45 | Outpatient (REF) | payer BC, SELFPAY ==
[2024-08-15 21:03] LABS: Abs Immature Grans 0.03 10^3/uL (0.0-0.06); Absolute Basophil Count 0.05 10^3/uL (0.0-0.2); Absolute Eosinophil Count 0.18 10^3/uL (0.0-0.7); Absolute Lymphocyte Count 2.11 10^3/uL (1.2-3.4); Absolute Monocyte Count 0.63 10^3/uL (0.1-0.8); Basophils % 0.6 %; HCT 46.3 % (36.0-46.0); HGB 15.1 g/dL (11.2-15.7); Immature Grans % 0.3 %; MCH 27.1 pg (27.0-33.0); MCHC 32.6 % (32.0-36.0); MCV 83 fL (80-95); MPV 10.5 fL (8.0-11.0); Monocytes % 7.2 %; Neutrophils % 65.9 %; Platelet Count 374 10^3/uL (130-400); RBC 5.58 10^6/uL (3.93-5.22); RDW 13.4 % (11.7-14.6); RDW-SD 40.8 fL
[2024-08-15 21:09] LABS: Prothrombin Time 10.1 sec (9.1-11.1)
[2024-08-15 21:13] LABS: ALT 17 U/L (14-59); AST 25 U/L (15-37); Albumin 4.2 g/dL (3.4-5.0); Alkaline Phosphatase 54 U/L (46-116); Anion Gap 4.5 mmol/L (3-11); BUN 12 mg/dL (7-18); Bilirubin, Total 0.36 mg/dL (0.2-1.0); CO2 29.5 mmol/L (21.0-32.0); CREATININE 0.9 mg/dL (0.55-1.02); Calcium 9.1 mg/dL (8.5-10.1); Chloride 105 mmol/L (98-107); Estimated GFR 80.34 (mL/min/1.73m2); Glucose 108 mg/dL (74-106); Potassium 4.3 mmol/L (3.5-5.1); Sodium 139 mmol/L (136-145); Total Protein 7.7 g/dL (6.4-8.2)
[2024-08-17 07:24] LABS: AFP Tumor Marker 5.1 ng/mL (<8.1)
== END 2024-08-15 16:46 | disposition home or self-care (01) ==
LOC: LBN 16:45
PROVIDERS: PCP Family Medicine; Visit Provider Internal Medicine Gastroenterology
DX: K70.30 Alcoholic cirrhosis of liver without ascites (principal)
CPT/HCPCS: 80053; 82105; 85025; 85610

== ENCOUNTER 2025-03-20 19:25 | Outpatient (REF) | payer BC, SELFPAY | END 2025-03-20 19:26 | disposition home or self-care (01) | LOC: NCHCN 19:25 | PROVIDERS: PCP Family Medicine; Visit Provider Family Medicine | DX: R39.9 Unspecified symptoms and signs involving the genitourinary system (principal); B96.29 Other Escherichia coli [E. coli] as the cause of diseases classified elsewhere; R82.89 Other abnormal findings on cytological and histological examination of urine | CPT/HCPCS: 87077; 87086; 87186 ==

== ENCOUNTER 2025-04-17 19:26 | Outpatient (REF) | payer BC, SELFPAY | END 2025-04-17 19:27 | disposition home or self-care (01) | LOC: NCHCN 19:26 | PROVIDERS: PCP Family Medicine; Visit Provider Family Medicine | DX: R35.0 Frequency of micturition (principal) | CPT/HCPCS: 87077; 87086; 87186 ==